=== PATIENT | female | born 1965 | race American Indian/Alaskan Native ===

== ENCOUNTER 2018-11-25 14:24 | Inpatient (IN) | payer MEDICAID ==
[2018-11-25] MEDS ORDERED: VANCOMYCIN PHARMACY TO DOSE IV SCH (15:00)
[2018-11-25 15:37] LABS: Hemoglobin 11.5 gm/dl (10.1-14.3); Mean Corpuscular HGB Conc 31 % (30-34); Mean Corpuscular Volume 74 fl (79-97); Platelet Count 505 K/mm3 (140-440); Red Blood Count 5.03 M/mm3 (3.65-5.03); Red Cell Distribution Width 14.4 % (13.2-15.2)
[2018-11-25 15:54] LABS: Alanine Aminotransferase 27 units/L (7-56); Albumin 3.2 g/dL (3.9-5); BUN/Creatinine Ratio 18; Blood Urea Nitrogen 7 mg/dL (7-17); Calcium 9.6 mg/dL (8.4-10.2); Hemolysis Index 1
[2018-11-25] MEDS ORDERED: VANCOMYCIN 2,000 MG in NACL 0.9% 500 ML 500 ML IV ONE (16:00)
--- NOTE | 2018-11-25 16:18 | XRay Report ---
CHEST 1 VIEW INDICATION: abscess. Fever COMPARISON: FINDINGS: Support devices: None. Heart: Mild cardiomegaly. Lungs/Pleura: Pulmonary venous congestion and trace left pleural effusion. No obvious pneumonia. Additional findings: None. IMPRESSION: Mild volume overload. Signer Name: Ifeanyi Galvan Jr, MD Signed: 11/25/2018 4:13 PM Workstation Name: [id number]
[2018-11-25 16:21] LABS: Hypochromasia 1+; Total Cells Counted 100
--- NOTE | 2018-11-25 16:47 | Emergency Department Report ---
- General Chief Complaint: Skin/Abscess/Foreign Body Stated Complaint: RUPTURED ABSCESS Time Seen by Provider: 11/25/18 14:38 Source: EMS Mode of arrival: Stretcher Limitations: No Limitations - History of Present Illness Initial Comments: Mrs. Márquez is a 53 year old female who presents with abscess. Mrs. Márquez has a history of several medical conditions including meningioma hypertension, diabetes mellitus, seizures, respiratory failure, sarcoidosis, type hypothyroidism, severe obesity, dyslipidemia, sleep apnea, duodenal ulcer, GI bleed, fibromyalgia. She is bedbound. She resides at [facility], which is a retirement facility. She stated that the abscess in her left upper quadrant has been present for a week and a half. The abscess began draining today. She also has surrounding redness. She denies fever. She has mild discomfort. -: Gradual, week(s) (1.5) Location: abdomen 1 - Redness extending from large abscess Place: home Associated Symptoms: none - Related Data Allergies Allergy/AdvReac Type Severity Reaction Status Date / Time No Known Allergies Allergy Unverified 11/25/18 15:07 ED Review of Systems ROS: Stated complaint: RUPTURED ABSCESS Other details as noted in HPI Comment: All other systems reviewed and negative Constitutional: denies: fever, malaise Cardiovascular: denies: chest pain Gastrointestinal: denies: abdominal pain, nausea, vomiting Skin: lesions ED Past Medical Hx - Past Medical History Previous Medical History?: Yes Hx Diabetes: Yes Additional medical history: respiratory failure,hypothyroidism,sleep apnea,encaphalopath,sarcoidosis,fibromyalgia,anemia - Surgical History Past Surgical History?: Yes Additional Surgical History: Daughter states patient did have a feeding tube previously - Social History Smoking Status: Never Smoker ED Physical Exam - General Limitations: No Limitations General appearance: alert, in no apparent distress, other (alert and able to provide history no acute distress appears chronically ill, mostly immobile) - Head Head exam: Present: atraumatic, normocephalic - Eye Eye exam: Present: normal appearance - ENT ENT exam: Present: mucous membranes moist - Neck Neck exam: Present: normal inspection - Respiratory Respiratory exam: Present: normal lung sounds bilaterally. Absent: respiratory distress, wheezes, rales, rhonchi - Cardiovascular Cardiovascular Exam: Present: regular rate, normal rhythm, normal heart sounds. Absent: systolic murmur, diastolic murmur, rubs, gallop - GI/Abdominal GI/Abdominal exam: Present: soft, other (large abscess LUQ 1 cm ulcer/openin ounces of pus expressed with active drainage, extensive erythema/cellulitis involving the abdomen). Absent: guarding, rebound, rigid - Extremities Exam Extremities exam: Present: normal inspection - Back Exam Back exam: Present: normal inspection - Neurological Exam Neurological exam: Present: alert, oriented X3 - Psychiatric Psychiatric exam: Present: normal affect, normal mood - Skin Skin exam: Absent: rash ED Course Vital Signs 11/25/18 11/25/18 11/25/18 14:38 16:00 16:30 Temperature 99 F Pulse Rate 99 H 100 H Respiratory 18 18 35 H Rate Blood Pressure 113/56 102/48 Blood Pressure [Left] O2 Sat by Pulse 100 100 94 Oximetry 11/25/18 11/25/18 11/25/18 17:17 18:03 18:57 Temperature Pulse Rate 78 110 H 108 H Respiratory 18 32 H 25 H Rate Blood Pressure Blood Pressure 97/47 115/37 95/48 [Left] O2 Sat by Pulse 100 99 100 Oximetry 11/25/18 19:22 Temperature Pulse Rate 108 H Respiratory 18 Rate Blood Pressure Blood Pressure 117/51 [Left] O2 Sat by Pulse 100 Oximetry ED Medical Decision Making - Lab Data Result diagrams: 11/25/18 15:22 11/25/18 15:22 Laboratory Results - last 24 hr 11/25/18 11/25/18 11/25/18 15:22 15:22 15:22 WBC 15.1 H RBC 5.03 Hgb 11.5 Hct 37.0 MCV 74 L MCH 23 L MCHC 31 RDW 14.4 Plt Count 505 H Add Manual Diff Complete Total Counted 100 Seg Neuts % (Manual) 73.0 H Band Neutrophils % 0 Lymphocytes % (Manual) 13.0 L Reactive Lymphs % (Man) 0 Monocytes % (Manual) 12.0 H Eosinophils % (Manual) 1.0 Basophils % (Manual) 1.0 Metamyelocytes % 0 Myelocytes % 0 Promyelocytes % 0 Blast Cells % 0 Nucleated RBC % Not Reportable Seg Neutrophils # Man 11.0 H Band Neutrophils # 0.0 Lymphocytes # (Manual) 2.0 Abs React Lymphs (Man) 0.0 Monocytes # (Manual) 1.8 H Eosinophils # (Manual) 0.2 Basophils # (Manual) 0.2 H Metamyelocytes # 0.0 Myelocytes # 0.0 Promyelocytes # 0.0 Blast Cells # 0.0 WBC Morphology Not Reportable Hypersegmented Neuts Not Reportable Hyposegmented Neuts Not Reportable Hypogranular Neuts Not Reportable Smudge Cells Not Reportable Toxic Granulation Not Reportable Toxic Vacuolation Not Reportable Dohle Bodies Not Reportable Pelger-Huet Anomaly Not Reportable Marcel Rods Not Reportable Platelet Estimate Not Reportable Clumped Platelets Not Reportable Plt Clumps, EDTA Not Reportable Large Platelets Not Reportable Giant Platelets Not Reportable Platelet Satelliting Not Reportable Plt Morphology Comment Not Reportable RBC Morphology Not Reportable Dimorphic RBCs Not Reportable Polychromasia Not Reportable Hypochromasia 1+ Poikilocytosis Not Reportable Anisocytosis Not Reportable Microcytosis Not Reportable Macrocytosis Not Reportable Spherocytes Not Reportable Pappenheimer Bodies Not Reportable Sickle Cells Not Reportable Target Cells Not Reportable Tear Drop Cells Not Reportable Ovalocytes Not Reportable Helmet Cells Not Reportable Moran-Cantril Bodies Not Reportable [place] Rings Not Reportable Humble Cells Not Reportable Bite Cells Not Reportable Crenated Cell Not Reportable Elliptocytes Not Reportable Acanthocytes (Spur) Not Reportable Rouleaux Not Reportable Hemoglobin C Crystals Not Reportable Schistocytes Not Reportable Malaria parasites Not Reportable Levi Bodies Not Reportable Hem Pathologist Commnt No Sodium 133 L Potassium 3.7 Chloride 96.6 L Carbon Dioxide 22 Anion Gap 18 BUN 7 Creatinine 0.4 L Estimated GFR > 60 BUN/Creatinine Ratio 18 Glucose 400 H Lactic Acid 2.50 H* Calcium 9.6 Total Bilirubin 0.50 AST 28 ALT 27 Alkaline Phosphatase 236 H Total Protein 7.5 Albumin 3.2 L Albumin/Globulin Ratio 0.7 11/25/18 16:05 WBC RBC Hgb Hct MCV MCH MCHC RDW Plt Count Add Manual Diff Total Counted Seg Neuts % (Manual) Band Neutrophils % Lymphocytes % (Manual) Reactive Lymphs % (Man) Monocytes % (Manual) Eosinophils % (Manual) Basophils % (Manual) Metamyelocytes % Myelocytes % Promyelocytes % Blast Cells % Nucleated RBC % Seg Neutrophils # Man Band Neutrophils # Lymphocytes # (Manual) Abs React Lymphs (Man) Monocytes # (Manual) Eosinophils # (Manual) Basophils # (Manual) Metamyelocytes # Myelocytes # Promyelocytes # Blast Cells # WBC Morphology Hypersegmented Neuts Hyposegmented Neuts Hypogranular Neuts Smudge Cells Toxic Granulation Toxic Vacuolation Dohle Bodies Pelger-Huet Anomaly Marcel Rods Platelet Estimate Clumped Platelets Plt Clumps, EDTA Large Platelets Giant Platelets Platelet Satelliting Plt Morphology Comment RBC Morphology Dimorphic RBCs Polychromasia Hypochromasia Poikilocytosis Anisocytosis Microcytosis Macrocytosis Spherocytes Pappenheimer Bodies Sickle Cells Target Cells Tear Drop Cells Ovalocytes Helmet Cells Moran-Cantril Bodies [place] Rings Humble Cells Bite Cells Crenated Cell Elliptocytes Acanthocytes (Spur) Rouleaux Hemoglobin C Crystals Schistocytes Malaria parasites Levi Bodies Hem Pathologist Commnt Sodium Potassium Chloride Carbon Dioxide Anion Gap BUN Creatinine Estimated GFR BUN/Creatinine Ratio Glucose Lactic Acid 2.40 H* Calcium Total Bilirubin AST ALT Alkaline Phosphatase Total Protein Albumin Albumin/Globulin Ratio - Radiology Data Radiology results: report reviewed CT abdomen and pelvis, area of induration with limitation ill-defined fluid and gas but was an anterior abdominal wall of the left upper quadrant possibly related to previous gastrostomy tube - Medical Decision Making Large abdominal wall abscess, with cellulitis. I consulted general surgeon Dr. West, she agreed to follow patient. Hospitalist service will admit. Broad spectrum Antibiotics initiated in the emergency department. Labs notable for leukocytosis 15,000, lactic acid 2.4. Critical care attestation.: If time is entered above; I have spent that time in minutes in the direct care of this critically ill patient, excluding procedure time. ED Disposition Clinical Impression: Abdominal wall cellulitis, Abdominal wall abscess Disposition: OP ADMIT IP TO THIS HOSP Is pt being admited?: Yes Does the pt Need Aspirin: No Condition: Stable
[2018-11-25] MEDS ORDERED: NACL 0.9% 1000 ML 1,000 ML IV ONE (16:48)
--- NOTE | 2018-11-25 18:32 | Cat Scan Report ---
CT ABDOMEN AND PELVIS WITH CONTRAST INDICATION / CLINICAL INFORMATION: abdominal wall abscess left side abscess for two weeks and it burst today. TECHNIQUE: Axial CT images were obtained through the abdomen and pelvis after IV contrast. All CT scans at this location are performed using CT dose reduction for ALARA by means of automated exposure control. COMPARISON: None available. FINDINGS: LOWER CHEST: Mild bibasilar atelectasis. LIVER: No significant abnormality. GALLBLADDER: Not visualized. Surgically absent versus extremely contracted. BILE DUCTS: No significant abnormality. PANCREAS: No significant abnormality. SPLEEN: No significant abnormality. ADRENALS: No significant abnormality. RIGHT KIDNEY and URETER: No significant abnormality. LEFT KIDNEY and URETER: No significant abnormality. STOMACH and SMALL BOWEL: Metallic density along the anterior wall of the stomach just beneath the abd ominal wall likely related to previous surgery, possibly gastrostomy tube. No significantly dilated l oops of small bowel. COLON: The cecum is hypermobile and located in the anterior abdomen within a lax lower anterior abdom inal wall. APPENDIX: Not definitely visualized. PERITONEUM: No free fluid. No free air. No fluid collection. LYMPH NODES: No significant adenopathy. AORTA and ARTERIES: No significant abnormality. IVC and VEINS: No significant abnormality. URINARY BLADDER: No significant abnormality. REPRODUCTIVE ORGANS: No significant abnormality. ADDITIONAL FINDINGS: In addition to the metallic density along the anterior wall the stomach, there i s a curvilinear metallic density in the adjacent anterior abdominal wall likely related to previous s urgery, again possibly previous gastrostomy tube. There is moderate surrounding induration in the ant erior abdominal wall with inflammation extending into the right upper quadrant with ill-defined fluid and several gas bubbles. No discrete, drainable collection is present at this time. Inflammatory pro cess extends to the skin in the left upper abdomen as seen on axial series 7 image 48. SKELETAL SYSTEM: No significant abnormality. IMPRESSION: 1. Area of induration with inflammation and ill-defined fluid and gas bubbles in the anterior abdomin al wall with the epicenter in the left upper quadrant possibly related to previous gastrostomy tube. No discrete drainable fluid collection at this time. Signer Name: Otoniel Simmons MD Signed: 11/25/2018 6:27 PM Workstation Name: [id number]
--- NOTE | 2018-11-25 22:01 | History and Physical Report ---
History of Present Illness Date of examination: 11/25/18 History of present illness: 53-year-old male with multiple medical problems including hypertension, diabetes, seizures, meningioma, sarcoidosis, hypothyroidism, hyperlipidemia, sleep apnea, duodenal ulcer, morbid obesity presented emergency room for evaluation of purulent drainage from the previous PEG tube site. complain of pain, unable to give details. Review of system difficult to obtain PAST MEDICAL HISTORY:hypertension, diabetes, seizures, meningioma, sarcoidosis, hypothyroidism, hyperlipidemia, sleep apnea, duodenal ulcer, morbid obesity PAST SURGICAL HISTORY:PEG tube FAMILY HISTORY:hypertension, diabetes SOCIAL HISTORY: Denies tobacco, drugs, alcohol Medications and Allergies Allergies Allergy/AdvReac Type Severity Reaction Status Date / Time No Known Allergies Allergy Unverified 11/25/18 15:07 Home Medications Medication Instructions Recorded Confirmed Last Taken Type Atorvastatin Calcium 40 mg PO BID 11/26/18 11/26/18 11/25/18 08:00 History Cholecalciferol Vit D3 [Vitamin D3 1,000 1000units PO QDAY 11/26/18 11/26/18 11/25/18 08:00 History 1,000 UNIT TAB] Eliquis 5 mg PO QDAY 11/26/18 11/26/18 Unknown History HYDROcodone/APAP 5-325 [[place] 1 each PO Q4HR PRN 11/26/18 11/26/18 Unknown History 5/325] Hydrocortisone [Cortef TAB] 10 mg PO BID 11/26/18 11/26/18 Unknown History Insulin Lispro Prot/Lispro 45 SUB-Q BID 11/26/18 Unknown History [HumaLOG Mix 75/25 Vial] Lasix TAB 20 mg PO BID 11/26/18 11/26/18 Unknown History Levothyroxine [Synthroid] 50 mcg PO QAM 11/26/18 11/26/18 11/24/18 08:00 History Lispro Insulin [HumaLOG] See Protocol SUB-Q 11/26/18 11/25/18 History Metoprolol [Lopressor TAB] 50 mg PO BID 11/26/18 11/26/18 Unknown History Mometasone 0.1% (Nf) BID 11/26/18 Unknown History Pantoprazole [Protonix] 40 mg PO BID 11/26/18 11/26/18 Unknown History Pregabalin [Lyrica] 150 mg PO BID 11/26/18 11/26/18 11/25/18 08:00 History Active Meds: Active Medications Enoxaparin Sodium (Lovenox) 30 mg SUB-Q QDAY VIOLETA Vancomycin HCl 1,500 mg/ (Sodium Chloride) 530 mls @ 333.333 mls/hr IV Q12H [facility] Exam - Physical Exam Narrative exam: General Apperance: The patient sitting in bed no acute distress HEENT: Normocephalic, atraumatic. Pupils equally round and reactive to light, extraocular movement intact, and no sclericterus or JVD or thyromegaly or nodule. Neck supple, no carotid bruit, mucous membranes moist, no exudate or erythema Heart: S1-S2, regular is rhythm Lungs: Clear to auscultation bilaterally, breathing comfortable Abdomen: Positive bowel sounds, soft, tender in LUQ, + erythema, foul smelling discharge leaking from the PEG tube site, nondistended, no organomegaly Extremities: trace edema, no cyanosis clubbing Skin: no rash, nodule, warm and dry Neuro:CN 2 -12 intact,speech is fluent - Constitutional Vitals: Temp Pulse Resp BP Pulse Ox 99 F 114 H 35 H 120/46 95 11/25/18 14:38 11/25/18 21:00 11/25/18 21:00 11/25/18 21:00 11/25/18 21:00 Results - Labs CBC & Chem 7: 11/26/18 04:15 11/26/18 04:15 Labs: Abnormal lab results 11/25/18 11/25/18 11/25/18 Range/Units 15:22 15:22 15:22 WBC 15.1 H (4.5-11.0) K/mm3 MCV 74 L (79-97) fl MCH 23 L (28-32) pg Plt Count 505 H (140-440) K/mm3 Seg Neuts % (Manual) 73.0 H (40.0-70.0) % Lymphocytes % (Manual) 13.0 L (13.4-35.0) % Monocytes % (Manual) 12.0 H (0.0-7.3) % Seg Neutrophils # Man 11.0 H (1.8-7.7) K/mm3 Monocytes # (Manual) 1.8 H (0.0-0.8) K/mm3 Basophils # (Manual) 0.2 H (0.0-0.1) K/mm3 Sodium 133 L (137-145) mmol/L Chloride 96.6 L (98-107) mmol/L Creatinine 0.4 L (0.7-1.2) mg/dL Glucose 400 H (65-100) mg/dL Lactic Acid 2.50 H* (0.7-2.0) mmol/L Alkaline Phosphatase 236 H (35-129) units/L Albumin 3.2 L (3.9-5) g/dL 11/25/ Range/Units 16:05 WBC (4.5-11.0) K/mm3 MCV (79-97) fl MCH (28-32) pg Plt Count (140-440) K/mm3 Seg Neuts % (Manual) (40.0-70.0) % Lymphocytes % (Manual) (13.4-35.0) % Monocytes % (Manual) (0.0-7.3) % Seg Neutrophils # Man (1.8-7.7) K/mm3 Monocytes # (Manual) (0.0-0.8) K/mm3 Basophils # (Manual) (0.0-0.1) K/mm3 Sodium (137-145) mmol/L Chloride (98-107) mmol/L Creatinine (0.7-1.2) mg/dL Glucose (65-100) mg/dL Lactic Acid 2.40 H* (0.7-2.0) mmol/L Alkaline Phosphatase (35-129) units/L Albumin (3.9-5) g/dL - Imaging and Cardiology Chest x-ray: report reviewed CT scan - abdomen: report reviewed CT scan - pelvis: report reviewed Assessment and Plan Assessment Abdominal abscess hypertension diabetes seizures meningioma sarcoidosis hypothyroidism hyperlipidemia sleep apnea duodenal ulcer morbid obesity Plan Admit to medicine Start IV fluid, IV Zosyn, vancomycin Obtain wound culture, follow blood culture Surgery was consulted to see the patient Checks fingersticks, start sliding scale Continue appropriate outpatient medications DVT prophylaxis
[2018-11-25] MEDS ORDERED: ZOSYN/NS 4.5GM/100ML 4.5 GM/100 ML VIAL IV ONE (22:52)
[2018-11-25] MEDS: ZOSYN/NS 4.5GM/100ML 4.5 GM/100 ML VIAL IV SCH (23:26)
[2018-11-25] MEDS ORDERED: HumuLIN R ONE (23:50)
[2018-11-26] MEDS ORDERED: SODIUM CHLORIDE FLUSH SYRINGE 10 ML IV PRN (00:14)
[2018-11-26] MEDS ORDERED: ZOFRAN IV PRN ×2 (00:14→11:17)
[2018-11-26] MEDS ORDERED: MORPHINE IV PRN ×2 (00:14→15:00)
[2018-11-26] MEDS ORDERED: D50W (25GM) Syringe IV PRN ×2 (00:15→17:17)
[2018-11-26 04:56] LABS: BUN/Creatinine Ratio 15; Blood Urea Nitrogen 6 mg/dL (7-17); Calcium 9.1 mg/dL (8.4-10.2); Hemolysis Index 0
[2018-11-26 05:09] LABS: Hematocrit 35.2 % (30.3-42.9); Hemoglobin 11.1 gm/dl (10.1-14.3); Mean Corpuscular HGB Conc 32 % (30-34); Mean Corpuscular Volume 72 fl (79-97); Platelet Count 507 K/mm3 (140-440); Red Blood Count 4.86 M/mm3 (3.65-5.03); Red Cell Distribution Width 14.4 % (13.2-15.2)
[2018-11-26] MEDS: NACL 0.9% 1000 ML 1,000 ML IV SCH ×2 (05:38→11:35)
[2018-11-26] MEDS: VANCOMYCIN 1,500 MG in NACL 0.9% 500 ML 500 ML IV SCH ×2 (06:10→18:13)
[2018-11-26] MEDS: ZOSYN/NS 4.5GM/100ML 4.5 GM/100 ML VIAL IV SCH ×3 (06:10→21:20)
[2018-11-26 07:13] LABS: Basophils % (Manual) 0 % (0.0-1.8); Eosinophils % (Manual) 0 % (0.0-4.3); Total Cells Counted 100
[2018-11-26 07:14] LABS: Anisocytosis 1+; Hypochromasia 1+; Platelet Estimate Consistent w Auto; Poikilocytosis Rare
[2018-11-26] MEDS ORDERED: LOVENOX SUB-Q SCH (10:00)
--- NOTE | 2018-11-26 10:38 | Consultation ---
History of Present Illness Consult date: 11/26/18 Chief complaint: abdominal drainage - History of present illness History of present illness: 53 yo F with Hx of HTN, DM, bedbound status presents for evaluation of abdominal pain and drainage. Patient states pain is located in the left upper abdomen. This started several days ago. It is moderate and there are no exacerbating or alleviating factors. Pain does not radiate. There is drainage is the location of the pain. The drainage is brown and foul smelling. She had a PEG last year which has since been removed. +f/c. She has had abscess in the past which required surgical drainage and debridement. Past History Past Medical History: diabetes, hypertension, hyperlipidemia, other (obesity, bedbound, brain tumor, thigh abscess) Past Surgical History: (x3), Other (brain surgery, incision and drainage of thigh abscess) Social history: other (lives in [place]). denies: smoking, alcohol abuse, prescription drug abuse Family history: no significant family history Medications and Allergies Allergies Allergy/AdvReac Type Severity Reaction Status Date / Time erythromycin base Allergy Itching Verified 11/26/18 06:03 [From Erythrocin] Penicillins Allergy Rash Verified 11/26/18 06:02 Home Medications Medication Instructions Recorded Confirmed Last Taken Type Atorvastatin Calcium 40 mg PO BID 11/26/18 11/26/18 11/25/18 08:00 History Cholecalciferol Vit D3 [Vitamin D3 1,000 1000units PO QDAY 11/26/18 11/26/18 11/25/18 08:00 History 1,000 UNIT TAB] Eliquis 5 mg PO QDAY 11/26/18 11/26/18 Unknown History HYDROcodone/APAP 5-325 [[place] 1 each PO Q4HR PRN 11/26/18 11/26/18 Unknown History 5/325] Hydrocortisone [Cortef TAB] 10 mg PO BID 11/26/18 11/26/18 Unknown History Insulin Glargine,Hum.rec.anlog 11/26/18 Unknown History [Lantus Solostar] Insulin Glargine,Hum.rec.anlog 60 unit SQ QHS 11/26/18 11/26/18 Unknown History [Lantus Solostar] Insulin Lispro Prot/Lispro 45 SUB-Q BID 11/26/18 Unknown History [HumaLOG Mix 75/25 Vial] Lasix TAB 20 mg PO BID 11/26/18 11/26/18 Unknown History Levothyroxine [Synthroid] 50 mcg PO QAM 11/26/18 11/26/18 11/24/18 08:00 History Lispro Insulin [HumaLOG] See Protocol SUB-Q 11/26/18 11/25/18 History Metoprolol [Lopressor TAB] 50 mg PO BID 11/26/18 11/26/18 Unknown History Mometasone 0.1% (Nf) 0.1 TP BID 11/26/18 Unknown History Pantoprazole [Protonix] 40 mg PO BID 11/26/18 11/26/18 Unknown History Petrolatum,White [Vaseline White 5 gm TP BID 11/26/18 11/26/18 Unknown History Petroleum] Pregabalin [Lyrica] 150 mg PO BID 11/26/18 11/26/18 11/25/18 08:00 History lamoTRIgine [LaMICtal] 25 mg PO BID 11/26/18 11/26/18 Unknown History Active Meds: Active Medications Acetaminophen (Tylenol) 650 mg PO Q4H PRN PRN Reason: Pain MILD(1-3)/Fever >100.5/TANG Dextrose (D50w (25gm) Syringe) 50 ml IV PRN PRN PRN Reason: Hypoglycemia Enoxaparin Sodium (Lovenox) 40 mg SUB-Q QDAY@1000 VIOLETA Vancomycin HCl 1,500 mg/ (Sodium Chloride) 530 mls @ 333.333 mls/hr IV Q12H VIOLETA Last Admin: 11/26/18 06:10 Dose: 333.333 mls/hr Documented by: Sodium Chloride (Nacl 0.9% 1000 Ml) 1,000 mls @ 100 mls/hr IV DIRECT VIOLETA Last Admin: 11/26/18 05:38 Dose: 100 mls/hr Documented by: Piperacillin Sod/Tazobactam Sod (Zosyn/Ns 4.5gm/100ml) 4.5 gm in 100 mls @ 200 mls/hr IV Q8HR [facility]; Protocol Last Admin: 11/26/18 06:10 Dose: Not Given Documented by: Morphine Sulfate (Morphine) 1 mg IV Q4H PRN PRN Reason: Pain, Moderate (4-6) Ondansetron HCl (Zofran) 4 mg IV Q4H PRN PRN Reason: Nausea And Vomiting Sodium Chloride (Sodium Chloride Flush Syringe 10 Ml) 10 ml IV BID VIOLETA Sodium Chloride (Sodium Chloride Flush Syringe 10 Ml) 10 ml IV PRN PRN PRN Reason: LINE FLUSH Review of Systems All systems: negative (10 pt ROS performed and negative except for that listed in HPI) Exam Vital Signs Temp Pulse Resp BP Pulse Ox 99 F 99 H 18 113/56 100 11/25/18 14:38 11/25/18 14:38 11/25/18 14:38 11/25/18 14:38 11/25/18 14:38 Narrative exam: Gen: AAOx3. NAD ENT: no scleral icterus or conjunctival pallor CV: s1, S2+ Resp: even and unlabored Abd: soft, ND, obese. Copious purulent drainage from skin opening in left upper abdomen with minimal surrounding TTP. Dressing applied. Ext: no c/c/e Results - Labs 11/26/18 04:15 11/26/18 04:15 Abnormal lab results 11/25/18 11/25/18 11/25/18 Range/Units 15:22 15:22 15:22 WBC 15.1 H (4.5-11.0) K/mm3 MCV 74 L (79-97) fl MCH 23 L (28-32) pg Plt Count 505 H (140-440) K/mm3 Seg Neuts % (Manual) 73.0 H (40.0-70.0) % Lymphocytes % (Manual) 13.0 L (13.4-35.0) % Monocytes % (Manual) 12.0 H (0.0-7.3) % Seg Neutrophils # Man 11.0 H (1.8-7.7) K/mm3 Monocytes # (Manual) 1.8 H (0.0-0.8) K/mm3 Basophils # (Manual) 0.2 H (0.0-0.1) K/mm3 Sodium 133 L (137-145) mmol/L Chloride 96.6 L (98-107) mmol/L BUN (7-17) mg/dL Creatinine 0.4 L (0.7-1.2) mg/dL Glucose 400 H (65-100) mg/dL Lactic Acid 2.50 H* (0.7-2.0) mmol/L Alkaline Phosphatase 236 H (35-129) units/L Albumin 3.2 L (3.9-5) g/dL 11/25/18 11/26/18 11/26/18 Range/Units 16:05 04:15 04:15 WBC 14.8 H (4.5-11.0) K/mm3 MCV 72 L (79-97) fl MCH 23 L (28-32) pg Plt Count 507 H (140-440) K/mm3 Seg Neuts % (Manual) 73.0 H (40.0-70.0) % Lymphocytes % (Manual) (13.4-35.0) % Monocytes % (Manual) 8.0 H (0.0-7.3) % Seg Neutrophils # Man 10.8 H (1.8-7.7) K/mm3 Monocytes # (Manual) 1.2 H (0.0-0.8) K/mm3 Basophils # (Manual) (0.0-0.1) K/mm3 Sodium (137-145) mmol/L Chloride (98-107) mmol/L BUN 6 L (7-17) mg/dL Creatinine 0.4 L (0.7-1.2) mg/dL Glucose 340 H (65-100) mg/dL Lactic Acid 2.40 H* (0.7-2.0) mmol/L Alkaline Phosphatase (35-129) units/L Albumin (3.9-5) g/dL Diabetes panel 11/25/18 11/26/18 Range/Units 15:22 04:15 Sodium 133 L 137 (137-145) mmol/L Potassium 3.7 4.1 (3.6-5.0) mmol/L Chloride 96.6 L 99.6 (98-107) mmol/L Carbon Dioxide 22 23 (22-30) mmol/L BUN 7 6 L (7-17) mg/dL Creatinine 0.4 L 0.4 L (0.7-1.2) mg/dL Glucose 400 H 340 H (65-100) mg/dL Calcium 9.6 9.1 (8.4-10.2) mg/dL AST 28 (5-40) units/L ALT 27 (7-56) units/L Alkaline Phosphatase 236 H (35-129) units/L Total Protein 7.5 (6.3-8.2) g/dL Albumin 3.2 L (3.9-5) g/dL Calcium panel 11/25/18 11/26/18 Range/Units 15:22 04:15 Calcium 9.6 9.1 (8.4-10.2) mg/dL Albumin 3.2 L (3.9-5) g/dL Pituitary panel 11/25/18 11/26/18 Range/Units 15:22 04:15 Sodium 133 L 137 (137-145) mmol/L Potassium 3.7 4.1 (3.6-5.0) mmol/L Chloride 96.6 L 99.6 (98-107) mmol/L Carbon Dioxide 22 23 (22-30) mmol/L BUN 7 6 L (7-17) mg/dL Creatinine 0.4 L 0.4 L (0.7-1.2) mg/dL Glucose 400 H 340 H (65-100) mg/dL Calcium 9.6 9.1 (8.4-10.2) mg/dL Adrenal panel 11/25/18 11/26/18 Range/Units 15:22 04:15 Sodium 133 L 137 (137-145) mmol/L Potassium 3.7 4.1 (3.6-5.0) mmol/L Chloride 96.6 L 99.6 (98-107) mmol/L Carbon Dioxide 22 23 (22-30) mmol/L BUN 7 6 L (7-17) mg/dL Creatinine 0.4 L 0.4 L (0.7-1.2) mg/dL Glucose 400 H 340 H (65-100) mg/dL Calcium 9.6 9.1 (8.4-10.2) mg/dL Total Bilirubin 0.50 (0.1-1.2) mg/dL AST 28 (5-40) units/L ALT 27 (7-56) units/L Alkaline Phosphatase 236 H (35-129) units/L Total Protein 7.5 (6.3-8.2) g/dL Albumin 3.2 L (3.9-5) g/dL - Imaging CT scan - abdomen: report reviewed, image reviewed CT scan - pelvis: report reviewed, image reviewed Assessment and Plan 53 yo F with abdominal wall abscess Plan: 1. NPO 2. IVF 3. IV abx - on vanco/zosyn - received zosyn yesterday without allergic reaction 4. will obtain cultures 5. prn pain control 6. Will need drainage of abscess and debridement of wound in [place]. Consent obtained. 7. wound care consult for possible vac placement Spoke with patient's daughter over the telephone at patient's request and explained the plan. D/W Dr. Mg. Thank you, please call with questions.
[2018-11-26] MEDS: LOVENOX SUB-Q SCH (10:45)
[2018-11-26] MEDS: SODIUM CHLORIDE FLUSH SYRINGE 10 ML IV SCH ×2 (10:53→21:24)
[2018-11-26] MEDS ORDERED: SUBLIMAZE IV PRN (11:17)
--- NOTE | 2018-11-26 11:19 | Anesthesia Day of Surgery ---
Anesthesia Day of Surgery - Day of Surgery Patient Examined: Yes Patient H&P Reviewed: Yes Patient is NPO: Yes
--- NOTE | 2018-11-26 11:27 | Anesthesia Consultation ---
Anesthesia Consult and Med Hx Date of service: 11/26/18 - Airway Anesthetic Teeth Evaluation: Good ROM Head & Neck: Adequate Mental/Hyoid Distance: Adequate Mallampati Class: Class III Intubation Access Assessment: Probably Good - Pre-Operative Health Status ASA Pre-Surgery Classification: ASA3, Emergency Proposed Anesthetic Plan: General - Pulmonary Hx Smoking: Yes (past smoker stopped 30yrs ago) Hx Asthma: No COPD: No Hx Pneumonia: No Hx Sleep Apnea: Yes - Cardiovascular System Hx Hypertension: Yes Hx Coronary Artery Disease: No (ETT last year negative per pt) Hx Heart Attack/AMI: No Hx Angina: No Hx Percutaneous Transluminal Coronary Angioplasty (PTCA): No Hx Internal Defibrillator: No Hx Peripheral Vascular Disease: No - Central Nervous System Hx Seizures: Yes (Hx meningioma) CVA: No Hx Psychiatric Problems: No - Gastrointestinal Hx Ulcer: Yes (Hx PEG Tube) - Endocrine Hx Renal Disease: No Hx End Stage Renal Disease: No Hx Cirrhosis: No Hx Liver Disease: No Hx Insulin Dependent Diabetes: Yes Hx Thyroid Disease: Yes Hx Hypothyroidism: Yes Hx Hyperthyroidism: No - Hematic Hx Anemia: Yes - Other Systems Hx Alcohol Use: Yes (past in parties) Hx Substance Use: No Hx Cancer: No Hx Obesity: Yes
[2018-11-26] MEDS ORDERED: VERSED IV NR (12:00)
[2018-11-26] MEDS ORDERED: HumuLIN R IV SCH ×2 (12:00→13:42)
--- NOTE | 2018-11-26 12:47 | Consultation ---
History of Present Illness - Reason for Consult Consult date: 11/26/18 - History of Present Illness Ms. Estrada is a 53-year-old female with a past medical history of hypertension, diabetes, history of being bedbound who initially presented with abdominal pain and drainage. She notes this began several days prior to admission and has been progressive since then. The pain is mostly in the left upper quadrant, does not radiate. She complains of drainage at the site of the pain which is brown and foul smelling and began 4 days prior to admission, though the bubble was present for longer. She notes having similar issues in the past with an associated abscess which was surgically debrided and drained. She complains of associated fevers and chills. I saw her in PACU after her surgery. Febrile during admission to 100.9 with a leukocytosis of 15. Blood cultures from 11/25 are currently pending. She is currently receiving vancomycin and pip- tazo. Chest x-ray with mild fluid overload. Abdominal CT with fluids/gas bubble in the abdominal wall. She has been evaluated by general surgery and was taken for drainage in the OR. Copious pus noted with tunnelling abscess. Past History Past Medical History: diabetes, hypertension, hyperlipidemia, other (obesity, bedbound, brain tumor, thigh abscess) Past Surgical History: (x3), Other (brain surgery, incision and drainage of thigh abscess) Social history: other (lives in [place]). denies: smoking, alcohol abuse, prescription drug abuse Family history: diabetes, hypertension Medications and Allergies Allergies Allergy/AdvReac Type Severity Reaction Status Date / Time erythromycin base Allergy Itching Verified 11/26/18 06:03 [From Erythrocin] Penicillins Allergy Rash Verified 11/26/18 06:02 Home Medications Medication Instructions Recorded Confirmed Last Taken Type Atorvastatin Calcium 40 mg PO BID 11/26/18 11/26/18 11/25/18 08:00 History Cholecalciferol Vit D3 [Vitamin D3 1,000 1000units PO QDAY 11/26/18 11/26/18 11/25/18 08:00 History 1,000 UNIT TAB] Eliquis 5 mg PO QDAY 11/26/18 11/26/18 Unknown History HYDROcodone/APAP 5-325 [[place]it[place] 1 each PO Q4HR PRN 11/26/18 11/26/18 Unknown History 5/325] Hydrocortisone [Cortef TAB] 10 mg PO BID 11/26/18 11/26/18 Unknown History Insulin Glargine,Hum.rec.anlog 11/26/18 Unknown History [Lantus Solostar] Insulin Glargine,Hum.rec.anlog 60 unit SQ QHS 11/26/18 11/26/18 Unknown History [Lantus Solostar] Insulin Lispro Prot/Lispro 45 SUB-Q BID 11/26/18 Unknown History [HumaLOG Mix 75/25 Vial] Lasix TAB 20 mg PO BID 11/26/18 11/26/18 Unknown History Levothyroxine [Synthroid] 50 mcg PO QAM 11/26/18 11/26/18 11/24/18 08:00 History Lispro Insulin [HumaLOG] See Protocol SUB-Q 11/26/18 11/25/18 History Metoprolol [Lopressor TAB] 50 mg PO BID 11/26/18 11/26/18 Unknown History Mometasone 0.1% (Nf) 0.1 TP BID 11/26/18 Unknown History Pantoprazole [Protonix] 40 mg PO BID 11/26/18 11/26/18 Unknown History Petrolatum,White [Vaseline White 5 gm TP BID 11/26/18 11/26/18 Unknown History Petroleum] Pregabalin [Lyrica] 150 mg PO BID 11/26/18 11/26/18 11/25/18 08:00 History lamoTRIgine [LaMICtal] 25 mg PO BID 11/26/18 11/26/18 Unknown History Active Meds: Active Medications Acetaminophen (Tylenol) 650 mg PO Q4H PRN PRN Reason: Pain MILD(1-3)/Fever >100.5/TANG Dextrose (D50w (25gm) Syringe) 50 ml IV PRN PRN PRN Reason: Hypoglycemia Enoxaparin Sodium (Lovenox) 40 mg SUB-Q QDAY@1000 VIOLETA Last Admin: 11/26/18 10:45 Dose: 40 mg Documented by: Fentanyl (Sublimaze) 50 mcg IV Q5MIN PRN PRN Reason: Pain , Severe (7-10) Stop: 11/26/18 23:00 Hydromorphone HCl (Dilaudid) 0.5 mg IV Q10MIN PRN PRN Reason: Pain , Severe (7-10) Stop: 11/26/18 23:00 Vancomycin HCl 1,500 mg/ (Sodium Chloride) 530 mls @ 333.333 mls/hr IV Q12H [facility] Last Admin: 11/26/18 06:10 Dose: 333.333 mls/hr Documented by: Sodium Chloride (Nacl 0.9% 1000 Ml) 1,000 mls @ 100 mls/hr IV DIRECT [facility] Last Admin: 11/26/18 11:35 Dose: 100 mls/hr Documented by: Piperacillin Sod/Tazobactam Sod (Zosyn/Ns 4.5gm/100ml) 4.5 gm in 100 mls @ 200 mls/hr IV Q8HR [facility]; Protocol Last Admin: 11/26/18 06:10 Dose: Not Given Documented by: Midazolam HCl (Versed) 2 mg IV PREOP NR Stop: 11/26/18 23:59 Morphine Sulfate (Morphine) 1 mg IV Q4H PRN PRN Reason: Pain, Moderate (4-6) Ondansetron HCl (Zofran) 4 mg IV Q4H PRN PRN Reason: Nausea And Vomiting Ondansetron HCl (Zofran) 4 mg IV ONCE PRN PRN Reason: Nausea And Vomiting Sodium Chloride (Sodium Chloride Flush Syringe 10 Ml) 10 ml IV BID [facility] Last Admin: 11/26/18 10:53 Dose: 10 ml Documented by: Sodium Chloride (Sodium Chloride Flush Syringe 10 Ml) 10 ml IV PRN PRN PRN Reason: LINE FLUSH Review of Systems Constitutional: fever, chills, no sweats, no fatigue Ears, nose, mouth and throat: no nasal discharge, no sinus pain, no sore throat Cardiovascular: no chest pain, no orthopnea, no palpitations, no edema Respiratory: no cough, no hemoptysis, no shortness of breath, no dyspnea on exertion Gastrointestinal: abdominal pain, no nausea, no vomiting, no diarrhea Genitourinary Female: no dysuria, no urinary frequency, no urgency Musculoskeletal: no neck pain, no low back pain, no leg numbness/tingling Integumentary: sores, no rash, no pruritis, no redness Neurological: no numbness, no tingling, no seizures, no syncope Endocrine: no cold intolerance, no heat intolerance, no polyuria Hematologic/Lymphatic: no easy bruising, no easy bleeding, no lymphadenopathy Physical Examination - Physical Exam Narrative exam: Constitutional: awake, no distress, following commands Head, Ears, Nose: Normocephalic, atraumatic. External ears, nose normal Eyes: Conjunctivae/corneas clear. No icterus. No ptosis. Neck: Supple, no meningeal signs Oral: fair dentition, moist mucous membranes Cardiovascular: S1, S2 normal. Normal rhythm Respiratory: Good air entry, clear to auscultation bilaterally GI: tender due to surgery. Not undressed in PACU. Musculoskeletal: No pedal edema, Skin: No rash or abscess Hem/Lymphatic: No palpable cervical or supraclavicular nodes. No lymphangitis Psych: no agitation Neurological: Moves all extremities, no focal defects - Constitutional Vitals: Vital Signs Temp Pulse Resp BP Pulse Ox 99 F 119 H 22 144/63 98 11/26/18 10:55 11/26/18 10:55 11/26/18 10:55 11/26/18 10:55 11/26/18 10:55 Temperature -Last 24 Hours Temperature 99 F Temperature 100.9 F Temperature 100.9 F Temperature 99.4 F Temperature 100.4 F Temperature 100.4 F Temperature 99 F Results - Labs CBC & Chem 7: 11/26/18 04:15 11/26/18 04:15 Labs: Abnormal lab results 11/25/18 11/25/18 11/25/18 Range/Units 15:22 15:22 15:22 WBC 15.1 H (4.5-11.0) K/mm3 MCV 74 L (79-97) fl MCH 23 L (28-32) pg Plt Count 505 H (140-440) K/mm3 Seg Neuts % (Manual) 73.0 H (40.0-70.0) % Lymphocytes % (Manual) 13.0 L (13.4-35.0) % Monocytes % (Manual) 12.0 H (0.0-7.3) % Seg Neutrophils # Man 11.0 H (1.8-7.7) K/mm3 Monocytes # (Manual) 1.8 H (0.0-0.8) K/mm3 Basophils # (Manual) 0.2 H (0.0-0.1) K/mm3 Sodium 133 L (137-145) mmol/L Chloride 96.6 L (98-107) mmol/L BUN (7-17) mg/dL Creatinine 0.4 L (0.7-1.2) mg/dL Glucose 400 H (65-100) mg/dL POC Glucose (70-105) Lactic Acid 2.50 H* (0.7-2.0) mmol/L Alkaline Phosphatase 236 H (35-129) units/L Albumin 3.2 L (3.9-5) g/dL 11/25/18 11/26/18 11/26/18 Range/Units 16:05 04:15 04:15 WBC 14.8 H (4.5-11.0) K/mm3 MCV 72 L (79-97) fl MCH 23 L (28-32) pg Plt Count 507 H (140-440) K/mm3 Seg Neuts % (Manual) 73.0 H (40.0-70.0) % Lymphocytes % (Manual) (13.4-35.0) % Monocytes % (Manual) 8.0 H (0.0-7.3) % Seg Neutrophils # Man 10.8 H (1.8-7.7) K/mm3 Monocytes # (Manual) 1.2 H (0.0-0.8) K/mm3 Basophils # (Manual) (0.0-0.1) K/mm3 Sodium (137-145) mmol/L Chloride (98-107) mmol/L BUN 6 L (7-17) mg/dL Creatinine 0.4 L (0.7-1.2) mg/dL Glucose 340 H (65-100) mg/dL POC Glucose (70-105) Lactic Acid 2.40 H* (0.7-2.0) mmol/L Alkaline Phosphatase (35-129) units/L Albumin (3.9-5) g/dL 11/26/18 11/26/18 Range/Units 11:16 12:41 WBC (4.5-11.0) K/mm3 MCV (79-97) fl MCH (28-32) pg Plt Count (140-440) K/mm3 Seg Neuts % (Manual) (40.0-70.0) % Lymphocytes % (Manual) (13.4-35.0) % Monocytes % (Manual) (0.0-7.3) % Seg Neutrophils # Man (1.8-7.7) K/mm3 Monocytes # (Manual) (0.0-0.8) K/mm3 Basophils # (Manual) (0.0-0.1) K/mm3 Sodium (137-145) mmol/L Chloride (98-107) mmol/L BUN (7-17) mg/dL Creatinine (0.7-1.2) mg/dL Glucose (65-100) mg/dL POC Glucose 348 H 325 H (70-105) Lactic Acid (0.7-2.0) mmol/L Alkaline Phosphatase (35-129) units/L Albumin (3.9-5) g/dL - Imaging and Cardiology Chest x-ray: image reviewed (mild fluid overload) CT scan - abdomen: image reviewed (fluid/gas bubble in abdominal wall) Assessment and Plan Cultures: 11/25/18 BCx - NGTD A/P: Ms. Estrada is a 53-year-old female with a past medical history of hypertension, diabetes, history of being bedbound presents with sepsis secondary to abdominal wall abscess 1. Sepsis secondary to abdominal wall abscess - now s/p debridement with si gnificant abscess formation seen and tunneling deep. 2 foreign metallic objects found. Cultures taken per surgery and are pending. Appreciate their help in this case. Will continue vanc and pip-tazo for now pending culture results and hopefully we can de-escalate. Will likely need a couple weeks of IV antibiotics, but will depend on ongoing drainage of abscess. 2. HTN 3. DM2 Recs: Continue pip-tazo 4.5g q8h continue vancomycin vanc trough after 4th dose. f/u blood and abscess cultures D/W Dr. West Thank you for the consult. We will continue to follow along with you. Diamond Pathak MD [facility] ([facility] C: [phone] O: [phone] F: [phone]
[2018-11-26] MEDS ORDERED: DIPRIVAN 10 MG/ML IV ONE ×4 (13:37)
[2018-11-26] MEDS ORDERED: MARCAINE 0.25% INFILTRATI ONE ×2 (13:38→14:07)
[2018-11-26] MEDS ORDERED: NACL 0.9% IR ONE ×2 (13:38)
[2018-11-26] MEDS ORDERED: XYLOCAINE 1% 20 mL INFILTRATI ONE (13:38)
[2018-11-26] MEDS ORDERED: SUBLIMAZE ONE (13:43)
[2018-11-26] MEDS ORDERED: VERSED ONE (13:43)
[2018-11-26] MEDS ORDERED: XYLOCAINE MPF 2% ONE (14:00)
[2018-11-26] MEDS ORDERED: XYLOCAINE 1% 20 mL ONE (14:07)
--- NOTE | 2018-11-26 14:43 | Post Operative Note ---
Date of procedure: 11/26/18 Pre-op diagnosis: abdominal wall abscess Post-op diagnosis: same Findings: Large abdominal wall abscess with cavity tunnelling towards the right lower abdomen for about 12 inches. Large amount of purulent fluid. Abscess cavity extends to fascia. Two small metallic foreign objects found in abscess cavity likely related to old PEG tube Procedure: incision and drainage of abdominal wall abscess and debridement of wound Anesthesia: MAC, local Surgeon: NICA CHEEMA Estimated blood loss: minimal Pathology: list (wound cultures) Specimen disposition: to lab Condition: stable Disposition: PACU
[2018-11-26] MEDS: DILAUDID IV PRN ×2 (15:02→15:13)
--- NOTE | 2018-11-26 15:42 | Operative Report ---
PREOPERATIVE DIAGNOSIS: Abdominal wall abscess. POSTOPERATIVE DIAGNOSIS: Abdominal wall abscess. FINDINGS: 1. Large abdominal wall abscess with cavity tunneling towards the right lower abdomen for about 12 inches. Large amount of purulent fluid. Abscess cavity extends to the fascia. 2. Two small metallic foreign objects found an abscess cavity, likely related to old PEG tube. PROCEDURE: Incision and drainage of abdominal wall abscess and debridement of wound. ANESTHESIA: MAC local. SURGEON: Nery West DO ESTIMATED BLOOD LOSS: Minimal. PATHOLOGY: 1. Wound cultures. 2. Foreign objects for identification. SPECIMEN DISPOSITION: To lab. CONDITION DISPOSITION: The patient is stable to PACU. HISTORY OF PRESENT ILLNESS AND INDICATION: The patient is a 53-year-old female who has a history of a PEG tube and who is bedbound, presented to the Emergency Room with complaints of abdominal pain and drainage. On examination of the patient, it was found that her PEG tube had been removed about a year ago and her abdominal wall did have an area with a copious amount of purulent drainage as well as surrounding erythema and tenderness. This was her old PEG site. It was recommended that she undergo further incision and drainage as well as debridement of the abscess cavity in the OR. All risks, benefits and alternatives to surgery were discussed with the patient. Consent obtained. PROCEDURE IN DETAIL: The patient was identified in the preoperative area and taken back to the operating room and placed on the operating table in supine position. After anesthesia was induced, the abdomen was prepped and draped in the usual sterile fashion. Timeout performed. Local anesthetic was infiltrated into the skin and subcutaneous tissue at the intended incision site. The wound was probed and abscess cultures obtained. A tunneler was found going from the wound to the patient's right lower abdomen. This was probed with Yankauer suction until all loculations were broken up and purulent material was expressed. The wound was opened in order to unroof part of this tunnel using a 15 blade. Dissection was carried through skin and subcutaneous tissue using electrocautery. Abscess cavity was deep and extended all the way down to the patient's fascia. Surrounding subcutaneous tissue and fascia were intact and healthy. The wound was then irrigated with pulse lavage. Hemostasis achieved using combination of electrocautery as well as Surgicel packing. Pressure was held at the sites of bleeding for 10 minutes until hemostasis was ensured. Once this was done, the wound was packed with 1 piece of saline moistened Kerlix covered with 4 x 4 fluff gauze, ABD pads and Medipore tape. At the end of the case, all sponge, instrument, sharp counts were correct x 2. The patient tolerated the procedure well and was transferred to the stretcher and taken to PACU in stable condition. JOB# [id number] NK/NTS
[2018-11-26] MEDS ORDERED: HumuLIN R IV ONE (16:00)
--- NOTE | 2018-11-26 17:18 | Progress Note ---
Assessment and Plan Assessment and plan: Patient is a 53-year-old female with a past medical history of hypertension, diabetes, seizures, meningioma, sarcoidosis, hypothyroidism, hyperlipidemia, sleep apnea, duodenal ulcer, morbid obesity, history of being bedbound who initially presented with abdominal pain and drainage and was noted ot have area of indurating with inflammation and ill-defined fluid and gas bubbles. On Evaluation of PEG tube site it was noted to have induration Febrile during admission to 100.9 with a leukocytosis of 15. Blood cultures from 11/25 are currently pending. She is currently receiving vancomycin and pip- tazo. Chest x-ray with mild fluid overload. Abdominal CT with fluids/gas bubble in the abdominal wall. She has been evaluated by general surgery and was taken for drainage in the OR. Copious pus noted with tunnelling abscess. CT A/P IMPRESSION: 1. Area of induration with inflammation and ill-defined fluid and gas bubbles in the anterior abdominal wall with the epicenter in the left upper quadrant possibly related to previous gastrostomy tube. No discrete drainable fluid collection at this time Sepsis secondary to Abdominal abscess hypertension Diabetes Mellitus Seizures meningioma Sarcoidosis hypothyroidism hyperlipidemia Sleep apnea Duodenal ulcer morbid obesity Acute Encephalopathy- worsening per daughter. Plan Supportive care ID consult Continue IV fluid, IV Zosyn, vancomycin CT head per daughters request due to changing mental status, Daughter understan ds that we do not have Neurosurgery. Insulin FOR BETTER CONTROL OF BG. Also revisit med rec in am following OR Obtain wound culture, follow blood culture Surgery was consulted to see the patient Checks fingersticks, start sliding scale Continue appropriate outpatient medications DVT prophylaxis History Interval history: Patient is seen and examined today, no new complaints. Patient going for surgery today for abscess drainage. Spoke to daughter who states patients mental status has been declined. Hospitalist Physical - Physical exam Narrative exam: General Apperance: The patient sitting in bed no acute distress HEENT: Normocephalic, atraumatic. Pupils equally round and reactive to light, extraocular movement intact, and no sclericterus or JVD or thyromegaly or nodule. Neck supple, no carotid bruit, mucous membranes moist, no exudate or erythema Heart: S1-S2, regular is rhythm Lungs: Clear to auscultation bilaterally, breathing comfortable Abdomen: Positive bowel sounds, soft, tender in LUQ, + erythema, foul smelling discharge leaking from the PEG tube site, nondistended, no organomegaly Extremities: trace edema, no cyanosis clubbing Skin: no rash, nodule, warm and dry Neuro:CN 2 -12 intact,speech is fluent - Constitutional Vitals: Temp Pulse Resp BP Pulse Ox 98.1 F 114 H 24 129/62 96 11/26/18 15:15 11/26/18 15:30 11/26/18 15:30 11/26/18 15:30 11/26/18 15:30 Results - Labs CBC & Chem 7: 11/26/18 04:15 11/26/18 04:15 Labs: Laboratory Last Values WBC 14.8 K/mm3 (4.5-11.0) H 11/26/18 04:15 RBC 4.86 M/mm3 (3.65-5.03) 11/26/18 04:15 Hgb 11.1 gm/dl (10.1-14.3) 11/26/18 04:15 Hct 35.2 % (30.3-42.9) 11/26/18 04:15 MCV 72 fl (79-97) L 11/26/18 04:15 MCH 23 pg (28-32) L 11/26/18 04:15 MCHC 32 % (30-34) 11/26/18 04:15 RDW 14.4 % (13.2-15.2) 11/26/18 04:15 Plt Count 507 K/mm3 (140-440) H 11/26/18 04:15 Lymph % (Auto) [employer] 11/26/18 04:15 Harper % (Auto) [employer] 11/26/18 04:15 Eos % (Auto) [employer] 11/26/18 04:15 Baso % (Auto) [employer] 11/26/18 04:15 Lymph # [employer] 11/26/18 04:15 Harper # [employer] 11/26/18 04:15 Eos # [employer] 11/26/18 04:15 Baso # [employer] 11/26/18 04:15 Add Manual Diff Complete 11/26/18 04:15 Total Counted 100 11/26/18 04:15 Seg Neutrophils % [employer] 11/26/18 04:15 Seg Neuts % (Manual) 73.0 % (40.0-70.0) H 11/26/18 04:15 0 % 11/26/18 04:15 19.0 % (13.4-35.0) 11/26/18 04:15 Reactive Lymphs % (Man) 0 % 11/26/18 04:15 8.0 % (0.0-7.3) H 11/26/18 04:15 0 % (0.0-4.3) 11/26/18 04:15 0 % (0.0-1.8) 11/26/18 04:15 0 % 11/26/18 04:15 0 % 11/26/18 04:15 0 % 11/26/18 04:15 0 % 11/26/18 04:15 Nucleated RBC % Not Reportable 11/26/18 04:15 Seg Neutrophils # [employer] 11/26/18 04:15 Seg Neutrophils # Man 10.8 K/mm3 (1.8-7.7) H 11/26/18 04:15 Band Neutrophils # 0.0 K/mm3 11/26/18 04:15 2.8 K/mm3 (1.2-5.4) 11/26/18 04:15 Abs React Lymphs (Man) 0.0 K/mm3 11/26/18 04:15 1.2 K/mm3 (0.0-0.8) H 11/26/18 04:15 0.0 K/mm3 (0.0-0.4) 11/26/18 04:15 0.0 K/mm3 (0.0-0.1) 11/26/18 04:15 0.0 K/mm3 11/26/18 04:15 0.0 K/mm3 11/26/18 04:15 0.0 K/mm3 11/26/18 04:15 Blast Cells # 0.0 K/mm3 11/26/18 04:15 WBC Morphology Not Reportable 11/26/18 04:15 Hypersegmented Neuts Not Reportable 11/26/18 04:15 Hyposegmented Neuts Not Reportable 11/26/18 04:15 Hypogranular Neuts Not Reportable 11/26/18 04:15 Not Reportable 11/26/18 04:15 Not Reportable 11/26/18 04:15 Not Reportable 11/26/18 04:15 Not Reportable 11/26/18 04:15 Not Reportable 11/26/18 04:15 Not Reportable 11/26/18 04:15 Consistent w auto 11/26/18 04:15 Not Reportable 11/26/18 04:15 Plt Clumps, EDTA Not Reportable 11/26/18 04:15 Not Reportable 11/26/18 04:15 Not Reportable 11/26/18 04:15 Not Reportable 11/26/18 04:15 Plt Morphology Comment Not Reportable 11/26/18 04:15 RBC Morphology Not Reportable 11/26/18 04:15 Dimorphic RBCs Not Reportable 11/26/18 04:15 Not Reportable 11/26/18 04:15 1+ 11/26/18 04:15 Rare 11/26/18 04:15 1+ 11/26/18 04:15 Not Reportable 11/26/18 04:15 Not Reportable 11/26/18 04:15 Not Reportable 11/26/18 04:15 Not Reportable 11/26/18 04:15 Not Reportable 11/26/18 04:15 Not Reportable 11/26/18 04:15 Not Reportable 11/26/18 04:15 Not Reportable 11/26/18 04:15 Not Reportable 11/26/18 04:15 Not Reportable 11/26/18 04:15 Not Reportable 11/26/18 04:15 Not Reportable 11/26/18 04:15 Not Reportable 11/26/18 04:15 Not Reportable 11/26/18 04:15 Not Reportable 11/26/18 04:15 Acanthocytes (Spur) Not Reportable 11/26/18 04:15 Rouleaux Not Reportable 11/26/18 04:15 Not Reportable 11/26/18 04:15 Not Reportable 11/26/18 04:15 Not Reportable 11/26/18 04:15 Not Reportable 11/26/18 04:15 Hem Pathologist Commnt No 11/26/18 04:15 Sodium 137 mmol/L (137-145) 11/26/18 04:15 Potassium 4.1 mmol/L (3.6-5.0) 11/26/18 04:15 Chloride 99.6 mmol/L (98-107) 11/26/18 04:15 Carbon Dioxide 23 mmol/L (22-30) 11/26/18 04:15 19 mmol/L 11/26/18 04:15 BUN 6 mg/dL (7-17) L 11/26/18 04:15 0.4 mg/dL (0.7-1.2) L 11/26/18 04:15 Estimated GFR > 60 ml/min 11/26/18 04:15 15 % 11/26/18 04:15 Glucose 340 mg/dL (65-100) H 11/26/18 04:15 POC Glucose 299 (70-105) H 11/26/18 16:28 Lactic Acid 2.40 mmol/L (0.7-2.0) H* 11/25/18 16:05 Calcium 9.1 mg/dL (8.4-10.2) 11/26/18 04:15 0.50 mg/dL (0.1-1.2) 11/25/18 15:22 AST 28 units/L (5-40) 11/25/18 15:22 ALT 27 units/L (7-56) 11/25/18 15:22 236 units/L (35-129) H 11/25/18 15:22 7.5 g/dL (6.3-8.2) 11/25/18 15:22 3.2 g/dL (3.9-5) L 11/25/18 15:22 0.7 % 11/25/18 15:22 Active Medications - Current Medications Current Medications: Generic Name Dose Route Start Last Admin Trade Name Freq PRN Reason Stop Dose Admin Acetaminophen 650 mg 11/26/18 00:14 Tylenol PO Q4H PRN Pain MILD(1-3)/Fever >100.5/TANG Acetaminophen/Hydrocodone Bitart 1 each 11/26/18 15:00 Irving 5/325 PO Q4H PRN Pain, Moderate (4-6) Cholecalciferol 1,000,000 unit 11/27/18 10:00 Vitamin D3 PO QDAY [facility]IOLETA Dextrose 50 ml 11/26/18 00:15 D50w (25gm) Syringe IV PRN PRN Hypoglycemia Dextrose 50 ml 11/26/18 17:17 D50w (25gm) Syringe IV PRN PRN Hypoglycemia Enoxaparin Sodium 40 mg 11/26/18 10:00 11/26/18 10:45 Lovenox SUB-Q 40 mg QDAY@1000 VIOLETA Administration Fentanyl 50 mcg 11/26/18 11:17 Sublimaze IV 11/26/18 23:00 Q5MIN PRN Pain , Severe (7-10) Hydrocortisone Acetate 10 mg 11/26/18 22:00 Cortef PO BID VIOLETA Hydromorphone HCl 0.5 mg 11/26/18 11:17 11/26/18 15:13 Dilaudid IV 11/26/18 23:00 0.5 mg Q10MIN PRN Administration Pain , Severe (7-10) Vancomycin HCl 1,500 mg/ 530 mls @ 333.333 mls/hr 11/26/18 06:00 11/26/18 06:10 Sodium Chloride IV 333.333 mls/hr Q12H [facility]IOLETA Administration Sodium Chloride 1,000 mls @ 100 mls/hr 11/25/18 22:00 11/26/18 11:35 Nacl 0.9% 1000 Ml IV 100 mls/hr DIRECT VIOLETA Administration Piperacillin Sod/Tazobactam Sod 4.5 gm in 100 mls @ 200 mls/hr 11/25/18 22:00 11/26/18 15:40 Zosyn/Ns 4.5gm/100ml IV Not Given Q8HR [facility] Protocol Insulin Human Lispro 0 unit 11/26/18 18:00 Humalog SUB-Q Q6HR [facility] Protocol Lamotrigine 25 mg 11/26/18 22:00 Lamictal PO BID [facility] Levothyroxine Sodium 50 mcg 11/27/18 10:00 Synthroid PO QAM [facility] Metoprolol Tartrate 50 mg 11/26/18 22:00 Lopressor PO BID [facility] Midazolam HCl 2 mg 11/26/18 12:00 Versed IV 11/26/18 23:59 PREOP NR Miscellaneous Medication 60 unit 11/26/18 22:00 Insulin Glargine,Hum.Rec.Anlog [Lantus Solostar] SQ QHS [facility] Miscellaneous Medication 20 mg 11/26/18 22:00 Lasix Tab PO BID [facility] Miscellaneous Medication 0.1 inch 11/26/18 22:00 Mometasone 0.1% (Nf) TP BID [facility] Miscellaneous Medication 150 mg 11/26/18 22:00 Pregabalin [Lyrica] PO BID [facility] Morphine Sulfate 2 mg 11/26/18 15:00 Morphine IV Q4H PRN Pain , Severe (7-10) Ondansetron HCl 4 mg 11/26/18 00:14 Zofran IV Q4H PRN Nausea And Vomiting Ondansetron HCl 4 mg 11/26/18 11:17 Zofran IV ONCE PRN Nausea And Vomiting Sodium Chloride 10 ml 11/26/18 10:00 11/26/18 10:53 Sodium Chloride Flush Syringe 10 Ml IV 10 ml BID [facility] Administration Sodium Chloride 10 ml 11/26/18 00:14 Sodium Chloride Flush Syringe 10 Ml IV PRN PRN LINE FLUSH
[2018-11-26] MEDS: HumaLOG SUB-Q SCH (18:38)
[2018-11-26] MEDS: LASIX PO SCH (18:39)
[2018-11-26] MEDS: LYRICA PO SCH (21:22)
[2018-11-26] MEDS: LaMICtal PO SCH (21:22)
[2018-11-26] MEDS: LOPRESSOR PO SCH (21:22)
[2018-11-26] MEDS: CORTEF PO SCH (21:22)
[2018-11-26] MEDS: TYLENOL PO PRN (21:59)
[2018-11-26] MEDS ORDERED: MOMETASONE 0.1% TP SCH (22:00)
[2018-11-26] MEDS ORDERED: LANTUS SUB-Q SCH (22:00)
[2018-11-26] MEDS ORDERED: INSULIN GLARGINE HUM REC ANLOG 60 UNIT SQ SCH (22:00)
[2018-11-26] MEDS ORDERED: NON-FORMULARY (Lasix Tab 20 MG) PO SCH (22:00)
[2018-11-26] MEDS ORDERED: NON-FORMULARY (Pregabalin [Lyrica] 150 MG) PO SCH (22:00)
[2018-11-27] MEDS: HumaLOG SUB-Q SCH ×5 (00:41→22:37)
[2018-11-27] MEDS: LASIX PO SCH ×2 (05:16→18:56)
[2018-11-27] MEDS: ZOSYN/NS 4.5GM/100ML 4.5 GM/100 ML VIAL IV SCH ×3 (05:16→22:27)
[2018-11-27] MEDS: VANCOMYCIN 1,500 MG in NACL 0.9% 500 ML 500 ML IV SCH ×2 (05:16→18:56)
--- NOTE | 2018-11-27 08:44 | Cat Scan Report ---
CT HEAD WITHOUT CONTRAST INDICATION : Altered mental status. TECHNIQUE: Axial imaging performed from the skull apex through the skull base without the use of con trast. Sagittal and coronal reformatted images. All CT scans at this location are performed using C T dose reduction for ALARA by means of automated exposure control. COMPARISON: None FINDINGS: Parenchyma: There is moderate bifrontal encephalomalacia, left greater than right. This appears to b e secondary to postsurgical changes. There is suggestion of a slightly hyperdense left parafalcine ma ss measuring 4.8 x 1.1 x 3.0 cm. This may represent residual meningioma. Please correlate with the pa tahira's history. A chronic focal infarct in the medial right occipital lobe measures 3.6 x 1.7 cm in axial plane. The remaining brain parenchyma is within normal limits. No evidence for acute hemorrhage or large acute infarct. Ventricles: There is mild compensatory enlargement of the frontal horns. Normal ventricular size ove rall. Bones: Bilateral frontal craniotomy changes. Sinuses: Sinuses and mastoid air cells are clear. Soft tissues: Soft tissues including the orbits appear normal. IMPRESSION: No acute intracranial process is identified. Moderate bifrontal encephalomalacia is ident ified which is probably secondary to surgery. There is also suggestion of a left parafalcine extra-ax ial mass which probably represents a meningioma. 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 Signer Name: Ifeanyi Galvan Jr, MD Signed: 11/27/2018 8:39 AM Workstation Name: [id number]
[2018-11-27] MEDS: LOPRESSOR PO SCH ×2 (10:47→22:50)
[2018-11-27] MEDS: CORTEF PO SCH ×2 (10:47→22:29)
[2018-11-27] MEDS: SYNTHROID PO SCH (10:48)
[2018-11-27] MEDS: LOVENOX SUB-Q SCH (10:49)
[2018-11-27] MEDS: LaMICtal PO SCH ×2 (10:49→22:29)
[2018-11-27] MEDS: VITAMIN D3 PO SCH (10:49)
[2018-11-27] MEDS: LYRICA PO SCH ×2 (10:50→22:29)
[2018-11-27] MEDS: SODIUM CHLORIDE FLUSH SYRINGE 10 ML IV SCH ×2 (10:51→22:28)
[2018-11-27] MEDS: NORCO 5/325 PO PRN (11:43)
--- NOTE | 2018-11-27 11:46 | Progress Note ---
Assessment and Plan Cultures: 11/25/18 BCx - NGTD 11/25/18 Wound CX: light growth of skin otoniel A/P: Ms. Estrada is a 53-year-old female with a past medical history of hypertension, diabetes, history of being bedbound presents with sepsis secondary to abdominal wall abscess 1. Sepsis secondary to abdominal wall abscess - Improved. no fevers. now s/p debridement with significant abscess formation seen and tunneling deep. 2 foreign metallic objects found. Cultures taken per surgery and are pending. Appreciate their help in this case. Will continue vanc and pip-tazo for now pending culture results and hopefully we can de-escalate. Dressing change at bedside tomorrow with possible placement of wound vac. Dr. West following. 2. HTN 3. DM2 Recs: Continue pip-tazo 4.5g q8h continue vancomycin vanc trough after 4th dose. [facility] M: [phone] O:[phone] Subjective Date of service: 11/27/18 Interval history: Patient sen and examined. Laying in bed, reports no acute distress or abdominal pain. +mild tenderness on exam. low grade fever. Objective - Exam Narrative Exam: Constitutional: awake, no distress, following commands Head, Ears, Nose: Normocephalic, atraumatic. External ears, nose normal Eyes: Conjunctivae/corneas clear. No icterus. No ptosis. Neck: Supple, no meningeal signs Oral: fair dentition, moist mucous membranes Cardiovascular: S1, S2 normal. Normal rhythm Respiratory: Good air entry, clear to auscultation bilaterally GI: tender due to surgery. minimal serosanguinous drainage on dressing. No drains. Musculoskeletal: No pedal edema, Skin: No rash or abscess Hem/Lymphatic: No palpable cervical or supraclavicular nodes. No lymphangitis Psych: no agitation Neurological: Moves all extremities, no focal defects - Constitutional Vitals: Vital Signs Temp Pulse Resp BP Pulse Ox 98.0 F 98 H 18 104/54 98 11/27/18 07:42 11/27/18 07:43 11/27/18 07:42 11/27/18 07:42 11/27/18 09:29 Temperature -Last 24 Hours Temperature 98.0 F Temperature 98.0 F Temperature 100.6 F Temperature 100.4 F Temperature 98.6 F Temperature 98.1 F Temperature 97.7 F - Labs CBC & Chem 7: 11/26/18 04:15 11/26/18 04:15 Labs: Abnormal lab results 11/26/18 11/26/18 11/26/18 Range/Units 12:41 13:29 14:57 POC Glucose 325 H 301 H 313 H (70-105) 11/26/18 11/26/18 11/27/18 Range/Units 15:38 16:28 00:11 POC Glucose 291 H 299 H 347 H (70-105)
--- NOTE | 2018-11-27 12:38 | Progress Note ---
Assessment and Plan 53 yo F s/p incision and drainage of abdominal wall abscess and debridement of wound, POD 1 Plan: 1. continue current diet, NPO p MN for possible OR tomorrow for dressing change 2. IVF - maintenance when NPO 3. IV abx per ID 4. follow up wound cultures 5. prn pain control 6. Will attempt dressing change at bedside tomorrow with duct layer supervisor and assess for placement of wound vac. If patient does not tolerate bedside dressing change, she will be added on to OR schedule for dressing change and possible wound vac placement Plan discussed with patient and patient's daughter at the bedside Thank you, please call with questions. Subjective Date of service: 11/27/18 Narrative: Pt seen and examined. c/o pain at surgical site. Tm 100.6. Objective Vital Signs - 12hr 11/27/18 11/27/18 11/27/18 04:17 07:42 07:43 Temperature 98.0 F 98.0 F Pulse Rate 91 H 98 H 98 H Respiratory 24 18 Rate Blood Pressure 116/64 104/54 O2 Sat by Pulse 96 99 98 Oximetry 11/27/18 09:29 Temperature Pulse Rate Respiratory Rate Blood Pressure O2 Sat by Pulse 98 Oximetry - General physical appearance Narrative Exam: Gen: AAOx3. NAD CV: s1, S2+ resp; even and unlabored Abd: soft, mild TTP over surgical site. Dressing c/d/i Ext: no c/c/e - Labs 11/26/18 04:15 11/26/18 04:15
[2018-11-27] MEDS: NACL 0.45% 1000 ML 1,000 ML IV SCH (15:55)
--- NOTE | 2018-11-27 16:26 | Progress Note ---
Assessment and Plan Assessment and plan: Patient is a 53-year-old female with a past medical history of hypertension, diabetes, seizures, meningioma, sarcoidosis, hypothyroidism, hyperlipidemia, sleep apnea, duodenal ulcer, morbid obesity, history of being bedbound who initially presented with abdominal pain and drainage and was noted ot have area of indurating with inflammation and ill-defined fluid and gas bubbles. On Evaluation of PEG tube site it was noted to have induration Febrile during admission to 100.9 with a leukocytosis of 15. Blood cultures from 11/25 are currently pending. She is currently receiving vancomycin and pip- tazo. Chest x-ray with mild fluid overload. Abdominal CT with fluids/gas bubble in the abdominal wall. She has been evaluated by general surgery and was taken for drainage in the OR. Copious pus noted with tunnelling abscess. s/p OR drainage 11/26/18 Large abdominal wall abscess with cavity tunnelling towards the right lower abdomen for about 12 inches. Large amount of purulent fluid. Abscess cavity extends to fascia. Two small metallic foreign objects found in abscess cavity likely related to old PEG tube CT A/P IMPRESSION: 1. Area of induration with inflammation and ill-defined fluid and gas bubbles in the anterior abdominal wall with the epicenter in the left upper quadrant possibly related to previous gastrostomy tube. No discrete drainable fluid collection at this time CT head: IMPRESSION: No acute intracranial process is identified. Moderate bifrontal encephalomalacia is identified which is probably secondary to surgery. There is also suggestion of a left parafalcine extra-axial mass which probably represents a meningioma. 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 Sepsis secondary to Abdominal abscess- POD 1 OR drainage hypertension Diabetes Mellitus With hyperglycmia Chronic Focal infarct in the right occipital lobe Seizures meningioma Sarcoidosis hypothyroidism hyperlipidemia Sleep apnea Duodenal ulcer morbid obesity Acute Encephalopathy- worsening per daughter. Plan Supportive care ID input noted Continue IV fluid, IV Zosyn, vancomycin Follow up wound cultures Adjust Insulin dose, patient also on Hydrocortizone making BG management difficult CT head per daughters request due to changing mental status, Daughter understands that we do not have Neurosurgery. Out Patient Neurosurgery follow up considering probably reoccurrance of mengioma in the setting of some mental status changes intermittently Insulin FOR BETTER CONTROL OF BG. Follow cultures Continue appropriate outpatient medications DVT prophylaxis History Interval history: Patient is seen and examined today, no new complaints. underwent drainage of abscess yesterday. Hospitalist Physical - Physical exam Narrative exam: General Apperance: The patient sitting in bed no acute distress HEENT: Normocephalic, atraumatic. Pupils equally round and reactive to light, extraocular movement intact, and no sclericterus or JVD or thyromegaly or nodule. Neck supple, no carotid bruit, mucous membranes moist, no exudate or erythema Heart: S1-S2, regular is rhythm Lungs: Clear to auscultation bilaterally, breathing comfortable Abdomen: Positive bowel sounds, soft, tender in LUQ, + erythema, dressing in place PEG tube site, non distended, no organomegaly Extremities: trace edema, no cyanosis clubbing Skin: no rash, nodule, warm and dry Neuro:CN 2 -12 intact,speech is fluent - Constitutional Vitals: Temp Pulse Resp BP Pulse Ox 98.0 F 98 H 18 104/54 98 11/27/18 07:42 11/27/18 07:43 11/27/18 07:42 11/27/18 07:42 11/27/18 09:29 Results - Labs CBC & Chem 7: 11/26/18 04:15 11/26/18 04:15 Labs: Laboratory Last Values WBC 14.8 K/mm3 (4.5-11.0) H 11/26/18 04:15 RBC 4.86 M/mm3 (3.65-5.03) 11/26/18 04:15 Hgb 11.1 gm/dl (10.1-14.3) 11/26/18 04:15 Hct 35.2 % (30.3-42.9) 11/26/18 04:15 MCV 72 fl (79-97) L 11/26/18 04:15 MCH 23 pg (28-32) L 11/26/18 04:15 MCHC 32 % (30-34) 11/26/18 04:15 RDW 14.4 % (13.2-15.2) 11/26/18 04:15 Plt Count 507 K/mm3 (140-440) H 11/26/18 04:15 Lymph % (Auto) Can Tester 11/26/18 04:15 Marshall % (Auto) Can Tester 11/26/18 04:15 Eos % (Auto) Can Tester 11/26/18 04:15 Baso % (Auto) Can Tester 11/26/18 04:15 Lymph # Can Tester 11/26/18 04:15 Marshall # Can Tester 11/26/18 04:15 Eos # Can Tester 11/26/18 04:15 Baso # Can Tester 11/26/18 04:15 Add Manual Diff Complete 11/26/18 04:15 Total Counted 100 11/26/18 04:15 Seg Neutrophils % Can Tester 11/26/18 04:15 Seg Neuts % (Manual) 73.0 % (40.0-70.0) H 11/26/18 04:15 0 % 11/26/18 04:15 19.0 % (13.4-35.0) 11/26/18 04:15 Reactive Lymphs % (Man) 0 % 11/26/18 04:15 8.0 % (0.0-7.3) H 11/26/18 04:15 0 % (0.0-4.3) 11/26/18 04:15 0 % (0.0-1.8) 11/26/18 04:15 0 % 11/26/18 04:15 0 % 11/26/18 04:15 0 % 11/26/18 04:15 0 % 11/26/18 04:15 Nucleated RBC % Not Reportable 11/26/18 04:15 Seg Neutrophils # Can Tester 11/26/18 04:15 Seg Neutrophils # Man 10.8 K/mm3 (1.8-7.7) H 11/26/18 04:15 Band Neutrophils # 0.0 K/mm3 11/26/18 04:15 2.8 K/mm3 (1.2-5.4) 11/26/18 04:15 Abs React Lymphs (Man) 0.0 K/mm3 11/26/18 04:15 1.2 K/mm3 (0.0-0.8) H 11/26/18 04:15 0.0 K/mm3 (0.0-0.4) 11/26/18 04:15 0.0 K/mm3 (0.0-0.1) 11/26/18 04:15 0.0 K/mm3 11/26/18 04:15 0.0 K/mm3 11/26/18 04:15 0.0 K/mm3 11/26/18 04:15 Blast Cells # 0.0 K/mm3 11/26/18 04:15 WBC Morphology Not Reportable 11/26/18 04:15 Hypersegmented Neuts Not Reportable 11/26/18 04:15 Hyposegmented Neuts Not Reportable 11/26/18 04:15 Hypogranular Neuts Not Reportable 11/26/18 04:15 Not Reportable 11/26/18 04:15 Not Reportable 11/26/18 04:15 Not Reportable 11/26/18 04:15 Not Reportable 11/26/18 04:15 Not Reportable 11/26/18 04:15 Not Reportable 11/26/18 04:15 Consistent w auto 11/26/18 04:15 Not Reportable 11/26/18 04:15 Plt Clumps, EDTA Not Reportable 11/26/18 04:15 Not Reportable 11/26/18 04:15 Not Reportable 11/26/18 04:15 Not Reportable 11/26/18 04:15 Plt Morphology Comment Not Reportable 11/26/18 04:15 RBC Morphology Not Reportable 11/26/18 04:15 Dimorphic RBCs Not Reportable 11/26/18 04:15 Not Reportable 11/26/18 04:15 1+ 11/26/18 04:15 Rare 11/26/18 04:15 1+ 11/26/18 04:15 Not Reportable 11/26/18 04:15 Not Reportable 11/26/18 04:15 Not Reportable 11/26/18 04:15 Not Reportable 11/26/18 04:15 Not Reportable 11/26/18 04:15 Not Reportable 11/26/18 04:15 Not Reportable 11/26/18 04:15 Not Reportable 11/26/18 04:15 Not Reportable 11/26/18 04:15 Not Reportable 11/26/18 04:15 Not Reportable 11/26/18 04:15 Not Reportable 11/26/18 04:15 Not Reportable 11/26/18 04:15 Not Reportable 11/26/18 04:15 Not Reportable 11/26/18 04:15 Acanthocytes (Spur) Not Reportable 11/26/18 04:15 Rouleaux Not Reportable 11/26/18 04:15 Not Reportable 11/26/18 04:15 Not Reportable 11/26/18 04:15 Not Reportable 11/26/18 04:15 Not Reportable 11/26/18 04:15 Hem Pathologist Commnt No 11/26/18 04:15 Sodium 137 mmol/L (137-145) 11/26/18 04:15 Potassium 4.1 mmol/L (3.6-5.0) 11/26/18 04:15 Chloride 99.6 mmol/L (98-107) 11/26/18 04:15 Carbon Dioxide 23 mmol/L (22-30) 11/26/18 04:15 19 mmol/L 11/26/18 04:15 BUN 6 mg/dL (7-17) L 11/26/18 04:15 0.4 mg/dL (0.7-1.2) L 11/26/18 04:15 Estimated GFR > 60 ml/min 11/26/18 04:15 15 % 11/26/18 04:15 Glucose 340 mg/dL (65-100) H 11/26/18 04:15 POC Glucose 304 (70-105) H 11/27/18 12:54 Lactic Acid 2.40 mmol/L (0.7-2.0) H* 11/25/18 16:05 Calcium 9.1 mg/dL (8.4-10.2) 11/26/18 04:15 0.50 mg/dL (0.1-1.2) 11/25/18 15:22 AST 28 units/L (5-40) 11/25/18 15:22 ALT 27 units/L (7-56) 11/25/18 15:22 236 units/L (35-129) H 11/25/18 15:22 7.5 g/dL (6.3-8.2) 11/25/18 15:22 3.2 g/dL (3.9-5) L 11/25/18 15:22 0.7 % 11/25/18 15:22 Active Medications - Current Medications Current Medications: Generic Name Dose Route Start Last Admin Trade Name Freq PRN Reason Stop Dose Admin Acetaminophen 650 mg 11/26/18 00:14 11/26/18 21:59 Tylenol PO 650 mg Q4H PRN Administration Pain MILD(1-3)/Fever >100.5/TANG Acetaminophen/Hydrocodone Bitart 1 each 11/26/18 15:00 11/27/18 11:43 [place] 5/325 PO 1 each Q4H PRN Administration Pain, Moderate (4-6) Cholecalciferol 1,000 unit 11/27/18 10:00 11/27/18 10:49 Vitamin D3 PO 1,000 unit QDAY VIOLETA Administration Dextrose 50 ml 11/26/18 17:17 D50w (25gm) Syringe IV PRN PRN Hypoglycemia Enoxaparin Sodium 40 mg 11/26/18 10:00 11/27/18 10:49 Lovenox SUB-Q 40 mg QDAY@1000 VIOLETA Administration Furosemide 20 mg 11/26/18 18:00 11/27/18 05:16 Lasix PO 20 mg 0600,1800 VIOLETA Administration Hydrocortisone Acetate 10 mg 11/26/18 22:00 11/27/18 10:47 Cortef PO 10 mg BID VIOLETA Administration Vancomycin HCl 1,500 mg/ 530 mls @ 333.333 mls/hr 11/26/18 06:00 11/27/18 05:16 Sodium Chloride IV 333.333 mls/hr Q12H VIOLETA Administration Piperacillin Sod/Tazobactam Sod 4.5 gm in 100 mls @ 200 mls/hr 11/25/18 22:00 11/27/18 12:59 Zosyn/Ns 4.5gm/100ml IV 200 mls/hr Q8HR VIOLETA Administration Protocol Sodium Chloride 1,000 mls @ 75 mls/hr 11/27/18 13:00 11/27/18 15:55 Nacl 0.45% 1000 Ml IV 75 mls/hr DIRECT VIOLETA Administration Insulin Human Lispro 0 unit 11/26/18 18:00 11/27/18 12:59 Humalog SUB-Q 6 unit Q6HR VIOLETA Administration Protocol Lamotrigine 25 mg 11/26/18 22:00 11/27/18 10:49 Lamictal PO 25 mg BID VIOLETA Administration Levothyroxine Sodium 50 mcg 11/27/18 10:00 11/27/18 10:48 Synthroid PO 50 mcg QAM VIOLETA Administration Metoprolol Tartrate 50 mg 11/26/18 22:00 11/27/18 10:47 Lopressor PO 50 mg BID VIOLETA Administration Miscellaneous Medication 0.1 inch 11/26/18 22:00 Mometasone 0.1% (Nf) TP BID VIOLETA Morphine Sulfate 2 mg 11/26/18 15:00 Morphine IV Q4H PRN Pain , Severe (7-10) Ondansetron HCl 4 mg 11/26/18 00:14 Zofran IV Q4H PRN Nausea And Vomiting Pregabalin 150 mg 11/26/18 22:00 11/27/18 10:50 Lyrica PO 150 mg BID VIOLETA Administration Sodium Chloride 10 ml 11/26/18 10:00 11/27/18 10:51 Sodium Chloride Flush Syringe 10 Ml IV 10 ml BID VIOLETA Administration Sodium Chloride 10 ml 11/26/18 00:14 Sodium Chloride Flush Syringe 10 Ml IV PRN PRN LINE FLUSH
[2018-11-27] MEDS: LANTUS SUB-Q SCH (22:30)
[2018-11-28] MEDS: HumaLOG SUB-Q SCH ×4 (00:06→17:43)
[2018-11-28] MEDS: TYLENOL PO PRN (00:08)
[2018-11-28 02:18] LABS: Hematocrit 31.3 % (30.3-42.9); Hemoglobin 9.7 gm/dl (10.1-14.3); Mean Corpuscular HGB Conc 31 % (30-34); Mean Corpuscular Volume 74 fl (79-97); Platelet Count 634 K/mm3 (140-440); Red Blood Count 4.23 M/mm3 (3.65-5.03); Red Cell Distribution Width 14.9 % (13.2-15.2)
[2018-11-28 03:58] LABS: Basophils % (Manual) 0 % (0.0-1.8); Myelocytes # (Manual) 0.3 K/mm3; Total Cells Counted 100
[2018-11-28 03:59] LABS: Anisocytosis 1+; Hypochromasia 1+; Large Platelets 1+; Platelet Estimate Appears Increased
[2018-11-28 05:20] LABS: Calcium 8.8 mg/dL (8.4-10.2)
[2018-11-28] MEDS: VANCOMYCIN 1,500 MG in NACL 0.9% 500 ML 500 ML IV SCH (05:23)
[2018-11-28] MEDS: LASIX PO SCH ×2 (05:25→18:08)
[2018-11-28] MEDS: ZOSYN/NS 4.5GM/100ML 4.5 GM/100 ML VIAL IV SCH ×2 (07:00→18:50)
--- NOTE | 2018-11-28 09:46 | Event Note ---
Date: 11/28/18 Pt chart reviewed and Tm 102.4. Likely related to abdominal wall wound. Will take patient to OR to better evaluate wound, washout wound, and possibly place wound vac. Pt NPO on IVF. On IV abx.
--- NOTE | 2018-11-28 10:09 | Progress Note ---
Assessment and Plan Cultures: 11/25/18 BCx - NGTD 11/25/18 Wound CX: light growth of skin otoniel 11/26/18 Surgical CX: light growth of skin otoniel A/P: Ms. Estrada is a 53-year-old female with a past medical history of hypertension, diabetes, history of being bedbound presents with sepsis secondary to abdominal wall abscess 1. Sepsis secondary to abdominal wall abscess - Improved. no fevers. now s/p debridement with significant abscess formation seen and tunneling deep. 2 foreign metallic objects found. Cultures taken per surgery and are pending. Appreciate their help in this case. Will continue vanc and pip-tazo for now pending culture results and hopefully we can de-escalate. Incision and drainage, washout abdominal wall abscess with wound vac placement today in the OR - Dr. West following. 2. HTN 3. DM2 4. New Fever- fever spike noted 102.4. likely reactive from wound. Going for washout and wound Vac. Jenna Stone following 5.JOEL- antibiotics renally adjusted. Discontinued vancomycin. Start daptomycin. Recs: Continue pip-tazo 4.5g q8h Discontinue Vancomycin Start Daptomycin 6mg/kg every 24 hours [facility] M: [phone] O:[phone] Subjective Date of service: 11/28/18 Objective - Constitutional Vitals: Vital Signs Temp Pulse Resp BP Pulse Ox 98 F 97 H 16 139/68 99 11/28/18 07:00 11/28/18 07:57 11/28/18 07:00 11/28/18 07:00 11/28/18 07:57 Temperature -Last 24 Hours Temperature 98 F Temperature 99.0 F Temperature 102.4 F Temperature 98.3 F - Labs CBC & Chem 7: 11/28/18 01:40 11/28/18 04:53 Labs: Abnormal lab results 11/27/18 11/27/18 11/27/18 Range/Units 12:54 17:12 21:31 WBC (4.5-11.0) K/mm3 Hgb (10.1-14.3) gm/dl MCV (79-97) fl MCH (28-32) pg Plt Count (140-440) K/mm3 Seg Neuts % (Manual) (40.0-70.0) % Lymphocytes % (Manual) (13.4-35.0) % Seg Neutrophils # Man (1.8-7.7) K/mm3 Lymphocytes # (Manual) (1.2-5.4) K/mm3 Carbon Dioxide (22-30) mmol/L Creatinine (0.7-1.2) mg/dL Glucose (65-100) mg/dL POC Glucose 304 H 319 H 323 H (70-105) Vancomycin Trough (5.0-20.0) ug/mL 11/28/18 11/28/18 11/28/18 Range/Units 01:40 04:53 04:53 WBC 11.5 H (4.5-11.0) K/mm3 Hgb 9.7 L (10.1-14.3) gm/dl MCV 74 L (79-97) fl MCH 23 L (28-32) pg Plt Count 634 H (140-440) K/mm3 Seg Neuts % (Manual) 85.0 H (40.0-70.0) % Lymphocytes % (Manual) 1.0 L (13.4-35.0) % Seg Neutrophils # Man 9.8 H (1.8-7.7) K/mm3 Lymphocytes # (Manual) 0.1 L (1.2-5.4) K/mm3 Carbon Dioxide 20 L (22-30) mmol/L Creatinine 1.6 H D (0.7-1.2) mg/dL Glucose 249 H (65-100) mg/dL POC Glucose (70-105) Vancomycin Trough 25.2 H (5.0-20.0) ug/mL 11/28/18 Range/Units 06:19 WBC (4.5-11.0) K/mm3 Hgb (10.1-14.3) gm/dl MCV (79-97) fl MCH (28-32) pg Plt Count (140-440) K/mm3 Seg Neuts % (Manual) (40.0-70.0) % Lymphocytes % (Manual) (13.4-35.0) % Seg Neutrophils # Man (1.8-7.7) K/mm3 Lymphocytes # (Manual) (1.2-5.4) K/mm3 Carbon Dioxide (22-30) mmol/L Creatinine (0.7-1.2) mg/dL Glucose (65-100) mg/dL POC Glucose 236 H (70-105) Vancomycin Trough (5.0-20.0) ug/mL
[2018-11-28] MEDS: LOPRESSOR PO SCH (10:47)
[2018-11-28] MEDS: LOVENOX SUB-Q SCH (10:47)
[2018-11-28] MEDS: LaMICtal PO SCH ×2 (10:47→22:57)
[2018-11-28] MEDS: CORTEF PO SCH ×2 (10:47→22:57)
[2018-11-28] MEDS: SYNTHROID PO SCH (10:48)
[2018-11-28] MEDS: LYRICA PO SCH ×2 (10:48→22:57)
[2018-11-28] MEDS: SODIUM CHLORIDE FLUSH SYRINGE 10 ML IV SCH ×2 (10:48→23:05)
[2018-11-28] MEDS: VITAMIN D3 PO SCH (10:48)
[2018-11-28] MEDS: NACL 0.45% 1000 ML 1,000 ML IV SCH ×2 (11:15→23:06)
[2018-11-28] MEDS ORDERED: NACL 0.9% 1000 ML 1,000 ML IV ONE (11:54)
[2018-11-28] MEDS ORDERED: NACL 0.9% IV SCH (12:00)
[2018-11-28] MEDS ORDERED: DAPTOMYCIN IV SCH (12:00)
--- NOTE | 2018-11-28 12:10 | Anesthesia Consultation ---
Anesthesia Consult and Med Hx Date of service: 11/28/18 - Airway Anesthetic Teeth Evaluation: Poor ROM Head & Neck: Adequate Mental/Hyoid Distance: Adequate Mallampati Class: Class III Intubation Access Assessment: Probably Good - Pulmonary Exam CTA: Yes - Cardiac Exam Cardiac Exam: RRR - Pre-Operative Health Status ASA Pre-Surgery Classification: ASA4 Proposed Anesthetic Plan: MAC (Patient has fever of 103 , needs urgent I & D ) - Pulmonary Hx Smoking: Yes (past smoker stopped 30yrs ago) Hx Asthma: No COPD: No Hx Pneumonia: No Hx Sleep Apnea: Yes - Cardiovascular System Hx Hypertension: Yes Hx Coronary Artery Disease: No (ETT last year negative per pt) Hx Heart Attack/AMI: No Hx Angina: No Hx Percutaneous Transluminal Coronary Angioplasty (PTCA): No Hx Internal Defibrillator: No Hx Peripheral Vascular Disease: No - Central Nervous System Hx Seizures: Yes (Hx meningioma) CVA: No Hx Psychiatric Problems: No - Gastrointestinal Hx Ulcer: Yes (Hx PEG Tube) - Endocrine Hx Renal Disease: No Hx End Stage Renal Disease: No Hx Cirrhosis: No Hx Liver Disease: No Hx Insulin Dependent Diabetes: Yes Hx Thyroid Disease: Yes Hx Hypothyroidism: Yes Hx Hyperthyroidism: No - Hematic Hx Anemia: Yes - Other Systems Hx Alcohol Use: Yes (past in parties) Hx Substance Use: No Hx Cancer: No Hx Obesity: Yes
[2018-11-28] MEDS ORDERED: DILAUDID IV PRN (12:11)
[2018-11-28] MEDS ORDERED: ZOFRAN IV PRN (12:11)
--- NOTE | 2018-11-28 12:11 | Anesthesia Day of Surgery ---
Anesthesia Day of Surgery - Day of Surgery Patient Examined: Yes Patient H&P Reviewed: Yes Patient is NPO: Yes
[2018-11-28] MEDS ORDERED: VERSED ONE (14:29)
[2018-11-28] MEDS ORDERED: SUBLIMAZE ONE (14:29)
[2018-11-28] MEDS ORDERED: HYDROGEN PEROXIDE ONE (14:37)
[2018-11-28] MEDS ORDERED: XYLOCAINE 1% 20 mL ONE (15:06)
[2018-11-28] MEDS ORDERED: NACL 0.9% IR ONE ×2 (15:16→15:17)
[2018-11-28] MEDS ORDERED: XYLOCAINE 1% 20 mL INFILTRATI ONE (15:17)
--- NOTE | 2018-11-28 15:33 | Post Operative Note ---
Date of procedure: 11/28/18 Pre-op diagnosis: large abdominal wall abscess Post-op diagnosis: same Findings: Large amount of purulent drainage within large abscess cavity. Fascia and subcutaneous tissue healthy. Procedure: incision and drainage, washout abdominal wall abscess with wound vac placement Anesthesia: MAC, local Surgeon: NICA CHEEMA Estimated blood loss: minimal Pathology: none Condition: stable Disposition: PACU
--- NOTE | 2018-11-28 15:47 | Post Anesthesia Evaluation ---
- Post Anesthesia Evaluation Patient Participated: Yes Airway Patent: Yes Stable Respiratory Function: Yes Nausea/Vomiting: No Temp > 96.8F: Yes Pain Manageable: Yes Adequeate Hydration: Yes Anesthesia Complications: No Block Receding Appropriately: Not Applicable Patient on Ventilator: No
--- NOTE | 2018-11-28 16:02 | Progress Note ---
Assessment and Plan Assessment and plan: Patient is a 53-year-old female with a past medical history of hypertension, diabetes, seizures, meningioma, sarcoidosis, hypothyroidism, hyperlipidemia, sleep apnea, duodenal ulcer, morbid obesity, history of being bedbound who initially presented with abdominal pain and drainage and was noted ot have area of indurating with inflammation and ill-defined fluid and gas bubbles. On Evaluation of PEG tube site it was noted to have induration Febrile during admission to 100.9 with a leukocytosis of 15. Blood cultures from 11/25 are currently pending. She is currently receiving vancomycin and pip- tazo. Chest x-ray with mild fluid overload. Abdominal CT with fluids/gas bubble in the abdominal wall. She has been evaluated by general surgery and was taken for drainage in the OR. Copious pus noted with tunnelling abscess. s/p OR drainage 11/26/18 Large abdominal wall abscess with cavity tunnelling towards the right lower abdomen for about 12 inches. Large amount of purulent fluid. Abscess cavity extends to fascia. Two small metallic foreign objects found in abscess cavity likely related to old PEG tube CT A/P IMPRESSION: 1. Area of induration with inflammation and ill-defined fluid and gas bubbles in the anterior abdominal wall with the epicenter in the left upper quadrant possibly related to previous gastrostomy tube. No discrete drainable fluid collection at this time CT head: IMPRESSION: No acute intracranial process is identified. Moderate bifrontal encephalomalacia is identified which is probably secondary to surgery. There is also suggestion of a left parafalcine extra-axial mass which probably represents a meningioma. 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 Sepsis secondary to Abdominal abscess- POD 2 OR drainage JOEL secondary to vasomotor nephropathy hypertension Diabetes Mellitus With hyperglycmia Chronic Focal infarct in the right occipital lobe Seizures meningioma Sarcoidosis hypothyroidism hyperlipidemia Sleep apnea Duodenal ulcer morbid obesity Acute Encephalopathy- worsening per daughter. Plan Supportive care Back to OR today Repeat renal function ID input noted Continue IV fluid, Abx per ID. VANCOMYCIN HELD Follow up wound cultures Adjust Insulin dose, patient also on Hydrocortizone making BG management difficult CT head per daughters request due to changing mental status, Daughter understands that we do not have Neurosurgery. Out Patient Neurosurgery follow up considering probably reoccurrance of mengioma in the setting of some mental status changes intermittently Insulin FOR BETTER CONTROL OF BG. Follow cultures Continue appropriate outpatient medications DVT prophylaxis History Interval history: Patient is seen and examined today, no new complaints but nursing staff reported fever overnight and this morning underwent drainage of abscess 11/26/18 going back to OR today. Hospitalist Physical - Physical exam Narrative exam: General Apperance: The patient sitting in bed no acute distress HEENT: Normocephalic, atraumatic. Pupils equally round and reactive to light, extraocular movement intact, and no sclericterus or JVD or thyromegaly or nodule. Neck supple, no carotid bruit, mucous membranes moist, no exudate or erythema Heart: S1-S2, regular is rhythm Lungs: Clear to auscultation bilaterally, breathing comfortable Abdomen: Positive bowel sounds, soft, tender in LUQ, + erythema, dressing in place PEG tube site, non distended, no organomegaly Extremities: trace edema, no cyanosis clubbing Skin: no rash, nodule, warm and dry Neuro:CN 2 -12 intact,speech is fluent - Constitutional Vitals: Temp Pulse Resp BP Pulse Ox 110 F H 109 H 22 122/59 99 11/28/18 15:30 11/28/18 15:45 11/28/18 15:45 11/28/18 15:45 11/28/18 15:45 Results - Labs CBC & Chem 7: 11/28/18 01:40 11/28/18 04:53 Labs: Laboratory Last Values WBC 11.5 K/mm3 (4.5-11.0) H 11/28/18 01:40 RBC 4.23 M/mm3 (3.65-5.03) 11/28/18 01:40 Hgb 9.7 gm/dl (10.1-14.3) L 11/28/18 01:40 Hct 31.3 % (30.3-42.9) 11/28/18 01:40 MCV 74 fl (79-97) L 11/28/18 01:40 MCH 23 pg (28-32) L 11/28/18 01:40 MCHC 31 % (30-34) 11/28/18 01:40 RDW 14.9 % (13.2-15.2) 11/28/18 01:40 Plt Count 634 K/mm3 (140-440) H 11/28/18 01:40 Lymph % (Auto) Loop Drier Operator 11/26/18 04:15 [place] % (Auto) Loop Drier Operator 11/26/18 04:15 Eos % (Auto) Loop Drier Operator 11/26/18 04:15 Baso % (Auto) Loop Drier Operator 11/26/18 04:15 Lymph # Loop Drier Operator 11/26/18 04:15 [place] # Loop Drier Operator 11/26/18 04:15 Eos # Loop Drier Operator 11/26/18 04:15 Baso # Loop Drier Operator 11/26/18 04:15 Add Manual Diff Complete 11/28/18 01:40 Total Counted 100 11/28/18 01:40 Seg Neutrophils % Loop Drier Operator 11/26/18 04:15 Seg Neuts % (Manual) 85.0 % (40.0-70.0) H 11/28/18 01:40 0 % 11/28/18 01:40 1.0 % (13.4-35.0) L 11/28/18 01:40 Reactive Lymphs % (Man) 0 % 11/28/18 01:40 7.0 % (0.0-7.3) 11/28/18 01:40 2.0 % (0.0-4.3) 11/28/18 01:40 0 % (0.0-1.8) 11/28/18 01:40 2.0 % 11/28/18 01:40 3.0 % 11/28/18 01:40 0 % 11/28/18 01:40 0 % 11/28/18 01:40 Nucleated RBC % Not Reportable 11/28/18 01:40 Seg Neutrophils # Loop Drier Operator 11/26/18 04:15 Seg Neutrophils # Man 9.8 K/mm3 (1.8-7.7) H 11/28/18 01:40 Band Neutrophils # 0.0 K/mm3 11/28/18 01:40 0.1 K/mm3 (1.2-5.4) L 11/28/18 01:40 Abs React Lymphs (Man) 0.0 K/mm3 11/28/18 01:40 0.8 K/mm3 (0.0-0.8) 11/28/18 01:40 0.2 K/mm3 (0.0-0.4) 11/28/18 01:40 0.0 K/mm3 (0.0-0.1) 11/28/18 01:40 0.2 K/mm3 11/28/18 01:40 0.3 K/mm3 11/28/18 01:40 0.0 K/mm3 11/28/18 01:40 Blast Cells # 0.0 K/mm3 11/28/18 01:40 WBC Morphology Not Reportable 11/28/18 01:40 Hypersegmented Neuts Not Reportable 11/28/18 01:40 Hyposegmented Neuts Not Reportable 11/28/18 01:40 Hypogranular Neuts Not Reportable 11/28/18 01:40 Not Reportable 11/28/18 01:40 Not Reportable 11/28/18 01:40 Not Reportable 11/28/18 01:40 Not Reportable 11/28/18 01:40 Not Reportable 11/28/18 01:40 Not Reportable 11/28/18 01:40 Appears increased 11/28/18 01:40 Not Reportable 11/28/18 01:40 Plt Clumps, EDTA Not Reportable 11/28/18 01:40 1+ 11/28/18 01:40 Not Reportable 11/28/18 01:40 Not Reportable 11/28/18 01:40 Plt Morphology Comment Not Reportable 11/28/18 01:40 RBC Morphology Not Reportable 11/28/18 01:40 Dimorphic RBCs Not Reportable 11/28/18 01:40 Not Reportable 11/28/18 01:40 1+ 11/28/18 01:40 Not Reportable 11/28/18 01:40 1+ 11/28/18 01:40 Not Reportable 11/28/18 01:40 Not Reportable 11/28/18 01:40 Not Reportable 11/28/18 01:40 Not Reportable 11/28/18 01:40 Not Reportable 11/28/18 01:40 Not Reportable 11/28/18 01:40 Not Reportable 11/28/18 01:40 Not Reportable 11/28/18 01:40 Not Reportable 11/28/18 01:40 Not Reportable 11/28/18 01:40 Not Reportable 11/28/18 01:40 Not Reportable 11/28/18 01:40 Not Reportable 11/28/18 01:40 Not Reportable 11/28/18 01:40 Not Reportable 11/28/18 01:40 Acanthocytes (Spur) Not Reportable 11/28/18 01:40 Rouleaux Not Reportable 11/28/18 01:40 Not Reportable 11/28/18 01:40 Not Reportable 11/28/18 01:40 Not Reportable 11/28/18 01:40 Not Reportable 11/28/18 01:40 Hem Pathologist Commnt No 11/28/18 01:40 Sodium 139 mmol/L (137-145) 11/28/18 04:53 Potassium 3.7 mmol/L (3.6-5.0) 11/28/18 04:53 Chloride 106.1 mmol/L (98-107) 11/28/18 04:53 Carbon Dioxide 20 mmol/L (22-30) L 11/28/18 04:53 17 mmol/L 11/28/18 04:53 BUN 10 mg/dL (7-17) 11/28/18 04:53 1.6 mg/dL (0.7-1.2) H D 11/28/18 04:53 Estimated GFR 41 ml/min 11/28/18 04:53 6 % 11/28/18 04:53 Glucose 249 mg/dL (65-100) H 11/28/18 04:53 POC Glucose 194 (70-105) H 11/28/18 11:19 Lactic Acid 2.40 mmol/L (0.7-2.0) H* 11/25/18 16:05 Calcium 8.8 mg/dL (8.4-10.2) 11/28/18 04:53 0.50 mg/dL (0.1-1.2) 11/25/18 15:22 AST 28 units/L (5-40) 11/25/18 15:22 ALT 27 units/L (7-56) 11/25/18 15:22 236 units/L (35-129) H 11/25/18 15:22 7.5 g/dL (6.3-8.2) 11/25/18 15:22 3.2 g/dL (3.9-5) L 11/25/18 15:22 0.7 % 11/25/18 15:22 Vancomycin Trough 25.2 ug/mL (5.0-20.0) H 11/28/18 04:53 Active Medications - Current Medications Current Medications: Generic Name Dose Route Start Last Admin Trade Name Freq PRN Reason Stop Dose Admin Acetaminophen 650 mg 11/26/18 00:14 11/28/18 00:08 Tylenol PO 650 mg Q4H PRN Administration Pain MILD(1-3)/Fever >100.5/TANG Acetaminophen/Hydrocodone Bitart 1 each 11/26/18 15:00 11/27/18 11:43 [place] 5/325 PO 1 each Q4H PRN Administration Pain, Moderate (4-6) Cholecalciferol 1,000 unit 11/27/18 10:00 11/28/18 10:48 Vitamin D3 PO Not Given QDAY [facility] Dextrose 50 ml 11/26/18 17:17 D50w (25gm) Syringe IV PRN PRN Hypoglycemia Enoxaparin Sodium 40 mg 11/26/18 10:00 11/28/18 10:47 Lovenox SUB-Q Not Given QDAY@1000 [facility] Furosemide 20 mg 11/26/18 18:00 11/28/18 05:25 Lasix PO 20 mg 0600,1800 [facility] Administration Hydrocortisone Acetate 10 mg 11/26/18 22:00 11/28/18 10:47 Cortef PO Not Given BID [facility] Hydromorphone HCl 0.5 mg 11/28/18 12:11 Dilaudid IV 11/28/18 23:59 Q10MIN PRN Pain , Severe (7-10) Piperacillin Sod/Tazobactam Sod 4.5 gm in 100 mls @ 200 mls/hr 11/25/18 22:00 11/28/18 07:00 Zosyn/Ns 4.5gm/100ml IV 200 mls/hr Q8HR [facility] Administration Protocol Sodium Chloride 1,000 mls @ 75 mls/hr 11/27/18 13:00 11/28/18 11:15 Nacl 0.45% 1000 Ml IV 75 mls/hr DIRECT [facility] Administration Daptomycin 700 mg/ Sodium 100 mls @ 200 mls/hr 11/28/18 12:00 11/28/18 13:20 Chloride IV 200 mls/hr Q24H [facility] Administration Protocol Insulin Glargine 70 units 11/27/18 16:25 11/27/18 22:30 Lantus SUB-Q 70 units QHS [facility] Administration Insulin Human Lispro 0 unit 11/26/18 18:00 11/28/18 11:13 Humalog SUB-Q Not Given Q6HR [facility] Protocol Lamotrigine 25 mg 11/26/18 22:00 11/28/18 10:47 Lamictal PO Not Given BID [facility] Levothyroxine Sodium 50 mcg 11/27/18 10:00 11/28/18 10:48 Synthroid PO Not Given QAM [facility] Metoprolol Tartrate 50 mg 11/26/18 22:00 11/28/18 10:47 Lopressor PO Not Given BID [facility] Miscellaneous Medication 0.1 inch 11/26/18 22:00 Mometasone 0.1% (Nf) TP BID [facility] Morphine Sulfate 2 mg 11/26/18 15:00 11/27/18 18:58 Morphine IV 2 mg Q4H PRN Administration Pain , Severe (7-10) Ondansetron HCl 4 mg 11/26/18 00:14 Zofran IV Q4H PRN Nausea And Vomiting Ondansetron HCl 4 mg 11/28/18 12:11 Zofran IV ONCE PRN Nausea And Vomiting Pregabalin 150 mg 11/26/18 22:00 11/28/18 10:48 Lyrica PO Not Given BID [facility] Sodium Chloride 10 ml 11/26/18 10:00 11/28/18 10:48 Sodium Chloride Flush Syringe 10 Ml IV Not Given BID [facility] Sodium Chloride 10 ml 11/26/18 00:14 Sodium Chloride Flush Syringe 10 Ml IV PRN PRN LINE FLUSH
--- NOTE | 2018-11-28 16:25 | Event Note ---
Date: 11/28/18 Patient in the OR today for incision and drainage, washout abdominal wall abscess and wound vac placement. Dr. West following. Will round on the patient tomorrow.
--- NOTE | 2018-11-28 20:37 | Operative Report ---
PREOPERATIVE DIAGNOSIS: Large abdominal wall abscess. POSTOPERATIVE DIAGNOSIS: Large abdominal wall abscess. FINDINGS: Large amount of purulent fluid with a large abscess cavity. Fascia and subcutaneous tissue, healthy. PROCEDURE: Incision and drainage, washout, abdominal wall abscess with wound VAC placement. ANESTHESIA: MAC local. SURGEON: Nery West DO. ESTIMATED BLOOD LOSS: Minimal. PATHOLOGY: None. CONDITION DISPOSITION: The patient is stable to PACU. HISTORY OF PRESENT ILLNESS AND INDICATION: The patient is a 53-year-old female who presented from a detention with complaints of abdominal pain and spontaneous drainage from an abdominal wall abscess. She was taken to the operating room on 11/26/2018 for debridement of the abscess and drainage. It was recommended the patient return to the operating room for the next dressing change to further evaluate the wound and washout. The patient continued to spike fevers. All risks, benefits and alternatives to surgery were discussed with the patient. Consent obtained. DESCRIPTION OF PROCEDURE IN DETAIL: The patient was identified in the preoperative area and taken back to the operating room. After anesthesia was induced, her abdomen was prepped and draped in the usual sterile fashion. A timeout was performed. Local anesthetic was infiltrated into the skin at the intended incision site and abdominal wall wound incision was extended towards the right lower abdomen by approximately 4 cm. The dissection was carried down through skin and subcutaneous tissue using Bovie electrocautery until the abscess cavity was encountered. All loculations were broken up using blunt dissection with a gloved finger. The abscess cavity tracked for approximately 12 inches towards the right lower quadrant. Once all the purulent material was expressed and suctioned out, the wound was copiously irrigated with pulse lavage. Hemostasis was carefully ensured. Adaptic was placed over the fascia. The wound was then packed with 1 piece of black sponge which was covered with a Tegaderm dressing. The wound VAC wafer was applied in the usual fashion and hooked up to -125 mmHg suction. There was no leak and there was a good seal. At the end of the case, all sponge, instrument, sharp counts were correct x 2. The patient was awoken from anesthesia and taken to PACU in stable condition. JOB# [id number] NK/NTS
[2018-11-29] MEDS: TYLENOL PO PRN (00:07)
[2018-11-29] MEDS: NORCO 5/325 PO PRN (00:07)
[2018-11-29] MEDS: LANTUS SUB-Q SCH ×2 (00:09→22:45)
[2018-11-29] MEDS: LOPRESSOR PO SCH ×3 (00:10→22:01)
[2018-11-29] MEDS: HumaLOG SUB-Q SCH ×4 (00:28→18:42)
[2018-11-29] MEDS: ZOSYN/NS 4.5GM/100ML 4.5 GM/100 ML VIAL IV SCH ×2 (00:29→06:05)
[2018-11-29] MEDS: LASIX PO SCH (06:48)
[2018-11-29] MEDS: LYRICA PO SCH ×3 (09:51→22:01)
[2018-11-29] MEDS: LOVENOX SUB-Q SCH (09:51)
[2018-11-29] MEDS: CORTEF PO SCH ×2 (09:53→22:00)
[2018-11-29 10:28] LABS: Calcium 8.9 mg/dL (8.4-10.2)
--- NOTE | 2018-11-29 11:06 | Progress Note ---
Assessment and Plan Cultures: 11/26/18 BCx - NGTD 11/26/18 Wound CX: light growth of skin otoniel A/P: Ms. Estrada is a 53-year-old female with a past medical history of hypertension, diabetes, history of being bedbound presents with sepsis secondary to abdominal wall abscess 1. Sepsis secondary to abdominal wall abscess: low grade fevers continuing. s/p incision and drainage, washout abdominal wall abscess with wound vac placement 11/29/18. Large amount of purulent drainage within large abscess cavity. Fascia and subcutaneous tissue healthy. Follow-up on surgical cultures. 2. HTN 3. DM2 4. JOEL: Antibiotics renally dosed. Continue to monitor serum creatinine. Discontinued vancomycin. Start Daptomycin. CK ordered. Recs: Continue Daptomycin every 48 hours, PK dosing. Monitor serum creatinine Continue pip-tazo 4.5g q8h CBC and CK ordered for tomorrow Dr. Pathak will round on Sunday. Dr. Warner is taking call this weekend , please call for questions. Pauline Novoa NP [facility] M: [phone] O:[phone] Subjective Date of service: 11/29/18 Interval history: Patient see and examined. Asleep, easy to arouse. Reports abdominal tenderness due to surgery. low grade fever. Objective - Exam Narrative Exam: Constitutional: Asleep. Easy to arouse. mild distress reported Head, Ears, Nose: Normocephalic, atraumatic. External ears, nose normal Eyes: Conjunctivae/corneas clear. No icterus. No ptosis. Neck: Supple, no meningeal signs Oral: fair dentition, moist mucous membranes Cardiovascular: S1, S2 normal. Normal rhythm Respiratory: Good air entry, clear to auscultation bilaterally GI: tender due to surgery. +wound Vac Musculoskeletal: No pedal edema, Skin: No rash or abscess Hem/Lymphatic: No palpable cervical or supraclavicular nodes. No lymphangitis Psych: no agitation Neurological: Moves all extremities, no focal defects - Constitutional Vitals: Vital Signs Temp Pulse Resp BP Pulse Ox 99.3 F 106 H 20 135/52 100 11/29/18 07:25 11/29/18 09:51 11/29/18 07:25 11/29/18 09:51 11/29/18 07:38 Temperature -Last 24 Hours Temperature 99.3 F Temperature 99.3 F Temperature 100.4 F Temperature 98.2 F Temperature 101.1 F Temperature 110 F Temperature 100.4 F Temperature 102 F Temperature 102 F Temperature 100.6 F - Labs CBC & Chem 7: 11/28/18 01:40 11/29/18 09:56 Labs: Abnormal lab results 11/28/18 11/28/18 11/28/18 Range/Units 11:19 16:14 19:35 Carbon Dioxide (22-30) mmol/L Creatinine 2.2 H (0.7-1.2) mg/dL Glucose (65-100) mg/dL POC Glucose 194 H 167 H (70-105) 11/29/18 11/29/18 11/29/18 Range/Units 00:15 06:27 09:56 Carbon Dioxide 16 L (22-30) mmol/L Creatinine 2.7 H (0.7-1.2) mg/dL Glucose 136 H (65-100) mg/dL POC Glucose 158 H 183 H (70-105)
[2018-11-29] MEDS: SYNTHROID PO SCH (11:10)
[2018-11-29] MEDS: VITAMIN D3 PO SCH (11:10)
[2018-11-29] MEDS: SODIUM CHLORIDE FLUSH SYRINGE 10 ML IV SCH ×2 (11:11→22:09)
[2018-11-29] MEDS: LaMICtal PO SCH ×2 (11:11→22:01)
--- NOTE | 2018-11-29 11:42 | Consultation ---
History of Present Illness - Reason for Consult Consult date: 11/29/18 acute renal failure - History of Present Illness The patient is a 53 YO female with history significant for Morbid Obesity, DM type 2, Hypertension, HLD, Seizures, Meningioma s/p rescetion, Sarcoidosis, Hypothyroidism, JANI, PUD and bed bound status who presented to [facility] ED for evaluation of purulent drainage from the previous PEG tube site. Patient is a poor historian. CT A/P showed anterior abd wall fluid and gas collection. General Surgery was consulted and she underwent I&D of abdominal wall abscess and debridement of wound. She was found to have large abdominal wall abscess with cavity tunnelling towards the right lower abdomen for about 12 inches. Two small metallic foreign objects found in abscess cavity likely related to old PEG tube. Creatinine level increased from 0.4 to 2.7 today. Nephrology was consulted for further evaluation. Past History Past Medical History: diabetes, hypertension, hyperlipidemia, other (obesity, bedbound, brain tumor, thigh abscess) Past Surgical History: (x3), Other (brain surgery, incision and drainage of thigh abscess) Social history: other (lives in [place]). denies: smoking, alcohol abuse, prescription drug abuse Family history: diabetes, hypertension Medications and Allergies Allergies Allergy/AdvReac Type Severity Reaction Status Date / Time erythromycin base Allergy Itching Verified 11/26/18 06:03 [From Erythrocin] Penicillins Allergy Rash Verified 11/26/18 06:02 Home Medications Medication Instructions Recorded Confirmed Last Taken Type Atorvastatin Calcium 40 mg PO BID 11/26/18 11/26/18 11/25/18 08:00 History Cholecalciferol Vit D3 [Vitamin D3 1,000 1000units PO QDAY 11/26/18 11/26/18 11/25/18 08:00 History 1,000 UNIT TAB] Eliquis 5 mg PO QDAY 11/26/18 11/26/18 Unknown History HYDROcodone/APAP 5-325 [[place] 1 each PO Q4HR PRN 11/26/18 11/26/18 Unknown History 5/325] Hydrocortisone [Cortef TAB] 10 mg PO BID 11/26/18 11/26/18 Unknown History Insulin Glargine,Hum.rec.anlog 60 unit SQ QHS 11/26/18 11/26/18 Unknown History [Lantus Solostar] Insulin Glargine,Hum.rec.anlog See Protocol SUB-Q QACHS 11/26/18 11/29/18 Unknown History [Lantus Solostar] Insulin Lispro Prot/Lispro 45 1000units SUB-Q BID 11/26/18 11/29/18 Unknown History [HumaLOG Mix 75/25 Vial] Lasix TAB 20 mg PO BID 11/26/18 11/26/18 Unknown History Levothyroxine [Synthroid] 50 mcg PO QAM 11/26/18 11/26/18 11/24/18 08:00 History Lispro Insulin [HumaLOG] See Protocol SUB-Q ACHS 11/26/18 11/29/18 11/25/18 History Metoprolol [Lopressor TAB] 50 mg PO BID 11/26/18 11/26/18 Unknown History Mometasone 0.1% (Nf) 0.1 units TP BID 11/26/18 11/29/18 Unknown History Pantoprazole [Protonix] 40 mg PO BID 11/26/18 11/26/18 Unknown History Petrolatum,White [Vaseline White 5 gm TP BID 11/26/18 11/26/18 Unknown History Petroleum] Pregabalin [Lyrica] 150 mg PO BID 11/26/18 11/26/18 11/25/18 08:00 History lamoTRIgine [LaMICtal] 25 mg PO BID 11/26/18 11/26/18 Unknown History Active Meds: Active Medications Acetaminophen (Tylenol) 650 mg PO Q4H PRN PRN Reason: Pain MILD(1-3)/Fever >100.5/TANG Last Admin: 11/29/18 00:07 Dose: 325 mg Documented by: Acetaminophen/Hydrocodone Bitart ([place] 5/325) 1 each PO Q4H PRN PRN Reason: Pain, Moderate (4-6) Last Admin: 11/29/18 00:07 Dose: 1 each Documented by: Cholecalciferol (Vitamin D3) 1,000 unit PO QDAY [facility] Last Admin: 11/29/18 11:10 Dose: 1,000 unit Documented by: Dextrose (D50w (25gm) Syringe) 50 ml IV PRN PRN PRN Reason: Hypoglycemia Enoxaparin Sodium (Lovenox) 30 mg SUB-Q QDAY [facility] Last Admin: 11/29/18 09:51 Dose: 30 mg Documented by: Furosemide (Lasix) 20 mg PO 0600,1800 [facility] Last Admin: 11/29/18 06:48 Dose: Not Given Documented by: Hydrocortisone Acetate (Cortef) 10 mg PO BID [facility] Last Admin: 11/29/18 09:53 Dose: 10 mg Documented by: Sodium Chloride (Nacl 0.45% 1000 Ml) 1,000 mls @ 75 mls/hr IV DIRECT [facility] Last Admin: 11/28/18 23:06 Dose: 75 mls/hr Documented by: Piperacillin Sod/Tazobactam Sod (Zosyn/Ns 2.25 Gm/50ml) 2.25 gm in 50 mls @ 100 mls/hr IV Q6HR [facility] Daptomycin 700 mg/ Sodium (Chloride) 100 mls @ 200 mls/hr IV Q48H [facility]; Protocol Insulin Glargine (Lantus) 70 units SUB-Q QHS [facility] Last Admin: 11/29/18 00:09 Dose: Not Given Documented by: Insulin Human Lispro (Humalog) 0 unit SUB-Q Q6HR [facility]; Protocol Last Admin: 11/29/18 06:25 Dose: 3 unit Documented by: Lamotrigine (Lamictal) 25 mg PO BID [facility] Last Admin: 11/29/18 11:11 Dose: 25 mg Documented by: Levothyroxine Sodium (Synthroid) 50 mcg PO QAM [facility] Last Admin: 11/29/18 11:10 Dose: 50 mcg Documented by: Metoprolol Tartrate (Lopressor) 50 mg PO BID [facility] Last Admin: 11/29/18 09:51 Dose: 50 mg Documented by: Miscellaneous Medication (Mometasone 0.1% (Nf)) 0.1 inch TP BID [facility] Morphine Sulfate (Morphine) 2 mg IV Q4H PRN PRN Reason: Pain , Severe (7-10) Last Admin: 11/27/18 18:58 Dose: 2 mg Documented by: Ondansetron HCl (Zofran) 4 mg IV Q4H PRN PRN Reason: Nausea And Vomiting Pregabalin (Lyrica) 150 mg PO BID [facility] Last Admin: 11/29/18 09:51 Dose: 150 mg Documented by: Sodium Chloride (Sodium Chloride Flush Syringe 10 Ml) 10 ml IV BID [facility] Last Admin: 11/29/18 11:11 Dose: 10 ml Documented by: Sodium Chloride (Sodium Chloride Flush Syringe 10 Ml) 10 ml IV PRN PRN PRN Reason: LINE FLUSH Review of Systems ROS unobtainable: due to mental status Exam - Vital Signs Vital signs: Vital Signs Temp Pulse Resp BP Pulse Ox 99 F 99 H 18 113/56 100 11/25/18 14:38 11/25/18 14:38 11/25/18 14:38 11/25/18 14:38 11/25/18 14:38 - General Appearance General appearance: well-developed, well-nourished, appears stated age, obese, other (no distress) EENT: ATNC, PERRL, hearing intact, vision intact Neck: Present: neck supple, trachea midline Respiratory: Clear to Ascultation Heart: regular, S1S2, no murmurs Gastrointestinal: Present: normoactive bowel sounds, obese, other (wound vac noted). Absent: tenderness Integumentary: no rash Neurologic: confused, disoriented, other (able to move extremities) Musculoskeletal: Present: other (no edema) Psychiatric: cooperative Results - Lab Results 11/28/18 01:40 11/29/18 09:56 Most recent lab results Calcium 8.9 mg/dL (8.4-10.2) 11/29/18 09:56 - Image Kidney/bladder ultrasound: report reviewed Assessment and Plan 1. Acute kidney injury: JOEL likley multifactorial in the setting of sepsis, hypotension and IV contrast. CT abdomen was negative for hydro. Renal function continue to decline. Continue IV fluids. Monitor renal function. Avoid nephrotoxic agents. Meds dosage based on GFR. 2. FEN: Metabolic acidosis, continue IV fluids. Monitor lytes. 3. Abdominal wall abscess: S/p I&D. 4. Sepsis: Followed by ID. 5. DM Type 2. 6. Seizures. 7. Meningioma. 8. Sleep apnea. 9. PUD.
--- NOTE | 2018-11-29 12:34 | Progress Note ---
Assessment and Plan 53 yo F s/p incision and drainage, washout abdominal wall abscess with wound vac placement, POD 1 and incision and drainage of abdominal wall abscess and debridement of wound, POD 11/26/18 Plan: 1. continue current diet 2. IVF - maintenance when NPO 3. IV abx per ID 4. follow up wound cultures 5. prn pain control 6. wound vac to -125mmhg continuous suction. solar field service technician on board. Will change vac dressing on Sunday Plan discussed with patient at bedside Thank you, please call with questions. Subjective Date of service: 11/29/18 Narrative: Pt seen and examined. No acute complaints. + Fever immediately after surgery however no fever this am. Mild pain at surgical site, controlled with pain medications. Objective Vital Signs - 12hr 11/29/18 11/29/18 11/29/18 01:07 03:04 05:11 Temperature 99.3 F Pulse Rate 49 L Respiratory 17 24 Rate Blood Pressure 94/58 O2 Sat by Pulse 98 81 L Oximetry 11/29/18 11/29/18 11/29/18 05:40 07:25 07:38 Temperature 99.3 F Pulse Rate 105 H 102 H Respiratory 17 20 Rate Blood Pressure 121/51 O2 Sat by Pulse 99 100 100 Oximetry 11/29/18 09:51 Temperature Pulse Rate 106 H Respiratory Rate Blood Pressure 135/52 O2 Sat by Pulse Oximetry - General physical appearance Narrative Exam: Gen: AAOx3. NAD. more awake and interactive today CV: s1, S2+ resp; even and unlabored Abd: soft, ND, mild TTP at surgical site. Wound vac in place with good seal, no leak. Serosang fluid in canister. Erythema surrounding wound mildly improved. - Labs 11/28/18 01:40 11/29/18 09:56 Diabetes panel 11/28/18 11/29/18 Range/Units 19:35 09:56 Sodium 138 (137-145) mmol/L Potassium 3.9 (3.6-5.0) mmol/L Chloride 105.5 (98-107) mmol/L Carbon Dioxide 16 L (22-30) mmol/L BUN 10 13 (7-17) mg/dL Creatinine 2.2 H 2.7 H (0.7-1.2) mg/dL Glucose 136 H (65-100) mg/dL Calcium 8.9 (8.4-10.2) mg/dL Calcium panel 11/29/18 Range/Units 09:56 Calcium 8.9 (8.4-10.2) mg/dL Pituitary panel 11/28/18 11/29/18 Range/Units 19:35 09:56 Sodium 138 (137-145) mmol/L Potassium 3.9 (3.6-5.0) mmol/L Chloride 105.5 (98-107) mmol/L Carbon Dioxide 16 L (22-30) mmol/L BUN 10 13 (7-17) mg/dL Creatinine 2.2 H 2.7 H (0.7-1.2) mg/dL Glucose 136 H (65-100) mg/dL Calcium 8.9 (8.4-10.2) mg/dL Adrenal panel 11/28/18 11/29/18 Range/Units 19:35 09:56 Sodium 138 (137-145) mmol/L Potassium 3.9 (3.6-5.0) mmol/L Chloride 105.5 (98-107) mmol/L Carbon Dioxide 16 L (22-30) mmol/L BUN 10 13 (7-17) mg/dL Creatinine 2.2 H 2.7 H (0.7-1.2) mg/dL Glucose 136 H (65-100) mg/dL Calcium 8.9 (8.4-10.2) mg/dL
[2018-11-29] MEDS: NACL 0.45% 1000 ML 1,000 ML IV SCH ×2 (12:51→12:52)
[2018-11-29] MEDS: ZOSYN/NS 2.25 GM/50ML 2.25 GM/50 ML BAG IV SCH ×3 (12:51→23:46)
[2018-11-29] MEDS: NACL 0.9% 1000 ML 1,000 ML IV SCH ×2 (12:53→23:46)
[2018-11-29] MEDS: PEPCID PO SCH ×2 (14:30→22:01)
--- NOTE | 2018-11-29 16:17 | Progress Note ---
Assessment and Plan Assessment and plan: Patient is a 53-year-old female with a past medical history of hypertension, diabetes, seizures, meningioma, sarcoidosis, hypothyroidism, hyperlipidemia, sleep apnea, duodenal ulcer, morbid obesity, history of being bedbound who initially presented with abdominal pain and drainage and was noted ot have area of indurating with inflammation and ill-defined fluid and gas bubbles. On Evaluation of PEG tube site it was noted to have induration Febrile during admission to 100.9 with a leukocytosis of 15. Blood cultures from 11/25 are currently pending. She is currently receiving vancomycin and pip- tazo. Chest x-ray with mild fluid overload. Abdominal CT with fluids/gas bubble in the abdominal wall. She has been evaluated by general surgery and was taken for drainage in the OR. Copious pus noted with tunnelling abscess. s/p OR drainage 11/26/18 Large abdominal wall abscess with cavity tunnelling towards the right lower abdomen for about 12 inches. Large amount of purulent fluid. Abscess cavity extends to fascia. Two small metallic foreign objects found in abscess cavity likely related to old PEG tube CT A/P IMPRESSION: 1. Area of induration with inflammation and ill-defined fluid and gas bubbles in the anterior abdominal wall with the epicenter in the left upper quadrant possibly related to previous gastrostomy tube. No discrete drainable fluid collection at this time CT head: IMPRESSION: No acute intracranial process is identified. Moderate bifrontal encephalomalacia is identified which is probably secondary to surgery. There is also suggestion of a left parafalcine extra-axial mass which probably represents a meningioma. 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 Sepsis secondary to Abdominal abscess- POD 2 OR drainage JOEL secondary to vasomotor nephropathy with unerlying contrast induced nephropathy hypertension Diabetes Mellitus With hyperglycmia Chronic Focal infarct in the right occipital lobe Seizures meningioma Sarcoidosis hypothyroidism hyperlipidemia Sleep apnea Duodenal ulcer morbid obesity Acute Encephalopathy- worsening per daughter. Plan Supportive care Discussed with Payroll And Benefits Coordinator avoid nephrtoxic meds ID input noted Continue IV fluid, Abx per ID. VANCOMYCIN HELD Follow up wound cultures Adjust Insulin dose, patient also on Hydrocortizone making BG management difficult CT head per daughters request due to changing mental status, Daughter understands that we do not have Neurosurgery. Out Patient Neurosurgery follow up considering probably reoccurrance of mengioma in the setting of some mental status changes intermittently Insulin FOR BETTER CONTROL OF BG. Follow cultures Continue appropriate outpatient medications DVT prophylaxis History Interval history: Patient is seen and examined today, no new complaints, wound vac in place Hospitalist Physical - Physical exam Narrative exam: General Apperance: The patient sitting in bed no acute distress HEENT: Normocephalic, atraumatic. Pupils equally round and reactive to light, extraocular movement intact, and no sclericterus or JVD or thyromegaly or nodule. Neck supple, no carotid bruit, mucous membranes moist, no exudate or erythema Heart: S1-S2, regular is rhythm Lungs: Clear to auscultation bilaterally, breathing comfortable Abdomen: Positive bowel sounds, soft, tender in LUQ, + erythema,wound vac noted in place PEG tube site, non distended, no organomegaly Extremities: trace edema, no cyanosis clubbing Skin: no rash, nodule, warm and dry Neuro:CN 2 -12 intact,speech is fluent - Constitutional Vitals: Temp Pulse Resp BP Pulse Ox 99.3 F 106 H 19 135/52 97 11/29/18 07:25 11/29/18 10:00 11/29/18 10:00 11/29/18 09:51 11/29/18 10:00 Results - Labs CBC & Chem 7: 11/30/18 07:15 11/30/18 07:15 Labs: Laboratory Last Values WBC 11.5 K/mm3 (4.5-11.0) H 11/28/18 01:40 RBC 4.23 M/mm3 (3.65-5.03) 11/28/18 01:40 Hgb 9.7 gm/dl (10.1-14.3) L 11/28/18 01:40 Hct 31.3 % (30.3-42.9) 11/28/18 01:40 MCV 74 fl (79-97) L 11/28/18 01:40 MCH 23 pg (28-32) L 11/28/18 01:40 MCHC 31 % (30-34) 11/28/18 01:40 RDW 14.9 % (13.2-15.2) 11/28/18 01:40 Plt Count 634 K/mm3 (140-440) H 11/28/18 01:40 Lymph % (Auto) Layout Man 11/26/18 04:15 Edmonson % (Auto) Layout Man 11/26/18 04:15 Eos % (Auto) Layout Man 11/26/18 04:15 Baso % (Auto) Layout Man 11/26/18 04:15 Lymph # Layout Man 11/26/18 04:15 Edmonson # Layout Man 11/26/18 04:15 Eos # Layout Man 11/26/18 04:15 Baso # Layout Man 11/26/18 04:15 Add Manual Diff Complete 11/28/18 01:40 Total Counted 100 11/28/18 01:40 Seg Neutrophils % Layout Man 11/26/18 04:15 Seg Neuts % (Manual) 85.0 % (40.0-70.0) H 11/28/18 01:40 0 % 11/28/18 01:40 1.0 % (13.4-35.0) L 11/28/18 01:40 Reactive Lymphs % (Man) 0 % 11/28/18 01:40 7.0 % (0.0-7.3) 11/28/18 01:40 2.0 % (0.0-4.3) 11/28/18 01:40 0 % (0.0-1.8) 11/28/18 01:40 2.0 % 11/28/18 01:40 3.0 % 11/28/18 01:40 0 % 11/28/18 01:40 0 % 11/28/18 01:40 Nucleated RBC % Not Reportable 11/28/18 01:40 Seg Neutrophils # Layout Man 11/26/18 04:15 Seg Neutrophils # Man 9.8 K/mm3 (1.8-7.7) H 11/28/18 01:40 Band Neutrophils # 0.0 K/mm3 11/28/18 01:40 0.1 K/mm3 (1.2-5.4) L 11/28/18 01:40 Abs React Lymphs (Man) 0.0 K/mm3 11/28/18 01:40 0.8 K/mm3 (0.0-0.8) 11/28/18 01:40 0.2 K/mm3 (0.0-0.4) 11/28/18 01:40 0.0 K/mm3 (0.0-0.1) 11/28/18 01:40 0.2 K/mm3 11/28/18 01:40 0.3 K/mm3 11/28/18 01:40 0.0 K/mm3 11/28/18 01:40 Blast Cells # 0.0 K/mm3 11/28/18 01:40 WBC Morphology Not Reportable 11/28/18 01:40 Hypersegmented Neuts Not Reportable 11/28/18 01:40 Hyposegmented Neuts Not Reportable 11/28/18 01:40 Hypogranular Neuts Not Reportable 11/28/18 01:40 Not Reportable 11/28/18 01:40 Not Reportable 11/28/18 01:40 Not Reportable 11/28/18 01:40 Not Reportable 11/28/18 01:40 Not Reportable 11/28/18 01:40 Not Reportable 11/28/18 01:40 Appears increased 11/28/18 01:40 Not Reportable 11/28/18 01:40 Plt Clumps, EDTA Not Reportable 11/28/18 01:40 1+ 11/28/18 01:40 Not Reportable 11/28/18 01:40 Not Reportable 11/28/18 01:40 Plt Morphology Comment Not Reportable 11/28/18 01:40 RBC Morphology Not Reportable 11/28/18 01:40 Dimorphic RBCs Not Reportable 11/28/18 01:40 Not Reportable 11/28/18 01:40 1+ 11/28/18 01:40 Not Reportable 11/28/18 01:40 1+ 11/28/18 01:40 Not Reportable 11/28/18 01:40 Not Reportable 11/28/18 01:40 Not Reportable 11/28/18 01:40 Not Reportable 11/28/18 01:40 Not Reportable 11/28/18 01:40 Not Reportable 11/28/18 01:40 Not Reportable 11/28/18 01:40 Not Reportable 11/28/18 01:40 Not Reportable 11/28/18 01:40 Not Reportable 11/28/18 01:40 Not Reportable 11/28/18 01:40 Not Reportable 11/28/18 01:40 Not Reportable 11/28/18 01:40 Not Reportable 11/28/18 01:40 Not Reportable 11/28/18 01:40 Acanthocytes (Spur) Not Reportable 11/28/18 01:40 Rouleaux Not Reportable 11/28/18 01:40 Not Reportable 11/28/18 01:40 Not Reportable 11/28/18 01:40 Not Reportable 11/28/18 01:40 Not Reportable 11/28/18 01:40 Hem Pathologist Commnt No 11/28/18 01:40 Sodium 138 mmol/L (137-145) 11/29/18 09:56 Potassium 3.9 mmol/L (3.6-5.0) 11/29/18 09:56 Chloride 105.5 mmol/L (98-107) 11/29/18 09:56 Carbon Dioxide 16 mmol/L (22-30) L 11/29/18 09:56 20 mmol/L 11/29/18 09:56 BUN 13 mg/dL (7-17) 11/29/18 09:56 2.7 mg/dL (0.7-1.2) H 11/29/18 09:56 Estimated GFR 22 ml/min 11/29/18 09:56 5 % 11/29/18 09:56 Glucose 136 mg/dL (65-100) H 11/29/18 09:56 POC Glucose 207 (70-105) H 11/29/18 12:25 Lactic Acid 2.40 mmol/L (0.7-2.0) H* 11/25/18 16:05 Calcium 8.9 mg/dL (8.4-10.2) 11/29/18 09:56 0.50 mg/dL (0.1-1.2) 11/25/18 15:22 AST 28 units/L (5-40) 11/25/18 15:22 ALT 27 units/L (7-56) 11/25/18 15:22 236 units/L (35-129) H 11/25/18 15:22 7.5 g/dL (6.3-8.2) 11/25/18 15:22 3.2 g/dL (3.9-5) L 11/25/18 15:22 0.7 % 11/25/18 15:22 Vancomycin Trough 25.2 ug/mL (5.0-20.0) H 11/28/18 04:53 Active Medications - Current Medications Current Medications: Generic Name Dose Route Start Last Admin Trade Name Freq PRN Reason Stop Dose Admin Acetaminophen 650 mg 08/06/19 00:14 11/29/18 00:07 Tylenol PO 325 mg Q4H PRN Administration Pain MILD(1-3)/Fever >100.5/TANG Acetaminophen/Hydrocodone Bitart 1 each 11/26/18 15:00 11/29/18 00:07 [place] 5/325 PO 1 each Q4H PRN Administration Pain, Moderate (4-6) Cholecalciferol 1,000 unit 11/27/18 10:00 11/29/18 11:10 Vitamin D3 PO 1,000 unit QDAY VIOLETA Administration Dextrose 50 ml 11/26/18 17:17 D50w (25gm) Syringe IV PRN PRN Hypoglycemia Enoxaparin Sodium 30 mg 11/29/18 10:00 11/29/18 09:51 Lovenox SUB-Q 30 mg QDAY VIOLETA Administration Famotidine 20 mg 11/29/18 14:00 Pepcid PO BID VIOLETA Hydrocortisone Acetate 10 mg 11/26/18 22:00 11/29/18 09:53 Cortef PO 10 mg BID VIOLETA Administration Piperacillin Sod/Tazobactam Sod 2.25 gm in 50 mls @ 100 mls/hr 11/29/18 12:00 11/29/18 12:51 Zosyn/Ns 2.25 Gm/50ml IV 100 mls/hr Q6HR VIOLETA Administration Daptomycin 700 mg/ Sodium 100 mls @ 200 mls/hr 11/30/18 10:00 Chloride IV Q48H [facility] Protocol Sodium Chloride 1,000 mls @ 150 mls/hr 11/29/18 12:00 11/29/18 12:53 Nacl 0.9% 1000 Ml IV 150 mls/hr DIRECT VIOLETA Administration Insulin Glargine 70 units 11/27/18 16:25 11/29/18 00:09 Lantus SUB-Q Not Given QHS VIOLETA Insulin Human Lispro 0 unit 11/26/18 18:00 11/29/18 12:58 Humalog SUB-Q 4 unit Q6HR VIOLETA Administration Protocol Lamotrigine 25 mg 11/26/18 22:00 11/29/18 11:11 Lamictal PO 25 mg BID VIOLETA Administration Levothyroxine Sodium 50 mcg 11/27/18 10:00 11/29/18 11:10 Synthroid PO 50 mcg QAM VIOLETA Administration Metoprolol Tartrate 50 mg 11/26/18 22:00 11/29/18 09:51 Lopressor PO 50 mg BID VIOLETA Administration Miscellaneous Medication 0.1 inch 11/26/18 22:00 Mometasone 0.1% (Nf) TP BID VIOLETA Morphine Sulfate 2 mg 11/26/18 15:00 11/27/18 18:58 Morphine IV 2 mg Q4H PRN Administration Pain , Severe (7-10) Ondansetron HCl 4 mg 11/26/18 00:14 Zofran IV Q4H PRN Nausea And Vomiting Pregabalin 75 mg 11/29/18 14:00 11/29/18 14:00 Lyrica PO 75 mg BID VIOLETA Administration Sodium Chloride 10 ml 11/26/18 10:00 11/29/18 11:11 Sodium Chloride Flush Syringe 10 Ml IV 10 ml BID VIOLETA Administration Sodium Chloride 10 ml 11/26/18 00:14 Sodium Chloride Flush Syringe 10 Ml IV PRN PRN LINE FLUSH
--- NOTE | 2018-11-29 18:06 | Ultrasound Report ---
ULTRASOUND RENAL INDICATION: Acute renal insufficiency. COMPARISON: CT abdomen 4 days prior.. FINDINGS: RIGHT KIDNEY: Size: 13.1 cm. Echogenicity: Normal. Cortical thickness: Normal. Stones: None. Hydronephrosis: None. Cyst or mass: None. LEFT KIDNEY: Size: 13.9 cm. Echogenicity: Normal. Cortical thickness: Normal. Stones: None. Hydronephrosis: None. Cyst or mass: None. Urinary Bladder: No significant abnormality. Free Fluid: None. Additional Findings: None. IMPRESSION 1. No acute sonographic abnormality of the kidneys. Signer Name: El Pathak MD Signed: 11/29/2018 6:01 PM Workstation Name: [id number]
[2018-11-29] MEDS ORDERED: PROVENTIL IH ONE (23:19)
[2018-11-29 23:30] LABS: Bacteria,Urine 2+ /HPF (Negative); Bilirubin,Urine NEG (Negative); Blood,Urine SM (Negative); Color,Urine Yellow (Yellow); Mucus,Urine FEW /HPF; Urobilinogen,Urine < 2.0 mg/dL (<2.0)
[2018-11-29 23:51] LABS: Creatinine,Urine 55.6 mg/dL (0.1-20.0)
[2018-11-30] MEDS ORDERED: PROVENTIL IH NR (00:41)
[2018-11-30] MEDS: ZOSYN/NS 2.25 GM/50ML 2.25 GM/50 ML BAG IV SCH ×3 (06:00→18:21)
[2018-11-30] MEDS: HumaLOG SUB-Q SCH ×4 (06:03→18:26)
[2018-11-30 07:51] LABS: Hematocrit 30.5 % (30.3-42.9); Hemoglobin 9.2 gm/dl (10.1-14.3); Mean Corpuscular HGB Conc 30 % (30-34); Mean Corpuscular Volume 75 fl (79-97); Platelet Count 617 K/mm3 (140-440); Red Blood Count 4.05 M/mm3 (3.65-5.03); Red Cell Distribution Width 15.3 % (13.2-15.2)
[2018-11-30 07:58] LABS: Calcium 8.6 mg/dL (8.4-10.2)
[2018-11-30 09:12] LABS: Anisocytosis 1+; Band Neutrophils # (Manual) 0.8 K/mm3; Basophils % (Manual) 0 % (0.0-1.8); Myelocytes # (Manual) 0.3 K/mm3; Promyelocytes # (Manual) 0.1 K/mm3; Total Cells Counted 100
[2018-11-30 09:13] LABS: Hypochromasia 1+; Platelet Estimate Consistent w Auto
[2018-11-30] MEDS: LOPRESSOR PO SCH (10:00)
[2018-11-30] MEDS: DAPTOMYCIN IV SCH (10:00)
[2018-11-30] MEDS: NACL 0.9% IV SCH (10:00)
--- NOTE | 2018-11-30 10:22 | Progress Note ---
Assessment and Plan Assessment and plan: Patient is a 53-year-old female with a past medical history of hypertension, diabetes, seizures, meningioma, sarcoidosis, hypothyroidism, hyperlipidemia, sleep apnea, duodenal ulcer, morbid obesity, history of being bedbound who initially presented with abdominal pain and drainage and was noted ot have area of indurating with inflammation and ill-defined fluid and gas bubbles. On Evaluation of PEG tube site it was noted to have induration Febrile during admission to 100.9 with a leukocytosis of 15. Blood cultures from 11/25 are currently pending. She is currently receiving vancomycin and pip- tazo. Chest x-ray with mild fluid overload. Abdominal CT with fluids/gas bubble in the abdominal wall. She has been evaluated by general surgery and was taken for drainage in the OR. Copious pus noted with tunnelling abscess. s/p OR drainage 11/26/18 Large abdominal wall abscess with cavity tunnelling towards the right lower abdomen for about 12 inches. Large amount of purulent fluid. Abscess cavity extends to fascia. Two small metallic foreign objects found in abscess cavity likely related to old PEG tube CT A/P IMPRESSION: 1. Area of induration with inflammation and ill-defined fluid and gas bubbles in the anterior abdominal wall with the epicenter in the left upper quadrant possibly related to previous gastrostomy tube. No discrete drainable fluid collection at this time CT head: IMPRESSION: No acute intracranial process is identified. Moderate bifrontal encephalomalacia is identified which is probably secondary to surgery. There is also suggestion of a left parafalcine extra-axial mass which probably represents a meningioma. 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 Sepsis secondary to Abdominal abscess- POD 2 OR drainage JOEL secondary to vasomotor nephropathy with unerlying contrast induced nephropathy hypertension Diabetes Mellitus With hyperglycmia Chronic Focal infarct in the right occipital lobe Seizures meningioma Sarcoidosis hypothyroidism hyperlipidemia Sleep apnea Duodenal ulcer morbid obesity Acute Encephalopathy- worsening per daughter. Plan Supportive care Discussed with Ammonium Nitrate Neutralizer avoid nephrtoxic meds ID input noted Continue IV fluid, Abx per ID. Vanc HELD Follow up wound cultures Adjust Insulin dose, patient also on Hydrocortizone making BG management difficult CT head per daughters request due to changing mental status, Daughter understands that we do not have Neurosurgery. Out Patient Neurosurgery follow up considering probably reoccurrance of mengioma in the setting of some mental status changes intermittently Insulin FOR BETTER CONTROL OF BG. Follow cultures Continue appropriate outpatient medications DVT prophylaxis History Interval history: Patient is seen and examined today, no new complaints, wound vac in place, rest ing comfortable Hospitalist Physical - Physical exam Narrative exam: General Apperance: The patient sitting in bed no acute distress HEENT: Normocephalic, atraumatic. Pupils equally round and reactive to light, extraocular movement intact, and no sclericterus or JVD or thyromegaly or nodule. Neck supple, no carotid bruit, mucous membranes moist, no exudate or erythema Heart: S1-S2, regular is rhythm Lungs: Clear to auscultation bilaterally, breathing comfortable Abdomen: Positive bowel sounds, soft, tender in LUQ, + erythema,wound vac noted in place PEG tube site, non distended, no organomegaly Extremities: trace edema, no cyanosis clubbing Skin: no rash, nodule, warm and dry Neuro:CN 2 -12 intact,speech is fluent - Constitutional Vitals: Temp Pulse Resp BP Pulse Ox 97.0 F L 100 H 16 130/63 96 11/30/18 07:19 11/30/18 07:19 11/30/18 07:19 11/30/18 07:19 11/30/18 09:28 Results - Labs CBC & Chem 7: 11/30/18 07:15 11/30/18 07:15 Labs: Laboratory Last Values WBC 13.0 K/mm3 (4.5-11.0) H 11/30/18 07:15 RBC 4.05 M/mm3 (3.65-5.03) 11/30/18 07:15 Hgb 9.2 gm/dl (10.1-14.3) L 11/30/18 07:15 Hct 30.5 % (30.3-42.9) 11/30/18 07:15 MCV 75 fl (79-97) L 11/30/18 07:15 MCH 23 pg (28-32) L 11/30/18 07:15 MCHC 30 % (30-34) 11/30/18 07:15 RDW 15.3 % (13.2-15.2) H 11/30/18 07:15 Plt Count 617 K/mm3 (140-440) H 11/30/18 07:15 Lymph % (Auto) Dialysis Equipment Technician 11/26/18 04:15 [place] % (Auto) Dialysis Equipment Technician 11/26/18 04:15 Eos % (Auto) Dialysis Equipment Technician 11/26/18 04:15 Baso % (Auto) Dialysis Equipment Technician 11/26/18 04:15 Lymph # Dialysis Equipment Technician 11/26/18 04:15 [place] # Dialysis Equipment Technician 11/26/18 04:15 Eos # Dialysis Equipment Technician 11/26/18 04:15 Baso # Dialysis Equipment Technician 11/26/18 04:15 Add Manual Diff Complete 11/30/18 07:15 Total Counted 100 11/30/18 07:15 Seg Neutrophils % Dialysis Equipment Technician 11/26/18 04:15 Seg Neuts % (Manual) 64.0 % (40.0-70.0) 11/30/18 07:15 6.0 % 11/30/18 07:15 15.0 % (13.4-35.0) 11/30/18 07:15 Reactive Lymphs % (Man) 0 % 11/30/18 07:15 7.0 % (0.0-7.3) 11/30/18 07:15 2.0 % (0.0-4.3) 11/30/18 07:15 0 % (0.0-1.8) 11/30/18 07:15 3.0 % 11/30/18 07:15 2.0 % 11/30/18 07:15 1.0 % 11/30/18 07:15 0 % 11/30/18 07:15 Nucleated RBC % Not Reportable 11/30/18 07:15 Seg Neutrophils # Dialysis Equipment Technician 11/26/18 04:15 Seg Neutrophils # Man 8.3 K/mm3 (1.8-7.7) H 11/30/18 07:15 Band Neutrophils # 0.8 K/mm3 11/30/18 07:15 2.0 K/mm3 (1.2-5.4) 11/30/18 07:15 Abs React Lymphs (Man) 0.0 K/mm3 11/30/18 07:15 0.9 K/mm3 (0.0-0.8) H 11/30/18 07:15 0.3 K/mm3 (0.0-0.4) 11/30/18 07:15 0.0 K/mm3 (0.0-0.1) 11/30/18 07:15 0.4 K/mm3 11/30/18 07:15 0.3 K/mm3 11/30/18 07:15 0.1 K/mm3 11/30/18 07:15 Blast Cells # 0.0 K/mm3 11/30/18 07:15 WBC Morphology Not Reportable 11/30/18 07:15 Hypersegmented Neuts Not Reportable 11/30/18 07:15 Hyposegmented Neuts Not Reportable 11/30/18 07:15 Hypogranular Neuts Not Reportable 11/30/18 07:15 Not Reportable 11/30/18 07:15 Not Reportable 11/30/18 07:15 Not Reportable 11/30/18 07:15 Not Reportable 11/30/18 07:15 Not Reportable 11/30/18 07:15 Not Reportable 11/30/18 07:15 Consistent w auto 11/30/18 07:15 Not Reportable 11/30/18 07:15 Plt Clumps, EDTA Not Reportable 11/30/18 07:15 Not Reportable 11/30/18 07:15 Not Reportable 11/30/18 07:15 Not Reportable 11/30/18 07:15 Plt Morphology Comment Not Reportable 11/30/18 07:15 RBC Morphology Not Reportable 11/30/18 07:15 Dimorphic RBCs Not Reportable 11/30/18 07:15 Not Reportable 11/30/18 07:15 1+ 11/30/18 07:15 Not Reportable 11/30/18 07:15 1+ 11/30/18 07:15 1+ 11/30/18 07:15 Not Reportable 11/30/18 07:15 Not Reportable 11/30/18 07:15 Not Reportable 11/30/18 07:15 Not Reportable 11/30/18 07:15 Not Reportable 11/30/18 07:15 Not Reportable 11/30/18 07:15 Not Reportable 11/30/18 07:15 Not Reportable 11/30/18 07:15 Not Reportable 11/30/18 07:15 Not Reportable 11/30/18 07:15 Not Reportable 11/30/18 07:15 Not Reportable 11/30/18 07:15 Not Reportable 11/30/18 07:15 Not Reportable 11/30/18 07:15 Acanthocytes (Spur) Not Reportable 11/30/18 07:15 Rouleaux Not Reportable 11/30/18 07:15 Not Reportable 11/30/18 07:15 Not Reportable 11/30/18 07:15 Not Reportable 11/30/18 07:15 Not Reportable 11/30/18 07:15 Hem Pathologist Commnt No 11/30/18 07:15 Sodium 137 mmol/L (137-145) 11/30/18 07:15 Potassium 4.1 mmol/L (3.6-5.0) 11/30/18 07:15 Chloride 105.1 mmol/L (98-107) 11/30/18 07:15 Carbon Dioxide 18 mmol/L (22-30) L 11/30/18 07:15 18 mmol/L 11/30/18 07:15 BUN 17 mg/dL (7-17) 11/30/18 07:15 3.1 mg/dL (0.7-1.2) H 11/30/18 07:15 Estimated GFR 19 ml/min 11/30/18 07:15 5 % 11/30/18 07:15 Glucose 215 mg/dL (65-100) H 11/30/18 07:15 POC Glucose 239 (70-105) H 11/30/18 05:38 Lactic Acid 2.40 mmol/L (0.7-2.0) H* 11/25/18 16:05 Calcium 8.6 mg/dL (8.4-10.2) 11/30/18 07:15 Phosphorus 4.20 mg/dL (2.5-4.5) 11/30/18 07:15 Magnesium 1.70 mg/dL (1.7-2.3) 11/30/18 07:15 0.50 mg/dL (0.1-1.2) 11/25/18 15:22 AST 28 units/L (5-40) 11/25/18 15:22 ALT 27 units/L (7-56) 11/25/18 15:22 236 units/L (35-129) H 11/25/18 15:22 622 units/L (30-135) H 11/30/18 07:15 7.5 g/dL (6.3-8.2) 11/25/18 15:22 3.2 g/dL (3.9-5) L 11/25/18 15:22 0.7 % 11/25/18 15:22 Yellow (Yellow) 11/29/18 22:55 Slightly-cloudy (Clear) 11/29/18 22:55 5.0 (5.0-7.0) 11/29/18 22:55 Ur Specific [place] 1.009 (1.003-1.030) 11/29/18 22:55 30 mg/dl mg/dL (Negative) 11/29/18 22:55 Neg mg/dL (Negative) 11/29/18 22:55 Neg mg/dL (Negative) 11/29/18 22:55 Sm (Negative) 11/29/18 22:55 Neg (Negative) 11/29/18 22:55 Neg (Negative) 11/29/18 22:55 < 2.0 mg/dL (<2.0) 11/29/18 22:55 Ur Leukocyte Esterase Sm (Negative) 11/29/18 22:55 1.0 /HPF (0.0-6.0) 11/29/18 22:55 4.0 /HPF (0.0-6.0) 11/29/18 22:55 U Epithel Cells (Auto) 2.0 /HPF (0-13.0) 11/29/18 22:55 2+ /HPF (Negative) 11/29/18 22:55 Few /HPF 11/29/18 22:55 2+ /HPF 11/29/18 22:55 55.6 mg/dL (0.1-20.0) H 11/29/18 22:55 35 mmol/L 11/29/18 22:55 Vancomycin Trough 25.2 ug/mL (5.0-20.0) H 11/28/18 04:53 Active Medications - Current Medications Current Medications: Generic Name Dose Route Start Last Admin Trade Name Freq PRN Reason Stop Dose Admin Acetaminophen 650 mg 11/26/18 00:14 11/29/18 00:07 Tylenol PO 325 mg Q4H PRN Administration Pain MILD(1-3)/Fever >100.5/TANG Acetaminophen/Hydrocodone Bitart 1 each 11/26/18 15:00 11/29/18 00:07 [place] 5/325 PO 1 each Q4H PRN Administration Pain, Moderate (4-6) Cholecalciferol 1,000 unit 11/27/18 10:00 11/29/18 11:10 Vitamin D3 PO 1,000 unit QDAY VIOLETA Administration Dextrose 50 ml 11/26/18 17:17 D50w (25gm) Syringe IV PRN PRN Hypoglycemia Enoxaparin Sodium 30 mg 11/29/18 10:00 11/29/18 09:51 Lovenox SUB-Q 30 mg QDAY VIOLETA Administration Famotidine 20 mg 11/29/18 14:00 11/29/18 22:01 Pepcid PO 20 mg BID VIOLETA Administration Hydrocortisone Acetate 10 mg 11/26/18 22:00 11/29/18 22:00 Cortef PO 10 mg BID VIOLETA Administration Piperacillin Sod/Tazobactam Sod 2.25 gm in 50 mls @ 100 mls/hr 11/29/18 12:00 11/30/18 06:00 Zosyn/Ns 2.25 Gm/50ml IV 100 mls/hr Q6HR VIOLETA Administration Daptomycin 700 mg/ Sodium 100 mls @ 200 mls/hr 11/30/18 10:00 Chloride IV Q48H VIOLETA Protocol Sodium Chloride 1,000 mls @ 150 mls/hr 11/29/18 12:00 11/29/18 23:46 Nacl 0.9% 1000 Ml IV 150 mls/hr DIRECT VIOLETA Administration Insulin Glargine 70 units 11/27/18 16:25 11/29/18 22:45 Lantus SUB-Q 70 units QHS VIOLETA Administration Insulin Human Lispro 0 unit 11/26/18 18:00 11/30/18 06:03 Humalog SUB-Q 4 unit Q6HR VIOLETA Administration Protocol Lamotrigine 25 mg 11/26/18 22:00 11/29/18 22:01 Lamictal PO 25 mg BID VIOLETA Administration Levothyroxine Sodium 50 mcg 11/27/18 10:00 11/29/18 11:10 Synthroid PO 50 mcg QAM VIOLETA Administration Metoprolol Tartrate 50 mg 11/26/18 22:00 11/29/18 22:01 Lopressor PO 50 mg BID VIOLETA Administration Miscellaneous Medication 0.1 inch 11/26/18 22:00 Mometasone 0.1% (Nf) TP BID VIOLETA Morphine Sulfate 2 mg 11/26/18 15:00 11/27/18 18:58 Morphine IV 2 mg Q4H PRN Administration Pain , Severe (7-10) Ondansetron HCl 4 mg 11/26/18 00:14 Zofran IV Q4H PRN Nausea And Vomiting Pregabalin 75 mg 11/29/18 14:00 11/29/18 22:01 Lyrica PO 75 mg BID VIOLETA Administration Sodium Chloride 10 ml 11/26/18 10:00 11/29/18 22:09 Sodium Chloride Flush Syringe 10 Ml IV Not Given BID VIOLETA Sodium Chloride 10 ml 11/26/18 00:14 Sodium Chloride Flush Syringe 10 Ml IV PRN PRN LINE FLUSH
[2018-11-30] MEDS: NACL 0.9% 1000 ML 1,000 ML IV SCH ×2 (10:53→10:58)
[2018-11-30] MEDS: LOVENOX SUB-Q SCH (10:55)
[2018-11-30] MEDS: VITAMIN D3 PO SCH (10:55)
[2018-11-30] MEDS: LYRICA PO SCH ×2 (10:56→22:28)
[2018-11-30] MEDS: PEPCID PO SCH ×2 (10:56→22:28)
[2018-11-30] MEDS: CORTEF PO SCH ×2 (10:56→22:28)
[2018-11-30] MEDS: LaMICtal PO SCH ×2 (10:57→22:28)
[2018-11-30] MEDS: SYNTHROID PO SCH (10:57)
[2018-11-30] MEDS: SODIUM CHLORIDE FLUSH SYRINGE 10 ML IV SCH (11:06)
--- NOTE | 2018-11-30 12:16 | Progress Note ---
Assessment and Plan 1. Acute kidney injury: JOEL likley multifactorial in the setting of sepsis, hypotension and IV contrast. CT abdomen was negative for hydro. Renal function continue to decline. Continue IV fluids. Monitor renal function. Avoid nephrotoxic agents. Meds dosage based on GFR. 2. FEN: Metabolic acidosis, continue IV fluids. Monitor lytes. 3. Abdominal wall abscess: S/p I&D. 4. Sepsis: Followed by ID. 5. DM Type 2. 6. Seizures. 7. Meningioma. 8. Sleep apnea. 9. PUD. Subjective Date of service: 11/30/18 Interval history: Patient was seen and examined at the bedside. Objective - Vital Signs Vital signs: Vital Signs - 12hr 11/30/18 11/30/18 11/30/18 04:25 07:19 09:28 Temperature 100.3 F H 97.0 F L Pulse Rate 97 H 100 H Respiratory 18 16 Rate Blood Pressure 130/63 Blood Pressure 152/77 [Left] O2 Sat by Pulse 100 98 96 Oximetry - General Appearance General appearance: well-developed, well-nourished, appears stated age, obese, other (no distress) EENT: ATNC, PERRL, hearing intact Neck: supple Respiratory: Present: Clear to Ascultation Cardiology: regular, S1S2, no murmurs Gastrointestinal: normoactive bowel sounds, no tenderness, obese Integumentary: no rash, warm and dry Neurologic: other (able to move all 4 extrmities) Musculoskeletal: other (no edema) - Lab 11/30/18 07:15 11/30/18 07:15 Most recent lab results Calcium 8.6 mg/dL (8.4-10.2) 11/30/18 07:15 Phosphorus 4.20 mg/dL (2.5-4.5) 11/30/18 07:15 Magnesium 1.70 mg/dL (1.7-2.3) 11/30/18 07:15 55.6 mg/dL (0.1-20.0) H 11/29/18 22:55 35 mmol/L 11/29/18 22:55 Medications & Allergies - Medications Allergies/Adverse Reactions: Allergies erythromycin base [From Erythrocin] Allergy (Verified 11/26/18 06:03) Itching Penicillins Allergy (Verified 11/26/18 06:02) Rash Home Medications: Home Medications Medication Instructions Recorded Confirmed Last Taken Type Atorvastatin Calcium 40 mg PO BID 11/26/18 11/26/18 11/25/18 08:00 History Cholecalciferol Vit D3 [Vitamin D3 1,000 1000units PO QDAY 11/26/18 11/26/18 11/25/18 08:00 History 1,000 UNIT TAB] Eliquis 5 mg PO QDAY 11/26/18 11/26/18 Unknown History HYDROcodone/APAP 5-325 [[place] 1 each PO Q4HR PRN 11/26/18 11/26/18 Unknown History 5/325] Hydrocortisone [Cortef TAB] 10 mg PO BID 11/26/18 11/26/18 Unknown History Insulin Glargine,Hum.rec.anlog 60 unit SQ QHS 11/26/18 11/26/18 Unknown History [Lantus Solostar] Insulin Glargine,Hum.rec.anlog See Protocol SUB-Q QACHS 11/26/18 11/29/18 Unknown History [Lantus Solostar] Insulin Lispro Prot/Lispro 45 1000units SUB-Q BID 11/26/18 11/29/18 Unknown History [HumaLOG Mix 75/25 Vial] Lasix TAB 20 mg PO BID 11/26/18 11/26/18 Unknown History Levothyroxine [Synthroid] 50 mcg PO QAM 11/26/18 11/26/18 11/24/18 08:00 History Lispro Insulin [HumaLOG] See Protocol SUB-Q ACHS 11/26/18 11/29/18 11/25/18 History Metoprolol [Lopressor TAB] 50 mg PO BID 11/26/18 11/26/18 Unknown History Mometasone 0.1% (Nf) 0.1 units TP BID 11/26/18 11/29/18 Unknown History Pantoprazole [Protonix] 40 mg PO BID 11/26/18 11/26/18 Unknown History Petrolatum,White [Vaseline White 5 gm TP BID 11/26/18 11/26/18 Unknown History Petroleum] Pregabalin [Lyrica] 150 mg PO BID 11/26/18 11/26/18 11/25/18 08:00 History lamoTRIgine [LaMICtal] 25 mg PO BID 11/26/18 11/26/18 Unknown History Active Medications: Generic Name Dose Route Start Last Admin Trade Name Freq PRN Reason Stop Dose Admin Acetaminophen 650 mg 11/26/18 00:14 11/29/18 00:07 Tylenol PO 325 mg Q4H PRN Administration Pain MILD(1-3)/Fever >100.5/TANG Acetaminophen/Hydrocodone Bitart 1 each 11/26/18 15:00 11/29/18 00:07 [place] 5/325 PO 1 each Q4H PRN Administration Pain, Moderate (4-6) Cholecalciferol 1,000 unit 11/27/18 10:00 11/30/18 10:55 Vitamin D3 PO 1,000 unit QDAY VIOLETA Administration Dextrose 50 ml 11/26/18 17:17 D50w (25gm) Syringe IV PRN PRN Hypoglycemia Enoxaparin Sodium 30 mg 11/29/18 10:00 11/30/18 10:55 Lovenox SUB-Q 30 mg QDAY VIOLETA Administration Famotidine 10 mg 11/30/18 22:00 Pepcid PO BID VIOLETA Hydrocortisone Acetate 10 mg 11/26/18 22:00 11/30/18 10:56 Cortef PO 10 mg BID VIOLETA Administration Piperacillin Sod/Tazobactam Sod 2.25 gm in 50 mls @ 100 mls/hr 11/29/18 12:00 11/30/18 06:00 Zosyn/Ns 2.25 Gm/50ml IV 100 mls/hr Q6HR VIOLETA Administration Daptomycin 700 mg/ Sodium 100 mls @ 200 mls/hr 11/30/18 10:00 Chloride IV Q48H VIOLETA Protocol Sodium Chloride 1,000 mls @ 150 mls/hr 11/29/18 12:00 11/30/18 10:58 Nacl 0.9% 1000 Ml IV 150 mls/hr DIRECT VIOLETA Administration Insulin Glargine 70 units 11/27/18 16:25 11/29/18 22:45 Lantus SUB-Q 70 units QHS VIOLETA Administration Insulin Human Lispro 0 unit 11/26/18 18:00 11/30/18 06:03 Humalog SUB-Q 4 unit Q6HR VIOLETA Administration Protocol Lamotrigine 25 mg 11/26/18 22:00 11/30/18 10:57 Lamictal PO 25 mg BID VIOLETA Administration Levothyroxine Sodium 50 mcg 11/27/18 10:00 11/30/18 10:57 Synthroid PO 50 mcg QAM VIOLETA Administration Metoprolol Tartrate 50 mg 11/26/18 22:00 11/29/18 22:01 Lopressor PO 50 mg BID VIOLETA Administration Miscellaneous Medication 0.1 inch 11/26/18 22:00 Mometasone 0.1% (Nf) TP BID VIOLETA Morphine Sulfate 2 mg 11/26/18 15:00 11/27/18 18:58 Morphine IV 2 mg Q4H PRN Administration Pain , Severe (7-10) Ondansetron HCl 4 mg 11/26/18 00:14 Zofran IV Q4H PRN Nausea And Vomiting Pregabalin 75 mg 11/29/18 14:00 11/30/18 10:56 Lyrica PO 75 mg BID VIOLETA Administration Sodium Chloride 10 ml 11/26/18 10:00 11/30/18 11:06 Sodium Chloride Flush Syringe 10 Ml IV 10 ml BID VIOLETA Administration Sodium Chloride 10 ml 11/26/18 00:14 Sodium Chloride Flush Syringe 10 Ml IV PRN PRN LINE FLUSH
[2018-11-30] MEDS: TYLENOL PO PRN (20:12)
[2018-12-01] MEDS: LANTUS SUB-Q SCH
[2018-12-01 05:52] LABS: Mean Corpuscular HGB Conc 30 % (30-34); Mean Corpuscular Volume 77 fl (79-97); Red Blood Count 3.88 M/mm3 (3.65-5.03)
[2018-12-01 05:54] LABS: Hematocrit 29.9 % (30.3-42.9); Hemoglobin 8.8 gm/dl (10.1-14.3)
[2018-12-01 05:55] LABS: Platelet Count 621 K/mm3 (140-440)
[2018-12-01 06:06] LABS: Calcium 8.9 mg/dL (8.4-10.2)
[2018-12-01] MEDS: ZOSYN/NS 2.25 GM/50ML 2.25 GM/50 ML BAG IV SCH ×3 (06:33→12:48)
[2018-12-01] MEDS: CORTEF PO SCH ×2 (09:49→22:09)
[2018-12-01] MEDS: LYRICA PO SCH (09:50)
[2018-12-01] MEDS: PEPCID PO SCH ×2 (09:50→22:09)
[2018-12-01] MEDS: VITAMIN D3 PO SCH (09:50)
[2018-12-01] MEDS: LaMICtal PO SCH ×2 (09:50→22:09)
[2018-12-01] MEDS: LOVENOX SUB-Q SCH (09:51)
[2018-12-01] MEDS: SYNTHROID PO SCH (09:51)
[2018-12-01] MEDS: LOPRESSOR PO SCH ×3 (09:54→22:10)
[2018-12-01] MEDS: SODIUM CHLORIDE FLUSH SYRINGE 10 ML IV SCH ×3 (09:56→22:12)
--- NOTE | 2018-12-01 10:30 | Progress Note ---
Assessment and Plan 1. Acute kidney injury: JOEL likley multifactorial in the setting of sepsis, hypotension and IV contrast. CT abdomen was negative for hydro. Creatinine leveled off. Continue IV fluids. Monitor renal function. Avoid nephrotoxic agents. Meds dosage based on GFR. 2. FEN: Metabolic acidosis, continue IV fluids. Monitor lytes. 3. Abdominal wall abscess: S/p I&D. 4. Sepsis: Followed by ID. 5. DM Type 2. 6. Seizures. 7. Meningioma. 8. Sleep apnea. 9. PUD. Subjective Date of service: 12/01/18 Interval history: Patient was seen and examined at the bedside. Objective - Vital Signs Vital signs: Vital Signs - 12hr 12/01/18 12/01/18 12/01/18 00:15 00:22 04:04 Temperature 98.7 F 99.3 F Pulse Rate 84 98 H Respiratory 20 20 Rate Blood Pressure 104/41 153/77 O2 Sat by Pulse 95 100 Oximetry 12/01/18 12/01/18 12/01/18 07:17 07:46 09:54 Temperature 98.8 F Pulse Rate 109 H 118 H Respiratory 28 H Rate Blood Pressure 174/85 150/87 O2 Sat by Pulse 99 97 Oximetry 12/01/18 10:10 Temperature Pulse Rate 118 H Respiratory Rate Blood Pressure 150/87 O2 Sat by Pulse Oximetry - General Appearance General appearance: well-developed, well-nourished, appears stated age, obese, other (no distress) EENT: ATNC Neck: supple Respiratory: Present: Clear to Ascultation Cardiology: regular, S1S2, no murmurs Gastrointestinal: normoactive bowel sounds, no tenderness, obese Integumentary: no rash Neurologic: other (able to move extremities, conversing) Musculoskeletal: other (trace LE edema) - Lab 12/01/18 05:24 12/01/18 05:24 Most recent lab results Calcium 8.9 mg/dL (8.4-10.2) 12/01/18 05:24 Phosphorus 4.20 mg/dL (2.5-4.5) 11/30/18 07:15 Magnesium 1.70 mg/dL (1.7-2.3) 11/30/18 07:15 55.6 mg/dL (0.1-20.0) H 11/29/18 22:55 35 mmol/L 11/29/18 22:55 Medications & Allergies - Medications Allergies/Adverse Reactions: Allergies erythromycin base [From Erythrocin] Allergy (Verified 11/26/18 06:03) Itching Penicillins Allergy (Verified 11/26/18 06:02) Rash Home Medications: Home Medications Medication Instructions Recorded Confirmed Last Taken Type Atorvastatin Calcium 40 mg PO BID 11/26/18 11/26/18 11/25/18 08:00 History Cholecalciferol Vit D3 [Vitamin D3 1,000 1000units PO QDAY 11/26/18 11/26/18 11/25/18 08:00 History 1,000 UNIT TAB] Eliquis 5 mg PO QDAY 11/26/18 11/26/18 Unknown History HYDROcodone/APAP 5-325 [[place] 1 each PO Q4HR PRN 11/26/18 11/26/18 Unknown History 5/325] Hydrocortisone [Cortef TAB] 10 mg PO BID 11/26/18 11/26/18 Unknown History Insulin Glargine,Hum.rec.anlog 60 unit SQ QHS 11/26/18 11/26/18 Unknown History [Lantus Solostar] Insulin Glargine,Hum.rec.anlog See Protocol SUB-Q QACHS 11/26/18 11/29/18 Unknown History [Lantus Solostar] Insulin Lispro Prot/Lispro 45 1000units SUB-Q BID 11/26/18 11/29/18 Unknown History [HumaLOG Mix 75/25 Vial] Lasix TAB 20 mg PO BID 11/26/18 11/26/18 Unknown History Levothyroxine [Synthroid] 50 mcg PO QAM 11/26/18 11/26/18 11/24/18 08:00 History Lispro Insulin [HumaLOG] See Protocol SUB-Q ACHS 11/26/18 11/29/18 11/25/18 History Metoprolol [Lopressor TAB] 50 mg PO BID 11/26/18 11/26/18 Unknown History Mometasone 0.1% (Nf) 0.1 units TP BID 11/26/18 11/29/18 Unknown History Pantoprazole [Protonix] 40 mg PO BID 11/26/18 11/26/18 Unknown History Petrolatum,White [Vaseline White 5 gm TP BID 11/26/18 11/26/18 Unknown History Petroleum] Pregabalin [Lyrica] 150 mg PO BID 11/26/18 11/26/18 11/25/18 08:00 History lamoTRIgine [LaMICtal] 25 mg PO BID 11/26/18 11/26/18 Unknown History Active Medications: Generic Name Dose Route Start Last Admin Trade Name Freq PRN Reason Stop Dose Admin Acetaminophen 650 mg 11/26/18 00:14 11/30/18 20:12 Tylenol PO 650 mg Q4H PRN Administration Pain MILD(1-3)/Fever >100.5/TANG Acetaminophen/Hydrocodone Bitart 1 each 11/26/18 15:00 11/29/18 00:07 [place] 5/325 PO 1 each Q4H PRN Administration Pain, Moderate (4-6) Cholecalciferol 1,000 unit 11/27/18 10:00 12/01/18 09:50 Vitamin D3 PO 1,000 unit QDAY VIOLETA Administration Dextrose 50 ml 11/26/18 17:17 D50w (25gm) Syringe IV PRN PRN Hypoglycemia Enoxaparin Sodium 30 mg 11/29/18 10:00 12/01/18 09:51 Lovenox SUB-Q 30 mg QDAY VIOLETA Administration Famotidine 10 mg 11/30/18 22:00 12/01/18 09:50 Pepcid PO 10 mg BID VIOLETA Administration Hydrocortisone Acetate 10 mg 11/26/18 22:00 12/01/18 09:49 Cortef PO 10 mg BID VIOLETA Administration Piperacillin Sod/Tazobactam Sod 2.25 gm in 50 mls @ 100 mls/hr 11/29/18 12:00 12/01/18 06:33 Zosyn/Ns 2.25 Gm/50ml IV 100 mls/hr Q6HR VIOLETA Administration Daptomycin 700 mg/ Sodium 100 mls @ 200 mls/hr 11/30/18 10:00 11/30/18 10:00 Chloride IV 200 mls/hr Q48H VIOLETA Administration Protocol Sodium Chloride 1,000 mls @ 150 mls/hr 11/29/18 12:00 11/30/18 10:58 Nacl 0.9% 1000 Ml IV 150 mls/hr DIRECT VIOLETA Administration Insulin Glargine 70 units 11/27/18 16:25 12/01/18 00:00 Lantus SUB-Q 70 units QHS VIOLETA Administration Insulin Human Lispro 0 unit 11/26/18 18:00 11/30/18 18:26 Humalog SUB-Q 3 unit Q6HR VIOLETA Administration Protocol Lamotrigine 25 mg 11/26/18 22:00 12/01/18 09:50 Lamictal PO 25 mg BID VIOLETA Administration Levothyroxine Sodium 50 mcg 11/27/18 10:00 12/01/18 09:51 Synthroid PO 50 mcg QAM VIOLETA Administration Metoprolol Tartrate 50 mg 11/26/18 22:00 12/01/18 10:10 Lopressor PO 50 mg BID VIOLETA Administration Miscellaneous Medication 0.1 inch 11/26/18 22:00 Mometasone 0.1% (Nf) TP BID [facility] Morphine Sulfate 2 mg 11/26/18 15:00 11/27/18 18:58 Morphine IV 2 mg Q4H PRN Administration Pain , Severe (7-10) Ondansetron HCl 4 mg 11/26/18 00:14 Zofran IV Q4H PRN Nausea And Vomiting Pregabalin 75 mg 11/29/18 14:00 12/01/18 09:50 Lyrica PO 75 mg BID VIOLETA Administration Sodium Chloride 10 ml 11/26/18 10:00 12/01/18 10:11 Sodium Chloride Flush Syringe 10 Ml IV 10 ml BID VIOLETA Administration Sodium Chloride 10 ml 11/26/18 00:14 Sodium Chloride Flush Syringe 10 Ml IV PRN PRN LINE FLUSH
[2018-12-01] MEDS: HumaLOG SUB-Q SCH ×4 (12:47→20:38)
--- NOTE | 2018-12-01 12:49 | XRay Report ---
CHEST 1 VIEW 12/01/2018 12:02 PM INDICATION / CLINICAL INFORMATION: dyspnea. COMPARISON: 11/25/18 FINDINGS: SUPPORT DEVICES: None. HEART / MEDIASTINUM: Mildly enlarged but stable. LUNGS / PLEURA: Bilateral pulmonary opacities and small effusions are unchanged. No pneumothorax. ADDITIONAL FINDINGS: No significant additional findings. IMPRESSION: 1. No significant change. Signer Name: Otoniel Simmons MD Signed: 12/01/2018 12:44 PM Workstation Name: [id number]
--- NOTE | 2018-12-01 13:00 | Progress Note ---
Assessment and Plan Cultures: 11/25/18 BCx - NGTD 11/25/18 Wound CX: light growth of skin otoniel 11/26/18 OR Wound CX: normal skin otoniel A/P: Ms. Estrada is a 53-year-old female with a past medical history of hypertension, diabetes, history of being bedbound presents with sepsis secondary to abdominal wall abscess 1. Sepsis: not better, still fever and increasing leukocytosis (on IV steroids); secondary to abdominal wall abscess. Persistent fever unclear possibly due to ? drug fever secondary to zosyn (h/o penicillin allergy). Other possibilities ?UTI, ?bilateral groin L>R candidal intertrigo with secondary bacterial infection. Repeat CXR negative. 2. Abdominal wall abscess in a patient with morbid obesity: S/p incision and drainage, washout abdominal wall abscess with wound vac placement 11/29/18. Large amount of purulent drainage within large abscess cavity. Fascia and subcutaneous tissue healthy. On daptomycin and pip-tazo. 3. DM2 4. JOEL: Antibiotics renally dosed. Continue to monitor serum creatinine. Discontinued vancomycin. Start Daptomycin. CK ordered. 5. Presumed bilateral groin L>R candidal intertrigo with secondary bacterial infection. 6. AMS ? pain meds Recs: Repeat blood cultures and UA/urine culture Continue Daptomycin every 48 hours Repeat CK as it was elevated at 622-->265 Stop pip-tazo ? drug fever Add fluconazole 200 mg q day due to presumed bilateral groin Candidal intertrigo. Add aztreonam (renally adjusted) and metronidazole for now to cover secondary bacterial infection. Monitor fever and leukocytosis If mentation is not better consider neuro consult Dr. Pathak is rounding on Sunday. Linda Warner MD [facility] ([facility]) Office [phone] Subjective Date of service: 12/01/18 Principal diagnosis: abdominal wall abscess Interval history: Patient remains somnolent, only opened eyes after tactile stimuli. No fever. Still fever 100.4. Objective - Exam Narrative Exam: Constitutional: Somnolent open eyes after tactile stimuli in NAD Head, Ears, Nose: Normocephalic, atraumatic. External ears, nose normal Eyes: Conjunctivae/corneas clear. No icterus. No ptosis. Neck: Supple, no meningeal signs Oral: fair dentition, moist mucous membranes Cardiovascular: S1, S2 normal. Normal rhythm Respiratory: Good air entry, clear to auscultation bilaterally GI: non tender large pannus left wound VAC no leak, left groin skin sloughing/edema Musculoskeletal: yanick pedal edema Skin: No rash or abscess Hem/Lymphatic: No palpable cervical or supraclavicular nodes. No lymphangitis Psych: no agitation Neurological: somnolent - Constitutional Vitals: Vital Signs Temp Pulse Resp BP Pulse Ox 98.8 F 118 H 28 H 150/87 97 12/01/18 07:17 12/01/18 10:10 12/01/18 07:17 12/01/18 10:10 12/01/18 07:46 Temperature -Last 24 Hours Temperature 98.8 F Temperature 99.3 F Temperature 98.7 F Temperature 100.4 F Temperature 97.7 F - Labs CBC & Chem 7: 12/01/18 05:24 12/01/18 05:24 Labs: Abnormal lab results 11/30/18 12/01/18 12/01/18 Range/Units 16:40 00:24 05:24 WBC 16.4 H (4.5-11.0) K/mm3 Hgb 8.8 L (10.1-14.3) gm/dl Hct 29.9 L (30.3-42.9) % MCV 77 L (79-97) fl MCH 23 L (28-32) pg RDW 16.0 H (13.2-15.2) % Plt Count 621 H (140-440) K/mm3 Chloride (98-107) mmol/L Carbon Dioxide (22-30) mmol/L BUN (7-17) mg/dL Creatinine (0.7-1.2) mg/dL Glucose (65-100) mg/dL POC Glucose 193 H 164 H (70-105) Total Creatine Kinase (30-135) units/L 12/01/18 12/01/18 12/01/18 Range/Units 05:24 06:35 07:20 WBC (4.5-11.0) K/mm3 Hgb (10.1-14.3) gm/dl Hct (30.3-42.9) % MCV (79-97) fl MCH (28-32) pg RDW (13.2-15.2) % Plt Count (140-440) K/mm3 Chloride 108.9 H (98-107) mmol/L Carbon Dioxide 18 L (22-30) mmol/L BUN 20 H (7-17) mg/dL Creatinine 3.2 H (0.7-1.2) mg/dL Glucose 152 H (65-100) mg/dL POC Glucose 162 H 159 H (70-105) Total Creatine Kinase 265 H (30-135) units/L 12/01/18 Range/Units 12:30 WBC (4.5-11.0) K/mm3 Hgb (10.1-14.3) gm/dl Hct (30.3-42.9) % MCV (79-97) fl MCH (28-32) pg RDW (13.2-15.2) % Plt Count (140-440) K/mm3 Chloride (98-107) mmol/L Carbon Dioxide (22-30) mmol/L BUN (7-17) mg/dL Creatinine (0.7-1.2) mg/dL Glucose (65-100) mg/dL POC Glucose 202 H (70-105) Total Creatine Kinase (30-135) units/L
--- NOTE | 2018-12-01 13:05 | Progress Note ---
Assessment and Plan Assessment and plan: Patient is a 53-year-old female with a past medical history of hypertension, diabetes, seizures, meningioma, sarcoidosis, hypothyroidism, hyperlipidemia, sleep apnea, duodenal ulcer, morbid obesity, history of being bedbound who initially presented with abdominal pain and drainage and was noted ot have area of indurating with inflammation and ill-defined fluid and gas bubbles. On Evaluation of PEG tube site it was noted to have induration Febrile during admission to 100.9 with a leukocytosis of 15. Blood cultures from 11/25 are currently pending. She is currently receiving vancomycin and pip- tazo. Chest x-ray with mild fluid overload. Abdominal CT with fluids/gas bubble in the abdominal wall. She has been evaluated by general surgery and was taken for drainage in the OR. Copious pus noted with tunnelling abscess. s/p OR drainage 11/26/18 Large abdominal wall abscess with cavity tunnelling towards the right lower abdomen for about 12 inches. Large amount of purulent fluid. Abscess cavity extends to fascia. Two small metallic foreign objects found in abscess cavity likely related to old PEG tube CT A/P IMPRESSION: 1. Area of induration with inflammation and ill-defined fluid and gas bubbles in the anterior abdominal wall with the epicenter in the left upper quadrant possibly related to previous gastrostomy tube. No discrete drainable fluid collection at this time CT head: IMPRESSION: No acute intracranial process is identified. Moderate bifrontal encephalomalacia is identified which is probably secondary to surgery. There is also suggestion of a left parafalcine extra-axial mass which probably represents a meningioma. 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 Sepsis secondary to Abdominal abscess- POD 2 OR drainage JOEL secondary to vasomotor nephropathy with unerlying contrast induced nephropathy hypertension Diabetes Mellitus With hyperglycmia Chronic Focal infarct in the right occipital lobe Seizures meningioma Sarcoidosis hypothyroidism hyperlipidemia Sleep apnea Duodenal ulcer morbid obesity Acute Encephalopathy- worsening per daughter. Plan Supportive care Stop IV fluids and obtain chest xray. Reviewed, bilateral lobar. Discussed with Last Chalker avoid nephrtoxic meds ID input noted Abx per ID. Vanc HELD Follow up wound cultures Adjust Insulin dose, patient also on Hydrocortizone making BG management difficult CT head per daughters request due to changing mental status, Daughter understands that we do not have Neurosurgery. Out Patient Neurosurgery follow up considering probably reoccurrance of mengioma in the setting of some mental status changes intermittently Insulin FOR BETTER CONTROL OF BG. Follow cultures Continue appropriate outpatient medications DVT prophylaxis Continue current care, Creatnine appears to be coming to a crest at the [place]. History Interval history: Patient is seen and examined today, no new complaints, wound vac in place, resting comfortable, per nursing staff, patient with increased RR temporary. Hospitalist Physical - Physical exam Narrative exam: General Apperance: The patient sitting in bed mild respiratory distress HEENT: Normocephalic, atraumatic. Pupils equally round and reactive to light, extraocular movement intact, and no sclericterus or JVD or thyromegaly or nodule. Neck supple, no carotid bruit, mucous membranes moist, no exudate or erythema Heart: S1-S2, regular is rhythm Lungs: crackles to auscultation bilaterally, Abdomen: Positive bowel sounds, soft, tender in LUQ, + erythema,wound vac noted in place PEG tube site, non distended, no organomegaly Extremities: trace edema, no cyanosis clubbing Skin: no rash, nodule, warm and dry Neuro:CN 2 -12 intact,speech is fluent - Constitutional Vitals: Temp Pulse Resp BP Pulse Ox 98.8 F 118 H 28 H 150/87 97 12/01/18 07:17 12/01/18 10:10 12/01/18 07:17 12/01/18 10:10 12/01/18 07:46 Results - Labs CBC & Chem 7: 12/01/18 05:24 12/01/18 05:24 Labs: Laboratory Last Values WBC 16.4 K/mm3 (4.5-11.0) H 12/01/18 05:24 RBC 3.88 M/mm3 (3.65-5.03) 12/01/18 05:24 Hgb 8.8 gm/dl (10.1-14.3) L 12/01/18 05:24 Hct 29.9 % (30.3-42.9) L 12/01/18 05:24 MCV 77 fl (79-97) L 12/01/18 05:24 MCH 23 pg (28-32) L 12/01/18 05:24 MCHC 30 % (30-34) 12/01/18 05:24 RDW 16.0 % (13.2-15.2) H 12/01/18 05:24 Plt Count 621 K/mm3 (140-440) H 12/01/18 05:24 Lymph % (Auto) Conduit Bender 11/26/18 04:15 [place] % (Auto) Conduit Bender 11/26/18 04:15 Eos % (Auto) Conduit Bender 11/26/18 04:15 Baso % (Auto) Conduit Bender 11/26/18 04:15 Lymph # Conduit Bender 11/26/18 04:15 [place] # Conduit Bender 11/26/18 04:15 Eos # Conduit Bender 11/26/18 04:15 Baso # Conduit Bender 11/26/18 04:15 Add Manual Diff Complete 11/30/18 07:15 Total Counted 100 11/30/18 07:15 Seg Neutrophils % Conduit Bender 11/26/18 04:15 Seg Neuts % (Manual) 64.0 % (40.0-70.0) 11/30/18 07:15 6.0 % 11/30/18 07:15 15.0 % (13.4-35.0) 11/30/18 07:15 Reactive Lymphs % (Man) 0 % 11/30/18 07:15 7.0 % (0.0-7.3) 11/30/18 07:15 2.0 % (0.0-4.3) 11/30/18 07:15 0 % (0.0-1.8) 11/30/18 07:15 3.0 % 11/30/18 07:15 2.0 % 11/30/18 07:15 1.0 % 11/30/18 07:15 0 % 11/30/18 07:15 Nucleated RBC % Not Reportable 11/30/18 07:15 Seg Neutrophils # Conduit Bender 11/26/18 04:15 Seg Neutrophils # Man 8.3 K/mm3 (1.8-7.7) H 11/30/18 07:15 Band Neutrophils # 0.8 K/mm3 11/30/18 07:15 2.0 K/mm3 (1.2-5.4) 11/30/18 07:15 Abs React Lymphs (Man) 0.0 K/mm3 11/30/18 07:15 0.9 K/mm3 (0.0-0.8) H 11/30/18 07:15 0.3 K/mm3 (0.0-0.4) 11/30/18 07:15 0.0 K/mm3 (0.0-0.1) 11/30/18 07:15 0.4 K/mm3 11/30/18 07:15 0.3 K/mm3 11/30/18 07:15 0.1 K/mm3 11/30/18 07:15 Blast Cells # 0.0 K/mm3 11/30/18 07:15 WBC Morphology Not Reportable 11/30/18 07:15 Hypersegmented Neuts Not Reportable 11/30/18 07:15 Hyposegmented Neuts Not Reportable 11/30/18 07:15 Hypogranular Neuts Not Reportable 11/30/18 07:15 Not Reportable 11/30/18 07:15 Not Reportable 11/30/18 07:15 Not Reportable 11/30/18 07:15 Not Reportable 11/30/18 07:15 Not Reportable 11/30/18 07:15 Not Reportable 11/30/18 07:15 Consistent w auto 11/30/18 07:15 Not Reportable 11/30/18 07:15 Plt Clumps, EDTA Not Reportable 11/30/18 07:15 Not Reportable 11/30/18 07:15 Not Reportable 11/30/18 07:15 Not Reportable 11/30/18 07:15 Plt Morphology Comment Not Reportable 11/30/18 07:15 RBC Morphology Not Reportable 11/30/18 07:15 Dimorphic RBCs Not Reportable 11/30/18 07:15 Not Reportable 11/30/18 07:15 1+ 11/30/18 07:15 Not Reportable 11/30/18 07:15 1+ 11/30/18 07:15 1+ 11/30/18 07:15 Not Reportable 11/30/18 07:15 Not Reportable 11/30/18 07:15 Not Reportable 11/30/18 07:15 Not Reportable 11/30/18 07:15 Not Reportable 11/30/18 07:15 Not Reportable 11/30/18 07:15 Not Reportable 11/30/18 07:15 Not Reportable 11/30/18 07:15 Not Reportable 11/30/18 07:15 Not Reportable 11/30/18 07:15 Not Reportable 11/30/18 07:15 Not Reportable 11/30/18 07:15 Not Reportable 11/30/18 07:15 Not Reportable 11/30/18 07:15 Acanthocytes (Spur) Not Reportable 11/30/18 07:15 Rouleaux Not Reportable 11/30/18 07:15 Not Reportable 11/30/18 07:15 Not Reportable 11/30/18 07:15 Not Reportable 11/30/18 07:15 Not Reportable 11/30/18 07:15 Hem Pathologist Commnt No 11/30/18 07:15 Sodium 139 mmol/L (137-145) 12/01/18 05:24 Potassium 4.6 mmol/L (3.6-5.0) 12/01/18 05:24 Chloride 108.9 mmol/L (98-107) H 12/01/18 05:24 Carbon Dioxide 18 mmol/L (22-30) L 12/01/18 05:24 17 mmol/L 12/01/18 05:24 BUN 20 mg/dL (7-17) H 12/01/18 05:24 3.2 mg/dL (0.7-1.2) H 12/01/18 05:24 Estimated GFR 18 ml/min 12/01/18 05:24 6 % 12/01/18 05:24 Glucose 152 mg/dL (65-100) H 12/01/18 05:24 POC Glucose 202 (70-105) H 12/01/18 12:30 Lactic Acid 2.40 mmol/L (0.7-2.0) H* 11/25/18 16:05 Calcium 8.9 mg/dL (8.4-10.2) 12/01/18 05:24 Phosphorus 4.20 mg/dL (2.5-4.5) 11/30/18 07:15 Magnesium 1.70 mg/dL (1.7-2.3) 11/30/18 07:15 0.50 mg/dL (0.1-1.2) 11/25/18 15:22 AST 28 units/L (5-40) 11/25/18 15:22 ALT 27 units/L (7-56) 11/25/18 15:22 236 units/L (35-129) H 11/25/18 15:22 265 units/L (30-135) H 12/01/18 05:24 7.5 g/dL (6.3-8.2) 11/25/18 15:22 3.2 g/dL (3.9-5) L 11/25/18 15:22 0.7 % 11/25/18 15:22 Yellow (Yellow) 11/29/18 22:55 Slightly-cloudy (Clear) 11/29/18 22:55 5.0 (5.0-7.0) 11/29/18 22:55 Ur Specific [place] 1.009 (1.003-1.030) 11/29/18 22:55 30 mg/dl mg/dL (Negative) 11/29/18 22:55 Neg mg/dL (Negative) 11/29/18 22:55 Neg mg/dL (Negative) 11/29/18 22:55 Sm (Negative) 11/29/18 22:55 Neg (Negative) 11/29/18 22:55 Neg (Negative) 11/29/18 22:55 < 2.0 mg/dL (<2.0) 11/29/18 22:55 Ur Leukocyte Esterase Sm (Negative) 11/29/18 22:55 1.0 /HPF (0.0-6.0) 11/29/18 22:55 4.0 /HPF (0.0-6.0) 11/29/18 22:55 U Epithel Cells (Auto) 2.0 /HPF (0-13.0) 11/29/18 22:55 2+ /HPF (Negative) 11/29/18 22:55 Few /HPF 11/29/18 22:55 2+ /HPF 11/29/18 22:55 55.6 mg/dL (0.1-20.0) H 11/29/18 22:55 35 mmol/L 11/29/18 22:55 Vancomycin Trough 25.2 ug/mL (5.0-20.0) H 11/28/18 04:53 Active Medications - Current Medications Current Medications: Generic Name Dose Route Start Last Admin Trade Name Freq PRN Reason Stop Dose Admin Acetaminophen 650 mg 11/26/18 00:14 11/30/18 20:12 Tylenol PO 650 mg Q4H PRN Administration Pain MILD(1-3)/Fever >100.5/TANG Acetaminophen/Hydrocodone Bitart 1 each 11/26/18 15:00 11/29/18 00:07 [place] 5/325 PO 1 each Q4H PRN Administration Pain, Moderate (4-6) Albuterol 2.5 mg 12/01/18 14:00 Proventil IH Q6HRT VIOLETA Cholecalciferol 1,000 unit 11/27/18 10:00 12/01/18 09:50 Vitamin D3 PO 1,000 unit QDAY VIOLETA Administration Dextrose 50 ml 11/26/18 17:17 D50w (25gm) Syringe IV PRN PRN Hypoglycemia Enoxaparin Sodium 30 mg 11/29/18 10:00 12/01/18 09:51 Lovenox SUB-Q 30 mg QDAY VIOLETA Administration Famotidine 10 mg 11/30/18 22:00 12/01/18 09:50 Pepcid PO 10 mg BID VIOLETA Administration Hydrocortisone Acetate 10 mg 11/26/18 22:00 12/01/18 09:49 Cortef PO 10 mg BID VIOLETA Administration Piperacillin Sod/Tazobactam Sod 2.25 gm in 50 mls @ 100 mls/hr 11/29/18 12:00 12/01/18 12:48 Zosyn/Ns 2.25 Gm/50ml IV 100 mls/hr Q6HR VIOLETA Administration Daptomycin 700 mg/ Sodium 100 mls @ 200 mls/hr 11/30/18 10:00 11/30/18 10:00 Chloride IV 200 mls/hr Q48H VIOLETA Administration Protocol Insulin Glargine 70 units 11/27/18 16:25 12/01/18 00:00 Lantus SUB-Q 70 units QHS VIOLETA Administration Insulin Human Lispro 0 unit 11/26/18 18:00 12/01/18 12:47 Humalog SUB-Q 4 unit Q6HR VIOLETA Administration Protocol Lamotrigine 25 mg 11/26/18 22:00 12/01/18 09:50 Lamictal PO 25 mg BID VIOLETA Administration Levothyroxine Sodium 50 mcg 11/27/18 10:00 12/01/18 09:51 Synthroid PO 50 mcg QAM VIOLETA Administration Metoprolol Tartrate 50 mg 11/26/18 22:00 12/01/18 10:10 Lopressor PO 50 mg BID VIOLETA Administration Miscellaneous Medication 0.1 inch 11/26/18 22:00 Mometasone 0.1% (Nf) TP BID VIOLETA Morphine Sulfate 2 mg 11/26/18 15:00 11/27/18 18:58 Morphine IV 2 mg Q4H PRN Administration Pain , Severe (7-10) Ondansetron HCl 4 mg 11/26/18 00:14 Zofran IV Q4H PRN Nausea And Vomiting Pregabalin 75 mg 11/29/18 14:00 12/01/18 09:50 Lyrica PO 75 mg BID VIOLETA Administration Sodium Chloride 10 ml 11/26/18 10:00 12/01/18 10:11 Sodium Chloride Flush Syringe 10 Ml IV 10 ml BID VIOLETA Administration Sodium Chloride 10 ml 11/26/18 00:14 Sodium Chloride Flush Syringe 10 Ml IV PRN PRN LINE FLUSH
[2018-12-01] MEDS: PROVENTIL IH SCH ×2 (13:18→20:19)
[2018-12-01] MEDS: FLAGYL 500 MG/100 ML 500 MG/100 ML BAG IV SCH ×2 (15:37→22:09)
[2018-12-01] MEDS: DIFLUCAN 200 MG/100 ML BAG IV SCH (16:23)
[2018-12-01] MEDS: AZACTAM/NS 1 GM/50 ML 1 GM/50 ML VIAL IV SCH ×2 (18:01→22:13)
[2018-12-01] MEDS: NORCO 5/325 PO PRN (22:19)
[2018-12-02] MEDS: HumaLOG SUB-Q SCH ×5 (00:14→23:22)
[2018-12-02] MEDS: LYRICA PO SCH ×3 (00:15→22:31)
[2018-12-02] MEDS: LANTUS SUB-Q SCH ×2 (00:16→23:39)
[2018-12-02] MEDS: PROVENTIL IH SCH ×4 (03:20→20:34)
[2018-12-02 05:21] LABS: Hematocrit 24.5 % (30.3-42.9); Hemoglobin 7.8 gm/dl (10.1-14.3); Mean Corpuscular HGB Conc 32 % (30-34); Mean Corpuscular Volume 75 fl (79-97); Platelet Count 564 K/mm3 (140-440); Red Blood Count 3.27 M/mm3 (3.65-5.03); Red Cell Distribution Width 15.9 % (13.2-15.2)
[2018-12-02] MEDS: AZACTAM/NS 1 GM/50 ML 1 GM/50 ML VIAL IV SCH ×3 (05:25→23:12)
[2018-12-02 05:35] LABS: Calcium 8.6 mg/dL (8.4-10.2)
[2018-12-02] MEDS: FLAGYL 500 MG/100 ML 500 MG/100 ML BAG IV SCH ×3 (06:22→22:26)
[2018-12-02 06:53] LABS: Bilirubin,Urine NEG (Negative); Blood,Urine SM (Negative); Color,Urine Yellow (Yellow); Protein,Urine <15 mg/dL mg/dL (Negative); Urobilinogen,Urine < 2.0 mg/dL (<2.0)
[2018-12-02] MEDS: PEPCID PO SCH ×2 (09:55→22:31)
[2018-12-02] MEDS: LOVENOX SUB-Q SCH (09:55)
[2018-12-02] MEDS: DIFLUCAN 200 MG/100 ML BAG IV SCH (09:55)
[2018-12-02] MEDS: SYNTHROID PO SCH (09:56)
[2018-12-02] MEDS: LaMICtal PO SCH ×2 (09:56→22:31)
[2018-12-02] MEDS: CORTEF PO SCH ×2 (09:56→22:31)
[2018-12-02] MEDS: VITAMIN D3 PO SCH (09:57)
[2018-12-02] MEDS: SODIUM CHLORIDE FLUSH SYRINGE 10 ML IV SCH ×2 (09:57→22:32)
[2018-12-02] MEDS ORDERED: KIONEX PO ONE (10:00)
[2018-12-02] MEDS: LOPRESSOR PO SCH ×3 (10:05→23:46)
--- NOTE | 2018-12-02 10:53 | Progress Note ---
Assessment and Plan Cultures: 11/25/18 BCx - NGTD 11/25/18 Wound CX: light growth of skin otoniel 11/26/18 OR Wound CX: normal skin otoniel A/P: Ms. Estrada is a 53-year-old female with a past medical history of hypertension, diabetes, history of being bedbound presents with sepsis secondary to abdominal wall abscess 1. Sepsis: not better, still fever and increasing leukocytosis (on IV steroids); secondary to abdominal wall abscess. Persistent fever unclear possibly due to ? drug fever secondary to zosyn (h/o penicillin allergy). Other possibilities ?UTI, ?bilateral groin L>R candidal intertrigo with secondary bacterial infection. Repeat CXR negative. 2. Abdominal wall abscess in a patient with morbid obesity: S/p incision and drainage, washout abdominal wall abscess with wound vac placement 11/29/18. Large amount of purulent drainage within large abscess cavity. Fascia and subcutaneous tissue healthy. On daptomycin and pip-tazo. 3. DM2 4. JOEL: Antibiotics renally dosed. Continue to monitor serum creatinine. D iscontinued vancomycin. Start Daptomycin. CK ordered. 5. Presumed bilateral groin L>R candidal intertrigo with secondary bacterial infection. 6. AMS ? pain meds, uremia Recs: Repeat blood cultures and UA/urine culture Continue Daptomycin every 48 hours Repeat CK as it was elevated at 622-->265 continue fluconazole 200 mg q day due to presumed bilateral groin Candidal i ntertrigo. continue aztreonam (renally adjusted) and metronidazole for now to cover secondary bacterial infection. Monitor fever and leukocytosis Pauline Novoa NP [facility] M: [phone] O:[phone] Subjective Date of service: 12/02/18 Principal diagnosis: abdominal wall abscess Interval history: Patient see and examined. Asleep, easy to arouse. Slow to respond to questions. Follows simple commands. Objective - Exam Narrative Exam: Constitutional: Asleep. Easy to arouse. Slow to respond to questions. Follows simple commands. Head, Ears, Nose: Normocephalic, atraumatic. External ears, nose normal Eyes: Conjunctivae/corneas clear. No icterus. No ptosis. Neck: Supple, no meningeal signs Oral: fair dentition, moist mucous membranes Cardiovascular: S1, S2 normal. Normal rhythm Respiratory: Good air entry, clear to auscultation bilaterally GI: tender due to surgery. +wound Vac Musculoskeletal: No pedal edema, Skin: No rash or abscess Hem/Lymphatic: No palpable cervical or supraclavicular nodes. No lymphangitis Psych: calm Neurological: Moves all extremities, no focal defects - Constitutional Vitals: Vital Signs Temp Pulse Resp BP Pulse Ox 98.6 F 99 H 44 H 116/62 97 12/02/18 10:10 12/02/18 10:10 12/02/18 10:10 12/02/18 10:10 12/02/18 10:10 Temperature -Last 24 Hours Temperature 98.6 F Temperature 99.2 F Temperature 100.0 F Temperature 99.7 F Temperature 98.3 F Temperature 98.1 F - Labs CBC & Chem 7: 12/02/18 04:05 12/02/18 04:05 Labs: Abnormal lab results 12/01/18 12/01/18 12/02/18 Range/Units 12:30 16:30 00:07 WBC (4.5-11.0) K/mm3 RBC (3.65-5.03) M/mm3 Hgb (10.1-14.3) gm/dl Hct (30.3-42.9) % MCV (79-97) fl MCH (28-32) pg RDW (13.2-15.2) % Plt Count (140-440) K/mm3 Sodium (137-145) mmol/L Potassium (3.6-5.0) mmol/L Chloride (98-107) mmol/L Carbon Dioxide (22-30) mmol/L BUN (7-17) mg/dL Creatinine (0.7-1.2) mg/dL Glucose (65-100) mg/dL POC Glucose 202 H 185 H 139 H (70-105) U Epithel Cells (Auto) (0-13.0) /HPF 12/02/18 12/02/18 12/02/18 Range/Units 04:05 04:05 06:05 WBC 11.6 H (4.5-11.0) K/mm3 RBC 3.27 L (3.65-5.03) M/mm3 Hgb 7.8 L (10.1-14.3) gm/dl Hct 24.5 L (30.3-42.9) % MCV 75 L (79-97) fl MCH 24 L (28-32) pg RDW 15.9 H (13.2-15.2) % Plt Count 564 H (140-440) K/mm3 Sodium 146 H D (137-145) mmol/L Potassium 5.1 H (3.6-5.0) mmol/L Chloride 114.0 H (98-107) mmol/L Carbon Dioxide 19 L (22-30) mmol/L BUN 24 H (7-17) mg/dL Creatinine 3.3 H (0.7-1.2) mg/dL Glucose 166 H (65-100) mg/dL POC Glucose 174 H (70-105) U Epithel Cells (Auto) (0-13.0) /HPF 12/02/18 Range/Units 06:31 WBC (4.5-11.0) K/mm3 RBC (3.65-5.03) M/mm3 Hgb (10.1-14.3) gm/dl Hct (30.3-42.9) % MCV (79-97) fl MCH (28-32) pg RDW (13.2-15.2) % Plt Count (140-440) K/mm3 Sodium (137-145) mmol/L Potassium (3.6-5.0) mmol/L Chloride (98-107) mmol/L Carbon Dioxide (22-30) mmol/L BUN (7-17) mg/dL Creatinine (0.7-1.2) mg/dL Glucose (65-100) mg/dL POC Glucose (70-105) U Epithel Cells (Auto) 14.0 H (0-13.0) /HPF
[2018-12-02] MEDS: NACL 0.9% IV SCH (11:18)
[2018-12-02] MEDS: DAPTOMYCIN IV SCH (11:18)
[2018-12-02] MEDS ORDERED: DILAUDID IV STA (11:34)
--- NOTE | 2018-12-02 13:12 | Progress Note ---
Assessment and Plan 1. Acute kidney injury: JOEL likley multifactorial in the setting of sepsis, hypotension and IV contrast. CT abdomen was negative for hydro. Creatinine level continue to increase. Restart gentle IV fluids. Monitor renal function. Avoid nephrotoxic agents. Meds dosage based on GFR. 2. FEN: Metabolic acidosis, continue IV fluids. Hyperkalemia, kayexalate. Monitor lytes. 3. Abdominal wall abscess: S/p I&D. 4. Sepsis: Followed by ID. 5. DM Type 2. 6. Seizures. 7. Meningioma. 8. Sleep apnea. 9. PUD. Subjective Date of service: 12/02/18 Principal diagnosis: abdominal wall abscess Interval history: Patient was seen and examined at the bedside. Objective - Vital Signs Vital signs: Vital Signs - 12hr 12/02/18 12/02/18 12/02/18 03:35 07:26 07:27 Temperature 99.2 F Pulse Rate 86 Pulse Rate [ 86 Anterior Bilateral] Respiratory 20 Rate Respiratory 18 Rate [Anterior Bilateral] Blood Pressure 101/38 Blood Pressure [Left] O2 Sat by Pulse 96 96 Oximetry 12/02/18 12/02/18 10:05 10:10 Temperature 98.6 F Pulse Rate 98 H 99 H Pulse Rate [ Anterior Bilateral] Respiratory 44 H Rate Respiratory Rate [Anterior Bilateral] Blood Pressure 138/61 Blood Pressure 116/62 [Left] O2 Sat by Pulse 97 Oximetry - General Appearance General appearance: well-developed, well-nourished, appears stated age, obese, other (no distress) EENT: ATNC, PERRL, hearing intact Neck: supple Respiratory: Present: Clear to Ascultation Cardiology: regular, S1S2, no murmurs Gastrointestinal: normoactive bowel sounds, no tenderness, obese Integumentary: no rash Neurologic: no asterixis, other (able to move extremities) Musculoskeletal: other (trace LE edema noted) - Lab 12/02/18 04:05 12/02/18 04:05 Most recent lab results Calcium 8.6 mg/dL (8.4-10.2) 12/02/18 04:05 Phosphorus 4.20 mg/dL (2.5-4.5) 11/30/18 07:15 Magnesium 1.70 mg/dL (1.7-2.3) 11/30/18 07:15 55.6 mg/dL (0.1-20.0) H 11/29/18 22:55 35 mmol/L 11/29/18 22:55 Medications & Allergies - Medications Allergies/Adverse Reactions: Allergies erythromycin base [From Erythrocin] Allergy (Verified 11/26/18 06:03) Itching Penicillins Allergy (Verified 11/26/18 06:02) Rash Home Medications: Home Medications Medication Instructions Recorded Confirmed Last Taken Type Atorvastatin Calcium 40 mg PO BID 11/26/18 11/26/18 11/25/18 08:00 History Cholecalciferol Vit D3 [Vitamin D3 1,000 1000units PO QDAY 11/26/18 11/26/18 11/25/18 08:00 History 1,000 UNIT TAB] Eliquis 5 mg PO QDAY 11/26/18 11/26/18 Unknown History HYDROcodone/APAP 5-325 [[place] 1 each PO Q4HR PRN 11/26/18 11/26/18 Unknown History 5/325] Hydrocortisone [Cortef TAB] 10 mg PO BID 11/26/18 11/26/18 Unknown History Insulin Glargine,Hum.rec.anlog 60 unit SQ QHS 11/26/18 11/26/18 Unknown History [Lantus Solostar] Insulin Glargine,Hum.rec.anlog See Protocol SUB-Q QACHS 11/26/18 11/29/18 Unknown History [Lantus Solostar] Insulin Lispro Prot/Lispro 45 1000units SUB-Q BID 11/26/18 11/29/18 Unknown History [HumaLOG Mix 75/25 Vial] Lasix TAB 20 mg PO BID 11/26/18 11/26/18 Unknown History Levothyroxine [Synthroid] 50 mcg PO QAM 11/26/18 11/26/18 11/24/18 08:00 History Lispro Insulin [HumaLOG] See Protocol SUB-Q ACHS 11/26/18 11/29/18 11/25/18 History Metoprolol [Lopressor TAB] 50 mg PO BID 11/26/18 11/26/18 Unknown History Mometasone 0.1% (Nf) 0.1 units TP BID 11/26/18 11/29/18 Unknown History Pantoprazole [Protonix] 40 mg PO BID 11/26/18 11/26/18 Unknown History Petrolatum,White [Vaseline White 5 gm TP BID 11/26/18 11/26/18 Unknown History Petroleum] Pregabalin [Lyrica] 150 mg PO BID 11/26/18 11/26/18 11/25/18 08:00 History lamoTRIgine [LaMICtal] 25 mg PO BID 11/26/18 11/26/18 Unknown History Active Medications: Generic Name Dose Route Start Last Admin Trade Name Freq PRN Reason Stop Dose Admin Acetaminophen 650 mg 11/26/18 00:14 11/30/18 20:12 Tylenol PO 650 mg Q4H PRN Administration Pain MILD(1-3)/Fever >100.5/TANG Acetaminophen/Hydrocodone Bitart 1 each 11/26/18 15:00 12/01/18 22:19 [place] 5/325 PO 1 each Q4H PRN Administration Pain, Moderate (4-6) Albuterol 2.5 mg 12/01/18 14:00 12/02/18 07:25 Proventil IH 2.5 mg Q6HRT VIOLETA Administration Cholecalciferol 1,000 unit 11/27/18 10:00 12/02/18 09:57 Vitamin D3 PO 1,000 unit QDAY VIOLETA Administration Dextrose 50 ml 11/26/18 17:17 D50w (25gm) Syringe IV PRN PRN Hypoglycemia Enoxaparin Sodium 30 mg 11/29/18 10:00 12/02/18 09:55 Lovenox SUB-Q 30 mg QDAY VIOLETA Administration Famotidine 10 mg 11/30/18 22:00 12/02/18 09:55 Pepcid PO 10 mg BID VIOLETA Administration Hydrocortisone Acetate 10 mg 11/26/18 22:00 12/02/18 09:56 Cortef PO 10 mg BID VIOLETA Administration Daptomycin 700 mg/ Sodium 100 mls @ 200 mls/hr 11/30/18 10:00 12/02/18 11:18 Chloride IV 200 mls/hr Q48H VIOLETA Administration Protocol Fluconazole 200 mg in 100 mls @ 100 mls/hr 12/01/18 15:00 12/02/18 09:55 Diflucan IV 100 mls/hr Q24HR VIOLETA Administration Protocol Metronidazole 500 mg in 100 mls @ 100 mls/hr 12/01/18 14:30 12/02/18 06:22 Flagyl 500 Mg/100 Ml IV 100 mls/hr Q8HR VIOLETA Administration Protocol Aztreonam 1 gm in 50 mls @ 50 mls/hr 12/01/18 15:00 12/02/18 05:25 Azactam/Ns 1 Gm/50 Ml IV 50 mls/hr Q8HR VIOLETA Administration Protocol Insulin Glargine 70 units 11/27/18 16:25 12/02/18 00:16 Lantus SUB-Q Not Given QHS [facility] Insulin Human Lispro 0 unit 11/26/18 18:00 12/02/18 06:22 Humalog SUB-Q 3 unit Q6HR [facility] Administration Protocol Lamotrigine 25 mg 11/26/18 22:00 12/02/18 09:56 Lamictal PO 25 mg BID VIOLETA Administration Levothyroxine Sodium 50 mcg 11/27/18 10:00 12/02/18 09:56 Synthroid PO 50 mcg QAM VIOLETA Administration Metoprolol Tartrate 50 mg 11/26/18 22:00 12/02/18 10:05 Lopressor PO 50 mg BID [facility] Administration Miscellaneous Medication 0.1 inch 11/26/18 22:00 Mometasone 0.1% (Nf) TP BID [facility] Morphine Sulfate 2 mg 11/26/18 15:00 11/27/18 18:58 Morphine IV 2 mg Q4H PRN Administration Pain , Severe (7-10) Ondansetron HCl 4 mg 11/26/18 00:14 Zofran IV Q4H PRN Nausea And Vomiting Pregabalin 75 mg 11/29/18 14:00 12/02/18 09:55 Lyrica PO 75 mg BID VIOLETA Administration Sodium Chloride 10 ml 11/26/18 10:00 12/02/18 09:57 Sodium Chloride Flush Syringe 10 Ml IV 10 ml BID VIOLETA Administration Sodium Chloride 10 ml 11/26/18 00:14 Sodium Chloride Flush Syringe 10 Ml IV PRN PRN LINE FLUSH
--- NOTE | 2018-12-02 13:51 | Progress Note ---
Assessment and Plan 53 yo F s/p incision and drainage, washout abdominal wall abscess with wound vac placement, POD 4 and incision and drainage of abdominal wall abscess and debridement of wound, POD 11/26/18 Plan: 1. continue current diet 2. abx per ID 3. prn pain control - would limit narcotics as patient has been lethargic 4. wound vac to -125mmhg continuous suction. dive superintendent on board. Will change vac dressing on Sunday Thank you, please call with questions. Subjective Date of service: 12/02/18 Narrative: Pt seen and examined. c/o pain near surgical site. Tm 100 overnight Objective Vital Signs - 12hr 12/02/18 12/02/18 12/02/18 03:35 07:26 07:27 Temperature 99.2 F Pulse Rate 86 Pulse Rate [ 86 Anterior Bilateral] Respiratory 20 Rate Respiratory 18 Rate [Anterior Bilateral] Blood Pressure 101/38 Blood Pressure [Left] O2 Sat by Pulse 96 96 Oximetry 12/02/18 12/02/18 12/02/18 10:05 10:10 13:29 Temperature 98.6 F 97.9 F Pulse Rate 98 H 99 H 80 Pulse Rate [ Anterior Bilateral] Respiratory 44 H 24 Rate Respiratory Rate [Anterior Bilateral] Blood Pressure 138/61 Blood Pressure 116/62 147/62 [Left] O2 Sat by Pulse 97 95 Oximetry - General physical appearance Narrative Exam: Gen: Awake and alert. Oriented. Lethargic CV; s1, S2+ Resp; even and unlabored Abd: soft, ND, obese, mild erythema around wound which is improved. Minimal TTP. Wound vac in place to suction, no leak, good seal. offal icer poultry photos and notes reviewed: Abdominal wound: Wound clean and dry, pink wound bed. Serosanguenous drainage in canister prior to wound vac change - Labs 12/02/18 04:05 12/02/18 04:05 Diabetes panel 12/02/18 Range/Units 04:05 Sodium 146 H D (137-145) mmol/L Potassium 5.1 H (3.6-5.0) mmol/L Chloride 114.0 H (98-107) mmol/L Carbon Dioxide 19 L (22-30) mmol/L BUN 24 H (7-17) mg/dL Creatinine 3.3 H (0.7-1.2) mg/dL Glucose 166 H (65-100) mg/dL Calcium 8.6 (8.4-10.2) mg/dL Calcium panel 12/02/18 Range/Units 04:05 Calcium 8.6 (8.4-10.2) mg/dL Pituitary panel 12/02/18 Range/Units 04:05 Sodium 146 H D (137-145) mmol/L Potassium 5.1 H (3.6-5.0) mmol/L Chloride 114.0 H (98-107) mmol/L Carbon Dioxide 19 L (22-30) mmol/L BUN 24 H (7-17) mg/dL Creatinine 3.3 H (0.7-1.2) mg/dL Glucose 166 H (65-100) mg/dL Calcium 8.6 (8.4-10.2) mg/dL Adrenal panel 12/02/18 Range/Units 04:05 Sodium 146 H D (137-145) mmol/L Potassium 5.1 H (3.6-5.0) mmol/L Chloride 114.0 H (98-107) mmol/L Carbon Dioxide 19 L (22-30) mmol/L BUN 24 H (7-17) mg/dL Creatinine 3.3 H (0.7-1.2) mg/dL Glucose 166 H (65-100) mg/dL Calcium 8.6 (8.4-10.2) mg/dL
--- NOTE | 2018-12-02 17:43 | Progress Note ---
Assessment and Plan Assessment and plan: Patient is a 53-year-old female with a past medical history of hypertension, diabetes, seizures, meningioma, sarcoidosis, hypothyroidism, hyperlipidemia, sleep apnea, duodenal ulcer, morbid obesity, history of being bedbound who initially presented with abdominal pain and drainage and was noted ot have area of indurating with inflammation and ill-defined fluid and gas bubbles. On Evaluation of PEG tube site it was noted to have induration Febrile during admission to 100.9 with a leukocytosis of 15. Blood cultures from 11/25 are currently pending. She is currently receiving vancomycin and pip- tazo. Chest x-ray with mild fluid overload. Abdominal CT with fluids/gas bubble in the abdominal wall. She has been evaluated by general surgery and was taken for drainage in the OR. Copious pus noted with tunnelling abscess. * Patient required 2 OR VISIT FOR drainage. Cultures still with no growth s/p OR drainage 11/26/18 Large abdominal wall abscess with cavity tunnelling towards the right lower a bdomen for about 12 inches. Large amount of purulent fluid. Abscess cavity extends to fascia. Two small metallic foreign objects found in abscess cavity likely related to old PEG tube CT A/P IMPRESSION: 1. Area of induration with inflammation and ill-defined fluid and gas bubbles in the anterior abdominal wall with the epicenter in the left upper quadrant possibly related to previous gastrostomy tube. No discrete drainable fluid collection at this time CT head: IMPRESSION: No acute intracranial process is identified. Moderate bifrontal encephalomalacia is identified which is probably secondary to surgery. There is also suggestion of a left parafalcine extra-axial mass which probably represents a meningioma. 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 CT head per daughters request due to changing mental status, Daughter understands that we do not have Neurosurgery. Out Patient Neurosurgery follow up considering probably reoccurrance of mengioma in the setting of some mental status changes intermittently * If patient is tolerating diet and clinically stable WITH IMPROVING RENAL FUNCTION in am WITH WOUND VAC arranged. The patient can safely be discharged back to snf. * She will need outpatient follow up with Neurosurgery outpatient. Sepsis secondary to Abdominal abscess- POD 4 OR drainage JOEL secondary to vasomotor nephropathy with underlying contrast induced nephropathy hypertension Diabetes Mellitus With hyperglycemia Chronic Focal infarct in the right occipital lobe Seizures meningioma Sarcoidosis hypothyroidism hyperlipidemia Sleep apnea Duodenal ulcer morbid obesity Acute Encephalopathy- worsening per daughter. Plan Supportive care Repeat chest xray improved Will need wound vac per wound team Discussed with [place] Lead Engineer Avoid nephrtoxic meds ID input noted, antibiotics per them Follow up wound cultures Adjust Insulin dose, patient also on Hydrocortizone making BG management difficult Insulin FOR BETTER CONTROL OF BG. Follow cultures Continue appropriate outpatient medications DVT prophylaxis Continue current care, Creatnine appears to be coming to a crest at the [place]. History Interval history: Patient is seen and examined today, no new complaints, wound vac in place, resting comfortable, per nursing staff. plan to restart diet. woundcare working on the patient at this time. Hospitalist Physical - Physical exam Narrative exam: General Apperance: The patient sitting in bed mild respiratory distress. morbidly obese HEENT: Normocephalic, atraumatic. Pupils equally round and reactive to light, extraocular movement intact, and no sclericterus or JVD or thyromegaly or nodu le. Neck supple, no carotid bruit, mucous membranes moist, no exudate or erythema Heart: S1-S2, regular is rhythm Lungs: crackles to auscultation bilaterally, Abdomen: large panus, Positive bowel sounds, soft, tender in LUQ, + erythema,wound vac noted in place of previous PEG tube site, non distended, no organomegaly Extremities: trace edema, no cyanosis clubbing Skin: no rash, nodule, warm and dry Neuro:CN 2 -12 intact,speech is fluent - Constitutional Vitals: Temp Pulse Resp BP Pulse Ox 99.0 F 93 H 24 121/42 98 12/02/18 16:57 12/02/18 16:57 12/02/18 16:57 12/02/18 16:57 12/02/18 16:57 Results - Labs CBC & Chem 7: 12/02/18 04:05 12/02/18 04:05 Labs: Laboratory Last Values WBC 11.6 K/mm3 (4.5-11.0) H 12/02/18 04:05 RBC 3.27 M/mm3 (3.65-5.03) L 12/02/18 04:05 Hgb 7.8 gm/dl (10.1-14.3) L 12/02/18 04:05 Hct 24.5 % (30.3-42.9) L 12/02/18 04:05 MCV 75 fl (79-97) L 12/02/18 04:05 MCH 24 pg (28-32) L 12/02/18 04:05 MCHC 32 % (30-34) 12/02/18 04:05 RDW 15.9 % (13.2-15.2) H 12/02/18 04:05 Plt Count 564 K/mm3 (140-440) H 12/02/18 04:05 Lymph % (Auto) Customer Management Specialist 11/26/18 04:15 [place] % (Auto) Customer Management Specialist 11/26/18 04:15 Eos % (Auto) Customer Management Specialist 11/26/18 04:15 Baso % (Auto) Customer Management Specialist 11/26/18 04:15 Lymph # Customer Management Specialist 11/26/18 04:15 [place] # Customer Management Specialist 11/26/18 04:15 Eos # Customer Management Specialist 11/26/18 04:15 Baso # Customer Management Specialist 11/26/18 04:15 Add Manual Diff Complete 11/30/18 07:15 Total Counted 100 11/30/18 07:15 Seg Neutrophils % Customer Management Specialist 11/26/18 04:15 Seg Neuts % (Manual) 64.0 % (40.0-70.0) 11/30/18 07:15 6.0 % 11/30/18 07:15 15.0 % (13.4-35.0) 11/30/18 07:15 Reactive Lymphs % (Man) 0 % 11/30/18 07:15 7.0 % (0.0-7.3) 11/30/18 07:15 2.0 % (0.0-4.3) 11/30/18 07:15 0 % (0.0-1.8) 11/30/18 07:15 3.0 % 11/30/18 07:15 2.0 % 11/30/18 07:15 1.0 % 11/30/18 07:15 0 % 11/30/18 07:15 Nucleated RBC % Not Reportable 11/30/18 07:15 Seg Neutrophils # Customer Management Specialist 11/26/18 04:15 Seg Neutrophils # Man 8.3 K/mm3 (1.8-7.7) H 11/30/18 07:15 Band Neutrophils # 0.8 K/mm3 11/30/18 07:15 2.0 K/mm3 (1.2-5.4) 11/30/18 07:15 Abs React Lymphs (Man) 0.0 K/mm3 11/30/18 07:15 0.9 K/mm3 (0.0-0.8) H 11/30/18 07:15 0.3 K/mm3 (0.0-0.4) 11/30/18 07:15 0.0 K/mm3 (0.0-0.1) 11/30/18 07:15 0.4 K/mm3 11/30/18 07:15 0.3 K/mm3 11/30/18 07:15 0.1 K/mm3 11/30/18 07:15 Blast Cells # 0.0 K/mm3 11/30/18 07:15 WBC Morphology Not Reportable 11/30/18 07:15 Hypersegmented Neuts Not Reportable 11/30/18 07:15 Hyposegmented Neuts Not Reportable 11/30/18 07:15 Hypogranular Neuts Not Reportable 11/30/18 07:15 Not Reportable 11/30/18 07:15 Not Reportable 11/30/18 07:15 Not Reportable 11/30/18 07:15 Not Reportable 11/30/18 07:15 Not Reportable 11/30/18 07:15 Not Reportable 11/30/18 07:15 Consistent w auto 11/30/18 07:15 Not Reportable 11/30/18 07:15 Plt Clumps, EDTA Not Reportable 11/30/18 07:15 Not Reportable 11/30/18 07:15 Not Reportable 11/30/18 07:15 Not Reportable 11/30/18 07:15 Plt Morphology Comment Not Reportable 11/30/18 07:15 RBC Morphology Not Reportable 11/30/18 07:15 Dimorphic RBCs Not Reportable 11/30/18 07:15 Not Reportable 11/30/18 07:15 1+ 11/30/18 07:15 Not Reportable 11/30/18 07:15 1+ 11/30/18 07:15 1+ 11/30/18 07:15 Not Reportable 11/30/18 07:15 Not Reportable 11/30/18 07:15 Not Reportable 11/30/18 07:15 Not Reportable 11/30/18 07:15 Not Reportable 11/30/18 07:15 Not Reportable 11/30/18 07:15 Not Reportable 11/30/18 07:15 Not Reportable 11/30/18 07:15 Not Reportable 11/30/18 07:15 Not Reportable 11/30/18 07:15 Not Reportable 11/30/18 07:15 Not Reportable 11/30/18 07:15 Not Reportable 11/30/18 07:15 Not Reportable 11/30/18 07:15 Acanthocytes (Spur) Not Reportable 11/30/18 07:15 Rouleaux Not Reportable 11/30/18 07:15 Not Reportable 11/30/18 07:15 Not Reportable 11/30/18 07:15 Not Reportable 11/30/18 07:15 Not Reportable 11/30/18 07:15 Hem Pathologist Commnt No 11/30/18 07:15 Sodium 146 mmol/L (137-145) H D 12/02/18 04:05 Potassium 5.1 mmol/L (3.6-5.0) H 12/02/18 04:05 Chloride 114.0 mmol/L (98-107) H 12/02/18 04:05 Carbon Dioxide 19 mmol/L (22-30) L 12/02/18 04:05 18 mmol/L 12/02/18 04:05 BUN 24 mg/dL (7-17) H 12/02/18 04:05 3.3 mg/dL (0.7-1.2) H 12/02/18 04:05 Estimated GFR 18 ml/min 12/02/18 04:05 7 % 12/02/18 04:05 Glucose 166 mg/dL (65-100) H 12/02/18 04:05 POC Glucose 255 (70-105) H 12/02/18 13:21 Lactic Acid 2.40 mmol/L (0.7-2.0) H* 11/25/18 16:05 Calcium 8.6 mg/dL (8.4-10.2) 12/02/18 04:05 Phosphorus 4.20 mg/dL (2.5-4.5) 11/30/18 07:15 Magnesium 1.70 mg/dL (1.7-2.3) 11/30/18 07:15 0.50 mg/dL (0.1-1.2) 11/25/18 15:22 AST 28 units/L (5-40) 11/25/18 15:22 ALT 27 units/L (7-56) 11/25/18 15:22 236 units/L (35-129) H 11/25/18 15:22 265 units/L (30-135) H 12/01/18 05:24 7.5 g/dL (6.3-8.2) 11/25/18 15:22 3.2 g/dL (3.9-5) L 11/25/18 15:22 0.7 % 11/25/18 15:22 Yellow (Yellow) 12/02/18 06:31 Slightly-cloudy (Clear) 12/02/18 06:31 5.0 (5.0-7.0) 12/02/18 06:31 Ur Specific [place] 1.011 (1.003-1.030) 12/02/18 06:31 <15 mg/dl mg/dL (Negative) 12/02/18 06:31 Neg mg/dL (Negative) 12/02/18 06:31 Neg mg/dL (Negative) 12/02/18 06:31 Sm (Negative) 12/02/18 06:31 Neg (Negative) 12/02/18 06:31 Neg (Negative) 12/02/18 06:31 < 2.0 mg/dL (<2.0) 12/02/18 06:31 Ur Leukocyte Esterase Lg (Negative) 12/02/18 06:31 5.0 /HPF (0.0-6.0) 12/02/18 06:31 8.0 /HPF (0.0-6.0) 12/02/18 06:31 U Epithel Cells (Auto) 14.0 /HPF (0-13.0) H 12/02/18 06:31 2+ /HPF (Negative) 11/29/18 22:55 Few /HPF 11/29/18 22:55 1+ /HPF 12/02/18 06:31 None seen (None Seen) 12/02/18 06:31 55.6 mg/dL (0.1-20.0) H 11/29/18 22:55 35 mmol/L 11/29/18 22:55 Vancomycin Trough 25.2 ug/mL (5.0-20.0) H 11/28/18 04:53 Active Medications - Current Medications Current Medications: Generic Name Dose Route Start Last Admin Trade Name Freq PRN Reason Stop Dose Admin Acetaminophen 650 mg 11/26/18 00:14 11/30/18 20:12 Tylenol PO 650 mg Q4H PRN Administration Pain MILD(1-3)/Fever >100.5/TANG Acetaminophen/Hydrocodone Bitart 1 each 11/26/18 15:00 12/01/18 22:19 [place] 5/325 PO 1 each Q4H PRN Administration Pain, Moderate (4-6) Albuterol 2.5 mg 12/01/18 14:00 12/02/18 14:26 Proventil IH Not Given Q6HRT VIOLETA Cholecalciferol 1,000 unit 11/27/18 10:00 12/02/18 09:57 Vitamin D3 PO 1,000 unit QDAY VIOLETA Administration Dextrose 50 ml 11/26/18 17:17 D50w (25gm) Syringe IV PRN PRN Hypoglycemia Enoxaparin Sodium 30 mg 11/29/18 10:00 12/02/18 09:55 Lovenox SUB-Q 30 mg QDAY VIOLETA Administration Famotidine 10 mg 11/30/18 22:00 12/02/18 09:55 Pepcid PO 10 mg BID VIOLETA Administration Hydrocortisone Acetate 10 mg 11/26/18 22:00 12/02/18 09:56 Cortef PO 10 mg BID VIOLETA Administration Daptomycin 700 mg/ Sodium 100 mls @ 200 mls/hr 11/30/18 10:00 12/02/18 11:18 Chloride IV 200 mls/hr Q48H VIOLETA Administration Protocol Fluconazole 200 mg in 100 mls @ 100 mls/hr 12/01/18 15:00 12/02/18 09:55 Diflucan IV 100 mls/hr Q24HR VIOLETA Administration Protocol Metronidazole 500 mg in 100 mls @ 100 mls/hr 12/01/18 14:30 12/02/18 14:54 Flagyl 500 Mg/100 Ml IV 100 mls/hr Q8HR VIOLETA Administration Protocol Aztreonam 1 gm in 50 mls @ 50 mls/hr 12/01/18 15:00 12/02/18 13:36 Azactam/Ns 1 Gm/50 Ml IV 50 mls/hr Q8HR VIOLETA Administration Protocol Insulin Glargine 70 units 11/27/18 16:25 12/02/18 00:16 Lantus SUB-Q Not Given QHS [facility] Insulin Human Lispro 0 unit 11/26/18 18:00 12/02/18 13:32 Humalog SUB-Q 6 unit Q6HR [facility] Administration Protocol Lamotrigine 25 mg 11/26/18 22:00 12/02/18 09:56 Lamictal PO 25 mg BID VIOLETA Administration Levothyroxine Sodium 50 mcg 11/27/18 10:00 12/02/18 09:56 Synthroid PO 50 mcg QAM VIOLETA Administration Metoprolol Tartrate 50 mg 11/26/18 22:00 12/02/18 10:05 Lopressor PO 50 mg BID [facility] Administration Miscellaneous Medication 0.1 inch 11/26/18 22:00 Mometasone 0.1% (Nf) TP BID [facility] Morphine Sulfate 2 mg 11/26/18 15:00 11/27/18 18:58 Morphine IV 2 mg Q4H PRN Administration Pain , Severe (7-10) Ondansetron HCl 4 mg 11/26/18 00:14 Zofran IV Q4H PRN Nausea And Vomiting Pregabalin 75 mg 11/29/18 14:00 12/02/18 09:55 Lyrica PO 75 mg BID VIOLETA Administration Sodium Chloride 10 ml 11/26/18 10:00 12/02/18 09:57 Sodium Chloride Flush Syringe 10 Ml IV 10 ml BID VIOLETA Administration Sodium Chloride 10 ml 11/26/18 00:14 Sodium Chloride Flush Syringe 10 Ml IV PRN PRN LINE FLUSH Nutrition/Malnutrition Assess - Dietary Evaluation Nutrition/Malnutrition Findings: Nutrition Notes Start: 12/02/18 15:52 Freq: Status: Active Protocol: Document 12/02/18 15:52 [place] (Rec: 12/02/18 16:09 OH [id number]) Nutrition Notes Need for Assessment generated from: LOS Initial or Follow up Assessment Current Diagnosis Acute Kidney Injury,Diabetes, Sepsis,Hypertension Other Pertinent Diagnosis abdominal abscess; recent surgery; wound vac Current Diet cardiac/consistent CHO Labs/Tests Cr 3.3 GLU 255 BUN 24 na 146 K+ 5.1 Pertinent Medications Humalog Lantus Synthroid VIT D 3 LOVENOX Height 5 ft 7 in Weight 151.8 kg [place] Body Weight (kg) 61.36 BMI 52.4 Weight Status Morbidly Obese Subjective/Other Information LOS: Pt. lying in bed asleep. Pt. noted to have tray with ~ 15% of meal consumed. No ONS ordered at this time. Wound vac in place. Percent of energy/protein needs met: <25/25% Burn Absent Trauma Absent Skin Integrity/Comment abdominal abscess; recent surgery; Current % PO Poor (25-49%) Protein-Calorie Malnutrition Severe #2 Nutrition Diagnosis Increased nutrient needs ( specify in comment below) Etiology abdominal abscess As Evidenced by Signs and Symptoms wound #1 Nutrition Diagnosis Inadequate oral intake Etiology lethargic/pain medication As Evidenced by Signs and Symptoms <50% PRO/KCAL needs met Is patient on ventilator? No Is Patient Ambulatory and/or Out of Bed No REE-([place]-confined to bed) 2590.020 Kcal/Kg value to use for calculation 16 Approximate Energy Requirements Using 2429 kcal/Kg Calculation Used for Recommendations Kcal/kg Additional Notes PROTEIN: 1.2-1.5 g/kg/IBW 73- 92 g/day FLUID: 1 mL/kcal Nutrition Intervention Change Diet Order: cont cardiac/consistent CHO Add Supplement/Snack (indicate name/kcal ensure clear BID /protein ) Provides kCal: 480 Provides Protein (gm) 16 Goal #1 po intake to exceed 75% of PRO /KCAL requirements Goal #2 Initiation ONS Follow-Up By: 12/04/18 Additional Comments Monitor po intake/ONS tolerance/ TF
[2018-12-02] MEDS: NACL 0.45% 1000 ML 1,000 ML IV SCH ×2 (22:27→22:30)
[2018-12-03] MEDS: PROVENTIL IH SCH ×4 (03:10→19:32)
[2018-12-03] MEDS: FLAGYL 500 MG/100 ML 500 MG/100 ML BAG IV SCH ×3 (05:24→21:47)
[2018-12-03 06:20] LABS: Hematocrit 25.8 % (30.3-42.9); Hemoglobin 7.7 gm/dl (10.1-14.3); Mean Corpuscular HGB Conc 30 % (30-34); Mean Corpuscular Volume 76 fl (79-97); Platelet Count 536 K/mm3 (140-440); Red Blood Count 3.38 M/mm3 (3.65-5.03); Red Cell Distribution Width 16.1 % (13.2-15.2)
[2018-12-03] MEDS: AZACTAM/NS 1 GM/50 ML 1 GM/50 ML VIAL IV SCH ×3 (06:32→21:46)
[2018-12-03] MEDS: HumaLOG SUB-Q SCH ×3 (06:33→17:23)
[2018-12-03 06:41] LABS: Calcium 8.8 mg/dL (8.4-10.2)
[2018-12-03] MEDS: LOVENOX SUB-Q SCH (10:19)
[2018-12-03] MEDS: VITAMIN D3 PO SCH (10:19)
[2018-12-03] MEDS: LYRICA PO SCH ×2 (10:19→21:49)
[2018-12-03] MEDS: CORTEF PO SCH ×2 (10:19→21:49)
[2018-12-03] MEDS: PEPCID PO SCH ×2 (10:20→21:49)
[2018-12-03] MEDS: LaMICtal PO SCH ×2 (10:20→21:49)
[2018-12-03] MEDS: DIFLUCAN 200 MG/100 ML BAG IV SCH (10:20)
[2018-12-03] MEDS: SYNTHROID PO SCH (10:20)
[2018-12-03] MEDS: LOPRESSOR PO SCH ×2 (10:21→21:49)
--- NOTE | 2018-12-03 10:27 | Progress Note ---
Assessment and Plan Cultures: 11/25/18 Blood: no growth 11/25/18 Wound CX: light growth of skin otoniel 11/26/18 OR Wound CX: normal skin otoniel 12/01/18 Blood: no growth to date A/P: Ms. Estrada is a 53-year-old female with a past medical history of hypertension, diabetes, history of being bedbound presents with sepsis secondary to abdominal wall abscess 1. Sepsis: Improved. No fever in > 24 hours, increasing leukocytosis (on IV steroids); secondary to abdominal wall abscess. Persistent fever unclear possibly due to ? drug fever secondary to zosyn (h/o penicillin allergy). Other possibilities ?UTI, ?bilateral groin L>R candidal intertrigo with secondary bacterial infection. Repeat CXR negative. 2. Abdominal wall abscess in a patient with morbid obesity: S/p incision and drainage, washout abdominal wall abscess with wound vac placement 11/29/18. Large amount of purulent drainage within large abscess cavity. Fascia and subcutaneous tissue healthy. On daptomycin and pip-tazo. 3. DM2 4. JOEL: Worsening. Antibiotics renally dosed. Continue to monitor serum creatinine. 5. Presumed bilateral groin L>R candidal intertrigo with secondary bacterial infection. 6. AMS : improved Recs: Continue Daptomycin every 48 hours, D4 continue fluconazole 200 mg q day due to presumed bilateral groin Candidal intertrigo, D4. continue aztreonam (renally adjusted), D3 continue metronidazole for now to cover secondary bacterial infection, D3. Monitor fever and leukocytosis Pauline Novoa NP [facility] M: [phone] O:[phone] Subjective Date of service: 12/03/18 Principal diagnosis: abdominal wall abscess Interval history: Patient see and examined. Awake. Alert. More alert. Following simple commands easily. Reports generalized weakness. + wound vac Objective - Exam Narrative Exam: Constitutional: Alert. awake. Follows command. No acute distress. Head, Ears, Nose: Normocephalic, atraumatic. External ears, nose normal Eyes: Conjunctivae/corneas clear. No icterus. No ptosis. Neck: Supple, no meningeal signs Oral: fair dentition, moist mucous membranes Cardiovascular: S1, S2 normal. Normal rhythm Respiratory: Good air entry, clear to auscultation bilaterally GI: tender due to surgery. +wound Vac Musculoskeletal: No pedal edema, Skin: No rash or abscess Hem/Lymphatic: No palpable cervical or supraclavicular nodes. No lymphangitis Psych: calm Neurological: Moves all extremities, no focal defects - Constitutional Vitals: Vital Signs Temp Pulse Resp BP Pulse Ox 98.8 F 80 24 104/48 97 12/03/18 08:00 12/03/18 08:00 12/03/18 08:00 12/03/18 08:00 12/03/18 08:00 Temperature -Last 24 Hours Temperature 98.8 F Temperature 97.4 F Temperature 98.8 F Temperature 99.6 F Temperature 99.0 F Temperature 97.9 F - Labs CBC & Chem 7: 12/03/18 05:35 12/03/18 05:35 Labs: Abnormal lab results 12/02/18 12/02/18 12/02/18 Range/Units 13:21 17:00 21:22 WBC (4.5-11.0) K/mm3 RBC (3.65-5.03) M/mm3 Hgb (10.1-14.3) gm/dl Hct (30.3-42.9) % MCV (79-97) fl MCH (28-32) pg RDW (13.2-15.2) % Plt Count (140-440) K/mm3 Chloride (98-107) mmol/L Carbon Dioxide (22-30) mmol/L BUN (7-17) mg/dL Creatinine (0.7-1.2) mg/dL Glucose (65-100) mg/dL POC Glucose 255 H 197 H 161 H (70-105) 12/02/18 12/03/18 12/03/18 Range/Units 23:22 05:35 05:35 WBC 12.7 H (4.5-11.0) K/mm3 RBC 3.38 L (3.65-5.03) M/mm3 Hgb 7.7 L (10.1-14.3) gm/dl Hct 25.8 L (30.3-42.9) % MCV 76 L (79-97) fl MCH 23 L (28-32) pg RDW 16.1 H (13.2-15.2) % Plt Count 536 H (140-440) K/mm3 Chloride 113.6 H (98-107) mmol/L Carbon Dioxide 19 L (22-30) mmol/L BUN 26 H (7-17) mg/dL Creatinine 3.1 H (0.7-1.2) mg/dL Glucose 193 H (65-100) mg/dL POC Glucose 156 H (70-105) 12/03/18 Range/Units 05:56 WBC (4.5-11.0) K/mm3 RBC (3.65-5.03) M/mm3 Hgb (10.1-14.3) gm/dl Hct (30.3-42.9) % MCV (79-97) fl MCH (28-32) pg RDW (13.2-15.2) % Plt Count (140-440) K/mm3 Chloride (98-107) mmol/L Carbon Dioxide (22-30) mmol/L BUN (7-17) mg/dL Creatinine (0.7-1.2) mg/dL Glucose (65-100) mg/dL POC Glucose 179 H (70-105)
[2018-12-03] MEDS: SODIUM CHLORIDE FLUSH SYRINGE 10 ML IV SCH (10:28)
--- NOTE | 2018-12-03 10:31 | Progress Note ---
Assessment and Plan 1. Acute kidney injury: JOEL likley multifactorial in the setting of sepsis, hypotension and IV contrast. CT abdomen was negative for hydro. Creatinine level is slightly better. Continue IV fluids. Monitor renal function. Avoid nephrotoxic agents. Meds dosage based on GFR. 2. FEN: Metabolic acidosis, continue IV fluids. Hyperkalemia, improved. Monitor lytes. 3. Abdominal wall abscess: S/p I&D. 4. Sepsis: Followed by ID. 5. DM Type 2. 6. Seizures. 7. Meningioma. 8. Sleep apnea. 9. PUD. Subjective Date of service: 12/03/18 Principal diagnosis: abdominal wall abscess Interval history: Patient was seen and examined at the bedside. Objective - Vital Signs Vital signs: Vital Signs - 12hr 12/03/18 12/03/18 12/03/18 00:49 02:00 04:16 Temperature 98.8 F 97.4 F L Pulse Rate 85 82 Pulse Rate [ 95 H Anterior Bilateral] Respiratory 20 22 Rate Respiratory 20 Rate [Anterior Bilateral] Blood Pressure Blood Pressure 101/51 116/56 [Left] O2 Sat by Pulse 96 98 Oximetry 12/03/18 12/03/18 12/03/18 07:27 08:00 10:21 Temperature 98.8 F Pulse Rate 80 80 Pulse Rate [ 85 Anterior Bilateral] Respiratory 24 Rate Respiratory 18 Rate [Anterior Bilateral] Blood Pressure 104/48 Blood Pressure 104/48 [Left] O2 Sat by Pulse 96 97 Oximetry - General Appearance General appearance: well-developed, well-nourished, appears stated age, obese, other (no distress) EENT: ATNC, PERRL Neck: supple Respiratory: Present: Clear to Ascultation Cardiology: regular, S1S2, no murmurs Gastrointestinal: normoactive bowel sounds, no tenderness, no distended, obese, other (wound vac noted) Neurologic: no asterixis, other (able to move extremities) Musculoskeletal: other (trace LE edema noted) - Lab 12/03/18 05:35 12/03/18 05:35 Most recent lab results Calcium 8.8 mg/dL (8.4-10.2) 12/03/18 05:35 Phosphorus 4.20 mg/dL (2.5-4.5) 11/30/18 07:15 Magnesium 1.70 mg/dL (1.7-2.3) 11/30/18 07:15 55.6 mg/dL (0.1-20.0) H 11/29/18 22:55 35 mmol/L 11/29/18 22:55 Medications & Allergies - Medications Allergies/Adverse Reactions: Allergies erythromycin base [From Erythrocin] Allergy (Verified 11/26/18 06:03) Itching Penicillins Allergy (Verified 11/26/18 06:02) Rash Home Medications: Home Medications Medication Instructions Recorded Confirmed Last Taken Type Atorvastatin Calcium 40 mg PO BID 11/26/18 11/26/18 11/25/18 08:00 History Cholecalciferol Vit D3 [Vitamin D3 1,000 1000units PO QDAY 11/26/18 11/26/18 11/25/18 08:00 History 1,000 UNIT TAB] Eliquis 5 mg PO QDAY 11/26/18 11/26/18 Unknown History HYDROcodone/APAP 5-325 [Wilcox 1 each PO Q4HR PRN 11/26/18 11/26/18 Unknown History 5/325] Hydrocortisone [Cortef TAB] 10 mg PO BID 11/26/18 11/26/18 Unknown History Insulin Glargine,Hum.rec.anlog 60 unit SQ QHS 11/26/18 11/26/18 Unknown History [Lantus Solostar] Insulin Glargine,Hum.rec.anlog See Protocol SUB-Q QACHS 11/26/18 11/29/18 Unknown History [Lantus Solostar] Insulin Lispro Prot/Lispro 45 1000units SUB-Q BID 11/26/18 11/29/18 Unknown History [HumaLOG Mix 75/25 Vial] Lasix TAB 20 mg PO BID 11/26/18 11/26/18 Unknown History Levothyroxine [Synthroid] 50 mcg PO QAM 11/26/18 11/26/18 11/24/18 08:00 History Lispro Insulin [HumaLOG] See Protocol SUB-Q ACHS 11/26/18 11/29/18 11/25/18 History Metoprolol [Lopressor TAB] 50 mg PO BID 11/26/18 11/26/18 Unknown History Mometasone 0.1% (Nf) 0.1 units TP BID 11/26/18 11/29/18 Unknown History Pantoprazole [Protonix] 40 mg PO BID 11/26/18 11/26/18 Unknown History Petrolatum,White [Vaseline White 5 gm TP BID 11/26/18 11/26/18 Unknown History Petroleum] Pregabalin [Lyrica] 150 mg PO BID 11/26/18 11/26/18 11/25/18 08:00 History lamoTRIgine [LaMICtal] 25 mg PO BID 11/26/18 11/26/18 Unknown History Active Medications: Generic Name Dose Route Start Last Admin Trade Name Freq PRN Reason Stop Dose Admin Acetaminophen 650 mg 11/26/18 00:14 11/30/18 20:12 Tylenol PO 650 mg Q4H PRN Administration Pain MILD(1-3)/Fever >100.5/TANG Acetaminophen/Hydrocodone Bitart 1 each 11/26/18 15:00 12/01/18 22:19 Wilcox 5/325 PO 1 each Q4H PRN Administration Pain, Moderate (4-6) Albuterol 2.5 mg 12/01/18 14:00 12/03/18 07:26 Proventil IH 2.5 mg Q6HRT VIOLETA Administration Cholecalciferol 1,000 unit 11/27/18 10:00 12/03/18 10:19 Vitamin D3 PO 1,000 unit QDAY VIOLETA Administration Dextrose 50 ml 11/26/18 17:17 D50w (25gm) Syringe IV PRN PRN Hypoglycemia Enoxaparin Sodium 30 mg 11/29/18 10:00 12/03/18 10:19 Lovenox SUB-Q 30 mg QDAY VIOLETA Administration Famotidine 10 mg 11/30/18 22:00 12/03/18 10:20 Pepcid PO 10 mg BID VIOLETA Administration Hydrocortisone Acetate 10 mg 11/26/18 22:00 12/03/18 10:19 Cortef PO 10 mg BID VIOLETA Administration Daptomycin 700 mg/ Sodium 100 mls @ 200 mls/hr 11/30/18 10:00 12/02/18 11:18 Chloride IV 200 mls/hr Q48H VIOLETA Administration Protocol Fluconazole 200 mg in 100 mls @ 100 mls/hr 12/01/18 15:00 12/03/18 10:20 Diflucan IV 100 mls/hr Q24HR VIOLETA Administration Protocol Metronidazole 500 mg in 100 mls @ 100 mls/hr 12/01/18 14:30 12/03/18 05:24 Flagyl 500 Mg/100 Ml IV 100 mls/hr Q8HR VIOLETA Administration Protocol Aztreonam 1 gm in 50 mls @ 50 mls/hr 12/01/18 15:00 12/03/18 06:32 Azactam/Ns 1 Gm/50 Ml IV 50 mls/hr Q8HR VIOLETA Administration Protocol Sodium Chloride 1,000 mls @ 75 mls/hr 12/02/18 22:00 12/02/18 22:30 Nacl 0.45% 1000 Ml IV 75 mls/hr DIRECT VIOLETA Administration Insulin Glargine 70 units 11/27/18 16:25 12/02/18 23:39 Lantus SUB-Q Not Given QHS [facility] Insulin Human Lispro 0 unit 11/26/18 18:00 12/03/18 06:33 Humalog SUB-Q 3 unit Q6HR VIOLETA Administration Protocol Lamotrigine 25 mg 11/26/18 22:00 12/03/18 10:20 Lamictal PO 25 mg BID VIOLETA Administration Levothyroxine Sodium 50 mcg 11/27/18 10:00 12/03/18 10:20 Synthroid PO 50 mcg QAM VIOLETA Administration Metoprolol Tartrate 50 mg 11/26/18 22:00 12/03/18 10:21 Lopressor PO Not Given BID [facility] Morphine Sulfate 2 mg 11/26/18 15:00 11/27/18 18:58 Morphine IV 2 mg Q4H PRN Administration Pain , Severe (7-10) Ondansetron HCl 4 mg 11/26/18 00:14 Zofran IV Q4H PRN Nausea And Vomiting Pregabalin 75 mg 11/29/18 14:00 12/03/18 10:19 Lyrica PO 75 mg BID VIOLETA Administration Sodium Chloride 10 ml 11/26/18 10:00 12/03/18 10:28 Sodium Chloride Flush Syringe 10 Ml IV 10 ml BID VIOLETA Administration Sodium Chloride 10 ml 11/26/18 00:14 Sodium Chloride Flush Syringe 10 Ml IV PRN PRN LINE FLUSH
--- NOTE | 2018-12-03 11:06 | Progress Note ---
Assessment and Plan 53 yo F s/p incision and drainage, washout abdominal wall abscess with wound vac placement, POD 5 and incision and drainage of abdominal wall abscess and debridement of wound, POD /10/09 Plan: 1. continue current diet 2. abx per ID 3. prn PO pain control - would limit narcotics as patient has been lethargic 4. wound vac to -125mmhg continuous suction. wildlife protector on board. Ok to dc from surgery standpoint. Patient will need wound vac at her facility. She may be set up for follow up in wound care center per her facility. Thank you, please call with questions. Subjective Date of service: 12/03/18 Narrative: Pt seen and examined. No acute complaints. Afebrile x 24 hours Objective Vital Signs - 12hr 12/03/18 12/03/18 12/03/18 00:49 02:00 04:16 Temperature 98.8 F 97.4 F L Pulse Rate 85 82 Pulse Rate [ 95 H Anterior Bilateral] Respiratory 20 22 Rate Respiratory 20 Rate [Anterior Bilateral] Blood Pressure Blood Pressure 101/51 116/56 [Left] O2 Sat by Pulse 96 98 Oximetry 12/03/18 12/03/18 12/03/18 07:27 08:00 10:21 Temperature 98.8 F Pulse Rate 80 80 Pulse Rate [ 85 Anterior Bilateral] Respiratory 24 Rate Respiratory 18 Rate [Anterior Bilateral] Blood Pressure 104/48 Blood Pressure 104/48 [Left] O2 Sat by Pulse 96 97 Oximetry - General physical appearance Narrative Exam: Gen: Awake and alert. NAD CV: S1, S2+ resp: even and unlabored Abd: soft, ND. wound vac in place with serosang drainage in canister. Good seal, no leak Ext: no c/c/e - Labs 12/03/18 05:35 12/03/18 05:35 Diabetes panel 12/03/18 Range/Units 05:35 Sodium 145 (137-145) mmol/L Potassium 4.3 (3.6-5.0) mmol/L Chloride 113.6 H (98-107) mmol/L Carbon Dioxide 19 L (22-30) mmol/L BUN 26 H (7-17) mg/dL Creatinine 3.1 H (0.7-1.2) mg/dL Glucose 193 H (65-100) mg/dL Calcium 8.8 (8.4-10.2) mg/dL Calcium panel 12/03/18 Range/Units 05:35 Calcium 8.8 (8.4-10.2) mg/dL Pituitary panel 12/03/18 Range/Units 05:35 Sodium 145 (137-145) mmol/L Potassium 4.3 (3.6-5.0) mmol/L Chloride 113.6 H (98-107) mmol/L Carbon Dioxide 19 L (22-30) mmol/L BUN 26 H (7-17) mg/dL Creatinine 3.1 H (0.7-1.2) mg/dL Glucose 193 H (65-100) mg/dL Calcium 8.8 (8.4-10.2) mg/dL Adrenal panel 12/03/18 Range/Units 05:35 Sodium 145 (137-145) mmol/L Potassium 4.3 (3.6-5.0) mmol/L Chloride 113.6 H (98-107) mmol/L Carbon Dioxide 19 L (22-30) mmol/L BUN 26 H (7-17) mg/dL Creatinine 3.1 H (0.7-1.2) mg/dL Glucose 193 H (65-100) mg/dL Calcium 8.8 (8.4-10.2) mg/dL
--- NOTE | 2018-12-03 15:31 | Progress Note ---
Assessment and Plan Assessment and plan: Patient is a 53-year-old female with a past medical history of hypertension, diabetes, seizures, meningioma, sarcoidosis, hypothyroidism, hyperlipidemia, sleep apnea, duodenal ulcer, morbid obesity, history of being bedbound who initially presented with abdominal pain and drainage and was noted ot have area of indurating with inflammation and ill-defined fluid and gas bubbles. On Evaluation of PEG tube site it was noted to have induration Febrile during admission to 100.9 with a leukocytosis of 15. Blood cultures from 11/25 are currently pending. She is currently receiving vancomycin and pip-tazo. Chest x-ray with mild fluid overload. Abdominal CT with fluids/gas bubble in the abdominal wall. She has been evaluated by general surgery and was taken for drainage in the OR. Copious pus noted with tunnelling abscess. Patient required 2 OR VISIT FOR drainage. Cultures still with no growth s/p OR drainage 11/26/18 Large abdominal wall abscess with cavity tunnelling towards the right lower abdomen for about 12 inches. Large amount of purulent fluid. Abscess cavity extends to fascia. Two small metallic foreign objects found in abscess cavity likely related to old PEG tube CT A/P IMPRESSION: 1. Area of induration with inflammation and ill-defined fluid and gas bubbles in the anterior abdominal wall with the epicenter in the left upper quadrant possibly related to previous gastrostomy tube. No discrete drainable fluid collection at this time CT head: IMPRESSION: No acute intracranial process is identified. Moderate bifrontal encephalomalacia is identified which is probably secondary to surgery. There is also suggestion of a left parafalcine extra-axial mass which probably represents a meningioma. 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 CT head per daughters request due to changing mental status, Daughter understands that we do not have Neurosurgery. Out Patient Neurosurgery follow up considering probably reoccurrance of mengioma in the setting of some mental status changes intermittently If patient is tolerating diet and clinically stable WITH IMPROVING RENAL FUNCTION in am WITH WOUND VAC arranged. The patient can safely be discharged back to snf. She will need outpatient follow up with Neurosurgery outpatient. Sepsis secondary to Abdominal abscess- POD 4 OR drainage JOEL secondary to vasomotor nephropathy with underlying contrast induced nephrop athy hypertension Diabetes Mellitus With hyperglycemia Chronic Focal infarct in the right occipital lobe Seizures meningioma Sarcoidosis hypothyroidism hyperlipidemia Sleep apnea Duodenal ulcer morbid obesity Acute Encephalopathy- worsening per daughter. Plan Supportive care Repeat chest xray improved Will need wound vac per wound team Discussed with Underground Electrician Avoid nephrtoxic meds ID input noted, antibiotics per them Follow up wound cultures Adjust Insulin dose, patient also on Hydrocortizone making BG management difficult Insulin FOR BETTER CONTROL OF BG. Follow cultures Continue appropriate outpatient medications DVT prophylaxis Nephrology recommend to monitor the cr level for 1 more day. History Interval history: patient was seen and evaluated this morning, patient didn't have any complaints. Hospitalist Physical - Physical exam Narrative exam: Not in cardiopulmonary distress. The patient appeared well nourished and normally developed. Vital signs as documented. Head exam is unremarkable. No scleral icterus . Neck is without jugular venous distension, thyromegaly, or carotid bruits. Lungs are clear to auscultation. Cardiac exam reveals regular rate and Rhythm. Abdominal exam reveals wound vac in place. Extremities are nonedematous and both femoral and pedal pulses are normal. MOLDED PARTS INSPECTOR: Alert and oriented 3. No focal weakness. - Constitutional Vitals: Temp Pulse Resp BP Pulse Ox 98.8 F 86 26 H 114/62 96 12/03/18 11:00 12/03/18 11:00 12/03/18 11:00 12/03/18 11:00 12/03/18 11:00 Results - Labs CBC & Chem 7: 12/03/18 05:35 12/03/18 05:35 Labs: Laboratory Last Values WBC 12.7 K/mm3 (4.5-11.0) H 12/03/18 05:35 RBC 3.38 M/mm3 (3.65-5.03) L 12/03/18 05:35 Hgb 7.7 gm/dl (10.1-14.3) L 12/03/18 05:35 Hct 25.8 % (30.3-42.9) L 12/03/18 05:35 MCV 76 fl (79-97) L 12/03/18 05:35 MCH 23 pg (28-32) L 12/03/18 05:35 MCHC 30 % (30-34) 12/03/18 05:35 RDW 16.1 % (13.2-15.2) H 12/03/18 05:35 Plt Count 536 K/mm3 (140-440) H 12/03/18 05:35 Lymph % (Auto) Certified Ophthalmic Surgical Assistant 11/26/18 04:15 [place] % (Auto) Certified Ophthalmic Surgical Assistant 11/26/18 04:15 Eos % (Auto) Certified Ophthalmic Surgical Assistant 11/26/18 04:15 Baso % (Auto) Certified Ophthalmic Surgical Assistant 11/26/18 04:15 Lymph # Certified Ophthalmic Surgical Assistant 11/26/18 04:15 [place] # Certified Ophthalmic Surgical Assistant 11/26/18 04:15 Eos # Certified Ophthalmic Surgical Assistant 11/26/18 04:15 Baso # Certified Ophthalmic Surgical Assistant 11/26/18 04:15 Add Manual Diff Complete 11/30/18 07:15 Total Counted 100 11/30/18 07:15 Seg Neutrophils % Certified Ophthalmic Surgical Assistant 11/26/18 04:15 Seg Neuts % (Manual) 64.0 % (40.0-70.0) 11/30/18 07:15 6.0 % 11/30/18 07:15 15.0 % (13.4-35.0) 11/30/18 07:15 Reactive Lymphs % (Man) 0 % 11/30/18 07:15 7.0 % (0.0-7.3) 11/30/18 07:15 2.0 % (0.0-4.3) 11/30/18 07:15 0 % (0.0-1.8) 11/30/18 07:15 3.0 % 11/30/18 07:15 2.0 % 11/30/18 07:15 1.0 % 11/30/18 07:15 0 % 11/30/18 07:15 Nucleated RBC % Not Reportable 11/30/18 07:15 Seg Neutrophils # Certified Ophthalmic Surgical Assistant 11/26/18 04:15 Seg Neutrophils # Man 8.3 K/mm3 (1.8-7.7) H 11/30/18 07:15 Band Neutrophils # 0.8 K/mm3 11/30/18 07:15 2.0 K/mm3 (1.2-5.4) 11/30/18 07:15 Abs React Lymphs (Man) 0.0 K/mm3 11/30/18 07:15 0.9 K/mm3 (0.0-0.8) H 11/30/18 07:15 0.3 K/mm3 (0.0-0.4) 11/30/18 07:15 0.0 K/mm3 (0.0-0.1) 11/30/18 07:15 0.4 K/mm3 11/30/18 07:15 0.3 K/mm3 11/30/18 07:15 0.1 K/mm3 11/30/18 07:15 Blast Cells # 0.0 K/mm3 11/30/18 07:15 WBC Morphology Not Reportable 11/30/18 07:15 Hypersegmented Neuts Not Reportable 11/30/18 07:15 Hyposegmented Neuts Not Reportable 11/30/18 07:15 Hypogranular Neuts Not Reportable 11/30/18 07:15 Not Reportable 11/30/18 07:15 Not Reportable 11/30/18 07:15 Not Reportable 11/30/18 07:15 Not Reportable 11/30/18 07:15 Not Reportable 11/30/18 07:15 Not Reportable 11/30/18 07:15 Consistent w auto 11/30/18 07:15 Not Reportable 11/30/18 07:15 Plt Clumps, EDTA Not Reportable 11/30/18 07:15 Not Reportable 11/30/18 07:15 Not Reportable 11/30/18 07:15 Not Reportable 11/30/18 07:15 Plt Morphology Comment Not Reportable 11/30/18 07:15 RBC Morphology Not Reportable 11/30/18 07:15 Dimorphic RBCs Not Reportable 11/30/18 07:15 Not Reportable 11/30/18 07:15 1+ 11/30/18 07:15 Not Reportable 11/30/18 07:15 1+ 11/30/18 07:15 1+ 11/30/18 07:15 Not Reportable 11/30/18 07:15 Not Reportable 11/30/18 07:15 Not Reportable 11/30/18 07:15 Not Reportable 11/30/18 07:15 Not Reportable 11/30/18 07:15 Not Reportable 11/30/18 07:15 Not Reportable 11/30/18 07:15 Not Reportable 11/30/18 07:15 Not Reportable 11/30/18 07:15 Not Reportable 11/30/18 07:15 Not Reportable 11/30/18 07:15 Not Reportable 11/30/18 07:15 Not Reportable 11/30/18 07:15 Not Reportable 11/30/18 07:15 Acanthocytes (Spur) Not Reportable 11/30/18 07:15 Rouleaux Not Reportable 11/30/18 07:15 Not Reportable 11/30/18 07:15 Not Reportable 11/30/18 07:15 Not Reportable 11/30/18 07:15 Not Reportable 11/30/18 07:15 Hem Pathologist Commnt No 11/30/18 07:15 Sodium 145 mmol/L (137-145) 12/03/18 05:35 Potassium 4.3 mmol/L (3.6-5.0) 12/03/18 05:35 Chloride 113.6 mmol/L (98-107) H 12/03/18 05:35 Carbon Dioxide 19 mmol/L (22-30) L 12/03/18 05:35 17 mmol/L 12/03/18 05:35 BUN 26 mg/dL (7-17) H 12/03/18 05:35 3.1 mg/dL (0.7-1.2) H 12/03/18 05:35 Estimated GFR 19 ml/min 12/03/18 05:35 8 % 12/03/18 05:35 Glucose 193 mg/dL (65-100) H 12/03/18 05:35 POC Glucose 241 (70-105) H 12/03/18 11:44 Lactic Acid 2.40 mmol/L (0.7-2.0) H* 11/25/18 16:05 Calcium 8.8 mg/dL (8.4-10.2) 12/03/18 05:35 Phosphorus 4.20 mg/dL (2.5-4.5) 11/30/18 07:15 Magnesium 1.70 mg/dL (1.7-2.3) 11/30/18 07:15 0.50 mg/dL (0.1-1.2) 11/25/18 15:22 AST 28 units/L (5-40) 11/25/18 15:22 ALT 27 units/L (7-56) 11/25/18 15:22 236 units/L (35-129) H 11/25/18 15:22 265 units/L (30-135) H 12/01/18 05:24 7.5 g/dL (6.3-8.2) 11/25/18 15:22 3.2 g/dL (3.9-5) L 11/25/18 15:22 0.7 % 11/25/18 15:22 Yellow (Yellow) 12/02/18 06:31 Slightly-cloudy (Clear) 12/02/18 06:31 5.0 (5.0-7.0) 12/02/18 06:31 Ur Specific Joanna 1.011 (1.003-1.030) 12/02/18 06:31 <15 mg/dl mg/dL (Negative) 12/02/18 06:31 Neg mg/dL (Negative) 12/02/18 06:31 Neg mg/dL (Negative) 12/02/18 06:31 Sm (Negative) 12/02/18 06:31 Neg (Negative) 12/02/18 06:31 Neg (Negative) 12/02/18 06:31 < 2.0 mg/dL (<2.0) 12/02/18 06:31 Ur Leukocyte Esterase Lg (Negative) 12/02/18 06:31 5.0 /HPF (0.0-6.0) 12/02/18 06:31 8.0 /HPF (0.0-6.0) 12/02/18 06:31 U Epithel Cells (Auto) 14.0 /HPF (0-13.0) H 12/02/18 06:31 2+ /HPF (Negative) 11/29/18 22:55 Few /HPF 11/29/18 22:55 1+ /HPF 12/02/18 06:31 None seen (None Seen) 12/02/18 06:31 55.6 mg/dL (0.1-20.0) H 11/29/18 22:55 35 mmol/L 11/29/18 22:55 Vancomycin Trough 25.2 ug/mL (5.0-20.0) H 11/28/18 04:53 Active Medications - Current Medications Current Medications: Generic Name Dose Route Start Last Admin Trade Name Freq PRN Reason Stop Dose Admin Acetaminophen 650 mg 11/26/18 00:14 11/30/18 20:12 Tylenol PO 650 mg Q4H PRN Administration Pain MILD(1-3)/Fever >100.5/TANG Acetaminophen/Hydrocodone Bitart 1 each 11/26/18 15:00 12/01/18 22:19 [place] 5/325 PO 1 each Q4H PRN Administration Pain, Moderate (4-6) Albuterol 2.5 mg 12/01/18 14:00 12/03/18 13:06 Proventil IH Not Given Q6HRT VIOLETA Cholecalciferol 1,000 unit 11/27/18 10:00 12/03/18 10:19 Vitamin D3 PO 1,000 unit QDAY VIOLETA Administration Dextrose 50 ml 11/26/18 17:17 D50w (25gm) Syringe IV PRN PRN Hypoglycemia Enoxaparin Sodium 30 mg 11/29/18 10:00 12/03/18 10:19 Lovenox SUB-Q 30 mg QDAY VIOLETA Administration Famotidine 10 mg 11/30/18 22:00 12/03/18 10:20 Pepcid PO 10 mg BID VIOLETA Administration Hydrocortisone Acetate 10 mg 11/26/18 22:00 12/03/18 10:19 Cortef PO 10 mg BID VIOLETA Administration Daptomycin 700 mg/ Sodium 100 mls @ 200 mls/hr 11/30/18 10:00 12/02/18 11:18 Chloride IV 200 mls/hr Q48H VIOLETA Administration Protocol Fluconazole 200 mg in 100 mls @ 100 mls/hr 12/01/18 15:00 12/03/18 10:20 Diflucan IV 100 mls/hr Q24HR VIOLETA Administration Protocol Metronidazole 500 mg in 100 mls @ 100 mls/hr 12/01/18 14:30 12/03/18 13:19 Flagyl 500 Mg/100 Ml IV 100 mls/hr Q8HR VIOLETA Administration Protocol Aztreonam 1 gm in 50 mls @ 50 mls/hr 12/01/18 15:00 12/03/18 13:19 Azactam/Ns 1 Gm/50 Ml IV 50 mls/hr Q8HR VIOLETA Administration Protocol Sodium Chloride 1,000 mls @ 75 mls/hr 12/02/18 22:00 12/02/18 22:30 Nacl 0.45% 1000 Ml IV 75 mls/hr DIRECT VIOLETA Administration Insulin Glargine 70 units 11/27/18 16:25 12/02/18 23:39 Lantus SUB-Q Not Given QHS [facility] Insulin Human Lispro 0 unit 11/26/18 18:00 12/03/18 13:08 Humalog SUB-Q 4 unit Q6HR VIOLETA Administration Protocol Lamotrigine 25 mg 11/26/18 22:00 12/03/18 10:20 Lamictal PO 25 mg BID VIOLETA Administration Levothyroxine Sodium 50 mcg 11/27/18 10:00 12/03/18 10:20 Synthroid PO 50 mcg QAM VIOLETA Administration Metoprolol Tartrate 50 mg 11/26/18 22:00 12/03/18 10:21 Lopressor PO Not Given BID VIOLETA Morphine Sulfate 2 mg 11/26/18 15:00 11/27/18 18:58 Morphine IV 2 mg Q4H PRN Administration Pain , Severe (7-10) Ondansetron HCl 4 mg 11/26/18 00:14 Zofran IV Q4H PRN Nausea And Vomiting Pregabalin 75 mg 11/29/18 14:00 12/03/18 10:19 Lyrica PO 75 mg BID VIOLETA Administration Sodium Chloride 10 ml 11/26/18 10:00 12/03/18 10:28 Sodium Chloride Flush Syringe 10 Ml IV 10 ml BID VIOLETA Administration Sodium Chloride 10 ml 11/26/18 00:14 Sodium Chloride Flush Syringe 10 Ml IV PRN PRN LINE FLUSH Nutrition/Malnutrition Assess - Dietary Evaluation Nutrition/Malnutrition Findings: Nutrition Notes Start: 12/02/18 15:52 Freq: Status: Active Protocol: Document 12/02/18 15:52 OH (Rec: 12/02/18 16:09 OH [id number]) Nutrition Notes Need for Assessment generated from: LOS Initial or Follow up Assessment Current Diagnosis Acute Kidney Injury,Diabetes, Sepsis,Hypertension Other Pertinent Diagnosis abdominal abscess; recent surgery; wound vac Current Diet cardiac/consistent CHO Labs/Tests Cr 3.3 GLU 255 BUN 24 na 146 K+ 5.1 Pertinent Medications Humalog Lantus Synthroid VIT D 3 LOVENOX Height 5 ft 7 in Weight 151.8 kg [place] Body Weight (kg) 61.36 BMI 52.4 Weight Status Morbidly Obese Subjective/Other Information LOS: Pt. lying in bed asleep. Pt. noted to have tray with ~ 15% of meal consumed. No ONS ordered at this time. Wound vac in place. Percent of energy/protein needs met: <25/25% Burn Absent Trauma Absent Skin Integrity/Comment abdominal abscess; recent surgery; Current % PO Poor (25-49%) Protein-Calorie Malnutrition Severe #2 Nutrition Diagnosis Increased nutrient needs ( specify in comment below) Etiology abdominal abscess As Evidenced by Signs and Symptoms wound #1 Nutrition Diagnosis Inadequate oral intake Etiology lethargic/pain medication As Evidenced by Signs and Symptoms <50% PRO/KCAL needs met Is patient on ventilator? No Is Patient Ambulatory and/or Out of Bed No REE-([facility]-confined to bed) 2590.020 Kcal/Kg value to use for calculation 16 Approximate Energy Requirements Using 2429 kcal/Kg Calculation Used for Recommendations Kcal/kg Additional Notes PROTEIN: 1.2-1.5 g/kg/IBW 73- 92 g/day FLUID: 1 mL/kcal Nutrition Intervention Change Diet Order: cont cardiac/consistent CHO Add Supplement/Snack (indicate name/kcal ensure clear BID /protein ) Provides kCal: 480 Provides Protein (gm) 16 Goal #1 po intake to exceed 75% of PRO /KCAL requirements Goal #2 Initiation ONS Follow-Up By: 12/04/18 Additional Comments Monitor po intake/ONS tolerance/ TF
[2018-12-03] MEDS: NACL 0.45% 1000 ML 1,000 ML IV SCH (20:43)
[2018-12-03] MEDS: LANTUS SUB-Q SCH (21:48)
[2018-12-04] MEDS: PROVENTIL IH SCH ×3 (01:30→13:38)
[2018-12-04] MEDS: HumaLOG SUB-Q SCH ×3 (01:51→12:19)
[2018-12-04] MEDS: SODIUM CHLORIDE FLUSH SYRINGE 10 ML IV SCH ×2 (01:52→09:28)
[2018-12-04] MEDS: FLAGYL 500 MG/100 ML 500 MG/100 ML BAG IV SCH (05:50)
[2018-12-04] MEDS: AZACTAM/NS 1 GM/50 ML 1 GM/50 ML VIAL IV SCH (05:53)
[2018-12-04 06:11] LABS: Calcium 8.6 mg/dL (8.4-10.2)
[2018-12-04 06:28] LABS: Hematocrit 25.5 % (30.3-42.9); Hemoglobin 7.7 gm/dl (10.1-14.3); Mean Corpuscular HGB Conc 30 % (30-34); Mean Corpuscular Volume 76 fl (79-97); Platelet Count 526 K/mm3 (140-440); Red Blood Count 3.38 M/mm3 (3.65-5.03); Red Cell Distribution Width 16.6 % (13.2-15.2)
[2018-12-04 08:41] VITALS: BP 94/54
[2018-12-04 08:56] LABS: Band Neutrophils # (Manual) 0.1 K/mm3; Basophils % (Manual) 0 % (0.0-1.8); Total Cells Counted 100
[2018-12-04 08:57] LABS: Anisocytosis Few; Hypochromasia Few; Large Platelets Rare; Platelet Estimate Consistent w Auto; Poikilocytosis Few
[2018-12-04] MEDS: VITAMIN D3 PO SCH (09:25)
[2018-12-04] MEDS: LYRICA PO SCH (09:26)
[2018-12-04] MEDS: PEPCID PO SCH (09:26)
[2018-12-04] MEDS: LOPRESSOR PO SCH (09:26)
[2018-12-04] MEDS: CORTEF PO SCH (09:26)
[2018-12-04] MEDS: LaMICtal PO SCH (09:26)
[2018-12-04] MEDS: LOVENOX SUB-Q SCH (09:27)
[2018-12-04] MEDS: SYNTHROID PO SCH (09:29)
[2018-12-04] MEDS: DAPTOMYCIN IV SCH (09:30)
[2018-12-04] MEDS: NACL 0.9% IV SCH (09:30)
[2018-12-04] MEDS: DIFLUCAN 200 MG/100 ML BAG IV SCH (09:30)
--- NOTE | 2018-12-04 10:34 | Progress Note ---
Assessment and Plan Cultures: 11/25/18 Blood: no growth 11/25/18 Wound CX: light growth of skin otoniel 11/26/18 OR Wound CX: normal skin otoniel 12/01/18 Blood: no growth to date 12/01/18 Urine: in progress A/P: Ms. Estrada is a 53-year-old female with a past medical history of hypertension, diabetes, history of being bedbound presents with sepsis secondary to abdominal wall abscess 1. Sepsis: . Resolved. Increasing leukocytosis (on IV steroids); secondary to abdominal wall abscess. Persistent fever unclear possibly due to ? drug fever secondary to zosyn (h/o penicillin allergy). Other possibilities ?UTI, ?bilateral groin L>R candidal intertrigo with secondary bacterial infection. Repeat CXR negative. 2. Abdominal wall abscess in a patient with morbid obesity: S/p incision and drainage, washout abdominal wall abscess with wound vac placement 11/29/18. Large amount of purulent drainage within large abscess cavity. Fascia and subcutaneous tissue healthy. On daptomycin and pip-tazo. 3. DM2 4. JOEL: Worsening. Antibiotics renally dosed. Continue to monitor serum creatinine. 5. Presumed bilateral groin L>R candidal intertrigo with secondary bacterial infection. 6. AMS : improved Recs: discontinued Flagyl and Aztreonam Continue IV Daptomycin 750 mg every 48 hours, D5 of 10 via midline Continue PO fluconazole 200 mg for 7 days Started IV Ceftriaxone 2 gm every 24 hours, end date for all abx: 12/09/2018 Orders placed with case management Follow-up ID clinic in 2 weeks ( sent to olericulturist) [facility] M: [phone] O:[phone] Subjective Date of service: 12/04/18 Principal diagnosis: abdominal wall abscess Interval history: Patient see and examined. Awake. Alert. More alert. Following simple commands easily. Reports generalized weakness. + wound vac Objective - Exam Narrative Exam: Constitutional: Alert. awake. Follows command. No acute distress. Head, Ears, Nose: Normocephalic, atraumatic. External ears, nose normal Eyes: Conjunctivae/corneas clear. No icterus. No ptosis. Neck: Supple, no meningeal signs Oral: fair dentition, moist mucous membranes Cardiovascular: S1, S2 normal. Normal rhythm Respiratory: Good air entry, clear to auscultation bilaterally GI: tender due to surgery. +wound Vac Musculoskeletal: No pedal edema, Skin: No rash or abscess Hem/Lymphatic: No palpable cervical or supraclavicular nodes. No lymphangitis Psych: calm Neurological: Moves all extremities, no focal defects - Constitutional Vitals: Vital Signs Temp Pulse Resp BP Pulse Ox 97.8 F 77 18 94/54 99 12/04/18 08:40 12/04/18 08:40 12/04/18 08:40 12/04/18 08:40 12/04/18 08:40 Temperature -Last 24 Hours Temperature 97.8 F Temperature 98.2 F Temperature 98.9 F Temperature 98.3 F Temperature 98 F Temperature 98.8 F Temperature 98.8 F - Labs CBC & Chem 7: 12/04/18 05:38 12/04/18 05:38 Labs: Abnormal lab results 12/03/18 12/03/18 12/04/18 Range/Units 11:44 16:04 00:23 WBC (4.5-11.0) K/mm3 RBC (3.65-5.03) M/mm3 Hgb (10.1-14.3) gm/dl Hct (30.3-42.9) % MCV (79-97) fl MCH (28-32) pg RDW (13.2-15.2) % Plt Count (140-440) K/mm3 Seg Neuts % (Manual) (40.0-70.0) % Nucleated RBC % (0.0-0.9) % Seg Neutrophils # Man (1.8-7.7) K/mm3 Chloride (98-107) mmol/L Carbon Dioxide (22-30) mmol/L BUN (7-17) mg/dL Creatinine (0.7-1.2) mg/dL Glucose (65-100) mg/dL POC Glucose 241 H 234 H 194 H (70-105) 12/04/18 12/04/18 12/04/18 Range/Units 05:38 05:38 06:04 WBC 13.8 H (4.5-11.0) K/mm3 RBC 3.38 L (3.65-5.03) M/mm3 Hgb 7.7 L (10.1-14.3) gm/dl Hct 25.5 L (30.3-42.9) % MCV 76 L (79-97) fl MCH 23 L (28-32) pg RDW 16.6 H (13.2-15.2) % Plt Count 526 H (140-440) K/mm3 Seg Neuts % (Manual) 73.0 H (40.0-70.0) % Nucleated RBC % 1.0 H (0.0-0.9) % Seg Neutrophils # Man 10.1 H (1.8-7.7) K/mm3 Chloride 112.5 H (98-107) mmol/L Carbon Dioxide 18 L (22-30) mmol/L BUN 27 H (7-17) mg/dL Creatinine 2.9 H (0.7-1.2) mg/dL Glucose 167 H (65-100) mg/dL POC Glucose 172 H (70-105)
--- NOTE | 2018-12-04 10:58 | Progress Note ---
Assessment and Plan 1. Acute kidney injury: JOEL likley multifactorial in the setting of sepsis, hypotension and IV contrast. CT abdomen was negative for hydro. Renal function is improving. Monitor renal function. Avoid nephrotoxic agents. Meds dosage based on GFR. 2. FEN: Metabolic acidosis, stable. Hyperkalemia, improved. Monitor lytes. 3. Abdominal wall abscess: S/p I&D. 4. Sepsis: Followed by ID. 5. DM Type 2. 6. Seizures. 7. Meningioma. 8. Sleep apnea. 9. PUD. F/u in 1-2 weeks. Subjective Date of service: 12/04/18 Principal diagnosis: abdominal wall abscess Interval history: Patient was seen and examined at the bedside. Objective - Vital Signs Vital signs: Vital Signs - 12hr 12/04/18 12/04/18 12/04/18 00:14 01:30 03:49 Temperature 98.9 F 98.2 F Pulse Rate 81 80 Pulse Rate [ 89 Anterior Bilateral] Respiratory 19 19 Rate Respiratory 19 Rate [Anterior Bilateral] Blood Pressure 121/67 107/53 Blood Pressure [Left] O2 Sat by Pulse 98 97 Oximetry 12/04/18 08:40 Temperature 97.8 F Pulse Rate 77 Pulse Rate [ Anterior Bilateral] Respiratory 18 Rate Respiratory Rate [Anterior Bilateral] Blood Pressure Blood Pressure 94/54 [Left] O2 Sat by Pulse 99 Oximetry - General Appearance General appearance: well-developed, well-nourished, appears stated age, obese, other (no distress) EENT: ATNC, PERRL, hearing intact Neck: supple Respiratory: Present: Clear to Ascultation Cardiology: regular, S1S2, no murmurs Gastrointestinal: normoactive bowel sounds, no tenderness, other (wound vac noted) Integumentary: no rash Neurologic: other (able to move extremities) Musculoskeletal: other (1+ edema of both LEs noted) - Lab 12/04/18 05:38 12/04/18 05:38 Most recent lab results Calcium 8.6 mg/dL (8.4-10.2) 12/04/18 05:38 Phosphorus 4.20 mg/dL (2.5-4.5) 11/30/18 07:15 Magnesium 1.70 mg/dL (1.7-2.3) 11/30/18 07:15 55.6 mg/dL (0.1-20.0) H 11/29/18 22:55 35 mmol/L 11/29/18 22:55 Medications & Allergies - Medications Allergies/Adverse Reactions: Allergies erythromycin base [From Erythrocin] Allergy (Verified 11/26/18 06:03) Itching Penicillins Allergy (Verified 11/26/18 06:02) Rash Home Medications: Home Medications Medication Instructions Recorded Confirmed Last Taken Type Atorvastatin Calcium 40 mg PO BID 11/26/18 11/26/18 11/25/18 08:00 History Cholecalciferol Vit D3 [Vitamin D3 1,000 1000units PO QDAY 11/26/18 11/26/18 11/25/18 08:00 History 1,000 UNIT TAB] Eliquis 5 mg PO QDAY 11/26/18 11/26/18 Unknown History HYDROcodone/APAP 5-325 [[place] 1 each PO Q4HR PRN 11/26/18 11/26/18 Unknown History 5/325] Hydrocortisone [Cortef TAB] 10 mg PO BID 11/26/18 11/26/18 Unknown History Insulin Glargine,Hum.rec.anlog 60 unit SQ QHS 11/26/18 11/26/18 Unknown History [Lantus Solostar] Insulin Glargine,Hum.rec.anlog See Protocol SUB-Q QACHS 11/26/18 11/29/18 Unknown History [Lantus Solostar] Insulin Lispro Prot/Lispro 45 1000units SUB-Q BID 11/26/18 11/29/18 Unknown History [HumaLOG Mix 75/25 Vial] Lasix TAB 20 mg PO BID 11/26/18 11/26/18 Unknown History Levothyroxine [Synthroid] 50 mcg PO QAM 11/26/18 11/26/18 11/24/18 08:00 History Lispro Insulin [HumaLOG] See Protocol SUB-Q ACHS 11/26/18 11/29/18 11/25/18 History Metoprolol [Lopressor TAB] 50 mg PO BID 11/26/18 11/26/18 Unknown History Mometasone 0.1% (Nf) 0.1 units TP BID 11/26/18 11/29/18 Unknown History Pantoprazole [Protonix] 40 mg PO BID 11/26/18 11/26/18 Unknown History Petrolatum,White [Vaseline White 5 gm TP BID 11/26/18 11/26/18 Unknown History Petroleum] Pregabalin [Lyrica] 150 mg PO BID 11/26/18 11/26/18 11/25/18 08:00 History lamoTRIgine [LaMICtal] 25 mg PO BID 11/26/18 11/26/18 Unknown History Active Medications: Generic Name Dose Route Start Last Admin Trade Name Freq PRN Reason Stop Dose Admin Acetaminophen 650 mg 11/26/18 00:14 11/30/18 20:12 Tylenol PO 650 mg Q4H PRN Administration Pain MILD(1-3)/Fever >100.5/TANG Acetaminophen/Hydrocodone Bitart 1 each 11/26/18 15:00 12/01/18 22:19 [place] 5/325 PO 1 each Q4H PRN Administration Pain, Moderate (4-6) Albuterol 2.5 mg 12/01/18 14:00 12/04/18 07:47 Proventil IH 2.5 mg Q6HRT VIOLETA Administration Cholecalciferol 1,000 unit 11/27/18 10:00 12/04/18 09:25 Vitamin D3 PO 1,000 unit QDAY VIOLETA Administration Dextrose 50 ml 11/26/18 17:17 D50w (25gm) Syringe IV PRN PRN Hypoglycemia Enoxaparin Sodium 30 mg 11/29/18 10:00 12/04/18 09:27 Lovenox SUB-Q 30 mg QDAY VIOLETA Administration Famotidine 10 mg 11/30/18 22:00 12/04/18 09:26 Pepcid PO 10 mg BID VIOLETA Administration Hydrocortisone Acetate 10 mg 11/26/18 22:00 12/04/18 09:26 Cortef PO 10 mg BID VIOLETA Administration Daptomycin 700 mg/ Sodium 100 mls @ 200 mls/hr 11/30/18 10:00 12/04/18 09:30 Chloride IV 200 mls/hr Q48H VIOLETA Administration Protocol Fluconazole 200 mg in 100 mls @ 100 mls/hr 12/01/18 15:00 12/04/18 09:30 Diflucan IV 100 mls/hr Q24HR VIOLETA Administration Protocol Metronidazole 500 mg in 100 mls @ 100 mls/hr 12/01/18 14:30 12/04/18 07:38 Flagyl 500 Mg/100 Ml IV Infused Q8HR VIOLETA Infusion Protocol Aztreonam 1 gm in 50 mls @ 50 mls/hr 12/01/18 15:00 12/04/18 07:39 Azactam/Ns 1 Gm/50 Ml IV Infused Q8HR VIOLETA Infusion Protocol Sodium Chloride 1,000 mls @ 75 mls/hr 12/02/18 22:00 12/03/18 20:43 Nacl 0.45% 1000 Ml IV 75 mls/hr DIRECT VIOLETA Administration Insulin Glargine 70 units 11/27/18 16:25 12/03/18 21:48 Lantus SUB-Q 70 units QHS VIOLETA Administration Insulin Human Lispro 0 unit 11/26/18 18:00 12/04/18 06:20 Humalog SUB-Q 3 unit Q6HR VIOLETA Administration Protocol Lamotrigine 25 mg 11/26/18 22:00 12/04/18 09:26 Lamictal PO 25 mg BID VIOLETA Administration Levothyroxine Sodium 50 mcg 11/27/18 10:00 12/04/18 09:29 Synthroid PO 50 mcg QAM VIOLETA Administration Metoprolol Tartrate 50 mg 11/26/18 22:00 12/04/18 09:26 Lopressor PO 50 mg BID VIOLETA Administration Morphine Sulfate 2 mg 11/26/18 15:00 11/27/18 18:58 Morphine IV 2 mg Q4H PRN Administration Pain , Severe (7-10) Ondansetron HCl 4 mg 11/26/18 00:14 Zofran IV Q4H PRN Nausea And Vomiting Pregabalin 75 mg 11/29/18 14:00 12/04/18 09:26 Lyrica PO 75 mg BID VIOLETA Administration Sodium Chloride 10 ml 11/26/18 10:00 12/04/18 09:28 Sodium Chloride Flush Syringe 10 Ml IV 10 ml BID VIOLETA Administration Sodium Chloride 10 ml 11/26/18 00:14 Sodium Chloride Flush Syringe 10 Ml IV PRN PRN LINE FLUSH
--- NOTE | 2018-12-04 12:12 | Discharge Summary ---
Providers - Providers Date of Admission: 11/25/18 21:58 Date of discharge: 12/04/18 Attending physician: YESI PARNELL MD 11/25/18 16:35 Consult to Physician [CONS] Stat Comment: Consulting Provider: NICA CHEEMA Physician Instructions: Reason For Exam: abdominal wall abscess 11/26/18 09:10 Consult to Physician [CONS] Routine Comment: CONSULT COMPLETED - PRIYA Consulting Provider: DEANNA SALAZAR Physician Instructions: Reason For Exam: SEPSIS 11/26/18 11:04 Consult to Wound/ET Nurse [CONS] Routine Reason For Exam: wound eval 11/29/18 11:10 Consult to Physician [CONS] Routine Comment: Consulting Provider: LIBERTAD HERNANDEZ Physician Instructions: Reason For Exam: JOEL 12/01/18 10:14 Midline [Consult to PICC Line RN] [CONS] Stat Reason For Exam: poor venous access Type Line:: Midline [facility] Reason for admission: abdominal abscess, cellulitis Condition: Stable Hospital course: Patient is a 53-year-old female with a past medical history of hypertension, diabetes, seizures, meningioma, sarcoidosis, hypothyroidism, hyperlipidemia, sleep apnea, duodenal ulcer, morbid obesity, history of being bedbound who initially presented with abdominal pain and drainage and was noted ot have area of indurating with inflammation and ill-defined fluid and gas bubbles. On Evaluation of PEG tube site it was noted to have induration Febrile during admission to 100.9 with a leukocytosis of 15. Blood cultures from 11/25 are negative. She was treated with vancomycin and pip-tazo. Chest x- ray with mild fluid overload. Abdominal CT with fluids/gas bubble in the abdominal wall. She has been evaluated by general surgery and was taken for drainage in the OR. Copious pus noted with tunnelling abscess. Patient required 2 OR VISIT FOR drainage. Cultures still with no growth s/p OR drainage 11/26/18; Large abdominal wall abscess with cavity tunnelling towards the right lower abdomen for about 12 inches. Large amount of purulent fluid. Abscess cavity extends to fascia. Two small metallic foreign objects found in abscess cavity likely related to old PEG tube CT A/P IMPRESSION: Area of induration with inflammation and ill-defined fluid and gas bubbles in the anterior abdominal wall with the epicenter in the left upper quadrant possibly related to previous gastrostomy tube. No discrete drainable fluid collection at this time CT head: IMPRESSION: No acute intracranial process is identified. Moderate bifrontal encephalomalacia is identified which is probably secondary to surgery. There is also suggestion of a left parafalcine extra-axial mass which probably represents a meningioma. 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 CT head per daughters request due to changing mental status, Daughter understands that we do not have Neurosurgery. Out Patient Neurosurgery follow up considering probably reoccurrance of mengioma in the setting of some mental status changes intermittently. She will need outpatient follow up with Neurosurgery outpatient. Patient was discharged with IV daptomycin and ceftriaxone to be finished on 12/09/18 and fluconazole for 2 weeks. ID arrange the antibiotics and discharged to SNF with wound vac. Disposition: DC/TX-03 SNF W [facility] Time spent for discharge: 32 minutes - Discharge Diagnoses (1) Abdominal wall abscess Status: Acute (2) Abdominal wall cellulitis Status: Acute Core Measure Documentation - Palliative Care Palliative Care/ Comfort Measures: Not Applicable - Core Measures Any of the following diagnoses?: none Exam - Physical Exam Narrative exam: Not in cardiopulmonary distress. The patient appeared well nourished and normally developed. Vital signs as documented. Head exam is unremarkable. No scleral icterus . Neck is without jugular venous distension, thyromegaly, or carotid bruits. Lungs are clear to auscultation. Cardiac exam reveals regular rate and Rhythm. Abdominal exam reveals wound vac in place. Extremities are nonedematous and both femoral and pedal pulses are normal. RIPSAW GRADER: Alert and oriented 3. No focal weakness. - Constitutional Vitals: Temp Pulse Resp BP Pulse Ox 97.8 F 77 18 94/54 99 12/04/18 08:40 12/04/18 08:40 12/04/18 08:40 12/04/18 08:40 12/04/18 08:40 Plan Activity: no restrictions Weight Bearing Status: Full Weight Bearing Diet: regular Follow up with: KEE ZIEGLER MD [Primary Care Provider] - 3-5 Days LIBERTAD HERNANDEZ MD [Staff Physician] - 14 Days
[2018-12-04] MEDS ORDERED: ROCEPHIN/NS 2 GM/100 ML 2 GM/100 ML BAG IV SCH (15:00)
== END 2018-12-04 13:50 | DRG 856 ==
LOC: ED 14:24 → 3B-SURG 21:58
PROVIDERS: ADMIT Internal Medicine; ATTEND Internal Medicine
PROC: 0J980ZZ Drainage of Abdomen Subcutaneous Tissue and Fascia, Open Approach (ICD-10-PCS; principal; 2018-11-26)
PROC: 0JB80ZZ Excision of Abdomen Subcutaneous Tissue and Fascia, Open Approach (ICD-10-PCS; 2018-11-26)
PROC: 0JC80ZZ Extirpation of Matter from Abdomen Subcutaneous Tissue and Fascia, Open Approach (ICD-10-PCS; 2018-11-26)
PROC: 0J9800Z Drainage of Abdomen Subcutaneous Tissue and Fascia with Drainage Device, Open Approach (ICD-10-PCS; 2018-11-28)
PROC: 05HY33Z Insertion of Infusion Device into Upper Vein, Percutaneous Approach (ICD-10-PCS; 2018-12-01)
DX: T81.41XA Infection following a procedure, superficial incisional surgical site, initial encounter (principal); A41.9 Sepsis, unspecified organism; N17.0 Acute kidney failure with tubular necrosis; G93.40 Encephalopathy, unspecified; L02.211 Cutaneous abscess of abdominal wall; I10 Essential (primary) hypertension; R56.9 Unspecified convulsions; D86.9 Sarcoidosis, unspecified; E03.9 Hypothyroidism, unspecified; Z68.43 Body mass index [BMI] 50.0-59.9, adult; E78.5 Hyperlipidemia, unspecified; E66.01 Morbid (severe) obesity due to excess calories; D32.9 Benign neoplasm of meninges, unspecified; K26.9 Duodenal ulcer, unspecified as acute or chronic, without hemorrhage or perforation; L03.311 Cellulitis of abdominal wall; L98.499 Non-pressure chronic ulcer of skin of other sites with unspecified severity; E11.65 Type 2 diabetes mellitus with hyperglycemia; K27.9 Peptic ulcer, site unspecified, unspecified as acute or chronic, without hemorrhage or perforation; G47.30 Sleep apnea, unspecified; Y83.8 Other surgical procedures as the cause of abnormal reaction of the patient, or of later complication, without mention of misadventure at the time of the procedure; N14.1 Nephropathy induced by other drugs, medicaments and biological substances; T50.8X5A Adverse effect of diagnostic agents, initial encounter; Y92.89 Other specified places as the place of occurrence of the external cause; L30.4 Erythema intertrigo; Z74.01 Bed confinement status; Z79.4 Long term (current) use of insulin
CPT/HCPCS: 36415; 70450; 71045; 74177; 76770; 80048; 80053; 80202; 81001; 82140; 82550; 82565; 82570; 82962; 83735; 84100; 84300; 84520; 85007; 85025; 85027; 87040; 87075; 87086; 87116; 88300; 88302; 89050; 93005; 93010; 94640; 94760; 96361; 96365; 96366; G0378; A4217; J0878; J1170; J1450; J1650; J1815; J2250; J2270; J2543; J2704; J3010; J3370; J7030; J7040; Q9967

== ENCOUNTER 2019-05-16 11:59 | Inpatient (IN) | payer MEDICAID ==
[2019-05-16] MEDS ORDERED: SODIUM CHLORIDE 0.9% 500 ML 500 ML IV ONE (12:57)
[2019-05-16] MEDS ORDERED: SODIUM CHLORIDE 0.9% 1000 ML 1,000 ML ONE (13:00)
--- NOTE | 2019-05-16 13:45 | XRay Report ---
CHEST 1 VIEW INDICATION: possible Sepsis. COMPARISON: 12/01/2018. FINDINGS: Support devices: None. Heart: Stable cardiomegaly. Lungs/Pleura: Mild edema and small left effusion/volume loss are present. Negative for localized infi ltrate. Additional findings: None. IMPRESSION: Mild congestive failure. Signer Name: Juaquin Lopez MD Signed: 05/16/2019 1:41 PM Workstation Name: [id number]
[2019-05-16 13:51] LABS: Basophils # (Auto) 0.1 K/mm3 (0.0-0.1); Basophils % (Auto) 0.5 % (0.0-1.8); Lymphocytes # (Auto) 2.5 K/mm3 (1.2-5.4); Lymphocytes % (Auto) 13.2 % (13.4-35.0); Mean Corpuscular HGB Conc 31 % (30-34); Mean Corpuscular Volume 75 fl (79-97); Monocytes # (Auto) 1.4 K/mm3 (0.0-0.8); Monocytes % (Auto) 7.4 % (0.0-7.3); Platelet Count 325 K/mm3 (140-440); Red Blood Count 5.35 M/mm3 (3.65-5.03); Red Cell Distribution Width 15.8 % (13.2-15.2)
[2019-05-16 13:53] LABS: Hemoglobin 12.3 gm/dl (10.1-14.3)
[2019-05-16 14:07] LABS: INR 1.68 (0.87-1.13)
[2019-05-16 14:16] LABS: Alanine Aminotransferase 64 units/L (7-56); Albumin 3.7 g/dL (3.9-5); BUN/Creatinine Ratio 16; Blood Urea Nitrogen 14 mg/dL (7-17); Calcium 9.7 mg/dL (8.4-10.2); Hemolysis Index 1
[2019-05-16] MEDS ORDERED: VANCOMYCIN/NS 1 GM/250 ML 1 GM/250 ML BAG IV ONE (15:13)
[2019-05-16] MEDS ORDERED: SODIUM CHLORIDE 0.9% IV ONE (15:14)
[2019-05-16] MEDS ORDERED: ONDANSETRON 4 MG/2 ML INJ IV ONE (15:18)
[2019-05-16] MEDS ORDERED: MORPHINE 4 MG/1 ML INJ IV ONE (15:18)
--- NOTE | 2019-05-16 15:20 | Emergency Department Report ---
ED General Adult HPI - General Chief complaint: Altered Mental Status Stated complaint: FEVER Time Seen by Provider: 05/16/19 14:29 Source: patient, EMS Mode of arrival: Stretcher Limitations: Physical Limitation - History of Present Illness Initial comments: The patient presents to the emergency department with a chief complaint of not feeling well for the last 4-5 days. Patient states she's had nausea and abdominal pain that has become increasingly worse. Patient states she does not have chest pain or shortness of breath. -: Sudden Location: abdomen Severity scale (0 -10): 7 Quality: aching Consistency: constant Improves with: none Worsens with: none Associated Symptoms: denies other symptoms Treatments Prior to Arrival: none - Related Data Home Medications Medication Instructions Recorded Confirmed Last Taken Atorvastatin Calcium 40 mg PO BID 11/26/18 11/26/18 11/25/18 08:00 Cholecalciferol Vit D3 [Vitamin D3 1,000 1000units PO QDAY 11/26/18 11/26/18 11/25/18 08:00 1,000 UNIT TAB] Eliquis 5 mg PO QDAY 11/26/18 11/26/18 Unknown HYDROcodone/APAP 5-325 [[place] 1 each PO Q4HR PRN 11/26/18 11/26/18 Unknown 5/325] Hydrocortisone [Cortef TAB] 10 mg PO BID 11/26/18 11/26/18 Unknown Insulin Glargine,Hum.rec.anlog 60 unit SQ QHS 11/26/18 11/26/18 Unknown [Lantus Solostar] Insulin Glargine,Hum.rec.anlog See Protocol SUB-Q QACHS 11/26/18 11/29/18 Unkno wn [Lantus Solostar] Insulin Lispro Prot/Lispro 45 1000units SUB-Q BID 11/26/18 11/29/18 Unknown [HumaLOG Mix 75/25 Vial] Lasix TAB 20 mg PO BID 11/26/18 11/26/18 Unknown Levothyroxine [Synthroid] 50 mcg PO QAM 11/26/18 11/26/18 11/24/18 08:00 Lispro Insulin [HumaLOG] See Protocol SUB-Q ACHS 11/26/18 11/29/18 11/25/18 Metoprolol [Lopressor TAB] 50 mg PO BID 11/26/18 11/26/18 Unknown Mometasone 0.1% (Nf) 0.1 units TP BID 11/26/18 11/29/18 Unknown Pantoprazole [Protonix] 40 mg PO BID 11/26/18 11/26/18 Unknown Petrolatum,White [Vaseline White 5 gm TP BID 11/26/18 11/26/18 Unknown Petroleum] Pregabalin [Lyrica] 150 mg PO BID 11/26/18 11/26/18 11/25/18 08:00 lamoTRIgine [LaMICtal] 25 mg PO BID 11/26/18 11/26/18 Unknown Allergies Allergy/AdvReac Type Severity Reaction Status Date / Time erythromycin base Allergy Itching Verified 11/26/18 06:03 [From Erythrocin] Penicillins Allergy Rash Verified 11/26/18 06:02 ED Review of Systems ROS: Stated complaint: FEVER Other details as noted in HPI Constitutional: denies: chills, fever Eyes: denies: eye pain, eye discharge, vision change ENT: denies: ear pain, throat pain Respiratory: denies: cough, shortness of breath, wheezing Cardiovascular: denies: chest pain, palpitations Endocrine: no symptoms reported Gastrointestinal: abdominal pain, nausea, vomiting. denies: diarrhea Genitourinary: denies: urgency, dysuria, discharge Musculoskeletal: denies: back pain, joint swelling, arthralgia Skin: denies: rash, lesions Neurological: denies: headache, weakness, paresthesias Psychiatric: denies: anxiety, depression Hematological/Lymphatic: denies: easy bleeding, easy bruising ED Past Medical Hx - Past Medical History Hx Hypertension: Yes Hx Heart Attack/AMI: No Hx Congestive Heart Failure: No Hx Diabetes: Yes Hx Deep Vein Thrombosis: No Hx Pulmonary Embolism: No Hx Liver Disease: No Hx Renal Disease: No Hx Arthritis: No Hx Seizures: Yes (Hx meningioma) Hx Kidney Stones: No Hx Asthma: No Hx COPD: No Hx Tuberculosis: No Hx Dementia: No Hx HIV: No Additional medical history: respiratory failure,hypothyroidism,sleep apnea,enca phalopath,sarcoidosis,fibromyalgia,anemia - Surgical History Hx Coronary Stent: No Hx Pacemaker: No Hx Internal Defibrillator: No Hx Cholecystectomy: No Hx Appendectomy: No Hx Breast Surgery: No Additional Surgical History: Daughter states patient did have a feeding tube previously - Social History Smoking Status: Never Smoker - Medications Home Medications: Home Medications Medication Instructions Recorded Confirmed Last Taken Type Atorvastatin Calcium 40 mg PO BID 11/26/18 11/26/18 11/25/18 08:00 History Cholecalciferol Vit D3 [Vitamin D3 1,000 1000units PO QDAY 11/26/18 11/26/18 11/25/18 08:00 History 1,000 UNIT TAB] Eliquis 5 mg PO QDAY 11/26/18 11/26/18 Unknown History HYDROcodone/APAP 5-325 [[place] 1 each PO Q4HR PRN 11/26/18 11/26/18 Unknown History 5/325] Hydrocortisone [Cortef TAB] 10 mg PO BID 11/26/18 11/26/18 Unknown History Insulin Glargine,Hum.rec.anlog 60 unit SQ QHS 11/26/18 11/26/18 Unknown History [Lantus Solostar] Insulin Glargine,Hum.rec.anlog See Protocol SUB-Q QACHS 11/26/18 11/29/18 Unknown History [Lantus Solostar] Insulin Lispro Prot/Lispro 45 1000units SUB-Q BID 11/26/18 11/29/18 Unknown History [HumaLOG Mix 75/25 Vial] Lasix TAB 20 mg PO BID 11/26/18 11/26/18 Unknown History Levothyroxine [Synthroid] 50 mcg PO QAM 11/26/18 11/26/18 11/24/18 08:00 History Lispro Insulin [HumaLOG] See Protocol SUB-Q ACHS 11/26/18 11/29/18 11/25/18 History Metoprolol [Lopressor TAB] 50 mg PO BID 11/26/18 11/26/18 Unknown History Mometasone 0.1% (Nf) 0.1 units TP BID 11/26/18 11/29/18 Unknown History Pantoprazole [Protonix] 40 mg PO BID 11/26/18 11/26/18 Unknown History Petrolatum,White [Vaseline White 5 gm TP BID 11/26/18 11/26/18 Unknown History Petroleum] Pregabalin [Lyrica] 150 mg PO BID 11/26/18 11/26/18 11/25/18 08:00 History lamoTRIgine [LaMICtal] 25 mg PO BID 11/26/18 11/26/18 Unknown History ED Physical Exam - General Limitations: Physical Limitation General appearance: alert, in no apparent distress - Head Head exam: Present: atraumatic, normocephalic - Eye Eye exam: Present: normal appearance, PERRL, EOMI - ENT ENT exam: Present: mucous membranes dry - Neck Neck exam: Present: normal inspection - Respiratory Respiratory exam: Present: normal lung sounds bilaterally. Absent: respiratory distress - Cardiovascular Cardiovascular Exam: Present: normal rhythm, tachycardia. Absent: systolic murmur, diastolic murmur, rubs, gallop - GI/Abdominal GI/Abdominal exam: Present: soft, tenderness (diffusely tender throughout all 4 quadrants), normal bowel sounds. Absent: distended - Extremities Exam Extremities exam: Present: normal inspection - Back Exam Back exam: Present: normal inspection - Neurological Exam Neurological exam: Present: alert, oriented X3, CN II-XII intact. Absent: motor sensory deficit - Psychiatric Psychiatric exam: Present: normal affect, normal mood - Skin Skin exam: Present: warm, dry, intact, normal color. Absent: rash ED Course Vital Signs 05/16/19 05/16/19 12:18 17:24 Temperature 99.3 F Pulse Rate 139 H 148 H Respiratory 26 H 16 Rate Blood Pressure 154/77 Blood Pressure 130/57 [Left] O2 Sat by Pulse 91 100 Oximetry ED Medical Decision Making - Lab Data Result diagrams: 05/16/19 13:33 05/16/19 13:33 Lab Results 05/16/19 05/16/19 05/16/19 Range/Units 12:40 13:33 13:33 WBC 18.7 H (4.5-11.0) K/mm3 RBC 5.35 H (3.65-5.03) M/mm3 Hgb 12.3 (10.1-14.3) gm/dl Hct 40.0 (30.3-42.9) % MCV 75 L (79-97) fl MCH 23 L (28-32) pg MCHC 31 (30-34) % RDW 15.8 H (13.2-15.2) % Plt Count 325 (140-440) K/mm3 Lymph % (Auto) 13.2 L (13.4-35.0) % Sunflower % (Auto) 7.4 H (0.0-7.3) % Eos % (Auto) 0.0 (0.0-4.3) % Baso % (Auto) 0.5 (0.0-1.8) % Lymph # 2.5 (1.2-5.4) K/mm3 Sunflower # 1.4 H (0.0-0.8) K/mm3 Eos # 0.0 (0.0-0.4) K/mm3 Baso # 0.1 (0.0-0.1) K/mm3 Seg Neutrophils % 78.9 H (40.0-70.0) % Seg Neutrophils # 14.8 H (1.8-7.7) K/mm3 PT 20.1 H (12.2-14.9) Sec. INR 1.68 H (0.87-1.13) VBG pH (7.320-7.420) Sodium (137-145) mmol/L Potassium (3.6-5.0) mmol/L Chloride (98-107) mmol/L Carbon Dioxide (22-30) mmol/L Anion Gap mmol/L BUN (7-17) mg/dL Creatinine (0.7-1.2) mg/dL Estimated GFR ml/min BUN/Creatinine Ratio % Glucose (65-100) mg/dL POC Glucose 294 H (70-105) Lactic Acid (0.7-2.0) mmol/L Calcium (8.4-10.2) mg/dL Total Bilirubin (0.1-1.2) mg/dL AST (5-40) units/L ALT (7-56) units/L Alkaline Phosphatase (35-129) units/L Total Protein (6.3-8.2) g/dL Albumin (3.9-5) g/dL Albumin/Globulin Ratio % 05/16/19 05/16/19 05/16/19 Range/Units 13:33 13:33 13:33 WBC (4.5-11.0) K/mm3 RBC (3.65-5.03) M/mm3 Hgb (10.1-14.3) gm/dl Hct (30.3-42.9) % MCV (79-97) fl MCH (28-32) pg MCHC (30-34) % RDW (13.2-15.2) % Plt Count (140-440) K/mm3 Lymph % (Auto) (13.4-35.0) % Sunflower % (Auto) (0.0-7.3) % Eos % (Auto) (0.0-4.3) % Baso % (Auto) (0.0-1.8) % Lymph # (1.2-5.4) K/mm3 Sunflower # (0.0-0.8) K/mm3 Eos # (0.0-0.4) K/mm3 Baso # (0.0-0.1) K/mm3 Seg Neutrophils % (40.0-70.0) % Seg Neutrophils # (1.8-7.7) K/mm3 PT (12.2-14.9) Sec. INR (0.87-1.13) VBG pH 7.368 (7.320-7.420) Sodium 139 (137-145) mmol/L Potassium 4.3 (3.6-5.0) mmol/L Chloride 101.2 (98-107) mmol/L Carbon Dioxide 18 L (22-30) mmol/L Anion Gap 24 mmol/L BUN 14 (7-17) mg/dL Creatinine 0.9 (0.7-1.2) mg/dL Estimated GFR > 60 ml/min BUN/Creatinine Ratio 16 % Glucose 339 H (65-100) mg/dL POC Glucose (70-105) Lactic Acid 2.60 H* (0.7-2.0) mmol/L Calcium 9.7 (8.4-10.2) mg/dL Total Bilirubin 1.30 H (0.1-1.2) mg/dL AST 73 H (5-40) units/L ALT 64 H (7-56) units/L Alkaline Phosphatase 221 H (35-129) units/L Total Protein 7.9 (6.3-8.2) g/dL Albumin 3.7 L (3.9-5) g/dL Albumin/Globulin Ratio 0.9 % 05/16/19 Range/Units 16:10 WBC (4.5-11.0) K/mm3 RBC (3.65-5.03) M/mm3 Hgb (10.1-14.3) gm/dl Hct (30.3-42.9) % MCV (79-97) fl MCH (28-32) pg MCHC (30-34) % RDW (13.2-15.2) % Plt Count (140-440) K/mm3 Lymph % (Auto) (13.4-35.0) % Sunflower % (Auto) (0.0-7.3) % Eos % (Auto) (0.0-4.3) % Baso % (Auto) (0.0-1.8) % Lymph # (1.2-5.4) K/mm3 Sunflower # (0.0-0.8) K/mm3 Eos # (0.0-0.4) K/mm3 Baso # (0.0-0.1) K/mm3 Seg Neutrophils % (40.0-70.0) % Seg Neutrophils # (1.8-7.7) K/mm3 PT (12.2-14.9) Sec. INR (0.87-1.13) VBG pH (7.320-7.420) Sodium (137-145) mmol/L Potassium (3.6-5.0) mmol/L Chloride (98-107) mmol/L Carbon Dioxide (22-30) mmol/L Anion Gap mmol/L BUN (7-17) mg/dL Creatinine (0.7-1.2) mg/dL Estimated GFR ml/min BUN/Creatinine Ratio % Glucose (65-100) mg/dL POC Glucose (70-105) Lactic Acid 2.20 H* (0.7-2.0) mmol/L Calcium (8.4-10.2) mg/dL Total Bilirubin (0.1-1.2) mg/dL AST (5-40) units/L ALT (7-56) units/L Alkaline Phosphatase (35-129) units/L Total Protein (6.3-8.2) g/dL Albumin (3.9-5) g/dL Albumin/Globulin Ratio % - Radiology Data Radiology results: report reviewed - Medical Decision Making IV fluids and antibiotics initiated Results discussed with patient Critical Care Time: Yes Critical care time in (mins) excluding proc time.: 35 Critical care attestation.: If time is entered above; I have spent that time in minutes in the direct care of this critically ill patient, excluding procedure time. ED Disposition Clinical Impression: Sepsis Disposition: DC-09 OP ADMIT IP TO THIS HOSP Is pt being admited?: Yes Does the pt Need Aspirin: No Condition: Fair
[2019-05-16] MEDS ORDERED: VANCOMYCIN 2,000 MG in SODIUM CHLORIDE 0.9% 500 ML 500 ML IV ONE (15:30)
[2019-05-16] MEDS ORDERED: AZTREONAM/NS 1 GM/50 ML 1 GM/50 ML VIAL IV ONE (16:14)
--- NOTE | 2019-05-16 16:31 | Cat Scan Report ---
CT abdomen pelvis w con INDICATION: abdominal pain. TECHNIQUE: All CT scans at this location are performed using the following dose modulation technique: Automated exposure control. CONTRAST: Omnipaque 300, 100 cc IV injection. COMPARISON: CT abdomen and pelvis 11/25/2018. CT ABDOMEN: Evaluation of the parenchymal organs demonstrates a large fatty liver. The remaining pare nchymal organs are unremarkable. Negative for abdominal mass, fluid or inflammation. The bowel is not dilated or thickened. Status pos t previous cholecystectomy. Negative for biliary dilatation. Evaluation of the lung bases demonstrates mild dependent atelectasis. CT PELVIS: Negative for mass, fluid or inflammation. IMPRESSION: 1. Large fatty liver. 2. Negative for obstruction or localized inflammation. Signer Name: Juaquin Lopez MD Signed: 05/16/2019 4:26 PM Workstation Name: [id number]
[2019-05-16] MEDS ORDERED: ACETAMINOPHEN 325 MG TAB PO PRN (17:29)
[2019-05-16] MEDS ORDERED: ONDANSETRON 4 MG/2 ML INJ IV PRN (17:29)
[2019-05-16] MEDS ORDERED: ALBUTEROL 2.5 MG/3 ML NEBU IH PRN (17:29)
[2019-05-16] MEDS ORDERED: SODIUM CHLORIDE 0.9% 1000 ML IV SOLN IV ONE (17:29)
[2019-05-16] MEDS ORDERED: SODIUM CHLORIDE 0.9% 1000 ML 1,000 ML IV SCH (17:30)
[2019-05-16] MEDS ORDERED: ACETAMINOPHEN 650 MG RECT SUPP PR ONE (20:30)
[2019-05-16 20:38] LABS: Bilirubin,Urine NEG (Negative); Blood,Urine SM (Negative); Color,Urine Yellow (Yellow); Mucus,Urine FEW /HPF; Protein,Urine <15 mg/dL mg/dL (Negative)
--- NOTE | 2019-05-16 20:41 | History and Physical Report ---
History of Present Illness Date of admission: 05/16/19 17:29 Chief complaint: Have been feeling sick. History of present illness: 53-year-old female longterm facility resident at [facility] with HTN, DM, seizure disorder, meningioma, sarcoidosis, hypothyroidism, HLD, JANI, obesity hypoventilation syndrome, peptic ulcer disease, MO presents to ED for evaluation. Patient is lethargic at the time of my exam and is unable to provide detailed history. Patient history taken from ED staff as well as EMS and [facility] staff. As per [facility] staff, the patient was found to have mental status changes today. EMS was notified and upon arrival the patient was found to be in distress and subsequently transported to [facility] for further care and evaluation. Patient seen and evaluated in the emergency department. Lab and imaging studies reviewed. Patient found to have sepsis, metabolic acidosis, and encephalopathy. Patient admitted to [facility] for medical stabilization due to high risk for cardiopulmonary decompensation. Patient initiated on sepsis protocol and treated with IV fluid as well as IV antibiotic therapy. No further history obtainable. Prior admission on 11/25/2018 reviewed. All medication listed at time of admission have been reconciled. Past History Past Medical History: diabetes, hypertension, seizures, other (See HPI) Past Surgical History: Other (PEG tube placement) Social history: single, lives with family. denies: smoking, alcohol abuse, prescription drug abuse Family history: diabetes, hypertension Medications and Allergies Allergies Allergy/AdvReac Type Severity Reaction Status Date / Time erythromycin base Allergy Itching Verified 11/26/18 06:03 [From Erythrocin] Penicillins Allergy Rash Verified 11/26/18 06:02 Home Medications Medication Instructions Recorded Confirmed Last Taken Type Atorvastatin Calcium 40 mg PO BID 11/26/18 11/26/18 11/25/18 08:00 History Cholecalciferol Vit D3 [Vitamin D3 1,000 1000units PO QDAY 11/26/18 11/26/18 11/25/18 08:00 History 1,000 UNIT TAB] Eliquis 5 mg PO QDAY 11/26/18 11/26/18 Unknown History HYDROcodone/APAP 5-325 [May 1 each PO Q4HR PRN 11/26/18 11/26/18 Unknown History 5/325] Hydrocortisone [Cortef TAB] 10 mg PO BID 11/26/18 11/26/18 Unknown History Insulin Glargine,Hum.rec.anlog 60 unit SQ QHS 11/26/18 11/26/18 Unknown History [Lantus Solostar] Insulin Glargine,Hum.rec.anlog See Protocol SUB-Q QACHS 11/26/18 11/29/18 Unknown History [Lantus Solostar] Insulin Lispro Prot/Lispro 45 1000units SUB-Q BID 11/26/18 11/29/18 Unknown Hi story [HumaLOG Mix 75/25 Vial] Lasix TAB 20 mg PO BID 11/26/18 11/26/18 Unknown History Levothyroxine [Synthroid] 50 mcg PO QAM 11/26/18 11/26/18 11/24/18 08:00 History Lispro Insulin [HumaLOG] See Protocol SUB-Q ACHS 11/26/18 11/29/18 11/25/18 History Metoprolol [Lopressor TAB] 50 mg PO BID 11/26/18 11/26/18 Unknown History Mometasone 0.1% (Nf) 0.1 units TP BID 11/26/18 11/29/18 Unknown History Pantoprazole [Protonix] 40 mg PO BID 11/26/18 11/26/18 Unknown History Petrolatum,White [Vaseline White 5 gm TP BID 11/26/18 11/26/18 Unknown History Petroleum] Pregabalin [Lyrica] 150 mg PO BID 11/26/18 11/26/18 11/25/18 08:00 History lamoTRIgine [LaMICtal] 25 mg PO BID 11/26/18 11/26/18 Unknown History Active Meds: Active Medications Acetaminophen (Tylenol) 650 mg PO Q4H PRN PRN Reason: Pain MILD(1-3)/Fever >100.5/TANG Acetaminophen/Hydrocodone Bitart (May 5/325) 1 each PO Q4HR PRN PRN Reason: PAIN Albuterol (Proventil) 2.5 mg IH Q4HRT PRN PRN Reason: Shortness Of Breath Apixaban (Eliquis) 5 mg PO QDAY [facility] Atorvastatin Calcium (Lipitor) 40 mg PO BID [facility] Furosemide (Lasix) 20 mg PO BID [facility] Hydrocortisone Acetate (Cortef) 10 mg PO BID [facility] Hydrophilic Ointment (Vaseline) 0 applic TP BID [facility] Levofloxacin/Dextrose (Levaquin 750mg/150ml) 750 mg in 150 mls @ 100 mls/hr IV Q24H [facility]; Protocol Last Admin: 05/16/19 18:11 Dose: 100 mls/hr Documented by: Sodium Chloride (Nacl 0.9% 1000 Ml) 1,000 mls @ 100 mls/hr IV DIRECT [facility]IO[facility] Vancomycin HCl 1,500 mg/ (Sodium Chloride) 530 mls @ 265 mls/hr IV Q12H [facility] Lamotrigine (Lamictal) 25 mg PO BID [facility] Levothyroxine Sodium (Synthroid) 50 mcg PO 0600 [facility] Metoprolol Tartrate (Metoprolol) 50 mg PO BID [facility] Miscellaneous Medication (Mometasone 0.1% (Nf)) 0.1 units TP BID [facility] Ondansetron HCl (Zofran) 4 mg IV Q8H PRN PRN Reason: Nausea And Vomiting Pantoprazole Sodium (Protonix) 40 mg PO BID [facility] Pregabalin (Pregabalin) 50 mg PO BID [facility] Sodium Chloride (Sodium Chloride Flush Syringe 10 Ml) 10 ml IV BID [facility] Sodium Chloride (Sodium Chloride Flush Syringe 10 Ml) 10 ml IV PRN PRN PRN Reason: LINE FLUSH Review of Systems ROS unobtainable: due to mental status Exam - Constitutional Vitals: Temp Pulse Resp BP Pulse Ox 105.7 F H 145 H 37 H 112/42 97 05/16/19 20:00 05/16/19 20:25 05/16/19 20:25 05/16/19 20:25 05/16/19 20:25 General appearance: Present: mild distress, obese - EENT Eyes: Present: miosis ENT: hearing decreased - Neck Neck: Present: supple - Respiratory Respiratory effort: labored Respiratory: bilateral: diminished - Cardiovascular Rhythm: other (Tachycardia) Heart Sounds: Present: S1 & S2. Absent: rub, click - Extremities Extremity abnormal: edema Peripheral Pulses: abnormal (Capillary refill greater than 3.5 seconds) - Abdominal General gastrointestinal: Present: soft, non-tender, non-distended, normal bowel sounds Female genitourinary: Present: normal - Integumentary Integumentary: Present: clear, dry, clammy, pale, decreased turgor - Musculoskeletal Musculoskeletal: generalized weakness - Psychiatric Psychiatric: no appropriate mood/affect, no intact judgment & insight, no memory intact - Neurologic Neurologic: CNII-XII intact, no focal deficits, moves all extremities, no gait normal Results - Labs CBC & Chem 7: 05/16/19 13:33 05/16/19 13:33 Labs: Abnormal lab results 05/16/19 05/16/19 05/16/19 Range/Units 12:40 13:33 13:33 WBC 18.7 H (4.5-11.0) K/mm3 RBC 5.35 H (3.65-5.03) M/mm3 MCV 75 L (79-97) fl MCH 23 L (28-32) pg RDW 15.8 H (13.2-15.2) % Lymph % (Auto) 13.2 L (13.4-35.0) % [place] % (Auto) 7.4 H (0.0-7.3) % Carver # 1.4 H (0.0-0.8) K/mm3 Seg Neutrophils % 78.9 H (40.0-70.0) % Seg Neutrophils # 14.8 H (1.8-7.7) K/mm3 PT 20.1 H (12.2-14.9) Sec. INR 1.68 H (0.87-1.13) Carbon Dioxide (22-30) mmol/L Glucose (65-100) mg/dL POC Glucose 294 H (70-105) Lactic Acid (0.7-2.0) mmol/L Total Bilirubin (0.1-1.2) mg/dL AST (5-40) units/L ALT (7-56) units/L Alkaline Phosphatase (35-129) units/L Albumin (3.9-5) g/dL 05/16/19 05/16/19 05/16/19 Range/Units 13:33 13:33 16:10 WBC (4.5-11.0) K/mm3 RBC (3.65-5.03) M/mm3 MCV (79-97) fl MCH (28-32) pg RDW (13.2-15.2) % Lymph % (Auto) (13.4-35.0) % Carver % (Auto) (0.0-7.3) % Carver # (0.0-0.8) K/mm3 Seg Neutrophils % (40.0-70.0) % Seg Neutrophils # (1.8-7.7) K/mm3 PT (12.2-14.9) Sec. INR (0.87-1.13) Carbon Dioxide 18 L (22-30) mmol/L Glucose 339 H (65-100) mg/dL POC Glucose (70-105) Lactic Acid 2.60 H* 2.20 H* (0.7-2.0) mmol/L Total Bilirubin 1.30 H (0.1-1.2) mg/dL AST 73 H (5-40) units/L ALT 64 H (7-56) units/L Alkaline Phosphatase 221 H (35-129) units/L Albumin 3.7 L (3.9-5) g/dL 05/16/19 Range/Units 17:16 WBC (4.5-11.0) K/mm3 RBC (3.65-5.03) M/mm3 MCV (79-97) fl MCH (28-32) pg RDW (13.2-15.2) % Lymph % (Auto) (13.4-35.0) % Carver % (Auto) (0.0-7.3) % Carver # (0.0-0.8) K/mm3 Seg Neutrophils % (40.0-70.0) % Seg Neutrophils # (1.8-7.7) K/mm3 PT (12.2-14.9) Sec. INR (0.87-1.13) Carbon Dioxide (22-30) mmol/L Glucose (65-100) mg/dL POC Glucose (70-105) Lactic Acid 2.40 H* (0.7-2.0) mmol/L Total Bilirubin (0.1-1.2) mg/dL AST (5-40) units/L ALT (7-56) units/L Alkaline Phosphatase (35-129) units/L Albumin (3.9-5) g/dL Assessment and Plan - Patient Problems (1) Sepsis Current Visit: Yes Status: Acute Plan to address problem: Sepsis protocol: IV antibiotic therapy, CBC, CMP, urinalysis, chest x-ray, serial lactic acid level, monitor urine output every shift, strict I's/O, maintain mean arterial pressure above 65 and systolic blood pressure above 90, IV fluid resuscitation therapy, (2) Obesity hypoventilation syndrome Current Visit: Yes Status: Acute Plan to address problem: Supplemental oxygen, nebulizer therapy, pulse oximetry, noninvasive positive pressure ventilation as clinically indicated, chest x-ray. (3) Acidosis Current Visit: Yes Status: Acute Plan to address problem: IV fluids resuscitation therapy, serial lactic acid level, repeat BMP in a.m. (4) Diabetes Current Visit: Yes Status: Acute (5) Hypothyroid Current Visit: Yes Status: Acute (6) Hyperlipidemia Current Visit: Yes Status: Acute Qualifiers: Hyperlipidemia type: mixed hyperlipidemia Qualified Code(s): E78.2 - Mixed hyperlipidemia Plan to address problem: Risk factor reduction therapy, lipid panel, statin therapy as clinically indicated (7) DVT prophylaxis Current Visit: Yes Status: Acute Plan to address problem: SCD to bilateral lower extremities while in bed, prophylactic heparin.
[2019-05-16] MEDS ORDERED: APIXABAN 5 MG TAB PO SCH (21:07)
[2019-05-16] MEDS ORDERED: lamoTRIgine 25 MG TAB ONE (21:46)
[2019-05-16] MEDS ORDERED: FUROSEMIDE 20 MG TAB ONE (21:46)
[2019-05-16] MEDS ORDERED: PANTOPRAZOLE 40 MG TAB PO ONE (21:46)
[2019-05-16] MEDS ORDERED: METOPROLOL TARTRATE 50 MG TAB ONE (21:47)
[2019-05-16] MEDS ORDERED: MOMETASONE TP SCH (22:00)
[2019-05-16] MEDS ORDERED: PREGABALIN 75 MG CAP PO SCH (22:00)
[2019-05-16] MEDS ORDERED: NON-FORMULARY EACH (Lasix Tab 20 MG) PO SCH (22:00)
[2019-05-16] MEDS ORDERED: ATORVASTATIN CALCIUM 40 MG PO SCH (22:00)
[2019-05-16] MEDS ORDERED: NON-FORMULARY EACH (Pregabalin [Lyrica] 150 MG) PO SCH (22:00)
[2019-05-16] MEDS ORDERED: HEPARIN 5,000 UNIT/1 ML VIAL SUB-Q SCH (22:00)
[2019-05-16] MEDS ORDERED: PETROLATUM,WHITE 30 GM OINT TP SCH (22:00)
[2019-05-17] MEDS: lamoTRIgine 25 MG TAB PO SCH ×2 (00:35→10:41)
[2019-05-17] MEDS: HYDROCORTISONE 10 MG TAB PO SCH ×2 (00:35→10:41)
[2019-05-17] MEDS: PANTOPRAZOLE 40 MG TAB PO SCH ×2 (00:35→10:42)
[2019-05-17] MEDS: PETROLATUM,WHITE 30 GM OINT TP SCH ×2 (00:35→10:26)
[2019-05-17] MEDS: FUROSEMIDE 20 MG TAB PO SCH ×2 (00:35→10:41)
[2019-05-17] MEDS: METOPROLOL TARTRATE 50 MG TAB PO SCH ×2 (01:16→10:42)
[2019-05-17] MEDS ORDERED: HYDROcodone/ACETAMINOPHEN 5-325 MG TAB ONE ×2 (02:11→18:37)
[2019-05-17] MEDS: HYDROcodone/ACETAMINOPHEN 5-325 MG TAB PO PRN ×2 (02:30→18:43)
[2019-05-17] MEDS: VANCOMYCIN 1,500 MG in SODIUM CHLORIDE 0.9% 500 ML 500 ML IV SCH ×2 (04:34→17:25)
[2019-05-17 05:35] LABS: Hematocrit 35.8 % (30.3-42.9); Mean Corpuscular HGB Conc 31 % (30-34); Mean Corpuscular Volume 75 fl (79-97); Platelet Count 251 K/mm3 (140-440); Red Blood Count 4.78 M/mm3 (3.65-5.03); Red Cell Distribution Width 15.7 % (13.2-15.2)
[2019-05-17 05:47] LABS: Alanine Aminotransferase 53 units/L (7-56); Albumin 3.5 g/dL (3.9-5); BUN/Creatinine Ratio 18; Blood Urea Nitrogen 11 mg/dL (7-17); Calcium 8.8 mg/dL (8.4-10.2); Hemolysis Index 0
[2019-05-17] MEDS ORDERED: LEVOTHYROXINE 50 MCG TAB PO SCH (06:00)
[2019-05-17 08:22] LABS: Anisocytosis 1+; Band Neutrophils # (Manual) 0.6 K/mm3; Basophils % (Manual) 0 % (0.0-1.8); Eosinophils % (Manual) 0 % (0.0-4.3); Hypochromasia 1+; Total Cells Counted 100
[2019-05-17 08:23] LABS: Large Platelets Few; Ovalocytes Few
[2019-05-17] MEDS ORDERED: INSULIN LISPRO PROT SUB-Q SCH (10:00)
[2019-05-17] MEDS ORDERED: CHOLECALCIFEROL (VIT D3) 1000 UNIT TAB PO SCH (10:00)
[2019-05-17] MEDS ORDERED: NON-FORMULARY EACH (Eliquis 5 MG) PO SCH (10:00)
[2019-05-17] MEDS ORDERED: LISPRO SUB-Q SCH (10:00)
[2019-05-17] MEDS ORDERED: APIXABAN 5 MG TAB PO SCH (10:00)
[2019-05-17] MEDS: PREGABALIN 25 MG CAP PO SCH ×2 (10:30→13:00)
[2019-05-17] MEDS ORDERED: PANTOPRAZOLE 40 MG TAB PO ONE (10:33)
[2019-05-17] MEDS ORDERED: METOPROLOL TARTRATE 50 MG TAB ONE (10:33)
[2019-05-17] MEDS ORDERED: lamoTRIgine 25 MG TAB ONE (10:34)
[2019-05-17] MEDS ORDERED: APIXABAN 5 MG TAB ONE (10:35)
[2019-05-17] MEDS ORDERED: FUROSEMIDE 20 MG TAB ONE (10:35)
[2019-05-17] MEDS: APIXABAN 5 MG TAB PO SCH (10:41)
--- NOTE | 2019-05-17 14:11 | Progress Note ---
Assessment and Plan /Sepsis, suspected cont Sepsis protocol: IV antibiotic therapy, serial lactic acid level, monitor urine output every shift, strict I's/O, maintain mean arterial pressure above 65 and systolic blood pressure above 90, IV fluid resuscitation therapy,follow cx /Obesity hypoventilation syndrome Supplemental oxygen, nebulizer therapy, pulse oximetry, noninvasive positive pressure ventilation as clinically indicated, chest x-ray. /Acidosis, likely metabolic IV fluids resuscitation therapy, serial lactic acid level, repeat BMP in a.m. /Hyperlipidemia Risk factor reduction therapy, lipid panel, statin therapy as clinically indicated /Encephalopathy: much alert and oriented today likely metabolic, cont supportive care /Hypothyroidism: Synthroid therapy, continue medical management /Diabetes mellitus: Sliding scale insulin therapy, consistent carbohydrate diet, Accu-Chek, hypoglycemia protocol. /DVT prophylaxis SCD to bilateral lower extremities while in bed, prophylactic heparin. Subjective Date of service: 05/17/19 Interval history: Patient seen and examined BP at high 90s, patient appears alert family at bedside, updated Objective - Constitutional Vitals: Vital Signs - 12hr 05/17/19 05/17/19 05/17/19 02:30 03:00 03:30 Pulse Rate 103 H 104 H 106 H Respiratory 29 H 25 H 30 H Rate Blood Pressure 100/39 115/29 103/40 Blood Pressure [Left] O2 Sat by Pulse 92 92 94 Oximetry 05/17/19 05/17/19 05/17/19 04:00 04:30 05:30 Pulse Rate 109 H 110 H 109 H Respiratory 29 H 31 H 32 H Rate Blood Pressure 100/35 100/35 90/34 Blood Pressure [Left] O2 Sat by Pulse 96 95 93 Oximetry 05/17/19 05/17/19 05/17/19 06:30 07:00 07:23 Pulse Rate 108 H 108 H 108 H Respiratory 28 H 27 H 27 H Rate Blood Pressure 82/41 98/35 Blood Pressure 98/35 [Left] O2 Sat by Pulse 93 94 94 Oximetry 05/17/19 05/17/19 05/17/19 07:30 08:00 09:00 Pulse Rate 107 H 110 H 114 H Respiratory 25 H 29 H 28 H Rate Blood Pressure 98/35 90/46 97/40 Blood Pressure [Left] O2 Sat by Pulse 94 94 93 Oximetry 05/17/19 10:00 Pulse Rate 115 H Respiratory 27 H Rate Blood Pressure 105/42 Blood Pressure [Left] O2 Sat by Pulse 93 Oximetry General appearance: Present: no acute distress, obese - EENT Eyes: PERRL, EOM intact ENT: hearing intact, clear oral mucosa Ears: bilateral: normal - Neck Neck: supple, normal ROM - Respiratory Respiratory effort: normal Respiratory: bilateral: rales - Cardiovascular Rhythm: regular Heart Sounds: Present: S1 & S2. Absent: gallop, rub Extremities: pulses intact, No edema, normal color, Full ROM - Gastrointestinal General gastrointestinal: Present: soft, non-tender, non-distended, normal bowel sounds - Integumentary Integumentary: clear, warm, dry - Musculoskeletal Musculoskeletal: generalized weakness - Neurologic Neurologic: moves all extremities - Psychiatric Psychiatric: memory intact, appropriate mood/affect, intact judgment & insight - Labs CBC & Chem 7: 05/19/19 07:22 05/19/19 07:22 Labs: Abnormal lab results 05/16/19 05/16/19 05/16/19 Range/Units 12:40 13:33 13:33 WBC (4.5-11.0) K/mm3 MCV (79-97) fl MCH (28-32) pg RDW (13.2-15.2) % Seg Neuts % (Manual) (40.0-70.0) % Lymphocytes % (Manual) (13.4-35.0) % Seg Neutrophils # Man (1.8-7.7) K/mm3 Carbon Dioxide 18 L (22-30) mmol/L Creatinine (0.7-1.2) mg/dL Glucose 339 H (65-100) mg/dL POC Glucose 294 H (70-105) Lactic Acid 2.60 H* (0.7-2.0) mmol/L Total Bilirubin 1.30 H (0.1-1.2) mg/dL AST 73 H (5-40) units/L ALT 64 H (7-56) units/L Alkaline Phosphatase 221 H (35-129) units/L Albumin 3.7 L (3.9-5) g/dL Ur Specific [place] (1.003-1.030) 05/16/19 05/16/19 05/16/19 Range/Units 16:10 17:16 20:31 WBC (4.5-11.0) K/mm3 MCV (79-97) fl MCH (28-32) pg RDW (13.2-15.2) % Seg Neuts % (Manual) (40.0-70.0) % Lymphocytes % (Manual) (13.4-35.0) % Seg Neutrophils # Man (1.8-7.7) K/mm3 Carbon Dioxide (22-30) mmol/L Creatinine (0.7-1.2) mg/dL Glucose (65-100) mg/dL POC Glucose (70-105) Lactic Acid 2.20 H* 2.40 H* (0.7-2.0) mmol/L Total Bilirubin (0.1-1.2) mg/dL AST (5-40) units/L ALT (7-56) units/L Alkaline Phosphatase (35-129) units/L Albumin (3.9-5) g/dL Ur Specific [place] 1.035 H (1.003-1.030) 05/16/19 05/17/19 05/17/19 Range/Units 20:37 05:01 05:01 WBC 15.5 H (4.5-11.0) K/mm3 MCV 75 L (79-97) fl MCH 23 L (28-32) pg RDW 15.7 H (13.2-15.2) % Seg Neuts % (Manual) 81.0 H (40.0-70.0) % Lymphocytes % (Manual) 9.0 L (13.4-35.0) % Seg Neutrophils # Man 12.6 H (1.8-7.7) K/mm3 Carbon Dioxide 18 L (22-30) mmol/L Creatinine 0.6 L (0.7-1.2) mg/dL Glucose 426 H (65-100) mg/dL POC Glucose (70-105) Lactic Acid 2.80 H* (0.7-2.0) mmol/L Total Bilirubin (0.1-1.2) mg/dL AST 52 H (5-40) units/L ALT (7-56) units/L Alkaline Phosphatase 184 H (35-129) units/L Albumin 3.5 L (3.9-5) g/dL Ur Specific [place] (1.003-1.030)
[2019-05-17] MEDS ORDERED: PREGABALIN 25 MG CAP ONE (15:28)
[2019-05-17] MEDS: INSULIN REGULAR, HUMAN 100 UNITS/1 ML SUB-Q SCH ×2 (15:36→17:31)
[2019-05-17] MEDS ORDERED: INSULIN REGULAR, HUMAN 100 UNITS/1 ML ONE (17:29)
[2019-05-17] MEDS: INSULIN NPH/REGULAR 70/30 INJ SUB-Q SCH (18:43)
[2019-05-18] MEDS: PANTOPRAZOLE 40 MG TAB PO SCH ×3 (01:00→22:34)
[2019-05-18] MEDS: PETROLATUM,WHITE 30 GM OINT TP SCH ×3 (01:00→22:36)
[2019-05-18] MEDS: FUROSEMIDE 20 MG TAB PO SCH ×3 (01:00→22:40)
[2019-05-18] MEDS: HYDROCORTISONE 10 MG TAB PO SCH ×3 (01:00→22:35)
[2019-05-18] MEDS: lamoTRIgine 25 MG TAB PO SCH ×3 (01:00→22:35)
[2019-05-18] MEDS: PREGABALIN 25 MG CAP PO SCH ×3 (01:00→22:34)
[2019-05-18] MEDS: APIXABAN 5 MG TAB PO SCH ×3 (01:00→22:34)
[2019-05-18] MEDS ORDERED: PANTOPRAZOLE 40 MG TAB PO ONE ×2 (01:46→10:17)
[2019-05-18] MEDS ORDERED: APIXABAN 5 MG TAB ONE ×2 (01:46→10:16)
[2019-05-18] MEDS ORDERED: FUROSEMIDE 20 MG TAB ONE ×2 (01:46→10:16)
[2019-05-18] MEDS ORDERED: PREGABALIN 25 MG CAP ONE ×2 (01:47→11:33)
[2019-05-18] MEDS: INSULIN REGULAR, HUMAN 100 UNITS/1 ML SUB-Q SCH ×5 (04:29→22:37)
[2019-05-18] MEDS: METOPROLOL TARTRATE 50 MG TAB PO SCH ×3 (04:32→22:35)
[2019-05-18] MEDS: VANCOMYCIN 1,500 MG in SODIUM CHLORIDE 0.9% 500 ML 500 ML IV SCH (04:34)
[2019-05-18] MEDS ORDERED: HYDROcodone/ACETAMINOPHEN 5-325 MG TAB ONE (05:03)
[2019-05-18] MEDS: HYDROcodone/ACETAMINOPHEN 5-325 MG TAB PO PRN (05:10)
[2019-05-18] MEDS ORDERED: INSULIN REGULAR, HUMAN 100 UNITS/1 ML ONE ×3 (08:53→17:26)
[2019-05-18] MEDS: INSULIN NPH/REGULAR 70/30 INJ SUB-Q SCH (09:31)
[2019-05-18] MEDS ORDERED: METOPROLOL TARTRATE 50 MG TAB ONE (10:18)
--- NOTE | 2019-05-18 17:14 | Progress Note ---
Assessment and Plan /Sepsis, suspected cont Sepsis protocol: IV antibiotic therapy, serial lactic acid level, monitor urine output every shift, strict I's/O, maintain mean arterial pressure above 65 and systolic blood pressure above 90, IV fluid resuscitation therapy,follow pending cx /Obesity hypoventilation syndrome Supplemental oxygen, nebulizer therapy, pulse oximetry, noninvasive positive pressure ventilation as clinically indicated, chest x-ray. /Acidosis, likely metabolic IV fluids resuscitation therapy, serial lactic acid level, repeat BMP in a.m. /Hyperlipidemia Risk factor reduction therapy, lipid panel, statin therapy as clinically i ndicated /Encephalopathy: much alert and oriented today likely metabolic, cont supportive care /Hypothyroidism: Synthroid therapy, continue medical management /Diabetes mellitus: Sliding scale insulin therapy, consistent carbohydrate diet, Accu-Chek, hypoglycemia protocol. /DVT prophylaxis SCD to bilateral lower extremities while in bed, prophylactic heparin. Subjective Date of service: 05/18/19 Interval history: Patient seen and examined BP much, patient appears alert and oriented family at bedside, updated Objective - Constitutional Vitals: Vital Signs - 12hr 05/18/19 05/18/19 05/18/19 06:00 07:00 08:00 Temperature Pulse Rate 115 H 116 H 112 H Pulse Rate [ From Monitor] Respiratory 18 27 H Rate Blood Pressure 114/44 105/55 114/44 Blood Pressure [Right] O2 Sat by Pulse 94 65 L 92 Oximetry 05/18/19 05/18/19 05/18/19 09:18 09:40 09:53 Temperature 98.6 F Pulse Rate 114 H Pulse Rate [ 114 H From Monitor] Respiratory 24 24 Rate Blood Pressure 114/44 Blood Pressure 124/73 [Right] O2 Sat by Pulse 93 96 96 Oximetry 05/18/19 05/18/19 05/18/19 10:00 10:22 11:00 Temperature Pulse Rate 114 H 114 H 109 H Pulse Rate [ From Monitor] Respiratory 29 H 23 Rate Blood Pressure 109/47 124/73 112/46 Blood Pressure [Right] O2 Sat by Pulse 94 97 Oximetry 05/18/19 05/18/19 05/18/19 12:00 13:00 13:37 Temperature 98.4 F Pulse Rate 97 H Pulse Rate [ From Monitor] Respiratory 30 H Rate Blood Pressure 105/31 99/35 Blood Pressure [Right] O2 Sat by Pulse 94 96 Oximetry 05/18/19 05/18/1920 14:00 14:02 15:00 Temperature Pulse Rate 99 H 100 H Pulse Rate [ 101 H From Monitor] Respiratory 27 H 20 30 H Rate Blood Pressure 105/31 104/53 Blood Pressure [Right] O2 Sat by Pulse 95 96 96 Oximetry 05/18/19 16:00 Temperature Pulse Rate 102 H Pulse Rate [ From Monitor] Respiratory 20 Rate Blood Pressure 100/49 Blood Pressure [Right] O2 Sat by Pulse 95 Oximetry General appearance: Present: no acute distress, obese - EENT Eyes: PERRL, EOM intact ENT: hearing intact, clear oral mucosa Ears: bilateral: normal - Neck Neck: supple, normal ROM - Respiratory Respiratory effort: normal Respiratory: bilateral: rhonchi - Cardiovascular Rhythm: regular Heart Sounds: Present: S1 & S2. Absent: gallop, rub Extremities: pulses intact, No edema, normal color, Full ROM - Gastrointestinal General gastrointestinal: Present: soft, non-tender, non-distended, normal bowel sounds - Integumentary Integumentary: clear, warm, dry - Musculoskeletal Musculoskeletal: 1, strength equal bilaterally - Neurologic Neurologic: moves all extremities - Psychiatric Psychiatric: memory intact, appropriate mood/affect, intact judgment & insight - Labs CBC & Chem 7: 05/19/19 07:22 05/19/19 07:22 Labs: Abnormal lab results 05/18/19 05/18/19 05/18/19 Range/Units 01:39 08:59 12:29 POC Glucose 199 H 199 H 162 H (70-105) 05/18/19 Range/Units 17:14 POC Glucose 253 H (70-105)
[2019-05-19 08:12] LABS: Mean Corpuscular HGB Conc 30 % (30-34); Mean Corpuscular Volume 74 fl (79-97); Platelet Count 280 K/mm3 (140-440); Red Blood Count 4.59 M/mm3 (3.65-5.03); Red Cell Distribution Width 15.6 % (13.2-15.2)
[2019-05-19 08:13] LABS: Hemoglobin 10.2 gm/dl (10.1-14.3)
[2019-05-19 08:30] LABS: BUN/Creatinine Ratio 16; Blood Urea Nitrogen 8 mg/dL (7-17); Calcium 9.1 mg/dL (8.4-10.2); Hemolysis Index 31
[2019-05-19 08:56] LABS: Basophils % (Manual) 0 % (0.0-1.8); Eosinophils % (Manual) 0 % (0.0-4.3); Total Cells Counted 100
[2019-05-19 08:57] LABS: Anisocytosis Few; Hypochromasia Few; Large Platelets Few; Platelet Estimate Consistent w Auto
[2019-05-19] MEDS: INSULIN NPH/REGULAR 70/30 INJ SUB-Q SCH ×3 (09:40→17:04)
[2019-05-19] MEDS: METOPROLOL TARTRATE 50 MG TAB PO SCH ×2 (10:10→22:00)
[2019-05-19] MEDS: lamoTRIgine 25 MG TAB PO SCH ×2 (10:10→22:21)
[2019-05-19] MEDS: PREGABALIN 25 MG CAP PO SCH ×2 (10:10→22:21)
[2019-05-19] MEDS: PANTOPRAZOLE 40 MG TAB PO SCH ×2 (10:10→22:21)
[2019-05-19] MEDS: HYDROCORTISONE 10 MG TAB PO SCH ×2 (10:10→22:21)
[2019-05-19] MEDS: APIXABAN 5 MG TAB PO SCH ×2 (10:10→22:21)
[2019-05-19] MEDS: INSULIN REGULAR, HUMAN 100 UNITS/1 ML SUB-Q SCH ×4 (10:11→22:00)
[2019-05-19] MEDS: FUROSEMIDE 20 MG TAB PO SCH ×2 (10:11→22:22)
--- NOTE | 2019-05-19 15:55 | Progress Note ---
Assessment and Plan /Sepsis, suspected cont IV antibiotic therapy, blood cx showing Gm +ve cocci - will follow final result /Obesity hypoventilation syndrome cont Supplemental oxygen, nebulizer therapy, noninvasive positive pressure ventilation if needed /Acidosis, likely metabolic IV fluids resuscitation therapy, serial lactic acid level, repeat BMP in a.m. /Hyperlipidemia Risk factor reduction therapy, statin therapy /Encephalopathy: much alert and oriented today likely metabolic, cont supportive care /Hypothyroidism: Synthroid therapy, /Diabetes mellitus: Sliding scale insulin therapy, consistent carbohydrate diet, Accu-Chek, hypoglycemia protocol. /DVT prophylaxis SCD to bilateral lower extremities while in bed, prophylactic heparin. Disposition: wait for final blood cx, possible d/c to SNF Subjective Date of service: 05/19/19 Interval history: Patient seen and examined BP much, patient appears alert and oriented family at bedside, updated Objective - Exam Narrative Exam: General appearance: Present: no acute distress, obese - EENT Eyes: PERRL, EOM intact ENT: hearing intact, clear oral mucosa Ears: bilateral: normal - Neck Neck: supple, normal ROM - Respiratory Respiratory effort: normal Respiratory: bilateral: rhonchi - Cardiovascular Rhythm: regular Heart Sounds: Present: S1 & S2. Absent: gallop, rub Extremities: pulses intact, No edema, normal color, Full ROM - Gastrointestinal General gastrointestinal: Present: soft, non-tender, non-distended, normal bowel sounds - Integumentary Integumentary: clear, warm, dry - Musculoskeletal Musculoskeletal: 1, strength equal bilaterally, right LE weakness - POA, appears chronic - Neurologic Neurologic: moves all extremities - Psychiatric Psychiatric: memory intact, appropriate mood/affect, intact judgment & insight - Constitutional Vitals: Vital Signs - 12hr 05/19/19 05/19/19 05/19/19 04:23 07:37 09:36 Temperature 99.2 F 98.0 F Pulse Rate 96 H 95 H 88 Respiratory 19 18 Rate Blood Pressure 107/47 128/77 O2 Sat by Pulse 91 97 Oximetry - Labs CBC & Chem 7: 05/19/19 07:22 05/19/19 07:22 Labs: Abnormal lab results 05/18/19 05/18/19 05/19/19 Range/Units 17:14 21:05 07:22 WBC (4.5-11.0) K/mm3 MCV (79-97) fl MCH (28-32) pg RDW (13.2-15.2) % Seg Neuts % (Manual) (40.0-70.0) % Lymphocytes % (Manual) (13.4-35.0) % Seg Neutrophils # Man (1.8-7.7) K/mm3 Monocytes # (Manual) (0.0-0.8) K/mm3 Carbon Dioxide 18 L (22-30) mmol/L Creatinine 0.5 L (0.7-1.2) mg/dL Glucose 203 H (65-100) mg/dL POC Glucose 253 H 180 H (70-105) 05/19/19 05/19/19 05/19/19 Range/Units 07:22 07:50 12:12 WBC 19.5 H (4.5-11.0) K/mm3 MCV 74 L (79-97) fl MCH 22 L (28-32) pg RDW 15.6 H (13.2-15.2) % Seg Neuts % (Manual) 83.0 H (40.0-70.0) % Lymphocytes % (Manual) 11.0 L (13.4-35.0) % Seg Neutrophils # Man 16.2 H (1.8-7.7) K/mm3 Monocytes # (Manual) 1.0 H (0.0-0.8) K/mm3 Carbon Dioxide (22-30) mmol/L Creatinine (0.7-1.2) mg/dL Glucose (65-100) mg/dL POC Glucose 168 H 196 H (70-105)
[2019-05-19] MEDS: HYDROcodone/ACETAMINOPHEN 5-325 MG TAB PO PRN (16:56)
[2019-05-20] MEDS: INSULIN NPH/REGULAR 70/30 INJ SUB-Q SCH ×2 (09:06→18:13)
[2019-05-20] MEDS: INSULIN REGULAR, HUMAN 100 UNITS/1 ML SUB-Q SCH ×3 (09:06→18:12)
[2019-05-20] MEDS: lamoTRIgine 25 MG TAB PO SCH (09:12)
[2019-05-20] MEDS: PANTOPRAZOLE 40 MG TAB PO SCH (09:13)
[2019-05-20] MEDS: PREGABALIN 25 MG CAP PO SCH (09:13)
[2019-05-20] MEDS: HYDROCORTISONE 10 MG TAB PO SCH (09:13)
[2019-05-20] MEDS: APIXABAN 5 MG TAB PO SCH (09:13)
[2019-05-20] MEDS: FUROSEMIDE 20 MG TAB PO SCH (09:14)
[2019-05-20] MEDS: METOPROLOL TARTRATE 50 MG TAB PO SCH (09:14)
[2019-05-20] MEDS: HYDROcodone/ACETAMINOPHEN 5-325 MG TAB PO PRN (12:59)
[2019-05-20] MEDS: PETROLATUM,WHITE 30 GM OINT TP SCH (15:00)
[2019-05-20 16:11] VITALS: BP 117/53
--- NOTE | 2019-05-20 16:16 | Discharge Summary ---
Providers - Providers Date of Admission: 05/16/19 17:29 Date of discharge: 05/20/19 Attending physician: TEODORA SANABRIA 05/19/19 16:30 Physical Therapy Evaluation and Treat [CONS] Routine Comment: Reason For Exam: placement Primary care physician: MAILROOM CLERK Hospitalization Condition: Fair Hospital course: Discharge diagnosis and Mx: /Sepsis with bacteremia, suspected on admission plcaed on cont IV antibiotic therapy, blood cx showed contamination with staph coag stooped abx on discharge /Obesity hypoventilation syndrome cont Supplemental oxygen, nebulizer therapy, noninvasive positive pressure ventilation if needed /Acidosis, likely metabolic IV fluids resuscitation therapy, serial lactic acid level, repeat BMP in a.m. /Hyperlipidemia Risk factor reduction therapy, statin therapy /Encephalopathy: much alert and oriented today likely metabolic, cont supportive care /Hypothyroidism: Synthroid therapy, /Diabetes mellitus: Sliding scale insulin therapy, consistent carbohydrate diet, Accu-Chek, hypoglycemia protocol. /DVT prophylaxis SCD to bilateral lower extremities while in bed, prophylactic heparin. Disposition: d/c to SNF Disposition: DC/[place]-03 SNF W [facility] Time spent for discharge: 34 minutes Core Measure Documentation - Palliative Care Palliative Care/ Comfort Measures: Not Applicable - Core Measures Any of the following diagnoses?: history only Exam - Physical Exam Narrative exam: General appearance: Present: no acute distress, obese - EENT Eyes: PERRL, EOM intact ENT: hearing intact, clear oral mucosa Ears: bilateral: normal - Neck Neck: supple, normal ROM - Respiratory Respiratory effort: normal Respiratory: bilateral: rhonchi - Cardiovascular Rhythm: regular Heart Sounds: Present: S1 & S2. Absent: gallop, rub Extremities: pulses intact, No edema, normal color, Full ROM - Gastrointestinal General gastrointestinal: Present: soft, non-tender, non-distended, normal bowel sounds - Integumentary Integumentary: clear, warm, dry - Musculoskeletal Musculoskeletal: 1, strength equal bilaterally, right LE weakness - POA, appears chronic - Neurologic Neurologic: moves all extremities - Psychiatric Psychiatric: memory intact, appropriate mood/affect, intact judgment & insight - Constitutional Vitals: Temp Pulse Resp BP Pulse Ox 98.5 F 100 H 20 132/58 98 05/20/19 07:42 05/20/19 09:14 05/20/19 07:42 05/20/19 09:14 05/20/19 10:00 Plan Activity: up only with assistance, fall precautions Weight Bearing Status: Weight Bear as Tolerated Diet: low fat, diabetic Follow up with: PRIMARY CARE,MD [Primary Care Provider] - 3-5 Days
== END 2019-05-20 18:00 | DRG 871 ==
LOC: ED 11:59 → IMCU 17:29 → 4A 05-18 17:41
PROVIDERS: ADMIT Internal Medicine; ATTEND Internal Medicine
DX: A41.9 Sepsis, unspecified organism (principal); G93.41 Metabolic encephalopathy; E66.2 Morbid (severe) obesity with alveolar hypoventilation; E87.2 Acidosis; E03.9 Hypothyroidism, unspecified; E11.9 Type 2 diabetes mellitus without complications; I10 Essential (primary) hypertension; G40.909 Epilepsy, unspecified, not intractable, without status epilepticus; E78.2 Mixed hyperlipidemia; Z68.44 Body mass index [BMI] 60.0-69.9, adult; Z79.4 Long term (current) use of insulin; Z88.1 Allergy status to other antibiotic agents; Z83.3 Family history of diabetes mellitus; Z82.49 Family history of ischemic heart disease and other diseases of the circulatory system; Z87.11 Personal history of peptic ulcer disease; Z86.011 Personal history of benign neoplasm of the brain
CPT/HCPCS: 36415; 71045; 74177; 80048; 80053; 81001; 82140; 82805; 82962; 85007; 85025; 85610; 87040; 87076; 87086; 87116; 87186; 93005; 93010; G0378; A6250; A9270-GY; J1815; J1956; J2270; J2405; J3370; J7030; J7040; Q9967

== ENCOUNTER 2020-04-16 19:01 | Inpatient (IN) | payer MEDICAID ==
--- NOTE | 2020-04-16 19:32 | Consultation ---
History of Present Illness - Reason for Consult Consult date: 04/16/20 - History of Present Illness [facility] Tele[facility] Consult Services Date of Service: 04/16/2020 19:04:36 Impression: G93.49 - Encephalopathy Multifactorial Comments/Sign-Out: Acute onset syncope with generalized confusion and weakness now in the setting of STEMI AVF. Moderate BL frontal encephalomalacia suggestive of chronic ischemic damage from ?Trauam Metrics: Last Known Well: 04/16/2020 18:00:00 [facility] Notification Time: 04/16/2020 19:04:00 Stamp Time: 04/16/2020 19:04:36 Time First Login Attempt: 04/16/2020 19:07:52 Symptoms: ams NIHSS Start Assessment Time: 04/16/2020 19:19:56 Patient is not a candidate for Alteplase/Activase. Patient was not deemed candidate for Alteplase/Activase thrombolytics because of Not clearly stroke. CT head was reviewed and results were: Bifrontal chronic changes. Clinical Presentation is not Suggestive of Large Vessel Occlusive Disease ED Physician notified of diagnostic impression and management plan on 04/16/2020 19:28:18 Our recommendations are outlined below. Recommendations: Neuro Checks Bedside Swallow Eval DVT Prophylaxis IV Fluids, Normal Saline Head of Bed 30 Degrees Euglycemia and Avoid Hyperthermia (PRN Acetaminophen) EEG MRI brain Cardiology consult Start keppra 1gm bid Routine Consultation with Inhouse Neurology for Follow up Care Sign Out: Discussed with Emergency Department Provider History of Present Illness: Patient is a 54 year old Female. Patient was brought by EMS for symptoms of ams History of sarcoid, Diabetes Coming form SNF. Was found unresponsive, hypotension 90/60 and diaphoretic and low O2 sat, tachypneic. [address] elevation EMS: 333 BGL Last BP: 102/70 No known anticoagulation No illicit drug use/etoh abuse noted Examination: BP(110/85), Pulse(78), Blood Glucose(333) 1A: Level of Consciousness - Arouses to minor stimulation + 1 1B: Ask Month and Age - Both Questions Right + 0 1C: Blink Eyes & Squeeze Hands - Performs Both Tasks + 0 2: Test Horizontal Extraocular Movements - Normal + 0 3: Test Visual Payne - No Visual Loss + 0 4: Test Facial Palsy (Use Grimace if Obtunded) - Normal symmetry + 0 5A: Test Left Arm Motor Drift - No Drift for 10 Seconds + 0 5B: Test Right Arm Motor Drift - No Drift for 10 Seconds + 0 6A: Test Left Leg Motor Drift - Some Effort Against [place] + 2 6B: Test Right Leg Motor Drift - Some Effort Against [place] + 2 7: Test Limb Ataxia (FNF/Heel-Mosley) - No Ataxia + 0 8: Test Sensation - Normal; No sensory loss + 0 9: Test Language/Aphasia - Normal; No aphasia + 0 10: Test Dysarthria - Normal + 0 11: Test Extinction/Inattention - No abnormality + 0 NIHSS Score: 5 Patient/Family was informed the Neurology Consult would happen via TeleHealth consult by way of interactive audio and video telecommunications and consented to receiving care in this manner. Due to the immediate potential for life-threatening deterioration due to underlying acute neurologic illness, I spent 25 minutes providing critical care. This time includes time for face to face visit via telemedicine, review of medical records, imaging studies and discussion of findings with providers, the patient and/or family. Dr Guilherme Ruiz [facility] Case [id number] Medications and Allergies Allergies Allergy/AdvReac Type Severity Reaction Status Date / Time erythromycin base Allergy Itching Verified 11/26/18 06:03 [From Erythrocin] Penicillins Allergy Rash Verified 11/26/18 06:02 Home Medications Medication Instructions Recorded Confirmed Last Taken Type Atorvastatin Calcium 40 mg PO BID 11/26/18 05/17/19 11/25/18 08:00 History Cholecalciferol Vit D3 [Vitamin D3 1,000 1000units PO QDAY 11/26/18 05/17/19 11/25/18 08:00 History 1,000 UNIT TAB] HYDROcodone/APAP 5-325 [[place] 1 each PO Q4HR PRN 11/26/18 05/17/19 Unknown History 5-325 mg TAB] Hydrocortisone [Cortef TAB] 10 mg PO BID 11/26/18 05/17/19 Unknown History Insulin Glargine,Hum.rec.anlog 60 unit SQ QHS 11/26/18 05/17/19 Unknown History [Lantus Solostar] Insulin Glargine,Hum.rec.anlog See Protocol SUB-Q QACHS 11/26/18 05/17/19 Unknown History [Lantus Solostar] Lasix TAB 20 mg PO BID 11/26/18 05/17/19 Unknown History Levothyroxine [Synthroid] 50 mcg PO QAM 11/26/18 05/17/19 11/24/18 08:00 History Lispro Insulin [HumaLOG] See Protocol SUB-Q ACHS 11/26/18 05/17/19 11/25/18 History Metoprolol [Lopressor TAB] 50 mg PO BID 11/26/18 05/17/19 Unknown History Mometasone 0.1% (Nf) 0.1 units TP BID 11/26/18 05/17/19 Unknown History Pantoprazole [Protonix TAB] 40 mg PO BID 11/26/18 05/17/19 Unknown History Petrolatum,White [Vaseline White 5 gm TP BID 11/26/18 05/17/19 Unknown History Petroleum] Pregabalin [Lyrica] 150 mg PO BID 11/26/18 05/17/19 11/25/18 08:00 History lamoTRIgine [LaMICtal] 25 mg PO BID 11/26/18 05/17/19 Unknown History ALBUTEROL NEB's [Proventil 0.083% 2.5 mg IH Q4HRT PRN nebu 05/20/19 Unknown Rx NEBS] Apixaban [Eliquis] 5 mg PO BID tablet 05/20/19 Unknown Rx AtorvaSTATin [Lipitor] 40 mg PO QDAY tablet 05/20/19 Unknown Rx
--- NOTE | 2020-04-16 19:37 | Cat Scan Report ---
CT head/brain wo con INDICATION / CLINICAL INFORMATION: 54 years Female; neuro deficits <6hrs or sx present upon awakening. TECHNIQUE: Routine CT head without contrast. All CT scans at this location are performed using CT dos e reduction for ALARA by means of automated exposure control. COMPARISON: The study is compared to the previous CT of 11/27/2018. FINDINGS: BRAIN / INTRACRANIAL CONTENTS: The patient remains status post post bifrontal craniotomy with encepha lomalacia involving underlying frontal lobes, greater on the left. The extra-axial dilatation the fro ntal horns is also more prominent on the left. There is a residual mass extending along the left para falcine region which most likely reflects residual meningioma given the constellation of findings at. Overall, the findings correlate with the previous CT at. There is residual mass effect on the left w ith effacement of the left sylvian fissure which is also unchanged. 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 There is no clear CT evidence of acute intracranial hemorrhage. ORBITS: There has been interval development of opacification along the posterior right SINUSES / MASTOIDS: Sphenoid sinus. CRANIOCERVICAL JUNCTION: No significant abnormality. ADDITIONAL FINDINGS: None. IMPRESSION: 1. There are stable postoperative changes involving frontal lobes with encephalomalacia and residual left parafalcine lesion as detailed above. Overall, this been no significant interval change from 11/27. Signer Name: Rashawn Grimaldo MD Signed: 04/16/2020 7:32 PM Workstation Name: [id number]
--- NOTE | 2020-04-16 19:41 | Emergency Department Report ---
HPI - General Chief Complaint: Altered Mental Status Time Seen by Provider: 04/16/20 19:31 - HPI HPI: Room 4 The patient is a 54-year-old female present with a chief complaint of altered mental status. The patient was found unresponsive and diaphoretic at home. In the ED the patient states she feels groggy. Patient admits to shortness of breath and cough. When asked if she remembers how she ended up in the emergency department the patient states she does not know. ED Past Medical Hx - Past Medical History Hx Hypertension: Yes Hx Diabetes: Yes Hx Seizures: Yes (Hx meningioma) Additional medical history: respiratory failure,hypothyroidism,sleep apnea,encaphalopath,sarcoidosis,fibromyalgia,anemia - Surgical History Additional Surgical History: Daughter states patient did have a feeding tube previously - Family History Family history: no significant - Social History Smoking Status: Unknown if ever smoked Substance Use Type: None - Medications Home Medications: Home Medications Medication Instructions Recorded Confirmed Last Taken Type Atorvastatin Calcium 40 mg PO BID 11/26/18 05/17/19 11/25/18 08:00 History Cholecalciferol Vit D3 [Vitamin D3 1,000 1000units PO QDAY 11/26/18 05/17/19 11/25/18 08:00 History 1,000 UNIT TAB] HYDROcodone/APAP 5-325 [[place] 1 each PO Q4HR PRN 11/26/18 05/17/19 Unknown History 5-325 mg TAB] Hydrocortisone [Cortef TAB] 10 mg PO BID 11/26/18 05/17/19 Unknown History Insulin Glargine,Hum.rec.anlog 60 unit SQ QHS 11/26/18 05/17/19 Unknown History [Lantus Solostar] Insulin Glargine,Hum.rec.anlog See Protocol SUB-Q QACHS 11/26/18 05/17/19 Unkn own History [Lantus Solostar] Lasix TAB 20 mg PO BID 11/26/18 05/17/19 Unknown History Levothyroxine [Synthroid] 50 mcg PO QAM 11/26/18 05/17/19 11/24/18 08:00 History Lispro Insulin [HumaLOG] See Protocol SUB-Q ACHS 11/26/18 05/17/19 11/25/18 History Metoprolol [Lopressor TAB] 50 mg PO BID 11/26/18 05/17/19 Unknown History Mometasone 0.1% (Nf) 0.1 units TP BID 11/26/18 05/17/19 Unknown History Pantoprazole [Protonix TAB] 40 mg PO BID 11/26/18 05/17/19 Unknown History Petrolatum,White [Vaseline White 5 gm TP BID 11/26/18 05/17/19 Unknown History Petroleum] Pregabalin [Lyrica] 150 mg PO BID 11/26/18 05/17/19 11/25/18 08:00 History lamoTRIgine [LaMICtal] 25 mg PO BID 11/26/18 05/17/19 Unknown History ALBUTEROL NEB's [Proventil 0.083% 2.5 mg IH Q4HRT PRN nebu 05/20/19 Unknown Rx NEBS] Apixaban [Eliquis] 5 mg PO BID tablet 05/20/19 Unknown Rx AtorvaSTATin [Lipitor] 40 mg PO QDAY tablet 05/20/19 Unknown Rx ED Review of Systems ROS: Stated complaint: CODE STEMI Other details as noted in HPI Comment: Unobtainable due to pts medical conditions Physical Exam - Physical Exam Vital Signs: Vital Signs 04/16/20 19:34 Temperature 100.1 F H Pulse Rate 103 H Blood Pressure 98/54 O2 Sat by Pulse 92 Oximetry Physical Exam: GENERAL: The patient is well-developed well-nourished female lying on stretcher appearing diaphoretic. [] HEENT: Normocephalic. Atraumatic. Extraocular motions are intact. Patient has moist mucous membranes. NECK: Supple. Trachea midline CHEST/LUNGS: Clear to auscultation. There is no respiratory distress noted. HEART/CARDIOVASCULAR: Regular. There is no tachycardia. There is no gallop rub or murmur. ABDOMEN: Abdomen is soft, nontender. Patient has normal bowel sounds. There is no abdominal distention. SKIN: There is no rash. There is no diaphoresis. NEURO: The patient is awake, alert, and oriented. The patient is cooperative. The patient has normal speech MUSCULOSKELETAL:There is no evidence of acute injury. ED Course Vital Signs 04/16/20 19:34 Temperature 100.1 F H Pulse Rate 103 H Blood Pressure 98/54 O2 Sat by Pulse 92 Oximetry ED Medical Decision Making - Lab Data Result diagrams: 04/16/20 20:37 04/16/20 19:29 Laboratory Tests 04/16/20 04/16/20 04/16/20 19:29 19:29 19:31 WBC RBC Hgb Hct MCV MCH MCHC RDW Plt Count Lymph % (Auto) [place] % (Auto) Eos % (Auto) Baso % (Auto) Lymph # (Auto) [place] # (Auto) Eos # (Auto) Baso # (Auto) Seg Neutrophils % Seg Neutrophils # PT 19.5 H INR 1.64 H APTT 43.3 H Sodium 137 Potassium 5.3 H Chloride 102.5 Carbon Dioxide 20 L Anion Gap 20 BUN 49 H Creatinine 1.7 H Estimated GFR 38 BUN/Creatinine Ratio 29 Glucose 295 H POC Glucose 243 H Calcium 10.1 Magnesium Ammonia Total Creatine Kinase CK-MB (CK-2) CK-MB (CK-2) Rel Index Troponin T 0.067 H Triglycerides 171 H Cholesterol 212 H LDL Cholesterol Direct 147 H HDL Cholesterol 35 L Cholesterol/HDL Ratio 6.05 TSH Free T4 Plasma/Serum Alcohol 04/16/20 04/16/20 04/16/20 19:45 19:45 19:45 WBC RBC Hgb Hct MCV MCH MCHC RDW Plt Count Lymph % (Auto) [place] % (Auto) Eos % (Auto) Baso % (Auto) Lymph # (Auto) [place] # (Auto) Eos # (Auto) Baso # (Auto) Seg Neutrophils % Seg Neutrophils # PT INR APTT Sodium Potassium Chloride Carbon Dioxide Anion Gap BUN Creatinine Estimated GFR BUN/Creatinine Ratio Glucose POC Glucose Calcium Magnesium 2.70 H Ammonia Total Creatine Kinase 303 H CK-MB (CK-2) < 1.0 CK-MB (CK-2) Rel Index 0.3 Troponin T Triglycerides Cholesterol LDL Cholesterol Direct HDL Cholesterol Cholesterol/HDL Ratio TSH 0.679 Free T4 0.94 Plasma/Serum Alcohol < 0.01 04/16/20 04/16/20 19:57 20:37 WBC 20.6 H RBC 4.86 Hgb 11.4 Hct 36.3 MCV 75 L MCH 24 L MCHC 32 RDW 15.6 H Plt Count 470 H Lymph % (Auto) [employer] Atlantic % (Auto) [employer] Eos % (Auto) [employer] Baso % (Auto) [employer] Lymph # (Auto) [employer] [place] # (Auto) [employer] Eos # (Auto) [employer] Baso # (Auto) [employer] Seg Neutrophils % [employer] Seg Neutrophils # [employer] PT INR APTT Sodium Potassium Chloride Carbon Dioxide Anion Gap BUN Creatinine Estimated GFR BUN/Creatinine Ratio Glucose POC Glucose Calcium Magnesium Ammonia 50.0 Total Creatine Kinase CK-MB (CK-2) CK-MB (CK-2) Rel Index Troponin T Triglycerides Cholesterol LDL Cholesterol Direct HDL Cholesterol Cholesterol/HDL Ratio TSH Free T4 Plasma/Serum Alcohol - EKG Data -: EKG Interpreted by Me EKG shows normal: sinus rhythm Rate: tachycardia (104 bpm) - EKG Data When compared to previous EKG there are: previous EKG unavailable Interpretation: nonspecific ST-T wave cliff - Radiology Data Radiology results: report reviewed (CT head, chest x-ray), image reviewed (CT head, chest x-ray) interpreted by me: Chest [id number], no definite focal infiltrates. No pneumothorax Findings [facility] [address] [place] [address] Cat Scan Report Signed Patient: TANYA QUINTERO MR#: [id number] : 1965 ct:[id number] Age/Sex: 54 / F ADM Date: 04/16/20 Loc: ED Attending Dr: Ordering Physician: JOSE M VARGAS MD Date of Service: 04/16/20 Procedure(s): CT head/brain wo con Accession Number(s): [id number] cc: JOSE M VARGAS MD CT head/brain wo con INDICATION / CLINICAL INFORMATION: 54 years Female; neuro deficits <6hrs or sx present upon awakening. TECHNIQUE: Routine CT head without contrast. All CT scans at this location are performed using CT dose reduction for ALARA by means of automated exposure control. COMPARISON: The study is compared to the previous CT of 11/27/2018. FINDINGS: BRAIN / INTRACRANIAL CONTENTS: The patient remains status post post bifrontal craniotomy with encephalomalacia involving underlying frontal lobes, greater on the left. The extra-axial dilatation the frontal horns is also more prominent on the left. There is a residual mass extending along the left parafalcine region which most likely reflects residual meningioma given the constellation of findings at. Overall, the findings correlate with the previous CT at. There is residual mass effect on the left with effacement of the left sylvian fissure which is also unchanged. 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 There is no clear CT evidence of acute intracranial hemorrhage. ORBITS: There has been interval development of opacification along the posterior right SINUSES / MASTOIDS: Sphenoid sinus. CRANIOCERVICAL JUNCTION: No significant abnormality. ADDITIONAL FINDINGS: None. IMPRESSION: 1. There are stable postoperative changes involving frontal lobes with encephalomalacia and residual left parafalcine lesion as detailed above. Overall, this been no significant interval change from 11/27/2018. Signer Name: Rashawn Grimaldo MD Signed: 04/16/2020 7:32 PM Workstation Name: [id number] Transcribed By: MR Dictated By: Rashawn Grimaldo MD Electronically Authenticated By: Rashawn Grimaldo MD Signed Date/Time: 04/16/201931 DD/ 23 TD/TT: Findings [facility] [address] [place] [address] XRay Report Signed Patient: TANYA QUINTERO MR#: [id number] : 1965 Acct:[id number] Age/Sex: 54 / F ADM Date: 04/16/20 Loc: ED Attending Dr: Ordering Physician: JOSE M VARGAS MD Date of Service: 04/16/20 Procedure(s): XR chest 1V ap Accession Number(s): [id number] cc: JOSE M VARGAS MD Fluoro Time In Minutes: CHEST 1 VIEW INDICATION: Low-grade temperature, altered mental state COMPARISON: 05/16/2019 FINDINGS: SUPPORT DEVICES: None. HEART / MEDIASTINUM: Persisting cardiac enlargement. Tortuosity thoracic aorta is present LUNGS / PLEURA: No significant pulmonary or pleural abnormality. No pneumothorax. ADDITIONAL FINDINGS: IMPRESSION: 1. No acute cardiopulmonary disease 2. Cardiac enlargement Signer Name: Mamadou Dorantes MD Signed: 04/16/2020 8:42 PM Workstation Name: [id number] Transcribed By: WG Dictated By: Mamadou conway MD Electronically Authenticated By: Mamadou Dorantes MD Signed Date/Time: 04/16/202041 DD/ 41 TD/TT: - Differential Diagnosis Altered mental status, UTI, sepsis, pneumonia, bronchitis Critical care attestation.: If time is entered above; I have spent that time in minutes in the direct care of this critically ill patient, excluding procedure time. ED Disposition Clinical Impression: Altered mental status, Leukocytosis Disposition: DC09 OP ADMIT IP TO THIS HOSP Is pt being admited?: Yes Does the pt Need Aspirin: Yes Condition: Fair Time of Disposition: 22:29 (Hospitalist notified (Kermit))
[2020-04-16] MEDS ORDERED: SODIUM CHLORIDE 0.9% 1000 ML 1,000 ML IV ONE ×2 (19:44)
[2020-04-16 19:50] LABS: INR 1.64 (0.87-1.13)
[2020-04-16 19:51] LABS: Partial Thromboplastin Time 43.3 Sec. (24.2-36.6)
[2020-04-16 19:59] LABS: Calcium 10.1 mg/dL (8.4-10.2)
[2020-04-16 20:24] LABS: Chol/HDL Ratio 6.05 %
[2020-04-16 20:29] LABS: Creatine Kinase MB < 1.0 ng/mL (0.0-4.0)
[2020-04-16 20:33] LABS: Free T4 (Free Thyroxine) 0.94 ng/dL (0.76-1.46)
--- NOTE | 2020-04-16 20:46 | XRay Report ---
CHEST 1 VIEW INDICATION: Low-grade temperature, altered mental state COMPARISON: 05/16/2019 FINDINGS: SUPPORT DEVICES: None. HEART / MEDIASTINUM: Persisting cardiac enlargement. Tortuosity thoracic aorta is present LUNGS / PLEURA: No significant pulmonary or pleural abnormality. No pneumothorax. ADDITIONAL FINDINGS: IMPRESSION: 1. No acute cardiopulmonary disease 2. Cardiac enlargement Signer Name: Mamadou Dorantes MD Signed: 04/16/2020 8:42 PM Workstation Name: [id number]
[2020-04-16 21:09] LABS: Hematocrit 36.3 % (30.3-42.9); Hemoglobin 11.4 gm/dl (10.1-14.3); Mean Corpuscular HGB Conc 32 % (30-34); Mean Corpuscular Volume 75 fl (79-97); Red Blood Count 4.86 M/mm3 (3.65-5.03); Red Cell Distribution Width 15.6 % (13.2-15.2)
[2020-04-16 21:13] LABS: Platelet Count 470 K/mm3 (140-440)
[2020-04-16] MEDS ORDERED: levETIRAcetam 1000 MG/NS 0.75% 1,000 MG/100 ML BAG IV ONE (21:54)
--- NOTE | 2020-04-16 22:32 | History and Physical Report ---
History of Present Illness History of present illness: Comments/Sign-Out: Acute onset syncope with generalized confusion and weakness now in the setting of STEMI AVF. Moderate BL frontal encephalomalacia suggestive of chronic ischemic damage from ?Trauam Metrics: Last Known Well: 04/16/2020 18:00:00 [employer] Notification Time: 04/16/2020 19:04:00 Stamp Time: 04/16/2020 19:04:36 Time First Login Attempt: 04/16/2020 19:07:52 Symptoms: ams NIHSS Start Assessment Time: 04/16/2020 19:19:56 Patient is not a candidate for Alteplase/Activase. Patient was not deemed candidate for Alteplase/Activase thrombolytics because of Not clearly stroke. CT head was reviewed and results were: Bifrontal chronic changes. Clinical Presentation is not Suggestive of Large Vessel Occlusive Disease ED Physician notified of diagnostic impression and management plan on 04/16/2020 19:28:18 Our recommendations are outlined below. Recommendations: Neuro Checks Bedside Swallow Eval DVT Prophylaxis IV Fluids, Normal Saline Head of Bed 30 Degrees Euglycemia and Avoid Hyperthermia (PRN Acetaminophen) EEG MRI brain Cardiology consult Start keppra 1gm bid Medications and Allergies Allergies Allergy/AdvReac Type Severity Reaction Status Date / Time erythromycin base Allergy Itching Verified 11/26/18 06:03 [From Erythrocin] Penicillins Allergy Rash Verified 11/26/18 06:02 Home Medications Medication Instructions Recorded Confirmed Last Taken Type Atorvastatin Calcium 40 mg PO BID 11/26/18 05/17/19 11/25/18 08:00 History Cholecalciferol Vit D3 [Vitamin D3 1,000 1000units PO QDAY 11/26/18 05/17/19 11/25/18 08:00 History 1,000 UNIT TAB] HYDROcodone/APAP 5-325 [[place] 1 each PO Q4HR PRN 11/26/18 05/17/19 Unknown History 5-325 mg TAB] Hydrocortisone [Cortef TAB] 10 mg PO BID 11/26/18 05/17/19 Unknown History Insulin Glargine,Hum.rec.anlog 60 unit SQ QHS 11/26/18 05/17/19 Unknown History [Lantus Solostar] Insulin Glargine,Hum.rec.anlog See Protocol SUB-Q QACHS 11/26/18 05/17/19 Unknown History [Lantus Solostar] Lasix TAB 20 mg PO BID 11/26/18 05/17/19 Unknown History Levothyroxine [Synthroid] 50 mcg PO QAM 11/26/18 05/17/19 11/24/18 08:00 History Lispro Insulin [HumaLOG] See Protocol SUB-Q ACHS 11/26/18 05/17/19 11/25/18 History Metoprolol [Lopressor TAB] 50 mg PO BID 11/26/18 05/17/19 Unknown History Mometasone 0.1% (Nf) 0.1 units TP BID 11/26/18 05/17/19 Unknown History Pantoprazole [Protonix TAB] 40 mg PO BID 11/26/18 05/17/19 Unknown History Petrolatum,White [Vaseline White 5 gm TP BID 11/26/18 05/17/19 Unknown History Petroleum] Pregabalin [Lyrica] 150 mg PO BID 11/26/18 05/17/19 11/25/18 08:00 History lamoTRIgine [LaMICtal] 25 mg PO BID 11/26/18 05/17/19 Unknown History ALBUTEROL NEB's [Proventil 0.083% 2.5 mg IH Q4HRT PRN nebu 05/20/19 Unknown Rx NEBS] Apixaban [Eliquis] 5 mg PO BID tablet 05/20/19 Unknown Rx AtorvaSTATin [Lipitor] 40 mg PO QDAY tablet 05/20/19 Unknown Rx Active Meds: Active Medications Levofloxacin/Dextrose (Levaquin 500mg/100ml) 500 mg in 100 mls @ 100 mls/hr IV ONCE ONE; Protocol Stop: 04/16/20 22:52 Exam - Constitutional Vitals: Temp Pulse Resp BP Pulse Ox 100.1 F H 103 H 98/54 92 04/16/20 19:34 04/16/20 19:34 04/16/20 19:34 04/16/20 19:34 HEART Score - HEART Score Troponin: Troponin T 0.067 ng/mL (0.00-0.029) H 04/16/20 19:29 Results - Labs CBC & Chem 7: 04/16/20 20:37 04/16/20 19:29 Labs: Abnormal lab results 04/16/20 04/16/20 04/16/20 Range/Units 19:29 19:29 19:31 WBC (4.5-11.0) K/mm3 MCV (79-97) fl MCH (28-32) pg RDW (13.2-15.2) % Plt Count (140-440) K/mm3 PT 19.5 H (12.2-14.9) Sec. INR 1.64 H (0.87-1.13) APTT 43.3 H (24.2-36.6) Sec. Potassium 5.3 H (3.6-5.0) mmol/L Carbon Dioxide 20 L (22-30) mmol/L BUN 49 H (7-17) mg/dL Creatinine 1.7 H (0.6-1.2) mg/dL Glucose 295 H (65-100) mg/dL POC Glucose 243 H (70-105) mg/dL Magnesium (1.7-2.3) mg/dL Total Creatine Kinase (30-135) units/L Troponin T 0.067 H (0.00-0.029) ng/mL Triglycerides 171 H (2-149) mg/dL Cholesterol 212 H (50-199) mg/dL LDL Cholesterol Direct 147 H (50-130) mg/dL HDL Cholesterol 35 L (40-59) mg/dL 04/16/20 04/16/20 Range/Units 19:45 20:37 WBC 20.6 H (4.5-11.0) K/mm3 MCV 75 L (79-97) fl MCH 24 L (28-32) pg RDW 15.6 H (13.2-15.2) % Plt Count 470 H (140-440) K/mm3 PT (12.2-14.9) Sec. INR (0.87-1.13) APTT (24.2-36.6) Sec. Potassium (3.6-5.0) mmol/L Carbon Dioxide (22-30) mmol/L BUN (7-17) mg/dL Creatinine (0.6-1.2) mg/dL Glucose (65-100) mg/dL POC Glucose (70-105) mg/dL Magnesium 2.70 H (1.7-2.3) mg/dL Total Creatine Kinase 303 H (30-135) units/L Troponin T (0.00-0.029) ng/mL Triglycerides (2-149) mg/dL Cholesterol (50-199) mg/dL LDL Cholesterol Direct (50-130) mg/dL HDL Cholesterol (40-59) mg/dL
[2020-04-16] MEDS ORDERED: SODIUM CHLORIDE 0.9% 1000 ML 1,000 ML ONE (22:44)
[2020-04-17 01:54] LABS: Anisocytosis 1+; Band Neutrophils # (Manual) 0.4 K/mm3; Platelet Estimate Consistent w Auto; Total Cells Counted 100
--- NOTE | 2020-04-17 07:35 | History and Physical Report ---
History of Present Illness Date of examination: 04/16/20 Date of admission: 04/16/20 22:25 Chief complaint: Altered sensorium since a.m. History of present illness: 54-year-old female with multiple medical problems including insulin-dependent diabetes, hypertension, and GERD, peripheral neuropathy and hyperlipidemia was found unresponsive and diaphoretic at home. In the ED the patient was feeling groggy and admits to shortness of breath and cough. Very when asked if she remembers how she ended up in the emergency room patient could not answer the question. Very poor historian. No fever or chills. Not known whether exposed to coronavirus. - Past Medical History --Hypertension: Yes --Diabetes: Yes --Seizures: Yes (Hx meningioma) --Additional medical history: respiratory failure,hypothyroidism,sleep apnea,encaphalopath,sarcoidosis,fibromyalgia,anemia - Surgical History Additional Surgical History: Daughter states patient did have a feeding tube previously - Family History Family history: no significant - Social History Smoking Status: Unknown if ever smoked Substance Use Type: None - Medications Home Medications: Home Medications Medication Instructions Recorded Confirmed Last Taken Type Atorvastatin Calcium 40 mg PO BID 11/26/18 05/17/19 11/25/18 08:00 History Cholecalciferol Vit D3 [Vitamin D3 1,000 1000units PO QDAY 11/26/18 05/17/19 11/25/18 08:00 History 1,000 UNIT TAB] HYDROcodone/APAP 5-325 [[place] 1 each PO Q4HR PRN 11/26/18 05/17/19 Unknown History 5-325 mg TAB] Hydrocortisone [Cortef TAB] 10 mg PO BID 11/26/18 05/17/19 Unknown History Insulin Glargine,Hum.rec.anlog 60 unit SQ QHS 11/26/18 05/17/19 Unknown History [Lantus Solostar] Insulin Glargine,Hum.rec.anlog See Protocol SUB-Q QACHS 11/26/18 05/17/19 Unknown History [Lantus Solostar] Lasix TAB 20 mg PO BID 11/26/18 05/17/19 Unknown History Levothyroxine [Synthroid] 50 mcg PO QAM 11/26/18 05/17/19 11/24/18 08:00 History Lispro Insulin [HumaLOG] See Protocol SUB-Q ACHS 11/26/18 05/17/19 11/25/18 History Metoprolol [Lopressor TAB] 50 mg PO BID 11/26/18 05/17/19 Unknown History Mometasone 0.1% (Nf) 0.1 units TP BID 11/26/18 05/17/19 Unknown History Pantoprazole [Protonix TAB] 40 mg PO BID 11/26/18 05/17/19 Unknown History Petrolatum,White [Vaseline White 5 gm TP BID 11/26/18 05/17/19 Unknown History Petroleum] Pregabalin [Lyrica] 150 mg PO BID 11/26/18 05/17/19 11/25/18 08:00 History lamoTRIgine [LaMICtal] 25 mg PO BID 11/26/18 05/17/19 Unknown History ALBUTEROL NEB's [Proventil 0.083% 2.5 mg IH Q4HRT PRN nebu 05/20/19 Unknown Rx NEBS] Apixaban [Eliquis] 5 mg PO BID tablet 05/20/19 Unknown Rx AtorvaSTATin [Lipitor] 40 mg PO QDAY tablet 05/20/19 Unknown Rx Review of Systems ROS: Stated complaint: CODE STEMI Other details as noted in HPI Comment: Unobtainable due to pts medical conditions Medications and Allergies Allergies Allergy/AdvReac Type Severity Reaction Status Date / Time erythromycin base Allergy Itching Verified 11/26/18 06:03 [From Erythrocin] Penicillins Allergy Rash Verified 11/26/18 06:02 Home Medications Medication Instructions Recorded Confirmed Last Taken Type Atorvastatin Calcium 40 mg PO BID 11/26/18 05/17/19 11/25/18 08:00 History Cholecalciferol Vit D3 [Vitamin D3 1,000 1000units PO QDAY 11/26/18 05/17/19 11/25/18 08:00 History 1,000 UNIT TAB] HYDROcodone/APAP 5-325 [[place] 1 each PO Q4HR PRN 11/26/18 05/17/19 Unknown History 5-325 mg TAB] Hydrocortisone [Cortef TAB] 10 mg PO BID 11/26/18 05/17/19 Unknown History Insulin Glargine,Hum.rec.anlog 60 unit SQ QHS 11/26/18 05/17/19 Unknown History [Lantus Solostar] Insulin Glargine,Hum.rec.anlog See Protocol SUB-Q QACHS 11/26/18 05/17/19 Unknown History [Lantus Solostar] Lasix TAB 20 mg PO BID 11/26/18 05/17/19 Unknown History Levothyroxine [Synthroid] 50 mcg PO QAM 11/26/18 05/17/19 11/24/18 08:00 History Lispro Insulin [HumaLOG] See Protocol SUB-Q ACHS 11/26/18 05/17/19 11/25/18 History Metoprolol [Lopressor TAB] 50 mg PO BID 11/26/18 05/17/19 Unknown History Mometasone 0.1% (Nf) 0.1 units TP BID 11/26/18 05/17/19 Unknown History Pantoprazole [Protonix TAB] 40 mg PO BID 11/26/18 05/17/19 Unknown History Petrolatum,White [Vaseline White 5 gm TP BID 11/26/18 05/17/19 Unknown History Petroleum] Pregabalin [Lyrica] 150 mg PO BID 11/26/18 05/17/19 11/25/18 08:00 History lamoTRIgine [LaMICtal] 25 mg PO BID 11/26/18 05/17/19 Unknown History ALBUTEROL NEB's [Proventil 0.083% 2.5 mg IH Q4HRT PRN nebu 05/20/19 Unknown Rx NEBS] Apixaban [Eliquis] 5 mg PO BID tablet 05/20/19 Unknown Rx AtorvaSTATin [Lipitor] 40 mg PO QDAY tablet 05/20/19 Unknown Rx Exam - Constitutional Vitals: Temp Pulse Resp BP Pulse Ox 100.6 F H 121 H 25 H 98/54 95 04/17/20 05:10 04/17/20 05:10 04/17/20 01:00 04/17/20 05:10 04/17/20 01:00 General appearance: Present: no acute distress, well-nourished - EENT Eyes: Present: PERRL ENT: hearing intact, clear oral mucosa - Neck Neck: Present: supple, normal ROM - Respiratory Respiratory effort: normal Respiratory: bilateral: CTA - Cardiovascular Rhythm: regular Heart Sounds: Present: S1 & S2. Absent: rub, click - Extremities Extremities: no ischemia (78), pulses intact, pulses symmetrical, No edema Peripheral Pulses: within normal limits - Abdominal General gastrointestinal: Present: soft, non-tender, non-distended, normal bowel sounds Female genitourinary: Present: normal - Rectal Rectal Exam: deferred - Integumentary Integumentary: Present: clear, warm, dry - Musculoskeletal Musculoskeletal: generalized weakness - Psychiatric Psychiatric: other (Lethargic and altered sensorium) - Neurologic Neurologic: moves all extremities - Allied Health Allied health notes reviewed: nursing, case management HEART Score - HEART Score History: Highly suspicious Age: 45-65 Risk factors: > 3 risk factors or hx of atherosclerotic disease Troponin: Troponin T 0.067 ng/mL (0.00-0.029) H 04/16/20 19:29 Troponin: 1-3x normal limit - Critical Actions Critical Actions: 4-6 pts:12-16.6% risk of adverse cardiac event. Should be admitted Results - Labs CBC & Chem 7: 04/16/20 20:37 04/16/20 19:29 Labs: Laboratory Last Values WBC 20.6 K/mm3 (4.5-11.0) H 04/16/20 20:37 RBC 4.86 M/mm3 (3.65-5.03) 04/16/20 20:37 Hgb 11.4 gm/dl (10.1-14.3) 04/16/20 20:37 Hct 36.3 % (30.3-42.9) 04/16/20 20:37 MCV 75 fl (79-97) L 04/16/20 20:37 MCH 24 pg (28-32) L 04/16/20 20:37 MCHC 32 % (30-34) 04/16/20 20:37 RDW 15.6 % (13.2-15.2) H 04/16/20 20:37 Plt Count 470 K/mm3 (140-440) H 04/16/20 20:37 Lymph % (Auto) Contour Path T[employer] Operator 04/16/20 20:37 [place] % (Auto) Contour Path T[employer] Operator 04/16/20 20:37 Eos % (Auto) Contour Path T[employer] Operator 04/16/20 20:37 Baso % (Auto) Contour Path T[employer] Operator 04/16/20 20:37 Lymph # (Auto) Contour Path T[employer] Operator 04/16/20 20:37 [place] # (Auto) Contour Path T[employer] Operator 04/16/20 20:37 Eos # (Auto) Contour Path T[employer] Operator 04/16/20 20:37 Baso # (Auto) Contour Path T[employer] Operator 04/16/20 20:37 Add Manual Diff Complete 04/16/20 20:37 Total Counted 100 04/16/20 20:37 Seg Neutrophils % Contour Path [employer] Operator 04/16/20 20:37 Seg Neuts % (Manual) 71.0 % (40.0-70.0) H 04/16/20 20:37 Band Neutrophils % 2.0 % 04/16/20 20:37 Lymphocytes % (Manual) 17.0 % (13.4-35.0) 04/16/20 20:37 Monocytes % (Manual) 10.0 % (0.0-7.3) H 04/16/20 20:37 Nucleated RBC % Not Reportable 04/16/20 20:37 Seg Neutrophils # Contour Path T[employer] Operator 04/16/20 20:37 Seg Neutrophils # Man 14.6 K/mm3 (1.8-7.7) H 04/16/20 20:37 Band Neutrophils # 0.4 K/mm3 04/16/20 20:37 Lymphocytes # (Manual) 3.5 K/mm3 (1.2-5.4) 04/16/20 20:37 Abs React Lymphs (Man) 0.0 K/mm3 04/16/20 20:37 Monocytes # (Manual) 2.1 K/mm3 (0.0-0.8) H 04/16/20 20:37 Eosinophils # (Manual) 0.0 K/mm3 (0.0-0.4) 04/16/20 20:37 Basophils # (Manual) 0.0 K/mm3 (0.0-0.1) 04/16/20 20:37 Metamyelocytes # 0.0 K/mm3 04/16/20 20:37 Myelocytes # 0.0 K/mm3 04/16/20 20:37 Promyelocytes # 0.0 K/mm3 04/16/20 20:37 Blast Cells # 0.0 K/mm3 04/16/20 20:37 WBC Morphology Not Reportable 04/16/20 20:37 Hypersegmented Neuts Not Reportable 04/16/20 20:37 Hyposegmented Neuts Not Reportable 04/16/20 20:37 Hypogranular Neuts Not Reportable 04/16/20 20:37 Smudge Cells Not Reportable 04/16/20 20:37 Toxic Granulation Not Reportable 04/16/20 20:37 Toxic Vacuolation Not Reportable 04/16/20 20:37 Dohle Bodies Not Reportable 04/16/20 20:37 Pelger-Huet Anomaly Not Reportable 04/16/20 20:37 Marcel Rods Not Reportable 04/16/20 20:37 Platelet Estimate Consistent w auto 04/16/20 20:37 Clumped Platelets Not Reportable 04/16/20 20:37 Plt Clumps, EDTA Not Reportable 04/16/20 20:37 Large Platelets Not Reportable 04/16/20 20:37 Giant Platelets Not Reportable 04/16/20 20:37 Platelet Satelliting Not Reportable 04/16/20 20:37 Plt Morphology Comment Not Reportable 04/16/20 20:37 RBC Morphology Not Reportable 04/16/20 20:37 Dimorphic RBCs Not Reportable 04/16/20 20:37 Polychromasia Not Reportable 04/16/20 20:37 Hypochromasia Not Reportable 04/16/20 20:37 Poikilocytosis Not Reportable 04/16/20 20:37 Anisocytosis 1+ 04/16/20 20:37 Microcytosis Not Reportable 04/16/20 20:37 Macrocytosis Not Reportable 04/16/20 20:37 Spherocytes Not Reportable 04/16/20 20:37 Pappenheimer Bodies Not Reportable 04/16/20 20:37 Sickle Cells Not Reportable 04/16/20 20:37 Target Cells Not Reportable 04/16/20 20:37 Tear Drop Cells Not Reportable 04/16/20 20:37 Ovalocytes Not Reportable 04/16/20 20:37 Helmet Cells Not Reportable 04/16/20 20:37 [place] Bodies Not Reportable 04/16/20 20:37 [place] Rings Not Reportable 04/16/20 20:37 [place] Cells Not Reportable 04/16/20 20:37 Bite Cells Not Reportable 04/16/20 20:37 Crenated Cell Not Reportable 04/16/20 20:37 Elliptocytes Not Reportable 04/16/20 20:37 Acanthocytes (Spur) Not Reportable 04/16/20 20:37 Rouleaux Not Reportable 04/16/20 20:37 Hemoglobin C Crystals Not Reportable 04/16/20 20:37 Schistocytes Not Reportable 04/16/20 20:37 Malaria parasites Not Reportable 04/16/20 20:37 Levi Bodies Not Reportable 04/16/20 20:37 Hem Pathologist Commnt No 04/16/20 20:37 PT 19.5 Sec. (12.2-14.9) H 04/16/20 19:29 INR 1.64 (0.87-1.13) H 04/16/20 19:29 APTT 43.3 Sec. (24.2-36.6) H 04/16/20 19:29 Sodium 137 mmol/L (137-145) 04/16/20 19:29 Potassium 5.3 mmol/L (3.6-5.0) H 04/16/20 19:29 Chloride 102.5 mmol/L (98-107) 04/16/20 19:29 Carbon Dioxide 20 mmol/L (22-30) L 04/16/20 19:29 Anion Gap 20 mmol/L 04/16/20 19:29 BUN 49 mg/dL (7-17) H 04/16/20 19:29 Creatinine 1.7 mg/dL (0.6-1.2) H 04/16/20 19:29 Estimated GFR 38 ml/min 04/16/20 19:29 BUN/Creatinine Ratio 29 % 04/16/20 19:29 Glucose 295 mg/dL (65-100) H 04/16/20 19:29 POC Glucose 243 mg/dL (70-105) H 04/16/20 19:31 Lactic Acid 1.10 mmol/L (0.7-2.0) 04/16/20 23:50 Calcium 10.1 mg/dL (8.4-10.2) 04/16/20 19:29 Magnesium 2.70 mg/dL (1.7-2.3) H 04/16/20 19:45 Ammonia 50.0 umol/L (25-60) 04/16/20 19:57 Total Creatine Kinase 303 units/L (30-135) H 04/16/20 19:45 CK-MB (CK-2) < 1.0 ng/mL (0.0-4.0) 04/16/20 19:45 CK-MB (CK-2) Rel Index 0.3 (0-4) 04/16/20 19:45 Troponin T 0.067 ng/mL (0.00-0.029) H 04/16/20 19: Triglycerides 171 mg/dL (2-149) H 04/16/20 19: Cholesterol 212 mg/dL (50-199) H 04/16/20 19: LDL Cholesterol Direct 147 mg/dL (50-130) H 04/16/20 19: HDL Cholesterol 35 mg/dL (40-59) L 04/16/20: Cholesterol/HDL Ratio 6.05 % 04/16/20: TSH 0.679 mlU/mL (0.270-4.200) 04/16/20: Free T4 0.94 ng/dL (0.76-1.46) 04/16/20: Plasma/Serum Alcohol < 0.01 % (0-0.07) 04/16/20:45 - Imaging and Cardiology EKG: report reviewed CT Scan - head: report reviewed (No acute findings) Imaging and Cardiology: - EKG Data -: EKG Interpreted by Ri EKG shows normal: sinus rhythm Rate: tachycardia (104 bpm) - EKG Data When compared to previous EKG there are: previous EKG unavailable Interpretation: nonspecific ST-T wave cliff - Radiology Data Radiology results: report reviewed (CT head, chest x-ray), image reviewed (CT head, chest x-ray) Chest [id number], no definite focal infiltrates. No pneumothorax IMPRESSION: 1. No acute cardiopulmonary disease 2. Cardiac enlargement Perez/IV: Voiding Method External Female Catheter IV Catheter Type [Left Peripheral IV Antecubital] Assessment and Plan Advance Directives: Yes (Full code) VTE prophylaxis?: Chemical Plan of care discussed with patient/family: Yes - Patient Problems (1) Acute encephalopathy Current Visit: Yes Status: Acute Plan to address problem: Sepsis is a high possibility Patient started on cefepime and vancomycin (2) Sepsis Current Visit: Yes Status: Acute Qualifiers: Severe sepsis shock status: without septic shock Plan to address problem: No source of infection identified. White count is high and patient has altered sensorium. IV cefepime and vancomycin started empirically. ID consult to be requested. (3) Elevated troponin Current Visit: Yes Status: Acute Plan to address problem: We will get the second and third troponins. Cardiology consult. Heparin was not started. (4) JOEL (acute kidney injury) Current Visit: Yes Status: Acute Plan to address problem: IV fluids for now We will get echocardiogram for ejection fraction (5) Hyperkalemia Current Visit: Yes Status: Acute Plan to address problem: Mild Treated (6) IDDM (insulin dependent diabetes mellitus) Current Visit: Yes Status: Chronic Plan to address problem: Continue Lantus and coverage Check hemoglobin A1c (7) Hyperlipidemia Current Visit: No Status: Chronic Qualifiers: Hyperlipidemia type: mixed hyperlipidemia Qualified Code(s): E78.2 - Mixed hyperlipidemia Plan to address problem: Continue statins (8) Hypertension Current Visit: Yes Status: Chronic Qualifiers: Hypertension type: essential hypertension Qualified Code(s): I10 - Essential (primary) hypertension Plan to address problem: Continue antihypertensives and adjust medications as necessary (9) GERD (gastroesophageal reflux disease) Current Visit: Yes Status: Chronic Qualifiers: Esophagitis presence: without esophagitis Qualified Code(s): K21.9 - Gastro-esophageal reflux disease without esophagitis Plan to address problem: Continue Protonix (10) Peripheral neuropathy Current Visit: Yes Status: Chronic Qualifiers: Peripheral neuropathy type: polyneuropathy, unspecified Qualified Code(s): G62.9 - Polyneuropathy, unspecified Plan to address problem: Continue Lyrica (11) Seizure disorder Current Visit: Yes Status: Chronic Plan to address problem: Continue Lamictal (12) DVT prophylaxis Current Visit: No Status: Acute
[2020-04-17] MEDS ORDERED: SODIUM CHLORIDE 0.9% 1000 ML 1,000 ML IV SCH (08:00)
[2020-04-17] MEDS ORDERED: ALBUTEROL 2.5 MG/3 ML NEBU IH PRN (08:00)
[2020-04-17] MEDS ORDERED: VANCOMYCIN PHARMACY TO DOSE IV SCH (08:00)
--- NOTE | 2020-04-17 08:08 | Progress Note ---
Assessment and Plan Assessment and plan: 54-year-old female with multiple medical problems including Peptic ulcer disease, Hypothyroidism, JANI, HLD, insulin-dependent diabetes, hypertension, and GERD, peripheral neuropathy and hyperlipidemia was found unresponsive and diaphoretic at home. In the ED the patient was feeling groggy and admits to shortness of breath and cough. Very when asked if she remembers how she ended up in the emergency room patient could not answer the question. Very poor historian. No fever or chills. Not known whether exposed to coronavirus. Early this year was treated for sepsis and encephalopathy. CXR: Unremarkable CT Head: IMPRESSION: There are stable postoperative changes involving frontal lobes with encephalomalacia and residual left parafalcine lesion as detailed above. Overall, this been no significant interval change from 11/27/2018. 04/17: Awaiting todays labs to evaluate renal function and obtain Pipe Stress Engineer. Cardiology consulted for Type 2 WI, wound care also consulted due to 5th right toe wound, will adjust Insulin for Blood sugar. (1) Acute encephalopathy Current Visit: Yes Status: Acute Plan to address problem: Sepsis is a high possibility Patient started on cefepime and vancomycin (2) Sepsis Current Visit: Yes Status: Acute Qualifiers: Severe sepsis shock status: without septic shock Plan to address problem: No source of infection identified. White count is high and patient has altered sensorium. IV cefepime and vancomycin started empirically. ID consult to be requested. (3) Elevated troponin- ?Type 2 Current Visit: Yes Status: Acute Plan to address problem: We will get the second and third troponins. Cardiology consult. Heparin was not started. (4) JOEL (acute kidney injury) Current Visit: Yes Status: Acute Plan to address problem: IV fluids for now We will get echocardiogram for ejection fraction (5) Hyperkalemia Current Visit: Yes Status: Acute Plan to address problem: Mild Treated (6) IDDM (insulin dependent diabetes mellitus) Current Visit: Yes Status: Chronic Plan to address problem: Continue Lantus and coverage Check hemoglobin A1c (7) Hyperlipidemia Current Visit: No Status: Chronic Qualifiers: Hyperlipidemia type: mixed hyperlipidemia Qualified Code(s): E78.2 - Mixed hyperlipidemia Plan to address problem: Continue statins (8) Hypertension Current Visit: Yes Status: Chronic Qualifiers: Hypertension type: essential hypertension Qualified Code(s): I10 - Essential (primary) hypertension Plan to address problem: Continue antihypertensives and adjust medications as necessary (9) GERD (gastroesophageal reflux disease) Current Visit: Yes Status: Chronic Qualifiers: Esophagitis presence: without esophagitis Qualified Code(s): K21.9 - Gastro-esophageal reflux disease without esophagitis Plan to address problem: Continue Protonix (10) Peripheral neuropathy Current Visit: Yes Status: Chronic Qualifiers: Peripheral neuropathy type: polyneuropathy, unspecified Qualified Code(s): G62.9 - Polyneuropathy, unspecified Plan to address problem: Continue Lyrica (11) Seizure disorder Current Visit: Yes Status: Chronic Plan to address problem: Continue Lamictal (12) DVT prophylaxis Current Visit: No Status: Acute History Interval history: Patient seen and examined, awake, answering questions with no acute distress. Hospitalist Physical - Physical exam Narrative exam: General appearance: Present: no acute distress, well-nourished - EENT Eyes: Present: PERRL ENT: hearing intact, clear oral mucosa - Neck Neck: Present: supple, normal ROM - Respiratory Respiratory effort: normal Respiratory: bilateral: CTA - Cardiovascular Rhythm: regular Heart Sounds: Present: S1 & S2. Absent: rub, click - Extremities Extremities: no ischemia (78), pulses intact, pulses symmetrical, No edema Peripheral Pulses: within normal limits - Abdominal General gastrointestinal: Present: soft, non-tender, non-distended, normal bowel sounds Female genitourinary: Present: normal - Rectal Rectal Exam: deferred - Integumentary Integumentary: Present: clear, warm, dry - Musculoskeletal Musculoskeletal: generalized weakness - Psychiatric Psychiatric: other (Lethargic) - Neurologic Neurologic: moves all extremities - Allied Health Allied health notes reviewed: nursing, case management - Constitutional Vitals: Temp Pulse Resp BP Pulse Ox 100.6 F H 121 H 25 H 98/54 95 04/17/20 05:10 04/17/20 05:10 04/17/20 01:00 04/17/20 05:10 04/17/20 01:00 General appearance: Present: no acute distress, well-nourished HEART Score - HEART Score Age: 45-65 Risk factors: > 3 risk factors or hx of atherosclerotic disease Troponin: Troponin T 0.067 ng/mL (0.00-0.029) H 04/16/20 19:29 Troponin: 1-3x normal limit - Critical Actions Critical Actions: 4-6 pts:12-16.6% risk of adverse cardiac event. Should be admitted Results - Labs CBC & Chem 7: 04/16/20 20:37 04/16/20 19:29 Labs: Laboratory Last Values WBC 20.6 K/mm3 (4.5-11.0) H 04/16/20 20:37 RBC 4.86 M/mm3 (3.65-5.03) 04/16/20 20:37 Hgb 11.4 gm/dl (10.1-14.3) 04/16/20 20:37 Hct 36.3 % (30.3-42.9) 04/16/20 20:37 MCV 75 fl (79-97) L 04/16/20 20:37 MCH 24 pg (28-32) L 04/16/20 20:37 MCHC 32 % (30-34) 04/16/20 20:37 RDW 15.6 % (13.2-15.2) H 04/16/20 20:37 Plt Count 470 K/mm3 (140-440) H 04/16/20 20:37 Lymph % (Auto) Die Maintenance 04/16/20 20:37 Major % (Auto) Die Maintenance 04/16/20 20:37 Eos % (Auto) Die Maintenance 04/16/20 20:37 Baso % (Auto) Die Maintenance 04/16/20 20:37 Lymph # (Auto) Die Maintenance 04/16/20 20:37 Major # (Auto) Die Maintenance 04/16/20 20:37 Eos # (Auto) Die Maintenance 04/16/20 20:37 Baso # (Auto) Die Maintenance 04/16/20 20:37 Add Manual Diff Complete 04/16/20 20:37 Total Counted 100 04/16/20 20:37 Seg Neutrophils % Die Maintenance 04/16/20 20:37 Seg Neuts % (Manual) 71.0 % (40.0-70.0) H 04/16/20 20:37 Band Neutrophils % 2.0 % 04/16/20 20:37 Lymphocytes % (Manual) 17.0 % (13.4-35.0) 04/16/20 20:37 Monocytes % (Manual) 10.0 % (0.0-7.3) H 04/16/20 20:37 Nucleated RBC % Not Reportable 04/16/20 20:37 Seg Neutrophils # Die Maintenance 04/16/20 20:37 Seg Neutrophils # Man 14.6 K/mm3 (1.8-7.7) H 04/16/20 20:37 Band Neutrophils # 0.4 K/mm3 04/16/20 20:37 Lymphocytes # (Manual) 3.5 K/mm3 (1.2-5.4) 04/16/20 20:37 Abs React Lymphs (Man) 0.0 K/mm3 04/16/20 20:37 Monocytes # (Manual) 2.1 K/mm3 (0.0-0.8) H 04/16/20 20:37 Eosinophils # (Manual) 0.0 K/mm3 (0.0-0.4) 04/16/20 20:37 Basophils # (Manual) 0.0 K/mm3 (0.0-0.1) 04/16/20 20:37 Metamyelocytes # 0.0 K/mm3 04/16/20 20:37 Myelocytes # 0.0 K/mm3 04/16/20 20:37 Promyelocytes # 0.0 K/mm3 04/16/20 20:37 Blast Cells # 0.0 K/mm3 04/16/20 20:37 WBC Morphology Not Reportable 04/16/20 20:37 Hypersegmented Neuts Not Reportable 04/16/20 20:37 Hyposegmented Neuts Not Reportable 04/16/20 20:37 Hypogranular Neuts Not Reportable 04/16/20 20:37 Smudge Cells Not Reportable 04/16/20 20:37 Toxic Granulation Not Reportable 04/16/20 20:37 Toxic Vacuolation Not Reportable 04/16/20 20:37 Dohle Bodies Not Reportable 04/16/20 20:37 Pelger-Huet Anomaly Not Reportable 04/16/20 20:37 Marcel Rods Not Reportable 04/16/20 20:37 Platelet Estimate Consistent w auto 04/16/20 20:37 Clumped Platelets Not Reportable 04/16/20 20:37 Plt Clumps, EDTA Not Reportable 04/16/20 20:37 Large Platelets Not Reportable 04/16/20 20:37 Giant Platelets Not Reportable 04/16/20 20:37 Platelet Satelliting Not Reportable 04/16/20 20:37 Plt Morphology Comment Not Reportable 04/16/20 20:37 RBC Morphology Not Reportable 04/16/20 20:37 Dimorphic RBCs Not Reportable 04/16/20 20:37 Polychromasia Not Reportable 04/16/20 20:37 Hypochromasia Not Reportable 04/16/20 20:37 Poikilocytosis Not Reportable 04/16/20 20:37 Anisocytosis 1+ 04/16/20 20:37 Microcytosis Not Reportable 04/16/20 20:37 Macrocytosis Not Reportable 04/16/20 20:37 Spherocytes Not Reportable 04/16/20 20:37 Pappenheimer Bodies Not Reportable 04/16/20 20:37 Sickle Cells Not Reportable 04/16/20 20:37 Target Cells Not Reportable 04/16/20 20:37 Tear Drop Cells Not Reportable 04/16/20 20:37 Ovalocytes Not Reportable 04/16/20 20:37 Helmet Cells Not Reportable 04/16/20 20:37 [place] Bodies Not Reportable 04/16/20 20:37 [place] Rings Not Reportable 04/16/20 20:37 [place] Cells Not Reportable 04/16/20 20:37 Bite Cells Not Reportable 04/16/20 20:37 Crenated Cell Not Reportable 04/16/20 20:37 Elliptocytes Not Reportable 04/16/20 20:37 Acanthocytes (Spur) Not Reportable 04/16/20 20:37 Rouleaux Not Reportable 04/16/20 20:37 Hemoglobin C Crystals Not Reportable 04/16/20 20:37 Schistocytes Not Reportable 04/16/20 20:37 Malaria parasites Not Reportable 04/16/20 20:37 Levi Bodies Not Reportable 04/16/20 20:37 Hem Pathologist Commnt No 04/16/20 20:37 PT 19.5 Sec. (12.2-14.9) H 04/16/20 19:29 INR 1.64 (0.87-1.13) H 04/16/20 19:29 APTT 43.3 Sec. (24.2-36.6) H 04/16/20 19:29 Sodium 137 mmol/L (137-145) 04/16/20 19:29 Potassium 5.3 mmol/L (3.6-5.0) H 04/16/20 19:29 Chloride 102.5 mmol/L (98-107) 04/16/20 19:29 Carbon Dioxide 20 mmol/L (22-30) L 04/16/20 19: Anion Gap 20 mmol/L 04/16/20 19:29 BUN 49 mg/dL (7-17) H 04/16/20 19:29 Creatinine 1.7 mg/dL (0.6-1.2) H 04/16/20 19:29 Estimated GFR 38 ml/min 04/16/20 19: BUN/Creatinine Ratio 29 % 04/16/20 19: Glucose 295 mg/dL (65-100) H 04/16/20 19: POC Glucose 243 mg/dL (70-105) H 04/16/20 19: Lactic Acid 1.10 mmol/L (0.7-2.0) 04/16/20 23:50 Calcium 10.1 mg/dL (8.4-10.2) 04/16/20 19:29 Magnesium 2.70 mg/dL (1.7-2.3) H 04/16/20 19:45 Ammonia 50.0 umol/L (25-60) 04/16/20 19:57 Total Creatine Kinase 303 units/L (30-135) H 04/16/20 19:45 CK-MB (CK-2) < 1.0 ng/mL (0.0-4.0) 04/16/20 19:45 CK-MB (CK-2) Rel Index 0.3 (0-4) 04/16/20 19:45 Troponin T 0.067 ng/mL (0.00-0.029) H 04/16/20 19:29 Triglycerides 171 mg/dL (2-149) H 04/16/20 19:29 Cholesterol 212 mg/dL (50-199) H 04/16/20 19:29 LDL Cholesterol Direct 147 mg/dL (50-130) H 04/16/20 19:29 HDL Cholesterol 35 mg/dL (40-59) L 04/16/20 19:29 Cholesterol/HDL Ratio 6.05 % 04/16/20 19:29 TSH 0.679 mlU/mL (0.270-4.200) 04/16/20 19:45 Free T4 0.94 ng/dL (0.76-1.46) 04/16/20 19:45 Plasma/Serum Alcohol < 0.01 % (0-0.07) 04/16/20 19:45 Perez/IV: Voiding Method External Female Catheter IV Catheter Type [Left Peripheral IV Antecubital] Active Medications - Current Medications Current Medications: Generic Name Dose Route Start Last Admin Trade Name Freq PRN Reason Stop Dose Admin Hydrocodone Bitart/Acetaminophen 1 each 04/17/20 07:33 Hydrocodone/Acetaminophen 5-325 Mg Tab PO Q4HR PRN PAIN Albuterol 2.5 mg 04/17/20 08:00 Albuterol 2.5 Mg/3 Ml Nebu IH Q4HRT PRN Shortness Of Breath Apixaban 5 mg 04/17/20 10:00 Apixaban 5 Mg Tab PO BID [facility] Protocol Atorvastatin Calcium 40 mg 04/17/20 10:00 Atorvastatin 40 Mg Tab PO QDAY [facility] Cholecalciferol 1,000,000 unit 04/17/20 10:00 Cholecalciferol (Vit D3) 1000 Unit (25 Mcg) Tab PO QDAY [facility] Heparin Sodium (Porcine) 5,000 unit 04/17/20 10:00 Heparin 5,000 Unit/1 Ml Vial SUB-Q Q12HR [facility] Hydrocortisone Acetate 10 mg 04/17/20 10:00 Hydrocortisone 10 Mg Tab PO BID [facility] Cefepime HCl 2 gm in 100 mls @ 200 mls/hr 04/17/20 08:00 Cefepime/Ns 2 Gm/100 Ml IV Q8H [facility] Protocol Calcium Gluconate 2,000 mg/ 120 mls @ 660 mls/hr 04/17/20 08:30 Sodium Chloride IV 04/17/20 08:40 ONCE ONE Sodium Chloride 1,000 mls @ 75 mls/hr 04/17/20 08:00 Nacl 0.9% 1000 Ml IV DIRECT [facility] Insulin Human Lispro 0 unit 04/17/20 11:30 Insulin Lispro 100 Unit/Ml Vial 3 Ml SUB-Q ACHS [facility] Protocol Lamotrigine 25 mg 04/17/20 10:00 Lamotrigine 25 Mg Tab PO BID [facility] Levothyroxine Sodium 50 mcg 04/17/20 10:00 Levothyroxine 50 Mcg Tab PO QAM [facility] Metoprolol Tartrate 50 mg 04/17/20 10:00 Metoprolol Tartrate 50 Mg Tab PO BID [facility] Miscellaneous Medication 40 mg 04/17/20 10:00 Atorvastatin Calcium PO QDAY [facility] Miscellaneous Medication 20 mg 04/17/20 10:00 Lasix Tab PO BID [facility] Miscellaneous Medication 150 mg 04/17/20 10:00 Pregabalin [Lyrica] PO BID [facility] Pantoprazole Sodium 40 mg 04/17/20 10:00 Pantoprazole 40 Mg Tab PO BID [facility]
[2020-04-17] MEDS ORDERED: CALCIUM GLUCONATE 2,000 MG in SODIUM CHLORIDE 0.9% 100 ML IV ONE (08:30)
[2020-04-17] MEDS ORDERED: VANCOMYCIN 2,000 MG in SODIUM CHLORIDE 0.9% 500 ML 500 ML IV ONE (09:00)
--- NOTE | 2020-04-17 09:07 | Consultation ---
History of Present Illness Consult date: 04/17/20 Consult reason: abnormal cardiac enzymes History of present illness: Patient is a 54-year-old admitted with change in mental status. Unfortunately patient unable to give any history. She is somnolent but arousable but again unable to provide any meaningful history. History documented from the chart. Patient apparently found by the family members were shortness of breath unresponsive and groggy. She was brought into the emergency room, fortunately vital signs were stable. But patient does not remember how she came into the hospital. From report there is no history of chest pain or shortness of breath. Currently being treated for sepsis noted to have elevated cardiac enzymes hence cardiology is being consulted. Review of her prior visits did not reveal any recent cardiac work-up. Past History Past Medical History: diabetes, hypertension, hyperlipidemia Social history: no significant social history Family history: no significant family history Medications and Allergies Allergies Allergy/AdvReac Type Severity Reaction Status Date / Time erythromycin base Allergy Itching Verified 11/26/18 06:03 [From Erythrocin] Penicillins Allergy Rash Verified 11/26/18 06:02 Home Medications Medication Instructions Recorded Confirmed Last Taken Type Atorvastatin Calcium 40 mg PO BID 11/26/18 05/17/19 11/25/18 08:00 History Cholecalciferol Vit D3 [Vitamin D3 1,000 1000units PO QDAY 11/26/18 05/17/19 11/25/18 08:00 History 1,000 UNIT TAB] HYDROcodone/APAP 5-325 [[place] 1 each PO Q4HR PRN 11/26/18 05/17/19 Unknown History 5-325 mg TAB] Hydrocortisone [Cortef TAB] 10 mg PO BID 11/26/18 05/17/19 Unknown History Insulin Glargine,Hum.rec.anlog 60 unit SQ QHS 11/26/18 05/17/19 Unknown History [Lantus Solostar] Insulin Glargine,Hum.rec.anlog See Protocol SUB-Q QACHS 11/26/18 05/17/19 Unknown History [Lantus Solostar] Lasix TAB 20 mg PO BID 11/26/18 05/17/19 Unknown History Levothyroxine [Synthroid] 50 mcg PO QAM 11/26/18 05/17/19 11/24/18 08:00 History Lispro Insulin [HumaLOG] See Protocol SUB-Q ACHS 11/26/18 05/17/19 11/25/18 History Metoprolol [Lopressor TAB] 50 mg PO BID 11/26/18 05/17/19 Unknown History Mometasone 0.1% (Nf) 0.1 units TP BID 11/26/18 05/17/19 Unknown History Pantoprazole [Protonix TAB] 40 mg PO BID 11/26/18 05/17/19 Unknown History Petrolatum,White [Vaseline White 5 gm TP BID 11/26/18 05/17/19 Unknown History Petroleum] Pregabalin [Lyrica] 150 mg PO BID 11/26/18 05/17/19 11/25/18 08:00 History lamoTRIgine [LaMICtal] 25 mg PO BID 11/26/18 05/17/19 Unknown History ALBUTEROL NEB's [Proventil 0.083% 2.5 mg IH Q4HRT PRN nebu 05/20/19 Unknown Rx NEBS] Apixaban [Eliquis] 5 mg PO BID tablet 05/20/19 Unknown Rx AtorvaSTATin [Lipitor] 40 mg PO QDAY tablet 05/20/19 Unknown Rx Active Meds: Active Medications Hydrocodone Bitart/Acetaminophen (Hydrocodone/Acetaminophen 5-325 Mg Tab) 1 each PO Q4HR PRN PRN Reason: PAIN Albuterol (Albuterol 2.5 Mg/3 Ml Nebu) 2.5 mg IH Q4HRT PRN PRN Reason: Shortness Of Breath Apixaban (Apixaban 5 Mg Tab) 5 mg PO BID [facility]; Protocol Atorvastatin Calcium (Atorvastatin 40 Mg Tab) 40 mg PO QDAY [facility] Cholecalciferol (Cholecalciferol (Vit D3) 1000 Unit (25 Mcg) Tab) 1,000,000 unit PO QDAY [facility] Heparin Sodium (Porcine) (Heparin 5,000 Unit/1 Ml Vial) 5,000 unit SUB-Q Q12HR [facility] Hydrocortisone Acetate (Hydrocortisone 10 Mg Tab) 10 mg PO BID [facility] Cefepime HCl (Cefepime/Ns 2 Gm/100 Ml) 2 gm in 100 mls @ 200 mls/hr IV Q8H [facility]; Protocol Sodium Chloride (Nacl 0.9% 1000 Ml) 1,000 mls @ 75 mls/hr IV DIRECT [facility] Vancomycin HCl 2,000 mg/ (Sodium Chloride) 540 mls @ 250 mls/hr IV ONCE ONE Stop: 04/17/20 11:09 Insulin Glargine (Insulin Glargine 100 Units/Ml) 20 units SUB-Q QHS [facility] Insulin Human Lispro (Insulin Lispro 100 Unit/Ml Vial 3 Ml) 0 unit SUB-Q ACHS [facility]; Protocol Lamotrigine (Lamotrigine 25 Mg Tab) 25 mg PO BID [facility] Levothyroxine Sodium (Levothyroxine 50 Mcg Tab) 50 mcg PO DAILY@0600 [facility] Metoprolol Tartrate (Metoprolol Tartrate 50 Mg Tab) 50 mg PO BID [facility] Miscellaneous Medication (Atorvastatin Calcium) 40 mg PO QDAY [facility] Miscellaneous Medication (Lasix Tab) 20 mg PO BID [facility] Miscellaneous Medication (Pregabalin [Lyrica]) 150 mg PO BID [facility] Pantoprazole Sodium (Pantoprazole 40 Mg Tab) 40 mg PO BID [facility] Review of Systems ROS unobtainable: due to mental status Physical Examination Vital Signs Temp Pulse BP Pulse Ox 100.1 F H 103 H 98/54 92 04/16/20 19:34 04/16/20 19:34 04/16/20 19:34 04/16/20 19:34 General appearance: obese HEENT: Positive: Normocephaly Cardiac: Positive: Reg Rate and Rhythm Lungs: Positive: clear to auscultation Neuro: Positive: Other (Patient somnolent unable to evaluate. However moves all 4 extremities) Abdomen: Positive: Unremarkable Female genitourinary: deferred Extremities: Present: normal Results 04/16/20 20:37 04/16/20 19:29 Cardiac Enzymes 04/16/20 Range/Units 19:45 CK-MB (CK-2) < 1.0 (0.0-4.0) ng/mL Coagulation 04/16/20 Range/Units 19:29 PT 19.5 H (12.2-14.9) Sec. INR 1.64 H (0.87-1.13) APTT 43.3 H (24.2-36.6) Sec. Lipids 04/16/20 Range/Units 19:29 Triglycerides 171 H (2-149) mg/dL Cholesterol 212 H (50-199) mg/dL HDL Cholesterol 35 L (40-59) mg/dL Cholesterol/HDL Ratio 6.05 % CBC 04/16/20 Range/Units 20:37 WBC 20.6 H (4.5-11.0) K/mm3 RBC 4.86 (3.65-5.03) M/mm3 Hgb 11.4 (10.1-14.3) gm/dl Hct 36.3 (30.3-42.9) % Plt Count 470 H (140-440) K/mm3 Lymph # (Auto) Facsimile Machine Operator [place] # (Auto) Facsimile Machine Operator Eos # (Auto) Facsimile Machine Operator Baso # (Auto) Facsimile Machine Operator Comprehensive Metabolic Panel 04/16/20 Range/Units 19:29 Sodium 137 (137-145) mmol/L Potassium 5.3 H (3.6-5.0) mmol/L Chloride 102.5 (98-107) mmol/L Carbon Dioxide 20 L (22-30) mmol/L BUN 49 H (7-17) mg/dL Creatinine 1.7 H (0.6-1.2) mg/dL Glucose 295 H (65-100) mg/dL Calcium 10.1 (8.4-10.2) mg/dL EKG interpretations - Telemetry EKG Rhythm: Sinus Rhythm (No acute ST-T wave changes noted) Assessment and Plan Impression 1. Borderline elevated troponin in the setting of sepsis and elevated renal function likely represents non-HI troponin. However cannot rule out type II HI 2. SA jackie block on telemetry 3. Leukocytosis 4. Acute renal failure 5. Change in mental status is encephalopathy secondary to sepsis. 6. Diabetes mellitus 7. Obesity Plan 1. Continue aspirin and beta-blockers for now, no need for heparin 2. If patient has significant sinus pauses/SA jackie block will decrease the dose of beta-blockers 3. 2D echo to evaluate LVEF and wall motion abnormality 4. Patient is on Eliquis will reevaluate the need for continuing Eliquis 5. Rest per primary team
[2020-04-17] MEDS: CEFEPIME/NS 2 GM/100 ML 2 GM/100 ML BAG IV SCH ×2 (09:38→17:15)
[2020-04-17] MEDS: lamoTRIgine 25 MG TAB PO SCH (09:41)
[2020-04-17] MEDS: METOPROLOL TARTRATE 50 MG TAB PO SCH (09:41)
[2020-04-17] MEDS: HYDROCORTISONE 10 MG TAB PO SCH (09:41)
[2020-04-17] MEDS: LEVOTHYROXINE 50 MCG TAB PO SCH (09:42)
[2020-04-17] MEDS: PREGABALIN 75 MG CAP PO SCH (09:42)
[2020-04-17] MEDS: PANTOPRAZOLE 40 MG TAB PO SCH (09:42)
[2020-04-17] MEDS ORDERED: NON-FORMULARY EACH (Pregabalin [Lyrica] 150 MG Capsule) PO SCH (10:00)
[2020-04-17] MEDS ORDERED: NON-FORMULARY EACH (Lasix Tab 20 MG) PO SCH (10:00)
[2020-04-17] MEDS ORDERED: HEPARIN 5,000 UNIT/1 ML VIAL SUB-Q SCH (10:00)
[2020-04-17] MEDS ORDERED: CHOLECALCIFEROL (VIT D3) 1000 UNIT (25 mcg) TAB PO SCH (10:00)
[2020-04-17] MEDS ORDERED: ATORVASTATIN CALCIUM PO SCH (10:00)
[2020-04-17] MEDS ORDERED: FUROSEMIDE 20 MG TAB PO SCH (10:00)
[2020-04-17] MEDS ORDERED: HYDROcodone/ACETAMINOPHEN 5-325 MG TAB PO PRN (10:00)
[2020-04-17 11:09] LABS: Hemoglobin 10.8 gm/dl (10.1-14.3); Mean Corpuscular HGB Conc 30 % (30-34); Mean Corpuscular Volume 75 fl (79-97); Platelet Count 437 K/mm3 (140-440); Red Blood Count 4.82 M/mm3 (3.65-5.03); Red Cell Distribution Width 15.9 % (13.2-15.2)
[2020-04-17 11:22] LABS: BUN/Creatinine Ratio 44; Blood Urea Nitrogen 44 mg/dL (7-17); Calcium 10.3 mg/dL (8.4-10.2); Hemolysis Index 0
[2020-04-17 11:32] LABS: C-Reactive Protein 13.9 mg/dL (0.00-1.30)
[2020-04-17 11:53] LABS: Band Neutrophils # (Manual) 0.2 K/mm3; Total Cells Counted 100
[2020-04-17 11:54] LABS: Anisocytosis 1+; Large Platelets 1+; Platelet Estimate Consistent w Auto
[2020-04-17] MEDS: INSULIN LISPRO 100 UNIT/ML VIAL 3 mL SUB-Q SCH ×3 (13:14→22:08)
--- NOTE | 2020-04-17 15:22 | Consultation ---
History of Present Illness - Reason for Consult Consult date: 04/17/20 acute renal failure, hyperkalemia - History of Present Illness The patient is a 54 YO female with history significant for Morbid Obesity, DM type 2, Hypertension, HLD, Seizures, Meningioma s/p resection, Sarcoidosis, Hypothyroidism, JANI, PUD and bed bound status who presented to [facility] ED 04/16 for evaluation of AMS. Patient was not able to provide any history and there was no family member at the bedside. She was found unresponsive and diaphoretic at home. In the ED the patient was feeling groggy and admitted to shortness of breath and cough. No fever or chills. Not known whether exposed to coronavirus. Labs significant for Creatinine level 1.7, K 5.3 and Troponin 0.025. Nephrology was consulted for further evaluation. Past History Past Medical History: diabetes, hypertension, hyperlipidemia Social history: no significant social history Family history: no significant family history Medications and Allergies Allergies Allergy/AdvReac Type Severity Reaction Status Date / Time erythromycin base Allergy Itching Verified 11/26/18 06:03 [From Erythrocin] Penicillins Allergy Rash Verified 11/26/18 06:02 Home Medications Medication Instructions Recorded Confirmed Last Taken Type Atorvastatin Calcium 40 mg PO BID 11/26/18 05/17/19 11/25/18 08:00 History Cholecalciferol Vit D3 [Vitamin D3 1,000 1000units PO QDAY 11/26/18 05/17/19 11/25/18 08:00 History 1,000 UNIT TAB] HYDROcodone/APAP 5-325 [[place] 1 each PO Q4HR PRN 11/26/18 05/17/19 Unknown History 5-325 mg TAB] Hydrocortisone [Cortef TAB] 10 mg PO BID 11/26/18 05/17/19 Unknown History Insulin Glargine,Hum.rec.anlog 60 unit SQ QHS 11/26/18 05/17/19 Unknown History [Lantus Solostar] Insulin Glargine,Hum.rec.anlog See Protocol SUB-Q QACHS 11/26/18 05/17/19 Unknown History [Lantus Solostar] Lasix TAB 20 mg PO BID 11/26/18 05/17/19 Unknown History Levothyroxine [Synthroid] 50 mcg PO QAM 11/26/18 05/17/19 11/24/18 08:00 History Lispro Insulin [HumaLOG] See Protocol SUB-Q ACHS 11/26/18 05/17/19 11/25/18 History Metoprolol [Lopressor TAB] 50 mg PO BID 11/26/18 05/17/19 Unknown History Mometasone 0.1% (Nf) 0.1 units TP BID 11/26/18 05/17/19 Unknown History Pantoprazole [Protonix TAB] 40 mg PO BID 11/26/18 05/17/19 Unknown History Petrolatum,White [Vaseline White 5 gm TP BID 11/26/18 05/17/19 Unknown History Petroleum] Pregabalin [Lyrica] 150 mg PO BID 11/26/18 05/17/19 11/25/18 08:00 History lamoTRIgine [LaMICtal] 25 mg PO BID 11/26/18 05/17/19 Unknown History ALBUTEROL NEB's [Proventil 0.083% 2.5 mg IH Q4HRT PRN nebu 05/20/19 Unknown Rx NEBS] Apixaban [Eliquis] 5 mg PO BID tablet 05/20/19 Unknown Rx AtorvaSTATin [Lipitor] 40 mg PO QDAY tablet 05/20/19 Unknown Rx Active Meds: Active Medications Hydrocodone Bitart/Acetaminophen (Hydrocodone/Acetaminophen 5-325 Mg Tab) 1 each PO Q4HR PRN PRN Reason: PAIN Albuterol (Albuterol 2.5 Mg/3 Ml Nebu) 2.5 mg IH Q4HRT PRN PRN Reason: Shortness Of Breath Apixaban (Apixaban 5 Mg Tab) 5 mg PO BID [facility]; Protocol Atorvastatin Calcium (Atorvastatin 40 Mg Tab) 40 mg PO QDAY [facility] Last Admin: 04/17/20 09:41 Dose: Not Given Documented by: Atorvastatin Calcium (Atorvastatin 40 Mg Tab) 40 mg PO QHS [facility] Cholecalciferol (Cholecalciferol (Vit D3) 1000 Unit (25 Mcg) Tab) 1,000 unit PO DAILY [facility] Furosemide (Furosemide 20 Mg Tab) 20 mg PO 0600,1800 [facility] Last Admin: 04/17/20 09:41 Dose: Not Given Documented by: Hydrocortisone Acetate (Hydrocortisone 10 Mg Tab) 10 mg PO BID [facility] Last Admin: 04/17/20 09:41 Dose: Not Given Documented by: Cefepime HCl (Cefepime/Ns 2 Gm/100 Ml) 2 gm in 100 mls @ 200 mls/hr IV Q8H [facility]; Protocol Last Admin: 04/17/20 09:38 Dose: 200 mls/hr Documented by: Sodium Chloride (Nacl 0.9% 1000 Ml) 1,000 mls @ 75 mls/hr IV DIRECT [facility] Last Admin: 04/17/20 09:38 Dose: 75 mls/hr Documented by: Vancomycin HCl 1,750 mg/ (Sodium Chloride) 535 mls @ 333.333 mls/hr IV Q12H [facility] Insulin Glargine (Insulin Glargine 100 Units/Ml) 20 units SUB-Q QHS [facility] Insulin Human Lispro (Insulin Lispro 100 Unit/Ml Vial 3 Ml) 0 unit SUB-Q ACHS [facility]; Protocol Last Admin: 04/17/20 13:14 Dose: Not Given Documented by: Lamotrigine (Lamotrigine 25 Mg Tab) 25 mg PO BID [facility] Last Admin: 04/17/20 09:41 Dose: Not Given Documented by: Levothyroxine Sodium (Levothyroxine 50 Mcg Tab) 50 mcg PO DAILY@0600 [facility] Last Admin: 04/17/20 09:42 Dose: Not Given Documented by: Metoprolol Tartrate (Metoprolol Tartrate 50 Mg Tab) 50 mg PO BID [facility] Last Admin: 04/17/20 09:41 Dose: Not Given Documented by: Pantoprazole Sodium (Pantoprazole 40 Mg Tab) 40 mg PO BID [facility] Last Admin: 04/17/20 09:42 Dose: Not Given Documented by: Pregabalin (Pregabalin 75 Mg Cap) 150 mg PO BID [facility] Last Admin: 04/17/20 09:42 Dose: Not Given Documented by: Review of Systems ROS unobtainable: due to mental status Exam - Vital Signs Vital signs: Vital Signs Temp Pulse BP Pulse Ox 100.1 F H 103 H 98/54 92 04/16/20 19:34 04/16/20 19:34 04/16/20 19:34 04/16/20 19:34 Results - Lab Results 04/17/20 10:38 04/17/20 10:38 Most recent lab results Calcium 10.3 mg/dL (8.4-10.2) H 04/17/20 10:38 Magnesium 2.70 mg/dL (1.7-2.3) H 04/16/20 19:45 Assessment and Plan 1. Acute kidney injury: Vasomotor JOEL in the setting of hypotension. Urine studies ordered. Continue IV fluids. Monitor renal function. Creatinine level is improving. Avoid nephrotoxic agents. Meds dosage based on GFR. 2. FEN: Metabolic acidosis, continue IV fluids. Hyperkalemia, Kayexalate ordered. Monitor lytes. 3. Acute metabolic encephalopathy, POA: 4. Sepsis: No source of infection identified. On IV Cefepime and Vancomycin. ID consulted. 5. Elevated troponin: Seen by Cardiology. 6. DM Type 2. 7. H/o Seizures. 8. H/o Meningioma resection. 9. Sleep apnea. Subjective: Patient was seen and examined at the bedside. Examination: General appearance: well-developed, well-nourished, appears stated age, obese, no distress HEENT: ATNC, KOURTNEY, scalp surgical scar Neck: Trachea midline Respiratory: Clear to Ascultation Cardiology: regular, S1S2, no murmur Abdomen: soft, normoactive bowel sounds, not tender Integumentary: no obvious, rash Neurologic: only opens eyes, non-verbal Ext: trace edema of both LEs noted
[2020-04-17] MEDS ORDERED: SODIUM POLYSTYRENE 15 GM/60 ML ORAL LIQD PR ONE (16:23)
[2020-04-17] MEDS: APIXABAN 5 MG TAB PO SCH (17:14)
[2020-04-17] MEDS: CHOLECALCIFEROL (VIT D3) 1000 UNIT (25 mcg) TAB PO SCH (17:14)
[2020-04-17] MEDS ORDERED: NON-FORMULARY EACH (Insulin Glargine,Hum.Rec.Anlog [Lantus Solostar] 100 UNIT/ML Insuln.Pe SQ SCH (22:00)
[2020-04-17] MEDS: VANCOMYCIN 1,750 MG in SODIUM CHLORIDE 0.9% 500 ML 500 ML IV SCH (23:30)
[2020-04-17] MEDS ORDERED: ACETAMINOPHEN 650 MG RECT SUPP PR PRN (23:57)
[2020-04-18] MEDS: APIXABAN 5 MG TAB PO SCH ×3 (00:46→23:54)
[2020-04-18] MEDS: HYDROCORTISONE 10 MG TAB PO SCH ×3 (00:46→23:55)
[2020-04-18] MEDS: METOPROLOL TARTRATE 50 MG TAB PO SCH ×3 (00:47→23:56)
[2020-04-18] MEDS: INSULIN GLARGINE 100 UNITS/ML SUB-Q SCH ×2 (00:47→23:57)
[2020-04-18] MEDS: lamoTRIgine 25 MG TAB PO SCH ×3 (00:47→23:55)
[2020-04-18] MEDS: PANTOPRAZOLE 40 MG TAB PO SCH ×3 (00:48→23:55)
[2020-04-18] MEDS: PREGABALIN 75 MG CAP PO SCH ×3 (00:48→23:55)
[2020-04-18] MEDS: CEFEPIME/NS 2 GM/100 ML 2 GM/100 ML BAG IV SCH ×2 (01:05→18:01)
[2020-04-18] MEDS: LEVOTHYROXINE 50 MCG TAB PO SCH (05:25)
[2020-04-18 06:10] LABS: Hematocrit 33.3 % (30.3-42.9); Hemoglobin 10.3 gm/dl (10.1-14.3); Mean Corpuscular HGB Conc 31 % (30-34); Mean Corpuscular Volume 76 fl (79-97); Platelet Count 396 K/mm3 (140-440); Red Cell Distribution Width 15.9 % (13.2-15.2)
[2020-04-18 06:12] LABS: Basophils % (Auto) 0.6 % (0.0-1.8); Lymphocytes % (Auto) 9.8 % (13.4-35.0); Monocytes % (Auto) 12.9 % (0.0-7.3)
[2020-04-18 06:13] LABS: Basophils # (Auto) 0.1 K/mm3 (0.0-0.1); Eosinophils # (Auto) 0.2 K/mm3 (0.0-0.4); Lymphocytes # (Auto) 1.6 K/mm3 (1.2-5.4); Monocytes # (Auto) 2.1 K/mm3 (0.0-0.8)
[2020-04-18 06:20] LABS: Blood Urea Nitrogen 31 mg/dL (7-17); Calcium 9.9 mg/dL (8.4-10.2); Hemolysis Index 0
[2020-04-18 06:41] LABS: BUN/Creatinine Ratio 52
--- NOTE | 2020-04-18 08:29 | Progress Note ---
Assessment and Plan Impression 1. Borderline elevated troponin in the setting of sepsis and elevated renal function likely represents non-IA troponin. 2. SA jackie block on telemetry on admission. No further recurrence of bradycardia arrhythmia or SA jackie block 3. Leukocytosis improving. 4. Acute renal failure improving 5. Change in mental status is encephalopathy secondary to sepsis. Significantly improved since ablation 6. Diabetes mellitus 7. Hyperkalemia etiology unclear. Patient is not on any JOSSELIN inhibitor or ARB. Currently being treated with Kayexalate 8. Obesity Plan 1. Continue aspirin, statin and beta-blockers 2. If patient has significant sinus pauses/SA jackie block will decrease the dose of beta-blockers 3. 2D echo to evaluate LVEF and wall motion abnormality 4. Patient is on Eliquis will reevaluate the need for continuing Eliquis 5. Rest per primary team 6. Consider ischemia evaluation prior to discharge due to multiple risk factors Subjective Date of service: 04/18/20 Principal diagnosis: Elevated cardiac enzymes Interval history: Patient much more alert today. No specific symptoms. Objective Vital Signs Temp Pulse Pulse Pulse Pulse Resp BP 04/18/20 04:15 98.0 F 117 H 18 104/55 04/18/20 02:00 117 H 04/18/20 00:47 123 H 115/59 04/17/20 23:02 100.3 F H 124 H 36 H 117/55 04/17/20 22:00 124 H 124 H 124 H 24 04/17/20 19:58 100.3 F H 123 H 24 115/59 04/17/20 18:00 122 H 04/17/20 16:59 99.0 F 121 H 20 98/52 04/17/20 12:16 99.2 F 121 H 20 103/49 04/17/20 10:00 124 H 112 H 112 H 112 H 24 Pulse Ox 04/18/20 04:15 87 04/18/20 02:00 04/18/20 00:47 04/17/20 23:02 99 04/17/20 22:00 04/17/20 19:58 96 04/17/20 18:00 04/17/20 16:59 96 04/17/20 12:16 98 04/17/20 10:00 - Physical Examination General: Other (Moderately obese) HEENT: Positive: Normocephaly Neck: Positive: Other (No significant abnormality noted) Cardiac: Positive: Reg Rate and Rhythm Lungs: Positive: clear to auscultation Neuro: Positive: Grossly Intact, Other (Patient somnolent unable to evaluate. However moves all 4 extremities) Abdomen: Positive: Unremarkable Extremities: Present: normal - Labs and Meds Cardiac Enzymes 04/17/20 Range/Units 10:38 Lactate Dehydrogenase 246 H (91-180) units/L CBC 04/17/20 04/18/20 Range/Units 10:38 05:23 WBC 18.0 H 16.6 H (4.5-11.0) K/mm3 RBC 4.82 4.40 (3.65-5.03) M/mm3 Hgb 10.8 10.3 (10.1-14.3) gm/dl Hct 36.0 33.3 (30.3-42.9) % Plt Count 437 396 (140-440) K/mm3 Lymph # (Auto) 1.6 (1.2-5.4) K/mm3 [place] # (Auto) 2.1 H (0.0-0.8) K/mm3 Eos # (Auto) 0.2 (0.0-0.4) K/mm3 Baso # (Auto) 0.1 (0.0-0.1) K/mm3 Comprehensive Metabolic Panel 04/17/20 04/17/20 04/18/20 Range/Units 10:38 10:38 05:23 Sodium 141 148 H (137-145) mmol/L Potassium 5.2 H 5.5 H (3.6-5.0) mmol/L Chloride 107.3 H 114.3 H (98-107) mmol/L Carbon Dioxide 21 L 19 L (22-30) mmol/L BUN 44 H 31 H (7-17) mg/dL Creatinine 1.0 0.6 (0.6-1.2) mg/dL Glucose 172 H 167 H 201 H (65-100) mg/dL Calcium 10.3 H 9.9 (8.4-10.2) mg/dL - Imaging and Cardiology EKG: report reviewed
[2020-04-18] MEDS ORDERED: VANCOMYCIN 2,000 MG in SODIUM CHLORIDE 0.9% 500 ML 500 ML IV SCH (10:00)
[2020-04-18] MEDS: SODIUM POLYSTYRENE 15 GM/60 ML ORAL LIQD PO SCH (11:25)
[2020-04-18] MEDS: INSULIN LISPRO 100 UNIT/ML VIAL 3 mL SUB-Q SCH ×4 (11:25→23:57)
[2020-04-18] MEDS: CHOLECALCIFEROL (VIT D3) 1000 UNIT (25 mcg) TAB PO SCH (11:26)
[2020-04-18] MEDS: dilTIAZem/D5W 100 MG/100 ML BAG IV SCH (11:35)
--- NOTE | 2020-04-18 13:11 | Progress Note ---
Assessment and Plan 1. Acute kidney injury: Vasomotor JOEL in the setting of hypotension. Urine studies ordered. Monitor renal function. Creatinine level is better. Avoid nephrotoxic agents. Meds dosage based on GFR. 2. FEN: Metabolic acidosis, monitor. Hyperkalemia, s/p kayexalate, monitor. Hypernatremia, encourage PO fluids, monitor. Monitor lytes. 3. Acute metabolic encephalopathy, POA: 4. Sepsis: On IV Cefepime and Vancomycin. ID consulted. 5. Elevated troponin: Seen by Cardiology. 6. DM Type 2. 7. H/o Seizures. 8. H/o Meningioma resection. 9. Sleep apnea. Subjective: Patient was seen and examined at the bedside. Examination: General appearance: well-developed, well-nourished, appears stated age, obese, no distress HEENT: ATNC, KOURTNEY, scalp surgical scar Neck: Trachea midline Respiratory: Clear to Auscultation Cardiology: regular, S1S2, no murmur Abdomen: soft, normoactive bowel sounds, not tender Integumentary: no obvious, rash Neurologic: alert, minimal extremity movements, able to tell her name Ext: trace edema of both LEs noted Subjective Date of service: 04/18/20 Principal diagnosis: Elevated cardiac enzymes Objective - Vital Signs Vital signs: Vital Signs - 12hr 04/18/20 04/18/20 04/18/20 02:00 04:15 07:36 Temperature 98.0 F 99.2 F Pulse Rate 117 H 117 H 111 H Respiratory 18 18 Rate Blood Pressure 104/55 111/60 O2 Sat by Pulse 87 92 Oximetry 04/18/20 04/18/20 09:30 11:40 Temperature 98.9 F Pulse Rate 114 H Respiratory 18 Rate Blood Pressure 118/45 O2 Sat by Pulse 94 96 Oximetry - Lab 04/18/20 05:23 04/18/20 05:23 Most recent lab results Calcium 9.9 mg/dL (8.4-10.2) 04/18/20 05:23 Magnesium 2.70 mg/dL (1.7-2.3) H 04/16/20 19:45 Medications & Allergies - Medications Allergies/Adverse Reactions: Allergies erythromycin base [From Erythrocin] Allergy (Verified 11/26/18 06:03) Itching Penicillins Allergy (Verified 11/26/18 06:02) Rash Home Medications: Home Medications Medication Instructions Recorded Confirmed Last Taken Type Atorvastatin Calcium 40 mg PO BID 11/26/18 04/17/20 11/25/18 08:00 History Cholecalciferol Vit D3 [Vitamin D3 1,000 1000units PO QDAY 11/26/18 04/17/20 11/25/18 08:00 History 1,000 UNIT TAB] HYDROcodone/APAP 5-325 [[place] 1 each PO Q4HR PRN 11/26/18 04/17/20 Unknown History 5-325 mg TAB] Hydrocortisone [Cortef TAB] 10 mg PO BID 11/26/18 04/17/20 Unknown History Insulin Glargine,Hum.rec.anlog 60 unit SQ QHS 11/26/18 04/17/20 Unknown History [Lantus Solostar] Insulin Glargine,Hum.rec.anlog See Protocol SUB-Q QACHS 11/26/18 04/17/20 Unknown History [Lantus Solostar] Lasix TAB 20 mg PO BID 11/26/18 04/17/20 Unknown History Levothyroxine [Synthroid] 50 mcg PO QAM 11/26/18 04/17/20 11/24/18 08:00 History Lispro Insulin [HumaLOG] See Protocol SUB-Q ACHS 11/26/18 04/17/20 11/25/18 History Metoprolol [Lopressor TAB] 50 mg PO BID 11/26/18 04/17/20 Unknown History Mometasone 0.1% (Nf) 0.1 units TP BID 11/26/18 04/17/20 Unknown History Pantoprazole [Protonix TAB] 40 mg PO BID 11/26/18 04/17/20 Unknown History Petrolatum,White [Vaseline White 5 gm TP BID 11/26/18 04/17/20 Unknown History Petroleum] Pregabalin [Lyrica] 150 mg PO BID 11/26/18 04/17/20 11/25/18 08:00 History lamoTRIgine [LaMICtal] 25 mg PO BID 11/26/18 04/17/20 Unknown History ALBUTEROL NEB's [Proventil 0.083% 2.5 mg IH Q4HRT PRN nebu 05/20/19 04/17/20 Unknown Rx NEBS] Apixaban [Eliquis] 5 mg PO BID tablet 05/20/19 04/17/20 Unknown Rx AtorvaSTATin [Lipitor] 40 mg PO QDAY tablet 05/20/19 04/17/20 Unknown Rx Active Medications: Generic Name Dose Route Start Last Admin Trade Name Freq PRN Reason Stop Dose Admin Acetaminophen 650 mg 04/17/20 23:57 04/18/20 01:04 Acetaminophen 650 Mg Rect Supp SD 650 mg Q6H PRN Administration Pain, Mild (1-3) Hydrocodone Bitart/Acetaminophen 1 each 04/17/20 10:00 Hydrocodone/Acetaminophen 5-325 Mg Tab PO Q4HR PRN PAIN Albuterol 2.5 mg 04/17/20 08:00 Albuterol 2.5 Mg/3 Ml Nebu IH Q4HRT PRN Shortness Of Breath Apixaban 5 mg 04/17/20 12:30 04/18/20 11:26 Apixaban 5 Mg Tab PO 5 mg BID [facility] Administration Protocol Atorvastatin Calcium 40 mg 04/17/20 22:00 04/18/20 00:47 Atorvastatin 40 Mg Tab PO Not Given QHS [facility] Cholecalciferol 1,000 unit 04/17/20 14:00 04/18/20 11:26 Cholecalciferol (Vit D3) 1000 Unit (25 Mcg) Tab PO 1,000 unit DAILY [facility] Administration Hydrocortisone Acetate 10 mg 04/17/20 10:00 04/18/20 11:26 Hydrocortisone 10 Mg Tab PO 10 mg BID [facility] Administration Cefepime HCl 2 gm in 100 mls @ 200 mls/hr 04/17/20 10:00 04/18/20 01:05 Cefepime/Ns 2 Gm/100 Ml IV 200 mls/hr Q8H [facility] Administration Protocol Sodium Chloride 1,000 mls @ 75 mls/hr 04/17/20 08:00 04/17/20 09:38 Nacl 0.9% 1000 Ml IV 75 mls/hr DIRECT [facility] Administration Vancomycin HCl 1,750 mg/ 535 mls @ 333.333 mls/hr 04/17/20 22:00 04/17/20 23:30 Sodium Chloride IV 333.333 mls/hr Q12H [facility] Administration Diltiazem HCl 100 mg in 100 mls @ 5 mls/hr 04/18/20 12:00 04/18/20 11:35 Cardizem/D5w 100mg/100ml IV 5 mg/hr TITR [facility] 5 mls/hr Administration Protocol 5 MG/HR Insulin Glargine 20 units 04/17/20 22:00 04/18/20 00:47 Insulin Glargine 100 Units/Ml SUB-Q Not Given QHS [facility] Insulin Human Lispro 0 unit 04/17/20 11:30 04/18/20 11:25 Insulin Lispro 100 Unit/Ml Vial 3 Ml SUB-Q Not Given ACHS [facility] Protocol Lamotrigine 25 mg 04/17/20 10:00 04/18/20 11:35 Lamotrigine 25 Mg Tab PO 25 mg BID [facility] Administration Levothyroxine Sodium 50 mcg 04/17/20 10:00 04/18/20 05:25 Levothyroxine 50 Mcg Tab PO Not Given DAILY@0600 [facility] Metoprolol Tartrate 50 mg 04/17/20 10:00 04/18/20 11:26 Metoprolol Tartrate 50 Mg Tab PO 50 mg BID [facility] Administration Pantoprazole Sodium 40 mg 04/17/20 10:00 04/18/20 11:26 Pantoprazole 40 Mg Tab PO 40 mg BID [facility] Administration Pregabalin 150 mg 04/17/20 10:00 04/18/20 11:26 Pregabalin 75 Mg Cap PO 150 mg BID [facility] Administration Sodium Polystyrene Sulfonate 60 gm 04/18/20 10:00 04/18/20 11:25 Sodium Polystyrene 15 Gm/60 Ml Oral Liqd PO 04/18/20 22:01 60 gm BID [facility] Administration
--- NOTE | 2020-04-18 14:10 | Progress Note ---
Assessment and Plan Assessment and plan: 54-year-old female with multiple medical problems including Peptic ulcer disease, Hypothyroidism, JANI, HLD, insulin-dependent diabetes, hypertension, and GERD, peripheral neuropathy and hyperlipidemia was found unresponsive and diaphoretic at home. In the ED the patient was feeling groggy and admits to shortness of breath and cough. Very when asked if she remembers how she ended up in the emergency room patient could not answer the question. Very poor historian. No fever or chills. Not known whether exposed to coronavirus. Early this year was treated for sepsis and encephalopathy. CXR: Unremarkable CT Head: IMPRESSION: There are stable postoperative changes involving frontal lobes with encephalomalacia and residual left parafalcine lesion as detailed above. Overall, this been no significant interval change from 11/27/2018. 04/17: Awaiting todays labs to evaluate renal function and obtain Sterile Proc Tech. Cardiology consulted for Type 2 OR, wound care also consulted due to 5th right toe wound, will adjust Insulin for Blood sugar. 04/18. Labs reviewed. Cardiology recommends ischemic work up prior to DC. Monitor blood gas Plan (1) Acute encephalopathy Current Visit: Yes Status: Acute Plan to address problem: Still persists. Baseline not known Continue cefepime and vancomycin (2) Sepsis Current Visit: Yes Status: Acute Qualifiers: Severe sepsis shock status: without septic shock Plan to address problem: No source of infection identified. White count is high and patient has altered sensorium. IV cefepime and vancomycin started empirically. ID consult to be requested. (3) Elevated troponin- ?Type 2 Current Visit: Yes Status: Acute Plan to address problem: Cardiology following. (4) JOEL (acute kidney injury) Current Visit: Yes Status: Acute Plan to address problem: IV fluids for now We will get echocardiogram for ejection fraction (5) Hyperkalemia Current Visit: Yes Status: Acute Plan to address problem: Mild Treated (6) IDDM (insulin dependent diabetes mellitus) Current Visit: Yes Status: Chronic Plan to address problem: Continue Lantus and coverage Check hemoglobin A1c (7) Hyperlipidemia Current Visit: No Status: Chronic Qualifiers: Hyperlipidemia type: mixed hyperlipidemia Qualified Code(s): E78.2 - Mixed hyperlipidemia Plan to address problem: Continue statins (8) Hypertension Current Visit: Yes Status: Chronic Qualifiers: Hypertension type: essential hypertension Qualified Code(s): I10 - Essential (primary) hypertension Plan to address problem: Continue antihypertensives and adjust medications as necessary (9) GERD (gastroesophageal reflux disease) Current Visit: Yes Status: Chronic Qualifiers: Esophagitis presence: without esophagitis Qualified Code(s): K21.9 - Gastro-esophageal reflux disease without esophagitis Plan to address problem: Continue Protonix (10) Peripheral neuropathy Current Visit: Yes Status: Chronic Qualifiers: Peripheral neuropathy type: polyneuropathy, unspecified Qualified Code(s): G62.9 - Polyneuropathy, unspecified Plan to address problem: Continue Lyrica (11) Seizure disorder Current Visit: Yes Status: Chronic Plan to address problem: Continue Lamictal (12) DVT prophylaxis Current Visit: No Status: Acute History Interval history: No complaints Hospitalist Physical - Physical exam Narrative exam: VITAL SIGNS: Reviewed. GENERAL: Awake HEAD: No signs of head trauma. EYES: Pupils are equal. Extraocular motions intact. MOUTH: Oropharynx is normal. NECK: No adenopathy, no JVD. CHEST: Chest with diminished breath sounds bilaterally. No wheezes, rales, or rhonchi. CARDIAC: normal S1 and S2, without murmurs, gallops, or rubs. ABDOMEN: Soft, non tender and non distended. No rebound or guarding, and no masses palpated. Bowel Sounds normal. MUSCULOSKELETAL: Edema NEUROLOGIC EXAM: Alert and oriented x3. No focal neurologic deficits SKIN: No obvious lesions - Constitutional Vitals: Temp Pulse Resp BP Pulse Ox 98.9 F 114 H 18 118/45 96 04/18/20 11:40 04/18/20 11:40 04/18/20 11:40 04/18/20 11:40 04/18/20 11:40 HEART Score - HEART Score Age: 45-65 Risk factors: > 3 risk factors or hx of atherosclerotic disease Troponin: Troponin T < 0.010 ng/mL (0.00-0.029) 04/17/20 18:37 Troponin: 1-3x normal limit - Critical Actions Critical Actions: 4-6 pts:12-16.6% risk of adverse cardiac event. Should be ad mitted Results - Labs CBC & Chem 7: 04/18/20 05:23 04/18/20 05:23 Labs: Laboratory Last Values WBC 16.6 K/mm3 (4.5-11.0) H 04/18/20 05:23 RBC 4.40 M/mm3 (3.65-5.03) 04/18/20 05:23 Hgb 10.3 gm/dl (10.1-14.3) 04/18/20 05:23 Hct 33.3 % (30.3-42.9) 04/18/20 05:23 MCV 76 fl (79-97) L 04/18/20 05:23 MCH 24 pg (28-32) L 04/18/20 05:23 MCHC 31 % (30-34) 04/18/20 05:23 RDW 15.9 % (13.2-15.2) H 04/18/20 05:23 Plt Count 396 K/mm3 (140-440) 04/18/20 05:23 Lymph % (Auto) 9.8 % (13.4-35.0) L 04/18/20 05:23 [place] % (Auto) 12.9 % (0.0-7.3) H 04/18/20 05:23 Eos % (Auto) 1.0 % (0.0-4.3) 04/18/20 05:23 Baso % (Auto) 0.6 % (0.0-1.8) 04/18/20 05:23 Lymph # (Auto) 1.6 K/mm3 (1.2-5.4) 04/18/20 05:23 [place] # (Auto) 2.1 K/mm3 (0.0-0.8) H 04/18/20 05:23 Eos # (Auto) 0.2 K/mm3 (0.0-0.4) 04/18/20 05:23 Baso # (Auto) 0.1 K/mm3 (0.0-0.1) 04/18/20 05:23 Add Manual Diff Complete 04/17/20 10:38 Total Counted 100 04/17/20 10:38 Seg Neutrophils % 75.7 % (40.0-70.0) H 04/18/20 05:23 Seg Neuts % (Manual) 83.0 % (40.0-70.0) H 04/17/20 10:38 Band Neutrophils % 1.0 % 04/17/20 10:38 Lymphocytes % (Manual) 11.0 % (13.4-35.0) L 04/17/20 10:38 Monocytes % (Manual) 5.0 % (0.0-7.3) 04/17/20 10:38 Nucleated RBC % 1.0 % (0.0-0.9) H 04/17/20 10:38 Seg Neutrophils # 12.6 K/mm3 (1.8-7.7) H 04/18/20 05:23 Seg Neutrophils # Man 14.9 K/mm3 (1.8-7.7) H 04/17/20 10:38 Band Neutrophils # 0.2 K/mm3 04/17/20 10:38 Lymphocytes # (Manual) 2.0 K/mm3 (1.2-5.4) 04/17/20 10:38 Abs React Lymphs (Man) 0.0 K/mm3 04/17/20 10:38 Monocytes # (Manual) 0.9 K/mm3 (0.0-0.8) H 04/17/20 10:38 Eosinophils # (Manual) 0.0 K/mm3 (0.0-0.4) 04/17/20 10:38 Basophils # (Manual) 0.0 K/mm3 (0.0-0.1) 04/17/20 10:38 Metamyelocytes # 0.0 K/mm3 04/17/20 10:38 Myelocytes # 0.0 K/mm3 04/17/20 10:38 Promyelocytes # 0.0 K/mm3 04/17/20 10:38 Blast Cells # 0.0 K/mm3 04/17/20 10:38 WBC Morphology Not Reportable 04/17/20 10:38 Hypersegmented Neuts Not Reportable 04/17/20 10:38 Hyposegmented Neuts Not Reportable 04/17/20 10:38 Hypogranular Neuts Not Reportable 04/17/20 10:38 Smudge Cells Not Reportable 04/17/20 10:38 Toxic Granulation Not Reportable 04/17/20 10:38 Toxic Vacuolation Not Reportable 04/17/20 10:38 Dohle Bodies Not Reportable 04/17/20 10:38 Pelger-Huet Anomaly Not Reportable 04/17/20 10:38 Marcel Rods Not Reportable 04/17/20 10:38 Platelet Estimate Consistent w auto 04/17/20 10:38 Clumped Platelets Not Reportable 04/17/20 10:38 Plt Clumps, EDTA Not Reportable 04/17/20 10:38 Large Platelets 1+ 04/17/20 10:38 Giant Platelets Not Reportable 04/17/20 10:38 Platelet Satelliting Not Reportable 04/17/20 10:38 Plt Morphology Comment Not Reportable 04/17/20 10:38 RBC Morphology Not Reportable 04/17/20 10:38 Dimorphic RBCs Not Reportable 04/17/20 10:38 Polychromasia Few 04/17/20 10:38 Hypochromasia Not Reportable 04/17/20 10:38 Poikilocytosis Not Reportable 04/17/20 10:38 Anisocytosis 1+ 04/17/20 10:38 Microcytosis Not Reportable 04/17/20 10:38 Macrocytosis Not Reportable 04/17/20 10:38 Spherocytes Not Reportable 04/17/20 10:38 Pappenheimer Bodies Not Reportable 04/17/20 10:38 Sickle Cells Not Reportable 04/17/20 10:38 Target Cells Not Reportable 04/17/20 10:38 Tear Drop Cells Not Reportable 04/17/20 10:38 Ovalocytes Not Reportable 04/17/20 10:38 Helmet Cells Not Reportable 04/17/20 10:38 [place] Bodies Not Reportable 04/17/20 10:38 [place] Rings Not Reportable 04/17/20 10:38 [place] Cells Not Reportable 04/17/20 10:38 Bite Cells Not Reportable 04/17/20 10:38 Crenated Cell Not Reportable 04/17/20 10:38 Elliptocytes Not Reportable 04/17/20 10:38 Acanthocytes (Spur) Not Reportable 04/17/20 10:38 Rouleaux Not Reportable 04/17/20 10:38 Hemoglobin C Crystals Not Reportable 04/17/20 10:38 Schistocytes Not Reportable 04/17/20 10:38 Malaria parasites Not Reportable 04/17/20 10:38 Levi Bodies Not Reportable 04/17/20 10:38 Hem Pathologist Commnt No 04/17/20 10:38 PT 19.5 Sec. (12.2-14.9) H 04/16/20 19:29 INR 1.64 (0.87-1.13) H 04/16/20 19:29 APTT 43.3 Sec. (24.2-36.6) H 04/16/20 19:29 D-Dimer 1201.23 ng/mlDDU (0-234) H 04/17/20 10:38 Sodium 148 mmol/L (137-145) H 04/18/20 05:23 Potassium 5.5 mmol/L (3.6-5.0) H 04/18/20 05:23 Chloride 114.3 mmol/L (98-107) H 04/18/20 05:23 Carbon Dioxide 19 mmol/L (22-30) L 04/18/20 05:23 Anion Gap 20 mmol/L 04/18/20 05:23 BUN 31 mg/dL (7-17) H 04/18/20 05:23 Creatinine 0.6 mg/dL (0.6-1.2) 04/18/20 05:23 Estimated GFR > 60 ml/min 04/18/20 05:23 BUN/Creatinine Ratio 52 % 04/18/20 05:23 Glucose 201 mg/dL (65-100) H 04/18/20 05:23 POC Glucose 187 mg/dL (70-105) H 04/18/20 11:38 Hemoglobin A1c 7.6 % (4-6) H 04/18/20 05:23 Lactic Acid 1.10 mmol/L (0.7-2.0) 04/16/20 23:50 Calcium 9.9 mg/dL (8.4-10.2) 04/18/20 05:23 Magnesium 2.70 mg/dL (1.7-2.3) H 04/16/20 19:45 Ferritin 41164.0 ng/mL (10.0-200.0) H 04/17/20 10:38 Ammonia 50.0 umol/L (25-60) 04/16/20 19:57 Lactate Dehydrogenase 246 units/L (91-180) H 04/17/20 10:38 Total Creatine Kinase 303 units/L (30-135) H 04/16/20 19:45 CK-MB (CK-2) < 1.0 ng/mL (0.0-4.0) 04/16/20 19:45 CK-MB (CK-2) Rel Index 0.3 (0-4) 04/16/20 19:45 Troponin T < 0.010 ng/mL (0.00-0.029) 04/17/20 18:37 C-Reactive Protein 13.90 mg/dL (0.00-1.30) H 04/17/20 10:38 Triglycerides 171 mg/dL (2-149) H 04/16/20 19:29 Cholesterol 212 mg/dL (50-199) H 04/16/20 19:29 LDL Cholesterol Direct 147 mg/dL (50-130) H 04/16/20 19:29 HDL Cholesterol 35 mg/dL (40-59) L 04/16/20 19:29 Cholesterol/HDL Ratio 6.05 % 04/16/20 19:29 Procalcitonin 1.39 ng/mL (<0.15) 04/17/20 10:38 TSH 0.679 mlU/mL (0.270-4.200) 04/16/20 19:45 Free T4 0.94 ng/dL (0.76-1.46) 04/16/20 19:45 Plasma/Serum Alcohol < 0.01 % (0-0.07) 04/16/20 19:45 Coronavirus (PCR) Negative (Negative) 04/18/20 10:20 Microbiology: Microbiology 04/16/20 23:50 Peripheral/Venous Blood Culture - Preliminary NO GROWTH AFTER 24 HOURS 04/16/20 23:42 Peripheral/Venous Blood Culture - Preliminary NO GROWTH AFTER 24 HOURS Perez/IV: Voiding Method External Female Catheter IV Catheter Type [Left Peripheral IV Antecubital] Active Medications - Current Medications Current Medications: Generic Name Dose Route Start Last Admin Trade Name Freq PRN Reason Stop Dose Admin Acetaminophen 650 mg 04/17/20 23:57 04/18/20 01:04 Acetaminophen 650 Mg Rect Supp SD 650 mg Q6H PRN Administration Pain, Mild (1-3) Hydrocodone Bitart/Acetaminophen 1 each 04/17/20 10:00 Hydrocodone/Acetaminophen 5-325 Mg Tab PO Q4HR PRN PAIN Albuterol 2.5 mg 04/17/20 08:00 Albuterol 2.5 Mg/3 Ml Nebu IH Q4HRT PRN Shortness Of Breath Apixaban 5 mg 04/17/20 12:30 04/18/20 11:26 Apixaban 5 Mg Tab PO 5 mg BID VIOLETA Administration Protocol Atorvastatin Calcium 40 mg 04/17/20 22:00 04/18/20 00:47 Atorvastatin 40 Mg Tab PO Not Given QHS [facility] Cholecalciferol 1,000 unit 04/17/20 14:00 04/18/20 11:26 Cholecalciferol (Vit D3) 1000 Unit (25 Mcg) Tab PO 1,000 unit DAILY VIOLETA Administration Hydrocortisone Acetate 10 mg 04/17/20 10:00 04/18/20 11:26 Hydrocortisone 10 Mg Tab PO 10 mg BID VIOLETA Administration Cefepime HCl 2 gm in 100 mls @ 200 mls/hr 04/17/20 10:00 04/18/20 01:05 Cefepime/Ns 2 Gm/100 Ml IV 200 mls/hr Q8H [facility] Administration Protocol Sodium Chloride 1,000 mls @ 75 mls/hr 04/17/20 08:00 04/17/20 09:38 Nacl 0.9% 1000 Ml IV 75 mls/hr DIRECT VIOLETA Administration Vancomycin HCl 1,750 mg/ 535 mls @ 333.333 mls/hr 04/17/20 22:00 04/17/20 23:30 Sodium Chloride IV 333.333 mls/hr Q12H VIOLETA Administration Diltiazem HCl 100 mg in 100 mls @ 5 mls/hr 04/18/20 12:00 04/18/20 11:35 Cardizem/D5w 100mg/100ml IV 5 mg/hr TITR VIOLETA 5 mls/hr Administration Protocol 5 MG/HR Insulin Glargine 20 units 04/17/20 22:00 04/18/20 00:47 Insulin Glargine 100 Units/Ml SUB-Q Not Given QHS [facility] Insulin Human Lispro 0 unit 04/17/20 11:30 04/18/20 11:25 Insulin Lispro 100 Unit/Ml Vial 3 Ml SUB-Q Not Given ACHS [facility] Protocol Lamotrigine 25 mg 04/17/20 10:00 04/18/20 11:35 Lamotrigine 25 Mg Tab PO 25 mg BID VIOLETA Administration Levothyroxine Sodium 50 mcg 04/17/20 10:00 04/18/20 05:25 Levothyroxine 50 Mcg Tab PO Not Given DAILY@0600 [facility] Metoprolol Tartrate 50 mg 04/17/20 10:00 04/18/20 11:26 Metoprolol Tartrate 50 Mg Tab PO 50 mg BID VIOLETA Administration Pantoprazole Sodium 40 mg 04/17/20 10:00 04/18/20 11:26 Pantoprazole 40 Mg Tab PO 40 mg BID VIOLETA Administration Pregabalin 150 mg 04/17/20 10:00 04/18/20 11:26 Pregabalin 75 Mg Cap PO 150 mg BID VIOLETA Administration Sodium Polystyrene Sulfonate 60 gm 04/18/20 10:00 04/18/20 11:25 Sodium Polystyrene 15 Gm/60 Ml Oral Liqd PO 04/18/20 22:01 60 gm BID VIOLETA Administration
[2020-04-18] MEDS: VANCOMYCIN 1,750 MG in SODIUM CHLORIDE 0.9% 500 ML 500 ML IV SCH ×2 (15:15→23:48)
--- NOTE | 2020-04-18 16:50 | Consultation ---
History of Present Illness - Reason for Consult Consult date: 04/18/20 Sepsis unclear source Requesting physician: WILDA SCHAFFER - History of Present Illness 54 years old female with morbid obesity, JANI, PUD, hyperlipidemia, diabetes mellitus, hypertension, GERD, peripheral neuropathy, ? Meningioma status post craniotomy, previous coagulase-negative staph bacteremia and abdominal wall abscess, admitted on 04/16/2020 after being found unresponsive and diaphoretic at home. It is unclear for how long she was unresponsive. Patient is not the best historian unable to provide history due to altered mental status. On arrival, temperature 100.1, HR 103, RR 27, O2 sat 92%, BP 98/54. Initial WBC 20.6. D-dimer 12 4 1. Creatinine 1.7. Glucose 243. A1c 7.6. Procalcitonin 1.39. SARS-CoV-2 PCR negative. Blood culture 04/16/[address] of the head shows postoperative changes involving encephalomalacia and residual left parafalcine region mass ? Meningioma. Chest x-ray unremarkable. Review of Systems: Unable to obtain patient is confused Past History Past Medical History: diabetes, hypertension, hyperlipidemia Social history: no significant social history Family history: no significant family history Medications and Allergies Allergies Allergy/AdvReac Type Severity Reaction Status Date / Time erythromycin base Allergy Itching Verified 11/26/18 06:03 [From Erythrocin] Penicillins Allergy Rash Verified 11/26/18 06:02 Home Medications Medication Instructions Recorded Confirmed Last Taken Type Atorvastatin Calcium 40 mg PO BID 11/26/18 04/17/20 11/25/18 08:00 History Cholecalciferol Vit D3 [Vitamin D3 1,000 1000units PO QDAY 11/26/18 04/17/20 11/25/18 08:00 History 1,000 UNIT TAB] HYDROcodone/APAP 5-325 [[place] 1 each PO Q4HR PRN 11/26/18 04/17/20 Unknown History 5-325 mg TAB] Hydrocortisone [Cortef TAB] 10 mg PO BID 11/26/18 04/17/20 Unknown History Insulin Glargine,Hum.rec.anlog 60 unit SQ QHS 11/26/18 04/17/20 Unknown History [Lantus Solostar] Insulin Glargine,Hum.rec.anlog See Protocol SUB-Q QACHS 11/26/18 04/17/20 Unknown History [Lantus Solostar] Lasix TAB 20 mg PO BID 11/26/18 04/17/20 Unknown History Levothyroxine [Synthroid] 50 mcg PO QAM 11/26/18 04/17/20 11/24/18 08:00 History Lispro Insulin [HumaLOG] See Protocol SUB-Q ACHS 11/26/18 04/17/20 11/25/18 History Metoprolol [Lopressor TAB] 50 mg PO BID 11/26/18 04/17/20 Unknown History Mometasone 0.1% (Nf) 0.1 units TP BID 11/26/18 04/17/20 Unknown History Pantoprazole [Protonix TAB] 40 mg PO BID 11/26/18 04/17/20 Unknown History Petrolatum,White [Vaseline White 5 gm TP BID 11/26/18 04/17/20 Unknown History Petroleum] Pregabalin [Lyrica] 150 mg PO BID 11/26/18 04/17/20 11/25/18 08:00 History lamoTRIgine [LaMICtal] 25 mg PO BID 11/26/18 04/17/20 Unknown History ALBUTEROL NEB's [Proventil 0.083% 2.5 mg IH Q4HRT PRN nebu 05/20/19 04/17/20 Unknown Rx NEBS] Apixaban [Eliquis] 5 mg PO BID tablet 05/20/19 04/17/20 Unknown Rx AtorvaSTATin [Lipitor] 40 mg PO QDAY tablet 05/20/19 04/17/20 Unknown Rx Active Meds: Active Medications Acetaminophen (Acetaminophen 650 Mg Rect Supp) 650 mg NM Q6H PRN PRN Reason: Pain, Mild (1-3) Last Admin: 04/18/20 01:04 Dose: 650 mg Documented by: Hydrocodone Bitart/Acetaminophen (Hydrocodone/Acetaminophen 5-325 Mg Tab) 1 each PO Q4HR PRN PRN Reason: PAIN Albuterol (Albuterol 2.5 Mg/3 Ml Nebu) 2.5 mg IH Q4HRT PRN PRN Reason: Shortness Of Breath Apixaban (Apixaban 5 Mg Tab) 5 mg PO BID VIOLETA; Protocol Last Admin: 12/27/20 11:26 Dose: 5 mg Documented by: Atorvastatin Calcium (Atorvastatin 40 Mg Tab) 40 mg PO QHS [facility] Last Admin: 04/18/20 00:47 Dose: Not Given Documented by: Cholecalciferol (Cholecalciferol (Vit D3) 1000 Unit (25 Mcg) Tab) 1,000 unit PO DAILY [facility] Last Admin: 04/18/20 11:26 Dose: 1,000 unit Documented by: Hydrocortisone Acetate (Hydrocortisone 10 Mg Tab) 10 mg PO BID [facility] Last Admin: 04/18/20 11:26 Dose: 10 mg Documented by: Cefepime HCl (Cefepime/Ns 2 Gm/100 Ml) 2 gm in 100 mls @ 200 mls/hr IV Q8H [facility]; Protocol Last Admin: 04/18/20 01:05 Dose: 200 mls/hr Documented by: Vancomycin HCl 1,750 mg/ (Sodium Chloride) 535 mls @ 333.333 mls/hr IV Q12H [facility] Last Admin: 04/17/20 23:30 Dose: 333.333 mls/hr Documented by: Diltiazem HCl (Cardizem/D5w 100mg/100ml) 100 mg in 100 mls @ 5 mls/hr IV TITR [facility]; Protocol Last Admin: 04/18/20 11:35 Dose: 5 mg/hr, 5 mls/hr Documented by: Insulin Glargine (Insulin Glargine 100 Units/Ml) 20 units SUB-Q QHS [facility] Last Admin: 04/18/20 00:47 Dose: Not Given Documented by: Insulin Human Lispro (Insulin Lispro 100 Unit/Ml Vial 3 Ml) 0 unit SUB-Q ACHS [facility]; Protocol Last Admin: 04/18/20 11:25 Dose: Not Given Documented by: Lamotrigine (Lamotrigine 25 Mg Tab) 25 mg PO BID [facility] Last Admin: 04/18/20 11:35 Dose: 25 mg Documented by: Levothyroxine Sodium (Levothyroxine 50 Mcg Tab) 50 mcg PO DAILY@0600 [facility] Last Admin: 04/18/20 05:25 Dose: Not Given Documented by: Metoprolol Tartrate (Metoprolol Tartrate 50 Mg Tab) 50 mg PO BID [facility] Last Admin: 04/18/20 11:26 Dose: 50 mg Documented by: Pantoprazole Sodium (Pantoprazole 40 Mg Tab) 40 mg PO BID [facility] Last Admin: 12/27/20 11:26 Dose: 40 mg Documented by: Pregabalin (Pregabalin 75 Mg Cap) 150 mg PO BID [facility] Last Admin: 04/18/20 11:26 Dose: 150 mg Documented by: Sodium Polystyrene Sulfonate (Sodium Polystyrene 15 Gm/60 Ml Oral Liqd) 60 gm PO BID [facility] Stop: 04/18/20 22:01 Last Admin: 04/18/20 11:25 Dose: 60 gm Documented by: Physical Examination - Physical Exam Narrative exam: General appearance: Somnolent, no acute distress Eyes: anicteric sclerae, moist conjunctivae; no lid-lag; PERRLA HENT: Normocephalic, old craniotomy wound; normal external ears, nares open, oropharynx limited Neck: supple, tracheal midline, no JVD Lungs: Diminished breath sound bilaterally s CV: RRR no murmur Abdomen: Soft, obese, large pannus, bilateral groin maceration Extremities: Bilateral lower extremity edema 5th right toe wound, Skin: Bilateral groin deep abdominal folds maceration Psych: no agitated Neuro: Somnolent, nonverbal - Constitutional Vitals: Vital Signs Temp Pulse Resp BP Pulse Ox 98.9 F 114 H 18 118/45 96 04/18/20 11:40 04/18/20 11:40 04/18/20 11:40 04/18/20 11:40 04/18/20 11:40 Temperature -Last 24 Hours Temperature 98.9 F Temperature 99.2 F Temperature 98.0 F Temperature 100.3 F Temperature 100.3 F Temperature 99.0 F Results - Labs CBC & Chem 7: 04/18/20 05:23 04/18/20 05:23 Labs: Abnormal lab results 04/17/20 04/17/20 04/18/20 Range/Units 17:10 20:41 05:23 WBC (4.5-11.0) K/mm3 MCV (79-97) fl MCH (28-32) pg RDW (13.2-15.2) % Lymph % (Auto) (13.4-35.0) % [place] % (Auto) (0.0-7.3) % [place] # (Auto) (0.0-0.8) K/mm3 Seg Neutrophils % (40.0-70.0) % Seg Neutrophils # (1.8-7.7) K/mm3 Sodium (137-145) mmol/L Potassium (3.6-5.0) mmol/L Chloride (98-107) mmol/L Carbon Dioxide (22-30) mmol/L BUN (7-17) mg/dL Glucose (65-100) mg/dL POC Glucose 165 H 212 H (70-105) mg/dL Hemoglobin A1c 7.6 H (4-6) % 04/18/20 04/18/20 04/18/20 Range/Units 05:23 05:23 07:33 WBC 16.6 H (4.5-11.0) K/mm3 MCV 76 L (79-97) fl MCH 24 L (28-32) pg RDW 15.9 H (13.2-15.2) % Lymph % (Auto) 9.8 L (13.4-35.0) % [place] % (Auto) 12.9 H (0.0-7.3) % [place] # (Auto) 2.1 H (0.0-0.8) K/mm3 Seg Neutrophils % 75.7 H (40.0-70.0) % Seg Neutrophils # 12.6 H (1.8-7.7) K/mm3 Sodium 148 H (137-145) mmol/L Potassium 5.5 H (3.6-5.0) mmol/L Chloride 114.3 H (98-107) mmol/L Carbon Dioxide 19 L (22-30) mmol/L BUN 31 H (7-17) mg/dL Glucose 201 H (65-100) mg/dL POC Glucose 178 H (70-105) mg/dL Hemoglobin A1c (4-6) % 04/18/20 04/18/20 Range/Units 11:38 16:07 WBC (4.5-11.0) K/mm3 MCV (79-97) fl MCH (28-32) pg RDW (13.2-15.2) % Lymph % (Auto) (13.4-35.0) % [place] % (Auto) (0.0-7.3) % [place] # (Auto) (0.0-0.8) K/mm3 Seg Neutrophils % (40.0-70.0) % Seg Neutrophils # (1.8-7.7) K/mm3 Sodium (137-145) mmol/L Potassium (3.6-5.0) mmol/L Chloride (98-107) mmol/L Carbon Dioxide (22-30) mmol/L BUN (7-17) mg/dL Glucose (65-100) mg/dL POC Glucose 187 H 248 H (70-105) mg/dL Hemoglobin A1c (4-6) % Assessment and Plan Cultures: Blood culture 04/16/2020 no growth today. SARS-CoV-2 PCR negative. Assessment: 54 years old female with morbid obesity, JANI, PUD, hyperlipidemia, diabetes mellitus, hypertension, GERD, peripheral neuropathy, ? Meningioma status post craniotomy, previous coagulase-negative staph bacteremia and abdominal wall abscess, admitted on 04/16/2020 after being found unresponsive and diaphoretic at home: #SIRS rule out sepsis: present on admission with fever, leukocytosis, tachycardia, hypotension; unclear source. ? Abdominal wall cellulitis. Chest x-ray unremarkable. Urinalysis negative. Elevated procalcitonin in the setting of JOEL. SARS-CoV-2 PCR negative. #Abdominal wall cellulitis?/deep abdominal folds with maceration: Patient his tory of abdominal wall abscess #Right fifth toe wound: Noninfected? #JOEL: Improving #Diabetes mellitus uncontrolled #Encephalopathy: Patient found unresponsive. At baseline she is bedbound. Recommendations: Wound care consult Follow-up blood cultures Continue cefepime and vancomycin for now If no obvious source, consider lumbar puncture to rule out meningitis, patient with history of craniotomy Will follow. Linda May MD Infectious Diseases [facility] [facility] ([facility] M [phone] O [phone]
[2020-04-19] MEDS: SODIUM POLYSTYRENE 15 GM/60 ML ORAL LIQD PO SCH
[2020-04-19] MEDS: CEFEPIME/NS 2 GM/100 ML 2 GM/100 ML BAG IV SCH ×3 (02:53→13:10)
[2020-04-19 06:01] LABS: Blood Urea Nitrogen 27 mg/dL (7-17); Calcium 9.6 mg/dL (8.4-10.2); Hemolysis Index 5
[2020-04-19 06:04] LABS: BUN/Creatinine Ratio 45
[2020-04-19] MEDS: LEVOTHYROXINE 50 MCG TAB PO SCH (06:04)
[2020-04-19] MEDS: INSULIN LISPRO 100 UNIT/ML VIAL 3 mL SUB-Q SCH ×4 (08:30→23:21)
--- NOTE | 2020-04-19 10:37 | Progress Note ---
Assessment and Plan Atrial fibrillation, transient pt has reverted to sinus rhythm on IV diltiazem and oral metoprolol Abnormal ECG Borderline elevated troponin in the setting of sepsis and elevated renal function normal LVEF 55-60% Sepsis negative COVID 19 test Acute kidney injury Altered mental status Subjective Date of service: 04/19/20 Principal diagnosis: Elevated cardiac enzymes Interval history: Yesterday, patient was started on intravenous Diltiazem for the development of rapid atrial fibrillation. Currently, telemetry shows she has reverted to a sinus rhythm. Objective Vital Signs Temp Pulse Resp BP Pulse Ox 04/19/20 08:00 101 H 04/19/20 07:43 98.3 F 99 H 18 99/54 100 04/19/20 04:33 100 H 20 92/57 92 04/18/20 23:27 99.2 F 73 24 109/55 96 04/18/20 20:25 73 04/18/20 19:40 99.4 F 113 H 28 H 126/65 93 04/18/20 18:00 114 H 04/18/20 16:35 98.9 F 102 H 28 H 108/55 94 04/18/20 11:40 98.9 F 114 H 18 118/45 96 - Physical Examination General: No Apparent Distress, Other (Patient is somnolent) Cardiac: Positive: Tachycardia Lungs: Positive: Decreased Breath Sounds - Labs and Meds Comprehensive Metabolic Panel 04/19/20 Range/Units 04:55 Sodium 152 H (137-145) mmol/L Potassium 4.0 D (3.6-5.0) mmol/L Chloride 117.2 H (98-107) mmol/L Carbon Dioxide 24 (22-30) mmol/L BUN 27 H (7-17) mg/dL Creatinine 0.6 (0.6-1.2) mg/dL Glucose 325 H (65-100) mg/dL Calcium 9.6 (8.4-10.2) mg/dL - Imaging and Cardiology EKG: report reviewed
[2020-04-19] MEDS: VANCOMYCIN 1,750 MG in SODIUM CHLORIDE 0.9% 500 ML 500 ML IV SCH (10:54)
[2020-04-19] MEDS: PANTOPRAZOLE 40 MG TAB PO SCH ×2 (10:55→23:25)
[2020-04-19] MEDS: CHOLECALCIFEROL (VIT D3) 1000 UNIT (25 mcg) TAB PO SCH (10:55)
[2020-04-19] MEDS: HYDROCORTISONE 10 MG TAB PO SCH ×2 (10:55→23:23)
[2020-04-19] MEDS: PREGABALIN 75 MG CAP PO SCH ×2 (10:55→23:25)
[2020-04-19] MEDS: lamoTRIgine 25 MG TAB PO SCH ×2 (10:55→23:22)
[2020-04-19] MEDS: METOPROLOL TARTRATE 50 MG TAB PO SCH ×3 (10:55→20:44)
[2020-04-19] MEDS: dilTIAZem/D5W 100 MG/100 ML BAG IV SCH (10:55)
--- NOTE | 2020-04-19 12:33 | Progress Note ---
Assessment and Plan Assessment and plan: 54-year-old female with multiple medical problems including Peptic ulcer disease, Hypothyroidism, JANI, HLD, insulin-dependent diabetes, hypertension, and GERD, peripheral neuropathy and hyperlipidemia was found unresponsive and diaphoretic at home. In the ED the patient was feeling groggy and admits to shortness of breath and cough. Very when asked if she remembers how she ended up in the emergency room patient could not answer the question. Very poor historian. No fever or chills. Not known whether exposed to coronavirus. Early this year was treated for sepsis and encephalopathy. CXR: Unremarkable CT Head: IMPRESSION: There are stable postoperative changes involving frontal lobes with encephalomalacia and residual left parafalcine lesion as detailed above. Overall, this been no significant interval change from 11/27/2018. 04/17: Awaiting todays labs to evaluate renal function and obtain Tutoring Manager. Cardiology consulted for Type 2 NV, wound care also consulted due to 5th right toe wound, will adjust Insulin for Blood sugar. 04/18. Labs reviewed. Cardiology recommends ischemic work up prior to DC. Monitor blood gas 04/19. Discussed with patient's daughter who mentions that patient is usually able to have a normal conversation. Patient is also able to use her phone and post pictures on Facebook. Daughter's last conversation with patient was 4 days ago. In light of these changes, will order an LP to rule out encephalitis. MRI brain and EEG also ordered as per neurology evaluation earlier. Labs have been reviewed-started on hypotonic solution for hyponatremia Plan (1) Acute encephalopathy Current Visit: Yes Status: Acute Plan to address problem: Still persists. At baseline - she has a normal conversation with family as per daughter. Continue cefepime and vancomycin Plan for LP tomorrow. Will send CSF studies. She received AC yesterday, so LP should be done tomorrow. Check MRI brain and EEG (2) Sepsis Current Visit: Yes Status: Acute Qualifiers: Severe sepsis shock status: without septic shock Plan to address problem: No source of infection identified. White count is high and patient has altered sensorium. IV cefepime and vancomycin started empirically. ID recs appreciated (3) Elevated troponin- ?Type 2 Current Visit: Yes Status: Acute Plan to address problem: Cardiology following. (4) JOEL (acute kidney injury) Current Visit: Yes Status: Acute Plan to address problem: IV fluids for now Echocardiogram (5) Hypernatremia Current Visit: Yes Status: Acute Plan to address problem: Poor intake Start on hypotonic solution (6) IDDM (insulin dependent diabetes mellitus) Current Visit: Yes Status: Chronic Plan to address problem: Continue Lantus and SSI (7) Hyperlipidemia Current Visit: No Status: Chronic Qualifiers: Hyperlipidemia type: mixed hyperlipidemia Qualified Code(s): E78.2 - Mixed hyperlipidemia Plan to address problem: Continue statins (8) Hypertension Current Visit: Yes Status: Chronic Qualifiers: Hypertension type: essential hypertension Qualified Code(s): I10 - Essential (primary) hypertension Plan to address problem: Continue antihypertensives and adjust medications as necessary (9) GERD (gastroesophageal reflux disease) Current Visit: Yes Status: Chronic Qualifiers: Esophagitis presence: without esophagitis Qualified Code(s): K21.9 - Gastro-esophageal reflux disease without esophagitis Plan to address problem: Continue Protonix (10) Peripheral neuropathy Current Visit: Yes Status: Chronic Qualifiers: Peripheral neuropathy type: polyneuropathy, unspecified Qualified Code(s): G62.9 - Polyneuropathy, unspecified Plan to address problem: Continue Lyrica (11) Seizure disorder Current Visit: Yes Status: Chronic Plan to address problem: Continue Lamictal No seizures noted this time. Awaiting neurology eval. EEG pending (12) DVT prophylaxis Current Visit: No Status: Acute History Interval history: She is still confused. Discussed with patients daughter Jared - who states mother is usually able to have a normal conversation with her. Only difficulty she has is with ambulation and taking care of self. As patient is still confused, will get a neurology evaluation. Ordered MRI and EEG as advised by teleneurology. Hospitalist Physical - Physical exam Narrative exam: VITAL SIGNS: Reviewed. GENERAL: Awake HEAD: No signs of head trauma. EYES: Pupils are equal. Extraocular motions intact. MOUTH: Oropharynx is normal. NECK: No adenopathy, no JVD. CHEST: Chest with diminished breath sounds bilaterally. No wheezes, rales, or rhonchi. CARDIAC: normal S1 and S2, without murmurs, gallops, or rubs. ABDOMEN: Soft, non tender and non distended. No rebound or guarding, and no masses palpated. Bowel Sounds normal. MUSCULOSKELETAL: Edema NEUROLOGIC EXAM: Awake but confused. SKIN: No obvious lesions - Constitutional Vitals: Temp Pulse Resp BP Pulse Ox 98.3 F 101 H 18 99/54 100 04/19/20 07:43 04/19/20 08:00 04/19/20 07:43 04/19/20 07:43 04/19/20 07:43 HEART Score - HEART Score Age: 45-65 Risk factors: > 3 risk factors or hx of atherosclerotic disease Troponin: Troponin T < 0.010 ng/mL (0.00-0.029) 04/17/20 18:37 Troponin: 1-3x normal limit - Critical Actions Critical Actions: 4-6 pts:12-16.6% risk of adverse cardiac event. Should be admitted Results - Labs CBC & Chem 7: 04/18/20 05:23 04/19/20 04:55 Labs: Laboratory Last Values WBC 16.6 K/mm3 (4.5-11.0) H 04/18/20 05:23 RBC 4.40 M/mm3 (3.65-5.03) 04/18/20 05:23 Hgb 10.3 gm/dl (10.1-14.3) 04/18/20 05:23 Hct 33.3 % (30.3-42.9) 04/18/20 05:23 MCV 76 fl (79-97) L 04/18/20 05:23 MCH 24 pg (28-32) L 04/18/20 05:23 MCHC 31 % (30-34) 04/18/20 05:23 RDW 15.9 % (13.2-15.2) H 04/18/20 05:23 Plt Count 396 K/mm3 (140-440) 04/18/20 05:23 Lymph % (Auto) 9.8 % (13.4-35.0) L 04/18/20 05:23 [place] % (Auto) 12.9 % (0.0-7.3) H 04/18/20 05:23 Eos % (Auto) 1.0 % (0.0-4.3) 04/18/20 05:23 Baso % (Auto) 0.6 % (0.0-1.8) 04/18/20 05:23 Lymph # (Auto) 1.6 K/mm3 (1.2-5.4) 04/18/20 05:23 [place] # (Auto) 2.1 K/mm3 (0.0-0.8) H 04/18/20 05:23 Eos # (Auto) 0.2 K/mm3 (0.0-0.4) 04/18/20 05:23 Baso # (Auto) 0.1 K/mm3 (0.0-0.1) 04/18/20 05:23 Add Manual Diff Complete 04/17/20 10:38 Total Counted 100 04/17/20 10:38 Seg Neutrophils % 75.7 % (40.0-70.0) H 04/18/20 05:23 Seg Neuts % (Manual) 83.0 % (40.0-70.0) H 04/17/20 10:38 Band Neutrophils % 1.0 % 04/17/20 10:38 Lymphocytes % (Manual) 11.0 % (13.4-35.0) L 04/17/20 10:38 Monocytes % (Manual) 5.0 % (0.0-7.3) 04/17/20 10:38 Nucleated RBC % 1.0 % (0.0-0.9) H 04/17/20 10:38 Seg Neutrophils # 12.6 K/mm3 (1.8-7.7) H 04/18/20 05:23 Seg Neutrophils # Man 14.9 K/mm3 (1.8-7.7) H 04/17/20 10:38 Band Neutrophils # 0.2 K/mm3 04/17/20 10:38 Lymphocytes # (Manual) 2.0 K/mm3 (1.2-5.4) 04/17/20 10:38 Abs React Lymphs (Man) 0.0 K/mm3 04/17/20 10:38 Monocytes # (Manual) 0.9 K/mm3 (0.0-0.8) H 04/17/20 10:38 Eosinophils # (Manual) 0.0 K/mm3 (0.0-0.4) 04/17/20 10:38 Basophils # (Manual) 0.0 K/mm3 (0.0-0.1) 04/17/20 10:38 Metamyelocytes # 0.0 K/mm3 04/17/20 10:38 Myelocytes # 0.0 K/mm3 04/17/20 10:38 Promyelocytes # 0.0 K/mm3 04/17/20 10:38 Blast Cells # 0.0 K/mm3 04/17/20 10:38 WBC Morphology Not Reportable 04/17/20 10:38 Hypersegmented Neuts Not Reportable 04/17/20 10:38 Hyposegmented Neuts Not Reportable 04/17/20 10:38 Hypogranular Neuts Not Reportable 04/17/20 10:38 Smudge Cells Not Reportable 04/17/20 10:38 Toxic Granulation Not Reportable 04/17/20 10:38 Toxic Vacuolation Not Reportable 04/17/20 10:38 Dohle Bodies Not Reportable 04/17/20 10:38 Pelger-Huet Anomaly Not Reportable 04/17/20 10:38 Marcel Rods Not Reportable 04/17/20 10:38 Platelet Estimate Consistent w auto 04/17/20 10:38 Clumped Platelets Not Reportable 04/17/20 10:38 Plt Clumps, EDTA Not Reportable 04/17/20 10:38 Large Platelets 1+ 04/17/20 10:38 Giant Platelets Not Reportable 04/17/20 10:38 Platelet Satelliting Not Reportable 04/17/20 10:38 Plt Morphology Comment Not Reportable 04/17/20 10:38 RBC Morphology Not Reportable 04/17/20 10:38 Dimorphic RBCs Not Reportable 04/17/20 10:38 Polychromasia Few 04/17/20 10:38 Hypochromasia Not Reportable 04/17/20 10:38 Poikilocytosis Not Reportable 04/17/20 10:38 Anisocytosis 1+ 04/17/20 10:38 Microcytosis Not Reportable 04/17/20 10:38 Macrocytosis Not Reportable 04/17/20 10:38 Spherocytes Not Reportable 04/17/20 10:38 Pappenheimer Bodies Not Reportable 04/17/20 10:38 Sickle Cells Not Reportable 04/17/20 10:38 Target Cells Not Reportable 04/17/20 10:38 Tear Drop Cells Not Reportable 04/17/20 10:38 Ovalocytes Not Reportable 04/17/20 10:38 Helmet Cells Not Reportable 04/17/20 10:38 Moran-[place] Bodies Not Reportable 04/17/20 10:38 [place] Rings Not Reportable 04/17/20 10:38 Humble Cells Not Reportable 04/17/20 10:38 Bite Cells Not Reportable 04/17/20 10:38 Crenated Cell Not Reportable 04/17/20 10:38 Elliptocytes Not Reportable 04/17/20 10:38 Acanthocytes (Spur) Not Reportable 04/17/20 10:38 Rouleaux Not Reportable 04/17/20 10:38 Hemoglobin C Crystals Not Reportable 04/17/20 10:38 Schistocytes Not Reportable 04/17/20 10:38 Malaria parasites Not Reportable 04/17/20 10:38 Levi Bodies Not Reportable 04/17/20 10:38 Hem Pathologist Commnt No 04/17/20 10:38 PT 19.5 Sec. (12.2-14.9) H 04/16/20 19:29 INR 1.64 (0.87-1.13) H 04/16/20 19:29 APTT 43.3 Sec. (24.2-36.6) H 04/16/20 19:29 D-Dimer 1201.23 ng/mlDDU (0-234) H 04/17/20 10:38 Sodium 152 mmol/L (137-145) H 04/19/20 04:55 Potassium 4.0 mmol/L (3.6-5.0) D 04/19/20 04:55 Chloride 117.2 mmol/L (98-107) H 04/19/20 04:55 Carbon Dioxide 24 mmol/L (22-30) 04/19/20 04:55 Anion Gap 15 mmol/L 04/19/20 04:55 BUN 27 mg/dL (7-17) H 04/19/20 04:55 Creatinine 0.6 mg/dL (0.6-1.2) 04/19/20 04:55 Estimated GFR > 60 ml/min 04/19/20 04:55 BUN/Creatinine Ratio 45 % 04/19/20 04:55 Glucose 325 mg/dL (65-100) H 04/19/20 04:55 POC Glucose 251 mg/dL (70-105) H 04/19/20 12:01 Hemoglobin A1c 7.6 % (4-6) H 04/18/20 05:23 Lactic Acid 1.10 mmol/L (0.7-2.0) 04/16/20 23:50 Calcium 9.6 mg/dL (8.4-10.2) 04/19/20 04:55 Magnesium 2.70 mg/dL (1.7-2.3) H 04/16/20 19:45 Ferritin 92355.0 ng/mL (10.0-200.0) H 04/17/20 10:38 Ammonia 50.0 umol/L (25-60) 04/16/20 19:57 Lactate Dehydrogenase 246 units/L (91-180) H 04/17/20 10:38 Total Creatine Kinase 303 units/L (30-135) H 04/16/20 19:45 CK-MB (CK-2) < 1.0 ng/mL (0.0-4.0) 04/16/20 19:45 CK-MB (CK-2) Rel Index 0.3 (0-4) 04/16/20 19:45 Troponin T < 0.010 ng/mL (0.00-0.029) 04/17/20 18:37 C-Reactive Protein 13.90 mg/dL (0.00-1.30) H 04/17/20 10:38 Triglycerides 171 mg/dL (2-149) H 04/16/20 19:29 Cholesterol 212 mg/dL (50-199) H 04/16/20 19:29 LDL Cholesterol Direct 147 mg/dL (50-130) H 04/16/20 19:29 HDL Cholesterol 35 mg/dL (40-59) L 04/16/20 19: Cholesterol/HDL Ratio 6.05 % 04/16/20 19:29 Procalcitonin 1.39 ng/mL (<0.15) 04/17/20 10:38 TSH 0.679 mlU/mL (0.270-4.200) 04/16/20 19:45 Free T4 0.94 ng/dL (0.76-1.46) 04/16/20 19:45 Plasma/Serum Alcohol < 0.01 % (0-0.07) 04/16/20 19:45 Coronavirus (PCR) Negative (Negative) 04/18/20 10:20 Microbiology: Microbiology 04/16/20 23:50 Peripheral/Venous Blood Culture - Preliminary NO GROWTH AFTER 48 HOURS 04/16/20 23:42 Peripheral/Venous Blood Culture - Preliminary NO GROWTH AFTER 48 HOURS - Diagnostic Impressions Diagnostic Impressions: Echocardiogram 04/17/20 07:54 Transthoracic Echocardiogram Indication: SOB BP: 92/57 HR: 161 Conclusions *The study quality is technically difficult. *Global left ventricular systolic function is normal. *The estimated ejection fraction is 55-60%. *Mild concentric left ventricular hypertrophy is observed. *There is no significant mitral regurgitation. *There is at least mild to moderate tricuspid regurgitation. *There is at least mild pulmonary hypertension. *The right ventricular systolic pressure is calculated at 40 mmHg. Findings Procedure Info: The study quality is technically difficult. The study is technically limited due to poor acoustic windows. The study is technically limited due to patient body habitus. Left Ventricle: The left ventricular chamber size is normal. Mild concentric left ventricular hypertrophy is observed. Global left ventricular systolic function is normal. The estimated ejection fraction is 55-60%. Left Atrium: The left atrial chamber size is normal. Right Ventricle: The right ventricle is slightly dilated. The right ventricular global systolic function is normal. Right Atrium: The right atrial cavity size is normal. Aortic Valve: The aortic valve leaflets are mildly thickened. There is no evidence of aortic regurgitation. There is no evidence of aortic stenosis. Mitral Valve: The mitral valve leaflets are mildly thickened. There is no evidence of mitral regurgitation. There is no evidence of mitral stenosis. Tricuspid Valve: There is mild to moderate tricuspid regurgitation. The right ventricular systolic pressure is calculated at 40 mmHg. There is evidence of mild pulmonary hypertension. Pulmonic Valve: There is trace pulmonic regurgitation. Pericardium: There is no pericardial effusion. Aorta: There is no dilatation of the ascending aorta. There is no dilatation of the aortic root. Venous: The inferior vena cava appears normal in size. Measurements Chambers 2D Name Value Normal Range IVSd (2D) 1.25 cm (0.6 - 1.1) LVPWd (2D) 1.22 cm (0.6 - 1.1) LVIDd (2D) 3.38 cm (3.7 - 5.6) LVIDs (2D) 2.49 cm (2 - 3.8) LV FS (2D) 26.32 % - EF Teichholz (2D) 52.72 % - Ao root diameter (2D) 2.59 cm (2 - 3.7) Volumes/Mass Name Value Normal Range LA ESV SP 4CH (A/L) 35.95 ml - LA ESV SP 2CH (A/L) 35.35 ml - LA ESV BP (A/L) 36.93 ml - LA ESV BP (A/L) index 15.92 ml/m2 - LA ESV SP 4CH (MOD) 28.81 ml - LA ESV SP 2CH (MOD) 34.25 ml - LA ESV BP (MOD) 32.42 ml - LA ESV BP (MOD) index 13.97 ml/m2 - Diastolic/Systolic Function Name Value Normal Range MV E-wave Vmax 1.17 m/sec - MV deceleration time 107.18 msec - MV A-wave Vmax 0.67 m/sec - MV E:A ratio 1.75 ratio - Aortic Valve Name Value Normal Range AV Vmax 1.35 m/sec - AV VTI 18.24 cm - AV peak gradient 7.34 mmHg - AV mean gradient 3.81 mmHg - LVOT diameter 1.86 cm - LVOT Vmax 1.03 m/sec - LVOT VTI 14.97 cm - LVOT peak gradient 4.24 mmHg - LVOT mean gradient 1.98 mmHg - SV LVOT 40.48 ml - DRE (continuity Vmax) 2.05 cm2 - DRE (continuity VTI) 2.22 cm2 - Ascending Ao 2.6 cm - Tricuspid Valve Name Value Normal Range TR Vmax 3.05 m/sec - TR peak gradient 37 mmHg - RAP 3 mmHg - RVSP 40 mmHg - IVC diameter 1.34 cm (1.2 - 2.3) Pulmonic Valve/Qp:Qs Name Value Normal Range PV Vmax 1.14 m/sec - PV peak gradient 5.23 mmHg - AL end-diastolic Vmax 1.86 m/sec - PV acceleration time 72.31 msec - Perez/IV: Voiding Method External Female Catheter IV Catheter Type [Left Wrist] Peripheral IV IV Catheter Type [Left Peripheral IV Antecubital] Active Medications - Current Medications Current Medications: Generic Name Dose Route Start Last Admin Trade Name Freq PRN Reason Stop Dose Admin Acetaminophen 650 mg 04/17/20 23:57 04/18/20 01:04 Acetaminophen 650 Mg Rect Supp AL 650 mg Q6H PRN Administration Pain, Mild (1-3) Hydrocodone Bitart/Acetaminophen 1 each 04/17/20 10:00 Hydrocodone/Acetaminophen 5-325 Mg Tab PO Q4HR PRN PAIN Albuterol 2.5 mg 04/17/20 08:00 Albuterol 2.5 Mg/3 Ml Nebu IH Q4HRT PRN Shortness Of Breath Amiodarone HCl 200 mg 04/19/20 13:00 Amiodarone 200 Mg Tab PO BID [facility] Aspirin 81 mg 04/19/20 13:00 Aspirin 81 Mg Tab Chew PO QDAY [facility] Atorvastatin Calcium 40 mg 04/17/20 22:00 04/18/20 23:55 Atorvastatin 40 Mg Tab PO 40 mg QHS [facility] Administration Cholecalciferol 1,000 unit 04/17/20 14:00 04/19/20 10:55 Cholecalciferol (Vit D3) 1000 Unit (25 Mcg) Tab PO 1,000 unit DAILY VIOLETA Administration Clopidogrel Bisulfate 300 mg 04/19/20 13:00 Clopidogrel 300 Mg Tab PO 04/19/20 13:01 ONCE ONE Clopidogrel Bisulfate 75 mg 04/20/20 10:00 Clopidogrel 75 Mg Tab PO QDAY [facility] Hydrocortisone Acetate 10 mg 04/17/20 10:00 04/19/20 10:55 Hydrocortisone 10 Mg Tab PO 10 mg BID VIOLETA Administration Cefepime HCl 2 gm in 100 mls @ 200 mls/hr 04/17/20 10:00 04/19/20 03:10 Cefepime/Ns 2 Gm/100 Ml IV 200 mls/hr Q8H VIOLETA Administration Protocol Vancomycin HCl 1,750 mg/ 535 mls @ 333.333 mls/hr 04/17/20 22:00 04/19/20 10:54 Sodium Chloride IV 333.333 mls/hr Q12H VIOLETA Administration Insulin Glargine 20 units 04/17/20 22:00 04/18/20 23:57 Insulin Glargine 100 Units/Ml SUB-Q 20 units QHS VIOLETA Administration Insulin Human Lispro 0 unit 04/17/20 11:30 04/19/20 08:30 Insulin Lispro 100 Unit/Ml Vial 3 Ml SUB-Q 6 unit ACHS [facility] Administration Protocol Lamotrigine 25 mg 04/17/20 10:00 04/19/20 10:55 Lamotrigine 25 Mg Tab PO 25 mg BID VIOLETA Administration Levothyroxine Sodium 50 mcg 04/17/20 10:00 04/19/20 06:04 Levothyroxine 50 Mcg Tab PO 50 mcg DAILY@0600 VIOLETA Administration Metoprolol Tartrate 50 mg 04/19/20 14:00 Metoprolol Tartrate 50 Mg Tab PO TID VIOLETA Nitroglycerin 0.2 mg 04/19/20 13:00 Nitroglycerin 0.2 Mg Patch 24hr TD 04/19/20 13:01 ONCE ONE Pantoprazole Sodium 40 mg 04/17/20 10:00 04/19/20 10:55 Pantoprazole 40 Mg Tab PO 40 mg BID VIOLETA Administration Pregabalin 150 mg 04/17/20 10:00 04/19/20 10:55 Pregabalin 75 Mg Cap PO 150 mg BID VIOLETA Administration
[2020-04-19] MEDS ORDERED: CLOPIDOGREL 300 MG TAB PO ONE (13:00)
[2020-04-19] MEDS ORDERED: DEXTROSE 5% IN WATER 1,000 ML IV SCH (13:00)
[2020-04-19] MEDS ORDERED: NITROGLYCERIN 0.2 MG PATCH 24HR TD ONE (13:00)
[2020-04-19] MEDS: ASPIRIN 81 MG TAB CHEW PO SCH (13:07)
[2020-04-19] MEDS: HEPARIN 5,000 UNIT/1 ML VIAL SUB-Q SCH ×2 (13:07→23:24)
[2020-04-19] MEDS: AMIODARONE 200 MG TAB PO SCH ×2 (13:12→23:25)
--- NOTE | 2020-04-19 14:43 | Progress Note ---
Assessment and Plan 1. Acute kidney injury: Vasomotor JOEL in the setting of hypotension. Urine studies ordered. Monitor renal function. Creatinine level is better. Avoid nephrotoxic agents. Meds dosage based on GFR. 2. FEN: Metabolic acidosis, improving, monitor. Hyperkalemia, improved, monitor. Hypernatremia, on IV D5W, encourage PO fluids, monitor. Monitor lytes. 3. Acute metabolic encephalopathy, POA: 4. Sepsis: On IV Cefepime and Vancomycin. ID consulted. 5. Elevated troponin: Seen by Cardiology. 6. DM Type 2. 7. H/o Seizures. 8. H/o Meningioma resection. 9. Sleep apnea. Subjective: Patient was seen and examined at the bedside. Examination: General appearance: well-developed, well-nourished, appears stated age, obese, no distress HEENT: ATNC, KOURTNEY, scalp surgical scar Neck: Trachea midline Respiratory: Clear to Auscultation Cardiology: regular, S1S2, no murmur Abdomen: soft, normoactive bowel sounds, not tender Integumentary: no obvious, rash Neurologic: sleeping, arousable Ext: trace edema of both LEs noted Subjective Date of service: 04/19/20 Principal diagnosis: Elevated cardiac enzymes Objective - Vital Signs Vital signs: Vital Signs - 12hr 04/19/20 04/19/20 04/19/20 04:33 07:43 08:00 Temperature 98.3 F Pulse Rate 100 H 99 H 101 H Respiratory 20 18 Rate Blood Pressure 92/57 99/54 O2 Sat by Pulse 92 100 Oximetry 04/19/20 12:02 Temperature 98.3 F Pulse Rate 96 H Respiratory 18 Rate Blood Pressure 110/70 O2 Sat by Pulse 97 Oximetry - Lab 04/18/20 05:23 04/19/20 04:55 Most recent lab results Calcium 9.6 mg/dL (8.4-10.2) 04/19/20 04:55 Magnesium 2.70 mg/dL (1.7-2.3) H 04/16/20 19:45 Medications & Allergies - Medications Allergies/Adverse Reactions: Allergies erythromycin base [From Erythrocin] Allergy (Verified 11/26/18 06:03) Itching Penicillins Allergy (Verified 11/26/18 06:02) Rash Home Medications: Home Medications Medication Instructions Recorded Confirmed Last Taken Type Atorvastatin Calcium 40 mg PO BID 11/26/18 04/17/20 11/25/18 08:00 History Cholecalciferol Vit D3 [Vitamin D3 1,000 1000units PO QDAY 11/26/18 04/17/20 11/25/18 08:00 History 1,000 UNIT TAB] HYDROcodone/APAP 5-325 [[place] 1 each PO Q4HR PRN 11/26/18 04/17/20 Unknown History 5-325 mg TAB] Hydrocortisone [Cortef TAB] 10 mg PO BID 11/26/18 04/17/20 Unknown History Insulin Glargine,Hum.rec.anlog 60 unit SQ QHS 11/26/18 04/17/20 Unknown History [Lantus Solostar] Insulin Glargine,Hum.rec.anlog See Protocol SUB-Q QACHS 11/26/18 04/17/20 Unknown History [Lantus Solostar] Lasix TAB 20 mg PO BID 11/26/18 04/17/20 Unknown History Levothyroxine [Synthroid] 50 mcg PO QAM 11/26/18 04/17/20 11/24/18 08:00 History Lispro Insulin [HumaLOG] See Protocol SUB-Q ACHS 11/26/18 04/17/20 11/25/18 History Metoprolol [Lopressor TAB] 50 mg PO BID 11/26/18 04/17/20 Unknown History Mometasone 0.1% (Nf) 0.1 units TP BID 11/26/18 04/17/20 Unknown History Pantoprazole [Protonix TAB] 40 mg PO BID 11/26/18 04/17/20 Unknown History Petrolatum,White [Vaseline White 5 gm TP BID 11/26/18 04/17/20 Unknown History Petroleum] Pregabalin [Lyrica] 150 mg PO BID 11/26/18 04/17/20 11/25/18 08:00 History lamoTRIgine [LaMICtal] 25 mg PO BID 11/26/18 04/17/20 Unknown History ALBUTEROL NEB's [Proventil 0.083% 2.5 mg IH Q4HRT PRN nebu 05/20/19 04/17/20 Unknown Rx NEBS] Apixaban [Eliquis] 5 mg PO BID tablet 05/20/19 04/17/20 Unknown Rx AtorvaSTATin [Lipitor] 40 mg PO QDAY tablet 05/20/19 04/17/20 Unknown Rx Active Medications: Generic Name Dose Route Start Last Admin Trade Name Freq PRN Reason Stop Dose Admin Acetaminophen 650 mg 04/17/20 23:57 04/18/20 01:04 Acetaminophen 650 Mg Rect Supp ID 650 mg Q6H PRN Administration Pain, Mild (1-3) Hydrocodone Bitart/Acetaminophen 1 each 04/17/20 10:00 Hydrocodone/Acetaminophen 5-325 Mg Tab PO Q4HR PRN PAIN Albuterol 2.5 mg 04/17/20 08:00 Albuterol 2.5 Mg/3 Ml Nebu IH Q4HRT PRN Shortness Of Breath Amiodarone HCl 200 mg 04/19/20 13:00 04/19/20 13:12 Amiodarone 200 Mg Tab PO 200 mg BID VIOLETA Administration Aspirin 81 mg 04/19/20 13:00 04/19/20 13:07 Aspirin 81 Mg Tab Chew PO 81 mg QDAY VIOLETA Administration Atorvastatin Calcium 40 mg 04/17/20 22:00 04/18/20 23:55 Atorvastatin 40 Mg Tab PO 40 mg QHS VIOLETA Administration Cholecalciferol 1,000 unit 04/17/20 14:00 04/19/20 10:55 Cholecalciferol (Vit D3) 1000 Unit (25 Mcg) Tab PO 1,000 unit DAILY VIOLETA Administration Clopidogrel Bisulfate 75 mg 04/20/20 10:00 Clopidogrel 75 Mg Tab PO QDAY VIOLETA Heparin Sodium (Porcine) 5,000 unit 04/19/20 13:00 04/19/20 13:07 Heparin 5,000 Unit/1 Ml Vial SUB-Q 5,000 unit Q12HR VIOLETA Administration Hydrocortisone Acetate 10 mg 04/17/20 10:00 04/19/20 10:55 Hydrocortisone 10 Mg Tab PO 10 mg BID VIOLETA Administration Cefepime HCl 2 gm in 100 mls @ 200 mls/hr 04/17/20 10:00 04/19/20 13:10 Cefepime/Ns 2 Gm/100 Ml IV Not Given Q8H [facility] Protocol Vancomycin HCl 1,750 mg/ 535 mls @ 333.333 mls/hr 04/17/20 22:00 04/19/20 10:54 Sodium Chloride IV 333.333 mls/hr Q12H VIOLETA Administration Dextrose 1,000 mls @ 100 mls/hr 04/19/20 13:00 04/19/20 13:09 D5w IV 04/20/20 20:00 100 mls/hr DIRECT VIOLETA Administration Insulin Glargine 26 units 04/19/20 22:00 Insulin Glargine 100 Units/Ml SUB-Q QHS VIOLETA Insulin Human Lispro 0 unit 04/17/20 11:30 04/19/20 13:09 Insulin Lispro 100 Unit/Ml Vial 3 Ml SUB-Q 6 unit ACHS VIOLETA Administration Protocol Lamotrigine 25 mg 04/17/20 10:00 04/19/20 10:55 Lamotrigine 25 Mg Tab PO 25 mg BID VIOLETA Administration Levothyroxine Sodium 50 mcg 04/17/20 10:00 04/19/20 06:04 Levothyroxine 50 Mcg Tab PO 50 mcg DAILY@0600 VIOLETA Administration Metoprolol Tartrate 50 mg 04/19/20 14:00 04/19/20 13:07 Metoprolol Tartrate 50 Mg Tab PO 50 mg TID VIOLETA Administration Pantoprazole Sodium 40 mg 04/17/20 10:00 04/19/20 10:55 Pantoprazole 40 Mg Tab PO 40 mg BID VIOLETA Administration Pregabalin 150 mg 04/17/20 10:00 04/19/20 10:55 Pregabalin 75 Mg Cap PO 150 mg BID VIOLETA Administration
--- NOTE | 2020-04-19 16:53 | Progress Note ---
Assessment and Plan Cultures: Blood culture 04/16/2020 no growth today. SARS-CoV-2 PCR negative. Assessment: 54 years old female with morbid obesity, JANI, PUD, hyperlipidemia, diabetes mellitus, hypertension, GERD, peripheral neuropathy, ? Meningioma status post craniotomy, previous coagulase-negative staph bacteremia and abdominal wall abscess, admitted on 04/16/2020 after being found unresponsive and diaphoretic at home: #SIRS rule out sepsis: present on admission with fever, leukocytosis, tachycardia, hypotension; unclear source. ? Abdominal wall cellulitis. Chest x-ray unremarkable. Urinalysis negative. Elevated procalcitonin in the setting of JOEL. SARS-CoV-2 PCR negative. #Abdominal wall cellulitis?/deep abdominal folds with maceration: Patient history of abdominal wall abscess #Right fifth toe wound: Noninfected? #JOEL: Improved #Diabetes mellitus uncontrolled #Encephalopathy: Patient found unresponsive. At baseline she is bedbound. Recommendations: -Continue cefepime and vancomycin for now -Follow-up lumbar puncture and CSF analysis to rule out meningitis/encephalitis, patient with history of craniotomy -Monitor WBC Dejuan Mejia MD, FACP [facility] O: [phone] F: [phone] Subjective Date of service: 04/19/20 Principal diagnosis: Elevated cardiac enzymes Interval history: No fever. Remains encephalopathic. WBC improving. Labs with hypernatremia. Objective - Exam Narrative Exam: Physical Exam: Constitutional: Somnolent, does not follow commands Head, Ears, Nose: Normocephalic, atraumatic. External ears, nose normal Eyes: Conjunctivae/corneas clear. No icterus. No ptosis. Neck: Supple, no meningeal signs Oral: Unable to examine Cardiovascular: S1, S2 normal. Respiratory: Good air entry, clear to auscultation bilaterally GI: Soft, obese, large pannus, non-tender; bowel sounds + Musculoskeletal: Pedal edema Skin: No rash or abscess Hem/Lymphatic: No palpable cervical or supraclavicular nodes. No lymphangitis Psych: No agitation Neurological: encephalopathic, non verbal - Constitutional Vitals: Vital Signs Temp Pulse Resp BP Pulse Ox 98.3 F 96 H 18 110/70 97 04/19/20 12:02 04/19/20 12:02 04/19/20 12:02 04/19/20 12:02 04/19/20 12:02 Temperature -Last 24 Hours Temperature 98.3 F Temperature 98.3 F Temperature 99.2 F Temperature 99.4 F - Labs CBC & Chem 7: 04/18/20 05:23 04/19/20 04:55 Labs: Abnormal lab results 04/18/20 04/19/20 04/19/20 Range/Units 20:44 04:55 07:40 Sodium 152 H (137-145) mmol/L Chloride 117.2 H (98-107) mmol/L BUN 27 H (7-17) mg/dL Glucose 325 H (65-100) mg/dL POC Glucose 243 H 258 H (70-105) mg/dL 04/19/20 04/19/20 Range/Units 12:01 16:19 Sodium (137-145) mmol/L Chloride (98-107) mmol/L BUN (7-17) mg/dL Glucose (65-100) mg/dL POC Glucose 251 H 263 H (70-105) mg/dL
[2020-04-19] MEDS: INSULIN GLARGINE 100 UNITS/ML SUB-Q SCH (23:23)
[2020-04-20] MEDS: VANCOMYCIN 1,750 MG in SODIUM CHLORIDE 0.9% 500 ML 500 ML IV SCH ×3 (01:04→22:55)
[2020-04-20] MEDS: CEFEPIME/NS 2 GM/100 ML 2 GM/100 ML BAG IV SCH ×2 (02:53→10:58)
[2020-04-20 06:15] LABS: Mean Corpuscular HGB Conc 30 % (30-34); Mean Corpuscular Volume 77 fl (79-97); Platelet Count 423 K/mm3 (140-440); Red Blood Count 4.45 M/mm3 (3.65-5.03); Red Cell Distribution Width 16.5 % (13.2-15.2)
[2020-04-20 06:17] LABS: Basophils # (Auto) 0.2 K/mm3 (0.0-0.1); Basophils % (Auto) 0.6 % (0.0-1.8); Eosinophils # (Auto) 0.2 K/mm3 (0.0-0.4); Eosinophils % (Auto) 1.1 % (0.0-4.3); Hematocrit 34.3 % (30.3-42.9); Hemoglobin 10.2 gm/dl (10.1-14.3); Lymphocytes # (Auto) 2.3 K/mm3 (1.2-5.4); Lymphocytes % (Auto) 15.7 % (13.4-35.0); Monocytes % (Auto) 13.6 % (0.0-7.3)
[2020-04-20 06:23] LABS: Alanine Aminotransferase 58 units/L (7-56); Albumin 3.3 g/dL (3.9-5); BUN/Creatinine Ratio 30; Blood Urea Nitrogen 24 mg/dL (7-17); Calcium 9.3 mg/dL (8.4-10.2); Hemolysis Index 4
[2020-04-20] MEDS: LEVOTHYROXINE 50 MCG TAB PO SCH (06:45)
[2020-04-20] MEDS: METOPROLOL TARTRATE 50 MG TAB PO SCH ×3 (08:00→20:39)
[2020-04-20] MEDS: AMIODARONE 200 MG TAB PO SCH ×2 (09:25→21:59)
[2020-04-20] MEDS: HYDROCORTISONE 10 MG TAB PO SCH ×2 (09:25→21:59)
[2020-04-20] MEDS: lamoTRIgine 25 MG TAB PO SCH ×2 (09:25→21:59)
[2020-04-20] MEDS: CLOPIDOGREL 75 MG TAB PO SCH (09:26)
[2020-04-20] MEDS: CHOLECALCIFEROL (VIT D3) 1000 UNIT (25 mcg) TAB PO SCH (09:26)
[2020-04-20] MEDS: PREGABALIN 75 MG CAP PO SCH ×2 (09:26→21:59)
[2020-04-20] MEDS: PANTOPRAZOLE 40 MG TAB PO SCH (09:26)
[2020-04-20] MEDS: HEPARIN 5,000 UNIT/1 ML VIAL SUB-Q SCH ×2 (09:26→22:55)
[2020-04-20] MEDS: INSULIN LISPRO 100 UNIT/ML VIAL 3 mL SUB-Q SCH ×3 (09:27→21:58)
[2020-04-20] MEDS: ASPIRIN 81 MG TAB CHEW PO SCH (09:27)
--- NOTE | 2020-04-20 10:58 | Progress Note ---
Assessment and Plan Atrial fibrillation, transient pt has reverted to sinus rhythm on amiodarone and metoprolol for suppression Abnormal ECG -interval ECG demonstrating a transient inferior injury pattern, now resolved. Borderline elevated troponin in the setting of sepsis and elevated renal function normal LVEF 55-60% Sepsis negative COVID 19 test Acute kidney injury -resolved Altered mental status Recommendations: Continue medical management for paroxysmal atrial fibrillation and possible underlying coronary disease. Continue Heparin subcutaneous until predischarge Eliquis for long-term anticoagulation for paroxysmal atrial fibrillation. The patient is otherwise, not a candidate for aggressive cardiac invasive therapies. Subjective Date of service: 04/20/20 Principal diagnosis: Elevated cardiac enzymes Interval history: Patient is resting in bed with eyes closed. No distress noted. Telemetry currently shows a stable sinus rhythm. Objective Vital Signs Temp Pulse Resp BP BP Pulse Ox 04/20/20 08:19 98.0 F 92 H 18 110/64 98 04/20/20 08:12 95 04/20/20 04:41 99.0 F 88 18 106/54 96 04/19/20 23:58 98.0 F 159 H 18 96/59 94 04/19/20 21:15 112/58 04/19/20 20:44 162 H 04/19/20 20:24 98 F 68 121/68 04/19/20 16:20 99.8 F H 92 H 19 115/66 96 04/19/20 12:02 98.3 F 96 H 18 110/70 97 - Physical Examination General: No Apparent Distress, Other (Patient is somnolent) Cardiac: Positive: Reg Rate and Rhythm - Labs and Meds Cardiac Enzymes 04/20/20 Range/Units 05:19 AST 28 (5-40) units/L CBC 04/20/20 Range/Units 05:19 WBC 14.8 H (4.5-11.0) K/mm3 RBC 4.45 (3.65-5.03) M/mm3 Hgb 10.2 (10.1-14.3) gm/dl Hct 34.3 (30.3-42.9) % Plt Count 423 (140-440) K/mm3 Lymph # (Auto) 2.3 (1.2-5.4) K/mm3 [place] # (Auto) 2.0 H (0.0-0.8) K/mm3 Eos # (Auto) 0.2 (0.0-0.4) K/mm3 Baso # (Auto) 0.2 H (0.0-0.1) K/mm3 Comprehensive Metabolic Panel 04/20/20 Range/Units 05:19 Sodium 154 H (137-145) mmol/L Potassium 3.7 (3.6-5.0) mmol/L Chloride 119.6 H (98-107) mmol/L Carbon Dioxide 29 (22-30) mmol/L BUN 24 H (7-17) mg/dL Creatinine 0.8 (0.6-1.2) mg/dL Glucose 298 H (65-100) mg/dL Calcium 9.3 (8.4-10.2) mg/dL AST 28 (5-40) units/L ALT 58 H (7-56) units/L Alkaline Phosphatase 150 H (35-129) units/L Total Protein 7.6 (6.3-8.2) g/dL Albumin 3.3 L (3.9-5) g/dL
--- NOTE | 2020-04-20 14:07 | Progress Note ---
Assessment and Plan Assessment and plan: 54-year-old female with multiple medical problems including Peptic ulcer disease, Hypothyroidism, JANI, HLD, insulin-dependent diabetes, hypertension, and GERD, peripheral neuropathy and hyperlipidemia was found unresponsive and diaphoretic at home. In the ED the patient was feeling groggy and admits to shortness of breath and cough. Very when asked if she remembers how she ended up in the emergency room patient could not answer the question. Very poor historian. No fever or chills. Not known whether exposed to coronavirus. Early this year was treated for sepsis and encephalopathy. CXR: Unremarkable CT Head: IMPRESSION: There are stable postoperative changes involving frontal lobes with encephalomalacia and residual left parafalcine lesion as detailed above. Overall, this been no significant interval change from 11/27/2018. 04/17: Awaiting todays labs to evaluate renal function and obtain C Programmer. Cardiology consulted for Type 2 HI, wound care also consulted due to 5th right toe wound, will adjust Insulin for Blood sugar. 04/18. Labs reviewed. Cardiology recommends ischemic work up prior to DC. Monitor blood gas 04/19. Discussed with patient's daughter who mentions that patient is usually able to have a normal conversation. Patient is also able to use her phone and post pictures on Facebook. Daughter's last conversation with patient was 4 days ago. In light of these changes, will order an LP to rule out encephalitis. MRI brain and EEG also ordered as per neurology evaluation earlier. Labs have been reviewed-started on hypotonic solution for hypernatremia. 04/20. Plan for MRI brain and EEG today. LP still pending. Neurology evaluation. Labs reviewed-sodium 154. Continue hypotonic solution Plan (1) Acute encephalopathy Current Visit: Yes Status: Acute Plan to address problem: Still persists. At baseline - she has a normal conversation with family as per daughter. Continue cefepime and vancomycin Plan for LP tomorrow. Will send CSF studies.. Check MRI brain and EEG (2) Sepsis Current Visit: Yes Status: Acute Qualifiers: Severe sepsis shock status: without septic shock Plan to address problem: No source of infection identified. White count is high and patient has altered sensorium. IV cefepime and vancomycin started empirically. ID recs appreciated (3) Elevated troponin- ?Type 2 Current Visit: Yes Status: Acute Plan to address problem: Cardiology following. (4) JOEL (acute kidney injury) Current Visit: Yes Status: Acute Plan to address problem: IV fluids for now (5) Hypernatremia Current Visit: Yes Status: Acute Plan to address problem: Poor intake Continue hypotonic solution-D5W (6) IDDM (insulin dependent diabetes mellitus) Current Visit: Yes Status: Chronic Plan to address problem: Continue Lantus and SSI (7) Hyperlipidemia Current Visit: No Status: Chronic Qualifiers: Hyperlipidemia type: mixed hyperlipidemia Qualified Code(s): E78.2 - Mixed hyperlipidemia Plan to address problem: Continue statins (8) Hypertension Current Visit: Yes Status: Chronic Qualifiers: Hypertension type: essential hypertension Qualified Code(s): I10 - Essential (primary) hypertension Plan to address problem: Continue antihypertensives and adjust medications as necessary (9) GERD (gastroesophageal reflux disease) Current Visit: Yes Status: Chronic Qualifiers: Esophagitis presence: without esophagitis Qualified Code(s): K21.9 - Gastro-esophageal reflux disease without esophagitis Plan to address problem: Continue Protonix (10) Peripheral neuropathy Current Visit: Yes Status: Chronic Qualifiers: Peripheral neuropathy type: polyneuropathy, unspecified Qualified Code(s): G62.9 - Polyneuropathy, unspecified Plan to address problem: Continue Lyrica (11) Seizure disorder Current Visit: Yes Status: Chronic Plan to address problem: Continue Lamictal No seizures noted this time. Awaiting neurology eval. EEG pending (12) DVT prophylaxis Current Visit: No Status: Acute History Interval history: Patient seen and examined at bedside this morning Patient is lethargic Labs have been reviewed Plan for MRI brain, EEG and LP. Hospitalist Physical - Physical exam Narrative exam: VITAL SIGNS: Reviewed. GENERAL: Sleepy HEAD: No signs of head trauma. EYES: Pupils are equal. Extraocular motions intact. MOUTH: Oropharynx is normal. NECK: No adenopathy, no JVD. CHEST: Chest with diminished breath sounds bilaterally. No wheezes, rales, or rhonchi. CARDIAC: normal S1 and S2, without murmurs, gallops, or rubs. ABDOMEN: Soft, non tender and non distended. No rebound or guarding, and no masses palpated. Bowel Sounds normal. MUSCULOSKELETAL: Edema NEUROLOGIC EXAM: Sleepy SKIN: No obvious lesions - Constitutional Vitals: Temp Pulse Resp BP Pulse Ox 98.0 F 86 18 110/64 98 04/20/20 08:19 04/20/20 10:00 04/20/20 08:19 04/20/20 08:19 04/20/20 10:00 HEART Score - HEART Score Age: 45-65 Risk factors: > 3 risk factors or hx of atherosclerotic disease Troponin: Troponin T < 0.010 ng/mL (0.00-0.029) 04/17/20 18:37 Troponin: 1-3x normal limit - Critical Actions Critical Actions: 4-6 pts:12-16.6% risk of adverse cardiac event. Should be admitted Results - Labs CBC & Chem 7: 04/20/20 05:19 04/20/20 05:19 Labs: Laboratory Last Values WBC 14.8 K/mm3 (4.5-11.0) H 04/20/20 05:19 RBC 4.45 M/mm3 (3.65-5.03) 04/20/20 05:19 Hgb 10.2 gm/dl (10.1-14.3) 04/20/20 05:19 Hct 34.3 % (30.3-42.9) 04/20/20 05:19 MCV 77 fl (79-97) L 04/20/20 05:19 MCH 23 pg (28-32) L 04/20/20 05:19 MCHC 30 % (30-34) 04/20/20 05:19 RDW 16.5 % (13.2-15.2) H 04/20/20 05:19 Plt Count 423 K/mm3 (140-440) 04/20/20 05:19 Lymph % (Auto) 15.7 % (13.4-35.0) 04/20/20 05:19 Forrest % (Auto) 13.6 % (0.0-7.3) H 04/20/20 05:19 Eos % (Auto) 1.1 % (0.0-4.3) 04/20/20 05:19 Baso % (Auto) 0.6 % (0.0-1.8) 04/20/20 05:19 Lymph # (Auto) 2.3 K/mm3 (1.2-5.4) 04/20/20 05:19 Forrest # (Auto) 2.0 K/mm3 (0.0-0.8) H 04/20/20 05:19 Eos # (Auto) 0.2 K/mm3 (0.0-0.4) 04/20/20 05:19 Baso # (Auto) 0.2 K/mm3 (0.0-0.1) H 04/20/20 05:19 Add Manual Diff Complete 04/17/20 10:38 Total Counted 100 04/17/20 10:38 Seg Neutrophils % 69.0 % (40.0-70.0) 04/20/20 05:19 Seg Neuts % (Manual) 83.0 % (40.0-70.0) H 04/17/20 10:38 Band Neutrophils % 1.0 % 04/17/20 10:38 Lymphocytes % (Manual) 11.0 % (13.4-35.0) L 04/17/20 10:38 Monocytes % (Manual) 5.0 % (0.0-7.3) 04/17/20 10:38 Nucleated RBC % 1.0 % (0.0-0.9) H 04/17/20 10:38 Seg Neutrophils # 10.2 K/mm3 (1.8-7.7) H 04/20/20 05:19 Seg Neutrophils # Man 14.9 K/mm3 (1.8-7.7) H 04/17/20 10:38 Band Neutrophils # 0.2 K/mm3 04/17/20 10:38 Lymphocytes # (Manual) 2.0 K/mm3 (1.2-5.4) 04/17/20 10:38 Abs React Lymphs (Man) 0.0 K/mm3 04/17/20 10:38 Monocytes # (Manual) 0.9 K/mm3 (0.0-0.8) H 04/17/20 10:38 Eosinophils # (Manual) 0.0 K/mm3 (0.0-0.4) 04/17/20 10:38 Basophils # (Manual) 0.0 K/mm3 (0.0-0.1) 04/17/20 10:38 Metamyelocytes # 0.0 K/mm3 04/17/20 10:38 Myelocytes # 0.0 K/mm3 04/17/20 10:38 Promyelocytes # 0.0 K/mm3 04/17/20 10:38 Blast Cells # 0.0 K/mm3 04/17/20 10:38 WBC Morphology Not Reportable 04/17/20 10:38 Hypersegmented Neuts Not Reportable 04/17/20 10:38 Hyposegmented Neuts Not Reportable 04/17/20 10:38 Hypogranular Neuts Not Reportable 04/17/20 10:38 Smudge Cells Not Reportable 04/17/20 10:38 Toxic Granulation Not Reportable 04/17/20 10:38 Toxic Vacuolation Not Reportable 04/17/20 10:38 Dohle Bodies Not Reportable 04/17/20 10:38 Pelger-Huet Anomaly Not Reportable 04/17/20 10:38 Marcel Rods Not Reportable 04/17/20 10:38 Platelet Estimate Consistent w auto 04/17/20 10:38 Clumped Platelets Not Reportable 04/17/20 10:38 Plt Clumps, EDTA Not Reportable 04/17/20 10:38 Large Platelets 1+ 04/17/20 10:38 Giant Platelets Not Reportable 04/17/20 10:38 Platelet Satelliting Not Reportable 04/17/20 10:38 Plt Morphology Comment Not Reportable 04/17/20 10:38 RBC Morphology Not Reportable 04/17/20 10:38 Dimorphic RBCs Not Reportable 04/17/20 10:38 Polychromasia Few 04/17/20 10:38 Hypochromasia Not Reportable 04/17/20 10:38 Poikilocytosis Not Reportable 04/17/20 10:38 Anisocytosis 1+ 04/17/20 10:38 Microcytosis Not Reportable 04/17/20 10:38 Macrocytosis Not Reportable 04/17/20 10:38 Spherocytes Not Reportable 04/17/20 10:38 Pappenheimer Bodies Not Reportable 04/17/20 10:38 Sickle Cells Not Reportable 04/17/20 10:38 Target Cells Not Reportable 04/17/20 10:38 Tear Drop Cells Not Reportable 04/17/20 10:38 Ovalocytes Not Reportable 04/17/20 10:38 Helmet Cells Not Reportable 04/17/20 10:38 [place] Bodies Not Reportable 04/17/20 10:38 Brothers Rings Not Reportable 04/17/20 10:38 [place] Cells Not Reportable 04/17/20 10:38 Bite Cells Not Reportable 04/17/20 10:38 Crenated Cell Not Reportable 04/17/20 10:38 Elliptocytes Not Reportable 04/17/20 10:38 Acanthocytes (Spur) Not Reportable 04/17/20 10:38 Rouleaux Not Reportable 04/17/20 10:38 Hemoglobin C Crystals Not Reportable 04/17/20 10:38 Schistocytes Not Reportable 04/17/20 10:38 Malaria parasites Not Reportable 04/17/20 10:38 Levi Bodies Not Reportable 04/17/20 10:38 Hem Pathologist Commnt No 04/17/20 10:38 PT 19.5 Sec. (12.2-14.9) H 04/16/20 19:29 INR 1.64 (0.87-1.13) H 04/16/20 19:29 APTT 43.3 Sec. (24.2-36.6) H 04/16/20 19:29 D-Dimer 1201.23 ng/mlDDU (0-234) H 04/17/20 10:38 Sodium 154 mmol/L (137-145) H 04/20/20 05:19 Potassium 3.7 mmol/L (3.6-5.0) 04/20/20 05:19 Chloride 119.6 mmol/L (98-107) H 04/20/20 05:19 Carbon Dioxide 29 mmol/L (22-30) 04/20/20 05:19 Anion Gap 9 mmol/L 04/20/20 05:19 BUN 24 mg/dL (7-17) H 04/20/20 05:19 Creatinine 0.8 mg/dL (0.6-1.2) 04/20/20 05:19 Estimated GFR > 60 ml/min 04/20/20 05:19 BUN/Creatinine Ratio 30 % 04/20/20 05:19 Glucose 298 mg/dL (65-100) H 04/20/20 05:19 POC Glucose 222 mg/dL (70-105) H 04/20/20 10:57 Hemoglobin A1c 7.6 % (4-6) H 04/18/20 05:23 Lactic Acid 1.10 mmol/L (0.7-2.0) 04/16/20 23:50 Calcium 9.3 mg/dL (8.4-10.2) 04/20/20 05:19 Phosphorus 3.30 mg/dL (2.5-4.5) 04/20/20 05:19 Magnesium 2.70 mg/dL (1.7-2.3) H 04/16/20 19:45 Ferritin 00282.0 ng/mL (10.0-200.0) H 04/17/20 10:38 Total Bilirubin 0.30 mg/dL (0.1-1.2) 04/20/20 05:19 AST 28 units/L (5-40) 04/20/20 05:19 ALT 58 units/L (7-56) H 04/20/20 05:19 Alkaline Phosphatase 150 units/L (35-129) H 04/20/20 05:19 Ammonia 50.0 umol/L (25-60) 04/16/20 19:57 Lactate Dehydrogenase 246 units/L (91-180) H 04/17/20 10:38 Total Creatine Kinase 303 units/L (30-135) H 04/16/20 19:45 CK-MB (CK-2) < 1.0 ng/mL (0.0-4.0) 04/16/20 19:45 CK-MB (CK-2) Rel Index 0.3 (0-4) 04/16/20 19:45 Troponin T < 0.010 ng/mL (0.00-0.029) 04/17/20 18:37 C-Reactive Protein 13.90 mg/dL (0.00-1.30) H 04/17/20 10:38 Total Protein 7.6 g/dL (6.3-8.2) 04/20/20 05:19 Albumin 3.3 g/dL (3.9-5) L 04/20/20 05:19 Albumin/Globulin Ratio 0.8 % 04/20/20 05:19 Triglycerides 171 mg/dL (2-149) H 04/16/20 19:29 Cholesterol 212 mg/dL (50-199) H 04/16/20 19:29 LDL Cholesterol Direct 147 mg/dL (50-130) H 04/16/20 19:29 HDL Cholesterol 35 mg/dL (40-59) L 04/16/20 19:29 Cholesterol/HDL Ratio 6.05 % 04/16/20 19:29 Procalcitonin 1.39 ng/mL (<0.15) 04/17/20 10:38 TSH 0.679 mlU/mL (0.270-4.200) 04/16/20 19:45 Free T4 0.94 ng/dL (0.76-1.46) 04/16/20 19:45 Vancomycin Trough 56.2 ug/mL (5.0-20.0) H 04/20/20 10:17 Plasma/Serum Alcohol < 0.01 % (0-0.07) 04/16/20 19:45 Coronavirus (PCR) Negative (Negative) 04/18/20 10:20 Microbiology: Microbiology 04/16/20 23:50 Peripheral/Venous Blood Culture - Preliminary NO GROWTH AFTER 72 HOURS 04/16/20 23:42 Peripheral/Venous Blood Culture - Preliminary NO GROWTH AFTER 72 HOURS - Diagnostic Impressions Diagnostic Impressions: Echocardiogram 04/17/20 07:54 Transthoracic Echocardiogram Indication: SOB BP: 92/57 HR: 161 Conclusions *The study quality is technically difficult. *Global left ventricular systolic function is normal. *The estimated ejection fraction is 55-60%. *Mild concentric left ventricular hypertrophy is observed. *There is no significant mitral regurgitation. *There is at least mild to moderate tricuspid regurgitation. *There is at least mild pulmonary hypertension. *The right ventricular systolic pressure is calculated at 40 mmHg. Findings Procedure Info: The study quality is technically difficult. The study is technically limited due to poor acoustic windows. The study is technically limited due to patient body habitus. Left Ventricle: The left ventricular chamber size is normal. Mild concentric left ventricular hypertrophy is observed. Global left ventricular systolic function is normal. The estimated ejection fraction is 55-60%. Left Atrium: The left atrial chamber size is normal. Right Ventricle: The right ventricle is slightly dilated. The right ventricular global systolic function is normal. Right Atrium: The right atrial cavity size is normal. Aortic Valve: The aortic valve leaflets are mildly thickened. There is no evidence of aortic regurgitation. There is no evidence of aortic stenosis. Mitral Valve: The mitral valve leaflets are mildly thickened. There is no evidence of mitral regurgitation. There is no evidence of mitral stenosis. Tricuspid Valve: There is mild to moderate tricuspid regurgitation. The right ventricular systolic pressure is calculated at 40 mmHg. There is evidence of mild pulmonary hypertension. Pulmonic Valve: There is trace pulmonic regurgitation. Pericardium: There is no pericardial effusion. Aorta: There is no dilatation of the ascending aorta. There is no dilatation of the aortic root. Venous: The inferior vena cava appears normal in size. Measurements Chambers 2D Name Value Normal Range IVSd (2D) 1.25 cm (0.6 - 1.1) LVPWd (2D) 1.22 cm (0.6 - 1.1) LVIDd (2D) 3.38 cm (3.7 - 5.6) LVIDs (2D) 2.49 cm (2 - 3.8) LV FS (2D) 26.32 % - EF Teichholz (2D) 52.72 % - Ao root diameter (2D) 2.59 cm (2 - 3.7) Volumes/Mass Name Value Normal Range LA ESV SP 4CH (A/L) 35.95 ml - LA ESV SP 2CH (A/L) 35.35 ml - LA ESV BP (A/L) 36.93 ml - LA ESV BP (A/L) index 15.92 ml/m2 - LA ESV SP 4CH (MOD) 28.81 ml - LA ESV SP 2CH (MOD) 34.25 ml - LA ESV BP (MOD) 32.42 ml - LA ESV BP (MOD) index 13.97 ml/m2 - Diastolic/Systolic Function Name Value Normal Range MV E-wave Vmax 1.17 m/sec - MV deceleration time 107.18 msec - MV A-wave Vmax 0.67 m/sec - MV E:A ratio 1.75 ratio - Aortic Valve Name Value Normal Range AV Vmax 1.35 m/sec - AV VTI 18.24 cm - AV peak gradient 7.34 mmHg - AV mean gradient 3.81 mmHg - LVOT diameter 1.86 cm - LVOT Vmax 1.03 m/sec - LVOT VTI 14.97 cm - LVOT peak gradient 4.24 mmHg - LVOT mean gradient 1.98 mmHg - SV LVOT 40.48 ml - DRE (continuity Vmax) 2.05 cm2 - DRE (continuity VTI) 2.22 cm2 - Ascending Ao 2.6 cm - Tricuspid Valve Name Value Normal Range TR Vmax 3.05 m/sec - TR peak gradient 37 mmHg - RAP 3 mmHg - RVSP 40 mmHg - IVC diameter 1.34 cm (1.2 - 2.3) Pulmonic Valve/Qp:Qs Name Value Normal Range PV Vmax 1.14 m/sec - PV peak gradient 5.23 mmHg - RI end-diastolic Vmax 1.86 m/sec - PV acceleration time 72.31 msec - Perez/IV: Voiding Method External Female Catheter IV Catheter Type [Left Forearm INT / Saline Lock ] IV Catheter Type [Left Wrist] Peripheral IV IV Catheter Type [Left INT / Saline Lock Antecubital] Active Medications - Current Medications Current Medications: Generic Name Dose Route Start Last Admin Trade Name Freq PRN Reason Stop Dose Admin Acetaminophen 650 mg 04/17/20 23:57 04/18/20 01:04 Acetaminophen 650 Mg Rect Supp RI 650 mg Q6H PRN Administration Pain, Mild (1-3) Hydrocodone Bitart/Acetaminophen 1 each 04/17/20 10:00 Hydrocodone/Acetaminophen 5-325 Mg Tab PO Q4HR PRN PAIN Albuterol 2.5 mg 04/17/20 08:00 Albuterol 2.5 Mg/3 Ml Nebu IH Q4HRT PRN Shortness Of Breath Amiodarone HCl 200 mg 04/19/20 13:00 04/20/20 09:25 Amiodarone 200 Mg Tab PO 200 mg BID VIOLETA Administration Aspirin 81 mg 04/19/20 13:00 04/20/20 09:27 Aspirin 81 Mg Tab Chew PO 81 mg QDAY VIOLETA Administration Atorvastatin Calcium 40 mg 04/17/20 22:00 04/19/20 23:24 Atorvastatin 40 Mg Tab PO 40 mg QHS VIOLETA Administration Cholecalciferol 1,000 unit 04/17/20 14:00 04/20/20 09:26 Cholecalciferol (Vit D3) 1000 Unit (25 Mcg) Tab PO 1,000 unit DAILY VIOLETA Administration Clopidogrel Bisulfate 75 mg 04/20/20 10:00 04/20/20 09:26 Clopidogrel 75 Mg Tab PO 75 mg QDAY VIOLETA Administration Heparin Sodium (Porcine) 5,000 unit 04/19/20 13:00 04/20/20 09:26 Heparin 5,000 Unit/1 Ml Vial SUB-Q 5,000 unit Q12HR VIOLETA Administration Hydrocortisone Acetate 10 mg 04/17/20 10:00 04/20/20 09:25 Hydrocortisone 10 Mg Tab PO 10 mg BID VIOLETA Administration Cefepime HCl 2 gm in 100 mls @ 200 mls/hr 04/17/20 10:00 04/20/20 10:58 Cefepime/Ns 2 Gm/100 Ml IV 200 mls/hr Q8H VIOLETA Administration Protocol Vancomycin HCl 1,750 mg/ 535 mls @ 333.333 mls/hr 04/17/20 22:00 04/20/20 09:27 Sodium Chloride IV 333.333 mls/hr Q12H VIOLETA Administration Dextrose 1,000 mls @ 100 mls/hr 04/19/20 13:00 04/19/20 13:09 D5w IV 04/20/20 20:00 100 mls/hr DIRECT VIOLETA Administration Insulin Glargine 26 units 04/19/20 22:00 04/19/20 23:23 Insulin Glargine 100 Units/Ml SUB-Q 26 units QHS VIOLETA Administration Insulin Human Lispro 0 unit 04/17/20 11:30 04/20/20 12:42 Insulin Lispro 100 Unit/Ml Vial 3 Ml SUB-Q 4 unit ACHS VIOLETA Administration Protocol Lamotrigine 25 mg 04/17/20 10:00 04/20/20 09:25 Lamotrigine 25 Mg Tab PO 25 mg BID VIOLETA Administration Levothyroxine Sodium 50 mcg 04/17/20 10:00 04/20/20 06:45 Levothyroxine 50 Mcg Tab PO 50 mcg DAILY@0600 VIOLETA Administration Metoprolol Tartrate 50 mg 04/19/20 14:00 04/20/20 08:00 Metoprolol Tartrate 50 Mg Tab PO 50 mg TID VIOLETA Administration Nitroglycerin 0.2 mg 04/21/20 06:00 Nitroglycerin 0.2 Mg Patch 24hr TD QDAY@0600 VIOLETA Pantoprazole Sodium 40 mg 04/20/20 16:30 Pantoprazole 40 Mg Tab PO BIDAC [facility] Pregabalin 150 mg 04/17/20 10:00 04/20/20 09:26 Pregabalin 75 Mg Cap PO 150 mg BID VIOLETA Administration
--- NOTE | 2020-04-20 14:17 | Progress Note ---
Assessment and Plan 1. Acute kidney injury: Vasomotor JOEL in the setting of hypotension. Urine studies ordered. Monitor renal function. Creatinine level is better. Avoid nephrotoxic agents. Meds dosage based on GFR. 2. FEN: Metabolic acidosis, improved, monitor. Hyperkalemia, improved, monitor. Hypernatremia, continue IV D5W, monitor. Unlikely DI, Ur Osm ordered. Asked the RN to send Urine sample. Monitor lytes. 3. Acute metabolic encephalopathy, POA. 4. Sepsis: On IV Cefepime and Vancomycin. Followed by ID. 5. Elevated troponin: Seen by Cardiology. 6. DM Type 2. 7. H/o Seizures. 8. H/o Meningioma resection. 9. Sleep apnea. Subjective: Patient was seen and examined at the bedside. Examination: General appearance: well-developed, well-nourished, appears stated age, obese, no distress HEENT: ATNC, KOURTNEY, scalp surgical scar Neck: Trachea midline Respiratory: Clear to Auscultation Cardiology: regular, S1S2, no murmur Abdomen: soft, normoactive bowel sounds, not tender Integumentary: no obvious, rash Neurologic: not responding Ext: trace edema of both LEs noted Subjective Date of service: 04/20/20 Principal diagnosis: Elevated cardiac enzymes Objective - Vital Signs Vital signs: Vital Signs - 12hr 04/20/20 04/20/20 04/20/20 04:41 08:12 08:19 Temperature 99.0 F 98.0 F Pulse Rate 88 92 H Pulse Rate [ Dorsalis Pedis] Pulse Rate [ Posterior Tibial] Respiratory 18 18 Rate Blood Pressure 106/54 110/64 O2 Sat by Pulse 96 95 98 Oximetry 04/20/20 10:00 Temperature Pulse Rate 86 Pulse Rate [ 86 Dorsalis Pedis] Pulse Rate [ 86 Posterior Tibial] Respiratory Rate Blood Pressure O2 Sat by Pulse 98 Oximetry - Lab 04/20/20 05:19 04/20/20 16:05 Most recent lab results Calcium 9.3 mg/dL (8.4-10.2) 04/20/20 05:19 Phosphorus 3.30 mg/dL (2.5-4.5) 04/20/20 05:19 Magnesium 2.70 mg/dL (1.7-2.3) H 04/16/20 19:45 Medications & Allergies - Medications Allergies/Adverse Reactions: Allergies erythromycin base [From Erythrocin] Allergy (Verified 11/26/18 06:03) Itching Penicillins Allergy (Verified 11/26/18 06:02) Rash Home Medications: Home Medications Medication Instructions Recorded Confirmed Last Taken Type Atorvastatin Calcium 40 mg PO BID 11/26/18 04/17/20 11/25/18 08:00 History Cholecalciferol Vit D3 [Vitamin D3 1,000 1000units PO QDAY 11/26/18 04/17/20 11/25/18 08:00 History 1,000 UNIT TAB] HYDROcodone/APAP 5-325 [[place] 1 each PO Q4HR PRN 11/26/18 04/17/20 Unknown History 5-325 mg TAB] Hydrocortisone [Cortef TAB] 10 mg PO BID 11/26/18 04/17/20 Unknown History Insulin Glargine,Hum.rec.anlog 60 unit SQ QHS 11/26/18 04/17/20 Unknown History [Lantus Solostar] Insulin Glargine,Hum.rec.anlog See Protocol SUB-Q QACHS 11/26/18 04/17/20 Unknown History [Lantus Solostar] Lasix TAB 20 mg PO BID 11/26/18 04/17/20 Unknown History Levothyroxine [Synthroid] 50 mcg PO QAM 11/26/18 04/17/20 11/24/18 08:00 History Lispro Insulin [HumaLOG] See Protocol SUB-Q ACHS 11/26/18 04/17/20 11/25/18 History Metoprolol [Lopressor TAB] 50 mg PO BID 11/26/18 04/17/20 Unknown History Mometasone 0.1% (Nf) 0.1 units TP BID 11/26/18 04/17/20 Unknown History Pantoprazole [Protonix TAB] 40 mg PO BID 11/26/18 04/17/20 Unknown History Petrolatum,White [Vaseline White 5 gm TP BID 11/26/18 04/17/20 Unknown History Petroleum] Pregabalin [Lyrica] 150 mg PO BID 11/26/18 04/17/20 11/25/18 08:00 History lamoTRIgine [LaMICtal] 25 mg PO BID 11/26/18 04/17/20 Unknown History ALBUTEROL NEB's [Proventil 0.083% 2.5 mg IH Q4HRT PRN nebu 05/20/19 04/17/20 Unknown Rx NEBS] Apixaban [Eliquis] 5 mg PO BID tablet 05/20/19 04/17/20 Unknown Rx AtorvaSTATin [Lipitor] 40 mg PO QDAY tablet 05/20/19 04/17/20 Unknown Rx Active Medications: Generic Name Dose Route Start Last Admin Trade Name Freq PRN Reason Stop Dose Admin Acetaminophen 650 mg 04/17/20 23:57 04/18/20 01:04 Acetaminophen 650 Mg Rect Supp [place] 650 mg Q6H PRN Administration Pain, Mild (1-3) Hydrocodone Bitart/Acetaminophen 1 each 04/17/20 10:00 Hydrocodone/Acetaminophen 5-325 Mg Tab PO Q4HR PRN PAIN Albuterol 2.5 mg 04/17/20 08:00 Albuterol 2.5 Mg/3 Ml Nebu IH Q4HRT PRN Shortness Of Breath Amiodarone HCl 200 mg 04/19/20 13:00 04/20/20 09:25 Amiodarone 200 Mg Tab PO 200 mg BID VIOLETA Administration Aspirin 81 mg 04/19/20 13:00 04/20/20 09:27 Aspirin 81 Mg Tab Chew PO 81 mg QDAY VIOLETA Administration Atorvastatin Calcium 40 mg 04/17/20 22:00 04/19/20 23:24 Atorvastatin 40 Mg Tab PO 40 mg QHS VIOLETA Administration Cholecalciferol 1,000 unit 04/17/20 14:00 04/20/20 09:26 Cholecalciferol (Vit D3) 1000 Unit (25 Mcg) Tab PO 1,000 unit DAILY VIOLETA Administration Clopidogrel Bisulfate 75 mg 04/20/20 10:00 04/20/20 09:26 Clopidogrel 75 Mg Tab PO 75 mg QDAY VIOLETA Administration Heparin Sodium (Porcine) 5,000 unit 04/19/20 13:00 04/20/20 09:26 Heparin 5,000 Unit/1 Ml Vial SUB-Q 5,000 unit Q12HR VIOLETA Administration Hydrocortisone Acetate 10 mg 04/17/20 10:00 04/20/20 09:25 Hydrocortisone 10 Mg Tab PO 10 mg BID VIOLETA Administration Cefepime HCl 2 gm in 100 mls @ 200 mls/hr 04/17/20 10:00 04/20/20 10:58 Cefepime/Ns 2 Gm/100 Ml IV 200 mls/hr Q8H VIOLETA Administration Protocol Vancomycin HCl 1,750 mg/ 535 mls @ 333.333 mls/hr 04/17/20 22:00 04/20/20 09:27 Sodium Chloride IV 333.333 mls/hr Q12H VIOLETA Administration Dextrose 1,000 mls @ 100 mls/hr 04/19/20 13:00 04/19/20 13:09 D5w IV 04/21/20 20:00 100 mls/hr DIRECT VIOLETA Administration Insulin Glargine 26 units 04/19/20 22:00 04/19/20 23:23 Insulin Glargine 100 Units/Ml SUB-Q 26 units QHS VIOLETA Administration Insulin Human Lispro 0 unit 04/17/20 11:30 04/20/20 12:42 Insulin Lispro 100 Unit/Ml Vial 3 Ml SUB-Q 4 unit ACHS VIOLETA Administration Protocol Lamotrigine 25 mg 04/17/20 10:00 04/20/20 09:25 Lamotrigine 25 Mg Tab PO 25 mg BID VIOLETA Administration Levothyroxine Sodium 50 mcg 04/17/20 10:00 04/20/20 06:45 Levothyroxine 50 Mcg Tab PO 50 mcg DAILY@0600 VIOLETA Administration Metoprolol Tartrate 50 mg 04/19/20 14:00 04/20/20 08:00 Metoprolol Tartrate 50 Mg Tab PO 50 mg TID VIOLETA Administration Nitroglycerin 0.2 mg 04/21/20 06:00 Nitroglycerin 0.2 Mg Patch 24hr TD QDAY@0600 [facility] Pantoprazole Sodium 40 mg 04/20/20 16:30 Pantoprazole 40 Mg Tab PO BIDAC [facility] Pregabalin 150 mg 04/17/20 10:00 04/20/20 09:26 Pregabalin 75 Mg Cap PO 150 mg BID VIOLETA Administration
--- NOTE | 2020-04-20 14:21 | Consultation ---
History of Present Illness Consult date: 04/20/20 Reason for Consult: AMS Chief complaint: AMS History of present illness: 54 yo female with sarcoidosis, hypothyroidism, htn, dm, edmond, gerd, who presented initially with noted encephalopathy and shortness of breath with a cough. During the hospital course, nchct noted with bilateral frontal encephalomalacia, treatment for sepsis, COVID-19 test negative, paroxysmal afib, and continued encephalopathy. Past History Past Medical History: diabetes, hypertension, hyperlipidemia Social history: no significant social history Family history: no significant family history Medications and Allergies Allergies Allergy/AdvReac Type Severity Reaction Status Date / Time erythromycin base Allergy Itching Verified 11/26/18 06:03 [From Erythrocin] Penicillins Allergy Rash Verified 11/26/18 06:02 Home Medications Medication Instructions Recorded Confirmed Last Taken Type Atorvastatin Calcium 40 mg PO BID 11/26/18 04/17/20 11/25/18 08:00 History Cholecalciferol Vit D3 [Vitamin D3 1,000 1000units PO QDAY 11/26/18 04/17/20 11/25/18 08:00 History 1,000 UNIT TAB] HYDROcodone/APAP 5-325 [[place] 1 each PO Q4HR PRN 11/26/18 04/17/20 Unknown History 5-325 mg TAB] Hydrocortisone [Cortef TAB] 10 mg PO BID 11/26/18 04/17/20 Unknown History Insulin Glargine,Hum.rec.anlog 60 unit SQ QHS 11/26/18 04/17/20 Unknown History [Lantus Solostar] Insulin Glargine,Hum.rec.anlog See Protocol SUB-Q QACHS 11/26/18 04/17/20 Unknow n History [Lantus Solostar] Lasix TAB 20 mg PO BID 11/26/18 04/17/20 Unknown History Levothyroxine [Synthroid] 50 mcg PO QAM 11/26/18 04/17/20 11/24/18 08:00 History Lispro Insulin [HumaLOG] See Protocol SUB-Q ACHS 11/26/18 04/17/20 11/25/18 History Metoprolol [Lopressor TAB] 50 mg PO BID 11/26/18 04/17/20 Unknown History Mometasone 0.1% (Nf) 0.1 units TP BID 11/26/18 04/17/20 Unknown History Pantoprazole [Protonix TAB] 40 mg PO BID 11/26/18 04/17/20 Unknown History Petrolatum,White [Vaseline White 5 gm TP BID 11/26/18 04/17/20 Unknown History Petroleum] Pregabalin [Lyrica] 150 mg PO BID 11/26/18 04/17/20 11/25/18 08:00 History lamoTRIgine [LaMICtal] 25 mg PO BID 11/26/18 04/17/20 Unknown History ALBUTEROL NEB's [Proventil 0.083% 2.5 mg IH Q4HRT PRN nebu 05/20/19 04/17/20 Unknown Rx NEBS] Apixaban [Eliquis] 5 mg PO BID tablet 05/20/19 04/17/20 Unknown Rx AtorvaSTATin [Lipitor] 40 mg PO QDAY tablet 05/20/19 04/17/20 Unknown Rx Active Meds: Active Medications Acetaminophen (Acetaminophen 650 Mg Rect Supp) 650 mg MD Q6H PRN PRN Reason: Pain, Mild (1-3) Last Admin: 04/18/20 01:04 Dose: 650 mg Documented by: Hydrocodone Bitart/Acetaminophen (Hydrocodone/Acetaminophen 5-325 Mg Tab) 1 each PO Q4HR PRN PRN Reason: PAIN Albuterol (Albuterol 2.5 Mg/3 Ml Nebu) 2.5 mg IH Q4HRT PRN PRN Reason: Shortness Of Breath Amiodarone HCl (Amiodarone 200 Mg Tab) 200 mg PO BID [facility] Last Admin: 04/20/20 09:25 Dose: 200 mg Documented by: Aspirin (Aspirin 81 Mg Tab Chew) 81 mg PO QDAY [facility] Last Admin: 04/20/20 09:27 Dose: 81 mg Documented by: Atorvastatin Calcium (Atorvastatin 40 Mg Tab) 40 mg PO QHS [facility] Last Admin: 04/19/20 23:24 Dose: 40 mg Documented by: Cholecalciferol (Cholecalciferol (Vit D3) 1000 Unit (25 Mcg) Tab) 1,000 unit PO DAILY [facility] Last Admin: 04/20/20 09:26 Dose: 1,000 unit Documented by: Clopidogrel Bisulfate (Clopidogrel 75 Mg Tab) 75 mg PO QDAY [facility] Last Admin: 12/29/20 09:26 Dose: 75 mg Documented by: Heparin Sodium (Porcine) (Heparin 5,000 Unit/1 Ml Vial) 5,000 unit SUB-Q Q12HR [facility] Last Admin: 04/20/20 09:26 Dose: 5,000 unit Documented by: Hydrocortisone Acetate (Hydrocortisone 10 Mg Tab) 10 mg PO BID [facility] Last Admin: 04/20/20 09:25 Dose: 10 mg Documented by: Cefepime HCl (Cefepime/Ns 2 Gm/100 Ml) 2 gm in 100 mls @ 200 mls/hr IV Q8H [facility]; Protocol Last Admin: 04/20/20 10:58 Dose: 200 mls/hr Documented by: Vancomycin HCl 1,750 mg/ (Sodium Chloride) 535 mls @ 333.333 mls/hr IV Q12H [facility] Last Admin: 04/20/20 09:27 Dose: 333.333 mls/hr Documented by: Dextrose (D5w) 1,000 mls @ 100 mls/hr IV DIRECT VIOLETA Stop: 04/21/20 20:00 Last Admin: 04/19/20 13:09 Dose: 100 mls/hr Documented by: Insulin Glargine (Insulin Glargine 100 Units/Ml) 26 units SUB-Q QHS [facility] Last Admin: 04/19/20 23:23 Dose: 26 units Documented by: Insulin Human Lispro (Insulin Lispro 100 Unit/Ml Vial 3 Ml) 0 unit SUB-Q ACHS [facility]; Protocol Last Admin: 04/20/20 12:42 Dose: 4 unit Documented by: Lamotrigine (Lamotrigine 25 Mg Tab) 25 mg PO BID [facility] Last Admin: 04/20/20 09:25 Dose: 25 mg Documented by: Levothyroxine Sodium (Levothyroxine 50 Mcg Tab) 50 mcg PO DAILY@0600 [facility] Last Admin: 04/20/20 06:45 Dose: 50 mcg Documented by: Metoprolol Tartrate (Metoprolol Tartrate 50 Mg Tab) 50 mg PO TID [facility] Last Admin: 04/20/20 08:00 Dose: 50 mg Documented by: Nitroglycerin (Nitroglycerin 0.2 Mg Patch 24hr) 0.2 mg TD QDAY@0600 [facility]oprazole [facility] (P[facility] 40 Mg Tab) [facility] Pregabalin (Pregabalin 75 Mg Cap) 150 mg PO BID [facility] Last Admin: 04/20/20 09:26 Dose: 150 mg Documented by: Review of Systems ROS unobtainable: due to mental status Physical Examination - Vital Signs Vital Signs: Vital Signs Temp Pulse BP Pulse Ox 100.1 F H 103 H 98/54 92 04/16/20 19:34 04/16/20 19:34 04/16/20 19:34 04/16/20 19:34 - Physical Exam Narrative exam: Gen: nad, well-nourished; Head: normocephalic; Eyes: no gaze deviation; no ptosis; ENT: normal vocalization; Neck: +stiffness CVS: warm and well-perfused; Pulm: no respiratory distress; GI: non-distended, protuberant; Ext: no cyanosis at distal extremities; Skin: no acute rash at distal extremities; Neuro: obtunded, mute, aphasic, CN 2 - sluggishly reactive, visual mclaughlin intact, CN 3, 4, 6 - EOMI, CN 5 - opens eyes slightly to vocal stimuli; touch, CN 7 - symmetric at rest, CN 8 - hearing cannot be assessed, CN 9, 10 - no spontaneous swallow noted, CN 11/12 - pt cannot cooperate; Motor/Sensory - 0/5 to tactile stimuli; Cerebellar/Gait - pt cannot cooperate; (1a.) Level of Consciousness:2 (1b.) LOC Questions:2 (1c.) LOC Commands:2 (2.) Best Gaze:0 (3.) Visual:2 (4.) Facial Palsy:0 (5a.) Motor Arm, Left:4 (5b.) Motor Arm, Right:4 (6a.) Motor Leg, Left:4 (6b.) Motor Leg, Right:4 (7.) Limb Ataxia:0 (8.) Sensory:2 (9.) Best Language:3 (10.) Dysarthria:2 (11.) Extinction and Inattention:2 NIHSS Total Score: 33 GCS<8 Results - Laboratory Findings CBC and BMP: 04/20/20 05:19 04/20/20 05:19 Abnormal Lab Findings: Abnormal Labs 04/16/20 04/16/20 04/16/20 19:29 19:29 19:31 WBC MCV MCH RDW Plt Count Lymph % (Auto) [place] % (Auto) [place] # (Auto) Baso # (Auto) Seg Neutrophils % Seg Neuts % (Manual) Lymphocytes % (Manual) Monocytes % (Manual) Nucleated RBC % Seg Neutrophils # Seg Neutrophils # Man Monocytes # (Manual) PT 19.5 H INR 1.64 H APTT 43.3 H D-Dimer Sodium Potassium 5.3 H Chloride Carbon Dioxide 20 L BUN 49 H Creatinine 1.7 H Glucose 295 H POC Glucose 243 H Hemoglobin A1c Calcium Magnesium Ferritin ALT Alkaline Phosphatase Lactate Dehydrogenase Total Creatine Kinase Troponin T 0.067 H C-Reactive Protein Albumin Triglycerides 171 H Cholesterol 212 H LDL Cholesterol Direct 147 H HDL Cholesterol 35 L Vancomycin Trough 04/16/20 04/16/20 04/17/20 19:45 20:37 08:43 WBC 20.6 H MCV 75 L MCH 24 L RDW 15.6 H Plt Count 470 H Lymph % (Auto) [place] % (Auto) [place] # (Auto) Baso # (Auto) Seg Neutrophils % Seg Neuts % (Manual) 71.0 H Lymphocytes % (Manual) Monocytes % (Manual) 10.0 H Nucleated RBC % Seg Neutrophils # Seg Neutrophils # Man 14.6 H Monocytes # (Manual) 2.1 H PT INR APTT D-Dimer Sodium Potassium Chloride Carbon Dioxide BUN Creatinine Glucose POC Glucose 147 H Hemoglobin A1c Calcium Magnesium 2.70 H Ferritin ALT Alkaline Phosphatase Lactate Dehydrogenase Total Creatine Kinase 303 H Troponin T C-Reactive Protein Albumin Triglycerides Cholesterol LDL Cholesterol Direct HDL Cholesterol Vancomycin Trough 04/17/20 04/17/20 04/17/20 10:38 10:38 10:38 WBC MCV MCH RDW Plt Count Lymph % (Auto) [place] % (Auto) [place] # (Auto) Baso # (Auto) Seg Neutrophils % Seg Neuts % (Manual) Lymphocytes % (Manual) Monocytes % (Manual) Nucleated RBC % Seg Neutrophils # Seg Neutrophils # Man Monocytes # (Manual) PT INR APTT D-Dimer 1201.23 H Sodium Potassium Chloride Carbon Dioxide BUN Creatinine Glucose 172 H POC Glucose Hemoglobin A1c Calcium Magnesium Ferritin 99624.0 H ALT Alkaline Phosphatase Lactate Dehydrogenase 246 H Total Creatine Kinase Troponin T C-Reactive Protein 13.90 H Albumin Triglycerides Cholesterol LDL Cholesterol Direct HDL Cholesterol Vancomycin Trough 04/17/20 04/17/20 04/17/20 10:38 10:38 11:50 WBC 18.0 H MCV 75 L MCH 23 L RDW 15.9 H Plt Count Lymph % (Auto) [place] % (Auto) [place] # (Auto) Baso # (Auto) Seg Neutrophils % Seg Neuts % (Manual) 83.0 H Lymphocytes % (Manual) 11.0 L Monocytes % (Manual) Nucleated RBC % 1.0 H Seg Neutrophils # Seg Neutrophils # Man 14.9 H Monocytes # (Manual) 0.9 H PT INR APTT D-Dimer Sodium Potassium 5.2 H Chloride 107.3 H Carbon Dioxide 21 L BUN 44 H Creatinine Glucose 167 H POC Glucose 146 H Hemoglobin A1c Calcium 10.3 H Magnesium Ferritin ALT Alkaline Phosphatase Lactate Dehydrogenase Total Creatine Kinase Troponin T C-Reactive Protein Albumin Triglycerides Cholesterol LDL Cholesterol Direct HDL Cholesterol Vancomycin Trough 04/17/20 04/17/20 04/18/20 17:10 20:41 05:23 WBC MCV MCH RDW Plt Count Lymph % (Auto) [place] % (Auto) [place] # (Auto) Baso # (Auto) Seg Neutrophils % Seg Neuts % (Manual) Lymphocytes % (Manual) Monocytes % (Manual) Nucleated RBC % Seg Neutrophils # Seg Neutrophils # Man Monocytes # (Manual) PT INR APTT D-Dimer Sodium Potassium Chloride Carbon Dioxide BUN Creatinine Glucose POC Glucose 165 H 212 H Hemoglobin A1c 7.6 H Calcium Magnesium Ferritin ALT Alkaline Phosphatase Lactate Dehydrogenase Total Creatine Kinase Troponin T C-Reactive Protein Albumin Triglycerides Cholesterol LDL Cholesterol Direct HDL Cholesterol Vancomycin Trough 04/18/20 04/18/20 04/18/20 05:23 05:23 07:33 WBC 16.6 H MCV 76 L MCH 24 L RDW 15.9 H Plt Count Lymph % (Auto) 9.8 L [place] % (Auto) 12.9 H [place] # (Auto) 2.1 H Baso # (Auto) Seg Neutrophils % 75.7 H Seg Neuts % (Manual) Lymphocytes % (Manual) Monocytes % (Manual) Nucleated RBC % Seg Neutrophils # 12.6 H Seg Neutrophils # Man Monocytes # (Manual) PT INR APTT D-Dimer Sodium 148 H Potassium 5.5 H Chloride 114.3 H Carbon Dioxide 19 L BUN 31 H Creatinine Glucose 201 H POC Glucose 178 H Hemoglobin A1c Calcium Magnesium Ferritin ALT Alkaline Phosphatase Lactate Dehydrogenase Total Creatine Kinase Troponin T C-Reactive Protein Albumin Triglycerides Cholesterol LDL Cholesterol Direct HDL Cholesterol Vancomycin Trough 04/18/20 04/18/20 04/18/20 11:38 16:07 20:44 WBC MCV MCH RDW Plt Count Lymph % (Auto) [place] % (Auto) [place] # (Auto) Baso # (Auto) Seg Neutrophils % Seg Neuts % (Manual) Lymphocytes % (Manual) Monocytes % (Manual) Nucleated RBC % Seg Neutrophils # Seg Neutrophils # Man Monocytes # (Manual) PT INR APTT D-Dimer Sodium Potassium Chloride Carbon Dioxide BUN Creatinine Glucose POC Glucose 187 H 248 H 243 H Hemoglobin A1c Calcium Magnesium Ferritin ALT Alkaline Phosphatase Lactate Dehydrogenase Total Creatine Kinase Troponin T C-Reactive Protein Albumin Triglycerides Cholesterol LDL Cholesterol Direct HDL Cholesterol Vancomycin Trough 04/19/20 04/19/20 04/19/20 04:55 07:40 12:01 WBC MCV MCH RDW Plt Count Lymph % (Auto) [place] % (Auto) [place] # (Auto) Baso # (Auto) Seg Neutrophils % Seg Neuts % (Manual) Lymphocytes % (Manual) Monocytes % (Manual) Nucleated RBC % Seg Neutrophils # Seg Neutrophils # Man Monocytes # (Manual) PT INR APTT D-Dimer Sodium 152 H Potassium Chloride 117.2 H Carbon Dioxide BUN 27 H Creatinine Glucose 325 H POC Glucose 258 H 251 H Hemoglobin A1c Calcium Magnesium Ferritin ALT Alkaline Phosphatase Lactate Dehydrogenase Total Creatine Kinase Troponin T C-Reactive Protein Albumin Triglycerides Cholesterol LDL Cholesterol Direct HDL Cholesterol Vancomycin Trough 04/19/20 04/19/20 04/20/20 16:19 21:41 05:19 WBC 14.8 H MCV 77 L MCH 23 L RDW 16.5 H Plt Count Lymph % (Auto) [place] % (Auto) 13.6 H [place] # (Auto) 2.0 H Baso # (Auto) 0.2 H Seg Neutrophils % Seg Neuts % (Manual) Lymphocytes % (Manual) Monocytes % (Manual) Nucleated RBC % Seg Neutrophils # 10.2 H Seg Neutrophils # Man Monocytes # (Manual) PT INR APTT D-Dimer Sodium Potassium Chloride Carbon Dioxide BUN Creatinine Glucose POC Glucose 263 H 276 H Hemoglobin A1c Calcium Magnesium Ferritin ALT Alkaline Phosphatase Lactate Dehydrogenase Total Creatine Kinase Troponin T C-Reactive Protein Albumin Triglycerides Cholesterol LDL Cholesterol Direct HDL Cholesterol Vancomycin Trough 04/20/20 04/20/20 04/20/20 05:19 07:22 10:17 WBC MCV MCH RDW Plt Count Lymph % (Auto) [place] % (Auto) [place] # (Auto) Baso # (Auto) Seg Neutrophils % Seg Neuts % (Manual) Lymphocytes % (Manual) Monocytes % (Manual) Nucleated RBC % Seg Neutrophils # Seg Neutrophils # Man Monocytes # (Manual) PT INR APTT D-Dimer Sodium 154 H Potassium Chloride 119.6 H Carbon Dioxide BUN 24 H Creatinine Glucose 298 H POC Glucose 227 H Hemoglobin A1c Calcium Magnesium Ferritin ALT 58 H Alkaline Phosphatase 150 H Lactate Dehydrogenase Total Creatine Kinase Troponin T C-Reactive Protein Albumin 3.3 L Triglycerides Cholesterol LDL Cholesterol Direct HDL Cholesterol Vancomycin Trough 56.2 H 04/20/20 10:57 WBC MCV MCH RDW Plt Count Lymph % (Auto) [place] % (Auto) [place] # (Auto) Baso # (Auto) Seg Neutrophils % Seg Neuts % (Manual) Lymphocytes % (Manual) Monocytes % (Manual) Nucleated RBC % Seg Neutrophils # Seg Neutrophils # Man Monocytes # (Manual) PT INR APTT D-Dimer Sodium Potassium Chloride Carbon Dioxide BUN Creatinine Glucose POC Glucose 222 H Hemoglobin A1c Calcium Magnesium Ferritin ALT Alkaline Phosphatase Lactate Dehydrogenase Total Creatine Kinase Troponin T C-Reactive Protein Albumin Triglycerides Cholesterol LDL Cholesterol Direct HDL Cholesterol Vancomycin Trough Assessment and Plan 54 yo female with sarcoidosis, hypothyroidism, htn, dm, edmond, gerd, who presents with dyspnea, cough, noted bilateral frontal encephalomalacia on NCHCT, sepsis w/ resolving kidney failure, COVID-19 test negative, paroxysmal afib, and continued encephalopathy. 1. Acute Ischemic Stroke - ASA 325 mg PO qday, MRI Brain w/ wo contrast, MRA Head w/o contrast and MRA Neck w/ & w/o contrast, confirm LDL/HgbA1C/TSH, telemetry, SBP goal 160-200 mmHg and DBP 80-100 mmHg for now. Statin therapy for a goal LDL of 70, when patient passes swallow evaluation. PT/OT/ST/Swallow evaluation. Long-term risk-factor modification, including a strict diet/exercise regimen for secondary stroke prophylaxis. Long-term anticoagulation for stroke prophylaxis, in the setting of paroxysmal afib if no contraindications. 2. Seizure - confirm with EEG. 3. Metabolic Encephalopathy - agree with CSF evaluation including opening pressure and CSF-JOSSELIN level; appreciate ID input. 4. Neursarcoidosis - confirm w/ MRI Brain, C-spine, T-spine w/ wo contrast and CSF studies. 5. GCS<8 - concern for airway protection is raised and RN at bedside is notified. Warren Martinez MD Neurology
--- NOTE | 2020-04-20 14:56 | Progress Note ---
Assessment and Plan Cultures: Blood culture 04/16/2020 no growth today. SARS-CoV-2 PCR negative. Assessment: 54 years old female with morbid obesity, JANI, PUD, hyperlipidemia, diabetes mellitus, hypertension, GERD, peripheral neuropathy, ? Meningioma status post craniotomy, previous coagulase-negative staph bacteremia and abdominal wall abscess, admitted on 04/16/2020 after being found unresponsive and diaphoretic at home: #SIRS rule out sepsis: present on admission with fever, leukocytosis, tachycardia, hypotension; unclear source. ? Abdominal wall cellulitis. Chest x-ray unremarkable. Urinalysis negative. Elevated procalcitonin in the setting of JOEL. SARS-CoV-2 PCR negative. #Abdominal wall cellulitis?/deep abdominal folds with maceration: Patient history of abdominal wall abscess #Right fifth toe wound: Noninfected? #JOEL: Improved #Diabetes mellitus uncontrolled #Encephalopathy: Patient found unresponsive. At baseline she is bedbound. Neurology also on board. #Supratherapeutic vancomycin level: Drawn incorrectly. Creatinine normal Recommendations: -Continue cefepime and vancomycin for now -Follow-up lumbar puncture and CSF analysis to rule out meningitis/encephalitis, patient with history of craniotomy -Monitor WBC Dejuan Mejia MD, FACP [facility] O: [phone] F: [phone] Subjective Date of service: 04/20/20 Principal diagnosis: Elevated cardiac enzymes Interval history: No fever. Remains encephalopathic, nonverbal. Objective - Exam Narrative Exam: Physical Exam: Constitutional: Encephalopathic, non verbal, does not follow commands Head, Ears, Nose: Normocephalic, atraumatic. External ears, nose normal Eyes: Conjunctivae/corneas clear. No icterus. No ptosis. Neck: Supple, no meningeal signs Oral: Unable to examine Cardiovascular: S1, S2 normal. Respiratory: Good air entry, clear to auscultation bilaterally GI: Soft, obese, large pannus, non-tender; bowel sounds + Musculoskeletal: trace pedal edema Skin: No rash or abscess Hem/Lymphatic: No palpable cervical or supraclavicular nodes. No lymphangitis Psych: No agitation Neurological: encephalopathic, non verbal - Constitutional Vitals: Vital Signs Temp Pulse Resp BP Pulse Ox 98.0 F 86 18 110/64 98 04/20/20 08:19 04/20/20 10:00 04/20/20 08:19 04/20/20 08:19 04/20/20 10:00 Temperature -Last 24 Hours Temperature 98.0 F Temperature 99.0 F Temperature 98.0 F Temperature 98 F Temperature 99.8 F - Labs CBC & Chem 7: 04/20/20 05:19 04/20/20 05:19 Labs: Abnormal lab results 04/19/20 04/19/20 04/20/20 Range/Units 16:19 21:41 05:19 WBC 14.8 H (4.5-11.0) K/mm3 MCV 77 L (79-97) fl MCH 23 L (28-32) pg RDW 16.5 H (13.2-15.2) % [place] % (Auto) 13.6 H (0.0-7.3) % [place] # (Auto) 2.0 H (0.0-0.8) K/mm3 Baso # (Auto) 0.2 H (0.0-0.1) K/mm3 Seg Neutrophils # 10.2 H (1.8-7.7) K/mm3 Sodium (137-145) mmol/L Chloride (98-107) mmol/L BUN (7-17) mg/dL Glucose (65-100) mg/dL POC Glucose 263 H 276 H (70-105) mg/dL ALT (7-56) units/L Alkaline Phosphatase (35-129) units/L Albumin (3.9-5) g/dL Vancomycin Trough (5.0-20.0) ug/mL 04/20/20 04/20/20 04/20/20 Range/Units 05:19 07:22 10:17 WBC (4.5-11.0) K/mm3 MCV (79-97) fl MCH (28-32) pg RDW (13.2-15.2) % [place] % (Auto) (0.0-7.3) % [place] # (Auto) (0.0-0.8) K/mm3 Baso # (Auto) (0.0-0.1) K/mm3 Seg Neutrophils # (1.8-7.7) K/mm3 Sodium 154 H (137-145) mmol/L Chloride 119.6 H (98-107) mmol/L BUN 24 H (7-17) mg/dL Glucose 298 H (65-100) mg/dL POC Glucose 227 H (70-105) mg/dL ALT 58 H (7-56) units/L Alkaline Phosphatase 150 H (35-129) units/L Albumin 3.3 L (3.9-5) g/dL Vancomycin Trough 56.2 H (5.0-20.0) ug/mL // Range/Units 10:57 WBC (4.5-11.0) K/mm3 MCV (79-97) fl MCH (28-32) pg RDW (13.2-15.2) % [place] % (Auto) (0.0-7.3) % [place] # (Auto) (0.0-0.8) K/mm3 Baso # (Auto) (0.0-0.1) K/mm3 Seg Neutrophils # (1.8-7.7) K/mm3 Sodium (137-145) mmol/L Chloride (98-107) mmol/L BUN (7-17) mg/dL Glucose (65-100) mg/dL POC Glucose 222 H (70-105) mg/dL ALT (7-56) units/L Alkaline Phosphatase (35-129) units/L Albumin (3.9-5) g/dL Vancomycin Trough (5.0-20.0) ug/mL
[2020-04-20] MEDS ORDERED: fentaNYL 100 MCG/2 ML INJ IV PRN (16:32)
[2020-04-20] MEDS ORDERED: LIP THERAPY VASELINE TP PRN (16:32)
[2020-04-20] MEDS ORDERED: MINERAL OIL/PETROLATUM, WHITE OPHTH OINT 3.5 GM OU PRN (16:32)
[2020-04-20] MEDS ORDERED: fentaNYL DRIP Premix 2,000 MCG/100 ML BAG IV SCH (17:00)
[2020-04-20] MEDS ORDERED: SODIUM CHLORIDE 0.9% 1000 ML 1,000 ML ONE (17:07)
[2020-04-20] MEDS ORDERED: NORepinephrine/NS 4 MG-250 ML 4 MG/250 ML BAG IV ONE (17:29)
[2020-04-20] MEDS: NORepinephrine/NS 4 MG-250 ML 4 MG/250 ML BAG IV SCH (17:30)
--- NOTE | 2020-04-20 17:52 | Event Note ---
Date: 04/20/20 Called by hospitalist, Dr Zaman, requesting central line placement for hypotension. Right femoral triple-lumen placed. Area prepped with chlo rhexidine scrub. Ultrasound not used for placement. Triple-lumen central line was placed. Only able to aspirate and flush the port with the brown cap. No other complications present. Nurse at bedside and she was notified of this. Line sutured in place with nylon. Sterile dressing applied
[2020-04-20] MEDS ORDERED: SODIUM CHLORIDE 0.9% 1000 ML 500 ML IV ONE (18:09)
--- NOTE | 2020-04-20 19:13 | XRay Report ---
ABDOMEN 1 VIEW 04/20/2020 6:33 PM INDICATION / CLINICAL INFORMATION: NGT PLACEMENT. COMPARISON: None available. FINDINGS: TUBES / LINES: Esophagogastric tube present in the proximal stomach. BOWEL GAS PATTERN: Nonobstructed colon within a left abdominal wall hernia. FREE AIR / EXTRALUMINAL GAS: None. ADDITIONAL FINDINGS: No significant additional findings. IMPRESSION: 1. Esophagogastric tube in expected position. Signer Name: Otoniel Simmons MD Signed: 04/20/2020 7:08 PM Workstation Name: [id number]
--- NOTE | 2020-04-20 19:14 | XRay Report ---
CHEST 1 VIEW 04/20/2020 6:36 PM INDICATION / CLINICAL INFORMATION: ETT placement. COMPARISON: 04/16/2020 and 05/16/2019 FINDINGS: SUPPORT DEVICES: Endotracheal and esophagogastric tubes in expected position. HEART / MEDIASTINUM: Heart is normal size and stable. LUNGS / PLEURA: Chronic streaky bibasilar densities are unchanged. No pneumothorax. ADDITIONAL FINDINGS: No significant additional findings. IMPRESSION: 1. Endotracheal tube in expected position. Signer Name: Otoniel Simmons MD Signed: 04/20/2020 7:09 PM Workstation Name: [id number]
[2020-04-20] MEDS: INSULIN GLARGINE 100 UNITS/ML SUB-Q SCH (21:59)
[2020-04-21] MEDS: NORepinephrine/NS 4 MG-250 ML 4 MG/250 ML BAG IV SCH (01:24)
[2020-04-21] MEDS: CEFEPIME/NS 2 GM/100 ML 2 GM/100 ML BAG IV SCH ×4 (02:34→17:45)
[2020-04-21] MEDS: PANTOPRAZOLE 40 MG TAB PO SCH ×2 (03:02→06:33)
[2020-04-21] MEDS: INSULIN LISPRO 100 UNIT/ML VIAL 3 mL SUB-Q SCH ×4 (03:02→18:54)
[2020-04-21] MEDS: NITROGLYCERIN 0.2 MG PATCH 24HR TD SCH (05:28)
[2020-04-21] MEDS: LEVOTHYROXINE 50 MCG TAB PO SCH (05:28)
[2020-04-21 05:45] LABS: Mean Corpuscular HGB Conc 29 % (30-34); Mean Corpuscular Volume 76 fl (79-97); Platelet Count 462 K/mm3 (140-440); Red Blood Count 4.37 M/mm3 (3.65-5.03); Red Cell Distribution Width 16.6 % (13.2-15.2)
[2020-04-21 05:50] LABS: Hematocrit 33.3 % (30.3-42.9); Hemoglobin 9.7 gm/dl (10.1-14.3)
[2020-04-21 06:05] LABS: Albumin 3.2 g/dL (3.9-5); Calcium 9.3 mg/dL (8.4-10.2)
[2020-04-21 06:44] LABS: Anisocytosis Few; Hypochromasia 1+; Schistocytes Few; Total Cells Counted 100
[2020-04-21 06:45] LABS: Platelet Estimate Consistent w Auto
[2020-04-21] MEDS ORDERED: POTASSIUM CHLORIDE 20 MEQ 20 MEQ/100 ML BAG IV ONE (08:00)
--- NOTE | 2020-04-21 08:30 | Progress Note ---
Assessment and Plan 1. Acute kidney injury: Vasomotor JOEL in the setting of hypotension. Urine studies ordered. Spoke to multiple nurse to send sample. Monitor renal function. Increase in BUN and Creatinine level noted. Avoid nephrotoxic agents. Meds dosage based on GFR. 2. FEN: Metabolic acidosis, improved, monitor. Hypokalemia, replete K, monitor. Hypernatremia, continue IV D5W, monitor. Unlikely DI, Ur Osm ordered. Asked the RN again to send Urine sample. Monitor lytes. 3. Acute metabolic encephalopathy: MRI pending. 4. Acute hypoxic resp failure: Currently intubated, on vent. Monitor. 5. Sepsis: On IV Cefepime and Vancomycin. Followed by ID. 6. Elevated troponin: Seen by Cardiology. 7. DM Type 2. 8. H/o Seizures. 9. H/o Meningioma resection. 10. Sleep apnea. Subjective: Patient was seen and examined at the bedside. Patient moved to ICU with hypotension. Examination: General appearance: well-developed, well-nourished, appears stated age, obese, intubated on vent HEENT: ATNC, KOURTNEY, scalp surgical scar Neck: Trachea midline Respiratory: Clear to Auscultation Cardiology: regular, S1S2, no murmur Abdomen: soft, normoactive bowel sounds, not tender Integumentary: no obvious, rash Neurologic: not responding Ext: trace edema of both LEs noted : kent catheter Subjective Date of service: 04/21/20 Principal diagnosis: Elevated cardiac enzymes Objective - Vital Signs Vital signs: Vital Signs - 12hr 04/20/20 04/20/20 04/20/20 20:30 20:45 21:00 Temperature Pulse Rate 71 71 72 Respiratory 18 18 18 Rate Blood Pressure 109/59 111/62 112/64 O2 Sat by Pulse 100 100 100 Oximetry 04/20/20 04/20/20 04/20/20 21:15 21:30 21:45 Temperature Pulse Rate 71 71 70 Respiratory 19 18 15 Rate Blood Pressure 120/67 114/66 117/66 O2 Sat by Pulse 96 98 100 Oximetry 04/20/20 04/20/20 04/20/20 22:00 22:15 22:20 Temperature Pulse Rate 72 71 72 Respiratory 18 14 18 Rate Blood Pressure 120/70 125/66 125/66 O2 Sat by Pulse 98 98 93 Oximetry 12/04/20/20 04/20/20 22:30 22:31 22:45 Temperature Pulse Rate 72 71 72 Respiratory 18 18 18 Rate Blood Pressure 124/65 124/65 120/63 O2 Sat by Pulse 100 100 99 Oximetry 04/20/20 04/20/20 04/20/20 22:52 23:00 23:15 Temperature Pulse Rate 73 74 72 Respiratory 13 17 18 Rate Blood Pressure 120/63 108/60 111/59 O2 Sat by Pulse 100 100 100 Oximetry 04/20/20 04/20/20 04/21/20 23:30 23:45 00:00 Temperature 99.4 F Pulse Rate 71 70 72 Respiratory 18 18 16 Rate Blood Pressure 112/63 111/60 112/60 O2 Sat by Pulse 100 100 98 Oximetry 04/21/20 04/21/20 04/21/20 00:15 00:30 00:37 Temperature Pulse Rate 71 71 70 Respiratory 12 15 Rate Blood Pressure 114/65 120/66 120/66 O2 Sat by Pulse 100 100 99 Oximetry 04/21/20 04/21/20 04/21/20 00:45 01:00 01:15 Temperature Pulse Rate 71 73 70 Respiratory 18 17 18 Rate Blood Pressure 119/66 104/57 108/54 O2 Sat by Pulse 100 100 100 Oximetry 04/21/20 04/21/20 04/21/20 01:30 01:45 02:00 Temperature Pulse Rate 70 76 75 Respiratory 18 18 18 Rate Blood Pressure 101/56 106/53 93/52 O2 Sat by Pulse 100 100 100 Oximetry 04/21/20 04/21/20 04/21/20 02:16 02:30 02:46 Temperature Pulse Rate 80 71 71 Respiratory 18 17 18 Rate Blood Pressure 84/47 105/62 126/65 O2 Sat by Pulse 100 100 100 Oximetry 04/21/20 04/21/20 04/21/20 03:00 03:15 03:30 Temperature Pulse Rate 70 70 72 Respiratory 18 18 18 Rate Blood Pressure 116/62 97/52 108/60 O2 Sat by Pulse 100 100 100 Oximetry 04/21/20 04/21/20 04/21/20 03:45 04:00 04:02 Temperature 99.1 F Pulse Rate 73 73 72 Respiratory 18 18 Rate Blood Pressure 109/58 116/58 116/58 O2 Sat by Pulse 100 100 100 Oximetry 1204/21/20 04/21/20 04:15 04:30 04:45 Temperature Pulse Rate 71 69 68 Respiratory 18 18 13 Rate Blood Pressure 114/56 115/61 116/62 O2 Sat by Pulse 100 100 100 Oximetry 04/21/20 04/21/20 04/21/20 05:00 05:15 05:30 Temperature Pulse Rate 69 67 84 Respiratory 18 18 21 Rate Blood Pressure 111/61 115/63 117/68 O2 Sat by Pulse 100 100 100 Oximetry 04/21/20 04/21/20 04/21/20 05:45 06:00 06:15 Temperature Pulse Rate 81 79 77 Respiratory 22 22 21 Rate Blood Pressure 114/63 123/60 124/61 O2 Sat by Pulse 95 100 100 Oximetry - Lab 04/21/20 05:24 04/21/20 05:24 Most recent lab results ABG pH 7.344 (7.320-7.450) 04/21/20 03:45 Calcium 9.3 mg/dL (8.4-10.2) 04/21/20 05:24 Phosphorus 3.30 mg/dL (2.5-4.5) 04/20/20 05:19 Magnesium 2.70 mg/dL (1.7-2.3) H 04/16/20 19:45 Medications & Allergies - Medications Allergies/Adverse Reactions: Allergies erythromycin base [From Erythrocin] Allergy (Verified 11/26/18 06:03) Itching Penicillins Allergy (Verified 11/26/18 06:02) Rash Home Medications: Home Medications Medication Instructions Recorded Confirmed Last Taken Type Atorvastatin Calcium 40 mg PO BID 11/26/18 04/17/20 11/25/18 08:00 History Cholecalciferol Vit D3 [Vitamin D3 1,000 1000units PO QDAY 11/26/18 04/17/20 11/25/18 08:00 History 1,000 UNIT TAB] HYDROcodone/APAP 5-325 [[place] 1 each PO Q4HR PRN 11/26/18 04/17/20 Unknown History 5-325 mg TAB] Hydrocortisone [Cortef TAB] 10 mg PO BID 11/26/18 04/17/20 Unknown History Insulin Glargine,Hum.rec.anlog 60 unit SQ QHS 11/26/18 04/17/20 Unknown History [Lantus Solostar] Insulin Glargine,Hum.rec.anlog See Protocol SUB-Q QACHS 11/26/18 04/17/20 Unknown History [Lantus Solostar] Lasix TAB 20 mg PO BID 11/26/18 04/17/20 Unknown History Levothyroxine [Synthroid] 50 mcg PO QAM 11/26/18 04/17/20 11/24/18 08:00 History Lispro Insulin [HumaLOG] See Protocol SUB-Q ACHS 11/26/18 04/17/20 11/25/18 History Metoprolol [Lopressor TAB] 50 mg PO BID 11/26/18 04/17/20 Unknown History Mometasone 0.1% (Nf) 0.1 units TP BID 11/26/18 04/17/20 Unknown History Pantoprazole [Protonix TAB] 40 mg PO BID 11/26/18 04/17/20 Unknown History Petrolatum,White [Vaseline White 5 gm TP BID 11/26/18 04/17/20 Unknown History Petroleum] Pregabalin [Lyrica] 150 mg PO BID 11/26/18 04/17/20 11/25/18 08:00 History lamoTRIgine [LaMICtal] 25 mg PO BID 11/26/18 04/17/20 Unknown History ALBUTEROL NEB's [Proventil 0.083% 2.5 mg IH Q4HRT PRN nebu 05/20/19 04/17/20 Unknown Rx NEBS] Apixaban [Eliquis] 5 mg PO BID tablet 05/20/19 04/17/20 Unknown Rx AtorvaSTATin [Lipitor] 40 mg PO QDAY tablet 05/20/19 04/17/20 Unknown Rx Active Medications: Generic Name Dose Route Start Last Admin Trade Name Freq PRN Reason Stop Dose Admin Acetaminophen 650 mg 04/17/20 23:57 04/18/20 01:04 Acetaminophen 650 Mg Rect Supp [place] 650 mg Q6H PRN Administration Pain, Mild (1-3) Hydrocodone Bitart/Acetaminophen 1 each 04/17/20 10:00 Hydrocodone/Acetaminophen 5-325 Mg Tab PO Q4HR PRN PAIN Albuterol 2.5 mg 04/17/20 08:00 Albuterol 2.5 Mg/3 Ml Nebu IH Q4HRT PRN Shortness Of Breath Amiodarone HCl 200 mg 04/19/20 13:00 04/20/20 21:59 Amiodarone 200 Mg Tab PO Not Given BID VIOLETA Aspirin 81 mg 04/19/20 13:00 04/20/20 09:27 Aspirin 81 Mg Tab Chew PO 81 mg QDAY VIOLETA Administration Atorvastatin Calcium 40 mg 04/17/20 22:00 04/20/20 21:59 Atorvastatin 40 Mg Tab PO Not Given QHS VIOLETA Cholecalciferol 1,000 unit 04/17/20 14:00 04/20/20 09:26 Cholecalciferol (Vit D3) 1000 Unit (25 Mcg) Tab PO 1,000 unit DAILY VIOLETA Administration Clopidogrel Bisulfate 75 mg 04/20/20 10:00 04/20/20 09:26 Clopidogrel 75 Mg Tab PO 75 mg QDAY VIOLETA Administration Heparin Sodium (Porcine) 5,000 unit 04/19/20 13:00 04/20/20 22:55 Heparin 5,000 Unit/1 Ml Vial SUB-Q 5,000 unit Q12HR VIOLETA Administration Hydrocortisone Acetate 10 mg 04/17/20 10:00 04/20/20 21:59 Hydrocortisone 10 Mg Tab PO Not Given BID VIOLETA Hydrophilic Ointment 1 applic 04/20/20 16:32 Lip Therapy Vaseline TP Q2HR PRN Dry Lips Dextrose 1,000 mls @ 100 mls/hr 04/19/20 13:00 04/19/20 13:09 D5w IV 04/21/20 20:00 100 mls/hr DIRECT VIOLETA Administration Norepinephrine 4 mg in 250 mls @ 7.5 mls/hr 04/20/20 19:00 04/21/20 01:24 Levophed Drip 4 Mg/Ns 250 Ml IV 4 mcg/min TITR VIOLETA 15 mls/hr Administration Protocol 2 MCG/MIN Cefepime HCl 2 gm in 100 mls @ 200 mls/hr 04/21/20 10:00 Cefepime/Ns 2 Gm/100 Ml IV Q8H VIOLETA Potassium Chloride 20 meq in 100 mls @ 100 mls/hr 04/21/20 08:00 Kcl 20meq/100ml IV 04/21/20 08:59 ONCE ONE Insulin Glargine 26 units 04/19/20 22:00 04/20/20 21:59 Insulin Glargine 100 Units/Ml SUB-Q Not Given QHS [facility] Insulin Human Lispro 0 unit 04/17/20 11:30 04/21/20 06:32 Insulin Lispro 100 Unit/Ml Vial 3 Ml SUB-Q Not Given ACHS [facility] Protocol Lamotrigine 25 mg 04/17/20 10:00 04/20/20 21:59 Lamotrigine 25 Mg Tab PO Not Given BID [facility] Levothyroxine Sodium 50 mcg 04/17/20 10:00 04/21/20 05:28 Levothyroxine 50 Mcg Tab PO Not Given DAILY@0600 [facility] Metoprolol Tartrate 50 mg 04/19/20 14:00 04/20/20 20:39 Metoprolol Tartrate 50 Mg Tab PO Not Given TID [facility] Multi-Ingred Cream/Lotion/Oil/Oint 1 applic 04/20/20 16:32 Mineral Oil/Petrolatum, White Ophth Oint 3.5 Gm OU Q4HR PRN Dry Eye(s) Nitroglycerin 0.2 mg 04/21/20 06:00 04/21/20 05:28 Nitroglycerin 0.2 Mg Patch 24hr TD Not Given QDAY@0600 [facility] Pantoprazole Sodium 40 mg 04/21/20 10:00 Pantoprazole 40 Mg Inj IV BID [facility] Pregabalin 150 mg 04/17/20 10:00 04/20/20 21:59 Pregabalin 75 Mg Cap PO Not Given BID [facility]
--- NOTE | 2020-04-21 09:05 | XRay Report ---
CHEST 1 VIEW 04/21/2020 7:50 AM INDICATION / CLINICAL INFORMATION: follow up respiratory failure. COMPARISON: 04/20/2020 FINDINGS: SUPPORT DEVICES: Support lines and tubes again project in expected position HEART / MEDIASTINUM: Cardiac silhouette remains enlarged. There is fullness of the superior mediastin um suggestive for possible adenopathy. LUNGS / PLEURA: Streaky airspace disease both lower lung mclaughlin again noted. No pneumothorax. ADDITIONAL FINDINGS: No significant additional findings. IMPRESSION: 1. Stable chest. 2. Fullness of superior mediastinum may be secondary to AP technique, however, follow-up PA and later al x-ray or CT chest is recommended when patient's clinical and condition improves in order to exclud e underlying adenopathy Signer Name: Doyle Phillips MD Signed: 04/21/2020 9:00 AM Workstation Name: [id number]
[2020-04-21] MEDS: METOPROLOL TARTRATE 50 MG TAB PO SCH ×3 (09:21→20:11)
[2020-04-21] MEDS: AMIODARONE 200 MG TAB PO SCH ×2 (09:22→23:48)
[2020-04-21] MEDS: ASPIRIN 81 MG TAB CHEW PO SCH (09:25)
[2020-04-21] MEDS: PREGABALIN 75 MG CAP PO SCH ×2 (09:26→23:46)
[2020-04-21] MEDS: CHOLECALCIFEROL (VIT D3) 1000 UNIT (25 mcg) TAB PO SCH (09:26)
[2020-04-21] MEDS: CLOPIDOGREL 75 MG TAB PO SCH (09:26)
[2020-04-21] MEDS: PANTOPRAZOLE 40 MG INJ IV SCH ×2 (09:27→23:46)
[2020-04-21 09:30] LABS: INR 1.12 (0.87-1.13)
--- NOTE | 2020-04-21 12:10 | Progress Note ---
Assessment and Plan Cultures: Blood culture 04/16/2020 no growth today. SARS-CoV-2 PCR negative. Assessment: 54 years old female with morbid obesity, JANI, PUD, hyperlipidemia, diabetes mellitus, hypertension, GERD, peripheral neuropathy, ? Meningioma status post craniotomy, previous coagulase-negative staph bacteremia and abdominal wall abscess, admitted on 04/16/2020 after being found unresponsive and diaphoretic at home: #Severe sepsis: present on admission with fever, leukocytosis, tachycardia, hypotension; unclear source. ? Abdominal wall cellulitis. Chest x-ray unremarkable. Urinalysis negative. Elevated procalcitonin in the setting of JOEL. SARS-CoV-2 PCR negative. #Abdominal wall cellulitis?/deep abdominal folds with maceration: Patient history of abdominal wall abscess. #Right fifth toe wound: Noninfected? #JOEL: Improved #Diabetes mellitus uncontrolled #Encephalopathy: Patient found unresponsive. At baseline she is bedbound. Neurology also on board. Recommendations: -Continue IV Cefepime and Vancomycin -Consider CT abdomen and pelvis with contrast to look for source of infection -Follow-up lumbar puncture and CSF analysis to rule out meningitis/encephalitis, patient with history of craniotomy Dejuan Mejia MD, FACP [facility] O: [phone] F: [phone] Subjective Date of service: 04/21/20 Principal diagnosis: Elevated cardiac enzymes Interval history: Patient had code MET yesterday, was intubated, transferred to ICU. She was also noted to be hypotensive, has femoral central line placed and initiated on pressors. She otherwise has been afebrile. She is currently awake, in termittently following commands. Objective - Exam Narrative Exam: Physical Exam: Constitutional: Awake, occasionally following commands, intubated, on the vent Head, Ears, Nose: Normocephalic, atraumatic. External ears, nose normal Eyes: Conjunctivae/corneas clear. No icterus. No ptosis. Neck: intubated Oral: intubated Cardiovascular: S1, S2 + Respiratory: AE fair bilaterally and equal GI: Soft, obese, large pannus, non-tender; bowel sounds + Musculoskeletal: trace pedal edema. Skin: No rash or abscess Hem/Lymphatic: No palpable cervical or supraclavicular nodes. No lymphangitis Psych: no agitation Neurological: Awake, occasionally following commands, intubated, on the vent, exam limited - Constitutional Vitals: Vital Signs Temp Pulse Resp BP Pulse Ox 98.7 F 84 27 H 109/55 100 04/21/20 08:00 04/21/20 11:49 04/21/20 11:49 04/21/20 11:30 04/21/20 11:49 Temperature -Last 24 Hours Temperature 98.7 F Temperature 99.1 F Temperature 99.4 F Temperature 98.0 F - Labs CBC & Chem 7: 04/21/20 05:24 04/21/20 05:24 Labs: Abnormal lab results 04/20/20 04/20/20 04/20/20 Range/Units 16:05 16:15 18:17 WBC (4.5-11.0) K/mm3 Hgb (10.1-14.3) gm/dl MCV (79-97) fl MCH (28-32) pg MCHC (30-34) % RDW (13.2-15.2) % Plt Count (140-440) K/mm3 Seg Neuts % (Manual) (40.0-70.0) % Monocytes % (Manual) (0.0-7.3) % Seg Neutrophils # Man (1.8-7.7) K/mm3 Monocytes # (Manual) (0.0-0.8) K/mm3 ABG pH 7.286 L (7.320-7.450) POC ABG pO2 137.2 H (83-108) mmHg ABG Hemoglobin 11.1 L (12.0-17.5) ABG Sodium 153.2 H (136.0-145.0) mmol/L ABG Potassium (3.40-4.50) mmol/L ABG Chloride 121.0 H (98-107) mmol/L ABG Glucose 256 H (65-95) mg/dL Sodium 156 H (137-145) mmol/L Potassium (3.6-5.0) mmol/L Chloride 122.0 H (98-107) mmol/L Carbon Dioxide (22-30) mmol/L BUN 26 H (7-17) mg/dL Creatinine 1.4 H D (0.6-1.2) mg/dL Glucose 226 H (65-100) mg/dL POC Glucose 183 H (70-105) mg/dL Alkaline Phosphatase (35-129) units/L Albumin (3.9-5) g/dL Arterial Blood Glucose 256 H (65-95) mg/dL Random Vancomycin (0-40.0) ug/mL 04/21/20 04/21/20 04/21/20 Range/Units 03:45 05:24 05:24 WBC 14.9 H (4.5-11.0) K/mm3 Hgb 9.7 L (10.1-14.3) gm/dl MCV 76 L (79-97) fl MCH 22 L (28-32) pg MCHC 29 L (30-34) % RDW 16.6 H (13.2-15.2) % Plt Count 462 H (140-440) K/mm3 Seg Neuts % (Manual) 71.0 H (40.0-70.0) % Monocytes % (Manual) 12.0 H (0.0-7.3) % Seg Neutrophils # Man 10.6 H (1.8-7.7) K/mm3 Monocytes # (Manual) 1.8 H (0.0-0.8) K/mm3 ABG pH (7.320-7.450) POC ABG pO2 145.5 H (83-108) mmHg ABG Hemoglobin 10.6 L (12.0-17.5) ABG Sodium 153.1 H (136.0-145.0) mmol/L ABG Potassium 3.2 L (3.40-4.50) mmol/L ABG Chloride 120.0 H (98-107) mmol/L ABG Glucose 223 H (65-95) mg/dL Sodium 154 H (137-145) mmol/L Potassium 3.4 L (3.6-5.0) mmol/L Chloride 121.3 H (98-107) mmol/L Carbon Dioxide 19 L D (22-30) mmol/L BUN 28 H (7-17) mg/dL Creatinine 1.3 H (0.6-1.2) mg/dL Glucose 230 H (65-100) mg/dL POC Glucose (70-105) mg/dL Alkaline Phosphatase 136 H (35-129) units/L Albumin 3.2 L (3.9-5) g/dL Arterial Blood Glucose 223 H (65-95) mg/dL Random Vancomycin (0-40.0) ug/mL 04/21/20 Range/Units 09:00 WBC (4.5-11.0) K/mm3 Hgb (10.1-14.3) gm/dl MCV (79-97) fl MCH (28-32) pg MCHC (30-34) % RDW (13.2-15.2) % Plt Count (140-440) K/mm3 Seg Neuts % (Manual) (40.0-70.0) % Monocytes % (Manual) (0.0-7.3) % Seg Neutrophils # Man (1.8-7.7) K/mm3 Monocytes # (Manual) (0.0-0.8) K/mm3 ABG pH (7.320-7.450) POC ABG pO2 (83-108) mmHg ABG Hemoglobin (12.0-17.5) ABG Sodium (136.0-145.0) mmol/L ABG Potassium (3.40-4.50) mmol/L ABG Chloride (98-107) mmol/L ABG Glucose (65-95) mg/dL Sodium (137-145) mmol/L Potassium (3.6-5.0) mmol/L Chloride (98-107) mmol/L Carbon Dioxide (22-30) mmol/L BUN (7-17) mg/dL Creatinine (0.6-1.2) mg/dL Glucose (65-100) mg/dL POC Glucose (70-105) mg/dL Alkaline Phosphatase (35-129) units/L Albumin (3.9-5) g/dL Arterial Blood Glucose (65-95) mg/dL Random Vancomycin 41.4 H (0-40.0) ug/mL - Imaging and cardiology Chest x-ray: report reviewed, image reviewed (ET tube +, no pneumonia seen)
[2020-04-21] MEDS: HEPARIN 5,000 UNIT/1 ML VIAL SUB-Q SCH ×2 (12:35→23:47)
[2020-04-21] MEDS: lamoTRIgine 25 MG TAB PO SCH ×2 (14:00→23:47)
[2020-04-21] MEDS: HYDROCORTISONE 10 MG TAB PO SCH ×2 (14:00→23:46)
--- NOTE | 2020-04-21 14:09 | Progress Note ---
Assessment and Plan Patient admitted with altered mental status, infected diabetic ulcer, possible abdominal cellulitis, sepsis, morbid obesity and respiratory failure. Cardiac status was notable for transient inferior injury pattern, resolved on subsequent ECGs. Due to multiple severe comorbidities, patient is not a candidate for aggressive invasive cardiac therapies, underlying coronary artery disease recommended for medical management. Prognosis is poor in the setting of multiple severe acute comorbidities. Subjective Date of service: 04/21/20 Principal diagnosis: Elevated cardiac enzymes Interval history: Patient developed sepsis, respiratory failure and hypotension requiring intubation, currently in the ICU stepdown unit on the vent mercury cell cleaner shows a normal sinus rhythm at 80. Objective Vital Signs Temp Pulse Resp BP Pulse Ox 04/21/20 12:00 20 100 04/21/20 11:49 84 27 H 100 04/21/20 11:30 75 21 109/55 100 04/21/20 11:15 75 21 104/54 100 04/21/20 11:00 81 26 H 107/58 100 04/21/20 10:45 83 22 107/54 100 04/21/20 10:30 77 25 H 116/57 100 04/21/20 10:15 76 25 H 108/61 100 04/21/20 10:00 84 24 108/62 100 04/21/20 09:46 82 18 110/57 100 04/21/20 09:30 78 26 H 146/75 100 04/21/20 09:24 78 26 H 146/75 100 04/21/20 09:21 75 146/75 04/21/20 09:16 62 16 146/75 100 04/21/20 09:00 82 24 108/54 100 04/21/20 08:45 82 17 119/63 100 04/21/20 08:32 78 112/60 100 04/21/20 08:30 82 25 H 112/60 100 04/21/20 08:15 87 14 115/62 100 04/21/20 08:00 98.7 F 84 20 114/60 100 04/21/20 07:45 74 19 117/60 100 04/21/20 07:30 75 22 113/61 100 04/21/20 07:15 79 21 118/65 100 04/21/20 07:00 71 20 131/67 100 04/21/20 06:45 74 20 130/72 100 04/21/20 06:30 70 15 126/67 100 04/21/20 06:15 77 21 124/61 100 04/21/20 06:00 79 22 123/60 100 04/21/20 05:45 81 22 114/63 95 04/21/20 05:30 84 21 117/68 100 04/21/20 05:15 67 18 115/63 100 04/21/20 05:00 69 18 111/61 100 04/21/20 04:45 68 13 116/62 100 04/21/20 04:30 69 18 115/61 100 04/21/20 04:15 71 18 114/56 100 04/21/20 04:02 72 116/58 100 04/21/20 04:00 99.1 F 73 18 116/58 100 04/21/20 03:45 73 18 109/58 100 04/21/20 03:30 72 18 108/60 100 04/21/20 03:15 70 18 97/52 100 04/21/20 03:00 70 18 116/62 100 04/21/20 02:46 71 18 126/65 100 04/21/20 02:30 71 17 105/62 100 04/21/20 02:16 80 18 84/47 100 04/21/20 02:00 75 18 93/52 100 04/21/20 01:45 76 18 106/53 100 04/21/20 01:30 70 18 101/56 100 04/21/20 01:15 70 18 108/54 100 04/21/20 01:00 73 17 104/57 100 04/21/20 00:45 71 18 119/66 100 04/21/20 00:37 70 120/66 99 04/21/20 00:30 71 15 120/66 100 04/21/20 00:15 71 12 114/65 100 04/21/20 00:00 99.4 F 72 16 112/60 98 04/20/20 23:45 70 18 111/60 100 04/20/20 23:30 71 18 112/63 100 04/20/20 23:15 72 18 111/59 100 04/20/20 23:00 74 17 108/60 100 04/20/20 22:52 73 13 120/63 100 04/20/20 22:45 72 18 120/63 99 04/20/20 22:31 71 18 124/65 100 04/20/20 22:30 72 18 124/65 100 04/20/20 22:20 72 18 125/66 93 04/20/20 22:15 71 14 125/66 98 04/20/20 22:00 72 18 120/70 98 04/20/20 21:45 70 15 117/66 100 04/20/20 21:30 71 18 114/66 98 04/20/20 21:15 71 19 120/67 96 04/20/20 21:00 72 18 112/64 100 04/20/20 20:45 71 18 111/62 100 04/20/20 20:30 71 18 109/59 100 04/20/20 20:15 74 18 105/59 100 04/20/20 20:06 73 18 04/20/20 20:00 98.0 F 04/20/20 19:45 75 18 100/55 100 04/20/20 19:32 73 109/59 100 04/20/20 19:30 77 18 101/56 100 04/20/20 19:15 75 15 104/54 82 L 04/20/20 19:00 74 18 108/49 04/20/20 18:51 77 12 87/48 100 04/20/20 18:41 73 18 104/59 61 L 04/20/20 18:30 74 18 117/46 04/20/20 18:21 72 17 104/59 85 04/20/20 18:11 74 19 100/59 100 04/20/20 18:01 72 10 L 100/59 04/20/20 17:51 70 14 76/37 04/20/20 17:41 61 18 48/24 100 04/20/20 17:31 60 18 48/24 100 04/20/20 17:21 82 14 48/25 100 04/20/20 17:11 63 18 48/25 04/20/20 17:01 69 18 63/29 04/20/20 16:51 80 13 04/20/20 16:44 79 11 L 04/20/20 16:32 68 61/34 100 - Physical Examination General: No Apparent Distress, Other (Patient is somnolent) HEENT: Positive: Normocephaly Neck: Positive: neck supple, Other (No significant abnormality noted) Cardiac: Positive: Reg Rate and Rhythm Lungs: Positive: Decreased Breath Sounds Neuro: Positive: Grossly Intact, Other (Patient somnolent unable to evaluate. However moves all 4 extremities) Abdomen: Positive: Unremarkable Skin: Positive: Clear Extremities: Absent: edema - Labs and Meds Cardiac Enzymes 04/21/20 Range/Units 05:24 AST 23 (5-40) units/L Coagulation 04/21/20 Range/Units 09:00 PT 14.3 (12.2-14.9) Sec. INR 1.12 (0.87-1.13) CBC 04/21/20 Range/Units 05:24 WBC 14.9 H (4.5-11.0) K/mm3 RBC 4.37 (3.65-5.03) M/mm3 Hgb 9.7 L (10.1-14.3) gm/dl Hct 33.3 (30.3-42.9) % Plt Count 462 H (140-440) K/mm3 Comprehensive Metabolic Panel 04/20/20 04/21/20 Range/Units 16:05 05:24 Sodium 156 H 154 H (137-145) mmol/L Potassium 3.8 3.4 L (3.6-5.0) mmol/L Chloride 122.0 H 121.3 H (98-107) mmol/L Carbon Dioxide 27 19 L D (22-30) mmol/L BUN 26 H 28 H (7-17) mg/dL Creatinine 1.4 H D 1.3 H (0.6-1.2) mg/dL Glucose 226 H 230 H (65-100) mg/dL Calcium 9.0 9.3 (8.4-10.2) mg/dL AST 23 (5-40) units/L ALT 42 (7-56) units/L Alkaline Phosphatase 136 H (35-129) units/L Total Protein 7.1 (6.3-8.2) g/dL Albumin 3.2 L (3.9-5) g/dL - Imaging and Cardiology EKG: report reviewed
--- NOTE | 2020-04-21 14:10 | Progress Note ---
Assessment and Plan Assessment and plan: 54-year-old female with multiple medical problems including Peptic ulcer disease, Hypothyroidism, JANI, HLD, insulin-dependent diabetes, hypertension, and GERD, peripheral neuropathy and hyperlipidemia was found unresponsive and diaphoretic at home. In the ED the patient was feeling groggy and admits to shortness of breath and cough. Very when asked if she remembers how she ended up in the emergency room patient could not answer the question. Very poor historian. No fever or chills. Not known whether exposed to coronavirus. Early this year was treated for sepsis and encephalopathy. CXR: Unremarkable CT Head: IMPRESSION: There are stable postoperative changes involving frontal lobes with encephalomalacia and residual left parafalcine lesion as detailed above. Overall, this been no significant interval change from 11/27/2018. 04/17: Awaiting todays labs to evaluate renal function and obtain [employer] [place] Desk. Cardiology consulted for Type 2 IA, wound care also consulted due to 5th right toe wound, will adjust Insulin for Blood sugar. 04/18. Labs reviewed. Cardiology recommends ischemic work up prior to DC. Monitor blood gas 04/19. Discussed with patient's daughter who mentions that patient is usually able to have a normal conversation. Patient is also able to use her phone and post pictures on Facebook. Daughter's last conversation with patient was 4 days ago. In light of these changes, will order an LP to rule out encephalitis. MRI brain and EEG also ordered as per neurology evaluation earlier. Labs have been reviewed-started on hypotonic solution for hypernatremia. 04/20. Plan for MRI brain and EEG today. LP still pending. Neurology evaluation. Labs reviewed-sodium 154. Continue hypotonic solution/ 04/20PM. Patient was intubated for airway protection and transferred to the critical care unit. 04/21. She is slightly awake this morning. Not clearly following commands during my encounter. She was afebrile overnight. Her labs shows leukocytosis. LP still pending. She will need MRI brain as well to rule out CVA. EEG ordered. CT abdomen and pelvis will be ordered to determine any source of infection. Awaiting neurology reevaluation. Plan (1) Acute encephalopathy Current Visit: Yes Status: Acute Plan to address problem: Still persists. At baseline - she has a normal conversation with family as per daughter. Continue cefepime and vancomycin Needs LP. Will send CSF studies Check MRI brain and EEG Rule out other sources of possible infection - ID recs appreciated. Will get abdominal imaging (2) Sepsis Current Visit: Yes Status: Acute Qualifiers: Severe sepsis shock status: without septic shock Plan to address problem: No source of infection identified. IV cefepime and vancomycin started empirically. ID recs appreciated Awaiting LP. CT abdomen and pelvis pending. (3) Elevated troponin- ?Type 2 Current Visit: Yes Status: Acute Plan to address problem: Cardiology following. (4) JOEL (acute kidney injury) Current Visit: Yes Status: Acute Plan to address problem: Secondary to vasomotor nephropathy IV fluids (5) Hypernatremia Current Visit: Yes Status: Acute Plan to address problem: Poor intake Continue hypotonic solution-D5W Repeat BMP today. Will place NG tube for feeds (6) IDDM (insulin dependent diabetes mellitus) Current Visit: Yes Status: Chronic Plan to address problem: Continue Lantus and SSI (7) Hyperlipidemia Current Visit: No Status: Chronic Qualifiers: Hyperlipidemia type: mixed hyperlipidemia Qualified Code(s): E78.2 - Mixed hyperlipidemia Plan to address problem: Continue statins (8) Hypertension Current Visit: Yes Status: Chronic Qualifiers: Hypertension type: essential hypertension Qualified Code(s): I10 - Essential (primary) hypertension Plan to address problem: Continue antihypertensives and adjust medications as necessary (9) GERD (gastroesophageal reflux disease) Current Visit: Yes Status: Chronic Qualifiers: Esophagitis presence: without esophagitis Qualified Code(s): K21.9 - Gastro-esophageal reflux disease without esophagitis Plan to address problem: Continue Protonix (10) Peripheral neuropathy Current Visit: Yes Status: Chronic Qualifiers: Peripheral neuropathy type: polyneuropathy, unspecified Qualified Code(s): G62.9 - Polyneuropathy, unspecified Plan to address problem: Continue Lyrica (11) Seizure disorder Current Visit: Yes Status: Chronic Plan to address problem: Continue Lamictal No seizures noted this time. Neurology recs appreciated. EEG pending (12) DVT prophylaxis Current Visit: No Status: Acute History Interval history: Patient was intubated for airway protection yesterday Saw and examined her at bedside. She is intubated. Not following commands. Neurology reevaluation still pending. Labs reviewed. Hospitalist Physical - Physical exam Narrative exam: VITAL SIGNS: Reviewed. GENERAL: Intubated. HEAD: No signs of head trauma. EYES: Pupils are equal. Extraocular motions intact. MOUTH: Oropharynx is normal. NECK: No adenopathy, no JVD. CHEST: Chest with diminished breath sounds bilaterally. No wheezes, rales, or rhonchi. CARDIAC: normal S1 and S2, without murmurs, gallops, or rubs. ABDOMEN: Soft, non tender and non distended. No rebound or guarding, and no masses palpated. Bowel Sounds normal. MUSCULOSKELETAL: Edema NEUROLOGIC EXAM: Intubated. SKIN: No obvious lesions - Constitutional Vitals: Temp Pulse Resp BP Pulse Ox 98.7 F 84 20 109/55 100 04/21/20 08:00 04/21/20 11:49 04/21/20 12:00 04/21/20 11:30 04/21/20 12:00 HEART Score - HEART Score Age: 45-65 Risk factors: > 3 risk factors or hx of atherosclerotic disease Troponin: Troponin T < 0.010 ng/mL (0.00-0.029) 04/17/20 18:37 Troponin: 1-3x normal limit - Critical Actions Critical Actions: 4-6 pts:12-16.6% risk of adverse cardiac event. Should be admitted Results - Labs CBC & Chem 7: 04/22/20 04:54 04/22/20 04:54 Labs: Laboratory Last Values WBC 14.9 K/mm3 (4.5-11.0) H 04/21/20 05:24 RBC 4.37 M/mm3 (3.65-5.03) 04/21/20 05:24 Hgb 9.7 gm/dl (10.1-14.3) L 04/21/20 05:24 Hct 33.3 % (30.3-42.9) 04/21/20 05:24 MCV 76 fl (79-97) L 04/21/20 05:24 MCH 22 pg (28-32) L 04/21/20 05:24 MCHC 29 % (30-34) L 04/21/20 05:24 RDW 16.6 % (13.2-15.2) H 04/21/20 05:24 Plt Count 462 K/mm3 (140-440) H 04/21/20 05:24 Lymph % (Auto) 15.7 % (13.4-35.0) 04/20/20 05:19 [place] % (Auto) 13.6 % (0.0-7.3) H 04/20/20 05:19 Eos % (Auto) 1.1 % (0.0-4.3) 04/20/20 05:19 Baso % (Auto) 0.6 % (0.0-1.8) 04/20/20 05:19 Lymph # (Auto) 2.3 K/mm3 (1.2-5.4) 04/20/20 05:19 [place] # (Auto) 2.0 K/mm3 (0.0-0.8) H 04/20/20 05:19 Eos # (Auto) 0.2 K/mm3 (0.0-0.4) 04/20/20 05:19 Baso # (Auto) 0.2 K/mm3 (0.0-0.1) H 04/20/20 05:19 Add Manual Diff Complete 04/21/20 05:24 Total Counted 100 04/21/20 05:24 Seg Neutrophils % 69.0 % (40.0-70.0) 04/20/20 05:19 Seg Neuts % (Manual) 71.0 % (40.0-70.0) H 04/21/20 05:24 Band Neutrophils % 1.0 % 04/17/20 10:38 Lymphocytes % (Manual) 15.0 % (13.4-35.0) 04/21/20 05:24 Monocytes % (Manual) 12.0 % (0.0-7.3) H 04/21/20 05:24 Eosinophils % (Manual) 1.0 % (0.0-4.3) 04/21/20 05:24 Metamyelocytes % 1.0 % 04/21/20 05:24 Nucleated RBC % Not Reportable 04/21/20 05:24 Seg Neutrophils # 10.2 K/mm3 (1.8-7.7) H 04/20/20 05:19 Seg Neutrophils # Man 10.6 K/mm3 (1.8-7.7) H 04/21/20 05:24 Band Neutrophils # 0.0 K/mm3 04/21/20 05:24 Lymphocytes # (Manual) 2.2 K/mm3 (1.2-5.4) 04/21/20 05:24 Abs React Lymphs (Man) 0.0 K/mm3 04/21/20 05:24 Monocytes # (Manual) 1.8 K/mm3 (0.0-0.8) H 04/21/20 05:24 Eosinophils # (Manual) 0.1 K/mm3 (0.0-0.4) 04/21/20 05:24 Basophils # (Manual) 0.0 K/mm3 (0.0-0.1) 04/21/20 05:24 Metamyelocytes # 0.1 K/mm3 04/21/20 05:24 Myelocytes # 0.0 K/mm3 04/21/20 05:24 Promyelocytes # 0.0 K/mm3 04/21/20 05:24 Blast Cells # 0.0 K/mm3 04/21/20 05:24 WBC Morphology Not Reportable 04/21/20 05:24 Hypersegmented Neuts Not Reportable 04/21/20 05:24 Hyposegmented Neuts Not Reportable 04/21/20 05:24 Hypogranular Neuts Not Reportable 04/21/20 05:24 Smudge Cells Not Reportable 04/21/20 05:24 Toxic Granulation Not Reportable 04/21/20 05:24 Toxic Vacuolation Not Reportable 04/21/20 05:24 Dohle Bodies Not Reportable 04/21/20 05:24 Pelger-Huet Anomaly Not Reportable 04/21/20 05:24 Marcel Rods Not Reportable 04/21/20 05:24 Platelet Estimate Consistent w auto 04/21/20 05:24 Clumped Platelets Not Reportable 04/21/20 05:24 Plt Clumps, EDTA Not Reportable 04/21/20 05:24 Large Platelets Not Reportable 04/21/20 05:24 Giant Platelets Not Reportable 04/21/20 05:24 Platelet Satelliting Not Reportable 04/21/20 05:24 Plt Morphology Comment Not Reportable 04/21/20 05:24 RBC Morphology Not Reportable 04/21/20 05:24 Dimorphic RBCs Not Reportable 04/21/20 05:24 Polychromasia Not Reportable 04/21/20 05:24 Hypochromasia 1+ 04/21/20 05:24 Poikilocytosis Not Reportable 04/21/20 05:24 Anisocytosis Few 04/21/20 05:24 Microcytosis Not Reportable 04/21/20 05:24 Macrocytosis Not Reportable 04/21/20 05:24 Spherocytes Not Reportable 04/21/20 05:24 Pappenheimer Bodies Not Reportable 04/21/20 05:24 Sickle Cells Not Reportable 04/21/20 05:24 Target Cells Not Reportable 04/21/20 05:24 Tear Drop Cells Not Reportable 04/21/20 05:24 Ovalocytes Not Reportable 04/21/20 05:24 Helmet Cells Not Reportable 04/21/20 05:24 [place] Bodies Not Reportable 04/21/20 05:24 [place] Rings Not Reportable 04/21/20 05:24 [place]ble Cells Not Reportable 04/21/20 05:24 Bite Cells Not Reportable 04/21/20 05:24 Crenated Cell Not Reportable 04/21/20 05:24 Elliptocytes Not Reportable 04/21/20 05:24 Acanthocytes (Spur) Not Reportable 04/21/20 05:24 Rouleaux Not Reportable 04/21/20 05:24 Hemoglobin C Crystals Not Reportable 04/21/20 05:24 Schistocytes Few 04/21/20 05:24 Malaria parasites Not Reportable 04/21/20 05:24 Levi Bodies Not Reportable 04/21/20 05:24 Hem Pathologist Commnt No 04/21/20 05:24 PT 14.3 Sec. (12.2-14.9) 04/21/20 09:00 INR 1.12 (0.87-1.13) 04/21/20 09:00 APTT 43.3 Sec. (24.2-36.6) H 04/16/20 19:29 D-Dimer 1201.23 ng/mlDDU (0-234) H 04/17/20 10:38 ABG pH 7.344 (7.320-7.450) 04/21/20 03:45 POC ABG pCO2 37.8 mmHg (32.0-48.0) 04/21/20 03:45 POC ABG pO2 145.5 mmHg (83-108) H 04/21/20 03:45 POC ABG HCO3 20.1 04/21/20 03:45 POC ABG Base Excess -5.1 04/21/20 03:45 ABG Hemoglobin 10.6 (12.0-17.5) L 04/21/20 03:45 ABG Oxyhemoglobin 97.8 (94-98) 04/20/20 18:17 ABG Methemoglobin 0.3 (0.0-1.5) 04/20/20 18:17 ABG Sodium 153.1 mmol/L (136.0-145.0) H 04/21/20 03:45 ABG Potassium 3.2 mmol/L (3.40-4.50) L 04/21/20 03:45 ABG Chloride 120.0 mmol/L (98-107) H 04/21/20 03:45 ABG Glucose 223 mg/dL (65-95) H 04/21/20 03:45 Carboxyhemoglobin 0.8 (0.5-1.5) 04/20/20 18:17 FiO2 50 04/21/20 03:45 Sodium 154 mmol/L (137-145) H 04/21/20 05:24 Potassium 3.4 mmol/L (3.6-5.0) L 04/21/20 05:24 Chloride 121.3 mmol/L (98-107) H 04/21/20 05:24 Carbon Dioxide 19 mmol/L (22-30) L D 04/21/20 05:24 Anion Gap 17 mmol/L 04/21/20 05:24 BUN 28 mg/dL (7-17) H 04/21/20 05:24 Creatinine 1.3 mg/dL (0.6-1.2) H 04/21/20 05:24 Estimated GFR 52 ml/min 04/21/20 05:24 BUN/Creatinine Ratio 22 % 04/21/20 05:24 Glucose 230 mg/dL (65-100) H 04/21/20 05:24 POC Glucose 197 mg/dL (70-105) H 04/21/20 12:14 Hemoglobin A1c 7.6 % (4-6) H 04/18/20 05:23 Lactic Acid 1.10 mmol/L (0.7-2.0) 04/16/20 23:50 Calcium 9.3 mg/dL (8.4-10.2) 04/21/20 05:24 Phosphorus 3.30 mg/dL (2.5-4.5) 04/20/20 05:19 Magnesium 2.70 mg/dL (1.7-2.3) H 04/16/20 19:45 Ferritin 87529.0 ng/mL (10.0-200.0) H 04/17/20 10:38 Total Bilirubin 0.30 mg/dL (0.1-1.2) 04/21/20 05:24 AST 23 units/L (5-40) 04/21/20 05:24 ALT 42 units/L (7-56) 04/21/20 05:24 Alkaline Phosphatase 136 units/L (35-129) H 04/21/20 05:24 Ammonia 50.0 umol/L (25-60) 04/16/20 19:57 Lactate Dehydrogenase 246 units/L (91-180) H 04/17/20 10:38 Total Creatine Kinase 303 units/L (30-135) H 04/16/20 19:45 CK-MB (CK-2) < 1.0 ng/mL (0.0-4.0) 04/16/20 19:45 CK-MB (CK-2) Rel Index 0.3 (0-4) 04/16/20 19:45 Troponin T < 0.010 ng/mL (0.00-0.029) 04/17/20 18:37 C-Reactive Protein 13.90 mg/dL (0.00-1.30) H 04/17/20 10:38 Total Protein 7.1 g/dL (6.3-8.2) 04/21/20 05:24 Albumin 3.2 g/dL (3.9-5) L 04/21/20 05:24 Albumin/Globulin Ratio 0.8 % 04/21/20 05:24 Triglycerides 171 mg/dL (2-149) H 04/16/20 19:29 Cholesterol 212 mg/dL (50-199) H 04/16/20 19:29 LDL Cholesterol Direct 147 mg/dL (50-130) H 04/16/20 19:29 HDL Cholesterol 35 mg/dL (40-59) L 04/16/20 19:29 Cholesterol/HDL Ratio 6.05 % 04/16/20 19:29 Procalcitonin 1.39 ng/mL (<0.15) 04/17/20 10:38 TSH 0.679 mlU/mL (0.270-4.200) 04/16/20 19:45 Free T4 0.94 ng/dL (0.76-1.46) 04/16/20 19:45 Arterial Blood Glucose 223 mg/dL (65-95) H 04/21/20 03:45 Arterial Blood Ionized Calcium 5.1 mg/dL (4.6-5.3) 04/21/20 03:45 Vancomycin Trough 56.2 ug/mL (5.0-20.0) H 04/20/20 10:17 Random Vancomycin 41.4 ug/mL (0-40.0) H 04/21/20 09:00 Plasma/Serum Alcohol < 0.01 % (0-0.07) 04/16/20 19:45 Coronavirus (PCR) Negative (Negative) 04/18/20 10:20 Microbiology: Microbiology 04/16/20 23:50 Peripheral/Venous Blood Culture - Preliminary NO GROWTH AFTER 4 DAYS 04/16/20 23:42 Peripheral/Venous Blood Culture - Preliminary NO GROWTH AFTER 4 DAYS - Diagnostic Impressions Diagnostic Impressions: Echocardiogram 04/17/20 07:54 Transthoracic Echocardiogram Indication: SOB BP: 92/57 HR: 161 Conclusions *The study quality is technically difficult. *Global left ventricular systolic function is normal. *The estimated ejection fraction is 55-60%. *Mild concentric left ventricular hypertrophy is observed. *There is no significant mitral regurgitation. *There is at least mild to moderate tricuspid regurgitation. *There is at least mild pulmonary hypertension. *The right ventricular systolic pressure is calculated at 40 mmHg. Findings Procedure Info: The study quality is technically difficult. The study is technically limited due to poor acoustic windows. The study is technically limited due to patient body habitus. Left Ventricle: The left ventricular chamber size is normal. Mild concentric left ventricular hypertrophy is observed. Global left ventricular systolic function is normal. The estimated ejection fraction is 55-60%. Left Atrium: The left atrial chamber size is normal. Right Ventricle: The right ventricle is slightly dilated. The right ventricular global systolic function is normal. Right Atrium: The right atrial cavity size is normal. Aortic Valve: The aortic valve leaflets are mildly thickened. There is no evidence of aortic regurgitation. There is no evidence of aortic stenosis. Mitral Valve: The mitral valve leaflets are mildly thickened. There is no evidence of mitral regurgitation. There is no evidence of mitral stenosis. Tricuspid Valve: There is mild to moderate tricuspid regurgitation. The right ventricular systolic pressure is calculated at 40 mmHg. There is evidence of mild pulmonary hypertension. Pulmonic Valve: There is trace pulmonic regurgitation. Pericardium: There is no pericardial effusion. Aorta: There is no dilatation of the ascending aorta. There is no dilatation of the aortic root. Venous: The inferior vena cava appears normal in size. Measurements Chambers 2D Name Value Normal Range IVSd (2D) 1.25 cm (0.6 - 1.1) LVPWd (2D) 1.22 cm (0.6 - 1.1) LVIDd (2D) 3.38 cm (3.7 - 5.6) LVIDs (2D) 2.49 cm (2 - 3.8) LV FS (2D) 26.32 % - EF Teichholz (2D) 52.72 % - Ao root diameter (2D) 2.59 cm (2 - 3.7) Volumes/Mass Name Value Normal Range LA ESV SP 4CH (A/L) 35.95 ml - LA ESV SP 2CH (A/L) 35.35 ml - LA ESV BP (A/L) 36.93 ml - LA ESV BP (A/L) index 15.92 ml/m2 - LA ESV SP 4CH (MOD) 28.81 ml - LA ESV SP 2CH (MOD) 34.25 ml - LA ESV BP (MOD) 32.42 ml - LA ESV BP (MOD) index 13.97 ml/m2 - Diastolic/Systolic Function Name Value Normal Range MV E-wave Vmax 1.17 m/sec - MV deceleration time 107.18 msec - MV A-wave Vmax 0.67 m/sec - MV E:A ratio 1.75 ratio - Aortic Valve Name Value Normal Range AV Vmax 1.35 m/sec - AV VTI 18.24 cm - AV peak gradient 7.34 mmHg - AV mean gradient 3.81 mmHg - LVOT diameter 1.86 cm - LVOT Vmax 1.03 m/sec - LVOT VTI 14.97 cm - LVOT peak gradient 4.24 mmHg - LVOT mean gradient 1.98 mmHg - SV LVOT 40.48 ml - DRE (continuity Vmax) 2.05 cm2 - DRE (continuity VTI) 2.22 cm2 - Ascending Ao 2.6 cm - Tricuspid Valve Name Value Normal Range TR Vmax 3.05 m/sec - TR peak gradient 37 mmHg - RAP 3 mmHg - RVSP 40 mmHg - IVC diameter 1.34 cm (1.2 - 2.3) Pulmonic Valve/Qp:Qs Name Value Normal Range PV Vmax 1.14 m/sec - PV peak gradient 5.23 mmHg - OH end-diastolic Vmax 1.86 m/sec - PV acceleration time 72.31 msec - Perez/IV: Voiding Method Indwelling Catheter IV Catheter Type [Right Triple Lumen Cath Femoral] IV Catheter Type [Left Forearm INT / Saline Lock ] IV Catheter Type [Left Wrist] Peripheral IV IV Catheter Type [Left INT / Saline Lock Antecubital] Active Medications - Current Medications Current Medications: Generic Name Dose Route Start Last Admin Trade Name Freq PRN Reason Stop Dose Admin Acetaminophen 650 mg 04/17/20 23:57 04/18/20 01:04 Acetaminophen 650 Mg Rect Supp OH 650 mg Q6H PRN Administration Pain, Mild (1-3) Hydrocodone Bitart/Acetaminophen 1 each 04/17/20 10:00 Hydrocodone/Acetaminophen 5-325 Mg Tab PO Q4HR PRN PAIN Albuterol 2.5 mg 04/17/20 08:00 Albuterol 2.5 Mg/3 Ml Nebu IH Q4HRT PRN Shortness Of Breath Amiodarone HCl 200 mg 04/19/20 13:00 04/21/20 09:22 Amiodarone 200 Mg Tab PO 200 mg BID VIOLETA Administration Aspirin 81 mg 04/19/20 13:00 04/21/20 09:25 Aspirin 81 Mg Tab Chew PO 81 mg QDAY VIOLETA Administration Atorvastatin Calcium 40 mg 04/17/20 22:00 04/20/20 21:59 Atorvastatin 40 Mg Tab PO Not Given QHS VIOLETA Cholecalciferol 1,000 unit 04/17/20 14:00 04/21/20 09:26 Cholecalciferol (Vit D3) 1000 Unit (25 Mcg) Tab PO 1,000 unit DAILY VIOLETA Administration Clopidogrel Bisulfate 75 mg 04/20/20 10:00 04/21/20 09:26 Clopidogrel 75 Mg Tab PO 75 mg QDAY VIOLETA Administration Heparin Sodium (Porcine) 5,000 unit 04/19/20 13:00 04/21/20 12:35 Heparin 5,000 Unit/1 Ml Vial SUB-Q 5,000 unit Q12HR VIOLETA Administration Hydrocortisone Acetate 10 mg 04/17/20 10:00 04/20/20 21:59 Hydrocortisone 10 Mg Tab PO Not Given BID VIOLETA Hydrophilic Ointment 1 applic 04/20/20 16:32 Lip Therapy Vaseline TP Q2HR PRN Dry Lips Dextrose 1,000 mls @ 100 mls/hr 04/19/20 13:00 04/19/20 13:09 D5w IV 04/21/20 20:00 100 mls/hr DIRECT VIOLETA Administration Norepinephrine 4 mg in 250 mls @ 7.5 mls/hr 04/20/20 19:00 04/21/20 08:45 Levophed Drip 4 Mg/Ns 250 Ml IV 0 mcg/min TITR VIOLETA 0 mls/hr Titration Protocol 2 MCG/MIN Cefepime HCl 2 gm in 100 mls @ 200 mls/hr 04/21/20 10:00 04/21/20 09:20 Cefepime/Ns 2 Gm/100 Ml IV 200 mls/hr Q8H REPLACED BY [facility] Administration Insulin Glargine 26 units 04/19/20 22:00 04/20/20 21:59 Insulin Glargine 100 Units/Ml SUB-Q Not Given QHS REPLACED BY [facility] Insulin Human Lispro 0 unit 04/17/20 11:30 04/21/20 12:35 Insulin Lispro 100 Unit/Ml Vial 3 Ml SUB-Q Not Given ACHS REPLACED BY [facility] Protocol Lamotrigine 25 mg 04/17/20 10:00 04/20/20 21:59 Lamotrigine 25 Mg Tab PO Not Given BID REPLACED BY [facility] Levothyroxine Sodium 50 mcg 04/17/20 10:00 04/21/20 05:28 Levothyroxine 50 Mcg Tab PO Not Given DAILY@0600 REPLACED BY [facility] Metoprolol Tartrate 50 mg 04/19/20 14:00 04/21/20 09:21 Metoprolol Tartrate 50 Mg Tab PO 50 mg TID VIOLETA Administration Multi-Ingred Cream/Lotion/Oil/Oint 1 applic 04/20/20 16:32 Mineral Oil/Petrolatum, White Ophth Oint 3.5 Gm OU Q4HR PRN Dry Eye(s) Nitroglycerin 0.2 mg 04/21/20 06:00 04/21/20 05:28 Nitroglycerin 0.2 Mg Patch 24hr TD Not Given QDAY@0600 REPLACED BY [facility] Pantoprazole Sodium 40 mg 04/21/20 10:00 04/21/20 09:27 Pantoprazole 40 Mg Inj IV 40 mg BID VIOLETA Administration Pregabalin 150 mg 04/17/20 10:00 04/21/20 09:26 Pregabalin 75 Mg Cap PO 150 mg BID VIOLETA Administration Nutrition/Malnutrition Assess - Dietary Evaluation Nutrition/Malnutrition Findings: Nutrition Notes Start: 04/21/20 09:56 Freq: Status: Active Protocol: Document 04/21/20 09:56 (Rec: 04/21/20 10:39 [email or web address]) Nutrition Notes Need for Assessment generated from: MD Order Initial or Follow up Assessment Current Diagnosis Acute Kidney Injury,Diabetes, Sepsis,Hypertension, Hyperlipidemia Other Pertinent Diagnosis H/o seizures Current Diet Mechanical soft Labs/Tests Na 154 K 3.4 BUN 28 Cr 1.3 BG 230 Pertinent Medications Reviewed Height 5 ft 8 in Weight 122.47 kg [place] Body Weight (kg) 63.63 BMI 41.0 Weight Status Morbidly Obese Subjective/Other Information conult to evaluate intakes. Pt was intubated 04/20. Burn Absent Trauma Absent Current % PO Negligible Minimum of two criteria No physical signs of malnutrition #1 Nutrition Diagnosis Inadequate oral intake Etiology mechanical vent As Evidenced by Signs and Symptoms unable to comsume PO Is patient on ventilator? Yes Is Patient Ambulatory and/or Out of Bed No REE-([facility]-confined to bed) 2251.560 Kcal/Kg value to use for calculation 14 Approximate Energy Requirements Using 1715 kcal/Kg Calculation Used for Recommendations Kcal/kg Additional Notes Pro: >127g (>2g/kg IBW) Fluid: 1 ml/kcal or per MD Nutrition Intervention Change Diet Order: Extubate or TF when medically able Nutrition Support: Glucerna 1.2 at 65ml/hr Flush 200 ml q4h for hypernatermia Once resolved, flush 100 ml q4h Kcal 1,872 Protein (gm) 94 Fluid (mL) 1,256 Goal #1 TF start or extubation Anticipated Discharge Needs: Unable to determine at this time Follow-Up By: 04/27/20 Additional Comments FU for TF start or extubation
--- NOTE | 2020-04-21 14:53 | Consultation ---
History of Present Illness Consult date: 04/21/20 Requesting physician: ARVIND ROJAS Reason for consult: other (Altered Mental Status) History of present illness: 54 y/o morbidly obese female black female with prior history of sarcoid and poor functional state admitted with altered mental status. Patient has had what appears to be waxing and waning of mental status since admission. On yesterday, during neurology evaluation, suggested that patient be intubated secondary to low GCS. Patient was intubated and transitioned the unit. This am, on my exam, patient was awake and alert. Followed commands on the left. Scheduled for head CT today that has been done but not read yet. Remainder is negative. Past History Past Medical History: diabetes, hypertension, hyperlipidemia Social history: no significant social history Family history: no significant family history Medications and Allergies Allergies Allergy/AdvReac Type Severity Reaction Status Date / Time erythromycin base Allergy Itching Verified 11/26/18 06:03 [From Erythrocin] Penicillins Allergy Rash Verified 11/26/18 06:02 Home Medications Medication Instructions Recorded Confirmed Last Taken Type Atorvastatin Calcium 40 mg PO BID 11/26/18 04/17/20 11/25/18 08:00 History Cholecalciferol Vit D3 [Vitamin D3 1,000 1000units PO QDAY 11/26/18 04/17/20 11/25/18 08:00 History 1,000 UNIT TAB] HYDROcodone/APAP 5-325 [[place] 1 each PO Q4HR PRN 11/26/18 04/17/20 Unknown History 5-325 mg TAB] Hydrocortisone [Cortef TAB] 10 mg PO BID 11/26/18 04/17/20 Unknown History Insulin Glargine,Hum.rec.anlog 60 unit SQ QHS 11/26/18 04/17/20 Unknown History [Lantus Solostar] Insulin Glargine,Hum.rec.anlog See Protocol SUB-Q QACHS 11/26/18 04/17/20 Unknown History [Lantus Solostar] Lasix TAB 20 mg PO BID 11/26/18 04/17/20 Unknown History Levothyroxine [Synthroid] 50 mcg PO QAM 11/26/18 04/17/20 11/24/18 08:00 History Lispro Insulin [HumaLOG] See Protocol SUB-Q ACHS 11/26/18 04/17/20 11/25/18 History Metoprolol [Lopressor TAB] 50 mg PO BID 11/26/18 04/17/20 Unknown History Mometasone 0.1% (Nf) 0.1 units TP BID 11/26/18 04/17/20 Unknown History Pantoprazole [Protonix TAB] 40 mg PO BID 11/26/18 04/17/20 Unknown History Petrolatum,White [Vaseline White 5 gm TP BID 11/26/18 04/17/20 Unknown History Petroleum] Pregabalin [Lyrica] 150 mg PO BID 11/26/18 04/17/20 11/25/18 08:00 History lamoTRIgine [LaMICtal] 25 mg PO BID 11/26/18 04/17/20 Unknown History ALBUTEROL NEB's [Proventil 0.083% 2.5 mg IH Q4HRT PRN nebu 05/20/19 04/17/20 Unknown Rx NEBS] Apixaban [Eliquis] 5 mg PO BID tablet 05/20/19 04/17/20 Unknown Rx AtorvaSTATin [Lipitor] 40 mg PO QDAY tablet 05/20/19 04/17/20 Unknown Rx Active Meds: Active Medications Acetaminophen (Acetaminophen 650 Mg Rect Supp) 650 mg RI Q6H PRN PRN Reason: Pain, Mild (1-3) Last Admin: 04/18/20 01:04 Dose: 650 mg Documented by: Hydrocodone Bitart/Acetaminophen (Hydrocodone/Acetaminophen 5-325 Mg Tab) 1 each PO Q4HR PRN PRN Reason: PAIN Albuterol (Albuterol 2.5 Mg/3 Ml Nebu) 2.5 mg IH Q4HRT PRN PRN Reason: Shortness Of Breath Amiodarone HCl (Amiodarone 200 Mg Tab) 200 mg PO BID [facility] Last Admin: 04/21/20 09:22 Dose: 200 mg Documented by: Aspirin (Aspirin 81 Mg Tab Chew) 81 mg PO QDAY [facility] Last Admin: 04/21/20 09:25 Dose: 81 mg Documented by: Atorvastatin Calcium (Atorvastatin 40 Mg Tab) 40 mg PO QHS [facility] Last Admin: 04/20/20 21:59 Dose: Not Given Documented by: Cholecalciferol (Cholecalciferol (Vit D3) 1000 Unit (25 Mcg) Tab) 1,000 unit PO DAILY [facility] Last Admin: 04/21/20 09:26 Dose: 1,000 unit Documented by: Clopidogrel Bisulfate (Clopidogrel 75 Mg Tab) 75 mg PO QDAY [facility] Last Admin: 04/21/20 09:26 Dose: 75 mg Documented by: Heparin Sodium (Porcine) (Heparin 5,000 Unit/1 Ml Vial) 5,000 unit SUB-Q Q12HR [facility] Last Admin: 04/21/20 12:35 Dose: 5,000 unit Documented by: Hydrocortisone Acetate (Hydrocortisone 10 Mg Tab) 10 mg PO BID [facility] Last Admin: 04/20/20 21:59 Dose: Not Given Documented by: Hydrophilic Ointment (Lip Therapy Vaseline) 1 applic TP Q2HR PRN PRN Reason: Dry Lips Dextrose (D5w) 1,000 mls @ 100 mls/hr IV DIRECT [facility] Stop: 04/21/20 20:00 Last Admin: 04/19/20 13:09 Dose: 100 mls/hr Documented by: Norepinephrine (Levophed Drip 4 Mg/Ns 250 Ml) 4 mg in 250 mls @ 7.5 mls/hr IV TITR [facility]; Protocol Last Titration: 04/21/20 08:45 Dose: 0 mcg/min, 0 mls/hr Documented by: Cefepime HCl (Cefepime/Ns 2 Gm/100 Ml) 2 gm in 100 mls @ 200 mls/hr IV Q8H [facility] Last Admin: 04/21/20 09:20 Dose: 200 mls/hr Documented by: Insulin Glargine (Insulin Glargine 100 Units/Ml) 26 units SUB-Q QHS [facility] Last Admin: 04/20/20 21:59 Dose: Not Given Documented by: Insulin Human Lispro (Insulin Lispro 100 Unit/Ml Vial 3 Ml) 0 unit SUB-Q ACHS [facility]; Protocol Last Admin: 04/21/20 12:35 Dose: Not Given Documented by: Lamotrigine (Lamotrigine 25 Mg Tab) 25 mg PO BID [facility] Last Admin: 04/20/20 21:59 Dose: Not Given Documented by: Levothyroxine Sodium (Levothyroxine 50 Mcg Tab) 50 mcg PO DAILY@0600 [facility] Last Admin: 04/21/20 05:28 Dose: Not Given Documented by: Metoprolol Tartrate (Metoprolol Tartrate 50 Mg Tab) 50 mg PO TID [facility] Last Admin: 04/21/20 09:21 Dose: 50 mg Documented by: Multi-Ingred Cream/Lotion/Oil/Oint (Mineral Oil/Petrolatum, White Ophth Oint 3.5 Gm) 1 applic OU Q4HR PRN PRN Reason: Dry Eye(s) Nitroglycerin (Nitroglycerin 0.2 Mg Patch 24hr) 0.2 mg TD QDAY@0600 [facility] Last Admin: 04/21/20 05:28 Dose: Not Given Documented by: Pantoprazole Sodium (Pantoprazole 40 Mg Inj) 40 mg IV BID [facility] Last Admin: 04/21/20 09:27 Dose: 40 mg Documented by: Pregabalin (Pregabalin 75 Mg Cap) 150 mg PO BID [facility] Last Admin: 04/21/20 09:26 Dose: 150 mg Documented by: Review of Systems ROS unobtainable: due to endotracheal tube Physical Examination Vital signs: Vital Signs Temp Pulse BP Pulse Ox 100.1 F H 103 H 98/54 92 04/16/20 19:34 04/16/20 19:34 04/16/20 19:34 04/16/20 19:34 General appearance: no acute distress, alert, other (morbidly obese) Eyes: non-icteric ENT: other (orally intubated, not on sedation.) Neck: supple, other (large in circumference) Effort: normal Ascultation: Bilateral: clear Percussion: Bilateral: not dull Cardiovascular: regular rate and rhythm Gastrointestinal: normoactive bowel sounds, soft, other (obese) Extremities: other (right foot rapped, poor skin integrity on left) Results - Laboratory Findings CBC and BMP: 04/21/20 05:24 04/21/20 05:24 ABG ABG pH 7.344 (7.320-7.450) 04/21/20 03:45 POC ABG pCO2 37.8 mmHg (32.0-48.0) 04/21/20 03:45 POC ABG pO2 145.5 mmHg (83-108) H 04/21/20 03:45 POC ABG HCO3 20.1 04/21/20 03:45 PT/INR, D-dimer PT 14.3 Sec. (12.2-14.9) 04/21/20 09:00 INR 1.12 (0.87-1.13) 04/21/20 09:00 D-Dimer 1201.23 ng/mlDDU (0-234) H 04/17/20 10:38 Abnormal lab findings: Abnormal Labs 04/16/20 04/16/20 04/16/20 19:29 19:29 19:31 WBC Hgb MCV MCH MCHC RDW Plt Count Lymph % (Auto) [place] % (Auto) [place] # (Auto) Baso # (Auto) Seg Neutrophils % Seg Neuts % (Manual) Lymphocytes % (Manual) Monocytes % (Manual) Nucleated RBC % Seg Neutrophils # Seg Neutrophils # Man Monocytes # (Manual) PT 19.5 H INR 1.64 H APTT 43.3 H D-Dimer ABG pH POC ABG pO2 ABG Hemoglobin ABG Sodium ABG Potassium ABG Chloride ABG Glucose Sodium Potassium 5.3 H Chloride Carbon Dioxide 20 L BUN 49 H Creatinine 1.7 H Glucose 295 H POC Glucose 243 H Hemoglobin A1c Calcium Magnesium Ferritin ALT Alkaline Phosphatase Lactate Dehydrogenase Total Creatine Kinase Troponin T 0.067 H C-Reactive Protein Albumin Triglycerides 171 H Cholesterol 212 H LDL Cholesterol Direct 147 H HDL Cholesterol 35 L Arterial Blood Glucose Vancomycin Trough Random Vancomycin 04/16/20 04/16/20 04/17/20 19:45 20:37 08:43 WBC 20.6 H Hgb MCV 75 L MCH 24 L MCHC RDW 15.6 H Plt Count 470 H Lymph % (Auto) [place] % (Auto) [place] # (Auto) Baso # (Auto) Seg Neutrophils % Seg Neuts % (Manual) 71.0 H Lymphocytes % (Manual) Monocytes % (Manual) 10.0 H Nucleated RBC % Seg Neutrophils # Seg Neutrophils # Man 14.6 H Monocytes # (Manual) 2.1 H PT INR APTT D-Dimer ABG pH POC ABG pO2 ABG Hemoglobin ABG Sodium ABG Potassium ABG Chloride ABG Glucose Sodium Potassium Chloride Carbon Dioxide BUN Creatinine Glucose POC Glucose 147 H Hemoglobin A1c Calcium Magnesium 2.70 H Ferritin ALT Alkaline Phosphatase Lactate Dehydrogenase Total Creatine Kinase 303 H Troponin T C-Reactive Protein Albumin Triglycerides Cholesterol LDL Cholesterol Direct HDL Cholesterol Arterial Blood Glucose Vancomycin Trough Random Vancomycin 04/17/20 04/17/20 04/17/20 10:38 10:38 10:38 WBC Hgb MCV MCH MCHC RDW Plt Count Lymph % (Auto) [place] % (Auto) [place] # (Auto) Baso # (Auto) Seg Neutrophils % Seg Neuts % (Manual) Lymphocytes % (Manual) Monocytes % (Manual) Nucleated RBC % Seg Neutrophils # Seg Neutrophils # Man Monocytes # (Manual) PT INR APTT D-Dimer 1201.23 H ABG pH POC ABG pO2 ABG Hemoglobin ABG Sodium ABG Potassium ABG Chloride ABG Glucose Sodium Potassium Chloride Carbon Dioxide BUN Creatinine Glucose 172 H POC Glucose Hemoglobin A1c Calcium Magnesium Ferritin 23858.0 H ALT Alkaline Phosphatase Lactate Dehydrogenase 246 H Total Creatine Kinase Troponin T C-Reactive Protein 13.90 H Albumin Triglycerides Cholesterol LDL Cholesterol Direct HDL Cholesterol Arterial Blood Glucose Vancomycin Trough Random Vancomycin 04/17/20 04/17/20 04/17/20 10:38 10:38 11:50 WBC 18.0 H Hgb MCV 75 L MCH 23 L MCHC RDW 15.9 H Plt Count Lymph % (Auto) [place] % (Auto) [place] # (Auto) Baso # (Auto) Seg Neutrophils % Seg Neuts % (Manual) 83.0 H Lymphocytes % (Manual) 11.0 L Monocytes % (Manual) Nucleated RBC % 1.0 H Seg Neutrophils # Seg Neutrophils # Man 14.9 H Monocytes # (Manual) 0.9 H PT INR APTT D-Dimer ABG pH POC ABG pO2 ABG Hemoglobin ABG Sodium ABG Potassium ABG Chloride ABG Glucose Sodium Potassium 5.2 H Chloride 107.3 H Carbon Dioxide 21 L BUN 44 H Creatinine Glucose 167 H POC Glucose 146 H Hemoglobin A1c Calcium 10.3 H Magnesium Ferritin ALT Alkaline Phosphatase Lactate Dehydrogenase Total Creatine Kinase Troponin T C-Reactive Protein Albumin Triglycerides Cholesterol LDL Cholesterol Direct HDL Cholesterol Arterial Blood Glucose Vancomycin Trough Random Vancomycin 04/17/20 04/17/20 04/18/20 17:10 20:41 05:23 WBC Hgb MCV MCH MCHC RDW Plt Count Lymph % (Auto) [place] % (Auto) [place] # (Auto) Baso # (Auto) Seg Neutrophils % Seg Neuts % (Manual) Lymphocytes % (Manual) Monocytes % (Manual) Nucleated RBC % Seg Neutrophils # Seg Neutrophils # Man Monocytes # (Manual) PT INR APTT D-Dimer ABG pH POC ABG pO2 ABG Hemoglobin ABG Sodium ABG Potassium ABG Chloride ABG Glucose Sodium Potassium Chloride Carbon Dioxide BUN Creatinine Glucose POC Glucose 165 H 212 H Hemoglobin A1c 7.6 H Calcium Magnesium Ferritin ALT Alkaline Phosphatase Lactate Dehydrogenase Total Creatine Kinase Troponin T C-Reactive Protein Albumin Triglycerides Cholesterol LDL Cholesterol Direct HDL Cholesterol Arterial Blood Glucose Vancomycin Trough Random Vancomycin 04/18/20 04/18/20 04/18/20 05:23 05:23 07:33 WBC 16.6 H Hgb MCV 76 L MCH 24 L MCHC RDW 15.9 H Plt Count Lymph % (Auto) 9.8 L [place] % (Auto) 12.9 H [place] # (Auto) 2.1 H Baso # (Auto) Seg Neutrophils % 75.7 H Seg Neuts % (Manual) Lymphocytes % (Manual) Monocytes % (Manual) Nucleated RBC % Seg Neutrophils # 12.6 H Seg Neutrophils # Man Monocytes # (Manual) PT INR APTT D-Dimer ABG pH POC ABG pO2 ABG Hemoglobin ABG Sodium ABG Potassium ABG Chloride ABG Glucose Sodium 148 H Potassium 5.5 H Chloride 114.3 H Carbon Dioxide 19 L BUN 31 H Creatinine Glucose 201 H POC Glucose 178 H Hemoglobin A1c Calcium Magnesium Ferritin ALT Alkaline Phosphatase Lactate Dehydrogenase Total Creatine Kinase Troponin T C-Reactive Protein Albumin Triglycerides Cholesterol LDL Cholesterol Direct HDL Cholesterol Arterial Blood Glucose Vancomycin Trough Random Vancomycin 04/18/20 04/18/20 04/18/20 11:38 16:07 20:44 WBC Hgb MCV MCH MCHC RDW Plt Count Lymph % (Auto) [place] % (Auto) [place] # (Auto) Baso # (Auto) Seg Neutrophils % Seg Neuts % (Manual) Lymphocytes % (Manual) Monocytes % (Manual) Nucleated RBC % Seg Neutrophils # Seg Neutrophils # Man Monocytes # (Manual) PT INR APTT D-Dimer ABG pH POC ABG pO2 ABG Hemoglobin ABG Sodium ABG Potassium ABG Chloride ABG Glucose Sodium Potassium Chloride Carbon Dioxide BUN Creatinine Glucose POC Glucose 187 H 248 H 243 H Hemoglobin A1c Calcium Magnesium Ferritin ALT Alkaline Phosphatase Lactate Dehydrogenase Total Creatine Kinase Troponin T C-Reactive Protein Albumin Triglycerides Cholesterol LDL Cholesterol Direct HDL Cholesterol Arterial Blood Glucose Vancomycin Trough Random Vancomycin 04/19/20 04/19/20 04/19/20 04:55 07:40 12:01 WBC Hgb MCV MCH MCHC RDW Plt Count Lymph % (Auto) [place] % (Auto) [place] # (Auto) Baso # (Auto) Seg Neutrophils % Seg Neuts % (Manual) Lymphocytes % (Manual) Monocytes % (Manual) Nucleated RBC % Seg Neutrophils # Seg Neutrophils # Man Monocytes # (Manual) PT INR APTT D-Dimer ABG pH POC ABG pO2 ABG Hemoglobin ABG Sodium ABG Potassium ABG Chloride ABG Glucose Sodium 152 H Potassium Chloride 117.2 H Carbon Dioxide BUN 27 H Creatinine Glucose 325 H POC Glucose 258 H 251 H Hemoglobin A1c Calcium Magnesium Ferritin ALT Alkaline Phosphatase Lactate Dehydrogenase Total Creatine Kinase Troponin T C-Reactive Protein Albumin Triglycerides Cholesterol LDL Cholesterol Direct HDL Cholesterol Arterial Blood Glucose Vancomycin Trough Random Vancomycin 04/19/20 04/19/20 04/20/20 16:19 21:41 05:19 WBC 14.8 H Hgb MCV 77 L MCH 23 L MCHC RDW 16.5 H Plt Count Lymph % (Auto) [place] % (Auto) 13.6 H [place] # (Auto) 2.0 H Baso # (Auto) 0.2 H Seg Neutrophils % Seg Neuts % (Manual) Lymphocytes % (Manual) Monocytes % (Manual) Nucleated RBC % Seg Neutrophils # 10.2 H Seg Neutrophils # Man Monocytes # (Manual) PT INR APTT D-Dimer ABG pH POC ABG pO2 ABG Hemoglobin ABG Sodium ABG Potassium ABG Chloride ABG Glucose Sodium Potassium Chloride Carbon Dioxide BUN Creatinine Glucose POC Glucose 263 H 276 H Hemoglobin A1c Calcium Magnesium Ferritin ALT Alkaline Phosphatase Lactate Dehydrogenase Total Creatine Kinase Troponin T C-Reactive Protein Albumin Triglycerides Cholesterol LDL Cholesterol Direct HDL Cholesterol Arterial Blood Glucose Vancomycin Trough Random Vancomycin 04/20/20 04/20/20 04/20/20 05:19 07:22 10:17 WBC Hgb MCV MCH MCHC RDW Plt Count Lymph % (Auto) [place] % (Auto) [place] # (Auto) Baso # (Auto) Seg Neutrophils % Seg Neuts % (Manual) Lymphocytes % (Manual) Monocytes % (Manual) Nucleated RBC % Seg Neutrophils # Seg Neutrophils # Man Monocytes # (Manual) PT INR APTT D-Dimer ABG pH POC ABG pO2 ABG Hemoglobin ABG Sodium ABG Potassium ABG Chloride ABG Glucose Sodium 154 H Potassium Chloride 119.6 H Carbon Dioxide BUN 24 H Creatinine Glucose 298 H POC Glucose 227 H Hemoglobin A1c Calcium Magnesium Ferritin ALT 58 H Alkaline Phosphatase 150 H Lactate Dehydrogenase Total Creatine Kinase Troponin T C-Reactive Protein Albumin 3.3 L Triglycerides Cholesterol LDL Cholesterol Direct HDL Cholesterol Arterial Blood Glucose Vancomycin Trough 56.2 H Random Vancomycin 04/20/20 04/20/20 04/20/20 10:57 16:05 16:15 WBC Hgb MCV MCH MCHC RDW Plt Count Lymph % (Auto) [place] % (Auto) [place] # (Auto) Baso # (Auto) Seg Neutrophils % Seg Neuts % (Manual) Lymphocytes % (Manual) Monocytes % (Manual) Nucleated RBC % Seg Neutrophils # Seg Neutrophils # Man Monocytes # (Manual) PT INR APTT D-Dimer ABG pH POC ABG pO2 ABG Hemoglobin ABG Sodium ABG Potassium ABG Chloride ABG Glucose Sodium 156 H Potassium Chloride 122.0 H Carbon Dioxide BUN 26 H Creatinine 1.4 H D Glucose 226 H POC Glucose 222 H 183 H Hemoglobin A1c Calcium Magnesium Ferritin ALT Alkaline Phosphatase Lactate Dehydrogenase Total Creatine Kinase Troponin T C-Reactive Protein Albumin Triglycerides Cholesterol LDL Cholesterol Direct HDL Cholesterol Arterial Blood Glucose Vancomycin Trough Random Vancomycin 04/20/20 04/21/20 04/21/20 18:17 03:45 05:24 WBC 14.9 H Hgb 9.7 L MCV 76 L MCH 22 L MCHC 29 L RDW 16.6 H Plt Count 462 H Lymph % (Auto) [place] % (Auto) [place] # (Auto) Baso # (Auto) Seg Neutrophils % Seg Neuts % (Manual) 71.0 H Lymphocytes % (Manual) Monocytes % (Manual) 12.0 H Nucleated RBC % Seg Neutrophils # Seg Neutrophils # Man 10.6 H Monocytes # (Manual) 1.8 H PT INR APTT D-Dimer ABG pH 7.286 L POC ABG pO2 137.2 H 145.5 H ABG Hemoglobin 11.1 L 10.6 L ABG Sodium 153.2 H 153.1 H ABG Potassium 3.2 L ABG Chloride 121.0 H 120.0 H ABG Glucose 256 H 223 H Sodium Potassium Chloride Carbon Dioxide BUN Creatinine Glucose POC Glucose Hemoglobin A1c Calcium Magnesium Ferritin ALT Alkaline Phosphatase Lactate Dehydrogenase Total Creatine Kinase Troponin T C-Reactive Protein Albumin Triglycerides Cholesterol LDL Cholesterol Direct HDL Cholesterol Arterial Blood Glucose 256 H 223 H Vancomycin Trough Random Vancomycin 04/21/20 04/21/20 04/21/20 05:24 09:00 12:14 WBC Hgb MCV MCH MCHC RDW Plt Count Lymph % (Auto) [place] % (Auto) [place] # (Auto) Baso # (Auto) Seg Neutrophils % Seg Neuts % (Manual) Lymphocytes % (Manual) Monocytes % (Manual) Nucleated RBC % Seg Neutrophils # Seg Neutrophils # Man Monocytes # (Manual) PT INR APTT D-Dimer ABG pH POC ABG pO2 ABG Hemoglobin ABG Sodium ABG Potassium ABG Chloride ABG Glucose Sodium 154 H Potassium 3.4 L Chloride 121.3 H Carbon Dioxide 19 L D BUN 28 H Creatinine 1.3 H Glucose 230 H POC Glucose 197 H Hemoglobin A1c Calcium Magnesium Ferritin ALT Alkaline Phosphatase 136 H Lactate Dehydrogenase Total Creatine Kinase Troponin T C-Reactive Protein Albumin 3.2 L Triglycerides Cholesterol LDL Cholesterol Direct HDL Cholesterol Arterial Blood Glucose Vancomycin Trough Random Vancomycin 41.4 H - Diagnostic Findings Chest x-ray: image reviewed (Hilum does appear full but lung parenchyma is clear) Assessment and Plan 54 y/o female obese with prior history of sarcoid now with altered mental state and intubated at recommendation of neurology secondary to GCS 1. Pulm-Respiratory beebe, minimal vent settings. Breathing over vent. Extubatable by most standards. Holding on this today based on IMS note and history from daughter. Will continue to hold all sedatives. Await read on CT of head. 2. Neuro-Neurology concerned for acute stroke vs neuro sarcoid. Follow up Head CT. Also requesting MRI/MRA of head and neck. Also needs EEG and LP. ID following as well. 3. ID- Follow up ID recs for today, reviewed note 4. Guarded prognosis. CCT 31 minutes.
[2020-04-21] MEDS ORDERED: DEXTROSE 5% IN WATER 1,000 ML IV SCH (18:00)
[2020-04-21 18:54] LABS: Calcium 9.1 mg/dL (8.4-10.2)
[2020-04-21 19:05] LABS: Creatinine,Urine 190.1 mg/dL (0.1-20.0)
[2020-04-21 19:12] LABS: Amorphous Crystals,Urine Few; Bacteria,Urine 3+ /HPF (Negative); Bilirubin,Urine NEG (Negative); Blood,Urine SM (Negative); Color,Urine Amber (Yellow); Granular Casts,Urine 6 /LPF; Hyaline Casts,Urine 3 /LPF; Mucus,Urine FEW /HPF; Urobilinogen,Urine < 2.0 mg/dL (<2.0)
[2020-04-21] MEDS: INSULIN GLARGINE 100 UNITS/ML SUB-Q SCH (23:47)
[2020-04-22] MEDS: CEFEPIME/NS 2 GM/100 ML 2 GM/100 ML BAG IV SCH ×4 (01:56→09:25)
[2020-04-22] MEDS: INSULIN LISPRO 100 UNIT/ML VIAL 3 mL SUB-Q SCH ×5 (01:56→17:52)
[2020-04-22 05:07] LABS: ABG HCO3 19.2 mmol/L (20.0-26.0); ABG Methemoglobin 0.5 % (0.0-1.5); ABG Oxygen Saturation 96.9 % (95.0-99.0); ABG PCO2 32.4 mm Hg; ABG PH 7.39 pH Units (7.350-7.450); ABG PO2 85.3 mm Hg (80.0-90.0)
[2020-04-22 05:21] LABS: Basophils # (Auto) 0.1 K/mm3 (0.0-0.1); Basophils % (Auto) 0.7 % (0.0-1.8); Eosinophils # (Auto) 0.2 K/mm3 (0.0-0.4); Eosinophils % (Auto) 1.7 % (0.0-4.3); Hematocrit 29.9 % (30.3-42.9); Hemoglobin 9.1 gm/dl (10.1-14.3); Lymphocytes # (Auto) 1.6 K/mm3 (1.2-5.4); Lymphocytes % (Auto) 12.6 % (13.4-35.0); Mean Corpuscular HGB Conc 31 % (30-34); Mean Corpuscular Volume 75 fl (79-97); Monocytes # (Auto) 1.2 K/mm3 (0.0-0.8); Platelet Count 382 K/mm3 (140-440); Red Blood Count 4.01 M/mm3 (3.65-5.03); Red Cell Distribution Width 16.1 % (13.2-15.2)
--- NOTE | 2020-04-22 05:35 | XRay Report ---
CHEST 1 VIEW [id number] INDICATION / CLINICAL INFORMATION: follow up respiratory failure COMPARISON: 04/21/2020 FINDINGS: SUPPORT DEVICES: Stable HEART / MEDIASTINUM: Stable LUNGS / PLEURA: Right basilar atelectasis has nearly cleared. Mild left basilar atelectasis is seen. No pneumothorax. ADDITIONAL FINDINGS: No significant additional findings. Signer Name: Favian Watson MD Signed: 04/22/2020 5:31 AM Workstation Name: [id number]
[2020-04-22 05:41] LABS: Albumin 3.2 g/dL (3.9-5)
[2020-04-22] MEDS: NITROGLYCERIN 0.2 MG PATCH 24HR TD SCH (06:41)
[2020-04-22] MEDS: LEVOTHYROXINE 50 MCG TAB PO SCH (06:41)
[2020-04-22] MEDS: METOPROLOL TARTRATE 50 MG TAB PO SCH ×3 (09:01→21:47)
[2020-04-22] MEDS: HYDROCORTISONE 10 MG TAB PO SCH ×2 (09:01→21:57)
[2020-04-22] MEDS: lamoTRIgine 25 MG TAB PO SCH ×2 (09:01→21:57)
[2020-04-22] MEDS: POTASSIUM CHLORIDE 20 MEQ 20 MEQ/100 ML BAG IV SCH ×3 (09:01→11:07)
[2020-04-22] MEDS: ASPIRIN 81 MG TAB CHEW PO SCH (09:01)
[2020-04-22] MEDS: AMIODARONE 200 MG TAB PO SCH ×2 (09:02→21:47)
[2020-04-22] MEDS: CHOLECALCIFEROL (VIT D3) 1000 UNIT (25 mcg) TAB PO SCH (09:02)
[2020-04-22] MEDS: CLOPIDOGREL 75 MG TAB PO SCH (09:02)
[2020-04-22] MEDS: POTASSIUM CHLORIDE 40 MEQ in DEXTROSE 5% IN WATER 1,000 ML IV SCH ×2 (09:02→21:56)
[2020-04-22] MEDS: HEPARIN 5,000 UNIT/1 ML VIAL SUB-Q SCH ×2 (09:02→21:48)
[2020-04-22] MEDS: PANTOPRAZOLE 40 MG INJ IV SCH ×2 (09:02→21:57)
[2020-04-22] MEDS: PREGABALIN 75 MG CAP PO SCH ×2 (09:25→21:58)
--- NOTE | 2020-04-22 09:54 | Progress Note ---
Assessment and Plan Cultures: Blood culture 04/16/2020 no growth today. SARS-CoV-2 PCR negative. Assessment: 54 years old female with morbid obesity, JANI, PUD, hyperlipidemia, diabetes mellitus, hypertension, GERD, peripheral neuropathy, ? Meningioma status post craniotomy, previous coagulase-negative staph bacteremia and abdominal wall abscess, admitted on 04/16/2020 after being found unresponsive and diaphoretic at home: #Severe sepsis: present on admission with fever, leukocytosis, tachycardia, hypotension; unclear source. ?Abdominal wall cellulitis. Chest x-ray unremarkable. Urinalysis negative. Elevated procalcitonin, though in the setting of JOEL. SARS-CoV-2 PCR negative. #Abdominal wall cellulitis?/deep abdominal folds with maceration: Patient history of abdominal wall abscess. #Right fifth toe wound: Noninfected? #JOEL: Improved #Diabetes mellitus uncontrolled #Encephalopathy: Patient found unresponsive. At baseline she is bedbound. Neurology also on board. Recommendations: -Cefepime de-escalated to Ceftriaxone -Continue IV Ceftriaxone and Vancomycin for now -f/u CT abdomen and pelvis with contrast to look for source of infection -Follow-up lumbar puncture and CSF analysis to rule out meningitis/encephalitis, patient with history of craniotomy -if CT abdomen and LP do not show infection, would stop antibiotics Dejuan Mejia MD, FACP [facility] ([facility] O: [phone] F: [phone] Subjective Date of service: 04/22/20 Principal diagnosis: Elevated cardiac enzymes Interval history: No fever. Remains awake on the vent. Able to follow basic commands. Pressors were weaned off. Objective - Exam Narrative Exam: Physical Exam: Constitutional: Awake, following commands, intubated, on the vent Head, Ears, Nose: Normocephalic, atraumatic. External ears, nose normal Eyes: Conjunctivae/corneas clear. No icterus. No ptosis. Neck: intubated Oral: intubated Cardiovascular: S1, S2 + Respiratory: AE fair bilaterally and equal GI: Soft, obese, large pannus, non-tender; bowel sounds + Musculoskeletal: trace pedal edema. Skin: No rash or abscess Hem/Lymphatic: No palpable cervical or supraclavicular nodes. No lymphangitis Psych: no agitation Neurological: Awake, following commands, intubated, on the vent, exam limited - Constitutional Vitals: Vital Signs Temp Pulse Resp BP Pulse Ox 98.9 F 87 32 H 130/70 100 04/22/20 04:00 04/22/20 09:01 04/22/20 08:40 04/22/20 09:01 04/22/20 08:40 Temperature -Last 24 Hours Temperature 98.9 F Temperature 99.0 F Temperature 98.8 F Temperature 98.3 F - Labs CBC & Chem 7: 04/22/20 04:54 04/22/20 04:54 Labs: Abnormal lab results 04/21/20 04/21/20 04/21/20 Range/Units 12:14 16:54 18:12 WBC (4.5-11.0) K/mm3 Hgb (10.1-14.3) gm/dl Hct (30.3-42.9) % MCV (79-97) fl MCH (28-32) pg RDW (13.2-15.2) % Lymph % (Auto) (13.4-35.0) % [place] % (Auto) (0.0-7.3) % [place] # (Auto) (0.0-0.8) K/mm3 Seg Neutrophils % (40.0-70.0) % Seg Neutrophils # (1.8-7.7) K/mm3 ABG HCO3 (20.0-26.0) mmol/L ABG Base Excess (-2.0-3.0) mmol/L ABG Hemoglobin (12.0-16.0) gm/dl Oxyhemoglobin (95.0-99.0) % Sodium 151 H (137-145) mmol/L Potassium 3.1 L (3.6-5.0) mmol/L Chloride 118.7 H (98-107) mmol/L Carbon Dioxide 20 L (22-30) mmol/L BUN 30 H (7-17) mg/dL Creatinine 1.3 H (0.6-1.2) mg/dL Glucose 243 H (65-100) mg/dL POC Glucose 197 H 195 H (70-105) mg/dL Albumin (3.9-5) g/dL Urine WBC (Auto) (0.0-6.0) /HPF Urine Creatinine (0.1-20.0) mg/dL 04/21/20 04/21/20 04/21/20 Range/Units 23:09 Unknown Unknown WBC (4.5-11.0) K/mm3 Hgb (10.1-14.3) gm/dl Hct (30.3-42.9) % MCV (79-97) fl MCH (28-32) pg RDW (13.2-15.2) % Lymph % (Auto) (13.4-35.0) % [place] % (Auto) (0.0-7.3) % [place] # (Auto) (0.0-0.8) K/mm3 Seg Neutrophils % (40.0-70.0) % Seg Neutrophils # (1.8-7.7) K/mm3 ABG HCO3 (20.0-26.0) mmol/L ABG Base Excess (-2.0-3.0) mmol/L ABG Hemoglobin (12.0-16.0) gm/dl Oxyhemoglobin (95.0-99.0) % Sodium (137-145) mmol/L Potassium (3.6-5.0) mmol/L Chloride (98-107) mmol/L Carbon Dioxide (22-30) mmol/L BUN (7-17) mg/dL Creatinine (0.6-1.2) mg/dL Glucose (65-100) mg/dL POC Glucose 179 H (70-105) mg/dL Albumin (3.9-5) g/dL Urine WBC (Auto) 21.0 H (0.0-6.0) /HPF Urine Creatinine 190.1 H (0.1-20.0) mg/dL 04/22/20 04/22/20 04/22/20 Range/Units 04:40 04:54 04:54 WBC 13.0 H (4.5-11.0) K/mm3 Hgb 9.1 L (10.1-14.3) gm/dl Hct 29.9 L (30.3-42.9) % MCV 75 L (79-97) fl MCH 23 L (28-32) pg RDW 16.1 H (13.2-15.2) % Lymph % (Auto) 12.6 L (13.4-35.0) % [place] % (Auto) 9.0 H (0.0-7.3) % [place] # (Auto) 1.2 H (0.0-0.8) K/mm3 Seg Neutrophils % 76.0 H (40.0-70.0) % Seg Neutrophils # 9.9 H (1.8-7.7) K/mm3 ABG HCO3 19.2 L (20.0-26.0) mmol/L ABG Base Excess -5.0 L (-2.0-3.0) mmol/L ABG Hemoglobin 10.0 L (12.0-16.0) gm/dl Oxyhemoglobin 94.8 L (95.0-99.0) % Sodium 151 H (137-145) mmol/L Potassium 2.8 L* (3.6-5.0) mmol/L Chloride 118.7 H (98-107) mmol/L Carbon Dioxide 21 L (22-30) mmol/L BUN 28 H (7-17) mg/dL Creatinine 1.3 H (0.6-1.2) mg/dL Glucose 227 H (65-100) mg/dL POC Glucose (70-105) mg/dL Albumin 3.2 L (3.9-5) g/dL Urine WBC (Auto) (0.0-6.0) /HPF Urine Creatinine (0.1-20.0) mg/dL 04/22/20 Range/Units 05:30 WBC (4.5-11.0) K/mm3 Hgb (10.1-14.3) gm/dl Hct (30.3-42.9) % MCV (79-97) fl MCH (28-32) pg RDW (13.2-15.2) % Lymph % (Auto) (13.4-35.0) % [place] % (Auto) (0.0-7.3) % [place] # (Auto) (0.0-0.8) K/mm3 Seg Neutrophils % (40.0-70.0) % Seg Neutrophils # (1.8-7.7) K/mm3 ABG HCO3 (20.0-26.0) mmol/L ABG Base Excess (-2.0-3.0) mmol/L ABG Hemoglobin (12.0-16.0) gm/dl Oxyhemoglobin (95.0-99.0) % Sodium (137-145) mmol/L Potassium (3.6-5.0) mmol/L Chloride (98-107) mmol/L Carbon Dioxide (22-30) mmol/L BUN (7-17) mg/dL Creatinine (0.6-1.2) mg/dL Glucose (65-100) mg/dL POC Glucose 182 H (70-105) mg/dL Albumin (3.9-5) g/dL Urine WBC (Auto) (0.0-6.0) /HPF Urine Creatinine (0.1-20.0) mg/dL
--- NOTE | 2020-04-22 11:30 | Progress Note ---
Assessment and Plan 54 y/o female obese with prior history of sarcoid now with altered mental state and intubated at recommendation of neurology secondary to GCS 1. Pulm-Extubate today. Bipap QHS and PRN 2. Neuro-Follow up neuro 3. ID- Follow up ID recs for today, reviewed note from yesterday 4. Guarded prognosis. Will transfer out of unit post extubation. CCT 31 minutes. Subjective Date of service: 04/22/20 Principal diagnosis: Elevated cardiac enzymes Interval history: No acute events. Awake and alert. Wants tube out. States that she has JANI but does not wear her machine every night. No new recs from neuro on yesterday. Unable to fit in scanner for CT and MRI. Objective Vital Signs - 12hr 04/21/20 04/21/20 04/22/20 23:30 23:59 00:00 Temperature 99.0 F Pulse Rate 83 82 Respiratory 25 H 24 Rate Blood Pressure 120/55 O2 Sat by Pulse 100 100 Oximetry 04/22/20 04/22/20 04/22/20 00:01 00:30 00:42 Temperature Pulse Rate 80 74 73 Respiratory 25 H 21 Rate Blood Pressure 120/53 127/67 127/67 O2 Sat by Pulse 100 100 100 Oximetry 04/22/20 04/22/20 04/22/20 01:00 01:30 02:00 Temperature Pulse Rate 75 76 78 Respiratory 22 22 21 Rate Blood Pressure 124/64 109/63 119/61 O2 Sat by Pulse 100 100 100 Oximetry 04/22/20 04/22/20 04/22/20 02:30 03:00 03:30 Temperature Pulse Rate 83 86 82 Respiratory 26 H 24 28 H Rate Blood Pressure 113/54 112/55 113/48 O2 Sat by Pulse 100 100 100 Oximetry 04/22/20 04/22/20 04/22/20 04:00 04:30 04:59 Temperature 98.9 F Pulse Rate 85 75 76 Respiratory 25 H 22 Rate Blood Pressure 119/59 131/54 121/58 O2 Sat by Pulse 100 100 100 Oximetry 04/22/20 04/22/20 04/22/20 05:01 05:30 06:00 Temperature Pulse Rate 79 87 88 Respiratory 24 24 22 Rate Blood Pressure 121/58 130/59 131/58 O2 Sat by Pulse 100 100 100 Oximetry 04/22/20 04/22/2020 06:30 06:41 07:01 Temperature Pulse Rate 88 86 83 Respiratory 28 H 26 H Rate Blood Pressure 134/67 134/67 132/58 O2 Sat by Pulse 100 100 Oximetry 04/22/20 04/22/20 04/22/20 07:31 08:00 08:01 Temperature Pulse Rate 84 86 83 Respiratory 21 26 H 25 H Rate Blood Pressure 130/68 123/60 O2 Sat by Pulse 100 100 100 Oximetry 04/22/20 04/22/20 04/22/20 08:31 08:40 09:00 Temperature Pulse Rate 82 85 85 Respiratory 27 H 32 H 17 Rate Blood Pressure 129/50 135/63 130/70 O2 Sat by Pulse 100 100 100 Oximetry 04/22/20 04/22/20 09:01 09:30 Temperature Pulse Rate 87 89 Respiratory 30 H Rate Blood Pressure 130/70 135/63 O2 Sat by Pulse 100 Oximetry Constitutional: no acute distress, alert, other (morbidly obese) Eyes: non-icteric ENT: other (orally intubated, not on sedation.) Neck: supple, other (large in circumference) Effort: normal Ascultation: Bilateral: clear Percussion: Bilateral: not dull Cardiovascular: regular rate and rhythm Gastrointestinal: normoactive bowel sounds, soft, other (obese) Extremities: other (right foot rapped, poor skin integrity on left) CBC and BMP: 04/22/20 04:54 04/22/20 04:54 ABG, PT/INR, D-dimer: ABG ABG pH 7.390 pH Units (7.350-7.450) 04/22/20 04:40 POC ABG pCO2 37.8 mmHg (32.0-48.0) 04/21/20 03:45 ABG pCO2 32.4 mm Hg 04/22/20 04:40 POC ABG pO2 145.5 mmHg (83-108) H 04/21/20 03:45 ABG pO2 85.3 mm Hg (80.0-90.0) 04/22/20 04:40 POC ABG HCO3 20.1 04/21/20 03:45 ABG O2 Saturation 96.9 % (95.0-99.0) 04/22/20 04:40 PT/INR, D-dimer PT 14.3 Sec. (12.2-14.9) 04/21/20 09:00 INR 1.12 (0.87-1.13) 04/21/20 09:00 D-Dimer 1201.23 ng/mlDDU (0-234) H 04/17/20 10:38 Abnormal lab findings: Abnormal Labs 04/16/20 04/16/20 04/16/20 19:29 19:29 19:31 WBC Hgb Hct MCV MCH MCHC RDW Plt Count Lymph % (Auto) [place] % (Auto) [place] # (Auto) Baso # (Auto) Seg Neutrophils % Seg Neuts % (Manual) Lymphocytes % (Manual) Monocytes % (Manual) Nucleated RBC % Seg Neutrophils # Seg Neutrophils # Man Monocytes # (Manual) PT 19.5 H INR 1.64 H APTT 43.3 H D-Dimer ABG pH POC ABG pO2 ABG HCO3 ABG Base Excess ABG Hemoglobin ABG Sodium ABG Potassium ABG Chloride ABG Glucose Oxyhemoglobin Sodium Potassium 5.3 H Chloride Carbon Dioxide 20 L BUN 49 H Creatinine 1.7 H Glucose 295 H POC Glucose 243 H Hemoglobin A1c Calcium Magnesium Ferritin ALT Alkaline Phosphatase Lactate Dehydrogenase Total Creatine Kinase Troponin T 0.067 H C-Reactive Protein Albumin Triglycerides 171 H Cholesterol 212 H LDL Cholesterol Direct 147 H HDL Cholesterol 35 L Arterial Blood Glucose Urine WBC (Auto) Urine Creatinine Vancomycin Trough Random Vancomycin 04/16/20 04/16/20 04/17/20 19:45 20:37 08:43 WBC 20.6 H Hgb Hct MCV 75 L MCH 24 L MCHC RDW 15.6 H Plt Count 470 H Lymph % (Auto) [place] % (Auto) [place] # (Auto) Baso # (Auto) Seg Neutrophils % Seg Neuts % (Manual) 71.0 H Lymphocytes % (Manual) Monocytes % (Manual) 10.0 H Nucleated RBC % Seg Neutrophils # Seg Neutrophils # Man 14.6 H Monocytes # (Manual) 2.1 H PT INR APTT D-Dimer ABG pH POC ABG pO2 ABG HCO3 ABG Base Excess ABG Hemoglobin ABG Sodium ABG Potassium ABG Chloride ABG Glucose Oxyhemoglobin Sodium Potassium Chloride Carbon Dioxide BUN Creatinine Glucose POC Glucose 147 H Hemoglobin A1c Calcium Magnesium 2.70 H Ferritin ALT Alkaline Phosphatase Lactate Dehydrogenase Total Creatine Kinase 303 H Troponin T C-Reactive Protein Albumin Triglycerides Cholesterol LDL Cholesterol Direct HDL Cholesterol Arterial Blood Glucose Urine WBC (Auto) Urine Creatinine Vancomycin Trough Random Vancomycin 04/17/20 04/17/20 04/17/20 10:38 10:38 10:38 WBC Hgb Hct MCV MCH MCHC RDW Plt Count Lymph % (Auto) [place] % (Auto) [place] # (Auto) Baso # (Auto) Seg Neutrophils % Seg Neuts % (Manual) Lymphocytes % (Manual) Monocytes % (Manual) Nucleated RBC % Seg Neutrophils # Seg Neutrophils # Man Monocytes # (Manual) PT INR APTT D-Dimer 1201.23 H ABG pH POC ABG pO2 ABG HCO3 ABG Base Excess ABG Hemoglobin ABG Sodium ABG Potassium ABG Chloride ABG Glucose Oxyhemoglobin Sodium Potassium Chloride Carbon Dioxide BUN Creatinine Glucose 172 H POC Glucose Hemoglobin A1c Calcium Magnesium Ferritin 39707.0 H ALT Alkaline Phosphatase Lactate Dehydrogenase 246 H Total Creatine Kinase Troponin T C-Reactive Protein 13.90 H Albumin Triglycerides Cholesterol LDL Cholesterol Direct HDL Cholesterol Arterial Blood Glucose Urine WBC (Auto) Urine Creatinine Vancomycin Trough Random Vancomycin 04/17/20 04/17/20 04/17/20 10:38 10:38 11:50 WBC 18.0 H Hgb Hct MCV 75 L MCH 23 L MCHC RDW 15.9 H Plt Count Lymph % (Auto) [place] % (Auto) [place] # (Auto) Baso # (Auto) Seg Neutrophils % Seg Neuts % (Manual) 83.0 H Lymphocytes % (Manual) 11.0 L Monocytes % (Manual) Nucleated RBC % 1.0 H Seg Neutrophils # Seg Neutrophils # Man 14.9 H Monocytes # (Manual) 0.9 H PT INR APTT D-Dimer ABG pH POC ABG pO2 ABG HCO3 ABG Base Excess ABG Hemoglobin ABG Sodium ABG Potassium ABG Chloride ABG Glucose Oxyhemoglobin Sodium Potassium 5.2 H Chloride 107.3 H Carbon Dioxide 21 L BUN 44 H Creatinine Glucose 167 H POC Glucose 146 H Hemoglobin A1c Calcium 10.3 H Magnesium Ferritin ALT Alkaline Phosphatase Lactate Dehydrogenase Total Creatine Kinase Troponin T C-Reactive Protein Albumin Triglycerides Cholesterol LDL Cholesterol Direct HDL Cholesterol Arterial Blood Glucose Urine WBC (Auto) Urine Creatinine Vancomycin Trough Random Vancomycin 04/17/20 04/17/20 04/18/20 17:10 20:41 05:23 WBC Hgb Hct MCV MCH MCHC RDW Plt Count Lymph % (Auto) [place] % (Auto) [place] # (Auto) Baso # (Auto) Seg Neutrophils % Seg Neuts % (Manual) Lymphocytes % (Manual) Monocytes % (Manual) Nucleated RBC % Seg Neutrophils # Seg Neutrophils # Man Monocytes # (Manual) PT INR APTT D-Dimer ABG pH POC ABG pO2 ABG HCO3 ABG Base Excess ABG Hemoglobin ABG Sodium ABG Potassium ABG Chloride ABG Glucose Oxyhemoglobin Sodium Potassium Chloride Carbon Dioxide BUN Creatinine Glucose POC Glucose 165 H 212 H Hemoglobin A1c 7.6 H Calcium Magnesium Ferritin ALT Alkaline Phosphatase Lactate Dehydrogenase Total Creatine Kinase Troponin T C-Reactive Protein Albumin Triglycerides Cholesterol LDL Cholesterol Direct HDL Cholesterol Arterial Blood Glucose Urine WBC (Auto) Urine Creatinine Vancomycin Trough Random Vancomycin 04/18/20 04/18/20 04/18/20 05:23 05:23 07:33 WBC 16.6 H Hgb Hct MCV 76 L MCH 24 L MCHC RDW 15.9 H Plt Count Lymph % (Auto) 9.8 L [place] % (Auto) 12.9 H [place] # (Auto) 2.1 H Baso # (Auto) Seg Neutrophils % 75.7 H Seg Neuts % (Manual) Lymphocytes % (Manual) Monocytes % (Manual) Nucleated RBC % Seg Neutrophils # 12.6 H Seg Neutrophils # Man Monocytes # (Manual) PT INR APTT D-Dimer ABG pH POC ABG pO2 ABG HCO3 ABG Base Excess ABG Hemoglobin ABG Sodium ABG Potassium ABG Chloride ABG Glucose Oxyhemoglobin Sodium 148 H Potassium 5.5 H Chloride 114.3 H Carbon Dioxide 19 L BUN 31 H Creatinine Glucose 201 H POC Glucose 178 H Hemoglobin A1c Calcium Magnesium Ferritin ALT Alkaline Phosphatase Lactate Dehydrogenase Total Creatine Kinase Troponin T C-Reactive Protein Albumin Triglycerides Cholesterol LDL Cholesterol Direct HDL Cholesterol Arterial Blood Glucose Urine WBC (Auto) Urine Creatinine Vancomycin Trough Random Vancomycin 04/18/20 04/18/20 04/18/20 11:38 16:07 20:44 WBC Hgb Hct MCV MCH MCHC RDW Plt Count Lymph % (Auto) [place] % (Auto) [place] # (Auto) Baso # (Auto) Seg Neutrophils % Seg Neuts % (Manual) Lymphocytes % (Manual) Monocytes % (Manual) Nucleated RBC % Seg Neutrophils # Seg Neutrophils # Man Monocytes # (Manual) PT INR APTT D-Dimer ABG pH POC ABG pO2 ABG HCO3 ABG Base Excess ABG Hemoglobin ABG Sodium ABG Potassium ABG Chloride ABG Glucose Oxyhemoglobin Sodium Potassium Chloride Carbon Dioxide BUN Creatinine Glucose POC Glucose 187 H 248 H 243 H Hemoglobin A1c Calcium Magnesium Ferritin ALT Alkaline Phosphatase Lactate Dehydrogenase Total Creatine Kinase Troponin T C-Reactive Protein Albumin Triglycerides Cholesterol LDL Cholesterol Direct HDL Cholesterol Arterial Blood Glucose Urine WBC (Auto) Urine Creatinine Vancomycin Trough Random Vancomycin 04/19/20 04/19/20 04/19/20 04:55 07:40 12:01 WBC Hgb Hct MCV MCH MCHC RDW Plt Count Lymph % (Auto) [place] % (Auto) [place] # (Auto) Baso # (Auto) Seg Neutrophils % Seg Neuts % (Manual) Lymphocytes % (Manual) Monocytes % (Manual) Nucleated RBC % Seg Neutrophils # Seg Neutrophils # Man Monocytes # (Manual) PT INR APTT D-Dimer ABG pH POC ABG pO2 ABG HCO3 ABG Base Excess ABG Hemoglobin ABG Sodium ABG Potassium ABG Chloride ABG Glucose Oxyhemoglobin Sodium 152 H Potassium Chloride 117.2 H Carbon Dioxide BUN 27 H Creatinine Glucose 325 H POC Glucose 258 H 251 H Hemoglobin A1c Calcium Magnesium Ferritin ALT Alkaline Phosphatase Lactate Dehydrogenase Total Creatine Kinase Troponin T C-Reactive Protein Albumin Triglycerides Cholesterol LDL Cholesterol Direct HDL Cholesterol Arterial Blood Glucose Urine WBC (Auto) Urine Creatinine Vancomycin Trough Random Vancomycin 04/19/20 04/19/20 04/20/20 16:19 21:41 05:19 WBC 14.8 H Hgb Hct MCV 77 L MCH 23 L MCHC RDW 16.5 H Plt Count Lymph % (Auto) [place] % (Auto) 13.6 H [place] # (Auto) 2.0 H Baso # (Auto) 0.2 H Seg Neutrophils % Seg Neuts % (Manual) Lymphocytes % (Manual) Monocytes % (Manual) Nucleated RBC % Seg Neutrophils # 10.2 H Seg Neutrophils # Man Monocytes # (Manual) PT INR APTT D-Dimer ABG pH POC ABG pO2 ABG HCO3 ABG Base Excess ABG Hemoglobin ABG Sodium ABG Potassium ABG Chloride ABG Glucose Oxyhemoglobin Sodium Potassium Chloride Carbon Dioxide BUN Creatinine Glucose POC Glucose 263 H 276 H Hemoglobin A1c Calcium Magnesium Ferritin ALT Alkaline Phosphatase Lactate Dehydrogenase Total Creatine Kinase Troponin T C-Reactive Protein Albumin Triglycerides Cholesterol LDL Cholesterol Direct HDL Cholesterol Arterial Blood Glucose Urine WBC (Auto) Urine Creatinine Vancomycin Trough Random Vancomycin 04/20/20 04/20/20 04/20/20 05:19 07:22 10:17 WBC Hgb Hct MCV MCH MCHC RDW Plt Count Lymph % (Auto) [place] % (Auto) [place] # (Auto) Baso # (Auto) Seg Neutrophils % Seg Neuts % (Manual) Lymphocytes % (Manual) Monocytes % (Manual) Nucleated RBC % Seg Neutrophils # Seg Neutrophils # Man Monocytes # (Manual) PT INR APTT D-Dimer ABG pH POC ABG pO2 ABG HCO3 ABG Base Excess ABG Hemoglobin ABG Sodium ABG Potassium ABG Chloride ABG Glucose Oxyhemoglobin Sodium 154 H Potassium Chloride 119.6 H Carbon Dioxide BUN 24 H Creatinine Glucose 298 H POC Glucose 227 H Hemoglobin A1c Calcium Magnesium Ferritin ALT 58 H Alkaline Phosphatase 150 H Lactate Dehydrogenase Total Creatine Kinase Troponin T C-Reactive Protein Albumin 3.3 L Triglycerides Cholesterol LDL Cholesterol Direct HDL Cholesterol Arterial Blood Glucose Urine WBC (Auto) Urine Creatinine Vancomycin Trough 56.2 H Random Vancomycin 04/20/20 04/20/20 04/20/20 10:57 16:05 16:15 WBC Hgb Hct MCV MCH MCHC RDW Plt Count Lymph % (Auto) [place] % (Auto) [place] # (Auto) Baso # (Auto) Seg Neutrophils % Seg Neuts % (Manual) Lymphocytes % (Manual) Monocytes % (Manual) Nucleated RBC % Seg Neutrophils # Seg Neutrophils # Man Monocytes # (Manual) PT INR APTT D-Dimer ABG pH POC ABG pO2 ABG HCO3 ABG Base Excess ABG Hemoglobin ABG Sodium ABG Potassium ABG Chloride ABG Glucose Oxyhemoglobin Sodium 156 H Potassium Chloride 122.0 H Carbon Dioxide BUN 26 H Creatinine 1.4 H D Glucose 226 H POC Glucose 222 H 183 H Hemoglobin A1c Calcium Magnesium Ferritin ALT Alkaline Phosphatase Lactate Dehydrogenase Total Creatine Kinase Troponin T C-Reactive Protein Albumin Triglycerides Cholesterol LDL Cholesterol Direct HDL Cholesterol Arterial Blood Glucose Urine WBC (Auto) Urine Creatinine Vancomycin Trough Random Vancomycin 04/20/20 04/21/20 04/21/20 18:17 03:45 05:24 WBC 14.9 H Hgb 9.7 L Hct MCV 76 L MCH 22 L MCHC 29 L RDW 16.6 H Plt Count 462 H Lymph % (Auto) [place] % (Auto) [place] # (Auto) Baso # (Auto) Seg Neutrophils % Seg Neuts % (Manual) 71.0 H Lymphocytes % (Manual) Monocytes % (Manual) 12.0 H Nucleated RBC % Seg Neutrophils # Seg Neutrophils # Man 10.6 H Monocytes # (Manual) 1.8 H PT INR APTT D-Dimer ABG pH 7.286 L POC ABG pO2 137.2 H 145.5 H ABG HCO3 ABG Base Excess ABG Hemoglobin 11.1 L 10.6 L ABG Sodium 153.2 H 153.1 H ABG Potassium 3.2 L ABG Chloride 121.0 H 120.0 H ABG Glucose 256 H 223 H Oxyhemoglobin Sodium Potassium Chloride Carbon Dioxide BUN Creatinine Glucose POC Glucose Hemoglobin A1c Calcium Magnesium Ferritin ALT Alkaline Phosphatase Lactate Dehydrogenase Total Creatine Kinase Troponin T C-Reactive Protein Albumin Triglycerides Cholesterol LDL Cholesterol Direct HDL Cholesterol Arterial Blood Glucose 256 H 223 H Urine WBC (Auto) Urine Creatinine Vancomycin Trough Random Vancomycin 04/21/20 04/21/20 04/21/20 05:24 09:00 12:14 WBC Hgb Hct MCV MCH MCHC RDW Plt Count Lymph % (Auto) [place] % (Auto) [place] # (Auto) Baso # (Auto) Seg Neutrophils % Seg Neuts % (Manual) Lymphocytes % (Manual) Monocytes % (Manual) Nucleated RBC % Seg Neutrophils # Seg Neutrophils # Man Monocytes # (Manual) PT INR APTT D-Dimer ABG pH POC ABG pO2 ABG HCO3 ABG Base Excess ABG Hemoglobin ABG Sodium ABG Potassium ABG Chloride ABG Glucose Oxyhemoglobin Sodium 154 H Potassium 3.4 L Chloride 121.3 H Carbon Dioxide 19 L D BUN 28 H Creatinine 1.3 H Glucose 230 H POC Glucose 197 H Hemoglobin A1c Calcium Magnesium Ferritin ALT Alkaline Phosphatase 136 H Lactate Dehydrogenase Total Creatine Kinase Troponin T C-Reactive Protein Albumin 3.2 L Triglycerides Cholesterol LDL Cholesterol Direct HDL Cholesterol Arterial Blood Glucose Urine WBC (Auto) Urine Creatinine Vancomycin Trough Random Vancomycin 41.4 H 04/21/20 04/21/20 04/21/20 16:54 18:12 23:09 WBC Hgb Hct MCV MCH MCHC RDW Plt Count Lymph % (Auto) [place] % (Auto) [place] # (Auto) Baso # (Auto) Seg Neutrophils % Seg Neuts % (Manual) Lymphocytes % (Manual) Monocytes % (Manual) Nucleated RBC % Seg Neutrophils # Seg Neutrophils # Man Monocytes # (Manual) PT INR APTT D-Dimer ABG pH POC ABG pO2 ABG HCO3 ABG Base Excess ABG Hemoglobin ABG Sodium ABG Potassium ABG Chloride ABG Glucose Oxyhemoglobin Sodium 151 H Potassium 3.1 L Chloride 118.7 H Carbon Dioxide 20 L BUN 30 H Creatinine 1.3 H Glucose 243 H POC Glucose 195 H 179 H Hemoglobin A1c Calcium Magnesium Ferritin ALT Alkaline Phosphatase Lactate Dehydrogenase Total Creatine Kinase Troponin T C-Reactive Protein Albumin Triglycerides Cholesterol LDL Cholesterol Direct HDL Cholesterol Arterial Blood Glucose Urine WBC (Auto) Urine Creatinine Vancomycin Trough Random Vancomycin 04/21/20 04/21/20 04/22/20 Unknown Unknown 04:40 WBC Hgb Hct MCV MCH MCHC RDW Plt Count Lymph % (Auto) [place] % (Auto) [place] # (Auto) Baso # (Auto) Seg Neutrophils % Seg Neuts % (Manual) Lymphocytes % (Manual) Monocytes % (Manual) Nucleated RBC % Seg Neutrophils # Seg Neutrophils # Man Monocytes # (Manual) PT INR APTT D-Dimer ABG pH POC ABG pO2 ABG HCO3 19.2 L ABG Base Excess -5.0 L ABG Hemoglobin 10.0 L ABG Sodium ABG Potassium ABG Chloride ABG Glucose Oxyhemoglobin 94.8 L Sodium Potassium Chloride Carbon Dioxide BUN Creatinine Glucose POC Glucose Hemoglobin A1c Calcium Magnesium Ferritin ALT Alkaline Phosphatase Lactate Dehydrogenase Total Creatine Kinase Troponin T C-Reactive Protein Albumin Triglycerides Cholesterol LDL Cholesterol Direct HDL Cholesterol Arterial Blood Glucose Urine WBC (Auto) 21.0 H Urine Creatinine 190.1 H Vancomycin Trough Random Vancomycin 04/22/20 04/22/20 04/22/20 04:54 04:54 05:30 WBC 13.0 H Hgb 9.1 L Hct 29.9 L MCV 75 L MCH 23 L MCHC RDW 16.1 H Plt Count Lymph % (Auto) 12.6 L [place] % (Auto) 9.0 H [place] # (Auto) 1.2 H Baso # (Auto) Seg Neutrophils % 76.0 H Seg Neuts % (Manual) Lymphocytes % (Manual) Monocytes % (Manual) Nucleated RBC % Seg Neutrophils # 9.9 H Seg Neutrophils # Man Monocytes # (Manual) PT INR APTT D-Dimer ABG pH POC ABG pO2 ABG HCO3 ABG Base Excess ABG Hemoglobin ABG Sodium ABG Potassium ABG Chloride ABG Glucose Oxyhemoglobin Sodium 151 H Potassium 2.8 L* Chloride 118.7 H Carbon Dioxide 21 L BUN 28 H Creatinine 1.3 H Glucose 227 H POC Glucose 182 H Hemoglobin A1c Calcium Magnesium Ferritin ALT Alkaline Phosphatase Lactate Dehydrogenase Total Creatine Kinase Troponin T C-Reactive Protein Albumin 3.2 L Triglycerides Cholesterol LDL Cholesterol Direct HDL Cholesterol Arterial Blood Glucose Urine WBC (Auto) Urine Creatinine Vancomycin Trough Random Vancomycin
--- NOTE | 2020-04-22 12:46 | Progress Note ---
Assessment and Plan Assessment and plan: 54-year-old female with multiple medical problems including Peptic ulcer disease, Hypothyroidism, JANI, HLD, insulin-dependent diabetes, hypertension, and GERD, peripheral neuropathy and hyperlipidemia was found unresponsive and diaphoretic at home. In the ED the patient was feeling groggy and admits to shortness of breath and cough. Very when asked if she remembers how she ended up in the emergency room patient could not answer the question. Very poor historian. No fever or chills. Not known whether exposed to coronavirus. Early this year was treated for sepsis and encephalopathy. CXR: Unremarkable CT Head: IMPRESSION: There are stable postoperative changes involving frontal lobes with encephalomalacia and residual left parafalcine lesion as detailed above. Overall, this been no significant interval change from 11/27/2018. 04/17: Awaiting todays labs to evaluate renal function and obtain Breastfeeding Peer Counselor. Cardiology consulted for Type 2 MS, wound care also consulted due to 5th right toe wound, will adjust Insulin for Blood sugar. 04/18. Labs reviewed. Cardiology recommends ischemic work up prior to DC. Monitor blood gas 04/19. Discussed with patient's daughter who mentions that patient is usually able to have a normal conversation. Patient is also able to use her phone and post pictures on Facebook. Daughter's last conversation with patient was 4 days ago. In light of these changes, will order an LP to rule out encephalitis. MRI brain and EEG also ordered as per neurology evaluation earlier. Labs have been reviewed-started on hypotonic solution for hypernatremia. 04/20. Plan for MRI brain and EEG today. LP still pending. Neurology evaluation. Labs reviewed-sodium 154. Continue hypotonic solution/ 04/20PM. Patient was intubated for airway protection and transferred to the critical care unit. 04/21. She is slightly awake this morning. Not clearly following commands during my encounter. She was afebrile overnight. Her labs shows leukocytosis. LP still pending. She will need MRI brain as well to rule out CVA. EEG ordered. CT abdomen and pelvis will be ordered to determine any source of infection. Awaiting neurology reevaluation. 04/22. Not able to have CT and MRI as she cannot fit into machine. Plan for LP. Remains intubated. Neurology to see Plan (1) Acute encephalopathy Current Visit: Yes Status: Acute Plan to address problem: Still persists. At baseline - she has a normal conversation with family as per daughter. Continue cefepime and vancomycin Needs LP. Will send CSF studies EEG Not able to have MRI brain Rule out other sources of possible infection - ID recs appreciated. (2) Sepsis Current Visit: Yes Status: Acute Qualifiers: Severe sepsis shock status: without septic shock Plan to address problem: No source of infection identified. IV cefepime and vancomycin started empirically. ID recs appreciated Awaiting LP. Not able to have CT abdomen and pelvis (3) Elevated troponin- ?Type 2 Current Visit: Yes Status: Acute Plan to address problem: Cardiology following. (4) JOEL (acute kidney injury) Current Visit: Yes Status: Acute Plan to address problem: Secondary to vasomotor nephropathy IV fluids (5) Hypernatremia Current Visit: Yes Status: Acute Plan to address problem: Poor intake Continue hypotonic solution Trend Na (6) IDDM (insulin dependent diabetes mellitus) Current Visit: Yes Status: Chronic Plan to address problem: Continue Lantus and SSI (7) Hyperlipidemia Current Visit: No Status: Chronic Qualifiers: Hyperlipidemia type: mixed hyperlipidemia Qualified Code(s): E78.2 - Mixed hyperlipidemia Plan to address problem: Continue statins (8) Hypertension Current Visit: Yes Status: Chronic Qualifiers: Hypertension type: essential hypertension Qualified Code(s): I10 - Essential (primary) hypertension Plan to address problem: Continue antihypertensives and adjust medications as necessary (9) GERD (gastroesophageal reflux disease) Current Visit: Yes Status: Chronic Qualifiers: Esophagitis presence: without esophagitis Qualified Code(s): K21.9 - Gastro-esophageal reflux disease without esophagitis Plan to address problem: Continue Protonix (10) Peripheral neuropathy Current Visit: Yes Status: Chronic Qualifiers: Peripheral neuropathy type: polyneuropathy, unspecified Qualified Code(s): G62.9 - Polyneuropathy, unspecified Plan to address problem: Continue Lyrica (11) Seizure disorder Current Visit: Yes Status: Chronic Plan to address problem: Continue Lamictal No seizures noted this time. Neurology recs appreciated. EEG pending (12) DVT prophylaxis Current Visit: No Status: Acute History Interval history: Patient remains intubated Awake. Plan for extubation as per pulm CT and MRI not performed as she will not fit into machine Plan for LP after extubation Hospitalist Physical - Physical exam Narrative exam: VITAL SIGNS: Reviewed. GENERAL: Intubated. HEAD: No signs of head trauma. EYES: Pupils are equal. Extraocular motions intact. MOUTH: Oropharynx is normal. NECK: No adenopathy, no JVD. CHEST: Chest with diminished breath sounds bilaterally. No wheezes, rales, or rhonchi. CARDIAC: normal S1 and S2, without murmurs, gallops, or rubs. ABDOMEN: Soft, non tender and non distended. No rebound or guarding, and no masses palpated. Bowel Sounds normal. MUSCULOSKELETAL: Edema NEUROLOGIC EXAM: Intubated. SKIN: No obvious lesions - Constitutional Vitals: Temp Pulse Resp BP Pulse Ox 98.9 F 82 25 H 138/72 100 04/22/20 04:00 04/22/20 12:01 04/22/20 12:01 04/22/20 12:01 04/22/20 12:01 General appearance: Present: obese HEART Score - HEART Score Age: 45-65 Risk factors: > 3 risk factors or hx of atherosclerotic disease Troponin: Troponin T < 0.010 ng/mL (0.00-0.029) 04/17/20 18:37 Troponin: 1-3x normal limit - Critical Actions Critical Actions: 4-6 pts:12-16.6% risk of adverse cardiac event. Should be admitted Results - Labs CBC & Chem 7: 04/22/20 04:54 04/22/20 04:54 Labs: Laboratory Last Values WBC 13.0 K/mm3 (4.5-11.0) H 04/22/20 04:54 RBC 4.01 M/mm3 (3.65-5.03) 04/22/20 04:54 Hgb 9.1 gm/dl (10.1-14.3) L 04/22/20 04:54 Hct 29.9 % (30.3-42.9) L 04/22/20 04:54 MCV 75 fl (79-97) L 04/22/20 04:54 MCH 23 pg (28-32) L 04/22/20 04:54 MCHC 31 % (30-34) 04/22/20 04:54 RDW 16.1 % (13.2-15.2) H 04/22/20 04:54 Plt Count 382 K/mm3 (140-440) 04/22/20 04:54 Lymph % (Auto) 12.6 % (13.4-35.0) L 04/22/20 04:54 Branch % (Auto) 9.0 % (0.0-7.3) H 04/22/20 04:54 Eos % (Auto) 1.7 % (0.0-4.3) 04/22/20 04:54 Baso % (Auto) 0.7 % (0.0-1.8) 04/22/20 04:54 Lymph # (Auto) 1.6 K/mm3 (1.2-5.4) 04/22/20 04:54 Branch # (Auto) 1.2 K/mm3 (0.0-0.8) H 04/22/20 04:54 Eos # (Auto) 0.2 K/mm3 (0.0-0.4) 04/22/20 04:54 Baso # (Auto) 0.1 K/mm3 (0.0-0.1) 04/22/20 04:54 Add Manual Diff Complete 04/21/20 05:24 Total Counted 100 04/21/20 05:24 Seg Neutrophils % 76.0 % (40.0-70.0) H 04/22/20 04:54 Seg Neuts % (Manual) 71.0 % (40.0-70.0) H 04/21/20 05:24 Band Neutrophils % 1.0 % 04/17/20 10:38 Lymphocytes % (Manual) 15.0 % (13.4-35.0) 04/21/20 05:24 Monocytes % (Manual) 12.0 % (0.0-7.3) H 04/21/20 05:24 Eosinophils % (Manual) 1.0 % (0.0-4.3) 04/21/20 05:24 Metamyelocytes % 1.0 % 04/21/20 05:24 Nucleated RBC % Not Reportable 04/21/20 05:24 Seg Neutrophils # 9.9 K/mm3 (1.8-7.7) H 04/22/20 04:54 Seg Neutrophils # Man 10.6 K/mm3 (1.8-7.7) H 04/21/20 05:24 Band Neutrophils # 0.0 K/mm3 04/21/20 05:24 Lymphocytes # (Manual) 2.2 K/mm3 (1.2-5.4) 04/21/20 05:24 Abs React Lymphs (Man) 0.0 K/mm3 04/21/20 05:24 Monocytes # (Manual) 1.8 K/mm3 (0.0-0.8) H 04/21/20 05:24 Eosinophils # (Manual) 0.1 K/mm3 (0.0-0.4) 04/21/20 05:24 Basophils # (Manual) 0.0 K/mm3 (0.0-0.1) 04/21/20 05:24 Metamyelocytes # 0.1 K/mm3 04/21/20 05:24 Myelocytes # 0.0 K/mm3 04/21/20 05:24 Promyelocytes # 0.0 K/mm3 04/21/20 05:24 Blast Cells # 0.0 K/mm3 04/21/20 05:24 WBC Morphology Not Reportable 04/21/20 05:24 Hypersegmented Neuts Not Reportable 04/21/20 05:24 Hyposegmented Neuts Not Reportable 04/21/20 05:24 Hypogranular Neuts Not Reportable 04/21/20 05:24 Smudge Cells Not Reportable 04/21/20 05:24 Toxic Granulation Not Reportable 04/21/20 05:24 Toxic Vacuolation Not Reportable 04/21/20 05:24 Dohle Bodies Not Reportable 04/21/20 05:24 Pelger-Huet Anomaly Not Reportable 04/21/20 05:24 Marcel Rods Not Reportable 04/21/20 05:24 Platelet Estimate Consistent w auto 04/21/20 05:24 Clumped Platelets Not Reportable 04/21/20 05:24 Plt Clumps, EDTA Not Reportable 04/21/20 05:24 Large Platelets Not Reportable 04/21/20 05:24 Giant Platelets Not Reportable 04/21/20 05:24 Platelet Satelliting Not Reportable 04/21/20 05:24 Plt Morphology Comment Not Reportable 04/21/20 05:24 RBC Morphology Not Reportable 04/21/20 05:24 Dimorphic RBCs Not Reportable 04/21/20 05:24 Polychromasia Not Reportable 04/21/20 05:24 Hypochromasia 1+ 04/21/20 05:24 Poikilocytosis Not Reportable 04/21/20 05:24 Anisocytosis Few 04/21/20 05:24 Microcytosis Not Reportable 04/21/20 05:24 Macrocytosis Not Reportable 04/21/20 05:24 Spherocytes Not Reportable 04/21/20 05:24 Pappenheimer Bodies Not Reportable 04/21/20 05:24 Sickle Cells Not Reportable 04/21/20 05:24 Target Cells Not Reportable 04/21/20 05:24 Tear Drop Cells Not Reportable 04/21/20 05:24 Ovalocytes Not Reportable 04/21/20 05:24 Helmet Cells Not Reportable 04/21/20 05:24 Moran-Floral Bodies Not Reportable 04/21/20 05:24 [place] Rings Not Reportable 04/21/20 05:24 [place] Cells Not Reportable 04/21/20 05:24 Bite Cells Not Reportable 04/21/20 05:24 Crenated Cell Not Reportable 04/21/20 05:24 Elliptocytes Not Reportable 04/21/20 05:24 Acanthocytes (Spur) Not Reportable 04/21/20 05:24 Rouleaux Not Reportable 04/21/20 05:24 Hemoglobin C Crystals Not Reportable 04/21/20 05:24 Schistocytes Few 04/21/20 05:24 Malaria parasites Not Reportable 04/21/20 05:24 Levi Bodies Not Reportable 04/21/20 05:24 Hem Pathologist Commnt No 04/21/20 05:24 PT 14.3 Sec. (12.2-14.9) 04/21/20 09:00 INR 1.12 (0.87-1.13) 04/21/20 09:00 APTT 43.3 Sec. (24.2-36.6) H 04/16/20 19:29 D-Dimer 1201.23 ng/mlDDU (0-234) H 04/17/20 10:38 ABG pH 7.390 pH Units (7.350-7.450) 04/22/20 04:40 POC ABG pCO2 37.8 mmHg (32.0-48.0) 04/21/20 03:45 ABG pCO2 32.4 mm Hg 04/22/20 04:40 POC ABG pO2 145.5 mmHg (83-108) H 04/21/20 03:45 ABG pO2 85.3 mm Hg (80.0-90.0) 04/22/20 04:40 POC ABG HCO3 20.1 04/21/20 03:45 ABG HCO3 19.2 mmol/L (20.0-26.0) L 04/22/20 04:40 ABG O2 Saturation 96.9 % (95.0-99.0) 04/22/20 04:40 ABG O2 Content 13.4 (0.0-44) 04/22/20 04:40 POC ABG Base Excess -5.1 04/21/20 03:45 ABG Base Excess -5.0 mmol/L (-2.0-3.0) L 04/22/20 04:40 ABG Hemoglobin 10.0 gm/dl (12.0-16.0) L 04/22/20 04:40 ABG Oxyhemoglobin 97.8 (94-98) 04/20/20 18:17 ABG Carboxyhemoglobin 1.7 % (0.0-5.0) 04/22/20 04:40 ABG Methemoglobin 0.5 % (0.0-1.5) 04/22/20 04:40 ABG Sodium 153.1 mmol/L (136.0-145.0) H 04/21/20 03:45 ABG Potassium 3.2 mmol/L (3.40-4.50) L 04/21/20 03:45 ABG Chloride 120.0 mmol/L (98-107) H 04/21/20 03:45 ABG Glucose 223 mg/dL (65-95) H 04/21/20 03:45 Oxyhemoglobin 94.8 % (95.0-99.0) L 04/22/20 04:40 Carboxyhemoglobin 0.8 (0.5-1.5) 04/20/20 18:17 FiO2 25 % 04/22/20 04:40 Sodium 151 mmol/L (137-145) H 04/22/20 04:54 Potassium 2.8 mmol/L (3.6-5.0) L* 04/22/20 04:54 Chloride 118.7 mmol/L (98-107) H 04/22/20 04:54 Carbon Dioxide 21 mmol/L (22-30) L 04/22/20 04:54 Anion Gap 14 mmol/L 04/22/20 04:54 BUN 28 mg/dL (7-17) H 04/22/20 04:54 Creatinine 1.3 mg/dL (0.6-1.2) H 04/22/20 04:54 Estimated GFR 52 ml/min 04/22/20 04:54 BUN/Creatinine Ratio 22 % 04/22/20 04:54 Glucose 227 mg/dL (65-100) H 04/22/20 04:54 POC Glucose 200 mg/dL (70-105) H 04/22/20 11:37 Hemoglobin A1c 7.6 % (4-6) H 04/18/20 05:23 Lactic Acid 1.10 mmol/L (0.7-2.0) 04/16/20 23:50 Calcium 9.0 mg/dL (8.4-10.2) 04/22/20 04:54 Phosphorus 3.30 mg/dL (2.5-4.5) 04/20/20 05:19 Magnesium 2.70 mg/dL (1.7-2.3) H 04/16/20 19:45 Ferritin 53172.0 ng/mL (10.0-200.0) H 04/17/20 10:38 Total Bilirubin 0.40 mg/dL (0.1-1.2) 04/22/20 04:54 AST 15 units/L (5-40) 04/22/20 04:54 ALT 27 units/L (7-56) 04/22/20 04:54 Alkaline Phosphatase 114 units/L (35-129) 04/22/20 04:54 Ammonia 50.0 umol/L (25-60) 04/16/20 19:57 Lactate Dehydrogenase 246 units/L (91-180) H 04/17/20 10:38 Total Creatine Kinase 303 units/L (30-135) H 04/16/20 19:45 CK-MB (CK-2) < 1.0 ng/mL (0.0-4.0) 04/16/20 19:45 CK-MB (CK-2) Rel Index 0.3 (0-4) 04/16/20 19:45 Troponin T < 0.010 ng/mL (0.00-0.029) 04/17/20 18:37 C-Reactive Protein 13.90 mg/dL (0.00-1.30) H 04/17/20 10:38 Total Protein 6.7 g/dL (6.3-8.2) 04/22/20 04:54 Albumin 3.2 g/dL (3.9-5) L 04/22/20 04:54 Albumin/Globulin Ratio 0.9 % 04/22/20 04:54 Triglycerides 171 mg/dL (2-149) H 04/16/20 19:29 Cholesterol 212 mg/dL (50-199) H 04/16/20 19:29 LDL Cholesterol Direct 147 mg/dL (50-130) H 04/16/20 19:29 HDL Cholesterol 35 mg/dL (40-59) L 04/16/20 19:29 Cholesterol/HDL Ratio 6.05 % 04/16/20 19:29 Procalcitonin 1.39 ng/mL (<0.15) 04/17/20 10:38 TSH 0.679 mlU/mL (0.270-4.200) 04/16/20 19:45 Free T4 0.94 ng/dL (0.76-1.46) 04/16/20 19:45 Arterial Blood Glucose 223 mg/dL (65-95) H 04/21/20 03:45 Arterial Blood Ionized Calcium 5.1 mg/dL (4.6-5.3) 04/21/20 03:45 Urine Color Yulissa (Yellow) 04/21/20 Unknown Urine Turbidity Turbid (Clear) 04/21/20 Unknown Urine pH 6.0 (5.0-7.0) 04/21/20 Unknown Ur Specific Rowe 1.021 (1.003-1.030) 04/21/20 Unknown Urine Protein 100 mg/dl mg/dL (Negative) 04/21/20 Unknown Urine Glucose (UA) 50 mg/dL (Negative) 04/21/20 Unknown Urine Ketones 20 mg/dL (Negative) 04/21/20 Unknown Urine Blood Sm (Negative) 04/21/20 Unknown Urine Nitrite Neg (Negative) 04/21/20 Unknown Urine Bilirubin Neg (Negative) 04/21/20 Unknown Urine Urobilinogen < 2.0 mg/dL (<2.0) 04/21/20 Unknown Ur Leukocyte Esterase Tr (Negative) 04/21/20 Unknown Urine WBC (Auto) 21.0 /HPF (0.0-6.0) H 04/21/20 Unknown Urine RBC (Auto) 19.0 /HPF (0.0-6.0) 04/21/20 Unknown U Epithel Cells (Auto) 1.0 /HPF (0-13.0) 04/21/20 Unknown Urine Bacteria (Auto) 3+ /HPF (Negative) 04/21/20 Unknown Amorphous Crystals Few 04/21/20 Unknown Hyaline Casts 3 /LPF 04/21/20 Unknown Granular Casts 6 /LPF 04/21/20 Unknown Urine Mucus Few /HPF 04/21/20 Unknown Urine Yeast (Budding) Few /HPF 04/21/20 Unknown Urine Osmolality 565 Mosm/kg 04/21/20 Unknown Urine Creatinine 190.1 mg/dL (0.1-20.0) H 04/21/20 Unknown Urine Sodium 44 mmol/L 04/21/20 Unknown Vancomycin Trough 56.2 ug/mL (5.0-20.0) H 04/20/20 10:17 Random Vancomycin 28.2 ug/mL (0-40.0) 04/22/20 04:54 Plasma/Serum Alcohol < 0.01 % (0-0.07) 04/16/20 19:45 Coronavirus (PCR) Negative (Negative) 04/18/20 10:20 Microbiology: Microbiology 04/16/20 23:50 Peripheral/Venous Blood Culture - Final NO GROWTH AFTER 5 DAYS 04/16/20 23:42 Peripheral/Venous Blood Culture - Final NO GROWTH AFTER 5 DAYS - Diagnostic Impressions Diagnostic Impressions: Echocardiogram 04/17/20 07:54 Transthoracic Echocardiogram Indication: SOB BP: 92/57 HR: 161 Conclusions *The study quality is technically difficult. *Global left ventricular systolic function is normal. *The estimated ejection fraction is 55-60%. *Mild concentric left ventricular hypertrophy is observed. *There is no significant mitral regurgitation. *There is at least mild to moderate tricuspid regurgitation. *There is at least mild pulmonary hypertension. *The right ventricular systolic pressure is calculated at 40 mmHg. Findings Procedure Info: The study quality is technically difficult. The study is technically limited due to poor acoustic windows. The study is technically limited due to patient body habitus. Left Ventricle: The left ventricular chamber size is normal. Mild concentric left ventricular hypertrophy is observed. Global left ventricular systolic function is normal. The estimated ejection fraction is 55-60%. Left Atrium: The left atrial chamber size is normal. Right Ventricle: The right ventricle is slightly dilated. The right ventricular global systolic function is normal. Right Atrium: The right atrial cavity size is normal. Aortic Valve: The aortic valve leaflets are mildly thickened. There is no evidence of aortic regurgitation. There is no evidence of aortic stenosis. Mitral Valve: The mitral valve leaflets are mildly thickened. There is no evidence of mitral regurgitation. There is no evidence of mitral stenosis. Tricuspid Valve: There is mild to moderate tricuspid regurgitation. The right ventricular systolic pressure is calculated at 40 mmHg. There is evidence of mild pulmonary hypertension. Pulmonic Valve: There is trace pulmonic regurgitation. Pericardium: There is no pericardial effusion. Aorta: There is no dilatation of the ascending aorta. There is no dilatation of the aortic root. Venous: The inferior vena cava appears normal in size. Measurements Chambers 2D Name Value Normal Range IVSd (2D) 1.25 cm (0.6 - 1.1) LVPWd (2D) 1.22 cm (0.6 - 1.1) LVIDd (2D) 3.38 cm (3.7 - 5.6) LVIDs (2D) 2.49 cm (2 - 3.8) LV FS (2D) 26.32 % - EF Teichholz (2D) 52.72 % - Ao root diameter (2D) 2.59 cm (2 - 3.7) Volumes/Mass Name Value Normal Range LA ESV SP 4CH (A/L) 35.95 ml - LA ESV SP 2CH (A/L) 35.35 ml - LA ESV BP (A/L) 36.93 ml - LA ESV BP (A/L) index 15.92 ml/m2 - LA ESV SP 4CH (MOD) 28.81 ml - LA ESV SP 2CH (MOD) 34.25 ml - LA ESV BP (MOD) 32.42 ml - LA ESV BP (MOD) index 13.97 ml/m2 - Diastolic/Systolic Function Name Value Normal Range MV E-wave Vmax 1.17 m/sec - MV deceleration time 107.18 msec - MV A-wave Vmax 0.67 m/sec - MV E:A ratio 1.75 ratio - Aortic Valve Name Value Normal Range AV Vmax 1.35 m/sec - AV VTI 18.24 cm - AV peak gradient 7.34 mmHg - AV mean gradient 3.81 mmHg - LVOT diameter 1.86 cm - LVOT Vmax 1.03 m/sec - LVOT VTI 14.97 cm - LVOT peak gradient 4.24 mmHg - LVOT mean gradient 1.98 mmHg - SV LVOT 40.48 ml - DRE (continuity Vmax) 2.05 cm2 - DRE (continuity VTI) 2.22 cm2 - Ascending Ao 2.6 cm - Tricuspid Valve Name Value Normal Range TR Vmax 3.05 m/sec - TR peak gradient 37 mmHg - RAP 3 mmHg - RVSP 40 mmHg - IVC diameter 1.34 cm (1.2 - 2.3) Pulmonic Valve/Qp:Qs Name Value Normal Range PV Vmax 1.14 m/sec - PV peak gradient 5.23 mmHg - GA end-diastolic Vmax 1.86 m/sec - PV acceleration time 72.31 msec - Perez/IV: Voiding Method Indwelling Catheter IV Catheter Type [Right Triple Lumen Cath Femoral] IV Catheter Type [Left Forearm INT / Saline Lock ] IV Catheter Type [Left Wrist] Peripheral IV IV Catheter Type [Left INT / Saline Lock Antecubital] Active Medications - Current Medications Current Medications: Generic Name Dose Route Start Last Admin Trade Name Freq PRN Reason Stop Dose Admin Acetaminophen 650 mg 04/17/20 23:57 04/18/20 01:04 Acetaminophen 650 Mg Rect Supp GA 650 mg Q6H PRN Administration Pain, Mild (1-3) Hydrocodone Bitart/Acetaminophen 1 each 04/17/20 10:00 Hydrocodone/Acetaminophen 5-325 Mg Tab PO Q4HR PRN PAIN Albuterol 2.5 mg 04/17/20 08:00 Albuterol 2.5 Mg/3 Ml Nebu IH Q4HRT PRN Shortness Of Breath Amiodarone HCl 200 mg 04/19/20 13:00 04/22/20 09:02 Amiodarone 200 Mg Tab PO 200 mg BID VIOLETA Administration Aspirin 81 mg 04/19/20 13:00 04/22/20 09:01 Aspirin 81 Mg Tab Chew PO 81 mg QDAY VIOLETA Administration Atorvastatin Calcium 40 mg 04/17/20 22:00 04/21/20 23:46 Atorvastatin 40 Mg Tab PO 40 mg QHS VIOLETA Administration Cholecalciferol 1,000 unit 04/17/20 14:00 04/22/20 09:02 Cholecalciferol (Vit D3) 1000 Unit (25 Mcg) Tab PO 1,000 unit DAILY VIOLETA Administration Clopidogrel Bisulfate 75 mg 04/20/20 10:00 04/22/20 09:02 Clopidogrel 75 Mg Tab PO 75 mg QDAY VIOLETA Administration Heparin Sodium (Porcine) 5,000 unit 04/19/20 13:00 04/22/20 09:02 Heparin 5,000 Unit/1 Ml Vial SUB-Q 5,000 unit Q12HR VIOLETA Administration Hydrocortisone Acetate 10 mg 04/17/20 10:00 04/22/20 09:01 Hydrocortisone 10 Mg Tab PO 10 mg BID VIOLETA Administration Hydrophilic Ointment 1 applic 04/20/20 16:32 Lip Therapy Vaseline TP Q2HR PRN Dry Lips Norepinephrine 4 mg in 250 mls @ 7.5 mls/hr 04/20/20 19:00 04/21/20 08:45 Levophed Drip 4 Mg/Ns 250 Ml IV 0 mcg/min TITR VIOLETA 0 mls/hr Titration Protocol 2 MCG/MIN Potassium Chloride 40 meq/ 1,020 mls @ 100 mls/hr 04/22/20 09:00 04/22/20 09:02 Dextrose IV 100 mls/hr DIRECT VIOLETA Administration Ceftriaxone Sodium 2 gm in 100 mls @ 200 mls/hr 04/22/20 11:00 Rocephin/Ns 2 Gm/100 Ml IV Q24HR VIOLETA Protocol Insulin Glargine 26 units 04/19/20 22:00 04/21/20 23:47 Insulin Glargine 100 Units/Ml SUB-Q 26 units QHS VIOLETA Administration Insulin Human Lispro 0 unit 04/21/20 18:00 04/22/20 06:43 Insulin Lispro 100 Unit/Ml Vial 3 Ml SUB-Q 3 unit Q6H VIOLETA Administration Protocol Lamotrigine 25 mg 04/17/20 10:00 04/22/20 09:01 Lamotrigine 25 Mg Tab PO 25 mg BID VIOLETA Administration Levothyroxine Sodium 50 mcg 04/17/20 10:00 04/22/20 06:41 Levothyroxine 50 Mcg Tab PO 50 mcg DAILY@0600 VIOLETA Administration Metoprolol Tartrate 50 mg 04/19/20 14:00 04/22/20 09:01 Metoprolol Tartrate 50 Mg Tab PO 50 mg TID VIOLETA Administration Multi-Ingred Cream/Lotion/Oil/Oint 1 applic 04/20/20 16:32 Mineral Oil/Petrolatum, White Ophth Oint 3.5 Gm OU Q4HR PRN Dry Eye(s) Nitroglycerin 0.2 mg 04/21/20 06:00 04/22/20 06:41 Nitroglycerin 0.2 Mg Patch 24hr TD 0.2 mg QDAY@0600 VIOLETA Administration Pantoprazole Sodium 40 mg 04/21/20 10:00 04/22/20 09:02 Pantoprazole 40 Mg Inj IV 40 mg BID VIOLETA Administration Pregabalin 150 mg 04/17/20 10:00 04/22/20 09:25 Pregabalin 75 Mg Cap PO 150 mg BID VIOLETA Administration Nutrition/Malnutrition Assess - Dietary Evaluation Nutrition/Malnutrition Findings: Nutrition Notes Start: 04/21/20 09:56 Freq: Status: Active Protocol: Document 04/21/20 09:56 (Rec: 04/21/20 10:39 [email or web address]) Nutrition Notes Need for Assessment generated from: MD Order Initial or Follow up Assessment Current Diagnosis Acute Kidney Injury,Diabetes, Sepsis,Hypertension, Hyperlipidemia Other Pertinent Diagnosis H/o seizures Current Diet Mechanical soft Labs/Tests Na 154 K 3.4 BUN 28 Cr 1.3 BG 230 Pertinent Medications Reviewed Height 5 ft 8 in Weight 122.47 kg [place] Body Weight (kg) 63.63 BMI 41.0 Weight Status Morbidly Obese Subjective/Other Information MD osman to evaluate intakes. Pt was intubated 04/20. Burn Absent Trauma Absent Current % PO Negligible Minimum of two criteria No physical signs of malnutrition #1 Nutrition Diagnosis Inadequate oral intake Etiology mechanical vent As Evidenced by Signs and Symptoms unable to comsume PO Is patient on ventilator? Yes Is Patient Ambulatory and/or Out of Bed No REE-([facility]-confined to bed) 2251.560 Kcal/Kg value to use for calculation 14 Approximate Energy Requirements Using 1715 kcal/Kg Calculation Used for Recommendations Kcal/kg Additional Notes Pro: >127g (>2g/kg IBW) Fluid: 1 ml/kcal or per MD Nutrition Intervention Change Diet Order: Extubate or TF when medically able Nutrition Support: Glucerna 1.2 at 65ml/hr Flush 200 ml q4h for hypernatermia Once resolved, flush 100 ml q4h Kcal 1,872 Protein (gm) 94 Fluid (mL) 1,256 Goal #1 TF start or extubation Anticipated Discharge Needs: Unable to determine at this time Follow-Up By: 04/27/20 Additional Comments FU for TF start or extubation
--- NOTE | 2020-04-22 13:59 | Progress Note ---
Assessment and Plan 1. Acute kidney injury: Vasomotor JOEL in the setting of hypotension. Monitor renal function. BUN and Creatinine level is improving. Avoid nephrotoxic agents. Meds dosage based on GFR. 2. FEN: Metabolic acidosis, improved, monitor. Hypokalemia, replete K as needed, monitor. Hypernatremia, continue IV D5W, monitor. Monitor lytes. 3. Acute metabolic encephalopathy: MRI pending. 4. Acute hypoxic resp failure: S/p extubated. Monitor. 5. Sepsis: On IV Ceftriaxone and Vancomycin. Followed by ID. 6. Elevated troponin: Seen by Cardiology. 7. DM Type 2. 8. H/o Seizures. 9. H/o Meningioma resection. 10. Sleep apnea. Subjective: Patient was seen and examined at the bedside. Examination: General appearance: well-developed, well-nourished, appears stated age, obese HEENT: ATNC, KOURTNEY, scalp surgical scar Neck: Trachea midline Respiratory: Clear to Auscultation Cardiology: regular, S1S2, no murmur Abdomen: soft, normoactive bowel sounds, not tender Integumentary: no obvious, rash Neurologic: alert, moving extremities Ext: trace edema of both LEs noted : kent catheter Subjective Date of service: 04/22/20 Principal diagnosis: Elevated cardiac enzymes Objective - Vital Signs Vital signs: Vital Signs - 12hr 04/22/20 04/22/20 04/22/20 02:00 02:30 03:00 Temperature Pulse Rate 78 83 86 Respiratory 21 26 H 24 Rate Blood Pressure 119/61 113/54 112/55 O2 Sat by Pulse 100 100 100 Oximetry 04/22/20 04/22/20 04/22/20 03:30 04:00 04:30 Temperature 98.9 F Pulse Rate 82 85 75 Respiratory 28 H 25 H 22 Rate Blood Pressure 113/48 119/59 131/54 O2 Sat by Pulse 100 100 100 Oximetry 04/22/20 04/22/20 04/22/20 04:59 05:01 05:30 Temperature Pulse Rate 76 79 87 Respiratory 24 24 Rate Blood Pressure 121/58 121/58 130/59 O2 Sat by Pulse 100 100 100 Oximetry 04/22/20 04/22/20 04/22/20 06:00 06:30 06:41 Temperature Pulse Rate 88 88 86 Respiratory 22 28 H Rate Blood Pressure 131/58 134/67 134/67 O2 Sat by Pulse 100 100 Oximetry 04/22/20 04/22/20 04/22/20 07:01 07:31 08:00 Temperature 98.2 F Pulse Rate 83 84 86 Respiratory 26 H 21 26 H Rate Blood Pressure 132/58 130/68 O2 Sat by Pulse 100 100 100 Oximetry 04/22/20 04/22/20 04/22/20 08:01 08:31 08:40 Temperature Pulse Rate 83 82 85 Respiratory 25 H 27 H 32 H Rate Blood Pressure 123/60 129/50 135/63 O2 Sat by Pulse 100 100 100 Oximetry 04/22/20 04/22/20 04/22/20 09:00 09:01 09:30 Temperature Pulse Rate 85 87 89 Respiratory 17 30 H Rate Blood Pressure 130/70 130/70 135/63 O2 Sat by Pulse 100 100 Oximetry 04/22/20 04/22/20 04/22/20 10:01 10:31 11:01 Temperature Pulse Rate 79 71 72 Respiratory 27 H 31 H 31 H Rate Blood Pressure 124/62 126/54 120/53 O2 Sat by Pulse 100 100 100 Oximetry 04/22/20 04/22/20 04/22/20 11:31 11:54 12:00 Temperature 98.1 F Pulse Rate 75 80 Respiratory 17 26 H Rate Blood Pressure 129/63 O2 Sat by Pulse 100 99 100 Oximetry 04/22/20 04/22/20 04/22/20 12:01 12:31 13:00 Temperature Pulse Rate 82 81 80 Respiratory 25 H 31 H 37 H Rate Blood Pressure 138/72 133/66 133/71 O2 Sat by Pulse 100 100 100 Oximetry 04/22/20 13:31 Temperature Pulse Rate 79 Respiratory 36 H Rate Blood Pressure 134/69 O2 Sat by Pulse 100 Oximetry - Lab 04/23/20 06:07 04/23/20 06:07 Most recent lab results ABG pH 7.390 pH Units (7.350-7.450) 04/22/20 04:40 ABG pCO2 32.4 mm Hg 04/22/20 04:40 ABG pO2 85.3 mm Hg (80.0-90.0) 04/22/20 04:40 ABG HCO3 19.2 mmol/L (20.0-26.0) L 04/22/20 04:40 ABG O2 Saturation 96.9 % (95.0-99.0) 04/22/20 04:40 Calcium 9.0 mg/dL (8.4-10.2) 04/22/20 04:54 Phosphorus 3.30 mg/dL (2.5-4.5) 04/20/20 05:19 Magnesium 2.70 mg/dL (1.7-2.3) H 04/16/20 19:45 Urine Creatinine 190.1 mg/dL (0.1-20.0) H 04/21/20 Unknown Urine Sodium 44 mmol/L 04/21/20 Unknown Medications & Allergies - Medications Allergies/Adverse Reactions: Allergies erythromycin base [From Erythrocin] Allergy (Verified 11/26/18 06:03) Itching Penicillins Allergy (Verified 11/26/18 06:02) Rash Home Medications: Home Medications Medication Instructions Recorded Confirmed Last Taken Type Atorvastatin Calcium 40 mg PO BID 11/26/18 04/17/20 11/25/18 08:00 History Cholecalciferol Vit D3 [Vitamin D3 1,000 1000units PO QDAY 11/26/18 04/17/20 11/25/18 08:00 History 1,000 UNIT TAB] HYDROcodone/APAP 5-325 [[place] 1 each PO Q4HR PRN 11/26/18 04/17/20 Unknown History 5-325 mg TAB] Hydrocortisone [Cortef TAB] 10 mg PO BID 11/26/18 04/17/20 Unknown History Insulin Glargine,Hum.rec.anlog 60 unit SQ QHS 11/26/18 04/17/20 Unknown History [Lantus Solostar] Insulin Glargine,Hum.rec.anlog See Protocol SUB-Q QACHS 11/26/18 04/17/20 Unkn own History [Lantus Solostar] Lasix TAB 20 mg PO BID 11/26/18 04/17/20 Unknown History Levothyroxine [Synthroid] 50 mcg PO QAM 11/26/18 04/17/20 11/24/18 08:00 History Lispro Insulin [HumaLOG] See Protocol SUB-Q ACHS 11/26/18 04/17/20 11/25/18 History Metoprolol [Lopressor TAB] 50 mg PO BID 11/26/18 04/17/20 Unknown History Mometasone 0.1% (Nf) 0.1 units TP BID 11/26/18 04/17/20 Unknown History Pantoprazole [Protonix TAB] 40 mg PO BID 11/26/18 04/17/20 Unknown History Petrolatum,White [Vaseline White 5 gm TP BID 11/26/18 04/17/20 Unknown History Petroleum] Pregabalin [Lyrica] 150 mg PO BID 11/26/18 04/17/20 11/25/18 08:00 History lamoTRIgine [LaMICtal] 25 mg PO BID 11/26/18 04/17/20 Unknown History ALBUTEROL NEB's [Proventil 0.083% 2.5 mg IH Q4HRT PRN nebu 05/20/19 04/17/20 Unknown Rx NEBS] Apixaban [Eliquis] 5 mg PO BID tablet 05/20/19 04/17/20 Unknown Rx AtorvaSTATin [Lipitor] 40 mg PO QDAY tablet 05/20/19 04/17/20 Unknown Rx Active Medications: Generic Name Dose Route Start Last Admin Trade Name Freq PRN Reason Stop Dose Admin Acetaminophen 650 mg 04/17/20 23:57 04/18/20 01:04 Acetaminophen 650 Mg Rect Supp [place] 650 mg Q6H PRN Administration Pain, Mild (1-3) Hydrocodone Bitart/Acetaminophen 1 each 04/17/20 10:00 Hydrocodone/Acetaminophen 5-325 Mg Tab PO Q4HR PRN PAIN Albuterol 2.5 mg 04/17/20 08:00 Albuterol 2.5 Mg/3 Ml Nebu IH Q4HRT PRN Shortness Of Breath Amiodarone HCl 200 mg 04/19/20 13:00 04/22/20 09:02 Amiodarone 200 Mg Tab PO 200 mg BID VIOLETA Administration Aspirin 81 mg 04/19/20 13:00 04/22/20 09:01 Aspirin 81 Mg Tab Chew PO 81 mg QDAY VIOLETA Administration Atorvastatin Calcium 40 mg 04/17/20 22:00 04/21/20 23:46 Atorvastatin 40 Mg Tab PO 40 mg QHS VIOLETA Administration Cholecalciferol 1,000 unit 04/17/20 14:00 04/22/20 09:02 Cholecalciferol (Vit D3) 1000 Unit (25 Mcg) Tab PO 1,000 unit DAILY VIOLETA Administration Clopidogrel Bisulfate 75 mg 04/20/20 10:00 04/22/20 09:02 Clopidogrel 75 Mg Tab PO 75 mg QDAY VIOLETA Administration Heparin Sodium (Porcine) 5,000 unit 04/19/20 13:00 04/22/20 09:02 Heparin 5,000 Unit/1 Ml Vial SUB-Q 5,000 unit Q12HR VIOLETA Administration Hydrocortisone Acetate 10 mg 04/17/20 10:00 04/22/20 09:01 Hydrocortisone 10 Mg Tab PO 10 mg BID VIOLETA Administration Hydrophilic Ointment 1 applic 04/20/20 16:32 Lip Therapy Vaseline TP Q2HR PRN Dry Lips Norepinephrine 4 mg in 250 mls @ 7.5 mls/hr 04/20/20 19:00 04/21/20 08:45 Levophed Drip 4 Mg/Ns 250 Ml IV 0 mcg/min TITR VIOLETA 0 mls/hr Titration Protocol 2 MCG/MIN Potassium Chloride 40 meq/ 1,020 mls @ 100 mls/hr 04/22/20 09:00 04/22/20 09:02 Dextrose IV 100 mls/hr DIRECT VIOLETA Administration Ceftriaxone Sodium 2 gm in 100 mls @ 200 mls/hr 04/22/20 11:00 Rocephin/Ns 2 Gm/100 Ml IV Q24HR VIOLETA Protocol Insulin Glargine 26 units 04/19/20 22:00 04/21/20 23:47 Insulin Glargine 100 Units/Ml SUB-Q 26 units QHS VIOLETA Administration Insulin Human Lispro 0 unit 04/21/20 18:00 04/22/20 06:43 Insulin Lispro 100 Unit/Ml Vial 3 Ml SUB-Q 3 unit Q6H VIOLETA Administration Protocol Lamotrigine 25 mg 04/17/20 10:00 04/22/20 09:01 Lamotrigine 25 Mg Tab PO 25 mg BID VIOLETA Administration Levothyroxine Sodium 50 mcg 04/17/20 10:00 04/22/20 06:41 Levothyroxine 50 Mcg Tab PO 50 mcg DAILY@0600 VIOLETA Administration Metoprolol Tartrate 50 mg 04/19/20 14:00 04/22/20 09:01 Metoprolol Tartrate 50 Mg Tab PO 50 mg TID VIOLETA Administration Multi-Ingred Cream/Lotion/Oil/Oint 1 applic 04/20/20 16:32 Mineral Oil/Petrolatum, White Ophth Oint 3.5 Gm OU Q4HR PRN Dry Eye(s) Nitroglycerin 0.2 mg 04/21/20 06:00 04/22/20 06:41 Nitroglycerin 0.2 Mg Patch 24hr TD 0.2 mg QDAY@0600 VIOLETA Administration Pantoprazole Sodium 40 mg 04/21/20 10:00 04/22/20 09:02 Pantoprazole 40 Mg Inj IV 40 mg BID VIOLETA Administration Pregabalin 150 mg 04/17/20 10:00 04/22/20 09:25 Pregabalin 75 Mg Cap PO 150 mg BID VIOLETA Administration
--- NOTE | 2020-04-22 14:04 | Progress Note ---
Assessment and Plan Patient admitted with altered mental status, infected diabetic ulcer, possible abdominal cellulitis, sepsis, morbid obesity and respiratory failure. Cardiac status was notable for transient inferior injury pattern, resolved on subsequent ECGs. Due to multiple severe comorbidities, patient is not a candidate for aggressive invasive cardiac therapies, underlying coronary artery disease recommended for medical management. Prognosis is poor in the setting of multiple severe acute comorbidities. Subjective Date of service: 04/22/20 Principal diagnosis: Elevated cardiac enzymes Interval history: Patient is extubated, breathing comfortably, alert and oriented x3, no acute distress. Objective Vital Signs Temp Pulse Resp BP Pulse Ox 04/22/20 13:31 79 36 H 134/69 100 04/22/20 13:00 80 37 H 133/71 100 04/22/20 12:31 81 31 H 133/66 100 04/22/20 12:01 82 25 H 138/72 100 04/22/20 12:00 98.1 F 80 26 H 100 04/22/20 11:54 99 04/22/20 11:31 75 17 129/63 100 04/22/20 11:01 72 31 H 120/53 100 04/22/20 10:31 71 31 H 126/54 100 04/22/20 10:01 79 27 H 124/62 100 04/22/20 09:30 89 30 H 135/63 100 04/22/20 09:01 87 130/70 04/22/20 09:00 85 17 130/70 100 04/22/20 08:40 85 32 H 135/63 100 04/22/20 08:31 82 27 H 129/50 100 04/22/20 08:01 83 25 H 123/60 100 04/22/20 08:00 98.2 F 86 26 H 100 04/22/20 07:31 84 21 130/68 100 04/22/20 07:01 83 26 H 132/58 100 04/22/20 06:41 86 134/67 04/22/20 06:30 88 28 H 134/67 100 04/22/20 06:00 88 22 131/58 100 04/22/20 05:30 87 24 130/59 100 04/22/20 05:01 79 24 121/58 100 04/22/20 04:59 76 121/58 100 04/22/20 04:30 75 22 131/54 100 04/22/20 04:00 98.9 F 85 25 H 119/59 100 04/22/20 03:30 82 28 H 113/48 100 04/22/20 03:00 86 24 112/55 100 04/22/20 02:30 83 26 H 113/54 100 04/22/20 02:00 78 21 119/61 100 04/22/20 01:30 76 22 109/63 100 04/22/20 01:00 75 22 124/64 100 04/22/20 00:42 73 127/67 100 04/22/20 00:30 74 21 127/67 100 04/22/20 00:01 80 25 H 120/53 100 04/22/20 00:00 82 24 100 04/21/20 23:59 99.0 F 04/21/20 23:30 83 25 H 120/55 100 04/21/20 23:00 76 18 114/54 100 04/21/20 22:30 77 22 114/54 100 04/21/20 22:00 75 21 128/66 100 04/21/20 21:30 80 23 118/53 100 04/21/20 21:26 83 24 119/53 100 04/21/20 21:00 88 24 119/53 100 04/21/20 20:47 100 04/21/20 20:41 78 124/62 100 04/21/20 20:30 79 21 124/62 100 04/21/20 20:11 75 114/61 04/21/20 20:00 98.8 F 74 23 114/61 100 04/21/20 19:30 78 21 116/54 100 04/21/20 19:00 78 23 128/49 100 04/21/20 18:30 72 21 120/63 100 04/21/20 18:00 80 23 120/71 100 04/21/20 17:30 80 23 127/39 100 04/21/20 17:00 76 21 130/61 100 04/21/20 16:39 778 H 117/61 100 04/21/20 16:30 79 21 117/61 100 04/21/20 16:00 98.3 F 77 20 122/69 100 04/21/20 15:30 73 20 122/68 100 04/21/20 15:25 79 114/52 04/21/20 15:08 84 17 100 - Physical Examination General: No Apparent Distress, Other (Patient is somnolent) HEENT: Positive: Normocephaly Neck: Positive: neck supple, Other (No significant abnormality noted) Cardiac: Positive: Reg Rate and Rhythm Lungs: Positive: Decreased Breath Sounds Neuro: Positive: Grossly Intact, Other (Patient somnolent unable to evaluate. However moves all 4 extremities) Abdomen: Positive: Unremarkable Skin: Positive: Clear Extremities: Absent: edema - Labs and Meds Cardiac Enzymes 04/22/20 Range/Units 04:54 AST 15 (5-40) units/L CBC 04/22/20 Range/Units 04:54 WBC 13.0 H (4.5-11.0) K/mm3 RBC 4.01 (3.65-5.03) M/mm3 Hgb 9.1 L (10.1-14.3) gm/dl Hct 29.9 L (30.3-42.9) % Plt Count 382 (140-440) K/mm3 Lymph # (Auto) 1.6 (1.2-5.4) K/mm3 [place] # (Auto) 1.2 H (0.0-0.8) K/mm3 Eos # (Auto) 0.2 (0.0-0.4) K/mm3 Baso # (Auto) 0.1 (0.0-0.1) K/mm3 Comprehensive Metabolic Panel 04/21/20 04/22/20 Range/Units 18:12 04:54 Sodium 151 H 151 H (137-145) mmol/L Potassium 3.1 L 2.8 L* (3.6-5.0) mmol/L Chloride 118.7 H 118.7 H (98-107) mmol/L Carbon Dioxide 20 L 21 L (22-30) mmol/L BUN 30 H 28 H (7-17) mg/dL Creatinine 1.3 H 1.3 H (0.6-1.2) mg/dL Glucose 243 H 227 H (65-100) mg/dL Calcium 9.1 9.0 (8.4-10.2) mg/dL AST 15 (5-40) units/L ALT 27 (7-56) units/L Alkaline Phosphatase 114 (35-129) units/L Total Protein 6.7 (6.3-8.2) g/dL Albumin 3.2 L (3.9-5) g/dL - Imaging and Cardiology EKG: report reviewed
[2020-04-22] MEDS: cefTRIAXone/NS 2 GM/100 ML 2 GM/100 ML BAG IV SCH (14:25)
--- NOTE | 2020-04-22 16:04 | Cat Scan Report ---
CT head/brain wo con INDICATION / CLINICAL INFORMATION: 54 years Female; CVA. TECHNIQUE: Routine CT head without contrast. All CT scans at this location are performed using CT dos e reduction for ALARA by means of automated exposure control. Motion artifact COMPARISON: 04/16/2020 FINDINGS: BRAIN / INTRACRANIAL CONTENTS: Large bifrontal craniotomy site noted. There is encephalomalacia in th e adjacent frontal lobes bilaterally-left greater than right. There is atrophic dilatation of the lef t lateral ventricle. There appears to be soft tissue thickening along the adjacent falx cerebri anter iorly and superiorly-residual, presumed meningioma suspected. Similar type findings seen on prior exa m and no significant interval change is seen in these findings when compared with 11/27/2018. Small area of encephalomalacia is also seen in the right occipital lobe anteriorly-unchanged from ruel or exams. Small lacunar infarct is seen in the medial left gangliocapsular region-unchanged from prio r exams, as well. Otherwise, no acute hemorrhage, mass effect, midline shift, hydrocephalus, or acute, large territori al infarct. No signs of significant atrophy or chronic infarct. No other significant white matter abn ormality seen. CRANIOCERVICAL JUNCTION: No significant abnormality. ORBITS: No significant abnormality of visualized orbits. SINUSES / MASTOIDS: Air-fluid levels are seen in the maxillary antra, as well as the sphenoid sinuses . Mild mucosal thickening noted in the ethmoids. These findings have progressed from prior. Note, NG tube is in place and the patient is intubated, which are new from prior. ADDITIONAL FINDINGS: None. IMPRESSION: 1. Multiple postsurgical changes as described above. Presumed, residual meningioma noted. Overall, th ere is been no significant interval change when compared with prior study. 2. No signs of acute hemorrhage or acute, large territorial infarct. Signer Name: Jorge Michelle MD, III Signed: 04/22/2020 3:59 PM Workstation Name: [id number]
[2020-04-22] MEDS ORDERED: MAGNESIUM SULFATE 2 GM/50 ML BAG IV ONE (21:37)
[2020-04-22] MEDS: INSULIN GLARGINE 100 UNITS/ML SUB-Q SCH (21:58)
[2020-04-23] MEDS: INSULIN LISPRO 100 UNIT/ML VIAL 3 mL SUB-Q SCH ×4 (00:24→18:30)
[2020-04-23] MEDS: LEVOTHYROXINE 50 MCG TAB PO SCH (05:46)
[2020-04-23 06:44] LABS: Hematocrit 31.5 % (30.3-42.9); Hemoglobin 9.7 gm/dl (10.1-14.3); Mean Corpuscular HGB Conc 31 % (30-34); Mean Corpuscular Volume 76 fl (79-97); Platelet Count 349 K/mm3 (140-440); Red Blood Count 4.16 M/mm3 (3.65-5.03); Red Cell Distribution Width 16.4 % (13.2-15.2)
[2020-04-23 06:48] LABS: Lymphocytes % (Auto) 14.6 % (13.4-35.0)
[2020-04-23 06:49] LABS: Basophils # (Auto) 0.1 K/mm3 (0.0-0.1); Basophils % (Auto) 0.6 % (0.0-1.8); Eosinophils # (Auto) 0.2 K/mm3 (0.0-0.4); Eosinophils % (Auto) 1.7 % (0.0-4.3); Lymphocytes # (Auto) 1.9 K/mm3 (1.2-5.4); Monocytes # (Auto) 1.2 K/mm3 (0.0-0.8); Monocytes % (Auto) 9.6 % (0.0-7.3)
[2020-04-23 06:59] LABS: Albumin 3.2 g/dL (3.9-5); Calcium 9.2 mg/dL (8.4-10.2)
[2020-04-23] MEDS ORDERED: VANCOMYCIN/NS 1 GM/250 ML 1 GM/250 ML BAG IV ONE (10:00)
--- NOTE | 2020-04-23 10:32 | Progress Note ---
Assessment and Plan 1. Acute kidney injury: Vasomotor JOEL in the setting of hypotension. Monitor renal function. BUN and Creatinine level is better. Avoid nephrotoxic agents. Meds dosage based on GFR. 2. FEN: Metabolic acidosis, improved, monitor. Hypokalemia, replete K as needed, monitor. Hypernatremia, continue IV D5W, monitor. Monitor lytes. 3. Acute metabolic encephalopathy: MRI pending. 4. Acute hypoxic resp failure: S/p extubated. Monitor. 5. Sepsis: On IV Ceftriaxone and Vancomycin. Followed by ID. 6. Elevated troponin: Seen by Cardiology. 7. DM Type 2. 8. H/o Seizures. 9. H/o Meningioma resection. 10. Sleep apnea. Subjective: The patient was not examined today. However the examination findings from other providers noted. The current and previous medical records are reviewed in detail as are laboratory and imaging data reviewed when appropriate. Medications being given are also reviewed. In addition the case has been discussed with the attending hospitalist and the nurse when needed. New renal recommendations as above. Examination: Subjective Date of service: 04/23/20 Principal diagnosis: Elevated cardiac enzymes Objective - Vital Signs Vital signs: Vital Signs - 12hr 04/22/20 04/22/20 04/22/20 22:41 22:51 23:00 Temperature Pulse Rate 75 73 Respiratory 22 23 Rate Blood Pressure 131/65 131/65 139/69 Blood Pressure [Left] O2 Sat by Pulse 100 100 100 Oximetry 04/22/20 04/23/20 04/23/20 23:10 00:12 03:19 Temperature 97.6 F Pulse Rate 68 69 Respiratory 28 H 28 H Rate Blood Pressure 131/65 107/51 Blood Pressure [Left] O2 Sat by Pulse 100 100 100 Oximetry 04/23/20 04/23/20 04/23/20 05:00 05:25 07:56 Temperature 98.1 F 98.7 F Pulse Rate 76 88 Respiratory 24 18 Rate Blood Pressure 124/58 Blood Pressure 144/67 [Left] O2 Sat by Pulse 100 99 100 Oximetry - Lab 04/23/20 06:07 04/23/20 06:07 Most recent lab results ABG pH 7.390 pH Units (7.350-7.450) 04/22/20 04:40 ABG pCO2 32.4 mm Hg 04/22/20 04:40 ABG pO2 85.3 mm Hg (80.0-90.0) 04/22/20 04:40 ABG HCO3 19.2 mmol/L (20.0-26.0) L 04/22/20 04:40 ABG O2 Saturation 96.9 % (95.0-99.0) 04/22/20 04:40 Calcium 9.2 mg/dL (8.4-10.2) 04/23/20 06:07 Phosphorus 3.30 mg/dL (2.5-4.5) 04/20/20 05:19 Magnesium 1.60 mg/dL (1.7-2.3) L 04/22/20 18:20 Urine Creatinine 190.1 mg/dL (0.1-20.0) H 04/21/20 Unknown Urine Sodium 44 mmol/L 04/21/20 Unknown Medications & Allergies - Medications Allergies/Adverse Reactions: Allergies erythromycin base [From Erythrocin] Allergy (Verified 11/26/18 06:03) Itching Penicillins Allergy (Verified 11/26/18 06:02) Rash Home Medications: Home Medications Medication Instructions Recorded Confirmed Last Taken Type Atorvastatin Calcium 40 mg PO BID 11/26/18 04/17/20 11/25/18 08:00 History Cholecalciferol Vit D3 [Vitamin D3 1,000 1000units PO QDAY 11/26/18 04/17/20 11/25/18 08:00 History 1,000 UNIT TAB] HYDROcodone/APAP 5-325 [[place] 1 each PO Q4HR PRN 11/26/18 04/17/20 Unknown History 5-325 mg TAB] Hydrocortisone [Cortef TAB] 10 mg PO BID 11/26/18 04/17/20 Unknown History Insulin Glargine,Hum.rec.anlog 60 unit SQ QHS 11/26/18 04/17/20 Unknown History [Lantus Solostar] Insulin Glargine,Hum.rec.anlog See Protocol SUB-Q QACHS 11/26/18 04/17/20 Unknown History [Lantus Solostar] Lasix TAB 20 mg PO BID 11/26/18 04/17/20 Unknown History Levothyroxine [Synthroid] 50 mcg PO QAM 11/26/18 04/17/20 11/24/18 08:00 History Lispro Insulin [HumaLOG] See Protocol SUB-Q ACHS 11/26/18 04/17/20 11/25/18 History Metoprolol [Lopressor TAB] 50 mg PO BID 11/26/18 04/17/20 Unknown History Mometasone 0.1% (Nf) 0.1 units TP BID 11/26/18 04/17/20 Unknown History Pantoprazole [Protonix TAB] 40 mg PO BID 11/26/18 04/17/20 Unknown History Petrolatum,White [Vaseline White 5 gm TP BID 11/26/18 04/17/20 Unknown History Petroleum] Pregabalin [Lyrica] 150 mg PO BID 11/26/18 04/17/20 11/25/18 08:00 History lamoTRIgine [LaMICtal] 25 mg PO BID 11/26/18 04/17/20 Unknown History ALBUTEROL NEB's [Proventil 0.083% 2.5 mg IH Q4HRT PRN nebu 05/20/19 04/17/20 Unknown Rx NEBS] Apixaban [Eliquis] 5 mg PO BID tablet 05/20/19 04/17/20 Unknown Rx AtorvaSTATin [Lipitor] 40 mg PO QDAY tablet 05/20/19 04/17/20 Unknown Rx Active Medications: Generic Name Dose Route Start Last Admin Trade Name Freq PRN Reason Stop Dose Admin Acetaminophen 650 mg 04/17/20 23:57 04/18/20 01:04 Acetaminophen 650 Mg Rect Supp [place] 650 mg Q6H PRN Administration Pain, Mild (1-3) Albuterol 2.5 mg 04/17/20 08:00 Albuterol 2.5 Mg/3 Ml Nebu IH Q4HRT PRN Shortness Of Breath Amiodarone HCl 200 mg 04/19/20 13:00 04/22/20 21:47 Amiodarone 200 Mg Tab PO 200 mg BID VIOLETA Administration Aspirin 81 mg 04/19/20 13:00 04/22/20 09:01 Aspirin 81 Mg Tab Chew PO 81 mg QDAY VIOLETA Administration Atorvastatin Calcium 40 mg 04/17/20 22:00 04/22/20 21:48 Atorvastatin 40 Mg Tab PO 40 mg QHS VIOLETA Administration Cholecalciferol 1,000 unit 04/17/20 14:00 04/22/20 09:02 Cholecalciferol (Vit D3) 1000 Unit (25 Mcg) Tab PO 1,000 unit DAILY VIOLETA Administration Clopidogrel Bisulfate 75 mg 04/20/20 10:00 04/22/20 09:02 Clopidogrel 75 Mg Tab PO 75 mg QDAY VIOLETA Administration Heparin Sodium (Porcine) 5,000 unit 04/19/20 13:00 04/22/20 21:48 Heparin 5,000 Unit/1 Ml Vial SUB-Q 5,000 unit Q12HR VIOLETA Administration Hydrocortisone Acetate 10 mg 04/17/20 10:00 04/22/20 21:57 Hydrocortisone 10 Mg Tab PO 10 mg BID VIOLETA Administration Potassium Chloride 40 meq/ 1,020 mls @ 100 mls/hr 04/22/20 09:00 04/22/20 21:56 Dextrose IV 100 mls/hr DIRECT VIOLETA Administration Ceftriaxone Sodium 2 gm in 100 mls @ 200 mls/hr 04/22/20 11:00 04/22/20 14:25 Rocephin/Ns 2 Gm/100 Ml IV 200 mls/hr Q24HR VIOLETA Administration Protocol Vancomycin HCl 1 gm in 250 mls @ 167.007 mls/hr 04/23/20 10:00 Vancomycin/Ns 1 Gm/250 Ml IV 04/23/20 11:29 ONCE ONE Vancomycin HCl 1 gm in 250 mls @ 166.667 mls/hr 04/23/20 23:00 Vancomycin/Ns 1 Gm/250 Ml IV Q12H [facility] Insulin Glargine 26 units 04/19/20 22:00 04/22/20 21:58 Insulin Glargine 100 Units/Ml SUB-Q 26 units QHS [facility] Administration Insulin Human Lispro 0 unit 04/21/20 18:00 04/23/20 09:21 Insulin Lispro 100 Unit/Ml Vial 3 Ml SUB-Q Not Given Q6H [facility] Protocol Lamotrigine 25 mg 04/17/20 10:00 04/22/20 21:57 Lamotrigine 25 Mg Tab PO 25 mg BID VIOLETA Administration Levothyroxine Sodium 50 mcg 04/17/20 10:00 04/23/20 05:46 Levothyroxine 50 Mcg Tab PO Not Given DAILY@0600 [facility] Metoprolol Tartrate 50 mg 04/19/20 14:00 04/22/20 21:47 Metoprolol Tartrate 50 Mg Tab PO 50 mg TID [facility] Administration Nitroglycerin 0.2 mg 04/21/20 06:00 04/22/20 06:41 Nitroglycerin 0.2 Mg Patch 24hr TD 0.2 mg QDAY@0600 VIOLETA Administration Pantoprazole Sodium 40 mg 04/21/20 10:00 04/22/20 21:57 Pantoprazole 40 Mg Inj IV 40 mg BID VIOLETA Administration Pregabalin 150 mg 04/17/20 10:00 04/22/20 21:58 Pregabalin 75 Mg Cap PO 150 mg BID VIOLETA Administration
--- NOTE | 2020-04-23 10:58 | XRay Report ---
ABDOMEN 1 VIEW 04/23/2020 9:46 AM INDICATION / CLINICAL INFORMATION: NG PLACEMENT. COMPARISON: 04/20/2020 FINDINGS: TUBES / LINES: Gastric tube projects over the left upper quadrant, likely in the mid-distal stomach. BOWEL GAS PATTERN: No significant abnormality. FREE AIR / EXTRALUMINAL GAS: None. ADDITIONAL FINDINGS: Mild bibasilar atelectasis. IMPRESSION: 1. Gastric tube projects over the left upper quadrant, likely in the mid--distal stomach. Signer Name: Apollo Diehl MD Signed: 04/23/2020 10:53 AM Workstation Name: [id number]
--- NOTE | 2020-04-23 11:35 | Progress Note ---
Assessment and Plan 54 y/o female obese with prior history of sarcoid now with altered mental state and intubated at recommendation of neurology secondary to GCS 1. Pulm-Wean FiO2 to off for sats >88%. Continue bipap QHS and PRN, patient has known JANI but readily admits to noncompliance 2. Neuro-Follow up neuro 3. ID- Follow up ID recs for today, reviewed note from yesterday, awaiting CT and LP 4. Guarded prognosis. Subjective Date of service: 04/23/20 Principal diagnosis: Elevated cardiac enzymes Interval history: Successful extubation and transition to floor. Stable. Wore bipap off and on last night. Maybe a total of 3 hours based on what I can tell from documentation. Objective Vital Signs - 12hr 04/23/20 04/23/20 04/23/20 00:12 03:19 05:00 Temperature 97.6 F Pulse Rate 68 69 Respiratory 28 H 28 H Rate Blood Pressure 107/51 Blood Pressure [Left] O2 Sat by Pulse 100 100 100 Oximetry 04/23/20 04/23/20 05:25 07:56 Temperature 98.1 F 98.7 F Pulse Rate 76 88 Respiratory 24 18 Rate Blood Pressure 124/58 Blood Pressure 144/67 [Left] O2 Sat by Pulse 99 100 Oximetry Constitutional: no acute distress, alert, other (morbidly obese) Eyes: non-icteric ENT: other (orally intubated, not on sedation.) Neck: supple, other (large in circumference) Effort: normal Ascultation: Bilateral: clear Percussion: Bilateral: not dull Cardiovascular: regular rate and rhythm Gastrointestinal: normoactive bowel sounds, soft, other (obese) Extremities: other (right foot rapped, poor skin integrity on left) CBC and BMP: 04/23/20 06:07 04/23/20 06:07 ABG, PT/INR, D-dimer: ABG ABG pH 7.390 pH Units (7.350-7.450) 04/22/20 04:40 POC ABG pCO2 37.8 mmHg (32.0-48.0) 04/21/20 03:45 ABG pCO2 32.4 mm Hg 04/22/20 04:40 POC ABG pO2 145.5 mmHg (83-108) H 04/21/20 03:45 ABG pO2 85.3 mm Hg (80.0-90.0) 04/22/20 04:40 POC ABG HCO3 20.1 04/21/20 03:45 ABG O2 Saturation 96.9 % (95.0-99.0) 04/22/20 04:40 PT/INR, D-dimer PT 14.3 Sec. (12.2-14.9) 04/21/20 09:00 INR 1.12 (0.87-1.13) 04/21/20 09:00 D-Dimer 1201.23 ng/mlDDU (0-234) H 04/17/20 10:38 Abnormal lab findings: Abnormal Labs 04/16/20 04/16/20 04/16/20 19:29 19:29 19:31 WBC Hgb Hct MCV MCH MCHC RDW Plt Count Lymph % (Auto) [place] % (Auto) [place] # (Auto) Baso # (Auto) Seg Neutrophils % Seg Neuts % (Manual) Lymphocytes % (Manual) Monocytes % (Manual) Nucleated RBC % Seg Neutrophils # Seg Neutrophils # Man Monocytes # (Manual) PT 19.5 H INR 1.64 H APTT 43.3 H D-Dimer ABG pH POC ABG pO2 ABG HCO3 ABG Base Excess ABG Hemoglobin ABG Sodium ABG Potassium ABG Chloride ABG Glucose Oxyhemoglobin Sodium Potassium 5.3 H Chloride Carbon Dioxide 20 L BUN 49 H Creatinine 1.7 H Glucose 295 H POC Glucose 243 H Hemoglobin A1c Calcium Magnesium Ferritin ALT Alkaline Phosphatase Lactate Dehydrogenase Total Creatine Kinase Troponin T 0.067 H C-Reactive Protein Albumin Triglycerides 171 H Cholesterol 212 H LDL Cholesterol Direct 147 H HDL Cholesterol 35 L Arterial Blood Glucose Urine WBC (Auto) Urine Creatinine Vancomycin Trough Random Vancomycin 04/16/20 04/16/20 04/17/20 19:45 20:37 08:43 WBC 20.6 H Hgb Hct MCV 75 L MCH 24 L MCHC RDW 15.6 H Plt Count 470 H Lymph % (Auto) [place] % (Auto) [place] # (Auto) Baso # (Auto) Seg Neutrophils % Seg Neuts % (Manual) 71.0 H Lymphocytes % (Manual) Monocytes % (Manual) 10.0 H Nucleated RBC % Seg Neutrophils # Seg Neutrophils # Man 14.6 H Monocytes # (Manual) 2.1 H PT INR APTT D-Dimer ABG pH POC ABG pO2 ABG HCO3 ABG Base Excess ABG Hemoglobin ABG Sodium ABG Potassium ABG Chloride ABG Glucose Oxyhemoglobin Sodium Potassium Chloride Carbon Dioxide BUN Creatinine Glucose POC Glucose 147 H Hemoglobin A1c Calcium Magnesium 2.70 H Ferritin ALT Alkaline Phosphatase Lactate Dehydrogenase Total Creatine Kinase 303 H Troponin T C-Reactive Protein Albumin Triglycerides Cholesterol LDL Cholesterol Direct HDL Cholesterol Arterial Blood Glucose Urine WBC (Auto) Urine Creatinine Vancomycin Trough Random Vancomycin 04/17/20 04/17/20 04/17/20 10:38 10:38 10:38 WBC Hgb Hct MCV MCH MCHC RDW Plt Count Lymph % (Auto) [place] % (Auto) [place] # (Auto) Baso # (Auto) Seg Neutrophils % Seg Neuts % (Manual) Lymphocytes % (Manual) Monocytes % (Manual) Nucleated RBC % Seg Neutrophils # Seg Neutrophils # Man Monocytes # (Manual) PT INR APTT D-Dimer 1201.23 H ABG pH POC ABG pO2 ABG HCO3 ABG Base Excess ABG Hemoglobin ABG Sodium ABG Potassium ABG Chloride ABG Glucose Oxyhemoglobin Sodium Potassium Chloride Carbon Dioxide BUN Creatinine Glucose 172 H POC Glucose Hemoglobin A1c Calcium Magnesium Ferritin 80707.0 H ALT Alkaline Phosphatase Lactate Dehydrogenase 246 H Total Creatine Kinase Troponin T C-Reactive Protein 13.90 H Albumin Triglycerides Cholesterol LDL Cholesterol Direct HDL Cholesterol Arterial Blood Glucose Urine WBC (Auto) Urine Creatinine Vancomycin Trough Random Vancomycin 04/17/20 04/17/20 04/17/20 10:38 10:38 11:50 WBC 18.0 H Hgb Hct MCV 75 L MCH 23 L MCHC RDW 15.9 H Plt Count Lymph % (Auto) [place] % (Auto) [place] # (Auto) Baso # (Auto) Seg Neutrophils % Seg Neuts % (Manual) 83.0 H Lymphocytes % (Manual) 11.0 L Monocytes % (Manual) Nucleated RBC % 1.0 H Seg Neutrophils # Seg Neutrophils # Man 14.9 H Monocytes # (Manual) 0.9 H PT INR APTT D-Dimer ABG pH POC ABG pO2 ABG HCO3 ABG Base Excess ABG Hemoglobin ABG Sodium ABG Potassium ABG Chloride ABG Glucose Oxyhemoglobin Sodium Potassium 5.2 H Chloride 107.3 H Carbon Dioxide 21 L BUN 44 H Creatinine Glucose 167 H POC Glucose 146 H Hemoglobin A1c Calcium 10.3 H Magnesium Ferritin ALT Alkaline Phosphatase Lactate Dehydrogenase Total Creatine Kinase Troponin T C-Reactive Protein Albumin Triglycerides Cholesterol LDL Cholesterol Direct HDL Cholesterol Arterial Blood Glucose Urine WBC (Auto) Urine Creatinine Vancomycin Trough Random Vancomycin 04/17/20 04/17/20 04/18/20 17:10 20:41 05:23 WBC Hgb Hct MCV MCH MCHC RDW Plt Count Lymph % (Auto) [place] % (Auto) [place] # (Auto) Baso # (Auto) Seg Neutrophils % Seg Neuts % (Manual) Lymphocytes % (Manual) Monocytes % (Manual) Nucleated RBC % Seg Neutrophils # Seg Neutrophils # Man Monocytes # (Manual) PT INR APTT D-Dimer ABG pH POC ABG pO2 ABG HCO3 ABG Base Excess ABG Hemoglobin ABG Sodium ABG Potassium ABG Chloride ABG Glucose Oxyhemoglobin Sodium Potassium Chloride Carbon Dioxide BUN Creatinine Glucose POC Glucose 165 H 212 H Hemoglobin A1c 7.6 H Calcium Magnesium Ferritin ALT Alkaline Phosphatase Lactate Dehydrogenase Total Creatine Kinase Troponin T C-Reactive Protein Albumin Triglycerides Cholesterol LDL Cholesterol Direct HDL Cholesterol Arterial Blood Glucose Urine WBC (Auto) Urine Creatinine Vancomycin Trough Random Vancomycin 04/18/20 04/18/20 04/18/20 05:23 05:23 07:33 WBC 16.6 H Hgb Hct MCV 76 L MCH 24 L MCHC RDW 15.9 H Plt Count Lymph % (Auto) 9.8 L [place] % (Auto) 12.9 H [place] # (Auto) 2.1 H Baso # (Auto) Seg Neutrophils % 75.7 H Seg Neuts % (Manual) Lymphocytes % (Manual) Monocytes % (Manual) Nucleated RBC % Seg Neutrophils # 12.6 H Seg Neutrophils # Man Monocytes # (Manual) PT INR APTT D-Dimer ABG pH POC ABG pO2 ABG HCO3 ABG Base Excess ABG Hemoglobin ABG Sodium ABG Potassium ABG Chloride ABG Glucose Oxyhemoglobin Sodium 148 H Potassium 5.5 H Chloride 114.3 H Carbon Dioxide 19 L BUN 31 H Creatinine Glucose 201 H POC Glucose 178 H Hemoglobin A1c Calcium Magnesium Ferritin ALT Alkaline Phosphatase Lactate Dehydrogenase Total Creatine Kinase Troponin T C-Reactive Protein Albumin Triglycerides Cholesterol LDL Cholesterol Direct HDL Cholesterol Arterial Blood Glucose Urine WBC (Auto) Urine Creatinine Vancomycin Trough Random Vancomycin 04/18/20 04/18/20 04/18/20 11:38 16:07 20:44 WBC Hgb Hct MCV MCH MCHC RDW Plt Count Lymph % (Auto) [place] % (Auto) [place] # (Auto) Baso # (Auto) Seg Neutrophils % Seg Neuts % (Manual) Lymphocytes % (Manual) Monocytes % (Manual) Nucleated RBC % Seg Neutrophils # Seg Neutrophils # Man Monocytes # (Manual) PT INR APTT D-Dimer ABG pH POC ABG pO2 ABG HCO3 ABG Base Excess ABG Hemoglobin ABG Sodium ABG Potassium ABG Chloride ABG Glucose Oxyhemoglobin Sodium Potassium Chloride Carbon Dioxide BUN Creatinine Glucose POC Glucose 187 H 248 H 243 H Hemoglobin A1c Calcium Magnesium Ferritin ALT Alkaline Phosphatase Lactate Dehydrogenase Total Creatine Kinase Troponin T C-Reactive Protein Albumin Triglycerides Cholesterol LDL Cholesterol Direct HDL Cholesterol Arterial Blood Glucose Urine WBC (Auto) Urine Creatinine Vancomycin Trough Random Vancomycin 04/19/20 04/19/20 04/19/20 04:55 07:40 12:01 WBC Hgb Hct MCV MCH MCHC RDW Plt Count Lymph % (Auto) [place] % (Auto) [place] # (Auto) Baso # (Auto) Seg Neutrophils % Seg Neuts % (Manual) Lymphocytes % (Manual) Monocytes % (Manual) Nucleated RBC % Seg Neutrophils # Seg Neutrophils # Man Monocytes # (Manual) PT INR APTT D-Dimer ABG pH POC ABG pO2 ABG HCO3 ABG Base Excess ABG Hemoglobin ABG Sodium ABG Potassium ABG Chloride ABG Glucose Oxyhemoglobin Sodium 152 H Potassium Chloride 117.2 H Carbon Dioxide BUN 27 H Creatinine Glucose 325 H POC Glucose 258 H 251 H Hemoglobin A1c Calcium Magnesium Ferritin ALT Alkaline Phosphatase Lactate Dehydrogenase Total Creatine Kinase Troponin T C-Reactive Protein Albumin Triglycerides Cholesterol LDL Cholesterol Direct HDL Cholesterol Arterial Blood Glucose Urine WBC (Auto) Urine Creatinine Vancomycin Trough Random Vancomycin 04/19/20 04/19/20 04/20/20 16:19 21:41 05:19 WBC 14.8 H Hgb Hct MCV 77 L MCH 23 L MCHC RDW 16.5 H Plt Count Lymph % (Auto) [place] % (Auto) 13.6 H [place] # (Auto) 2.0 H Baso # (Auto) 0.2 H Seg Neutrophils % Seg Neuts % (Manual) Lymphocytes % (Manual) Monocytes % (Manual) Nucleated RBC % Seg Neutrophils # 10.2 H Seg Neutrophils # Man Monocytes # (Manual) PT INR APTT D-Dimer ABG pH POC ABG pO2 ABG HCO3 ABG Base Excess ABG Hemoglobin ABG Sodium ABG Potassium ABG Chloride ABG Glucose Oxyhemoglobin Sodium Potassium Chloride Carbon Dioxide BUN Creatinine Glucose POC Glucose 263 H 276 H Hemoglobin A1c Calcium Magnesium Ferritin ALT Alkaline Phosphatase Lactate Dehydrogenase Total Creatine Kinase Troponin T C-Reactive Protein Albumin Triglycerides Cholesterol LDL Cholesterol Direct HDL Cholesterol Arterial Blood Glucose Urine WBC (Auto) Urine Creatinine Vancomycin Trough Random Vancomycin 04/20/20 04/20/20 04/20/20 05:19 07:22 10:17 WBC Hgb Hct MCV MCH MCHC RDW Plt Count Lymph % (Auto) [place] % (Auto) [place] # (Auto) Baso # (Auto) Seg Neutrophils % Seg Neuts % (Manual) Lymphocytes % (Manual) Monocytes % (Manual) Nucleated RBC % Seg Neutrophils # Seg Neutrophils # Man Monocytes # (Manual) PT INR APTT D-Dimer ABG pH POC ABG pO2 ABG HCO3 ABG Base Excess ABG Hemoglobin ABG Sodium ABG Potassium ABG Chloride ABG Glucose Oxyhemoglobin Sodium 154 H Potassium Chloride 119.6 H Carbon Dioxide BUN 24 H Creatinine Glucose 298 H POC Glucose 227 H Hemoglobin A1c Calcium Magnesium Ferritin ALT 58 H Alkaline Phosphatase 150 H Lactate Dehydrogenase Total Creatine Kinase Troponin T C-Reactive Protein Albumin 3.3 L Triglycerides Cholesterol LDL Cholesterol Direct HDL Cholesterol Arterial Blood Glucose Urine WBC (Auto) Urine Creatinine Vancomycin Trough 56.2 H Random Vancomycin 04/20/20 04/20/20 04/20/20 10:57 16:05 16:15 WBC Hgb Hct MCV MCH MCHC RDW Plt Count Lymph % (Auto) [place] % (Auto) [place] # (Auto) Baso # (Auto) Seg Neutrophils % Seg Neuts % (Manual) Lymphocytes % (Manual) Monocytes % (Manual) Nucleated RBC % Seg Neutrophils # Seg Neutrophils # Man Monocytes # (Manual) PT INR APTT D-Dimer ABG pH POC ABG pO2 ABG HCO3 ABG Base Excess ABG Hemoglobin ABG Sodium ABG Potassium ABG Chloride ABG Glucose Oxyhemoglobin Sodium 156 H Potassium Chloride 122.0 H Carbon Dioxide BUN 26 H Creatinine 1.4 H D Glucose 226 H POC Glucose 222 H 183 H Hemoglobin A1c Calcium Magnesium Ferritin ALT Alkaline Phosphatase Lactate Dehydrogenase Total Creatine Kinase Troponin T C-Reactive Protein Albumin Triglycerides Cholesterol LDL Cholesterol Direct HDL Cholesterol Arterial Blood Glucose Urine WBC (Auto) Urine Creatinine Vancomycin Trough Random Vancomycin 04/20/20 04/21/20 04/21/20 18:17 03:45 05:24 WBC 14.9 H Hgb 9.7 L Hct MCV 76 L MCH 22 L MCHC 29 L RDW 16.6 H Plt Count 462 H Lymph % (Auto) [place] % (Auto) [place] # (Auto) Baso # (Auto) Seg Neutrophils % Seg Neuts % (Manual) 71.0 H Lymphocytes % (Manual) Monocytes % (Manual) 12.0 H Nucleated RBC % Seg Neutrophils # Seg Neutrophils # Man 10.6 H Monocytes # (Manual) 1.8 H PT INR APTT D-Dimer ABG pH 7.286 L POC ABG pO2 137.2 H 145.5 H ABG HCO3 ABG Base Excess ABG Hemoglobin 11.1 L 10.6 L ABG Sodium 153.2 H 153.1 H ABG Potassium 3.2 L ABG Chloride 121.0 H 120.0 H ABG Glucose 256 H 223 H Oxyhemoglobin Sodium Potassium Chloride Carbon Dioxide BUN Creatinine Glucose POC Glucose Hemoglobin A1c Calcium Magnesium Ferritin ALT Alkaline Phosphatase Lactate Dehydrogenase Total Creatine Kinase Troponin T C-Reactive Protein Albumin Triglycerides Cholesterol LDL Cholesterol Direct HDL Cholesterol Arterial Blood Glucose 256 H 223 H Urine WBC (Auto) Urine Creatinine Vancomycin Trough Random Vancomycin 04/21/20 04/21/20 04/21/20 05:24 09:00 12:14 WBC Hgb Hct MCV MCH MCHC RDW Plt Count Lymph % (Auto) [place] % (Auto) [place] # (Auto) Baso # (Auto) Seg Neutrophils % Seg Neuts % (Manual) Lymphocytes % (Manual) Monocytes % (Manual) Nucleated RBC % Seg Neutrophils # Seg Neutrophils # Man Monocytes # (Manual) PT INR APTT D-Dimer ABG pH POC ABG pO2 ABG HCO3 ABG Base Excess ABG Hemoglobin ABG Sodium ABG Potassium ABG Chloride ABG Glucose Oxyhemoglobin Sodium 154 H Potassium 3.4 L Chloride 121.3 H Carbon Dioxide 19 L D BUN 28 H Creatinine 1.3 H Glucose 230 H POC Glucose 197 H Hemoglobin A1c Calcium Magnesium Ferritin ALT Alkaline Phosphatase 136 H Lactate Dehydrogenase Total Creatine Kinase Troponin T C-Reactive Protein Albumin 3.2 L Triglycerides Cholesterol LDL Cholesterol Direct HDL Cholesterol Arterial Blood Glucose Urine WBC (Auto) Urine Creatinine Vancomycin Trough Random Vancomycin 41.4 H 04/21/20 04/21/20 04/21/20 16:54 18:12 23:09 WBC Hgb Hct MCV MCH MCHC RDW Plt Count Lymph % (Auto) [place] % (Auto) [place] # (Auto) Baso # (Auto) Seg Neutrophils % Seg Neuts % (Manual) Lymphocytes % (Manual) Monocytes % (Manual) Nucleated RBC % Seg Neutrophils # Seg Neutrophils # Man Monocytes # (Manual) PT INR APTT D-Dimer ABG pH POC ABG pO2 ABG HCO3 ABG Base Excess ABG Hemoglobin ABG Sodium ABG Potassium ABG Chloride ABG Glucose Oxyhemoglobin Sodium 151 H Potassium 3.1 L Chloride 118.7 H Carbon Dioxide 20 L BUN 30 H Creatinine 1.3 H Glucose 243 H POC Glucose 195 H 179 H Hemoglobin A1c Calcium Magnesium Ferritin ALT Alkaline Phosphatase Lactate Dehydrogenase Total Creatine Kinase Troponin T C-Reactive Protein Albumin Triglycerides Cholesterol LDL Cholesterol Direct HDL Cholesterol Arterial Blood Glucose Urine WBC (Auto) Urine Creatinine Vancomycin Trough Random Vancomycin 04/21/20 04/21/20 04/22/20 Unknown Unknown 04:40 WBC Hgb Hct MCV MCH MCHC RDW Plt Count Lymph % (Auto) [place] % (Auto) [place] # (Auto) Baso # (Auto) Seg Neutrophils % Seg Neuts % (Manual) Lymphocytes % (Manual) Monocytes % (Manual) Nucleated RBC % Seg Neutrophils # Seg Neutrophils # Man Monocytes # (Manual) PT INR APTT D-Dimer ABG pH POC ABG pO2 ABG HCO3 19.2 L ABG Base Excess -5.0 L ABG Hemoglobin 10.0 L ABG Sodium ABG Potassium ABG Chloride ABG Glucose Oxyhemoglobin 94.8 L Sodium Potassium Chloride Carbon Dioxide BUN Creatinine Glucose POC Glucose Hemoglobin A1c Calcium Magnesium Ferritin ALT Alkaline Phosphatase Lactate Dehydrogenase Total Creatine Kinase Troponin T C-Reactive Protein Albumin Triglycerides Cholesterol LDL Cholesterol Direct HDL Cholesterol Arterial Blood Glucose Urine WBC (Auto) 21.0 H Urine Creatinine 190.1 H Vancomycin Trough Random Vancomycin 04/22/20 04/22/20 04/22/20 04:54 04:54 05:30 WBC 13.0 H Hgb 9.1 L Hct 29.9 L MCV 75 L MCH 23 L MCHC RDW 16.1 H Plt Count Lymph % (Auto) 12.6 L [place] % (Auto) 9.0 H [place] # (Auto) 1.2 H Baso # (Auto) Seg Neutrophils % 76.0 H Seg Neuts % (Manual) Lymphocytes % (Manual) Monocytes % (Manual) Nucleated RBC % Seg Neutrophils # 9.9 H Seg Neutrophils # Man Monocytes # (Manual) PT INR APTT D-Dimer ABG pH POC ABG pO2 ABG HCO3 ABG Base Excess ABG Hemoglobin ABG Sodium ABG Potassium ABG Chloride ABG Glucose Oxyhemoglobin Sodium 151 H Potassium 2.8 L* Chloride 118.7 H Carbon Dioxide 21 L BUN 28 H Creatinine 1.3 H Glucose 227 H POC Glucose 182 H Hemoglobin A1c Calcium Magnesium Ferritin ALT Alkaline Phosphatase Lactate Dehydrogenase Total Creatine Kinase Troponin T C-Reactive Protein Albumin 3.2 L Triglycerides Cholesterol LDL Cholesterol Direct HDL Cholesterol Arterial Blood Glucose Urine WBC (Auto) Urine Creatinine Vancomycin Trough Random Vancomycin 04/22/20 04/22/20 04/22/20 11:37 17:43 18:20 WBC Hgb Hct MCV MCH MCHC RDW Plt Count Lymph % (Auto) [place] % (Auto) [place] # (Auto) Baso # (Auto) Seg Neutrophils % Seg Neuts % (Manual) Lymphocytes % (Manual) Monocytes % (Manual) Nucleated RBC % Seg Neutrophils # Seg Neutrophils # Man Monocytes # (Manual) PT INR APTT D-Dimer ABG pH POC ABG pO2 ABG HCO3 ABG Base Excess ABG Hemoglobin ABG Sodium ABG Potassium ABG Chloride ABG Glucose Oxyhemoglobin Sodium 148 H Potassium Chloride 117.3 H Carbon Dioxide 20 L BUN 25 H Creatinine Glucose 229 H POC Glucose 200 H 199 H Hemoglobin A1c Calcium Magnesium 1.60 L Ferritin ALT Alkaline Phosphatase Lactate Dehydrogenase Total Creatine Kinase Troponin T C-Reactive Protein Albumin Triglycerides Cholesterol LDL Cholesterol Direct HDL Cholesterol Arterial Blood Glucose Urine WBC (Auto) Urine Creatinine Vancomycin Trough Random Vancomycin 04/23/20 04/23/20 04/23/20 01:16 06:07 06:07 WBC 12.9 H Hgb 9.7 L Hct MCV 76 L MCH 23 L MCHC RDW 16.4 H Plt Count Lymph % (Auto) [place] % (Auto) 9.6 H [place] # (Auto) 1.2 H Baso # (Auto) Seg Neutrophils % 73.5 H Seg Neuts % (Manual) Lymphocytes % (Manual) Monocytes % (Manual) Nucleated RBC % Seg Neutrophils # 9.4 H Seg Neutrophils # Man Monocytes # (Manual) PT INR APTT D-Dimer ABG pH POC ABG pO2 ABG HCO3 ABG Base Excess ABG Hemoglobin ABG Sodium ABG Potassium ABG Chloride ABG Glucose Oxyhemoglobin Sodium 148 H Potassium 3.5 L Chloride 116.8 H Carbon Dioxide 20 L BUN 24 H Creatinine Glucose 188 H POC Glucose 145 H Hemoglobin A1c Calcium Magnesium Ferritin ALT Alkaline Phosphatase Lactate Dehydrogenase Total Creatine Kinase Troponin T C-Reactive Protein Albumin 3.2 L Triglycerides Cholesterol LDL Cholesterol Direct HDL Cholesterol Arterial Blood Glucose Urine WBC (Auto) Urine Creatinine Vancomycin Trough Random Vancomycin 04/23/20 07:57 WBC Hgb Hct MCV MCH MCHC RDW Plt Count Lymph % (Auto) [place] % (Auto) [place] # (Auto) Baso # (Auto) Seg Neutrophils % Seg Neuts % (Manual) Lymphocytes % (Manual) Monocytes % (Manual) Nucleated RBC % Seg Neutrophils # Seg Neutrophils # Man Monocytes # (Manual) PT INR APTT D-Dimer ABG pH POC ABG pO2 ABG HCO3 ABG Base Excess ABG Hemoglobin ABG Sodium ABG Potassium ABG Chloride ABG Glucose Oxyhemoglobin Sodium Potassium Chloride Carbon Dioxide BUN Creatinine Glucose POC Glucose 145 H Hemoglobin A1c Calcium Magnesium Ferritin ALT Alkaline Phosphatase Lactate Dehydrogenase Total Creatine Kinase Troponin T C-Reactive Protein Albumin Triglycerides Cholesterol LDL Cholesterol Direct HDL Cholesterol Arterial Blood Glucose Urine WBC (Auto) Urine Creatinine Vancomycin Trough Random Vancomycin
[2020-04-23] MEDS: AMIODARONE 200 MG TAB PO SCH ×2 (12:26→22:00)
[2020-04-23] MEDS: NITROGLYCERIN 2% OINT 1 GM TP ONE ×2 (12:26→12:28)
[2020-04-23] MEDS: CLOPIDOGREL 75 MG TAB PO SCH (12:26)
[2020-04-23] MEDS: PREGABALIN 75 MG CAP PO SCH ×2 (12:26→22:00)
[2020-04-23] MEDS: HEPARIN 5,000 UNIT/1 ML VIAL SUB-Q SCH ×2 (12:27→21:59)
[2020-04-23] MEDS: ASPIRIN 81 MG TAB CHEW PO SCH (12:27)
[2020-04-23] MEDS: PANTOPRAZOLE 40 MG INJ IV SCH ×2 (12:28→21:58)
[2020-04-23] MEDS: METOPROLOL TARTRATE 50 MG TAB PO SCH ×3 (12:42→22:02)
[2020-04-23] MEDS: NITROGLYCERIN 0.2 MG PATCH 24HR TD SCH (12:50)
[2020-04-23] MEDS: CHOLECALCIFEROL (VIT D3) 1000 UNIT (25 mcg) TAB PO SCH (12:52)
[2020-04-23] MEDS: lamoTRIgine 25 MG TAB PO SCH ×2 (13:25→22:16)
[2020-04-23] MEDS: HYDROCORTISONE 10 MG TAB PO SCH ×2 (13:25→22:15)
[2020-04-23] MEDS: cefTRIAXone/NS 2 GM/100 ML 2 GM/100 ML BAG IV SCH (13:26)
--- NOTE | 2020-04-23 13:53 | Progress Note ---
Subjective Date of service: 04/23/20 Principal diagnosis: Elevated cardiac enzymes Interval history: Assessment and plan: 54-year-old female with multiple medical problems including Peptic ulcer disease, Hypothyroidism, JANI, HLD, insulin-dependent diabetes, hypertension, and GERD, peripheral neuropathy and hyperlipidemia was found unresponsive and diaphoretic at home. In the ED the patient was feeling groggy and admits to shortness of breath and cough. Very when asked if she remembers how she ended up in the emergency room patient could not answer the question. Very poor historian. No fever or chills. Not known whether exposed to coronavirus. Early this year was treated for sepsis and encephalopathy. CXR: Unremarkable CT Head: IMPRESSION: There are stable postoperative changes involving frontal lobes with encephalomalacia and residual left parafalcine lesion as detailed above. Overall, this been no significant interval change from 11/27/2018. 04/17: Awaiting todays labs to evaluate renal function and obtain Rand Maker. Cardiology consulted for Type 2 OK, wound care also consulted due to 5th right toe wound, will adjust Insulin for Blood sugar. 04/18. Labs reviewed. Cardiology recommends ischemic work up prior to DC. Monitor blood gas 04/19. Discussed with patient's daughter who mentions that patient is usually able to have a normal conversation. Patient is also able to use her phone and post pictures on Facebook. Daughter's last conversation with patient was 4 days ago. In light of these changes, will order an LP to rule out encephalitis. MRI brain and EEG also ordered as per neurology evaluation earlier. Labs have been reviewed-started on hypotonic solution for hypernatremia. 04/20. Plan for MRI brain and EEG today. LP still pending. Neurology evaluation. Labs reviewed-sodium 154. Continue hypotonic solution/ 04/20PM. Patient was intubated for airway protection and transferred to the critical care unit. 04/21. She is slightly awake this morning. Not clearly following commands during my encounter. She was afebrile overnight. Her labs shows leukocytosis. LP still pending. She will need MRI brain as well to rule out CVA. EEG ordered. CT abdomen and pelvis will be ordered to determine any source of infection. Awaiting neurology reevaluation. 04/22. Not able to have CT and MRI as she cannot fit into machine. Plan for LP. Remains intubated. Neurology to see 04/23/20 patient is awake and alert and oriented, lab results reviewed, cardiology, ID, pulmonary and nephrology notes reviewed Plan (1) Acute encephalopathy Current Visit: Yes Status: Acute Plan to address problem: Still persists. At baseline - she has a normal conversation with family as per daughter. Continue cefepime and vancomycin Needs LP. Will send CSF studies EEG Not able to have MRI brain Rule out other sources of possible infection - ID recs appreciated. (2) Sepsis Current Visit: Yes Status: Acute Qualifiers: Severe sepsis shock status: without septic shock Plan to address problem: No source of infection identified. IV cefepime and vancomycin started empirically. ID recs appreciated Awaiting LP. Not able to have CT abdomen and pelvis (3) Elevated troponin- ?Type 2 Current Visit: Yes Status: Acute Plan to address problem: Cardiology following. (4) JOEL (acute kidney injury) Current Visit: Yes Status: Acute Plan to address problem: Secondary to vasomotor nephropathy IV fluids (5) Hypernatremia Current Visit: Yes Status: Acute Plan to address problem: Poor intake Continue hypotonic solution Trend Na (6) IDDM (insulin dependent diabetes mellitus) Current Visit: Yes Status: Chronic Plan to address problem: Continue Lantus and SSI (7) Hyperlipidemia Current Visit: No Status: Chronic Qualifiers: Hyperlipidemia type: mixed hyperlipidemia Qualified Code(s): E78.2 - Mixed hyperlipidemia Plan to address problem: Continue statins (8) Hypertension Current Visit: Yes Status: Chronic Qualifiers: Hypertension type: essential hypertension Qualified Code(s): I10 - Essential (primary) hypertension Plan to address problem: Continue antihypertensives and adjust medications as necessary (9) GERD (gastroesophageal reflux disease) Current Visit: Yes Status: Chronic Qualifiers: Esophagitis presence: without esophagitis Qualified Code(s): K21.9 - Gastro-esophageal reflux disease without esophagitis Plan to address problem: Continue Protonix (10) Peripheral neuropathy Current Visit: Yes Status: Chronic Qualifiers: Peripheral neuropathy type: polyneuropathy, unspecified Qualified Code(s): G62.9 - Polyneuropathy, unspecified Plan to address problem: Continue Lyrica (11) Seizure disorder Current Visit: Yes Status: Chronic Plan to address problem: Continue Lamictal No seizures noted this time. Neurology recs appreciated. EEG pending Morbid obesity Rule out JANI Outpatient follow-up with pulmonary for sleep study (12) DVT prophylaxis Current Visit: No Status: Acute Narrative exam: VITAL SIGNS: Reviewed. GENERAL: Alert, moderately obese HEAD: No signs of head trauma. EYES: Pupils are equal. Extraocular motions intact. MOUTH: Oropharynx is normal. NECK: No adenopathy, no JVD. CHEST: Bilateral coarse breath sounds. No wheezes, rales, or rhonchi. CARDIAC: Regular rate and rhythm ABDOMEN: Soft, non tender MUSCULOSKELETAL: Bilateral leg edema and right foot covered with dressing NEUROLOGIC EXAM: Patient is alert and oriented SKIN: No obvious lesions, discoloration of skin across the lower abdomen Objective - Constitutional Vitals: Vital Signs - 12hr 04/23/20 04/23/20 04/23/20 03:19 05:00 05:25 Temperature 98.1 F Pulse Rate 69 76 Respiratory 28 H 24 Rate Blood Pressure 124/58 Blood Pressure [Left] O2 Sat by Pulse 100 100 99 Oximetry 04/23/20 07:56 Temperature 98.7 F Pulse Rate 88 Respiratory 18 Rate Blood Pressure Blood Pressure 144/67 [Left] O2 Sat by Pulse 100 Oximetry - Labs CBC & Chem 7: 04/23/20 06:07 04/23/20 06:07 Labs: Abnormal lab results 04/22/20 04/22/20 04/23/20 Range/Units 17:43 18:20 01:16 WBC (4.5-11.0) K/mm3 Hgb (10.1-14.3) gm/dl MCV (79-97) fl MCH (28-32) pg RDW (13.2-15.2) % [place] % (Auto) (0.0-7.3) % [place] # (Auto) (0.0-0.8) K/mm3 Seg Neutrophils % (40.0-70.0) % Seg Neutrophils # (1.8-7.7) K/mm3 Sodium 148 H (137-145) mmol/L Potassium (3.6-5.0) mmol/L Chloride 117.3 H (98-107) mmol/L Carbon Dioxide 20 L (22-30) mmol/L BUN 25 H (7-17) mg/dL Glucose 229 H (65-100) mg/dL POC Glucose 199 H 145 H (70-105) mg/dL Magnesium 1.60 L (1.7-2.3) mg/dL Albumin (3.9-5) g/dL 04/23/20 04/23/20 04/23/20 Range/Units 06:07 06:07 07:57 WBC 12.9 H (4.5-11.0) K/mm3 Hgb 9.7 L (10.1-14.3) gm/dl MCV 76 L (79-97) fl MCH 23 L (28-32) pg RDW 16.4 H (13.2-15.2) % [place] % (Auto) 9.6 H (0.0-7.3) % [place] # (Auto) 1.2 H (0.0-0.8) K/mm3 Seg Neutrophils % 73.5 H (40.0-70.0) % Seg Neutrophils # 9.4 H (1.8-7.7) K/mm3 Sodium 148 H (137-145) mmol/L Potassium 3.5 L (3.6-5.0) mmol/L Chloride 116.8 H (98-107) mmol/L Carbon Dioxide 20 L (22-30) mmol/L BUN 24 H (7-17) mg/dL Glucose 188 H (65-100) mg/dL POC Glucose 145 H (70-105) mg/dL Magnesium (1.7-2.3) mg/dL Albumin 3.2 L (3.9-5) g/dL 04/23/20 Range/Units 12:04 WBC (4.5-11.0) K/mm3 Hgb (10.1-14.3) gm/dl MCV (79-97) fl MCH (28-32) pg RDW (13.2-15.2) % [place] % (Auto) (0.0-7.3) % [place] # (Auto) (0.0-0.8) K/mm3 Seg Neutrophils % (40.0-70.0) % Seg Neutrophils # (1.8-7.7) K/mm3 Sodium (137-145) mmol/L Potassium (3.6-5.0) mmol/L Chloride (98-107) mmol/L Carbon Dioxide (22-30) mmol/L BUN (7-17) mg/dL Glucose (65-100) mg/dL POC Glucose 155 H (70-105) mg/dL Magnesium (1.7-2.3) mg/dL Albumin (3.9-5) g/dL HEART Score - HEART Score Age: 45-65 Risk factors: > 3 risk factors or hx of atherosclerotic disease Troponin: Troponin T < 0.010 ng/mL (0.00-0.029) 04/17/20 18:37 Troponin: 1-3x normal limit - Critical Actions Critical Actions: 4-6 pts:12-16.6% risk of adverse cardiac event. Should be admitted
--- NOTE | 2020-04-23 15:13 | Progress Note ---
Assessment and Plan Patient admitted with altered mental status, infected diabetic ulcer, possible abdominal cellulitis, sepsis, morbid obesity and respiratory failure. Cardiac status was notable for transient inferior injury pattern, resolved on subsequent ECGs. Due to multiple severe comorbidities, patient is not a candidate for aggressive invasive cardiac therapies, underlying coronary artery disease recommended for medical management. Prognosis is poor in the setting of multiple severe acute comorbidities. Subjective Date of service: 04/23/20 Principal diagnosis: Elevated cardiac enzymes Interval history: Patient is lethargic and sleepy, no acute distress. Objective Vital Signs Temp Pulse Resp BP BP Pulse Ox 04/23/20 07:56 98.7 F 88 18 144/67 100 04/23/20 05:25 98.1 F 76 24 124/58 99 04/23/20 05:00 100 04/23/20 03:19 69 28 H 100 04/23/20 00:12 97.6 F 68 28 H 107/51 100 04/22/20 23:10 131/65 100 04/22/20 23:00 139/69 100 04/22/20 22:51 73 23 131/65 100 04/22/20 22:41 75 22 131/65 100 04/22/20 22:31 75 30 H 131/65 100 04/22/20 22:30 72 29 H 128/63 100 04/22/20 22:26 73 29 H 128/63 100 04/22/20 22:00 72 30 H 128/63 100 04/22/20 21:47 70 129/63 04/22/20 21:31 74 28 H 129/63 100 04/22/20 21:07 100 04/22/20 21:04 74 28 H 134/74 100 04/22/20 21:00 77 34 H 134/74 100 04/22/20 20:31 74 23 125/66 100 04/22/20 20:01 76 30 H 134/65 100 04/22/20 20:00 73 04/22/20 19:52 98.1 F 04/22/20 19:30 77 32 H 130/65 100 04/22/20 19:00 74 30 H 129/69 100 04/22/20 18:31 76 35 H 128/62 100 04/22/20 18:01 74 34 H 130/65 100 04/22/20 17:31 72 31 H 124/55 100 04/22/20 17:01 73 28 H 131/56 100 04/22/20 16:30 71 31 H 119/61 100 04/22/20 16:01 69 32 H 122/59 100 04/22/20 16:00 73 04/22/20 15:31 71 34 H 127/56 100 - Physical Examination General: No Apparent Distress, Other (Patient is somnolent) HEENT: Positive: Normocephaly Neck: Positive: neck supple, Other (No significant abnormality noted) Cardiac: Positive: Reg Rate and Rhythm Lungs: Positive: Decreased Breath Sounds Neuro: Positive: Grossly Intact, Other (Patient somnolent unable to evaluate. However moves all 4 extremities) Abdomen: Positive: Unremarkable Skin: Positive: Clear Extremities: Absent: edema - Labs and Meds Cardiac Enzymes 04/23/20 Range/Units 06:07 AST 15 (5-40) units/L CBC 04/23/20 Range/Units 06:07 WBC 12.9 H (4.5-11.0) K/mm3 RBC 4.16 (3.65-5.03) M/mm3 Hgb 9.7 L (10.1-14.3) gm/dl Hct 31.5 (30.3-42.9) % Plt Count 349 (140-440) K/mm3 Lymph # (Auto) 1.9 (1.2-5.4) K/mm3 [place] # (Auto) 1.2 H (0.0-0.8) K/mm3 Eos # (Auto) 0.2 (0.0-0.4) K/mm3 Baso # (Auto) 0.1 (0.0-0.1) K/mm3 Comprehensive Metabolic Panel 04/22/20 04/23/20 Range/Units 18:20 06:07 Sodium 148 H 148 H (137-145) mmol/L Potassium 3.7 D 3.5 L (3.6-5.0) mmol/L Chloride 117.3 H 116.8 H (98-107) mmol/L Carbon Dioxide 20 L 20 L (22-30) mmol/L BUN 25 H 24 H (7-17) mg/dL Creatinine 1.2 1.2 (0.6-1.2) mg/dL Glucose 229 H 188 H (65-100) mg/dL Calcium 9.0 9.2 (8.4-10.2) mg/dL AST 15 (5-40) units/L ALT 24 (7-56) units/L Alkaline Phosphatase 125 (35-129) units/L Total Protein 7.1 (6.3-8.2) g/dL Albumin 3.2 L (3.9-5) g/dL - Imaging and Cardiology EKG: report reviewed
[2020-04-23] MEDS ORDERED: POTASSIUM CHLORIDE ER 20 MEQ TAB PO ONE (19:04)
[2020-04-23] MEDS: INSULIN GLARGINE 100 UNITS/ML SUB-Q SCH (21:50)
[2020-04-23] MEDS ORDERED: POTASSIUM CHLORIDE 20 MEQ PACKET FEEDTUBE SCH (22:00)
[2020-04-23] MEDS ORDERED: VANCOMYCIN/NS 1 GM/250 ML 1 GM/250 ML BAG IV SCH (23:00)
[2020-04-24] MEDS: INSULIN LISPRO 100 UNIT/ML VIAL 3 mL SUB-Q SCH ×4 (00:30→17:12)
[2020-04-24] MEDS: LEVOTHYROXINE 50 MCG TAB PO SCH (05:59)
[2020-04-24] MEDS: NITROGLYCERIN 0.2 MG PATCH 24HR TD SCH (06:06)
[2020-04-24 08:16] LABS: Mean Corpuscular HGB Conc 29 % (30-34); Mean Corpuscular Volume 78 fl (79-97); Platelet Count 357 K/mm3 (140-440); Red Blood Count 4.44 M/mm3 (3.65-5.03); Red Cell Distribution Width 16.8 % (13.2-15.2)
[2020-04-24 08:17] LABS: Hematocrit 34.8 % (30.3-42.9); Hemoglobin 10.1 gm/dl (10.1-14.3)
[2020-04-24 08:35] LABS: Alanine Aminotransferase 19 units/L (7-56); BUN/Creatinine Ratio 17; Blood Urea Nitrogen 19 mg/dL (7-17); Calcium 9.4 mg/dL (8.4-10.2); Hemolysis Index 8
[2020-04-24 09:32] LABS: Anisocytosis 1+; Band Neutrophils # (Manual) 0.1 K/mm3; Hypochromasia 1+; Total Cells Counted 100
[2020-04-24 09:33] LABS: Platelet Estimate Consistent w Auto
--- NOTE | 2020-04-24 10:19 | Progress Note ---
Assessment and Plan Patient admitted with altered mental status, infected diabetic ulcer, possible abdominal cellulitis, sepsis, morbid obesity and respiratory failure. Cardiac status was notable for transient inferior injury pattern, resolved on subsequent ECGs. Due to multiple severe comorbidities, patient is not a candidate for aggressive invasive cardiac therapies, underlying coronary artery disease recommended for medical management. Prognosis is poor in the setting of multiple severe acute comorbidities. Subjective Date of service: 04/24/20 Principal diagnosis: Elevated cardiac enzymes Interval history: Patient is lethargic and sleepy, no acute distress. Objective Vital Signs Temp Pulse Resp BP Pulse Ox 04/24/20 08:42 98.3 F 81 20 134/69 95 04/24/20 05:12 98.0 F 76 20 115/57 98 04/24/20 04:42 97 04/24/20 00:36 98.4 F 77 28 H 115/64 98 04/23/20 20:27 66 04/23/20 19:36 98.6 F 66 19 114/59 99 - Physical Examination General: No Apparent Distress, Other (Patient is somnolent) HEENT: Positive: Normocephaly Neck: Positive: neck supple, Other (No significant abnormality noted) Cardiac: Positive: Reg Rate and Rhythm Lungs: Positive: Decreased Breath Sounds Neuro: Positive: Grossly Intact, Other (Patient somnolent unable to evaluate. However moves all 4 extremities) Abdomen: Positive: Unremarkable Skin: Positive: Clear Extremities: Absent: edema - Labs and Meds Cardiac Enzymes 04/24/20 Range/Units 07:41 AST 13 (5-40) units/L CBC 04/24/20 Range/Units 07:41 WBC 10.3 (4.5-11.0) K/mm3 RBC 4.44 (3.65-5.03) M/mm3 Hgb 10.1 (10.1-14.3) gm/dl Hct 34.8 (30.3-42.9) % Plt Count 357 (140-440) K/mm3 Comprehensive Metabolic Panel 04/24/20 Range/Units 07:41 Sodium 149 H (137-145) mmol/L Potassium 3.9 (3.6-5.0) mmol/L Chloride 119.0 H (98-107) mmol/L Carbon Dioxide 19 L (22-30) mmol/L BUN 19 H (7-17) mg/dL Creatinine 1.1 (0.6-1.2) mg/dL Glucose 172 H (65-100) mg/dL Calcium 9.4 (8.4-10.2) mg/dL AST 13 (5-40) units/L ALT 19 (7-56) units/L Alkaline Phosphatase 135 H (35-129) units/L Total Protein 7.0 (6.3-8.2) g/dL Albumin 3.0 L (3.9-5) g/dL - Imaging and Cardiology EKG: report reviewed
[2020-04-24] MEDS: CHOLECALCIFEROL (VIT D3) 1000 UNIT (25 mcg) TAB PO SCH (10:41)
[2020-04-24] MEDS: HEPARIN 5,000 UNIT/1 ML VIAL SUB-Q SCH ×2 (10:41→22:06)
[2020-04-24] MEDS: HYDROCORTISONE 10 MG TAB PO SCH ×2 (10:41→22:08)
[2020-04-24] MEDS: AMIODARONE 200 MG TAB PO SCH ×2 (10:41→22:07)
[2020-04-24] MEDS: ASPIRIN 81 MG TAB CHEW PO SCH (10:41)
[2020-04-24] MEDS: CLOPIDOGREL 75 MG TAB PO SCH (10:41)
[2020-04-24] MEDS: lamoTRIgine 25 MG TAB PO SCH ×2 (10:41→22:07)
[2020-04-24] MEDS: PREGABALIN 75 MG CAP PO SCH ×2 (10:41→22:06)
[2020-04-24] MEDS: cefTRIAXone/NS 2 GM/100 ML 2 GM/100 ML BAG IV SCH (10:42)
[2020-04-24] MEDS: METOPROLOL TARTRATE 50 MG TAB PO SCH ×3 (10:43→22:06)
[2020-04-24] MEDS: PANTOPRAZOLE 40 MG TAB PO SCH ×2 (10:43→17:12)
--- NOTE | 2020-04-24 12:03 | Progress Note ---
Assessment and Plan 54 y/o female obese with prior history of sarcoid now with altered mental state and intubated at recommendation of neurology secondary to GCS 1. Pulm-Wean FiO2 to off for sats >88%. Continue bipap QHS and PRN, patient has known JANI but readily admits to noncompliance 2. Neuro-Follow up neuro 3. ID continues to follow. Do not see where LP has been done 4. Guarded prognosis. Will see pRN. Subjective Date of service: 04/24/20 Principal diagnosis: Elevated cardiac enzymes Interval history: No acute events. Wore bipap therapy last night. sats stable on 2 liters. Objective Vital Signs - 12hr 04/24/20 04/24/20 04/24/20 00:36 04:42 05:12 Temperature 98.4 F 98.0 F Pulse Rate 77 76 Respiratory 28 H 20 Rate Blood Pressure 115/64 115/57 O2 Sat by Pulse 98 97 98 Oximetry 04/24/20 08:42 Temperature 98.3 F Pulse Rate 81 Respiratory 20 Rate Blood Pressure 134/69 O2 Sat by Pulse 95 Oximetry Constitutional: no acute distress, alert, other (morbidly obese) Eyes: non-icteric ENT: other (orally intubated, not on sedation.) Neck: supple, other (large in circumference) Effort: normal Ascultation: Bilateral: clear Percussion: Bilateral: not dull Cardiovascular: regular rate and rhythm Gastrointestinal: normoactive bowel sounds, soft, other (obese) Extremities: other (right foot rapped, poor skin integrity on left) CBC and BMP: 04/24/20 07:41 04/24/20 07:41 ABG, PT/INR, D-dimer: ABG ABG pH 7.390 pH Units (7.350-7.450) 04/22/20 04:40 POC ABG pCO2 37.8 mmHg (32.0-48.0) 04/21/20 03:45 ABG pCO2 32.4 mm Hg 04/22/20 04:40 POC ABG pO2 145.5 mmHg (83-108) H 04/21/20 03:45 ABG pO2 85.3 mm Hg (80.0-90.0) 04/22/20 04:40 POC ABG HCO3 20.1 04/21/20 03:45 ABG O2 Saturation 96.9 % (95.0-99.0) 04/22/20 04:40 PT/INR, D-dimer PT 14.3 Sec. (12.2-14.9) 04/21/20 09:00 INR 1.12 (0.87-1.13) 04/21/20 09:00 D-Dimer 1201.23 ng/mlDDU (0-234) H 04/17/20 10:38 Abnormal lab findings: Abnormal Labs 04/16/20 04/16/20 04/16/20 19:29 19:29 19:31 WBC Hgb Hct MCV MCH MCHC RDW Plt Count Lymph % (Auto) Schley % (Auto) Schley # (Auto) Baso # (Auto) Seg Neutrophils % Seg Neuts % (Manual) Lymphocytes % (Manual) Monocytes % (Manual) Nucleated RBC % Seg Neutrophils # Seg Neutrophils # Man Lymphocytes # (Manual) Monocytes # (Manual) PT 19.5 H INR 1.64 H APTT 43.3 H D-Dimer ABG pH POC ABG pO2 ABG HCO3 ABG Base Excess ABG Hemoglobin ABG Sodium ABG Potassium ABG Chloride ABG Glucose Oxyhemoglobin Sodium Potassium 5.3 H Chloride Carbon Dioxide 20 L BUN 49 H Creatinine 1.7 H Glucose 295 H POC Glucose 243 H Hemoglobin A1c Calcium Magnesium Ferritin ALT Alkaline Phosphatase Lactate Dehydrogenase Total Creatine Kinase Troponin T 0.067 H C-Reactive Protein Albumin Triglycerides 171 H Cholesterol 212 H LDL Cholesterol Direct 147 H HDL Cholesterol 35 L Arterial Blood Glucose Urine WBC (Auto) Urine Creatinine Vancomycin Trough Random Vancomycin 04/16/20 04/16/20 04/17/20 19:45 20:37 08:43 WBC 20.6 H Hgb Hct MCV 75 L MCH 24 L MCHC RDW 15.6 H Plt Count 470 H Lymph % (Auto) Schley % (Auto) Schley # (Auto) Baso # (Auto) Seg Neutrophils % Seg Neuts % (Manual) 71.0 H Lymphocytes % (Manual) Monocytes % (Manual) 10.0 H Nucleated RBC % Seg Neutrophils # Seg Neutrophils # Man 14.6 H Lymphocytes # (Manual) Monocytes # (Manual) 2.1 H PT INR APTT D-Dimer ABG pH POC ABG pO2 ABG HCO3 ABG Base Excess ABG Hemoglobin ABG Sodium ABG Potassium ABG Chloride ABG Glucose Oxyhemoglobin Sodium Potassium Chloride Carbon Dioxide BUN Creatinine Glucose POC Glucose 147 H Hemoglobin A1c Calcium Magnesium 2.70 H Ferritin ALT Alkaline Phosphatase Lactate Dehydrogenase Total Creatine Kinase 303 H Troponin T C-Reactive Protein Albumin Triglycerides Cholesterol LDL Cholesterol Direct HDL Cholesterol Arterial Blood Glucose Urine WBC (Auto) Urine Creatinine Vancomycin Trough Random Vancomycin 04/17/20 04/17/20 04/17/20 10:38 10:38 10:38 WBC Hgb Hct MCV MCH MCHC RDW Plt Count Lymph % (Auto) Schley % (Auto) Schley # (Auto) Baso # (Auto) Seg Neutrophils % Seg Neuts % (Manual) Lymphocytes % (Manual) Monocytes % (Manual) Nucleated RBC % Seg Neutrophils # Seg Neutrophils # Man Lymphocytes # (Manual) Monocytes # (Manual) PT INR APTT D-Dimer 1201.23 H ABG pH POC ABG pO2 ABG HCO3 ABG Base Excess ABG Hemoglobin ABG Sodium ABG Potassium ABG Chloride ABG Glucose Oxyhemoglobin Sodium Potassium Chloride Carbon Dioxide BUN Creatinine Glucose 172 H POC Glucose Hemoglobin A1c Calcium Magnesium Ferritin 67137.0 H ALT Alkaline Phosphatase Lactate Dehydrogenase 246 H Total Creatine Kinase Troponin T C-Reactive Protein 13.90 H Albumin Triglycerides Cholesterol LDL Cholesterol Direct HDL Cholesterol Arterial Blood Glucose Urine WBC (Auto) Urine Creatinine Vancomycin Trough Random Vancomycin 04/17/20 04/17/20 04/17/20 10:38 10:38 11:50 WBC 18.0 H Hgb Hct MCV 75 L MCH 23 L MCHC RDW 15.9 H Plt Count Lymph % (Auto) Schley % (Auto) Schley # (Auto) Baso # (Auto) Seg Neutrophils % Seg Neuts % (Manual) 83.0 H Lymphocytes % (Manual) 11.0 L Monocytes % (Manual) Nucleated RBC % 1.0 H Seg Neutrophils # Seg Neutrophils # Man 14.9 H Lymphocytes # (Manual) Monocytes # (Manual) 0.9 H PT INR APTT D-Dimer ABG pH POC ABG pO2 ABG HCO3 ABG Base Excess ABG Hemoglobin ABG Sodium ABG Potassium ABG Chloride ABG Glucose Oxyhemoglobin Sodium Potassium 5.2 H Chloride 107.3 H Carbon Dioxide 21 L BUN 44 H Creatinine Glucose 167 H POC Glucose 146 H Hemoglobin A1c Calcium 10.3 H Magnesium Ferritin ALT Alkaline Phosphatase Lactate Dehydrogenase Total Creatine Kinase Troponin T C-Reactive Protein Albumin Triglycerides Cholesterol LDL Cholesterol Direct HDL Cholesterol Arterial Blood Glucose Urine WBC (Auto) Urine Creatinine Vancomycin Trough Random Vancomycin 04/17/20 04/17/20 04/18/20 17:10 20:41 05:23 WBC Hgb Hct MCV MCH MCHC RDW Plt Count Lymph % (Auto) Schley % (Auto) Schley # (Auto) Baso # (Auto) Seg Neutrophils % Seg Neuts % (Manual) Lymphocytes % (Manual) Monocytes % (Manual) Nucleated RBC % Seg Neutrophils # Seg Neutrophils # Man Lymphocytes # (Manual) Monocytes # (Manual) PT INR APTT D-Dimer ABG pH POC ABG pO2 ABG HCO3 ABG Base Excess ABG Hemoglobin ABG Sodium ABG Potassium ABG Chloride ABG Glucose Oxyhemoglobin Sodium Potassium Chloride Carbon Dioxide BUN Creatinine Glucose POC Glucose 165 H 212 H Hemoglobin A1c 7.6 H Calcium Magnesium Ferritin ALT Alkaline Phosphatase Lactate Dehydrogenase Total Creatine Kinase Troponin T C-Reactive Protein Albumin Triglycerides Cholesterol LDL Cholesterol Direct HDL Cholesterol Arterial Blood Glucose Urine WBC (Auto) Urine Creatinine Vancomycin Trough Random Vancomycin 04/18/20 04/18/20 04/18/20 05:23 05:23 07:33 WBC 16.6 H Hgb Hct MCV 76 L MCH 24 L MCHC RDW 15.9 H Plt Count Lymph % (Auto) 9.8 L Schley % (Auto) 12.9 H Schley # (Auto) 2.1 H Baso # (Auto) Seg Neutrophils % 75.7 H Seg Neuts % (Manual) Lymphocytes % (Manual) Monocytes % (Manual) Nucleated RBC % Seg Neutrophils # 12.6 H Seg Neutrophils # Man Lymphocytes # (Manual) Monocytes # (Manual) PT INR APTT D-Dimer ABG pH POC ABG pO2 ABG HCO3 ABG Base Excess ABG Hemoglobin ABG Sodium ABG Potassium ABG Chloride ABG Glucose Oxyhemoglobin Sodium 148 H Potassium 5.5 H Chloride 114.3 H Carbon Dioxide 19 L BUN 31 H Creatinine Glucose 201 H POC Glucose 178 H Hemoglobin A1c Calcium Magnesium Ferritin ALT Alkaline Phosphatase Lactate Dehydrogenase Total Creatine Kinase Troponin T C-Reactive Protein Albumin Triglycerides Cholesterol LDL Cholesterol Direct HDL Cholesterol Arterial Blood Glucose Urine WBC (Auto) Urine Creatinine Vancomycin Trough Random Vancomycin 04/18/20 04/18/20 04/18/20 11:38 16:07 20:44 WBC Hgb Hct MCV MCH MCHC RDW Plt Count Lymph % (Auto) Schley % (Auto) Schley # (Auto) Baso # (Auto) Seg Neutrophils % Seg Neuts % (Manual) Lymphocytes % (Manual) Monocytes % (Manual) Nucleated RBC % Seg Neutrophils # Seg Neutrophils # Man Lymphocytes # (Manual) Monocytes # (Manual) PT INR APTT D-Dimer ABG pH POC ABG pO2 ABG HCO3 ABG Base Excess ABG Hemoglobin ABG Sodium ABG Potassium ABG Chloride ABG Glucose Oxyhemoglobin Sodium Potassium Chloride Carbon Dioxide BUN Creatinine Glucose POC Glucose 187 H 248 H 243 H Hemoglobin A1c Calcium Magnesium Ferritin ALT Alkaline Phosphatase Lactate Dehydrogenase Total Creatine Kinase Troponin T C-Reactive Protein Albumin Triglycerides Cholesterol LDL Cholesterol Direct HDL Cholesterol Arterial Blood Glucose Urine WBC (Auto) Urine Creatinine Vancomycin Trough Random Vancomycin 04/19/20 04/19/20 04/19/20 04:55 07:40 12:01 WBC Hgb Hct MCV MCH MCHC RDW Plt Count Lymph % (Auto) Schley % (Auto) Schley # (Auto) Baso # (Auto) Seg Neutrophils % Seg Neuts % (Manual) Lymphocytes % (Manual) Monocytes % (Manual) Nucleated RBC % Seg Neutrophils # Seg Neutrophils # Man Lymphocytes # (Manual) Monocytes # (Manual) PT INR APTT D-Dimer ABG pH POC ABG pO2 ABG HCO3 ABG Base Excess ABG Hemoglobin ABG Sodium ABG Potassium ABG Chloride ABG Glucose Oxyhemoglobin Sodium 152 H Potassium Chloride 117.2 H Carbon Dioxide BUN 27 H Creatinine Glucose 325 H POC Glucose 258 H 251 H Hemoglobin A1c Calcium Magnesium Ferritin ALT Alkaline Phosphatase Lactate Dehydrogenase Total Creatine Kinase Troponin T C-Reactive Protein Albumin Triglycerides Cholesterol LDL Cholesterol Direct HDL Cholesterol Arterial Blood Glucose Urine WBC (Auto) Urine Creatinine Vancomycin Trough Random Vancomycin 04/19/20 04/19/20 04/20/20 16:19 21:41 05:19 WBC 14.8 H Hgb Hct MCV 77 L MCH 23 L MCHC RDW 16.5 H Plt Count Lymph % (Auto) Schley % (Auto) 13.6 H Schley # (Auto) 2.0 H Baso # (Auto) 0.2 H Seg Neutrophils % Seg Neuts % (Manual) Lymphocytes % (Manual) Monocytes % (Manual) Nucleated RBC % Seg Neutrophils # 10.2 H Seg Neutrophils # Man Lymphocytes # (Manual) Monocytes # (Manual) PT INR APTT D-Dimer ABG pH POC ABG pO2 ABG HCO3 ABG Base Excess ABG Hemoglobin ABG Sodium ABG Potassium ABG Chloride ABG Glucose Oxyhemoglobin Sodium Potassium Chloride Carbon Dioxide BUN Creatinine Glucose POC Glucose 263 H 276 H Hemoglobin A1c Calcium Magnesium Ferritin ALT Alkaline Phosphatase Lactate Dehydrogenase Total Creatine Kinase Troponin T C-Reactive Protein Albumin Triglycerides Cholesterol LDL Cholesterol Direct HDL Cholesterol Arterial Blood Glucose Urine WBC (Auto) Urine Creatinine Vancomycin Trough Random Vancomycin 04/20/20 04/20/20 04/20/20 05:19 07:22 10:17 WBC Hgb Hct MCV MCH MCHC RDW Plt Count Lymph % (Auto) Schley % (Auto) Schley # (Auto) Baso # (Auto) Seg Neutrophils % Seg Neuts % (Manual) Lymphocytes % (Manual) Monocytes % (Manual) Nucleated RBC % Seg Neutrophils # Seg Neutrophils # Man Lymphocytes # (Manual) Monocytes # (Manual) PT INR APTT D-Dimer ABG pH POC ABG pO2 ABG HCO3 ABG Base Excess ABG Hemoglobin ABG Sodium ABG Potassium ABG Chloride ABG Glucose Oxyhemoglobin Sodium 154 H Potassium Chloride 119.6 H Carbon Dioxide BUN 24 H Creatinine Glucose 298 H POC Glucose 227 H Hemoglobin A1c Calcium Magnesium Ferritin ALT 58 H Alkaline Phosphatase 150 H Lactate Dehydrogenase Total Creatine Kinase Troponin T C-Reactive Protein Albumin 3.3 L Triglycerides Cholesterol LDL Cholesterol Direct HDL Cholesterol Arterial Blood Glucose Urine WBC (Auto) Urine Creatinine Vancomycin Trough 56.2 H Random Vancomycin 04/20/20 04/20/20 04/20/20 10:57 16:05 16:15 WBC Hgb Hct MCV MCH MCHC RDW Plt Count Lymph % (Auto) Schley % (Auto) Schley # (Auto) Baso # (Auto) Seg Neutrophils % Seg Neuts % (Manual) Lymphocytes % (Manual) Monocytes % (Manual) Nucleated RBC % Seg Neutrophils # Seg Neutrophils # Man Lymphocytes # (Manual) Monocytes # (Manual) PT INR APTT D-Dimer ABG pH POC ABG pO2 ABG HCO3 ABG Base Excess ABG Hemoglobin ABG Sodium ABG Potassium ABG Chloride ABG Glucose Oxyhemoglobin Sodium 156 H Potassium Chloride 122.0 H Carbon Dioxide BUN 26 H Creatinine 1.4 H D Glucose 226 H POC Glucose 222 H 183 H Hemoglobin A1c Calcium Magnesium Ferritin ALT Alkaline Phosphatase Lactate Dehydrogenase Total Creatine Kinase Troponin T C-Reactive Protein Albumin Triglycerides Cholesterol LDL Cholesterol Direct HDL Cholesterol Arterial Blood Glucose Urine WBC (Auto) Urine Creatinine Vancomycin Trough Random Vancomycin 04/20/20 04/21/20 04/21/20 18:17 03:45 05:24 WBC 14.9 H Hgb 9.7 L Hct MCV 76 L MCH 22 L MCHC 29 L RDW 16.6 H Plt Count 462 H Lymph % (Auto) Schley % (Auto) Schley # (Auto) Baso # (Auto) Seg Neutrophils % Seg Neuts % (Manual) 71.0 H Lymphocytes % (Manual) Monocytes % (Manual) 12.0 H Nucleated RBC % Seg Neutrophils # Seg Neutrophils # Man 10.6 H Lymphocytes # (Manual) Monocytes # (Manual) 1.8 H PT INR APTT D-Dimer ABG pH 7.286 L POC ABG pO2 137.2 H 145.5 H ABG HCO3 ABG Base Excess ABG Hemoglobin 11.1 L 10.6 L ABG Sodium 153.2 H 153.1 H ABG Potassium 3.2 L ABG Chloride 121.0 H 120.0 H ABG Glucose 256 H 223 H Oxyhemoglobin Sodium Potassium Chloride Carbon Dioxide BUN Creatinine Glucose POC Glucose Hemoglobin A1c Calcium Magnesium Ferritin ALT Alkaline Phosphatase Lactate Dehydrogenase Total Creatine Kinase Troponin T C-Reactive Protein Albumin Triglycerides Cholesterol LDL Cholesterol Direct HDL Cholesterol Arterial Blood Glucose 256 H 223 H Urine WBC (Auto) Urine Creatinine Vancomycin Trough Random Vancomycin 04/21/20 04/21/20 04/21/20 05:24 09:00 12:14 WBC Hgb Hct MCV MCH MCHC RDW Plt Count Lymph % (Auto) Schley % (Auto) Schley # (Auto) Baso # (Auto) Seg Neutrophils % Seg Neuts % (Manual) Lymphocytes % (Manual) Monocytes % (Manual) Nucleated RBC % Seg Neutrophils # Seg Neutrophils # Man Lymphocytes # (Manual) Monocytes # (Manual) PT INR APTT D-Dimer ABG pH POC ABG pO2 ABG HCO3 ABG Base Excess ABG Hemoglobin ABG Sodium ABG Potassium ABG Chloride ABG Glucose Oxyhemoglobin Sodium 154 H Potassium 3.4 L Chloride 121.3 H Carbon Dioxide 19 L D BUN 28 H Creatinine 1.3 H Glucose 230 H POC Glucose 197 H Hemoglobin A1c Calcium Magnesium Ferritin ALT Alkaline Phosphatase 136 H Lactate Dehydrogenase Total Creatine Kinase Troponin T C-Reactive Protein Albumin 3.2 L Triglycerides Cholesterol LDL Cholesterol Direct HDL Cholesterol Arterial Blood Glucose Urine WBC (Auto) Urine Creatinine Vancomycin Trough Random Vancomycin 41.4 H 04/21/20 04/21/20 04/21/20 16:54 18:12 23:09 WBC Hgb Hct MCV MCH MCHC RDW Plt Count Lymph % (Auto) Schley % (Auto) Schley # (Auto) Baso # (Auto) Seg Neutrophils % Seg Neuts % (Manual) Lymphocytes % (Manual) Monocytes % (Manual) Nucleated RBC % Seg Neutrophils # Seg Neutrophils # Man Lymphocytes # (Manual) Monocytes # (Manual) PT INR APTT D-Dimer ABG pH POC ABG pO2 ABG HCO3 ABG Base Excess ABG Hemoglobin ABG Sodium ABG Potassium ABG Chloride ABG Glucose Oxyhemoglobin Sodium 151 H Potassium 3.1 L Chloride 118.7 H Carbon Dioxide 20 L BUN 30 H Creatinine 1.3 H Glucose 243 H POC Glucose 195 H 179 H Hemoglobin A1c Calcium Magnesium Ferritin ALT Alkaline Phosphatase Lactate Dehydrogenase Total Creatine Kinase Troponin T C-Reactive Protein Albumin Triglycerides Cholesterol LDL Cholesterol Direct HDL Cholesterol Arterial Blood Glucose Urine WBC (Auto) Urine Creatinine Vancomycin Trough Random Vancomycin 04/21/20 04/21/20 04/22/20 Unknown Unknown 04:40 WBC Hgb Hct MCV MCH MCHC RDW Plt Count Lymph % (Auto) Schley % (Auto) Schley # (Auto) Baso # (Auto) Seg Neutrophils % Seg Neuts % (Manual) Lymphocytes % (Manual) Monocytes % (Manual) Nucleated RBC % Seg Neutrophils # Seg Neutrophils # Man Lymphocytes # (Manual) Monocytes # (Manual) PT INR APTT D-Dimer ABG pH POC ABG pO2 ABG HCO3 19.2 L ABG Base Excess -5.0 L ABG Hemoglobin 10.0 L ABG Sodium ABG Potassium ABG Chloride ABG Glucose Oxyhemoglobin 94.8 L Sodium Potassium Chloride Carbon Dioxide BUN Creatinine Glucose POC Glucose Hemoglobin A1c Calcium Magnesium Ferritin ALT Alkaline Phosphatase Lactate Dehydrogenase Total Creatine Kinase Troponin T C-Reactive Protein Albumin Triglycerides Cholesterol LDL Cholesterol Direct HDL Cholesterol Arterial Blood Glucose Urine WBC (Auto) 21.0 H Urine Creatinine 190.1 H Vancomycin Trough Random Vancomycin 04/22/20 04/22/20 04/22/20 04:54 04:54 05:30 WBC 13.0 H Hgb 9.1 L Hct 29.9 L MCV 75 L MCH 23 L MCHC RDW 16.1 H Plt Count Lymph % (Auto) 12.6 L Schley % (Auto) 9.0 H Schley # (Auto) 1.2 H Baso # (Auto) Seg Neutrophils % 76.0 H Seg Neuts % (Manual) Lymphocytes % (Manual) Monocytes % (Manual) Nucleated RBC % Seg Neutrophils # 9.9 H Seg Neutrophils # Man Lymphocytes # (Manual) Monocytes # (Manual) PT INR APTT D-Dimer ABG pH POC ABG pO2 ABG HCO3 ABG Base Excess ABG Hemoglobin ABG Sodium ABG Potassium ABG Chloride ABG Glucose Oxyhemoglobin Sodium 151 H Potassium 2.8 L* Chloride 118.7 H Carbon Dioxide 21 L BUN 28 H Creatinine 1.3 H Glucose 227 H POC Glucose 182 H Hemoglobin A1c Calcium Magnesium Ferritin ALT Alkaline Phosphatase Lactate Dehydrogenase Total Creatine Kinase Troponin T C-Reactive Protein Albumin 3.2 L Triglycerides Cholesterol LDL Cholesterol Direct HDL Cholesterol Arterial Blood Glucose Urine WBC (Auto) Urine Creatinine Vancomycin Trough Random Vancomycin 04/22/20 04/22/20 04/22/20 11:37 17:43 18:20 WBC Hgb Hct MCV MCH MCHC RDW Plt Count Lymph % (Auto) Schley % (Auto) Schley # (Auto) Baso # (Auto) Seg Neutrophils % Seg Neuts % (Manual) Lymphocytes % (Manual) Monocytes % (Manual) Nucleated RBC % Seg Neutrophils # Seg Neutrophils # Man Lymphocytes # (Manual) Monocytes # (Manual) PT INR APTT D-Dimer ABG pH POC ABG pO2 ABG HCO3 ABG Base Excess ABG Hemoglobin ABG Sodium ABG Potassium ABG Chloride ABG Glucose Oxyhemoglobin Sodium 148 H Potassium Chloride 117.3 H Carbon Dioxide 20 L BUN 25 H Creatinine Glucose 229 H POC Glucose 200 H 199 H Hemoglobin A1c Calcium Magnesium 1.60 L Ferritin ALT Alkaline Phosphatase Lactate Dehydrogenase Total Creatine Kinase Troponin T C-Reactive Protein Albumin Triglycerides Cholesterol LDL Cholesterol Direct HDL Cholesterol Arterial Blood Glucose Urine WBC (Auto) Urine Creatinine Vancomycin Trough Random Vancomycin 04/23/20 04/23/20 04/23/20 01:16 06:07 06:07 WBC 12.9 H Hgb 9.7 L Hct MCV 76 L MCH 23 L MCHC RDW 16.4 H Plt Count Lymph % (Auto) Schley % (Auto) 9.6 H Schley # (Auto) 1.2 H Baso # (Auto) Seg Neutrophils % 73.5 H Seg Neuts % (Manual) Lymphocytes % (Manual) Monocytes % (Manual) Nucleated RBC % Seg Neutrophils # 9.4 H Seg Neutrophils # Man Lymphocytes # (Manual) Monocytes # (Manual) PT INR APTT D-Dimer ABG pH POC ABG pO2 ABG HCO3 ABG Base Excess ABG Hemoglobin ABG Sodium ABG Potassium ABG Chloride ABG Glucose Oxyhemoglobin Sodium 148 H Potassium 3.5 L Chloride 116.8 H Carbon Dioxide 20 L BUN 24 H Creatinine Glucose 188 H POC Glucose 145 H Hemoglobin A1c Calcium Magnesium Ferritin ALT Alkaline Phosphatase Lactate Dehydrogenase Total Creatine Kinase Troponin T C-Reactive Protein Albumin 3.2 L Triglycerides Cholesterol LDL Cholesterol Direct HDL Cholesterol Arterial Blood Glucose Urine WBC (Auto) Urine Creatinine Vancomycin Trough Random Vancomycin 04/23/20 04/23/20 04/23/20 07:57 12:04 16:40 WBC Hgb Hct MCV MCH MCHC RDW Plt Count Lymph % (Auto) Schley % (Auto) Schley # (Auto) Baso # (Auto) Seg Neutrophils % Seg Neuts % (Manual) Lymphocytes % (Manual) Monocytes % (Manual) Nucleated RBC % Seg Neutrophils # Seg Neutrophils # Man Lymphocytes # (Manual) Monocytes # (Manual) PT INR APTT D-Dimer ABG pH POC ABG pO2 ABG HCO3 ABG Base Excess ABG Hemoglobin ABG Sodium ABG Potassium ABG Chloride ABG Glucose Oxyhemoglobin Sodium Potassium Chloride Carbon Dioxide BUN Creatinine Glucose POC Glucose 145 H 155 H 164 H Hemoglobin A1c Calcium Magnesium Ferritin ALT Alkaline Phosphatase Lactate Dehydrogenase Total Creatine Kinase Troponin T C-Reactive Protein Albumin Triglycerides Cholesterol LDL Cholesterol Direct HDL Cholesterol Arterial Blood Glucose Urine WBC (Auto) Urine Creatinine Vancomycin Trough Random Vancomycin 04/23/20 04/24/20 04/24/20 21:49 00:15 07:41 WBC Hgb Hct MCV 78 L MCH 23 L MCHC 29 L RDW 16.8 H Plt Count Lymph % (Auto) Schley % (Auto) Schley # (Auto) Baso # (Auto) Seg Neutrophils % Seg Neuts % (Manual) 78.0 H Lymphocytes % (Manual) 10.0 L Monocytes % (Manual) 9.0 H Nucleated RBC % 1.0 H Seg Neutrophils # Seg Neutrophils # Man 8.0 H Lymphocytes # (Manual) 1.0 L Monocytes # (Manual) 0.9 H PT INR APTT D-Dimer ABG pH POC ABG pO2 ABG HCO3 ABG Base Excess ABG Hemoglobin ABG Sodium ABG Potassium ABG Chloride ABG Glucose Oxyhemoglobin Sodium Potassium Chloride Carbon Dioxide BUN Creatinine Glucose POC Glucose 141 H 138 H Hemoglobin A1c Calcium Magnesium Ferritin ALT Alkaline Phosphatase Lactate Dehydrogenase Total Creatine Kinase Troponin T C-Reactive Protein Albumin Triglycerides Cholesterol LDL Cholesterol Direct HDL Cholesterol Arterial Blood Glucose Urine WBC (Auto) Urine Creatinine Vancomycin Trough Random Vancomycin 01/06/1304/24/20 04/24/20 07:41 08:37 11:42 WBC Hgb Hct MCV MCH MCHC RDW Plt Count Lymph % (Auto) Schley % (Auto) Schley # (Auto) Baso # (Auto) Seg Neutrophils % Seg Neuts % (Manual) Lymphocytes % (Manual) Monocytes % (Manual) Nucleated RBC % Seg Neutrophils # Seg Neutrophils # Man Lymphocytes # (Manual) Monocytes # (Manual) PT INR APTT D-Dimer ABG pH POC ABG pO2 ABG HCO3 ABG Base Excess ABG Hemoglobin ABG Sodium ABG Potassium ABG Chloride ABG Glucose Oxyhemoglobin Sodium 149 H Potassium Chloride 119.0 H Carbon Dioxide 19 L BUN 19 H Creatinine Glucose 172 H POC Glucose 150 H 197 H Hemoglobin A1c Calcium Magnesium Ferritin ALT Alkaline Phosphatase 135 H Lactate Dehydrogenase Total Creatine Kinase Troponin T C-Reactive Protein Albumin 3.0 L Triglycerides Cholesterol LDL Cholesterol Direct HDL Cholesterol Arterial Blood Glucose Urine WBC (Auto) Urine Creatinine Vancomycin Trough Random Vancomycin
--- NOTE | 2020-04-24 15:44 | Progress Note ---
Subjective Date of service: 04/24/20 Principal diagnosis: Elevated cardiac enzymes Interval history: Assessment and plan: 54-year-old female with multiple medical problems including Peptic ulcer disease, Hypothyroidism, JANI, HLD, insulin-dependent diabetes, hypertension, and GERD, peripheral neuropathy and hyperlipidemia was found unresponsive and diaphoretic at home. In the ED the patient was feeling groggy and admits to shortness of breath and cough. Very when asked if she remembers how she ended up in the emergency room patient could not answer the question. Very poor historian. No fever or chills. Not known whether exposed to coronavirus. Early this year was treated for sepsis and encephalopathy. CXR: Unremarkable CT Head: IMPRESSION: There are stable postoperative changes involving frontal lobes with encephalomalacia and residual left parafalcine lesion as detailed above. Overall, this been no significant interval change from 11/27/2018. 04/17: Awaiting todays labs to evaluate renal function and obtain Central Service Technician. Cardiology consulted for Type 2 OH, wound care also consulted due to 5th right toe wound, will adjust Insulin for Blood sugar. 04/18. Labs reviewed. Cardiology recommends ischemic work up prior to DC. Monitor blood gas 04/19. Discussed with patient's daughter who mentions that patient is usually able to have a normal conversation. Patient is also able to use her phone and post pictures on Facebook. Daughter's last conversation with patient was 4 days ago. In light of these changes, will order an LP to rule out encephalitis. MRI brain and EEG also ordered as per neurology evaluation earlier. Labs have been reviewed-started on hypotonic solution for hypernatremia. 04/20. Plan for MRI brain and EEG today. LP still pending. Neurology evaluation. Labs reviewed-sodium 154. Continue hypotonic solution/ 04/20PM. Patient was intubated for airway protection and transferred to the critical care unit. 04/21. She is slightly awake this morning. Not clearly following commands during my encounter. She was afebrile overnight. Her labs shows leukocytosis. LP still pending. She will need MRI brain as well to rule out CVA. EEG ordered. CT abdomen and pelvis will be ordered to determine any source of infection. Awaiting neurology reevaluation. 04/22. Not able to have CT and MRI as she cannot fit into machine. Plan for LP. Remains intubated. Neurology to see 04/23/20 patient is awake and alert and oriented, lab results reviewed, cardiology, ID, pulmonary and nephrology notes reviewed Plan (1) Acute encephalopathy Current Visit: Yes Status: Acute Plan to address problem: Improving. She is more awake and alert at baseline - she has a normal conversation with family as per daughter. Continue cefepime and vancomycin Unclear if LP was done EEG Not able to have MRI brain Rule out other sources of possible infection - ID recs appreciated. (2) Sepsis Current Visit: Yes Status: Acute Qualifiers: Severe sepsis shock status: without septic shock Plan to address problem: No source of infection identified. IV cefepime and vancomycin started empirically. ID recs appreciated Awaiting LP. Not able to have CT abdomen and pelvis (3) Elevated troponin- ?Type 2 Current Visit: Yes Status: Acute Plan to address problem: Cardiology note reviewed Not a candidate for aggressive therapy (4) JOEL (acute kidney injury) Current Visit: Yes Status: Acute Plan to address problem: Secondary to vasomotor nephropathy IV fluids Nephrology note reviewed (5) Hypernatremia Current Visit: Yes Status: Acute Plan to address problem: Poor intake Continue hypotonic solution (6) IDDM (insulin dependent diabetes mellitus) Current Visit: Yes Status: Chronic Plan to address problem: Continue Lantus and SSI (7) Hyperlipidemia Current Visit: No Status: Chronic Qualifiers: Hyperlipidemia type: mixed hyperlipidemia Qualified Code(s): E78.2 - Mixed hyperlipidemia Plan to address problem: Continue statins (8) Hypertension Current Visit: Yes Status: Chronic Qualifiers: Hypertension type: essential hypertension Qualified Code(s): I10 - Essential (primary) hypertension Plan to address problem: Continue antihypertensives and adjust medications as necessary (9) GERD (gastroesophageal reflux disease) Current Visit: Yes Status: Chronic Qualifiers: Esophagitis presence: without esophagitis Qualified Code(s): K21.9 - Gastro-esophageal reflux disease without esophagitis Plan to address problem: Continue Protonix (10) Peripheral neuropathy Current Visit: Yes Status: Chronic Qualifiers: Peripheral neuropathy type: polyneuropathy, unspecified Qualified Code(s): G62.9 - Polyneuropathy, unspecified Plan to address problem: Continue Lyrica (11) Seizure disorder Current Visit: Yes Status: Chronic Plan to address problem: Continue Lamictal No seizures noted this time. Neurology recs appreciated. EEG pending Morbid obesity Rule out JANI Outpatient follow-up with pulmonary for sleep study (12) DVT prophylaxis Current Visit: No Status: Acute Narrative exam: VITAL SIGNS: Reviewed. GENERAL: Alert, moderately obese HEAD: No signs of head trauma. EYES: Pupils are equal. Extraocular motions intact. MOUTH: Oropharynx is normal. NECK: No adenopathy, no JVD. CHEST: Bilateral coarse breath sounds. No wheezes, rales, or rhonchi. CARDIAC: Regular rate and rhythm ABDOMEN: Soft, non tender MUSCULOSKELETAL: Bilateral leg edema and right foot covered with dressing NEUROLOGIC EXAM: Patient is alert and oriented SKIN: No obvious lesions, discoloration of skin across the lower abdomen Objective - Constitutional Vitals: Vital Signs - 12hr 04/24/20 04/24/20 04/24/20 04:42 05:12 08:30 Temperature 98.0 F Pulse Rate 76 Respiratory 20 Rate Blood Pressure 115/57 O2 Sat by Pulse 97 98 95 Oximetry 04/24/20 04/24/20 08:42 12:00 Temperature 98.3 F Pulse Rate 81 79 Respiratory 20 20 Rate Blood Pressure 134/69 O2 Sat by Pulse 95 96 Oximetry - Labs CBC & Chem 7: 04/24/20 07:41 04/24/20 07:41 Labs: Abnormal lab results 04/23/20 04/23/20 04/24/20 Range/Units 16:40 21:49 00:15 MCV (79-97) fl MCH (28-32) pg MCHC (30-34) % RDW (13.2-15.2) % Seg Neuts % (Manual) (40.0-70.0) % Lymphocytes % (Manual) (13.4-35.0) % Monocytes % (Manual) (0.0-7.3) % Nucleated RBC % (0.0-0.9) % Seg Neutrophils # Man (1.8-7.7) K/mm3 Lymphocytes # (Manual) (1.2-5.4) K/mm3 Monocytes # (Manual) (0.0-0.8) K/mm3 Sodium (137-145) mmol/L Chloride (98-107) mmol/L Carbon Dioxide (22-30) mmol/L BUN (7-17) mg/dL Glucose (65-100) mg/dL POC Glucose 164 H 141 H 138 H (70-105) mg/dL Alkaline Phosphatase (35-129) units/L Albumin (3.9-5) g/dL 04/24/20 04/24/20 04/24/20 Range/Units 07:41 07:41 08:37 MCV 78 L (79-97) fl MCH 23 L (28-32) pg MCHC 29 L (30-34) % RDW 16.8 H (13.2-15.2) % Seg Neuts % (Manual) 78.0 H (40.0-70.0) % Lymphocytes % (Manual) 10.0 L (13.4-35.0) % Monocytes % (Manual) 9.0 H (0.0-7.3) % Nucleated RBC % 1.0 H (0.0-0.9) % Seg Neutrophils # Man 8.0 H (1.8-7.7) K/mm3 Lymphocytes # (Manual) 1.0 L (1.2-5.4) K/mm3 Monocytes # (Manual) 0.9 H (0.0-0.8) K/mm3 Sodium 149 H (137-145) mmol/L Chloride 119.0 H (98-107) mmol/L Carbon Dioxide 19 L (22-30) mmol/L BUN 19 H (7-17) mg/dL Glucose 172 H (65-100) mg/dL POC Glucose 150 H (70-105) mg/dL Alkaline Phosphatase 135 H (35-129) units/L Albumin 3.0 L (3.9-5) g/dL 04/24/20 Range/Units 11:42 MCV (79-97) fl MCH (28-32) pg MCHC (30-34) % RDW (13.2-15.2) % Seg Neuts % (Manual) (40.0-70.0) % Lymphocytes % (Manual) (13.4-35.0) % Monocytes % (Manual) (0.0-7.3) % Nucleated RBC % (0.0-0.9) % Seg Neutrophils # Man (1.8-7.7) K/mm3 Lymphocytes # (Manual) (1.2-5.4) K/mm3 Monocytes # (Manual) (0.0-0.8) K/mm3 Sodium (137-145) mmol/L Chloride (98-107) mmol/L Carbon Dioxide (22-30) mmol/L BUN (7-17) mg/dL Glucose (65-100) mg/dL POC Glucose 197 H (70-105) mg/dL Alkaline Phosphatase (35-129) units/L Albumin (3.9-5) g/dL HEART Score - HEART Score Age: 45-65 Risk factors: > 3 risk factors or hx of atherosclerotic disease Troponin: Troponin T < 0.010 ng/mL (0.00-0.029) 04/17/20 18:37 Troponin: 1-3x normal limit - Critical Actions Critical Actions: 4-6 pts:12-16.6% risk of adverse cardiac event. Should be admitted
[2020-04-24] MEDS: PANTOPRAZOLE 40 MG INJ IV SCH (15:46)
--- NOTE | 2020-04-24 15:49 | Progress Note ---
Assessment and Plan 1. Acute kidney injury: Vasomotor JOEL in the setting of hypotension. Monitor renal function. BUN and Creatinine level is better. Avoid nephrotoxic agents. Meds dosage based on GFR. 2. FEN: Metabolic acidosis, monitor. Hypokalemia, replete K as needed, monitor. Hypernatremia, continue IV D5W, monitor. Monitor lytes. 3. Acute metabolic encephalopathy: MRI pending. 4. Acute hypoxic resp failure: S/p extubated. Monitor. 5. Sepsis: On IV Ceftriaxone and Vancomycin. Followed by ID. 6. Elevated troponin: Seen by Cardiology. 7. DM Type 2. 8. H/o Seizures. 9. H/o Meningioma resection. 10. Sleep apnea. Subjective: The patient was not examined today. However the examination findings from other providers noted. The current and previous medical records are reviewed in detail as are laboratory and imaging data reviewed when appropriate. Medications being given are also reviewed. In addition the case has been discussed with the attending hospitalist and the nurse when needed. New renal recommendations as above. Examination: Subjective Date of service: 04/24/20 Principal diagnosis: Elevated cardiac enzymes Objective - Vital Signs Vital signs: Vital Signs - 12hr 04/24/20 04/24/20 04/24/20 04:42 05:12 08:30 Temperature 98.0 F Pulse Rate 76 Respiratory 20 Rate Blood Pressure 115/57 O2 Sat by Pulse 97 98 95 Oximetry 04/24/20 04/24/20 08:42 12:00 Temperature 98.3 F Pulse Rate 81 79 Respiratory 20 20 Rate Blood Pressure 134/69 O2 Sat by Pulse 95 96 Oximetry - Lab 04/27/20 09:13 04/27/20 08:44 Most recent lab results ABG pH 7.390 pH Units (7.350-7.450) 04/22/20 04:40 ABG pCO2 32.4 mm Hg 04/22/20 04:40 ABG pO2 85.3 mm Hg (80.0-90.0) 04/22/20 04:40 ABG HCO3 19.2 mmol/L (20.0-26.0) L 04/22/20 04:40 ABG O2 Saturation 96.9 % (95.0-99.0) 04/22/20 04:40 Calcium 9.4 mg/dL (8.4-10.2) 04/24/20 07:41 Phosphorus 3.30 mg/dL (2.5-4.5) 04/20/20 05:19 Magnesium 1.60 mg/dL (1.7-2.3) L 04/22/20 18:20 Urine Creatinine 190.1 mg/dL (0.1-20.0) H 04/21/20 Unknown Urine Sodium 44 mmol/L 04/21/20 Unknown Medications & Allergies - Medications Allergies/Adverse Reactions: Allergies erythromycin base [From Erythrocin] Allergy (Verified 11/26/18 06:03) Itching Penicillins Allergy (Verified 11/26/18 06:02) Rash Home Medications: Home Medications Medication Instructions Recorded Confirmed Last Taken Type Atorvastatin Calcium 40 mg PO BID 11/26/18 04/17/20 11/25/18 08:00 History Cholecalciferol Vit D3 [Vitamin D3 1,000 1000units PO QDAY 11/26/18 04/17/20 11/25/18 08:00 History 1,000 UNIT TAB] HYDROcodone/APAP 5-325 [[place] 1 each PO Q4HR PRN 11/26/18 04/17/20 Unknown History 5-325 mg TAB] Hydrocortisone [Cortef TAB] 10 mg PO BID 11/26/18 04/17/20 Unknown History Lasix TAB 20 mg PO BID 11/26/18 04/17/20 Unknown History Levothyroxine [Synthroid] 50 mcg PO QAM 11/26/18 04/17/20 11/24/18 08:00 History Lispro Insulin [HumaLOG] See Protocol SUB-Q ACHS 11/26/18 04/17/20 11/25/18 Hist ory Metoprolol [Lopressor TAB] 50 mg PO BID 11/26/18 04/17/20 Unknown History Mometasone 0.1% (Nf) 0.1 units TP BID 11/26/18 04/17/20 Unknown History Pantoprazole [Protonix TAB] 40 mg PO BID 11/26/18 04/17/20 Unknown History Petrolatum,White [Vaseline White 5 gm TP BID 11/26/18 04/17/20 Unknown History Petroleum] Pregabalin [Lyrica] 150 mg PO BID 11/26/18 04/17/20 11/25/18 08:00 History lamoTRIgine [LaMICtal] 25 mg PO BID 11/26/18 04/17/20 Unknown History ALBUTEROL NEB's [Proventil 0.083% 2.5 mg IH Q4HRT PRN nebu 05/20/19 04/17/20 Unknown Rx NEBS] Apixaban [Eliquis] 5 mg PO BID tablet 05/20/19 04/17/20 Unknown Rx AtorvaSTATin [Lipitor] 40 mg PO QDAY tablet 05/20/19 04/17/20 Unknown Rx Amiodarone [Cordarone 200 MG TAB] 200 mg PO BID tablet 04/28/20 Unknown Rx Amoxicillin/K Clav Tab [Augmentin 1 each PO Q12HR tablet 04/28/20 Unknown Rx 875MG TAB] AtorvaSTATin [Lipitor] 40 mg PO QHS tablet 04/28/20 Unknown Rx Cholecalciferol Vit D3 [Vitamin D3 1,000 unit PO DAILY tablet 04/28/20 Unknown Rx 1,000 UNIT TAB] Insulin Glargine [Lantus VIAL] 26 units SUB-Q QHS units 04/28/20 Unknown Rx Insulin Lispro [Humalog] 0 unit SUB-Q ACHS vial 04/28/20 Unknown Rx Sulfamethoxazole/Trimethoprim 1 each PO Q12HR tablet 04/28/20 Unknown Rx [Bactrim DS TAB] Active Medications: Generic Name Dose Route Start Last Admin Trade Name Freq PRN Reason Stop Dose Admin Acetaminophen 650 mg 04/17/20 23:57 04/18/20 01:04 Acetaminophen 650 Mg Rect Supp RI 650 mg Q6H PRN Administration Pain, Mild (1-3) Albuterol 2.5 mg 04/17/20 08:00 Albuterol 2.5 Mg/3 Ml Nebu IH Q4HRT PRN Shortness Of Breath Amiodarone HCl 200 mg 04/19/20 13:00 04/24/20 10:41 Amiodarone 200 Mg Tab PO 200 mg BID VIOLETA Administration Aspirin 81 mg 04/19/20 13:00 04/24/20 10:41 Aspirin 81 Mg Tab Chew PO 81 mg QDAY VIOLETA Administration Atorvastatin Calcium 40 mg 04/17/20 22:00 04/23/20 22:00 Atorvastatin 40 Mg Tab PO 40 mg QHS VIOLETA Administration Cholecalciferol 1,000 unit 04/17/20 14:00 04/24/20 10:41 Cholecalciferol (Vit D3) 1000 Unit (25 Mcg) Tab PO 1,000 unit DAILY VIOLETA Administration Clopidogrel Bisulfate 75 mg 04/20/20 10:00 04/24/20 10:41 Clopidogrel 75 Mg Tab PO 75 mg QDAY [facility] Administration Heparin Sodium (Porcine) 5,000 unit 04/19/20 13:00 04/24/20 10:41 Heparin 5,000 Unit/1 Ml Vial SUB-Q 5,000 unit Q12HR VIOLETA Administration Hydrocortisone Acetate 10 mg 04/17/20 10:00 04/24/20 10:41 Hydrocortisone 10 Mg Tab PO 10 mg BID VIOLETA Administration Potassium Chloride 40 meq/ 1,020 mls @ 100 mls/hr 04/22/20 09:00 04/22/20 21:56 Dextrose IV 100 mls/hr DIRECT VIOLETA Administration Ceftriaxone Sodium 2 gm in 100 mls @ 200 mls/hr 04/22/20 11:00 04/24/20 10:42 Rocephin/Ns 2 Gm/100 Ml IV 200 mls/hr Q24HR [facility] Administration Protocol Vancomycin HCl 1,750 mg/ 535 mls @ 333.333 mls/hr 04/24/20 22:00 Sodium Chloride IV Q24H [facility] Insulin Glargine 26 units 04/19/20 22:00 04/23/20 21:50 Insulin Glargine 100 Units/Ml SUB-Q Not Given QHS [facility] Insulin Human Lispro 0 unit 04/21/20 18:00 04/24/20 12:00 Insulin Lispro 100 Unit/Ml Vial 3 Ml SUB-Q 3 unit Q6H [facility] Administration Protocol Lamotrigine 25 mg 04/17/20 10:00 04/24/20 10:41 Lamotrigine 25 Mg Tab PO 25 mg BID [facility] Administration Levothyroxine Sodium 50 mcg 04/17/20 10:00 04/24/20 05:59 Levothyroxine 50 Mcg Tab PO 50 mcg DAILY@0600 [facility] Administration Metoprolol Tartrate 50 mg 04/19/20 14:00 04/24/20 14:58 Metoprolol Tartrate 50 Mg Tab PO 50 mg TID [facility] Administration Nitroglycerin 0.2 mg 04/21/20 06:00 04/24/20 06:06 Nitroglycerin 0.2 Mg Patch 24hr TD Not Given QDAY@0600 VIOLETA Pantoprazole Sodium 40 mg 04/24/20 11:00 04/24/20 10:43 Pantoprazole 40 Mg Tab PO 40 mg BIDAC VIOLETA Administration Pregabalin 150 mg 04/17/20 10:00 04/24/20 10:41 Pregabalin 75 Mg Cap PO 150 mg BID VIOLETA Administration
[2020-04-24] MEDS: VANCOMYCIN 1,750 MG in SODIUM CHLORIDE 0.9% 500 ML 500 ML IV SCH (22:08)
[2020-04-24] MEDS: INSULIN GLARGINE 100 UNITS/ML SUB-Q SCH (22:08)
[2020-04-25] MEDS: INSULIN LISPRO 100 UNIT/ML VIAL 3 mL SUB-Q SCH ×4 (01:18→17:59)
[2020-04-25] MEDS: LEVOTHYROXINE 50 MCG TAB PO SCH (05:35)
[2020-04-25] MEDS: NITROGLYCERIN 0.2 MG PATCH 24HR TD SCH (05:35)
[2020-04-25] MEDS ORDERED: SODIUM BICARBONATE 325 MG TAB FEEDTUBE PRN (10:00)
[2020-04-25] MEDS ORDERED: LIPASE 10,500/PROTEASE 25,000/AMYLASE 43,750 (UNITS) DR CAP FEEDTUBE PRN (10:00)
[2020-04-25] MEDS ORDERED: SIMPLE SYRUP 15 ML FEEDTUBE PRN ×2 (10:00)
[2020-04-25] MEDS: METOPROLOL TARTRATE 50 MG TAB PO SCH ×3 (10:27→22:49)
[2020-04-25] MEDS: lamoTRIgine 25 MG TAB PO SCH ×2 (10:27→22:48)
[2020-04-25] MEDS: ASPIRIN 81 MG TAB CHEW PO SCH (10:27)
[2020-04-25] MEDS: AMIODARONE 200 MG TAB PO SCH ×2 (10:27→22:48)
[2020-04-25] MEDS: CHOLECALCIFEROL (VIT D3) 1000 UNIT (25 mcg) TAB PO SCH (10:27)
[2020-04-25] MEDS: PREGABALIN 75 MG CAP PO SCH ×2 (10:28→22:48)
[2020-04-25] MEDS: HYDROCORTISONE 10 MG TAB PO SCH ×2 (10:28→22:48)
[2020-04-25] MEDS: CLOPIDOGREL 75 MG TAB PO SCH (10:28)
[2020-04-25] MEDS: cefTRIAXone/NS 2 GM/100 ML 2 GM/100 ML BAG IV SCH (10:28)
[2020-04-25] MEDS: HEPARIN 5,000 UNIT/1 ML VIAL SUB-Q SCH ×2 (10:28→22:48)
[2020-04-25] MEDS: PANTOPRAZOLE 40 MG TAB PO SCH ×2 (10:30→17:43)
--- NOTE | 2020-04-25 12:16 | Progress Note ---
Assessment and Plan 1. Acute kidney injury: Vasomotor JOEL in the setting of hypotension. Monitor renal function. BUN and Creatinine level is better. Avoid nephrotoxic agents. Meds dosage based on GFR. No labs from today. 2. FEN: Metabolic acidosis, monitor. Hypokalemia, replete K as needed, monitor. Hypernatremia, encourage PO fluids, monitor. Monitor lytes. 3. Acute metabolic encephalopathy: MRI pending. 4. Acute hypoxic resp failure: S/p extubated. Monitor. 5. Sepsis: On IV Ceftriaxone and Vancomycin. Followed by ID. 6. Elevated troponin: Seen by Cardiology. 7. DM Type 2. 8. H/o Seizures. 9. H/o Meningioma resection. 10. Sleep apnea. Subjective: The patient was not examined today. However the examination findings from other providers noted. The current and previous medical records are reviewed in detail as are laboratory and imaging data reviewed when appropriate. Medications being given are also reviewed. In addition the case has been discussed with the attending hospitalist and the nurse when needed. New renal recommendations as above. Examination: Subjective Date of service: 04/25/20 Principal diagnosis: Elevated cardiac enzymes Objective - Vital Signs Vital signs: Vital Signs - 12hr 04/25/20 04/25/20 04/25/20 03:17 03:33 05:07 Temperature 99.9 F H 97.9 F Pulse Rate 64 Respiratory 20 20 Rate Blood Pressure 110/61 O2 Sat by Pulse 99 Oximetry 04/25/20 04/25/20 04/25/20 05:35 08:16 08:38 Temperature 98.3 F Pulse Rate 72 80 Respiratory 22 Rate Blood Pressure 110/61 124/63 O2 Sat by Pulse 99 98 Oximetry - Lab 04/27/20 09:13 04/27/20 08:44 Most recent lab results ABG pH 7.390 pH Units (7.350-7.450) 04/22/20 04:40 ABG pCO2 32.4 mm Hg 04/22/20 04:40 ABG pO2 85.3 mm Hg (80.0-90.0) 04/22/20 04:40 ABG HCO3 19.2 mmol/L (20.0-26.0) L 04/22/20 04:40 ABG O2 Saturation 96.9 % (95.0-99.0) 04/22/20 04:40 Calcium 9.4 mg/dL (8.4-10.2) 04/24/20 07:41 Phosphorus 3.30 mg/dL (2.5-4.5) 04/20/20 05:19 Magnesium 1.60 mg/dL (1.7-2.3) L 04/22/20 18:20 Urine Creatinine 190.1 mg/dL (0.1-20.0) H 04/21/20 Unknown Urine Sodium 44 mmol/L 04/21/20 Unknown Medications & Allergies - Medications Allergies/Adverse Reactions: Allergies erythromycin base [From Erythrocin] Allergy (Verified 11/26/18 06:03) Itching Penicillins Allergy (Verified 11/26/18 06:02) Rash Home Medications: Home Medications Medication Instructions Recorded Confirmed Last Taken Type Atorvastatin Calcium 40 mg PO BID 11/26/18 04/17/20 11/25/18 08:00 History Cholecalciferol Vit D3 [Vitamin D3 1,000 1000units PO QDAY 11/26/18 04/17/20 11/25/18 08:00 History 1,000 UNIT TAB] HYDROcodone/APAP 5-325 [[place] 1 each PO Q4HR PRN 11/26/18 04/17/20 Unknown History 5-325 mg TAB] Hydrocortisone [Cortef TAB] 10 mg PO BID 11/26/18 04/17/20 Unknown History Lasix TAB 20 mg PO BID 11/26/18 04/17/20 Unknown History Levothyroxine [Synthroid] 50 mcg PO QAM 11/26/18 04/17/20 11/24/18 08:00 History Lispro Insulin [HumaLOG] See Protocol SUB-Q ACHS 11/26/18 04/17/20 11/25/18 History Metoprolol [Lopressor TAB] 50 mg PO BID 11/26/18 04/17/20 Unknown History Mometasone 0.1% (Nf) 0.1 units TP BID 11/26/18 04/17/20 Unknown History Pantoprazole [Protonix TAB] 40 mg PO BID 11/26/18 04/17/20 Unknown History Petrolatum,White [Vaseline White 5 gm TP BID 11/26/18 04/17/20 Unknown History Petroleum] Pregabalin [Lyrica] 150 mg PO BID 11/26/18 04/17/20 11/25/18 08:00 History lamoTRIgine [LaMICtal] 25 mg PO BID 11/26/18 04/17/20 Unknown History ALBUTEROL NEB's [Proventil 0.083% 2.5 mg IH Q4HRT PRN nebu 05/20/19 04/17/20 Unknown Rx NEBS] Apixaban [Eliquis] 5 mg PO BID tablet 05/20/19 04/17/20 Unknown Rx AtorvaSTATin [Lipitor] 40 mg PO QDAY tablet 05/20/19 04/17/20 Unknown Rx Amiodarone [Cordarone 200 MG TAB] 200 mg PO BID tablet 04/28/20 Unknown Rx Amoxicillin/K Clav Tab [Augmentin 1 each PO Q12HR tablet 04/28/20 Unknown Rx 875MG TAB] AtorvaSTATin [Lipitor] 40 mg PO QHS tablet 04/28/20 Unknown Rx Cholecalciferol Vit D3 [Vitamin D3 1,000 unit PO DAILY tablet 04/28/20 Unknown Rx 1,000 UNIT TAB] Insulin Glargine [Lantus VIAL] 26 units SUB-Q QHS units 04/28/20 Unknown Rx Insulin Lispro [Humalog] 0 unit SUB-Q ACHS vial 04/28/20 Unknown Rx Sulfamethoxazole/Trimethoprim 1 each PO Q12HR tablet 04/28/20 Unknown Rx [Bactrim DS TAB] Active Medications: Generic Name Dose Route Start Last Admin Trade Name Freq PRN Reason Stop Dose Admin Acetaminophen 650 mg 04/17/20 23:57 04/18/20 01:04 Acetaminophen 650 Mg Rect Supp SD 650 mg Q6H PRN Administration Pain, Mild (1-3) Albuterol 2.5 mg 04/17/20 08:00 Albuterol 2.5 Mg/3 Ml Nebu IH Q4HRT PRN Shortness Of Breath Amiodarone HCl 200 mg 04/19/20 13:00 04/25/20 10:27 Amiodarone 200 Mg Tab PO 200 mg BID VIOLETA Administration Lipase/Protease/Amylase 1 each 04/25/20 10:00 Lipase 10,500/Protease 25,000/Amylase 43,750 (Units) Dr Pineda FEEDTUBE PRN PRN For Clogged Feeding Tube Aspirin 81 mg 04/19/20 13:00 04/25/20 10:27 Aspirin 81 Mg Tab Chew PO 81 mg QDAY VIOLETA Administration Atorvastatin Calcium 40 mg 04/17/20 22:00 04/24/20 22:06 Atorvastatin 40 Mg Tab PO 40 mg QHS [facility]IOLETA Administration Cholecalciferol 1,000 unit 04/17/20 14:00 04/25/20 10:27 Cholecalciferol (Vit D3) 1000 Unit (25 Mcg) Tab PO 1,000 unit DAILY VIOLETA Administration Clopidogrel Bisulfate 75 mg 04/20/20 10:00 04/25/20 10:28 Clopidogrel 75 Mg Tab PO 75 mg QDAY [facility]IOLETA Administration Heparin Sodium (Porcine) 5,000 unit 04/19/20 13:00 04/25/20 10:28 Heparin 5,000 Unit/1 Ml Vial SUB-Q 5,000 unit Q12HR VIOLETA Administration Hydrocortisone Acetate 10 mg 04/17/20 10:00 04/25/20 10:28 Hydrocortisone 10 Mg Tab PO 10 mg BID VIOLETA Administration Potassium Chloride 40 meq/ 1,020 mls @ 100 mls/hr 04/22/20 09:00 04/22/20 21:56 Dextrose IV 100 mls/hr DIRECT VIOLETA Administration Ceftriaxone Sodium 2 gm in 100 mls @ 200 mls/hr 04/22/20 11:00 04/25/20 10:28 Rocephin/Ns 2 Gm/100 Ml IV 200 mls/hr Q24HR [facility] Administration Protocol Vancomycin HCl 1,750 mg/ 535 mls @ 333.333 mls/hr 04/24/20 22:00 04/24/20 22:08 Sodium Chloride IV 333.333 mls/hr Q24H [facility]LE[facility] Administration Insulin Glargine 26 units 04/19/20 22:00 04/24/20 22:08 Insulin Glargine 100 Units/Ml SUB-Q Not Given QHS [facility] Insulin Human Lispro 0 unit 04/21/20 18:00 04/25/20 05:46 Insulin Lispro 100 Unit/Ml Vial 3 Ml SUB-Q Not Given Q6H [facility] Protocol Lamotrigine 25 mg 04/17/20 10:00 04/25/20 10:27 Lamotrigine 25 Mg Tab PO 25 mg BID VIOLETA Administration Levothyroxine Sodium 50 mcg 04/17/20 10:00 04/25/20 05:35 Levothyroxine 50 Mcg Tab PO 50 mcg DAILY@0600 [facility]IOLETA Administration Metoprolol Tartrate 50 mg 04/19/20 14:00 04/25/20 10:27 Metoprolol Tartrate 50 Mg Tab PO 50 mg TID [facility]IOLETA Administration Nitroglycerin 0.2 mg 04/21/20 06:00 04/25/20 05:35 Nitroglycerin 0.2 Mg Patch 24hr TD 0.2 mg QDAY@0600 [facility]IOLETA Administration Pantoprazole Sodium 40 mg 04/24/20 11:00 04/25/20 10:30 Pantoprazole 40 Mg Tab PO 40 mg BIDAC [facility]LE[facility] Administration Pregabalin 150 mg 04/17/20 10:00 04/25/20 10:28 Pregabalin 75 Mg Cap PO 150 mg BID VIOLETA Administration Simple Syrup 15 ml 04/25/20 10:00 Simple Syrup 15 Ml FEEDTUBE PRN PRN Hypoglycemia Simple Syrup 30 ml 04/25/20 10:00 Simple Syrup 15 Ml FEEDTUBE PRN PRN Hypoglycemia Sodium Bicarbonate 325 mg 04/25/20 10:00 Sodium Bicarbonate 325 Mg Tab FEEDTUBE PRN PRN For Clogged Feeding Tube
--- NOTE | 2020-04-25 13:58 | Progress Note ---
Subjective Date of service: 04/25/20 Principal diagnosis: Elevated cardiac enzymes Interval history: Assessment and plan: 54-year-old female with multiple medical problems including Peptic ulcer disease, Hypothyroidism, JANI, HLD, insulin-dependent diabetes, hypertension, and GERD, peripheral neuropathy and hyperlipidemia was found unresponsive and diaphoretic at home. In the ED the patient was feeling groggy and admits to shortness of breath and cough. Very when asked if she remembers how she ended up in the emergency room patient could not answer the question. Very poor historian. No fever or chills. Not known whether exposed to coronavirus. Early this year was treated for sepsis and encephalopathy. CXR: Unremarkable CT Head: IMPRESSION: There are stable postoperative changes involving frontal lobes with encephalomalacia and residual left parafalcine lesion as detailed above. Overall, this been no significant interval change from 11/27/2018. 04/17: Awaiting todays labs to evaluate renal function and obtain Drama Professor. Cardiology consulted for Type 2 WI, wound care also consulted due to 5th right toe wound, will adjust Insulin for Blood sugar. 04/18. Labs reviewed. Cardiology recommends ischemic work up prior to DC. Monitor blood gas 04/19. Discussed with patient's daughter who mentions that patient is usually able to have a normal conversation. Patient is also able to use her phone and post pictures on Facebook. Daughter's last conversation with patient was 4 days ago. In light of these changes, will order an LP to rule out encephalitis. MRI brain and EEG also ordered as per neurology evaluation earlier. Labs have been reviewed-started on hypotonic solution for hypernatremia. 04/20. Plan for MRI brain and EEG today. LP still pending. Neurology evaluation. Labs reviewed-sodium 154. Continue hypotonic solution/ 04/20PM. Patient was intubated for airway protection and transferred to the critical care unit. 04/21. She is slightly awake this morning. Not clearly following commands during my encounter. She was afebrile overnight. Her labs shows leukocytosis. LP still pending. She will need MRI brain as well to rule out CVA. EEG ordered. CT abdomen and pelvis will be ordered to determine any source of infection. Awaiting neurology reevaluation. 04/22. Not able to have CT and MRI as she cannot fit into machine. Plan for LP. Remains intubated. Neurology to see 04/23/20 patient is awake and alert and oriented, lab results reviewed, cardiology, ID, pulmonary and nephrology notes reviewed 04/25 resting, has NG tube. Has been NPO for >3 days. not on IVF. Speech therapy note reviewed. 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 Plan (1) Acute encephalopathy Current Visit: Yes Status: Acute Plan to address problem: Improving. She is more awake and alert at baseline - she has a normal conversation with family as per daughter. EEG Not able to have MRI brain ID recs appreciated. (2) Sepsis Current Visit: Yes Status: Acute Qualifiers: Severe sepsis shock status: without septic shock Plan to address problem: Blood Cx - NGTD IV cefepime and vancomycin started empirically. ID recs appreciated Awaiting LP. Not able to have CT abdomen and pelvis (3) Elevated troponin- ?Type 2 Current Visit: Yes Status: Acute Plan to address problem: Cardiology note reviewed Not a candidate for aggressive therapy (4) JOEL (acute kidney injury) Current Visit: Yes Status: Acute Plan to address problem: improved (5) Hypernatremia Current Visit: Yes Status: Acute Plan to address problem: monitor electrlytes 2/2 volume depletion (6) IDDM (insulin dependent diabetes mellitus) Current Visit: Yes Status: Chronic Plan to address problem: Continue Lantus and SSI (7) Hyperlipidemia Current Visit: No Status: Chronic Qualifiers: Hyperlipidemia type: mixed hyperlipidemia Qualified Code(s): E78.2 - Mixed hyperlipidemia Plan to address problem: Continue statins (8) Hypertension Current Visit: Yes Status: Chronic Qualifiers: Hypertension type: essential hypertension Qualified Code(s): I10 - Essential (primary) hypertension Plan to address problem: Continue antihypertensives (9) GERD (gastroesophageal reflux disease) Current Visit: Yes Status: Chronic Qualifiers: Esophagitis presence: without esophagitis Qualified Code(s): K21.9 - Gastro-esophageal reflux disease without esophagitis Plan to address problem: Continue Protonix (10) Peripheral neuropathy Current Visit: Yes Status: Chronic Qualifiers: Peripheral neuropathy type: polyneuropathy, unspecified Qualified Code(s): G62.9 - Polyneuropathy, unspecified Plan to address problem: Continue Lyrica (11) Seizure disorder Current Visit: Yes Status: Chronic Plan to address problem: Continue Lamictal No seizures noted this time. Neurology recs appreciated. EEG pending Morbid obesity Rule out JANI Outpatient follow-up with pulmonary for sleep study (12) DVT prophylaxis Current Visit: No Status: Acute Narrative exam: VITAL SIGNS: Reviewed. GENERAL: Alert, moderately obese HEAD: No signs of head trauma. EYES: Pupils are equal. Extraocular motions intact. MOUTH: Oropharynx is normal. NECK: No adenopathy, no JVD. CHEST: CTA CARDIAC: Regular rate and rhythm ABDOMEN: Soft, non tender MUSCULOSKELETAL: Bilateral leg edema and right foot covered with dressing NEUROLOGIC EXAM: Patient is alert and oriented SKIN: No obvious lesions, discoloration of skin across the lower abdomen Objective - Constitutional Vitals: Vital Signs - 12hr 04/25/20 04/25/20 04/25/20 03:17 03:33 05:07 Temperature 99.9 F H 97.9 F Pulse Rate 64 Respiratory 20 20 Rate Blood Pressure 110/61 O2 Sat by Pulse 99 Oximetry 04/25/20 04/25/20 04/25/20 05:35 08:16 08:38 Temperature 98.3 F Pulse Rate 72 80 Respiratory 22 Rate Blood Pressure 110/61 124/63 O2 Sat by Pulse 99 98 Oximetry - Labs CBC & Chem 7: 04/24/20 07:41 04/24/20 07:41 Labs: Abnormal lab results 04/24/20 04/24/20 04/25/20 Range/Units 16:17 21:50 06:53 POC Glucose 161 H 120 H 142 H (70-105) mg/dL 04/25/20 04/25/20 Range/Units 07:44 11:33 POC Glucose 140 H 143 H (70-105) mg/dL HEART Score - HEART Score Age: 45-65 Risk factors: > 3 risk factors or hx of atherosclerotic disease Troponin: Troponin T < 0.010 ng/mL (0.00-0.029) 04/17/20 18:37 Troponin: 1-3x normal limit - Critical Actions Critical Actions: 4-6 pts:12-16.6% risk of adverse cardiac event. Should be adm itted
--- NOTE | 2020-04-25 14:51 | Progress Note ---
Assessment and Plan 54 y/o female obese with prior history of sarcoid now with altered mental state and intubated at recommendation of neurology secondary to GCS 1. Pulm-Wean FiO2 to off for sats >88%. Continue bipap QHS and PRN, patient has known JANI but readily admits to noncompliance 2. Neuro-Follow up neuro 3. ID continues to follow. Do not see where LP has been done 4. Guarded prognosis. Will see pRN. Subjective Date of service: 04/25/20 Principal diagnosis: Elevated cardiac enzymes Interval history: No acute events. Stable on 2 liters and wearing bipap at night. Objective Vital Signs - 12hr 04/25/20 04/25/20 04/25/20 03:17 03:33 05:07 Temperature 99.9 F H 97.9 F Pulse Rate 64 Respiratory 20 20 Rate Blood Pressure 110/61 O2 Sat by Pulse 99 Oximetry 04/25/20 04/25/20 04/25/20 05:35 08:16 08:38 Temperature 98.3 F Pulse Rate 72 80 Respiratory 22 Rate Blood Pressure 110/61 124/63 O2 Sat by Pulse 99 98 Oximetry 04/25/20 04/25/20 10:00 12:00 Temperature Pulse Rate 69 Respiratory 18 Rate Blood Pressure O2 Sat by Pulse 96 Oximetry Constitutional: no acute distress, alert, other (morbidly obese) Eyes: non-icteric ENT: other (orally intubated, not on sedation.) Neck: supple, other (large in circumference) Effort: normal Ascultation: Bilateral: clear Percussion: Bilateral: not dull Cardiovascular: regular rate and rhythm Gastrointestinal: normoactive bowel sounds, soft, other (obese) Extremities: other (right foot rapped, poor skin integrity on left) CBC and BMP: 04/24/20 07:41 04/24/20 07:41 ABG, PT/INR, D-dimer: ABG ABG pH 7.390 pH Units (7.350-7.450) 04/22/20 04:40 POC ABG pCO2 37.8 mmHg (32.0-48.0) 04/21/20 03:45 ABG pCO2 32.4 mm Hg 04/22/20 04:40 POC ABG pO2 145.5 mmHg (83-108) H 04/21/20 03:45 ABG pO2 85.3 mm Hg (80.0-90.0) 04/22/20 04:40 POC ABG HCO3 20.1 04/21/20 03:45 ABG O2 Saturation 96.9 % (95.0-99.0) 04/22/20 04:40 PT/INR, D-dimer PT 14.3 Sec. (12.2-14.9) 04/21/20 09:00 INR 1.12 (0.87-1.13) 04/21/20 09:00 D-Dimer 1201.23 ng/mlDDU (0-234) H 04/17/20 10:38 Abnormal lab findings: Abnormal Labs 04/16/20 04/16/20 04/16/20 19:29 19:29 19:31 WBC Hgb Hct MCV MCH MCHC RDW Plt Count Lymph % (Auto) Lassen % (Auto) Lassen # (Auto) Baso # (Auto) Seg Neutrophils % Seg Neuts % (Manual) Lymphocytes % (Manual) Monocytes % (Manual) Nucleated RBC % Seg Neutrophils # Seg Neutrophils # Man Lymphocytes # (Manual) Monocytes # (Manual) PT 19.5 H INR 1.64 H APTT 43.3 H D-Dimer ABG pH POC ABG pO2 ABG HCO3 ABG Base Excess ABG Hemoglobin ABG Sodium ABG Potassium ABG Chloride ABG Glucose Oxyhemoglobin Sodium Potassium 5.3 H Chloride Carbon Dioxide 20 L BUN 49 H Creatinine 1.7 H Glucose 295 H POC Glucose 243 H Hemoglobin A1c Calcium Magnesium Ferritin ALT Alkaline Phosphatase Lactate Dehydrogenase Total Creatine Kinase Troponin T 0.067 H C-Reactive Protein Albumin Triglycerides 171 H Cholesterol 212 H LDL Cholesterol Direct 147 H HDL Cholesterol 35 L Arterial Blood Glucose Urine WBC (Auto) Urine Creatinine Vancomycin Trough Random Vancomycin 04/16/20 04/16/20 04/17/20 19:45 20:37 08:43 WBC 20.6 H Hgb Hct MCV 75 L MCH 24 L MCHC RDW 15.6 H Plt Count 470 H Lymph % (Auto) [place] % (Auto) [place] # (Auto) Baso # (Auto) Seg Neutrophils % Seg Neuts % (Manual) 71.0 H Lymphocytes % (Manual) Monocytes % (Manual) 10.0 H Nucleated RBC % Seg Neutrophils # Seg Neutrophils # Man 14.6 H Lymphocytes # (Manual) Monocytes # (Manual) 2.1 H PT INR APTT D-Dimer ABG pH POC ABG pO2 ABG HCO3 ABG Base Excess ABG Hemoglobin ABG Sodium ABG Potassium ABG Chloride ABG Glucose Oxyhemoglobin Sodium Potassium Chloride Carbon Dioxide BUN Creatinine Glucose POC Glucose 147 H Hemoglobin A1c Calcium Magnesium 2.70 H Ferritin ALT Alkaline Phosphatase Lactate Dehydrogenase Total Creatine Kinase 303 H Troponin T C-Reactive Protein Albumin Triglycerides Cholesterol LDL Cholesterol Direct HDL Cholesterol Arterial Blood Glucose Urine WBC (Auto) Urine Creatinine Vancomycin Trough Random Vancomycin 04/17/20 04/17/20 04/17/20 10:38 10:38 10:38 WBC Hgb Hct MCV MCH MCHC RDW Plt Count Lymph % (Auto) [place] % (Auto) [place] # (Auto) Baso # (Auto) Seg Neutrophils % Seg Neuts % (Manual) Lymphocytes % (Manual) Monocytes % (Manual) Nucleated RBC % Seg Neutrophils # Seg Neutrophils # Man Lymphocytes # (Manual) Monocytes # (Manual) PT INR APTT D-Dimer 1201.23 H ABG pH POC ABG pO2 ABG HCO3 ABG Base Excess ABG Hemoglobin ABG Sodium ABG Potassium ABG Chloride ABG Glucose Oxyhemoglobin Sodium Potassium Chloride Carbon Dioxide BUN Creatinine Glucose 172 H POC Glucose Hemoglobin A1c Calcium Magnesium Ferritin 21544.0 H ALT Alkaline Phosphatase Lactate Dehydrogenase 246 H Total Creatine Kinase Troponin T C-Reactive Protein 13.90 H Albumin Triglycerides Cholesterol LDL Cholesterol Direct HDL Cholesterol Arterial Blood Glucose Urine WBC (Auto) Urine Creatinine Vancomycin Trough Random Vancomycin 04/17/20 04/17/20 04/17/20 10:38 10:38 11:50 WBC 18.0 H Hgb Hct MCV 75 L MCH 23 L MCHC RDW 15.9 H Plt Count Lymph % (Auto) [place] % (Auto) [place] # (Auto) Baso # (Auto) Seg Neutrophils % Seg Neuts % (Manual) 83.0 H Lymphocytes % (Manual) 11.0 L Monocytes % (Manual) Nucleated RBC % 1.0 H Seg Neutrophils # Seg Neutrophils # Man 14.9 H Lymphocytes # (Manual) Monocytes # (Manual) 0.9 H PT INR APTT D-Dimer ABG pH POC ABG pO2 ABG HCO3 ABG Base Excess ABG Hemoglobin ABG Sodium ABG Potassium ABG Chloride ABG Glucose Oxyhemoglobin Sodium Potassium 5.2 H Chloride 107.3 H Carbon Dioxide 21 L BUN 44 H Creatinine Glucose 167 H POC Glucose 146 H Hemoglobin A1c Calcium 10.3 H Magnesium Ferritin ALT Alkaline Phosphatase Lactate Dehydrogenase Total Creatine Kinase Troponin T C-Reactive Protein Albumin Triglycerides Cholesterol LDL Cholesterol Direct HDL Cholesterol Arterial Blood Glucose Urine WBC (Auto) Urine Creatinine Vancomycin Trough Random Vancomycin 04/17/20 04/17/20 04/18/20 17:10 20:41 05:23 WBC Hgb Hct MCV MCH MCHC RDW Plt Count Lymph % (Auto) [place] % (Auto) [place] # (Auto) Baso # (Auto) Seg Neutrophils % Seg Neuts % (Manual) Lymphocytes % (Manual) Monocytes % (Manual) Nucleated RBC % Seg Neutrophils # Seg Neutrophils # Man Lymphocytes # (Manual) Monocytes # (Manual) PT INR APTT D-Dimer ABG pH POC ABG pO2 ABG HCO3 ABG Base Excess ABG Hemoglobin ABG Sodium ABG Potassium ABG Chloride ABG Glucose Oxyhemoglobin Sodium Potassium Chloride Carbon Dioxide BUN Creatinine Glucose POC Glucose 165 H 212 H Hemoglobin A1c 7.6 H Calcium Magnesium Ferritin ALT Alkaline Phosphatase Lactate Dehydrogenase Total Creatine Kinase Troponin T C-Reactive Protein Albumin Triglycerides Cholesterol LDL Cholesterol Direct HDL Cholesterol Arterial Blood Glucose Urine WBC (Auto) Urine Creatinine Vancomycin Trough Random Vancomycin 04/18/20 04/18/20 04/18/20 05:23 05:23 07:33 WBC 16.6 H Hgb Hct MCV 76 L MCH 24 L MCHC RDW 15.9 H Plt Count Lymph % (Auto) 9.8 L [place] % (Auto) 12.9 H [place] # (Auto) 2.1 H Baso # (Auto) Seg Neutrophils % 75.7 H Seg Neuts % (Manual) Lymphocytes % (Manual) Monocytes % (Manual) Nucleated RBC % Seg Neutrophils # 12.6 H Seg Neutrophils # Man Lymphocytes # (Manual) Monocytes # (Manual) PT INR APTT D-Dimer ABG pH POC ABG pO2 ABG HCO3 ABG Base Excess ABG Hemoglobin ABG Sodium ABG Potassium ABG Chloride ABG Glucose Oxyhemoglobin Sodium 148 H Potassium 5.5 H Chloride 114.3 H Carbon Dioxide 19 L BUN 31 H Creatinine Glucose 201 H POC Glucose 178 H Hemoglobin A1c Calcium Magnesium Ferritin ALT Alkaline Phosphatase Lactate Dehydrogenase Total Creatine Kinase Troponin T C-Reactive Protein Albumin Triglycerides Cholesterol LDL Cholesterol Direct HDL Cholesterol Arterial Blood Glucose Urine WBC (Auto) Urine Creatinine Vancomycin Trough Random Vancomycin 04/18/20 04/18/20 04/18/20 11:38 16:07 20:44 WBC Hgb Hct MCV MCH MCHC RDW Plt Count Lymph % (Auto) [place] % (Auto) [place] # (Auto) Baso # (Auto) Seg Neutrophils % Seg Neuts % (Manual) Lymphocytes % (Manual) Monocytes % (Manual) Nucleated RBC % Seg Neutrophils # Seg Neutrophils # Man Lymphocytes # (Manual) Monocytes # (Manual) PT INR APTT D-Dimer ABG pH POC ABG pO2 ABG HCO3 ABG Base Excess ABG Hemoglobin ABG Sodium ABG Potassium ABG Chloride ABG Glucose Oxyhemoglobin Sodium Potassium Chloride Carbon Dioxide BUN Creatinine Glucose POC Glucose 187 H 248 H 243 H Hemoglobin A1c Calcium Magnesium Ferritin ALT Alkaline Phosphatase Lactate Dehydrogenase Total Creatine Kinase Troponin T C-Reactive Protein Albumin Triglycerides Cholesterol LDL Cholesterol Direct HDL Cholesterol Arterial Blood Glucose Urine WBC (Auto) Urine Creatinine Vancomycin Trough Random Vancomycin 04/19/20 04/19/20 04/19/20 04:55 07:40 12:01 WBC Hgb Hct MCV MCH MCHC RDW Plt Count Lymph % (Auto) [place] % (Auto) [place] # (Auto) Baso # (Auto) Seg Neutrophils % Seg Neuts % (Manual) Lymphocytes % (Manual) Monocytes % (Manual) Nucleated RBC % Seg Neutrophils # Seg Neutrophils # Man Lymphocytes # (Manual) Monocytes # (Manual) PT INR APTT D-Dimer ABG pH POC ABG pO2 ABG HCO3 ABG Base Excess ABG Hemoglobin ABG Sodium ABG Potassium ABG Chloride ABG Glucose Oxyhemoglobin Sodium 152 H Potassium Chloride 117.2 H Carbon Dioxide BUN 27 H Creatinine Glucose 325 H POC Glucose 258 H 251 H Hemoglobin A1c Calcium Magnesium Ferritin ALT Alkaline Phosphatase Lactate Dehydrogenase Total Creatine Kinase Troponin T C-Reactive Protein Albumin Triglycerides Cholesterol LDL Cholesterol Direct HDL Cholesterol Arterial Blood Glucose Urine WBC (Auto) Urine Creatinine Vancomycin Trough Random Vancomycin 04/19/20 04/19/20 04/20/20 16:19 21:41 05:19 WBC 14.8 H Hgb Hct MCV 77 L MCH 23 L MCHC RDW 16.5 H Plt Count Lymph % (Auto) [place] % (Auto) 13.6 H [place] # (Auto) 2.0 H Baso # (Auto) 0.2 H Seg Neutrophils % Seg Neuts % (Manual) Lymphocytes % (Manual) Monocytes % (Manual) Nucleated RBC % Seg Neutrophils # 10.2 H Seg Neutrophils # Man Lymphocytes # (Manual) Monocytes # (Manual) PT INR APTT D-Dimer ABG pH POC ABG pO2 ABG HCO3 ABG Base Excess ABG Hemoglobin ABG Sodium ABG Potassium ABG Chloride ABG Glucose Oxyhemoglobin Sodium Potassium Chloride Carbon Dioxide BUN Creatinine Glucose POC Glucose 263 H 276 H Hemoglobin A1c Calcium Magnesium Ferritin ALT Alkaline Phosphatase Lactate Dehydrogenase Total Creatine Kinase Troponin T C-Reactive Protein Albumin Triglycerides Cholesterol LDL Cholesterol Direct HDL Cholesterol Arterial Blood Glucose Urine WBC (Auto) Urine Creatinine Vancomycin Trough Random Vancomycin 04/20/20 04/20/20 04/20/20 05:19 07:22 10:17 WBC Hgb Hct MCV MCH MCHC RDW Plt Count Lymph % (Auto) [place] % (Auto) [place] # (Auto) Baso # (Auto) Seg Neutrophils % Seg Neuts % (Manual) Lymphocytes % (Manual) Monocytes % (Manual) Nucleated RBC % Seg Neutrophils # Seg Neutrophils # Man Lymphocytes # (Manual) Monocytes # (Manual) PT INR APTT D-Dimer ABG pH POC ABG pO2 ABG HCO3 ABG Base Excess ABG Hemoglobin ABG Sodium ABG Potassium ABG Chloride ABG Glucose Oxyhemoglobin Sodium 154 H Potassium Chloride 119.6 H Carbon Dioxide BUN 24 H Creatinine Glucose 298 H POC Glucose 227 H Hemoglobin A1c Calcium Magnesium Ferritin ALT 58 H Alkaline Phosphatase 150 H Lactate Dehydrogenase Total Creatine Kinase Troponin T C-Reactive Protein Albumin 3.3 L Triglycerides Cholesterol LDL Cholesterol Direct HDL Cholesterol Arterial Blood Glucose Urine WBC (Auto) Urine Creatinine Vancomycin Trough 56.2 H Random Vancomycin 04/20/20 04/20/20 04/20/20 10:57 16:05 16:15 WBC Hgb Hct MCV MCH MCHC RDW Plt Count Lymph % (Auto) [place] % (Auto) [place] # (Auto) Baso # (Auto) Seg Neutrophils % Seg Neuts % (Manual) Lymphocytes % (Manual) Monocytes % (Manual) Nucleated RBC % Seg Neutrophils # Seg Neutrophils # Man Lymphocytes # (Manual) Monocytes # (Manual) PT INR APTT D-Dimer ABG pH POC ABG pO2 ABG HCO3 ABG Base Excess ABG Hemoglobin ABG Sodium ABG Potassium ABG Chloride ABG Glucose Oxyhemoglobin Sodium 156 H Potassium Chloride 122.0 H Carbon Dioxide BUN 26 H Creatinine 1.4 H D Glucose 226 H POC Glucose 222 H 183 H Hemoglobin A1c Calcium Magnesium Ferritin ALT Alkaline Phosphatase Lactate Dehydrogenase Total Creatine Kinase Troponin T C-Reactive Protein Albumin Triglycerides Cholesterol LDL Cholesterol Direct HDL Cholesterol Arterial Blood Glucose Urine WBC (Auto) Urine Creatinine Vancomycin Trough Random Vancomycin 04/20/20 04/21/20 04/21/20 18:17 03:45 05:24 WBC 14.9 H Hgb 9.7 L Hct MCV 76 L MCH 22 L MCHC 29 L RDW 16.6 H Plt Count 462 H Lymph % (Auto) [place] % (Auto) [place] # (Auto) Baso # (Auto) Seg Neutrophils % Seg Neuts % (Manual) 71.0 H Lymphocytes % (Manual) Monocytes % (Manual) 12.0 H Nucleated RBC % Seg Neutrophils # Seg Neutrophils # Man 10.6 H Lymphocytes # (Manual) Monocytes # (Manual) 1.8 H PT INR APTT D-Dimer ABG pH 7.286 L POC ABG pO2 137.2 H 145.5 H ABG HCO3 ABG Base Excess ABG Hemoglobin 11.1 L 10.6 L ABG Sodium 153.2 H 153.1 H ABG Potassium 3.2 L ABG Chloride 121.0 H 120.0 H ABG Glucose 256 H 223 H Oxyhemoglobin Sodium Potassium Chloride Carbon Dioxide BUN Creatinine Glucose POC Glucose Hemoglobin A1c Calcium Magnesium Ferritin ALT Alkaline Phosphatase Lactate Dehydrogenase Total Creatine Kinase Troponin T C-Reactive Protein Albumin Triglycerides Cholesterol LDL Cholesterol Direct HDL Cholesterol Arterial Blood Glucose 256 H 223 H Urine WBC (Auto) Urine Creatinine Vancomycin Trough Random Vancomycin 04/21/20 04/21/20 04/21/20 05:24 09:00 12:14 WBC Hgb Hct MCV MCH MCHC RDW Plt Count Lymph % (Auto) [place] % (Auto) [place] # (Auto) Baso # (Auto) Seg Neutrophils % Seg Neuts % (Manual) Lymphocytes % (Manual) Monocytes % (Manual) Nucleated RBC % Seg Neutrophils # Seg Neutrophils # Man Lymphocytes # (Manual) Monocytes # (Manual) PT INR APTT D-Dimer ABG pH POC ABG pO2 ABG HCO3 ABG Base Excess ABG Hemoglobin ABG Sodium ABG Potassium ABG Chloride ABG Glucose Oxyhemoglobin Sodium 154 H Potassium 3.4 L Chloride 121.3 H Carbon Dioxide 19 L D BUN 28 H Creatinine 1.3 H Glucose 230 H POC Glucose 197 H Hemoglobin A1c Calcium Magnesium Ferritin ALT Alkaline Phosphatase 136 H Lactate Dehydrogenase Total Creatine Kinase Troponin T C-Reactive Protein Albumin 3.2 L Triglycerides Cholesterol LDL Cholesterol Direct HDL Cholesterol Arterial Blood Glucose Urine WBC (Auto) Urine Creatinine Vancomycin Trough Random Vancomycin 41.4 H 12/04/21/20 04/21/20 16:54 18:12 23:09 WBC Hgb Hct MCV MCH MCHC RDW Plt Count Lymph % (Auto) [place] % (Auto) [place] # (Auto) Baso # (Auto) Seg Neutrophils % Seg Neuts % (Manual) Lymphocytes % (Manual) Monocytes % (Manual) Nucleated RBC % Seg Neutrophils # Seg Neutrophils # Man Lymphocytes # (Manual) Monocytes # (Manual) PT INR APTT D-Dimer ABG pH POC ABG pO2 ABG HCO3 ABG Base Excess ABG Hemoglobin ABG Sodium ABG Potassium ABG Chloride ABG Glucose Oxyhemoglobin Sodium 151 H Potassium 3.1 L Chloride 118.7 H Carbon Dioxide 20 L BUN 30 H Creatinine 1.3 H Glucose 243 H POC Glucose 195 H 179 H Hemoglobin A1c Calcium Magnesium Ferritin ALT Alkaline Phosphatase Lactate Dehydrogenase Total Creatine Kinase Troponin T C-Reactive Protein Albumin Triglycerides Cholesterol LDL Cholesterol Direct HDL Cholesterol Arterial Blood Glucose Urine WBC (Auto) Urine Creatinine Vancomycin Trough Random Vancomycin 04/21/20 04/21/20 04/22/20 Unknown Unknown 04:40 WBC Hgb Hct MCV MCH MCHC RDW Plt Count Lymph % (Auto) [place] % (Auto) [place] # (Auto) Baso # (Auto) Seg Neutrophils % Seg Neuts % (Manual) Lymphocytes % (Manual) Monocytes % (Manual) Nucleated RBC % Seg Neutrophils # Seg Neutrophils # Man Lymphocytes # (Manual) Monocytes # (Manual) PT INR APTT D-Dimer ABG pH POC ABG pO2 ABG HCO3 19.2 L ABG Base Excess -5.0 L ABG Hemoglobin 10.0 L ABG Sodium ABG Potassium ABG Chloride ABG Glucose Oxyhemoglobin 94.8 L Sodium Potassium Chloride Carbon Dioxide BUN Creatinine Glucose POC Glucose Hemoglobin A1c Calcium Magnesium Ferritin ALT Alkaline Phosphatase Lactate Dehydrogenase Total Creatine Kinase Troponin T C-Reactive Protein Albumin Triglycerides Cholesterol LDL Cholesterol Direct HDL Cholesterol Arterial Blood Glucose Urine WBC (Auto) 21.0 H Urine Creatinine 190.1 H Vancomycin Trough Random Vancomycin 04/22/20 04/22/20 04/22/20 04:54 04:54 05:30 WBC 13.0 H Hgb 9.1 L Hct 29.9 L MCV 75 L MCH 23 L MCHC RDW 16.1 H Plt Count Lymph % (Auto) 12.6 L [place] % (Auto) 9.0 H [place] # (Auto) 1.2 H Baso # (Auto) Seg Neutrophils % 76.0 H Seg Neuts % (Manual) Lymphocytes % (Manual) Monocytes % (Manual) Nucleated RBC % Seg Neutrophils # 9.9 H Seg Neutrophils # Man Lymphocytes # (Manual) Monocytes # (Manual) PT INR APTT D-Dimer ABG pH POC ABG pO2 ABG HCO3 ABG Base Excess ABG Hemoglobin ABG Sodium ABG Potassium ABG Chloride ABG Glucose Oxyhemoglobin Sodium 151 H Potassium 2.8 L* Chloride 118.7 H Carbon Dioxide 21 L BUN 28 H Creatinine 1.3 H Glucose 227 H POC Glucose 182 H Hemoglobin A1c Calcium Magnesium Ferritin ALT Alkaline Phosphatase Lactate Dehydrogenase Total Creatine Kinase Troponin T C-Reactive Protein Albumin 3.2 L Triglycerides Cholesterol LDL Cholesterol Direct HDL Cholesterol Arterial Blood Glucose Urine WBC (Auto) Urine Creatinine Vancomycin Trough Random Vancomycin 04/22/20 04/22/20 04/22/20 11:37 17:43 18:20 WBC Hgb Hct MCV MCH MCHC RDW Plt Count Lymph % (Auto) [place] % (Auto) [place] # (Auto) Baso # (Auto) Seg Neutrophils % Seg Neuts % (Manual) Lymphocytes % (Manual) Monocytes % (Manual) Nucleated RBC % Seg Neutrophils # Seg Neutrophils # Man Lymphocytes # (Manual) Monocytes # (Manual) PT INR APTT D-Dimer ABG pH POC ABG pO2 ABG HCO3 ABG Base Excess ABG Hemoglobin ABG Sodium ABG Potassium ABG Chloride ABG Glucose Oxyhemoglobin Sodium 148 H Potassium Chloride 117.3 H Carbon Dioxide 20 L BUN 25 H Creatinine Glucose 229 H POC Glucose 200 H 199 H Hemoglobin A1c Calcium Magnesium 1.60 L Ferritin ALT Alkaline Phosphatase Lactate Dehydrogenase Total Creatine Kinase Troponin T C-Reactive Protein Albumin Triglycerides Cholesterol LDL Cholesterol Direct HDL Cholesterol Arterial Blood Glucose Urine WBC (Auto) Urine Creatinine Vancomycin Trough Random Vancomycin 04/23/20 04/23/20 04/23/20 01:16 06:07 06:07 WBC 12.9 H Hgb 9.7 L Hct MCV 76 L MCH 23 L MCHC RDW 16.4 H Plt Count Lymph % (Auto) [place] % (Auto) 9.6 H [place] # (Auto) 1.2 H Baso # (Auto) Seg Neutrophils % 73.5 H Seg Neuts % (Manual) Lymphocytes % (Manual) Monocytes % (Manual) Nucleated RBC % Seg Neutrophils # 9.4 H Seg Neutrophils # Man Lymphocytes # (Manual) Monocytes # (Manual) PT INR APTT D-Dimer ABG pH POC ABG pO2 ABG HCO3 ABG Base Excess ABG Hemoglobin ABG Sodium ABG Potassium ABG Chloride ABG Glucose Oxyhemoglobin Sodium 148 H Potassium 3.5 L Chloride 116.8 H Carbon Dioxide 20 L BUN 24 H Creatinine Glucose 188 H POC Glucose 145 H Hemoglobin A1c Calcium Magnesium Ferritin ALT Alkaline Phosphatase Lactate Dehydrogenase Total Creatine Kinase Troponin T C-Reactive Protein Albumin 3.2 L Triglycerides Cholesterol LDL Cholesterol Direct HDL Cholesterol Arterial Blood Glucose Urine WBC (Auto) Urine Creatinine Vancomycin Trough Random Vancomycin 04/23/20 04/23/20 04/23/20 07:57 12:04 16:40 WBC Hgb Hct MCV MCH MCHC RDW Plt Count Lymph % (Auto) [place] % (Auto) [place] # (Auto) Baso # (Auto) Seg Neutrophils % Seg Neuts % (Manual) Lymphocytes % (Manual) Monocytes % (Manual) Nucleated RBC % Seg Neutrophils # Seg Neutrophils # Man Lymphocytes # (Manual) Monocytes # (Manual) PT INR APTT D-Dimer ABG pH POC ABG pO2 ABG HCO3 ABG Base Excess ABG Hemoglobin ABG Sodium ABG Potassium ABG Chloride ABG Glucose Oxyhemoglobin Sodium Potassium Chloride Carbon Dioxide BUN Creatinine Glucose POC Glucose 145 H 155 H 164 H Hemoglobin A1c Calcium Magnesium Ferritin ALT Alkaline Phosphatase Lactate Dehydrogenase Total Creatine Kinase Troponin T C-Reactive Protein Albumin Triglycerides Cholesterol LDL Cholesterol Direct HDL Cholesterol Arterial Blood Glucose Urine WBC (Auto) Urine Creatinine Vancomycin Trough Random Vancomycin 04/23/20 04/24/20 04/24/20 21:49 00:15 07:41 WBC Hgb Hct MCV 78 L MCH 23 L MCHC 29 L RDW 16.8 H Plt Count Lymph % (Auto) [place] % (Auto) [place] # (Auto) Baso # (Auto) Seg Neutrophils % Seg Neuts % (Manual) 78.0 H Lymphocytes % (Manual) 10.0 L Monocytes % (Manual) 9.0 H Nucleated RBC % 1.0 H Seg Neutrophils # Seg Neutrophils # Man 8.0 H Lymphocytes # (Manual) 1.0 L Monocytes # (Manual) 0.9 H PT INR APTT D-Dimer ABG pH POC ABG pO2 ABG HCO3 ABG Base Excess ABG Hemoglobin ABG Sodium ABG Potassium ABG Chloride ABG Glucose Oxyhemoglobin Sodium Potassium Chloride Carbon Dioxide BUN Creatinine Glucose POC Glucose 141 H 138 H Hemoglobin A1c Calcium Magnesium Ferritin ALT Alkaline Phosphatase Lactate Dehydrogenase Total Creatine Kinase Troponin T C-Reactive Protein Albumin Triglycerides Cholesterol LDL Cholesterol Direct HDL Cholesterol Arterial Blood Glucose Urine WBC (Auto) Urine Creatinine Vancomycin Trough Random Vancomycin 04/24/20 04/24/20 04/24/20 07:41 08:37 11:42 WBC Hgb Hct MCV MCH MCHC RDW Plt Count Lymph % (Auto) [place] % (Auto) [place] # (Auto) Baso # (Auto) Seg Neutrophils % Seg Neuts % (Manual) Lymphocytes % (Manual) Monocytes % (Manual) Nucleated RBC % Seg Neutrophils # Seg Neutrophils # Man Lymphocytes # (Manual) Monocytes # (Manual) PT INR APTT D-Dimer ABG pH POC ABG pO2 ABG HCO3 ABG Base Excess ABG Hemoglobin ABG Sodium ABG Potassium ABG Chloride ABG Glucose Oxyhemoglobin Sodium 149 H Potassium Chloride 119.0 H Carbon Dioxide 19 L BUN 19 H Creatinine Glucose 172 H POC Glucose 150 H 197 H Hemoglobin A1c Calcium Magnesium Ferritin ALT Alkaline Phosphatase 135 H Lactate Dehydrogenase Total Creatine Kinase Troponin T C-Reactive Protein Albumin 3.0 L Triglycerides Cholesterol LDL Cholesterol Direct HDL Cholesterol Arterial Blood Glucose Urine WBC (Auto) Urine Creatinine Vancomycin Trough Random Vancomycin 04/24/20 04/24/20 04/25/20 16:17 21:50 06:53 WBC Hgb Hct MCV MCH MCHC RDW Plt Count Lymph % (Auto) [place] % (Auto) [place] # (Auto) Baso # (Auto) Seg Neutrophils % Seg Neuts % (Manual) Lymphocytes % (Manual) Monocytes % (Manual) Nucleated RBC % Seg Neutrophils # Seg Neutrophils # Man Lymphocytes # (Manual) Monocytes # (Manual) PT INR APTT D-Dimer ABG pH POC ABG pO2 ABG HCO3 ABG Base Excess ABG Hemoglobin ABG Sodium ABG Potassium ABG Chloride ABG Glucose Oxyhemoglobin Sodium Potassium Chloride Carbon Dioxide BUN Creatinine Glucose POC Glucose 161 H 120 H 142 H Hemoglobin A1c Calcium Magnesium Ferritin ALT Alkaline Phosphatase Lactate Dehydrogenase Total Creatine Kinase Troponin T C-Reactive Protein Albumin Triglycerides Cholesterol LDL Cholesterol Direct HDL Cholesterol Arterial Blood Glucose Urine WBC (Auto) Urine Creatinine Vancomycin Trough Random Vancomycin 04/25/20 04/25/20 07:44 11:33 WBC Hgb Hct MCV MCH MCHC RDW Plt Count Lymph % (Auto) [place] % (Auto) [place] # (Auto) Baso # (Auto) Seg Neutrophils % Seg Neuts % (Manual) Lymphocytes % (Manual) Monocytes % (Manual) Nucleated RBC % Seg Neutrophils # Seg Neutrophils # Man Lymphocytes # (Manual) Monocytes # (Manual) PT INR APTT D-Dimer ABG pH POC ABG pO2 ABG HCO3 ABG Base Excess ABG Hemoglobin ABG Sodium ABG Potassium ABG Chloride ABG Glucose Oxyhemoglobin Sodium Potassium Chloride Carbon Dioxide BUN Creatinine Glucose POC Glucose 140 H 143 H Hemoglobin A1c Calcium Magnesium Ferritin ALT Alkaline Phosphatase Lactate Dehydrogenase Total Creatine Kinase Troponin T C-Reactive Protein Albumin Triglycerides Cholesterol LDL Cholesterol Direct HDL Cholesterol Arterial Blood Glucose Urine WBC (Auto) Urine Creatinine Vancomycin Trough Random Vancomycin
--- NOTE | 2020-04-25 19:03 | Progress Note ---
Assessment and Plan Patient admitted with altered mental status, infected diabetic ulcer, possible abdominal cellulitis, sepsis, morbid obesity and respiratory failure. Cardiac status was notable for transient inferior injury pattern, resolved on subsequent ECGs. Due to multiple severe comorbidities, patient is not a candidate for aggressive invasive cardiac therapies, underlying coronary artery disease recommended for medical management. Prognosis is poor in the setting of multiple severe acute comorbidities. Subjective Date of service: 04/25/20 Principal diagnosis: Elevated cardiac enzymes Interval history: Patient is lethargic and sleepy, no acute distress. Objective Vital Signs Temp Pulse Resp BP Pulse Ox 04/25/20 15:47 97.4 F L 70 22 111/52 95 04/25/20 12:00 69 04/25/20 10:00 18 96 04/25/20 08:38 98.3 F 80 22 124/63 98 04/25/20 08:16 99 04/25/20 05:35 72 110/61 04/25/20 05:07 97.9 F 64 20 110/61 99 04/25/20 03:33 99.9 F H 04/25/20 03:17 20 04/25/20 00:00 64 04/24/20 23:39 97.7 F 62 22 109/54 98 04/24/20 23:30 60 23 98 04/24/20 22:06 66 117/57 04/24/20 22:00 20 97 04/24/20 20:26 98 04/24/20 19:51 98.3 F 79 20 117/57 98 - Physical Examination General: No Apparent Distress, Other (Patient is somnolent) HEENT: Positive: Normocephaly Neck: Positive: neck supple, Other (No significant abnormality noted) Cardiac: Positive: Reg Rate and Rhythm Lungs: Positive: Decreased Breath Sounds Neuro: Positive: Grossly Intact, Other (Patient somnolent unable to evaluate. However moves all 4 extremities) Abdomen: Positive: Unremarkable Skin: Positive: Clear Extremities: Absent: edema - Imaging and Cardiology EKG: report reviewed
[2020-04-25] MEDS: INSULIN GLARGINE 100 UNITS/ML SUB-Q SCH (22:47)
[2020-04-25] MEDS: VANCOMYCIN 1,750 MG in SODIUM CHLORIDE 0.9% 500 ML 500 ML IV SCH (22:50)
[2020-04-26] MEDS: INSULIN LISPRO 100 UNIT/ML VIAL 3 mL SUB-Q SCH ×4 (00:29→17:39)
[2020-04-26] MEDS: NITROGLYCERIN 0.2 MG PATCH 24HR TD SCH (06:02)
[2020-04-26] MEDS: LEVOTHYROXINE 50 MCG TAB PO SCH (06:04)
[2020-04-26 09:03] LABS: BUN/Creatinine Ratio 19; Blood Urea Nitrogen 19 mg/dL (7-17); Calcium 9.6 mg/dL (8.4-10.2); Hemolysis Index 16
[2020-04-26] MEDS: PANTOPRAZOLE 40 MG TAB PO SCH ×2 (09:13→15:51)
[2020-04-26] MEDS: CLOPIDOGREL 75 MG TAB PO SCH (10:13)
[2020-04-26] MEDS: CHOLECALCIFEROL (VIT D3) 1000 UNIT (25 mcg) TAB PO SCH (10:13)
[2020-04-26] MEDS: AMIODARONE 200 MG TAB PO SCH ×2 (10:13→21:52)
[2020-04-26] MEDS: ASPIRIN 81 MG TAB CHEW PO SCH (10:13)
[2020-04-26] MEDS: HYDROCORTISONE 10 MG TAB PO SCH ×2 (10:14→21:50)
[2020-04-26] MEDS: PREGABALIN 75 MG CAP PO SCH ×2 (10:14→21:52)
[2020-04-26] MEDS: HEPARIN 5,000 UNIT/1 ML VIAL SUB-Q SCH ×2 (10:14→21:50)
[2020-04-26] MEDS: lamoTRIgine 25 MG TAB PO SCH ×2 (10:14→21:50)
[2020-04-26] MEDS: cefTRIAXone/NS 2 GM/100 ML 2 GM/100 ML BAG IV SCH (10:14)
[2020-04-26] MEDS: METOPROLOL TARTRATE 50 MG TAB PO SCH ×3 (10:26→21:51)
--- NOTE | 2020-04-26 12:47 | Progress Note ---
Assessment and Plan Patient admitted with altered mental status, infected diabetic ulcer, possible abdominal cellulitis, sepsis, morbid obesity and respiratory failure. Cardiac status was notable for transient inferior injury pattern, resolved on subsequent ECGs. Due to multiple severe comorbidities, patient is not a candidate for aggressive invasive cardiac therapies, underlying coronary artery disease recommended for medical management. Prognosis is poor in the setting of multiple severe acute comorbidities. Subjective Date of service: 04/26/20 Principal diagnosis: Elevated cardiac enzymes Interval history: Patient is lethargic and sleepy, no acute distress. Objective Vital Signs Temp Pulse Resp BP BP Pulse Ox 04/26/20 11:49 98.2 F 70 18 128/61 98 04/26/20 10:26 89 121/73 04/26/20 09:18 99 04/26/20 08:31 97.9 F 89 18 129/63 98 04/26/20 06:02 136/66 04/26/20 01:19 98.3 F 82 18 136/66 98 04/25/20 22:00 100 04/25/20 20:27 126/62 04/25/20 20:16 98.7 F 80 20 100 04/25/20 19:49 99 04/25/20 15:47 97.4 F L 70 22 111/52 95 - Physical Examination General: No Apparent Distress, Other (Patient is lethargic and sleepy, but no acute respiratory distress) HEENT: Positive: Normocephaly Neck: Positive: neck supple, Other (No significant abnormality noted) Cardiac: Positive: Reg Rate and Rhythm Lungs: Positive: Decreased Breath Sounds Neuro: Positive: Grossly Intact, Other (Patient somnolent unable to evaluate. However moves all 4 extremities) Abdomen: Positive: Unremarkable Skin: Positive: Clear Extremities: Absent: edema - Labs and Meds Comprehensive Metabolic Panel 04/26/20 Range/Units 08:17 Sodium 149 H (137-145) mmol/L Potassium 5.2 H D (3.6-5.0) mmol/L Chloride 117.0 H (98-107) mmol/L Carbon Dioxide 26 D (22-30) mmol/L BUN 19 H (7-17) mg/dL Creatinine 1.0 (0.6-1.2) mg/dL Glucose 206 H (65-100) mg/dL Calcium 9.6 (8.4-10.2) mg/dL - Imaging and Cardiology EKG: report reviewed
--- NOTE | 2020-04-26 13:52 | Progress Note ---
Assessment and Plan Cultures: Blood culture 04/16/2020 no growth today. SARS-CoV-2 PCR negative. Assessment: 54 years old female with morbid obesity, JANI, PUD, hyperlipidemia, diabetes mellitus, hypertension, GERD, peripheral neuropathy, ? Meningioma status post craniotomy, previous coagulase-negative staph bacteremia and abdominal wall abscess, admitted on 04/16/2020 after being found unresponsive and diaphoretic at home: #Severe sepsis: present on admission with fever, leukocytosis, tachycardia, hypotension; unclear source. ?Abdominal wall cellulitis. Chest x-ray unremarkable. Urinalysis negative. Elevated procalcitonin, though in the setting of JOEL. SARS-CoV-2 PCR negative. #Abdominal wall cellulitis?/deep abdominal folds with maceration: Patient history of abdominal wall abscess. #Right fifth toe wound: Noninfected? #JOEL: Improved #Diabetes mellitus uncontrolled #Encephalopathy: Patient found unresponsive. At baseline she is bedbound. Neurology also on board. Recommendations: -Continue IV Ceftriaxone and Vancomycin for now -White count appears to be improved, if discharging would send with Bactrim and Augmentin to complete 1 week from today stop date 05/03/2020 -Lumbar puncture not performed -> not sure if will be? -CT cannot be performed Jian Pathak MD [facility] O: [phone] F: [phone] Subjective Date of service: 04/26/20 Principal diagnosis: Elevated cardiac enzymes Interval history: Afebrile, white count resolved now 10.3. Cultures remain negative at this time. No other acute changes at the present time. Objective - Exam Narrative Exam: Physical Exam: Constitutional: Awake, following commands, intubated, on the vent Head, Ears, Nose: Normocephalic, atraumatic. Eyes: Conjunctivae/corneas clear. No icterus. No ptosis. Neck: intubated Oral: intubated Cardiovascular: S1, S2 + Respiratory: AE fair bilaterally and equal GI: Soft, obese, large pannus, non-tender; bowel sounds + Musculoskeletal: trace pedal edema. Skin: No rash or abscess Hem/Lymphatic: No palpable cervical or supraclavicular nodes. No lymphangitis Psych: no agitation Neurological: Awake, following commands, intubated, on the vent, exam limited - Constitutional Vitals: Vital Signs Temp Pulse Resp BP Pulse Ox 98.2 F 70 18 128/61 98 04/26/20 11:49 04/26/20 11:49 04/26/20 11:49 04/26/20 11:49 04/26/20 11:49 Temperature -Last 24 Hours Temperature 98.2 F Temperature 97.9 F Temperature 98.3 F Temperature 98.7 F Temperature 97.4 F - Labs CBC & Chem 7: 04/24/20 07:41 04/26/20 08:17 Labs: Abnormal lab results 04/25/20 04/25/20 04/26/20 Range/Units 15:44 23:07 00:18 Sodium (137-145) mmol/L Potassium (3.6-5.0) mmol/L Chloride (98-107) mmol/L BUN (7-17) mg/dL Glucose (65-100) mg/dL POC Glucose 172 H 170 H 180 H (70-105) mg/dL 04/26/20 04/26/20 04/26/20 Range/Units 05:57 08:17 11:47 Sodium 149 H (137-145) mmol/L Potassium 5.2 H D (3.6-5.0) mmol/L Chloride 117.0 H (98-107) mmol/L BUN 19 H (7-17) mg/dL Glucose 206 H (65-100) mg/dL POC Glucose 179 H 185 H (70-105) mg/dL
--- NOTE | 2020-04-26 16:55 | Progress Note ---
Subjective Date of service: 04/26/20 Principal diagnosis: Elevated cardiac enzymes Interval history: Assessment and plan: 54-year-old female with multiple medical problems including Peptic ulcer disease, Hypothyroidism, JANI, HLD, insulin-dependent diabetes, hypertension, and GERD, peripheral neuropathy and hyperlipidemia was found unresponsive and diaphoretic at home. In the ED the patient was feeling groggy and admits to shortness of breath and cough. Very when asked if she remembers how she ended up in the emergency room patient could not answer the question. Very poor historian. No fever or chills. Not known whether exposed to coronavirus. Early this year was treated for sepsis and encephalopathy. CXR: Unremarkable CT Head: IMPRESSION: There are stable postoperative changes involving frontal lobes with encephalomalacia and residual left parafalcine lesion as detailed above. Overall, this been no significant interval change from 11/27/2018. 04/17: Awaiting todays labs to evaluate renal function and obtain [place] [employer]. Cardiology consulted for Type 2 IL, wound care also consulted due to 5th right toe wound, will adjust Insulin for Blood sugar. 04/18. Labs reviewed. Cardiology recommends ischemic work up prior to DC. Monitor blood gas 04/19. Discussed with patient's daughter who mentions that patient is usually able to have a normal conversation. Patient is also able to use her phone and post pictures on Facebook. Daughter's last conversation with patient was 4 days ago. In light of these changes, will order an LP to rule out encephalitis. MRI brain and EEG also ordered as per neurology evaluation earlier. Labs have been reviewed-started on hypotonic solution for hypernatremia. 04/20. Plan for MRI brain and EEG today. LP still pending. Neurology evaluation. Labs reviewed-sodium 154. Continue hypotonic solution/ 04/20PM. Patient was intubated for airway protection and transferred to the critical care unit. 04/21. She is slightly awake this morning. Not clearly following commands during my encounter. She was afebrile overnight. Her labs shows leukocytosis. LP still pending. She will need MRI brain as well to rule out CVA. EEG ordered. CT abdomen and pelvis will be ordered to determine any source of infection. Awaiting neurology reevaluation. 04/22. Not able to have CT and MRI as she cannot fit into machine. Plan for LP. Remains intubated. Neurology to see 04/23/20 patient is awake and alert and oriented, lab results reviewed, cardiology, ID, pulmonary and nephrology notes reviewed 04/25 resting, has NG tube. Has been NPO for >3 days. not on IVF. Speech therapy note reviewed. will consult hydrotreater operator and will start on glucerna pending nutrition consult. 04/26 no acute events over nite. started on NGT feeds pending further rec. by speech therapy. All inter disciplinary notes reviewed. Discussed with CM regarding disposition. needs COVID test Prior to discharge Plan (1) Acute encephalopathy Current Visit: Yes Status: Acute Plan to address problem: Improving. She is more awake and alert at baseline - she has a normal conversation with family as per daughter. EEG Not able to have MRI brain ID recs appreciated. (2) Sepsis Current Visit: Yes Status: Acute Qualifiers: Severe sepsis shock status: without septic shock Plan to address problem: Blood Cx - NGTD IV cefepime and vancomycin started empirically. ID recs appreciated Awaiting LP. Not able to have CT abdomen and pelvis (3) Elevated troponin- ?Type 2 Current Visit: Yes Status: Acute Plan to address problem: Cardiology note reviewed Not a candidate for aggressive therapy (4) JOEL (acute kidney injury) Current Visit: Yes Status: Acute Plan to address problem: improved (5) Hypernatremia Current Visit: Yes Status: Acute Plan to address problem: monitor electrlytes 2/2 volume depletion (6) IDDM (insulin dependent diabetes mellitus) Current Visit: Yes Status: Chronic Plan to address problem: Continue Lantus and SSI (7) Hyperlipidemia Current Visit: No Status: Chronic Qualifiers: Hyperlipidemia type: mixed hyperlipidemia Qualified Code(s): E78.2 - Mixed hyperlipidemia Plan to address problem: Continue statins (8) Hypertension Current Visit: Yes Status: Chronic Qualifiers: Hypertension type: essential hypertension Qualified Code(s): I10 - Essential (primary) hypertension Plan to address problem: Continue antihypertensives (9) GERD (gastroesophageal reflux disease) Current Visit: Yes Status: Chronic Qualifiers: Esophagitis presence: without esophagitis Qualified Code(s): K21.9 - Gastro-esophageal reflux disease without esophagitis Plan to address problem: Continue Protonix (10) Peripheral neuropathy Current Visit: Yes Status: Chronic Qualifiers: Peripheral neuropathy type: polyneuropathy, unspecified Qualified Code(s): G62.9 - Polyneuropathy, unspecified Plan to address problem: Continue Lyrica (11) Seizure disorder Current Visit: Yes Status: Chronic Plan to address problem: Continue Lamictal No seizures noted this time. Neurology recs appreciated. EEG pending Morbid obesity Rule out JANI Outpatient follow-up with pulmonary for sleep study (12) DVT prophylaxis Current Visit: No Status: Acute Narrative exam: VITAL SIGNS: Reviewed. GENERAL: Alert, moderately obese HEAD: No signs of head trauma. EYES: Pupils are equal. Extraocular motions intact. MOUTH: Oropharynx is normal. NECK: No adenopathy, no JVD. CHEST: CTA CARDIAC: Regular rate and rhythm ABDOMEN: Soft, non tender MUSCULOSKELETAL: Bilateral leg edema and right foot covered with dressing NEUROLOGIC EXAM: Patient is alert and oriented SKIN: No obvious lesions, discoloration of skin across the lower abdomen Objective - Constitutional Vitals: Vital Signs - 12hr 04/26/20 04/26/20 04/26/20 06:02 08:31 09:18 Temperature 97.9 F Pulse Rate 89 Respiratory 18 Rate Blood Pressure 136/66 129/63 O2 Sat by Pulse 98 99 Oximetry 04/26/20 04/26/20 04/26/20 10:00 10:26 11:49 Temperature 98.2 F Pulse Rate 89 70 Respiratory 18 Rate Blood Pressure 121/73 128/61 O2 Sat by Pulse 99 98 Oximetry 04/26/20 14:20 Temperature Pulse Rate 78 Respiratory Rate Blood Pressure 128/68 O2 Sat by Pulse Oximetry - Labs CBC & Chem 7: 04/24/20 07:41 04/26/20 08:17 Labs: Abnormal lab results 04/25/20 04/26/20 04/26/20 Range/Units 23:07 00:18 05:57 Sodium (137-145) mmol/L Potassium (3.6-5.0) mmol/L Chloride (98-107) mmol/L BUN (7-17) mg/dL Glucose (65-100) mg/dL POC Glucose 170 H 180 H 179 H (70-105) mg/dL 04/26/20 04/26/20 Range/Units 08:17 11:47 Sodium 149 H (137-145) mmol/L Potassium 5.2 H D (3.6-5.0) mmol/L Chloride 117.0 H (98-107) mmol/L BUN 19 H (7-17) mg/dL Glucose 206 H (65-100) mg/dL POC Glucose 185 H (70-105) mg/dL HEART Score - HEART Score Age: 45-65 Risk factors: > 3 risk factors or hx of atherosclerotic disease Troponin: Troponin T < 0.010 ng/mL (0.00-0.029) 04/17/20 18:37 Troponin: 1-3x normal limit - Critical Actions Critical Actions: 4-6 pts:12-16.6% risk of adverse cardiac event. Should be admitted
[2020-04-26] MEDS: INSULIN GLARGINE 100 UNITS/ML SUB-Q SCH (21:52)
[2020-04-26] MEDS: VANCOMYCIN 1,750 MG in SODIUM CHLORIDE 0.9% 500 ML 500 ML IV SCH (21:55)
--- NOTE | 2020-04-26 23:55 | Progress Note ---
Assessment and Plan 1. Acute kidney injury: Vasomotor JOEL in the setting of hypotension. Monitor renal function. BUN and Creatinine level is better. Avoid nephrotoxic agents. Meds dosage based on GFR. No labs from today. 2. FEN: Metabolic acidosis, monitor. Hypokalemia, replete K as needed, monitor. Hypernatremia, encourage PO fluids, monitor. Monitor lytes. 3. Acute metabolic encephalopathy: MRI pending. 4. Acute hypoxic resp failure: S/p extubated. Monitor. 5. Sepsis: On IV Ceftriaxone and Vancomycin. Followed by ID. 6. Elevated troponin: Seen by Cardiology. 7. DM Type 2. 8. H/o Seizures. 9. H/o Meningioma resection. 10. Sleep apnea. Subjective: The patient was not examined today. However the examination findings from other providers noted. The current and previous medical records are reviewed in detail as are laboratory and imaging data reviewed when appropriate. Medications being given are also reviewed. In addition the case has been discussed with the attending hospitalist and the nurse when needed. New renal recommendations as above. Examination: Subjective Date of service: 04/26/20 Principal diagnosis: Elevated cardiac enzymes Objective - Vital Signs Vital signs: Vital Signs - 12hr 04/26/20 04/26/20 04/26/20 12:00 14:20 17:32 Temperature Pulse Rate 87 78 68 Respiratory 18 Rate Blood Pressure 128/68 142/65 O2 Sat by Pulse 93 Oximetry 04/26/20 04/26/20 04/26/20 19:34 21:49 21:51 Temperature 98.4 F Pulse Rate 70 70 Respiratory 18 Rate Blood Pressure 120/49 O2 Sat by Pulse 97 99 Oximetry 04/26/20 23:25 Temperature 98.3 F Pulse Rate 78 Respiratory 18 Rate Blood Pressure 137/63 O2 Sat by Pulse 91 Oximetry - Lab 04/27/20 09:13 04/27/20 08:44 Most recent lab results ABG pH 7.390 pH Units (7.350-7.450) 04/22/20 04:40 ABG pCO2 32.4 mm Hg 04/22/20 04:40 ABG pO2 85.3 mm Hg (80.0-90.0) 04/22/20 04:40 ABG HCO3 19.2 mmol/L (20.0-26.0) L 04/22/20 04:40 ABG O2 Saturation 96.9 % (95.0-99.0) 04/22/20 04:40 Calcium 9.6 mg/dL (8.4-10.2) 04/26/20 08:17 Phosphorus 3.30 mg/dL (2.5-4.5) 04/20/20 05:19 Magnesium 1.60 mg/dL (1.7-2.3) L 04/22/20 18:20 Urine Creatinine 190.1 mg/dL (0.1-20.0) H 04/21/20 Unknown Urine Sodium 44 mmol/L 04/21/20 Unknown Medications & Allergies - Medications Allergies/Adverse Reactions: Allergies erythromycin base [From Erythrocin] Allergy (Verified 11/26/18 06:03) Itching Penicillins Allergy (Verified 11/26/18 06:02) Rash Home Medications: Home Medications Medication Instructions Recorded Confirmed Last Taken Type Atorvastatin Calcium 40 mg PO BID 11/26/18 04/17/20 11/25/18 08:00 History Cholecalciferol Vit D3 [Vitamin D3 1,000 1000units PO QDAY 11/26/18 04/17/20 11/25/18 08:00 History 1,000 UNIT TAB] HYDROcodone/APAP 5-325 [Jackson 1 each PO Q4HR PRN 11/26/18 04/17/20 Unknown History 5-325 mg TAB] Hydrocortisone [Cortef TAB] 10 mg PO BID 11/26/18 04/17/20 Unknown History Lasix TAB 20 mg PO BID 11/26/18 04/17/20 Unknown History Levothyroxine [Synthroid] 50 mcg PO QAM 11/26/18 04/17/20 11/24/18 08:00 History Lispro Insulin [HumaLOG] See Protocol SUB-Q ACHS 11/26/18 04/17/20 11/25/18 History Metoprolol [Lopressor TAB] 50 mg PO BID 11/26/18 04/17/20 Unknown History Mometasone 0.1% (Nf) 0.1 units TP BID 11/26/18 04/17/20 Unknown History Pantoprazole [Protonix TAB] 40 mg PO BID 11/26/18 04/17/20 Unknown History Petrolatum,White [Vaseline White 5 gm TP BID 11/26/18 04/17/20 Unknown History Petroleum] Pregabalin [Lyrica] 150 mg PO BID 11/26/18 04/17/20 11/25/18 08:00 History lamoTRIgine [LaMICtal] 25 mg PO BID 11/26/18 04/17/20 Unknown History ALBUTEROL NEB's [Proventil 0.083% 2.5 mg IH Q4HRT PRN nebu 05/20/19 04/17/20 Unknown Rx NEBS] Apixaban [Eliquis] 5 mg PO BID tablet 05/20/19 04/17/20 Unknown Rx AtorvaSTATin [Lipitor] 40 mg PO QDAY tablet 05/20/19 04/17/20 Unknown Rx Amiodarone [Cordarone 200 MG TAB] 200 mg PO BID tablet 04/28/20 Unknown Rx Amoxicillin/K Clav Tab [Augmentin 1 each PO Q12HR tablet 04/28/20 Unknown Rx 875MG TAB] AtorvaSTATin [Lipitor] 40 mg PO QHS tablet 04/28/20 Unknown Rx Cholecalciferol Vit D3 [Vitamin D3 1,000 unit PO DAILY tablet 04/28/20 Unknown Rx 1,000 UNIT TAB] Insulin Glargine [Lantus VIAL] 26 units SUB-Q QHS units 04/28/20 Unknown Rx Insulin Lispro [Humalog] 0 unit SUB-Q ACHS vial 04/28/20 Unknown Rx Sulfamethoxazole/Trimethoprim 1 each PO Q12HR tablet 04/28/20 Unknown Rx [Bactrim DS TAB] Active Medications: Generic Name Dose Route Start Last Admin Trade Name Freq PRN Reason Stop Dose Admin Acetaminophen 650 mg 04/17/20 23:57 04/18/20 01:04 Acetaminophen 650 Mg Rect Supp NM 650 mg Q6H PRN Administration Pain, Mild (1-3) Albuterol 2.5 mg 04/17/20 08:00 Albuterol 2.5 Mg/3 Ml Nebu IH Q4HRT PRN Shortness Of Breath Amiodarone HCl 200 mg 04/19/20 13:00 04/26/20 21:52 Amiodarone 200 Mg Tab PO 200 mg BID VIOLETA Administration Lipase/Protease/Amylase 1 each 04/25/20 10:00 Lipase 10,500/Protease 25,000/Amylase 43,750 (Units) Dr Pineda FEEDTUBE PRN PRN For Clogged Feeding Tube Aspirin 81 mg 04/19/20 13:00 04/26/20 10:13 Aspirin 81 Mg Tab Chew PO 81 mg QDAY VIOLETA Administration Atorvastatin Calcium 40 mg 04/17/20 22:00 04/26/20 21:50 Atorvastatin 40 Mg Tab PO 40 mg QHS VIOLETA Administration Cholecalciferol 1,000 unit 04/17/20 14:00 04/26/20 10:13 Cholecalciferol (Vit D3) 1000 Unit (25 Mcg) Tab PO 1,000 unit DAILY VIOLETA Administration Clopidogrel Bisulfate 75 mg 04/20/20 10:00 04/26/20 10:13 Clopidogrel 75 Mg Tab PO 75 mg QDAY VIOLETA Administration Heparin Sodium (Porcine) 5,000 unit 04/19/20 13:00 04/26/20 21:50 Heparin 5,000 Unit/1 Ml Vial SUB-Q 5,000 unit Q12HR VIOLETA Administration Hydrocortisone Acetate 10 mg 04/17/20 10:00 04/26/20 21:50 Hydrocortisone 10 Mg Tab PO 10 mg BID VIOLETA Administration Ceftriaxone Sodium 2 gm in 100 mls @ 200 mls/hr 04/22/20 11:00 04/26/20 10:14 Rocephin/Ns 2 Gm/100 Ml IV 200 mls/hr Q24HR VIOLETA Administration Protocol Vancomycin HCl 1,750 mg/ 535 mls @ 333.333 mls/hr 04/24/20 22:00 04/26/20 21:55 Sodium Chloride IV 333.333 mls/hr Q24H VIOLETA Administration Insulin Glargine 26 units 04/19/20 22:00 04/26/20 21:52 Insulin Glargine 100 Units/Ml SUB-Q 26 units QHS VIOLETA Administration Insulin Human Lispro 0 unit 04/21/20 18:00 04/26/20 17:39 Insulin Lispro 100 Unit/Ml Vial 3 Ml SUB-Q 3 unit Q6H VIOLETA Administration Protocol Lamotrigine 25 mg 04/17/20 10:00 04/26/20 21:50 Lamotrigine 25 Mg Tab PO 25 mg BID VIOLETA Administration Levothyroxine Sodium 50 mcg 04/17/20 10:00 04/26/20 06:04 Levothyroxine 50 Mcg Tab PO 50 mcg DAILY@0600 VIOLETA Administration Metoprolol Tartrate 50 mg 04/19/20 14:00 04/26/20 21:51 Metoprolol Tartrate 50 Mg Tab PO 50 mg TID VIOLETA Administration Nitroglycerin 0.2 mg 04/21/20 06:00 04/26/20 06:02 Nitroglycerin 0.2 Mg Patch 24hr TD 0.2 mg QDAY@0600 VIOLETA Administration Pantoprazole Sodium 40 mg 04/24/20 11:00 04/26/20 15:51 Pantoprazole 40 Mg Tab PO 40 mg BIDAC VIOLETA Administration Pregabalin 150 mg 04/17/20 10:00 04/26/20 21:52 Pregabalin 75 Mg Cap PO 150 mg BID VIOLETA Administration Simple Syrup 15 ml 04/25/20 10:00 Simple Syrup 15 Ml FEEDTUBE PRN PRN Hypoglycemia Simple Syrup 30 ml 04/25/20 10:00 Simple Syrup 15 Ml FEEDTUBE PRN PRN Hypoglycemia Sodium Bicarbonate 325 mg 04/25/20 10:00 Sodium Bicarbonate 325 Mg Tab FEEDTUBE PRN PRN For Clogged Feeding Tube
[2020-04-27] MEDS: INSULIN LISPRO 100 UNIT/ML VIAL 3 mL SUB-Q SCH ×4 (00:39→18:45)
[2020-04-27] MEDS: LEVOTHYROXINE 50 MCG TAB PO SCH (05:37)
[2020-04-27] MEDS: NITROGLYCERIN 0.2 MG PATCH 24HR TD SCH (05:37)
[2020-04-27] MEDS: PANTOPRAZOLE 40 MG TAB PO SCH ×2 (09:00→16:05)
[2020-04-27] MEDS: METOPROLOL TARTRATE 50 MG TAB PO SCH ×3 (09:00→20:40)
[2020-04-27 09:32] LABS: Mean Corpuscular HGB Conc 30 % (30-34); Mean Corpuscular Volume 78 fl (79-97); Platelet Count 346 K/mm3 (140-440); Red Blood Count 4.32 M/mm3 (3.65-5.03); Red Cell Distribution Width 17.3 % (13.2-15.2)
[2020-04-27 09:35] LABS: Hematocrit 33.5 % (30.3-42.9)
[2020-04-27 09:42] LABS: BUN/Creatinine Ratio 19; Blood Urea Nitrogen 17 mg/dL (7-17); Calcium 9.5 mg/dL (8.4-10.2); Hemolysis Index 0
[2020-04-27] MEDS: PREGABALIN 75 MG CAP PO SCH ×2 (09:55→22:11)
[2020-04-27] MEDS: lamoTRIgine 25 MG TAB PO SCH ×2 (09:55→22:11)
[2020-04-27] MEDS: AMIODARONE 200 MG TAB PO SCH ×2 (09:55→22:11)
[2020-04-27] MEDS: ASPIRIN 81 MG TAB CHEW PO SCH (09:55)
[2020-04-27] MEDS: HYDROCORTISONE 10 MG TAB PO SCH ×2 (09:56→22:11)
[2020-04-27] MEDS: HEPARIN 5,000 UNIT/1 ML VIAL SUB-Q SCH ×2 (09:56→22:12)
[2020-04-27] MEDS: CHOLECALCIFEROL (VIT D3) 1000 UNIT (25 mcg) TAB PO SCH (09:56)
[2020-04-27] MEDS: CLOPIDOGREL 75 MG TAB PO SCH (09:56)
[2020-04-27] MEDS: cefTRIAXone/NS 2 GM/100 ML 2 GM/100 ML BAG IV SCH (09:57)
--- NOTE | 2020-04-27 11:22 | Progress Note ---
Assessment and Plan 54 y/o female obese with prior history of sarcoid now with altered mental state and intubated at recommendation of neurology secondary to GCS 1. Pulm-Wean FiO2 to off for sats >88%. Continue bipap QHS and PRN, patient has known JANI but readily admits to noncompliance 2. Neuro-Follow up neuro 3. ID continues to follow. Do not see where LP has been done 4. Guarded prognosis. Will sign off Subjective Date of service: 04/27/20 Principal diagnosis: Elevated cardiac enzymes Interval history: Stable pulm status. CM working on disposition Objective Vital Signs - 12hr 04/26/20 04/26/20 04/27/20 23:25 23:30 03:00 Temperature 98.3 F Pulse Rate 78 Respiratory 18 18 19 Rate Blood Pressure 137/63 O2 Sat by Pulse 91 98 97 Oximetry 04/27/20 04/27/20 04/27/20 03:44 05:37 06:00 Temperature 98.4 F Pulse Rate 75 75 Respiratory 21 18 Rate Blood Pressure 105/43 O2 Sat by Pulse 100 99 Oximetry 04/27/20 04/27/20 04/27/20 06:24 09:00 09:14 Temperature 98.1 F Pulse Rate 74 84 Respiratory 18 Rate Blood Pressure 120/72 124/61 O2 Sat by Pulse 99 100 Oximetry Constitutional: no acute distress, alert, other (morbidly obese) Eyes: non-icteric ENT: other (orally intubated, not on sedation.) Neck: supple, other (large in circumference) Effort: normal Ascultation: Bilateral: clear Percussion: Bilateral: not dull Cardiovascular: regular rate and rhythm Gastrointestinal: normoactive bowel sounds, soft, other (obese) Extremities: other (right foot rapped, poor skin integrity on left) CBC and BMP: 04/27/20 09:13 04/27/20 08:44 ABG, PT/INR, D-dimer: ABG ABG pH 7.390 pH Units (7.350-7.450) 04/22/20 04:40 POC ABG pCO2 37.8 mmHg (32.0-48.0) 04/21/20 03:45 ABG pCO2 32.4 mm Hg 04/22/20 04:40 POC ABG pO2 145.5 mmHg (83-108) H 04/21/20 03:45 ABG pO2 85.3 mm Hg (80.0-90.0) 04/22/20 04:40 POC ABG HCO3 20.1 04/21/20 03:45 ABG O2 Saturation 96.9 % (95.0-99.0) 04/22/20 04:40 PT/INR, D-dimer PT 14.3 Sec. (12.2-14.9) 04/21/20 09:00 INR 1.12 (0.87-1.13) 04/21/20 09:00 D-Dimer 1201.23 ng/mlDDU (0-234) H 04/17/20 10:38 Abnormal lab findings: Abnormal Labs 04/16/20 04/16/20 04/16/20 19:29 19:29 19:31 WBC Hgb Hct MCV MCH MCHC RDW Plt Count Lymph % (Auto) [place] % (Auto) [place] # (Auto) Baso # (Auto) Seg Neutrophils % Seg Neuts % (Manual) Lymphocytes % (Manual) Monocytes % (Manual) Nucleated RBC % Seg Neutrophils # Seg Neutrophils # Man Lymphocytes # (Manual) Monocytes # (Manual) PT 19.5 H INR 1.64 H APTT 43.3 H D-Dimer ABG pH POC ABG pO2 ABG HCO3 ABG Base Excess ABG Hemoglobin ABG Sodium ABG Potassium ABG Chloride ABG Glucose Oxyhemoglobin Sodium Potassium 5.3 H Chloride Carbon Dioxide 20 L BUN 49 H Creatinine 1.7 H Glucose 295 H POC Glucose 243 H Hemoglobin A1c Calcium Magnesium Ferritin ALT Alkaline Phosphatase Lactate Dehydrogenase Total Creatine Kinase Troponin T 0.067 H C-Reactive Protein Albumin Triglycerides 171 H Cholesterol 212 H LDL Cholesterol Direct 147 H HDL Cholesterol 35 L Arterial Blood Glucose Urine WBC (Auto) Urine Creatinine Vancomycin Trough Random Vancomycin 04/16/20 04/16/20 04/17/20 19:45 20:37 08:43 WBC 20.6 H Hgb Hct MCV 75 L MCH 24 L MCHC RDW 15.6 H Plt Count 470 H Lymph % (Auto) [place] % (Auto) [place] # (Auto) Baso # (Auto) Seg Neutrophils % Seg Neuts % (Manual) 71.0 H Lymphocytes % (Manual) Monocytes % (Manual) 10.0 H Nucleated RBC % Seg Neutrophils # Seg Neutrophils # Man 14.6 H Lymphocytes # (Manual) Monocytes # (Manual) 2.1 H PT INR APTT D-Dimer ABG pH POC ABG pO2 ABG HCO3 ABG Base Excess ABG Hemoglobin ABG Sodium ABG Potassium ABG Chloride ABG Glucose Oxyhemoglobin Sodium Potassium Chloride Carbon Dioxide BUN Creatinine Glucose POC Glucose 147 H Hemoglobin A1c Calcium Magnesium 2.70 H Ferritin ALT Alkaline Phosphatase Lactate Dehydrogenase Total Creatine Kinase 303 H Troponin T C-Reactive Protein Albumin Triglycerides Cholesterol LDL Cholesterol Direct HDL Cholesterol Arterial Blood Glucose Urine WBC (Auto) Urine Creatinine Vancomycin Trough Random Vancomycin 04/17/20 04/17/20 04/17/20 10:38 10:38 10:38 WBC Hgb Hct MCV MCH MCHC RDW Plt Count Lymph % (Auto) [place] % (Auto) [place] # (Auto) Baso # (Auto) Seg Neutrophils % Seg Neuts % (Manual) Lymphocytes % (Manual) Monocytes % (Manual) Nucleated RBC % Seg Neutrophils # Seg Neutrophils # Man Lymphocytes # (Manual) Monocytes # (Manual) PT INR APTT D-Dimer 1201.23 H ABG pH POC ABG pO2 ABG HCO3 ABG Base Excess ABG Hemoglobin ABG Sodium ABG Potassium ABG Chloride ABG Glucose Oxyhemoglobin Sodium Potassium Chloride Carbon Dioxide BUN Creatinine Glucose 172 H POC Glucose Hemoglobin A1c Calcium Magnesium Ferritin 46595.0 H ALT Alkaline Phosphatase Lactate Dehydrogenase 246 H Total Creatine Kinase Troponin T C-Reactive Protein 13.90 H Albumin Triglycerides Cholesterol LDL Cholesterol Direct HDL Cholesterol Arterial Blood Glucose Urine WBC (Auto) Urine Creatinine Vancomycin Trough Random Vancomycin 04/17/20 04/17/20 04/17/20 10:38 10:38 11:50 WBC 18.0 H Hgb Hct MCV 75 L MCH 23 L MCHC RDW 15.9 H Plt Count Lymph % (Auto) [place] % (Auto) [place] # (Auto) Baso # (Auto) Seg Neutrophils % Seg Neuts % (Manual) 83.0 H Lymphocytes % (Manual) 11.0 L Monocytes % (Manual) Nucleated RBC % 1.0 H Seg Neutrophils # Seg Neutrophils # Man 14.9 H Lymphocytes # (Manual) Monocytes # (Manual) 0.9 H PT INR APTT D-Dimer ABG pH POC ABG pO2 ABG HCO3 ABG Base Excess ABG Hemoglobin ABG Sodium ABG Potassium ABG Chloride ABG Glucose Oxyhemoglobin Sodium Potassium 5.2 H Chloride 107.3 H Carbon Dioxide 21 L BUN 44 H Creatinine Glucose 167 H POC Glucose 146 H Hemoglobin A1c Calcium 10.3 H Magnesium Ferritin ALT Alkaline Phosphatase Lactate Dehydrogenase Total Creatine Kinase Troponin T C-Reactive Protein Albumin Triglycerides Cholesterol LDL Cholesterol Direct HDL Cholesterol Arterial Blood Glucose Urine WBC (Auto) Urine Creatinine Vancomycin Trough Random Vancomycin 04/17/20 04/17/20 04/18/20 17:10 20:41 05:23 WBC Hgb Hct MCV MCH MCHC RDW Plt Count Lymph % (Auto) [place] % (Auto) [place] # (Auto) Baso # (Auto) Seg Neutrophils % Seg Neuts % (Manual) Lymphocytes % (Manual) Monocytes % (Manual) Nucleated RBC % Seg Neutrophils # Seg Neutrophils # Man Lymphocytes # (Manual) Monocytes # (Manual) PT INR APTT D-Dimer ABG pH POC ABG pO2 ABG HCO3 ABG Base Excess ABG Hemoglobin ABG Sodium ABG Potassium ABG Chloride ABG Glucose Oxyhemoglobin Sodium Potassium Chloride Carbon Dioxide BUN Creatinine Glucose POC Glucose 165 H 212 H Hemoglobin A1c 7.6 H Calcium Magnesium Ferritin ALT Alkaline Phosphatase Lactate Dehydrogenase Total Creatine Kinase Troponin T C-Reactive Protein Albumin Triglycerides Cholesterol LDL Cholesterol Direct HDL Cholesterol Arterial Blood Glucose Urine WBC (Auto) Urine Creatinine Vancomycin Trough Random Vancomycin 04/18/20 04/18/20 04/18/20 05:23 05:23 07:33 WBC 16.6 H Hgb Hct MCV 76 L MCH 24 L MCHC RDW 15.9 H Plt Count Lymph % (Auto) 9.8 L [place] % (Auto) 12.9 H [place] # (Auto) 2.1 H Baso # (Auto) Seg Neutrophils % 75.7 H Seg Neuts % (Manual) Lymphocytes % (Manual) Monocytes % (Manual) Nucleated RBC % Seg Neutrophils # 12.6 H Seg Neutrophils # Man Lymphocytes # (Manual) Monocytes # (Manual) PT INR APTT D-Dimer ABG pH POC ABG pO2 ABG HCO3 ABG Base Excess ABG Hemoglobin ABG Sodium ABG Potassium ABG Chloride ABG Glucose Oxyhemoglobin Sodium 148 H Potassium 5.5 H Chloride 114.3 H Carbon Dioxide 19 L BUN 31 H Creatinine Glucose 201 H POC Glucose 178 H Hemoglobin A1c Calcium Magnesium Ferritin ALT Alkaline Phosphatase Lactate Dehydrogenase Total Creatine Kinase Troponin T C-Reactive Protein Albumin Triglycerides Cholesterol LDL Cholesterol Direct HDL Cholesterol Arterial Blood Glucose Urine WBC (Auto) Urine Creatinine Vancomycin Trough Random Vancomycin 04/18/20 04/18/20 04/18/20 11:38 16:07 20:44 WBC Hgb Hct MCV MCH MCHC RDW Plt Count Lymph % (Auto) [place] % (Auto) [place] # (Auto) Baso # (Auto) Seg Neutrophils % Seg Neuts % (Manual) Lymphocytes % (Manual) Monocytes % (Manual) Nucleated RBC % Seg Neutrophils # Seg Neutrophils # Man Lymphocytes # (Manual) Monocytes # (Manual) PT INR APTT D-Dimer ABG pH POC ABG pO2 ABG HCO3 ABG Base Excess ABG Hemoglobin ABG Sodium ABG Potassium ABG Chloride ABG Glucose Oxyhemoglobin Sodium Potassium Chloride Carbon Dioxide BUN Creatinine Glucose POC Glucose 187 H 248 H 243 H Hemoglobin A1c Calcium Magnesium Ferritin ALT Alkaline Phosphatase Lactate Dehydrogenase Total Creatine Kinase Troponin T C-Reactive Protein Albumin Triglycerides Cholesterol LDL Cholesterol Direct HDL Cholesterol Arterial Blood Glucose Urine WBC (Auto) Urine Creatinine Vancomycin Trough Random Vancomycin 04/19/20 04/19/20 04/19/20 04:55 07:40 12:01 WBC Hgb Hct MCV MCH MCHC RDW Plt Count Lymph % (Auto) [place] % (Auto) [place] # (Auto) Baso # (Auto) Seg Neutrophils % Seg Neuts % (Manual) Lymphocytes % (Manual) Monocytes % (Manual) Nucleated RBC % Seg Neutrophils # Seg Neutrophils # Man Lymphocytes # (Manual) Monocytes # (Manual) PT INR APTT D-Dimer ABG pH POC ABG pO2 ABG HCO3 ABG Base Excess ABG Hemoglobin ABG Sodium ABG Potassium ABG Chloride ABG Glucose Oxyhemoglobin Sodium 152 H Potassium Chloride 117.2 H Carbon Dioxide BUN 27 H Creatinine Glucose 325 H POC Glucose 258 H 251 H Hemoglobin A1c Calcium Magnesium Ferritin ALT Alkaline Phosphatase Lactate Dehydrogenase Total Creatine Kinase Troponin T C-Reactive Protein Albumin Triglycerides Cholesterol LDL Cholesterol Direct HDL Cholesterol Arterial Blood Glucose Urine WBC (Auto) Urine Creatinine Vancomycin Trough Random Vancomycin 04/19/20 04/19/20 04/20/20 16:19 21:41 05:19 WBC 14.8 H Hgb Hct MCV 77 L MCH 23 L MCHC RDW 16.5 H Plt Count Lymph % (Auto) [place] % (Auto) 13.6 H [place] # (Auto) 2.0 H Baso # (Auto) 0.2 H Seg Neutrophils % Seg Neuts % (Manual) Lymphocytes % (Manual) Monocytes % (Manual) Nucleated RBC % Seg Neutrophils # 10.2 H Seg Neutrophils # Man Lymphocytes # (Manual) Monocytes # (Manual) PT INR APTT D-Dimer ABG pH POC ABG pO2 ABG HCO3 ABG Base Excess ABG Hemoglobin ABG Sodium ABG Potassium ABG Chloride ABG Glucose Oxyhemoglobin Sodium Potassium Chloride Carbon Dioxide BUN Creatinine Glucose POC Glucose 263 H 276 H Hemoglobin A1c Calcium Magnesium Ferritin ALT Alkaline Phosphatase Lactate Dehydrogenase Total Creatine Kinase Troponin T C-Reactive Protein Albumin Triglycerides Cholesterol LDL Cholesterol Direct HDL Cholesterol Arterial Blood Glucose Urine WBC (Auto) Urine Creatinine Vancomycin Trough Random Vancomycin 04/20/20 04/20/20 04/20/20 05:19 07:22 10:17 WBC Hgb Hct MCV MCH MCHC RDW Plt Count Lymph % (Auto) [place] % (Auto) [place] # (Auto) Baso # (Auto) Seg Neutrophils % Seg Neuts % (Manual) Lymphocytes % (Manual) Monocytes % (Manual) Nucleated RBC % Seg Neutrophils # Seg Neutrophils # Man Lymphocytes # (Manual) Monocytes # (Manual) PT INR APTT D-Dimer ABG pH POC ABG pO2 ABG HCO3 ABG Base Excess ABG Hemoglobin ABG Sodium ABG Potassium ABG Chloride ABG Glucose Oxyhemoglobin Sodium 154 H Potassium Chloride 119.6 H Carbon Dioxide BUN 24 H Creatinine Glucose 298 H POC Glucose 227 H Hemoglobin A1c Calcium Magnesium Ferritin ALT 58 H Alkaline Phosphatase 150 H Lactate Dehydrogenase Total Creatine Kinase Troponin T C-Reactive Protein Albumin 3.3 L Triglycerides Cholesterol LDL Cholesterol Direct HDL Cholesterol Arterial Blood Glucose Urine WBC (Auto) Urine Creatinine Vancomycin Trough 56.2 H Random Vancomycin 04/20/20 04/20/20 04/20/20 10:57 16:05 16:15 WBC Hgb Hct MCV MCH MCHC RDW Plt Count Lymph % (Auto) [place] % (Auto) [place] # (Auto) Baso # (Auto) Seg Neutrophils % Seg Neuts % (Manual) Lymphocytes % (Manual) Monocytes % (Manual) Nucleated RBC % Seg Neutrophils # Seg Neutrophils # Man Lymphocytes # (Manual) Monocytes # (Manual) PT INR APTT D-Dimer ABG pH POC ABG pO2 ABG HCO3 ABG Base Excess ABG Hemoglobin ABG Sodium ABG Potassium ABG Chloride ABG Glucose Oxyhemoglobin Sodium 156 H Potassium Chloride 122.0 H Carbon Dioxide BUN 26 H Creatinine 1.4 H D Glucose 226 H POC Glucose 222 H 183 H Hemoglobin A1c Calcium Magnesium Ferritin ALT Alkaline Phosphatase Lactate Dehydrogenase Total Creatine Kinase Troponin T C-Reactive Protein Albumin Triglycerides Cholesterol LDL Cholesterol Direct HDL Cholesterol Arterial Blood Glucose Urine WBC (Auto) Urine Creatinine Vancomycin Trough Random Vancomycin 04/20/20 04/21/20 04/21/20 18:17 03:45 05:24 WBC 14.9 H Hgb 9.7 L Hct MCV 76 L MCH 22 L MCHC 29 L RDW 16.6 H Plt Count 462 H Lymph % (Auto) [place] % (Auto) [place] # (Auto) Baso # (Auto) Seg Neutrophils % Seg Neuts % (Manual) 71.0 H Lymphocytes % (Manual) Monocytes % (Manual) 12.0 H Nucleated RBC % Seg Neutrophils # Seg Neutrophils # Man 10.6 H Lymphocytes # (Manual) Monocytes # (Manual) 1.8 H PT INR APTT D-Dimer ABG pH 7.286 L POC ABG pO2 137.2 H 145.5 H ABG HCO3 ABG Base Excess ABG Hemoglobin 11.1 L 10.6 L ABG Sodium 153.2 H 153.1 H ABG Potassium 3.2 L ABG Chloride 121.0 H 120.0 H ABG Glucose 256 H 223 H Oxyhemoglobin Sodium Potassium Chloride Carbon Dioxide BUN Creatinine Glucose POC Glucose Hemoglobin A1c Calcium Magnesium Ferritin ALT Alkaline Phosphatase Lactate Dehydrogenase Total Creatine Kinase Troponin T C-Reactive Protein Albumin Triglycerides Cholesterol LDL Cholesterol Direct HDL Cholesterol Arterial Blood Glucose 256 H 223 H Urine WBC (Auto) Urine Creatinine Vancomycin Trough Random Vancomycin 04/21/20 04/21/20 04/21/20 05:24 09:00 12:14 WBC Hgb Hct MCV MCH MCHC RDW Plt Count Lymph % (Auto) [place] % (Auto) [place] # (Auto) Baso # (Auto) Seg Neutrophils % Seg Neuts % (Manual) Lymphocytes % (Manual) Monocytes % (Manual) Nucleated RBC % Seg Neutrophils # Seg Neutrophils # Man Lymphocytes # (Manual) Monocytes # (Manual) PT INR APTT D-Dimer ABG pH POC ABG pO2 ABG HCO3 ABG Base Excess ABG Hemoglobin ABG Sodium ABG Potassium ABG Chloride ABG Glucose Oxyhemoglobin Sodium 154 H Potassium 3.4 L Chloride 121.3 H Carbon Dioxide 19 L D BUN 28 H Creatinine 1.3 H Glucose 230 H POC Glucose 197 H Hemoglobin A1c Calcium Magnesium Ferritin ALT Alkaline Phosphatase 136 H Lactate Dehydrogenase Total Creatine Kinase Troponin T C-Reactive Protein Albumin 3.2 L Triglycerides Cholesterol LDL Cholesterol Direct HDL Cholesterol Arterial Blood Glucose Urine WBC (Auto) Urine Creatinine Vancomycin Trough Random Vancomycin 41.4 H 04/21/20 04/21/20 04/21/20 16:54 18:12 23:09 WBC Hgb Hct MCV MCH MCHC RDW Plt Count Lymph % (Auto) [place] % (Auto) [place] # (Auto) Baso # (Auto) Seg Neutrophils % Seg Neuts % (Manual) Lymphocytes % (Manual) Monocytes % (Manual) Nucleated RBC % Seg Neutrophils # Seg Neutrophils # Man Lymphocytes # (Manual) Monocytes # (Manual) PT INR APTT D-Dimer ABG pH POC ABG pO2 ABG HCO3 ABG Base Excess ABG Hemoglobin ABG Sodium ABG Potassium ABG Chloride ABG Glucose Oxyhemoglobin Sodium 151 H Potassium 3.1 L Chloride 118.7 H Carbon Dioxide 20 L BUN 30 H Creatinine 1.3 H Glucose 243 H POC Glucose 195 H 179 H Hemoglobin A1c Calcium Magnesium Ferritin ALT Alkaline Phosphatase Lactate Dehydrogenase Total Creatine Kinase Troponin T C-Reactive Protein Albumin Triglycerides Cholesterol LDL Cholesterol Direct HDL Cholesterol Arterial Blood Glucose Urine WBC (Auto) Urine Creatinine Vancomycin Trough Random Vancomycin 04/21/20 04/21/20 04/22/20 Unknown Unknown 04:40 WBC Hgb Hct MCV MCH MCHC RDW Plt Count Lymph % (Auto) [place] % (Auto) [place] # (Auto) Baso # (Auto) Seg Neutrophils % Seg Neuts % (Manual) Lymphocytes % (Manual) Monocytes % (Manual) Nucleated RBC % Seg Neutrophils # Seg Neutrophils # Man Lymphocytes # (Manual) Monocytes # (Manual) PT INR APTT D-Dimer ABG pH POC ABG pO2 ABG HCO3 19.2 L ABG Base Excess -5.0 L ABG Hemoglobin 10.0 L ABG Sodium ABG Potassium ABG Chloride ABG Glucose Oxyhemoglobin 94.8 L Sodium Potassium Chloride Carbon Dioxide BUN Creatinine Glucose POC Glucose Hemoglobin A1c Calcium Magnesium Ferritin ALT Alkaline Phosphatase Lactate Dehydrogenase Total Creatine Kinase Troponin T C-Reactive Protein Albumin Triglycerides Cholesterol LDL Cholesterol Direct HDL Cholesterol Arterial Blood Glucose Urine WBC (Auto) 21.0 H Urine Creatinine 190.1 H Vancomycin Trough Random Vancomycin 04/22/20 04/22/20 04/22/20 04:54 04:54 05:30 WBC 13.0 H Hgb 9.1 L Hct 29.9 L MCV 75 L MCH 23 L MCHC RDW 16.1 H Plt Count Lymph % (Auto) 12.6 L [place] % (Auto) 9.0 H [place] # (Auto) 1.2 H Baso # (Auto) Seg Neutrophils % 76.0 H Seg Neuts % (Manual) Lymphocytes % (Manual) Monocytes % (Manual) Nucleated RBC % Seg Neutrophils # 9.9 H Seg Neutrophils # Man Lymphocytes # (Manual) Monocytes # (Manual) PT INR APTT D-Dimer ABG pH POC ABG pO2 ABG HCO3 ABG Base Excess ABG Hemoglobin ABG Sodium ABG Potassium ABG Chloride ABG Glucose Oxyhemoglobin Sodium 151 H Potassium 2.8 L* Chloride 118.7 H Carbon Dioxide 21 L BUN 28 H Creatinine 1.3 H Glucose 227 H POC Glucose 182 H Hemoglobin A1c Calcium Magnesium Ferritin ALT Alkaline Phosphatase Lactate Dehydrogenase Total Creatine Kinase Troponin T C-Reactive Protein Albumin 3.2 L Triglycerides Cholesterol LDL Cholesterol Direct HDL Cholesterol Arterial Blood Glucose Urine WBC (Auto) Urine Creatinine Vancomycin Trough Random Vancomycin 04/22/20 04/22/20 04/22/20 11:37 17:43 18:20 WBC Hgb Hct MCV MCH MCHC RDW Plt Count Lymph % (Auto) [place] % (Auto) [place] # (Auto) Baso # (Auto) Seg Neutrophils % Seg Neuts % (Manual) Lymphocytes % (Manual) Monocytes % (Manual) Nucleated RBC % Seg Neutrophils # Seg Neutrophils # Man Lymphocytes # (Manual) Monocytes # (Manual) PT INR APTT D-Dimer ABG pH POC ABG pO2 ABG HCO3 ABG Base Excess ABG Hemoglobin ABG Sodium ABG Potassium ABG Chloride ABG Glucose Oxyhemoglobin Sodium 148 H Potassium Chloride 117.3 H Carbon Dioxide 20 L BUN 25 H Creatinine Glucose 229 H POC Glucose 200 H 199 H Hemoglobin A1c Calcium Magnesium 1.60 L Ferritin ALT Alkaline Phosphatase Lactate Dehydrogenase Total Creatine Kinase Troponin T C-Reactive Protein Albumin Triglycerides Cholesterol LDL Cholesterol Direct HDL Cholesterol Arterial Blood Glucose Urine WBC (Auto) Urine Creatinine Vancomycin Trough Random Vancomycin 04/23/20 04/23/20 04/23/20 01:16 06:07 06:07 WBC 12.9 H Hgb 9.7 L Hct MCV 76 L MCH 23 L MCHC RDW 16.4 H Plt Count Lymph % (Auto) [place] % (Auto) 9.6 H [place] # (Auto) 1.2 H Baso # (Auto) Seg Neutrophils % 73.5 H Seg Neuts % (Manual) Lymphocytes % (Manual) Monocytes % (Manual) Nucleated RBC % Seg Neutrophils # 9.4 H Seg Neutrophils # Man Lymphocytes # (Manual) Monocytes # (Manual) PT INR APTT D-Dimer ABG pH POC ABG pO2 ABG HCO3 ABG Base Excess ABG Hemoglobin ABG Sodium ABG Potassium ABG Chloride ABG Glucose Oxyhemoglobin Sodium 148 H Potassium 3.5 L Chloride 116.8 H Carbon Dioxide 20 L BUN 24 H Creatinine Glucose 188 H POC Glucose 145 H Hemoglobin A1c Calcium Magnesium Ferritin ALT Alkaline Phosphatase Lactate Dehydrogenase Total Creatine Kinase Troponin T C-Reactive Protein Albumin 3.2 L Triglycerides Cholesterol LDL Cholesterol Direct HDL Cholesterol Arterial Blood Glucose Urine WBC (Auto) Urine Creatinine Vancomycin Trough Random Vancomycin 04/23/20 04/23/20 04/23/20 07:57 12:04 16:40 WBC Hgb Hct MCV MCH MCHC RDW Plt Count Lymph % (Auto) [place] % (Auto) [place] # (Auto) Baso # (Auto) Seg Neutrophils % Seg Neuts % (Manual) Lymphocytes % (Manual) Monocytes % (Manual) Nucleated RBC % Seg Neutrophils # Seg Neutrophils # Man Lymphocytes # (Manual) Monocytes # (Manual) PT INR APTT D-Dimer ABG pH POC ABG pO2 ABG HCO3 ABG Base Excess ABG Hemoglobin ABG Sodium ABG Potassium ABG Chloride ABG Glucose Oxyhemoglobin Sodium Potassium Chloride Carbon Dioxide BUN Creatinine Glucose POC Glucose 145 H 155 H 164 H Hemoglobin A1c Calcium Magnesium Ferritin ALT Alkaline Phosphatase Lactate Dehydrogenase Total Creatine Kinase Troponin T C-Reactive Protein Albumin Triglycerides Cholesterol LDL Cholesterol Direct HDL Cholesterol Arterial Blood Glucose Urine WBC (Auto) Urine Creatinine Vancomycin Trough Random Vancomycin 04/23/20 04/24/20 04/24/20 21:49 00:15 07:41 WBC Hgb Hct MCV 78 L MCH 23 L MCHC 29 L RDW 16.8 H Plt Count Lymph % (Auto) [place] % (Auto) [place] # (Auto) Baso # (Auto) Seg Neutrophils % Seg Neuts % (Manual) 78.0 H Lymphocytes % (Manual) 10.0 L Monocytes % (Manual) 9.0 H Nucleated RBC % 1.0 H Seg Neutrophils # Seg Neutrophils # Man 8.0 H Lymphocytes # (Manual) 1.0 L Monocytes # (Manual) 0.9 H PT INR APTT D-Dimer ABG pH POC ABG pO2 ABG HCO3 ABG Base Excess ABG Hemoglobin ABG Sodium ABG Potassium ABG Chloride ABG Glucose Oxyhemoglobin Sodium Potassium Chloride Carbon Dioxide BUN Creatinine Glucose POC Glucose 141 H 138 H Hemoglobin A1c Calcium Magnesium Ferritin ALT Alkaline Phosphatase Lactate Dehydrogenase Total Creatine Kinase Troponin T C-Reactive Protein Albumin Triglycerides Cholesterol LDL Cholesterol Direct HDL Cholesterol Arterial Blood Glucose Urine WBC (Auto) Urine Creatinine Vancomycin Trough Random Vancomycin 04/24/20 04/24/20 04/24/20 07:41 08:37 11:42 WBC Hgb Hct MCV MCH MCHC RDW Plt Count Lymph % (Auto) [place] % (Auto) [place] # (Auto) Baso # (Auto) Seg Neutrophils % Seg Neuts % (Manual) Lymphocytes % (Manual) Monocytes % (Manual) Nucleated RBC % Seg Neutrophils # Seg Neutrophils # Man Lymphocytes # (Manual) Monocytes # (Manual) PT INR APTT D-Dimer ABG pH POC ABG pO2 ABG HCO3 ABG Base Excess ABG Hemoglobin ABG Sodium ABG Potassium ABG Chloride ABG Glucose Oxyhemoglobin Sodium 149 H Potassium Chloride 119.0 H Carbon Dioxide 19 L BUN 19 H Creatinine Glucose 172 H POC Glucose 150 H 197 H Hemoglobin A1c Calcium Magnesium Ferritin ALT Alkaline Phosphatase 135 H Lactate Dehydrogenase Total Creatine Kinase Troponin T C-Reactive Protein Albumin 3.0 L Triglycerides Cholesterol LDL Cholesterol Direct HDL Cholesterol Arterial Blood Glucose Urine WBC (Auto) Urine Creatinine Vancomycin Trough Random Vancomycin 04/24/20 04/24/20 04/25/20 16:17 21:50 06:53 WBC Hgb Hct MCV MCH MCHC RDW Plt Count Lymph % (Auto) [place] % (Auto) [place] # (Auto) Baso # (Auto) Seg Neutrophils % Seg Neuts % (Manual) Lymphocytes % (Manual) Monocytes % (Manual) Nucleated RBC % Seg Neutrophils # Seg Neutrophils # Man Lymphocytes # (Manual) Monocytes # (Manual) PT INR APTT D-Dimer ABG pH POC ABG pO2 ABG HCO3 ABG Base Excess ABG Hemoglobin ABG Sodium ABG Potassium ABG Chloride ABG Glucose Oxyhemoglobin Sodium Potassium Chloride Carbon Dioxide BUN Creatinine Glucose POC Glucose 161 H 120 H 142 H Hemoglobin A1c Calcium Magnesium Ferritin ALT Alkaline Phosphatase Lactate Dehydrogenase Total Creatine Kinase Troponin T C-Reactive Protein Albumin Triglycerides Cholesterol LDL Cholesterol Direct HDL Cholesterol Arterial Blood Glucose Urine WBC (Auto) Urine Creatinine Vancomycin Trough Random Vancomycin 04/25/20 04/25/20 04/25/20 07:44 11:33 15:44 WBC Hgb Hct MCV MCH MCHC RDW Plt Count Lymph % (Auto) [place] % (Auto) [place] # (Auto) Baso # (Auto) Seg Neutrophils % Seg Neuts % (Manual) Lymphocytes % (Manual) Monocytes % (Manual) Nucleated RBC % Seg Neutrophils # Seg Neutrophils # Man Lymphocytes # (Manual) Monocytes # (Manual) PT INR APTT D-Dimer ABG pH POC ABG pO2 ABG HCO3 ABG Base Excess ABG Hemoglobin ABG Sodium ABG Potassium ABG Chloride ABG Glucose Oxyhemoglobin Sodium Potassium Chloride Carbon Dioxide BUN Creatinine Glucose POC Glucose 140 H 143 H 172 H Hemoglobin A1c Calcium Magnesium Ferritin ALT Alkaline Phosphatase Lactate Dehydrogenase Total Creatine Kinase Troponin T C-Reactive Protein Albumin Triglycerides Cholesterol LDL Cholesterol Direct HDL Cholesterol Arterial Blood Glucose Urine WBC (Auto) Urine Creatinine Vancomycin Trough Random Vancomycin 04/25/20 04/26/20 04/26/20 23:07 00:18 05:57 WBC Hgb Hct MCV MCH MCHC RDW Plt Count Lymph % (Auto) [place] % (Auto) [place] # (Auto) Baso # (Auto) Seg Neutrophils % Seg Neuts % (Manual) Lymphocytes % (Manual) Monocytes % (Manual) Nucleated RBC % Seg Neutrophils # Seg Neutrophils # Man Lymphocytes # (Manual) Monocytes # (Manual) PT INR APTT D-Dimer ABG pH POC ABG pO2 ABG HCO3 ABG Base Excess ABG Hemoglobin ABG Sodium ABG Potassium ABG Chloride ABG Glucose Oxyhemoglobin Sodium Potassium Chloride Carbon Dioxide BUN Creatinine Glucose POC Glucose 170 H 180 H 179 H Hemoglobin A1c Calcium Magnesium Ferritin ALT Alkaline Phosphatase Lactate Dehydrogenase Total Creatine Kinase Troponin T C-Reactive Protein Albumin Triglycerides Cholesterol LDL Cholesterol Direct HDL Cholesterol Arterial Blood Glucose Urine WBC (Auto) Urine Creatinine Vancomycin Trough Random Vancomycin 04/26/20 04/26/20 04/26/20 08:17 11:47 17:30 WBC Hgb Hct MCV MCH MCHC RDW Plt Count Lymph % (Auto) [place] % (Auto) [place] # (Auto) Baso # (Auto) Seg Neutrophils % Seg Neuts % (Manual) Lymphocytes % (Manual) Monocytes % (Manual) Nucleated RBC % Seg Neutrophils # Seg Neutrophils # Man Lymphocytes # (Manual) Monocytes # (Manual) PT INR APTT D-Dimer ABG pH POC ABG pO2 ABG HCO3 ABG Base Excess ABG Hemoglobin ABG Sodium ABG Potassium ABG Chloride ABG Glucose Oxyhemoglobin Sodium 149 H Potassium 5.2 H D Chloride 117.0 H Carbon Dioxide BUN 19 H Creatinine Glucose 206 H POC Glucose 185 H 198 H Hemoglobin A1c Calcium Magnesium Ferritin ALT Alkaline Phosphatase Lactate Dehydrogenase Total Creatine Kinase Troponin T C-Reactive Protein Albumin Triglycerides Cholesterol LDL Cholesterol Direct HDL Cholesterol Arterial Blood Glucose Urine WBC (Auto) Urine Creatinine Vancomycin Trough Random Vancomycin 04/26/20 04/27/20 04/27/20 23:50 05:26 08:44 WBC Hgb Hct MCV MCH MCHC RDW Plt Count Lymph % (Auto) [place] % (Auto) [place] # (Auto) Baso # (Auto) Seg Neutrophils % Seg Neuts % (Manual) Lymphocytes % (Manual) Monocytes % (Manual) Nucleated RBC % Seg Neutrophils # Seg Neutrophils # Man Lymphocytes # (Manual) Monocytes # (Manual) PT INR APTT D-Dimer ABG pH POC ABG pO2 ABG HCO3 ABG Base Excess ABG Hemoglobin ABG Sodium ABG Potassium ABG Chloride ABG Glucose Oxyhemoglobin Sodium 149 H Potassium Chloride 116.3 H Carbon Dioxide BUN Creatinine Glucose 182 H POC Glucose 211 H 174 H Hemoglobin A1c Calcium Magnesium Ferritin ALT Alkaline Phosphatase Lactate Dehydrogenase Total Creatine Kinase Troponin T C-Reactive Protein Albumin Triglycerides Cholesterol LDL Cholesterol Direct HDL Cholesterol Arterial Blood Glucose Urine WBC (Auto) Urine Creatinine Vancomycin Trough Random Vancomycin 04/27/20 09:13 WBC Hgb 10.0 L Hct MCV 78 L MCH 23 L MCHC RDW 17.3 H Plt Count Lymph % (Auto) [place] % (Auto) [place] # (Auto) Baso # (Auto) Seg Neutrophils % Seg Neuts % (Manual) Lymphocytes % (Manual) Monocytes % (Manual) Nucleated RBC % Seg Neutrophils # Seg Neutrophils # Man Lymphocytes # (Manual) Monocytes # (Manual) PT INR APTT D-Dimer ABG pH POC ABG pO2 ABG HCO3 ABG Base Excess ABG Hemoglobin ABG Sodium ABG Potassium ABG Chloride ABG Glucose Oxyhemoglobin Sodium Potassium Chloride Carbon Dioxide BUN Creatinine Glucose POC Glucose Hemoglobin A1c Calcium Magnesium Ferritin ALT Alkaline Phosphatase Lactate Dehydrogenase Total Creatine Kinase Troponin T C-Reactive Protein Albumin Triglycerides Cholesterol LDL Cholesterol Direct HDL Cholesterol Arterial Blood Glucose Urine WBC (Auto) Urine Creatinine Vancomycin Trough Random Vancomycin
--- NOTE | 2020-04-27 12:10 | Progress Note ---
Assessment and Plan Patient admitted with altered mental status, infected diabetic ulcer, possible abdominal cellulitis, sepsis, morbid obesity and respiratory failure. Cardiac status was notable for transient inferior injury pattern, resolved on subsequent ECGs. Due to multiple severe comorbidities, patient is not a candidate for aggressive invasive cardiac therapies, underlying coronary artery disease recommended for medical management. Prognosis is poor in the setting of multiple severe acute comorbidities. Subjective Date of service: 04/27/20 Principal diagnosis: Elevated cardiac enzymes Interval history: Patient is lethargic and sleepy, no acute distress. Objective Vital Signs Temp Pulse Resp BP Pulse Ox 04/27/20 09:14 98.1 F 84 18 124/61 100 04/27/20 09:00 74 120/72 04/27/20 06:24 99 04/27/20 06:00 18 99 04/27/20 05:37 75 04/27/20 03:44 98.4 F 75 21 105/43 100 04/27/20 03:00 19 97 04/26/20 23:30 18 98 04/26/20 23:25 98.3 F 78 18 137/63 91 04/26/20 21:51 70 04/26/20 21:49 99 04/26/20 19:34 98.4 F 70 18 120/49 97 04/26/20 17:32 68 18 142/65 93 04/26/20 14:20 78 128/68 - Physical Examination General: No Apparent Distress, Other (Patient is lethargic and sleepy, but no acute respiratory distress) HEENT: Positive: Normocephaly Neck: Positive: neck supple, Other (No significant abnormality noted) Cardiac: Positive: Reg Rate and Rhythm Lungs: Positive: Decreased Breath Sounds Neuro: Positive: Grossly Intact, Other (Patient somnolent unable to evaluate. However moves all 4 extremities) Abdomen: Positive: Unremarkable Skin: Positive: Clear Extremities: Absent: edema - Labs and Meds CBC 04/27/20 Range/Units 09:13 WBC 10.1 (4.5-11.0) K/mm3 RBC 4.32 (3.65-5.03) M/mm3 Hgb 10.0 L (10.1-14.3) gm/dl Hct 33.5 (30.3-42.9) % Plt Count 346 (140-440) K/mm3 Comprehensive Metabolic Panel 04/26/20 04/27/20 Range/Units 16:35 08:44 Sodium 149 H (137-145) mmol/L Potassium 4.1 D 4.1 (3.6-5.0) mmol/L Chloride 116.3 H (98-107) mmol/L Carbon Dioxide 30 (22-30) mmol/L BUN 17 (7-17) mg/dL Creatinine 0.9 (0.6-1.2) mg/dL Glucose 182 H (65-100) mg/dL Calcium 9.5 (8.4-10.2) mg/dL - Imaging and Cardiology EKG: report reviewed
--- NOTE | 2020-04-27 13:59 | Progress Note ---
Assessment and Plan 1. Acute kidney injury: Vasomotor JOEL in the setting of hypotension. Monitor renal function. BUN and Creatinine level is better. Avoid nephrotoxic agents. Meds dosage based on GFR. 2. FEN: Metabolic acidosis, improved, monitor. Hypokalemia, improved, monitor. Hypernatremia, encourage PO fluids, monitor. Monitor lytes. 3. Acute metabolic encephalopathy: MRI pending. 4. Acute hypoxic resp failure: S/p extubated. Monitor. 5. Sepsis: On Augmentin and Bactrim. Followed by ID. 6. Elevated troponin: Seen by Cardiology. 7. DM Type 2. 8. H/o Seizures. 9. H/o Meningioma resection. 10. Sleep apnea. Subjective: The patient was not examined today. However the examination findings from other providers noted. The current and previous medical records are reviewed in detail as are laboratory and imaging data reviewed when appropriate. Medications being given are also reviewed. In addition the case has been discussed with the attending hospitalist and the nurse when needed. New renal recommendations as above. Examination: Subjective Date of service: 04/27/20 Principal diagnosis: Elevated cardiac enzymes Objective - Vital Signs Vital signs: Vital Signs - 12hr 04/27/20 04/27/20 04/27/20 03:00 03:44 05:37 Temperature 98.4 F Pulse Rate 75 75 Respiratory 19 21 Rate Blood Pressure 105/43 O2 Sat by Pulse 97 100 Oximetry 04/27/20 04/27/20 04/27/20 06:00 06:24 09:00 Temperature Pulse Rate 74 Respiratory 18 Rate Blood Pressure 120/72 O2 Sat by Pulse 99 99 Oximetry 04/27/20 04/27/20 09:14 13:39 Temperature 98.1 F Pulse Rate 84 69 Respiratory 18 Rate Blood Pressure 124/61 121/68 O2 Sat by Pulse 100 Oximetry - Lab 04/27/20 09:13 04/27/20 08:44 Most recent lab results ABG pH 7.390 pH Units (7.350-7.450) 04/22/20 04:40 ABG pCO2 32.4 mm Hg 04/22/20 04:40 ABG pO2 85.3 mm Hg (80.0-90.0) 04/22/20 04:40 ABG HCO3 19.2 mmol/L (20.0-26.0) L 04/22/20 04:40 ABG O2 Saturation 96.9 % (95.0-99.0) 04/22/20 04:40 Calcium 9.5 mg/dL (8.4-10.2) 04/27/20 08:44 Phosphorus 3.30 mg/dL (2.5-4.5) 04/20/20 05:19 Magnesium 1.60 mg/dL (1.7-2.3) L 04/22/20 18:20 Urine Creatinine 190.1 mg/dL (0.1-20.0) H 04/21/20 Unknown Urine Sodium 44 mmol/L 04/21/20 Unknown Medications & Allergies - Medications Allergies/Adverse Reactions: Allergies erythromycin base [From Erythrocin] Allergy (Verified 11/26/18 06:03) Itching Penicillins Allergy (Verified 11/26/18 06:02) Rash Home Medications: Home Medications Medication Instructions Recorded Confirmed Last Taken Type Atorvastatin Calcium 40 mg PO BID 11/26/18 04/17/20 11/25/18 08:00 History Cholecalciferol Vit D3 [Vitamin D3 1,000 1000units PO QDAY 11/26/18 04/17/20 11/25/18 08:00 History 1,000 UNIT TAB] HYDROcodone/APAP 5-325 [[place] 1 each PO Q4HR PRN 11/26/18 04/17/20 Unknown History 5-325 mg TAB] Hydrocortisone [Cortef TAB] 10 mg PO BID 11/26/18 04/17/20 Unknown History Lasix TAB 20 mg PO BID 11/26/18 04/17/20 Unknown History Levothyroxine [Synthroid] 50 mcg PO QAM 11/26/18 04/17/20 11/24/18 08:00 History Lispro Insulin [HumaLOG] See Protocol SUB-Q ACHS 11/26/18 04/17/20 11/25/18 History Metoprolol [Lopressor TAB] 50 mg PO BID 11/26/18 04/17/20 Unknown History Mometasone 0.1% (Nf) 0.1 units TP BID 11/26/18 04/17/20 Unknown History Pantoprazole [Protonix TAB] 40 mg PO BID 11/26/18 04/17/20 Unknown History Petrolatum,White [Vaseline White 5 gm TP BID 11/26/18 04/17/20 Unknown History Petroleum] Pregabalin [Lyrica] 150 mg PO BID 11/26/18 04/17/20 11/25/18 08:00 History lamoTRIgine [LaMICtal] 25 mg PO BID 11/26/18 04/17/20 Unknown History ALBUTEROL NEB's [Proventil 0.083% 2.5 mg IH Q4HRT PRN nebu 05/20/19 04/17/20 Unknown Rx NEBS] Apixaban [Eliquis] 5 mg PO BID tablet 05/20/19 04/17/20 Unknown Rx AtorvaSTATin [Lipitor] 40 mg PO QDAY tablet 05/20/19 04/17/20 Unknown Rx Amiodarone [Cordarone 200 MG TAB] 200 mg PO BID tablet 04/28/20 Unknown Rx Amoxicillin/K Clav Tab [Augmentin 1 each PO Q12HR tablet 04/28/20 Unknown Rx 875MG TAB] AtorvaSTATin [Lipitor] 40 mg PO QHS tablet 04/28/20 Unknown Rx Cholecalciferol Vit D3 [Vitamin D3 1,000 unit PO DAILY tablet 04/28/20 Unknown Rx 1,000 UNIT TAB] Insulin Glargine [Lantus VIAL] 26 units SUB-Q QHS units 04/28/20 Unknown Rx Insulin Lispro [Humalog] 0 unit SUB-Q ACHS vial 04/28/20 Unknown Rx Sulfamethoxazole/Trimethoprim 1 each PO Q12HR tablet 04/28/20 Unknown Rx [Bactrim DS TAB] Active Medications: Generic Name Dose Route Start Last Admin Trade Name Freq PRN Reason Stop Dose Admin Acetaminophen 650 mg 04/17/20 23:57 04/18/20 01:04 Acetaminophen 650 Mg Rect Supp [place] 650 mg Q6H PRN Administration Pain, Mild (1-3) Albuterol 2.5 mg 04/17/20 08:00 Albuterol 2.5 Mg/3 Ml Nebu IH Q4HRT PRN Shortness Of Breath Amiodarone HCl 200 mg 04/19/20 13:00 04/27/20 09:55 Amiodarone 200 Mg Tab PO 200 mg BID VIOLETA Administration Amoxicillin/Clavulanate Potassium 1 each 04/27/20 22:00 Amoxicillin/K Clav 875/125mg Tab PO 05/03/20 23:59 Q12HR VIOLETA Protocol Lipase/Protease/Amylase 1 each 04/25/20 10:00 Lipase 10,500/Protease 25,000/Amylase 43,750 (Units) Dr Edwin MILLERTRADHA PRN PRN For Clogged Feeding Tube Aspirin 81 mg 04/19/20 13:00 04/27/20 09:55 Aspirin 81 Mg Tab Chew PO 81 mg QDAY VIOLETA Administration Atorvastatin Calcium 40 mg 04/17/20 22:00 04/26/20 21:50 Atorvastatin 40 Mg Tab PO 40 mg QHS VIOLETA Administration Cholecalciferol 1,000 unit 04/17/20 14:00 04/27/20 09:56 Cholecalciferol (Vit D3) 1000 Unit (25 Mcg) Tab PO 1,000 unit DAILY VIOLETA Administration Clopidogrel Bisulfate 75 mg 04/20/20 10:00 04/27/20 09:56 Clopidogrel 75 Mg Tab PO 75 mg QDAY VIOLETA Administration Heparin Sodium (Porcine) 5,000 unit 04/19/20 13:00 04/27/20 09:56 Heparin 5,000 Unit/1 Ml Vial SUB-Q 5,000 unit Q12HR VIOLETA Administration Hydrocortisone Acetate 10 mg 04/17/20 10:00 04/27/20 09:56 Hydrocortisone 10 Mg Tab PO 10 mg BID VIOLETA Administration Insulin Glargine 26 units 04/19/20 22:00 04/26/20 21:52 Insulin Glargine 100 Units/Ml SUB-Q 26 units QHS VIOLETA Administration Insulin Human Lispro 0 unit 04/21/20 18:00 04/27/20 12:01 Insulin Lispro 100 Unit/Ml Vial 3 Ml SUB-Q 4 unit Q6H VIOLETA Administration Protocol Lamotrigine 25 mg 04/17/20 10:00 04/27/20 09:55 Lamotrigine 25 Mg Tab PO 25 mg BID VIOLETA Administration Levothyroxine Sodium 50 mcg 04/17/20 10:00 04/27/20 05:37 Levothyroxine 50 Mcg Tab PO 50 mcg DAILY@0600 VIOLETA Administration Metoprolol Tartrate 50 mg 04/19/20 14:00 04/27/20 13:39 Metoprolol Tartrate 50 Mg Tab PO 50 mg TID VIOLETA Administration Nitroglycerin 0.2 mg 04/21/20 06:00 04/27/20 05:37 Nitroglycerin 0.2 Mg Patch 24hr TD 0.2 mg QDAY@0600 VIOLETA Administration Pantoprazole Sodium 40 mg 04/24/20 11:00 04/27/20 09:00 Pantoprazole 40 Mg Tab PO 40 mg BIDAC VIOLETA Administration Pregabalin 150 mg 04/17/20 10:00 04/27/20 09:55 Pregabalin 75 Mg Cap PO 150 mg BID VIOLETA Administration Simple Syrup 15 ml 04/25/20 10:00 Simple Syrup 15 Ml FEEDTUBE PRN PRN Hypoglycemia Simple Syrup 30 ml 04/25/20 10:00 Simple Syrup 15 Ml FEEDTUBE PRN PRN Hypoglycemia Sodium Bicarbonate 325 mg 04/25/20 10:00 Sodium Bicarbonate 325 Mg Tab FEEDTUBE PRN PRN For Clogged Feeding Tube Trimethoprim/Sulfamethoxazole 1 each 04/27/20 22:00 Sulfamethoxazole/Trimethoprim 800/160mg Ds Tab PO 05/03/20 23:59 Q12HR [facility] Protocol
--- NOTE | 2020-04-27 14:32 | Progress Note ---
Assessment and Plan Cultures: Blood culture 04/16/2020 no growth today. SARS-CoV-2 PCR negative. Assessment: 54 years old female with morbid obesity, JANI, PUD, hyperlipidemia, diabetes mellitus, hypertension, GERD, peripheral neuropathy, ? Meningioma status post craniotomy, previous coagulase-negative staph bacteremia and abdominal wall abscess, admitted on 04/16/2020 after being found unresponsive and diaphoretic at home: #Severe sepsis: present on admission with fever, leukocytosis, tachycardia, hypotension; unclear source. ?Abdominal wall cellulitis. Chest x-ray unremarkable. Urinalysis negative. Elevated procalcitonin, though in the setting of JOEL. SARS-CoV-2 PCR negative. #Abdominal wall cellulitis?/deep abdominal folds with maceration: Patient history of abdominal wall abscess. #Right fifth toe wound: Noninfected? #JOEL: Improved #Diabetes mellitus uncontrolled #Encephalopathy: Patient found unresponsive. At baseline she is bedbound. Neurology also on board. Recommendations: -White count appears to be improved, changed to Bactrim and Augmentin to complete until stop date 05/03/2020 ID will sign off. Please call with questions. Jian Pathak MD [facility] ([facility] O: [phone] F: [phone] Subjective Date of service: 04/27/20 Principal diagnosis: Elevated cardiac enzymes Interval history: Afebrile. No other acute changes at the present time. Objective - Exam Narrative Exam: Physical Exam: Constitutional: Awake, following commands, intubated, on the vent Head, Ears, Nose: Normocephalic, atraumatic. Eyes: Conjunctivae/corneas clear. No icterus. Neck: intubated Oral: intubated Cardiovascular: S1, S2 + Respiratory: AE fair bilaterally and equal GI: Soft, obese, large pannus, non-tender; bowel sounds + Musculoskeletal: trace pedal edema. Skin: No rash or abscess Hem/Lymphatic: No palpable cervical or supraclavicular nodes. No lymphangitis Psych: no agitation Neurological: Awake, following commands, intubated, on the vent, exam limited - Constitutional Vitals: Vital Signs Temp Pulse Resp BP Pulse Ox 98.1 F 69 18 121/68 100 04/27/20 09:14 04/27/20 13:39 04/27/20 10:00 04/27/20 13:39 04/27/20 10:00 Temperature -Last 24 Hours Temperature 98.1 F Temperature 98.4 F Temperature 98.3 F Temperature 98.4 F - Labs CBC & Chem 7: 04/27/20 09:13 04/27/20 08:44 Labs: Abnormal lab results 04/26/20 04/26/20 04/27/20 Range/Units 17:30 23:50 05:26 Hgb (10.1-14.3) gm/dl MCV (79-97) fl MCH (28-32) pg RDW (13.2-15.2) % Sodium (137-145) mmol/L Chloride (98-107) mmol/L Glucose (65-100) mg/dL POC Glucose 198 H 211 H 174 H (70-105) mg/dL 04/27/20 04/27/20 04/27/20 Range/Units 08:44 09:13 11:44 Hgb 10.0 L (10.1-14.3) gm/dl MCV 78 L (79-97) fl MCH 23 L (28-32) pg RDW 17.3 H (13.2-15.2) % Sodium 149 H (137-145) mmol/L Chloride 116.3 H (98-107) mmol/L Glucose 182 H (65-100) mg/dL POC Glucose 205 H (70-105) mg/dL
--- NOTE | 2020-04-27 15:05 | Progress Note ---
Assessment and Plan -- Acute encephalopathy Improving. She is more awake and alert at baseline - she has a normal conversation with family as per daughter. EEG suggestive for diffuse encephalopathy without any epileptiform discharge, Not able to have MRI brain ID recs appreciated. --Sepsis without septic shock Blood Cx - NGTD s/p IV cefepime and vancomycin started empirically. ID recs appreciated Not able to have CT abdomen and pelvis. White count improved Likely due to abdominal wall cellulitis -deep abdominal fold with maceration changed to Bactrim and Augmentin to complete until stop date 05/03/2020 ID signed off --Elevated troponin- ?Type 2 Cardiology note reviewed Not a candidate for aggressive therapy -- JOEL (acute kidney injury)/vasomotor nephropathy improved -- Hypernatremia, acute 2/2 volume depletion, continue free water with tube feeding and hypotonic normal saline -- IDDM (insulin dependent diabetes mellitus) Continue Lantus and SSI -- Hyperlipidemia Continue statins -- Hypertension Continue antihypertensives -- GERD (gastroesophageal reflux disease) Continue Protonix -- Peripheral neuropathy Continue Lyrica -- Seizure disorder Continue Lamictal No seizures noted this time. Neurology recs appreciated. EEG pending --Morbid obesity Rule out JANI Outpatient follow-up with pulmonary for sleep study --DVT prophylaxis Brief history: 54-year-old female with multiple medical problems including Peptic ulcer disease, Hypothyroidism, JANI, HLD, insulin-dependent diabetes, hypertension, and GERD, peripheral neuropathy and hyperlipidemia was found unresponsive and diaphoretic at home. In the ED the patient was feeling groggy and admits to shortness of breath and cough. Very when asked if she remembers how she ended up in the emergency room patient could not answer the question. Very poor historian. No fever or chills. Not known whether exposed to coronavirus. Early this year was treated for sepsis and encephalopathy. CXR: Unremarkable CT Head: IMPRESSION: There are stable postoperative changes involving frontal lobes with encephalomalacia and residual left parafalcine lesion as detailed above. Overall, this been no significant interval change from 11/27/2018. 04/17: Awaiting todays labs to evaluate renal function and obtain [employer]. Cardiology consulted for Type 2 DE, wound care also consulted due to 5th right toe wound, will adjust Insulin for Blood sugar. 04/18. Labs reviewed. Cardiology recommends ischemic work up prior to DC. Monitor blood gas 04/19. Discussed with patient's daughter who mentions that patient is usually able to have a normal conversation. Patient is also able to use her phone and post pictures on Facebook. Daughter's last conversation with patient was 4 days ago. In light of these changes, will order an LP to rule out encephalitis. MRI brain and EEG also ordered as per neurology evaluation earlier. Labs have been reviewed-started on hypotonic solution for hypernatremia. 04/20. Plan for MRI brain and EEG today. LP still pending. Neurology evaluation. Labs reviewed-sodium 154. Continue hypotonic solution/ 04/20PM. Patient was intubated for airway protection and transferred to the critical care unit. 04/21. She is slightly awake this morning. Not clearly following commands during my encounter. She was afebrile overnight. Her labs shows leukocytosis. LP still pending. She will need MRI brain as well to rule out CVA. EEG ordered. CT abdomen and pelvis will be ordered to determine any source of infection. Awaiting neurology reevaluation. 04/22. Not able to have CT and MRI as she cannot fit into machine. Plan for LP. Remains intubated. Neurology to see 04/23/20 patient is awake and alert and oriented, lab results reviewed, cardiology, ID, pulmonary and nephrology notes reviewed 04/25 resting, has NG tube. Has been NPO for >3 days. not on IVF. Speech therapy note reviewed. will consult thread spooler and will start on glucerna pending nutrition consult. 04/26 no acute events over nite. started on NGT feeds pending further rec. by speech therapy. All inter disciplinary notes reviewed. Discussed with CM regarding disposition. needs COVID test Prior to discharge 04/27: Patient currently on tube feeding, continue half-normal saline for hypernatremia along with free water with tube feeding. Wait on repeat speech eval for diet -ordered for MBS study. Discharge pending on improvement of swallow function and hyponatremia. Subjective Date of service: 04/27/20 Principal diagnosis: Elevated cardiac enzymes Objective - Exam Narrative Exam: VITAL SIGNS: Reviewed. GENERAL: Alert, moderately obese HEAD: No signs of head trauma. EYES: Pupils are equal. Extraocular motions intact. MOUTH: Oropharynx is normal. NECK: No adenopathy, no JVD. CHEST: CTA CARDIAC: Regular rate and rhythm ABDOMEN: Soft, non tender MUSCULOSKELETAL: Bilateral leg edema and right foot covered with dressing NEUROLOGIC EXAM: Patient is alert and oriented SKIN: No obvious lesions, discoloration of skin across the lower abdomen - Constitutional Vitals: Vital Signs - 12hr 04/27/20 04/27/20 04/27/20 03:44 05:37 06:00 Temperature 98.4 F Pulse Rate 75 75 Pulse Rate [ Left Dorsalis Pedis] Respiratory 21 18 Rate Blood Pressure 105/43 O2 Sat by Pulse 100 99 Oximetry 04/27/20 04/27/20 04/27/20 06:24 09:00 09:14 Temperature 98.1 F Pulse Rate 74 84 Pulse Rate [ Left Dorsalis Pedis] Respiratory 18 Rate Blood Pressure 120/72 124/61 O2 Sat by Pulse 99 100 Oximetry 04/27/20 04/27/20 10:00 13:39 Temperature Pulse Rate 69 Pulse Rate [ 79 Left Dorsalis Pedis] Respiratory 18 Rate Blood Pressure 121/68 O2 Sat by Pulse 100 Oximetry - Labs CBC & Chem 7: 04/27/20 09:13 04/27/20 08:44 Labs: Abnormal lab results 04/26/20 04/26/20 04/27/20 Range/Units 17:30 23:50 05:26 Hgb (10.1-14.3) gm/dl MCV (79-97) fl MCH (28-32) pg RDW (13.2-15.2) % Sodium (137-145) mmol/L Chloride (98-107) mmol/L Glucose (65-100) mg/dL POC Glucose 198 H 211 H 174 H (70-105) mg/dL 04/27/20 04/27/20 04/27/20 Range/Units 08:44 09:13 11:44 Hgb 10.0 L (10.1-14.3) gm/dl MCV 78 L (79-97) fl MCH 23 L (28-32) pg RDW 17.3 H (13.2-15.2) % Sodium 149 H (137-145) mmol/L Chloride 116.3 H (98-107) mmol/L Glucose 182 H (65-100) mg/dL POC Glucose 205 H (70-105) mg/dL HEART Score - HEART Score Age: 45-65 Risk factors: > 3 risk factors or hx of atherosclerotic disease Troponin: Troponin T < 0.010 ng/mL (0.00-0.029) 04/17/20 18:37 Troponin: 1-3x normal limit - Critical Actions Critical Actions: 4-6 pts:12-16.6% risk of adverse cardiac event. Should be admitted
[2020-04-27] MEDS: SODIUM CHLORIDE 0.45% 1000 ML 1,000 ML IV SCH (15:25)
--- NOTE | 2020-04-27 16:36 | XRay Report ---
XR abdomen 1V ap INDICATION: Tube placement. COMPARISON: 05/13/2019 FINDINGS: The tip of the esophagogastric tube projects over the left midabdomen. Signer Name: Les Stewart MD Signed: 04/27/2020 4:31 PM Workstation Name: [id number]
[2020-04-27] MEDS: SULFAMETHOXAZOLE/TRIMETHOPRIM 800/160MG DS TAB PO SCH (22:11)
[2020-04-27] MEDS: AMOXICILLIN/K CLAV 875/125MG TAB PO SCH (22:11)
[2020-04-27] MEDS: INSULIN GLARGINE 100 UNITS/ML SUB-Q SCH (22:45)
[2020-04-28] MEDS: INSULIN LISPRO 100 UNIT/ML VIAL 3 mL SUB-Q SCH ×3 (00:50→13:16)
[2020-04-28] MEDS: SODIUM CHLORIDE 0.45% 1000 ML 1,000 ML IV SCH (01:08)
[2020-04-28] MEDS: NITROGLYCERIN 0.2 MG PATCH 24HR TD SCH (06:29)
[2020-04-28] MEDS: LEVOTHYROXINE 50 MCG TAB PO SCH (06:29)
[2020-04-28] MEDS: CHOLECALCIFEROL (VIT D3) 1000 UNIT (25 mcg) TAB PO SCH (10:09)
[2020-04-28] MEDS: AMOXICILLIN/K CLAV 875/125MG TAB PO SCH (10:09)
[2020-04-28] MEDS: PREGABALIN 75 MG CAP PO SCH (10:09)
[2020-04-28] MEDS: AMIODARONE 200 MG TAB PO SCH (10:09)
[2020-04-28] MEDS: ASPIRIN 81 MG TAB CHEW PO SCH (10:09)
[2020-04-28] MEDS: SULFAMETHOXAZOLE/TRIMETHOPRIM 800/160MG DS TAB PO SCH (10:09)
[2020-04-28] MEDS: HEPARIN 5,000 UNIT/1 ML VIAL SUB-Q SCH (10:09)
[2020-04-28] MEDS: HYDROCORTISONE 10 MG TAB PO SCH (10:09)
[2020-04-28] MEDS: CLOPIDOGREL 75 MG TAB PO SCH (10:10)
[2020-04-28] MEDS: lamoTRIgine 25 MG TAB PO SCH (10:10)
[2020-04-28] MEDS: METOPROLOL TARTRATE 50 MG TAB PO SCH ×2 (10:18→13:28)
[2020-04-28] MEDS: PANTOPRAZOLE 40 MG TAB PO SCH ×2 (10:18→16:17)
--- NOTE | 2020-04-28 11:55 | Fluoroscopy Report ---
MODIFIED BARIUM SWALLOW INDICATION: dysphagia/ poss aspiration TECHNIQUE: Swallowing was evaluated in the lateral position under direct fluoroscopy. FINDINGS: The patient was evaluated with thin liquids, semisolid and puree consistencies. No aspiration or penetration was witnessed during this exam. Please correlate with the formal report by speech therapy. IMPRESSION: Unremarkable exam. Fluoroscopic time: 0.5 minutes Number of fluoroscopic images: 1 Signer Name: Ifeanyi Galvan Jr, MD Signed: 04/28/2020 11:51 AM Workstation Name: [id number]
--- NOTE | 2020-04-28 13:14 | Progress Note ---
Assessment and Plan Patient admitted with altered mental status, infected diabetic ulcer, possible abdominal cellulitis, sepsis, morbid obesity and respiratory failure. Cardiac status was notable for transient inferior injury pattern, resolved on subsequent ECGs. Due to multiple severe comorbidities, patient is not a candidate for aggressive invasive cardiac therapies, underlying coronary artery disease recommended for medical management. Prognosis is poor in the setting of multiple severe acute comorbidities. Subjective Date of service: 04/28/20 Principal diagnosis: Elevated cardiac enzymes Interval history: Patient is lethargic and sleepy, no acute distress. Objective Vital Signs Temp Pulse Resp BP Pulse Ox 04/28/20 12:00 71 04/28/20 08:55 99 04/28/20 08:01 18 100 04/28/20 07:38 98.9 F 78 20 138/62 100 04/28/20 06:29 70 124/67 04/28/20 04:15 97.3 F L 70 21 124/67 98 04/28/20 00:00 65 04/27/20 23:52 98.4 F 64 23 115/56 97 04/27/20 22:21 74 22 100 04/27/20 22:00 18 100 04/27/20 20:40 74 149/71 04/27/20 19:43 97.8 F 74 19 149/71 98 04/27/20 14:47 98.2 F 67 19 115/60 98 04/27/20 13:39 69 121/68 - Physical Examination General: No Apparent Distress, Other (Patient is lethargic and sleepy, but no acute respiratory distress) HEENT: Positive: Normocephaly Neck: Positive: neck supple, Other (No significant abnormality noted) Cardiac: Positive: Reg Rate and Rhythm Lungs: Positive: Decreased Breath Sounds Neuro: Positive: Grossly Intact, Other (Patient somnolent unable to evaluate. However moves all 4 extremities) Abdomen: Positive: Unremarkable Skin: Positive: Clear Extremities: Absent: edema - Imaging and Cardiology EKG: report reviewed
--- NOTE | 2020-04-28 13:39 | Discharge Summary ---
Providers - Providers Date of Admission: 04/16/20 22:25 Date of discharge: 04/28/20 Attending physician: TEODORA SANABRIA 04/17/20 06:52 Speech Therapy Evaluation and Treat [CONS] Urgent Reason For Exam: swallow eval 04/17/20 07:45 Consult to Wound/ET Nurse [CONS] Urgent Reason For Exam: Wound POA ----wound eval 04/17/20 07:50 Consult to Physician [CONS] Routine Comment: Consulting Provider: JEAN LOCKETT Physician Instructions: Reason For Exam: Elevated troponin 04/17/20 07:51 Consult to Physician [CONS] Routine Comment: Consulting Provider: LICO MISHRA Physician Instructions: Reason For Exam: Sepsis 04/17/20 08:07 Consult to Physician [CONS] Routine Comment: Consulting Provider: LIBERTAD HERNANDEZ Physician Instructions: Reason For Exam: JOEL 04/19/20 12:20 Consult to Physician [CONS] Routine Comment: Consulting Provider: TRISTON DIMAS Physician Instructions: Reason For Exam: Altered mental status 04/20/20 16:32 Consult to Dietitian/Nutrition [CONS] Routine Physician Instructions: Reason For Exam: Tube feeding Reason for Consult: Evaluate nutritional intake Consult to Physician [CONS] Routine Comment: Dr. Giraldo is aware/ armond Consulting Provider: HENRIQUE GIRALDO Physician Instructions: Reason For Exam: Vent management 04/24/20 09:52 Speech Therapy Evaluation and Treat [CONS] Routine Reason For Exam: swallow eval Primary care physician: ELIGIO ALBARADO Hospitalization Condition: Fair Disposition: DC-30 STILL A PATIENT Exam - Physical Exam Narrative exam: VITAL SIGNS: Reviewed. GENERAL: Alert, moderately obese HEAD: No signs of head trauma. EYES: Pupils are equal. Extraocular motions intact. MOUTH: Oropharynx is normal. NECK: No adenopathy, no JVD. CHEST: CTA CARDIAC: Regular rate and rhythm ABDOMEN: Soft, non tender MUSCULOSKELETAL: Bilateral leg edema and right foot covered with dressing NEUROLOGIC EXAM: Patient is alert and oriented SKIN: No obvious lesions, discoloration of skin across the lower abdomen - Constitutional Vitals: Temp Pulse Resp BP Pulse Ox 98.9 F 71 18 138/62 99 04/28/20 07:38 04/28/20 12:00 04/28/20 08:01 04/28/20 07:38 04/28/20 08:55 Plan Activity: advance as tolerated Weight Bearing Status: Weight Bear as Tolerated Diet: other (mechanical soft diet) Additional Instructions: Continue Bactrim and Augmentin to complete until stop date 05/03/2020 Follow up with: ELIGIO ALBARADO MD [Primary Care Provider] - 7 Days
[2020-04-28] MEDS ORDERED: ACETAMINOPHEN 325 MG TAB PO PRN (15:57)
[2020-04-28 16:25] VITALS: BP 166/59
[2020-04-28] MEDS ORDERED: INSULIN LISPRO 100 UNIT/ML VIAL 3 mL SUB-Q SCH (16:30)
== END 2020-04-28 19:02 | DRG 871 ==
LOC: ED 19:01 → 4A 22:25 → IMCU 04-20 16:42 → CC1 04-21 11:41 → 4A 04-22 23:45
PROVIDERS: ADMIT Internal Medicine; ATTEND Internal Medicine
PROC: 5A1945Z Respiratory Ventilation, 24-96 Consecutive Hours (ICD-10-PCS; principal; 2020-04-22)
PROC: 0BH17EZ Insertion of Endotracheal Airway into Trachea, Via Natural or Artificial Opening (ICD-10-PCS; 2020-04-22)
PROC: 4A033R1 Measurement of Arterial Saturation, Peripheral, Percutaneous Approach (ICD-10-PCS; 2020-04-22)
DX: A41.9 Sepsis, unspecified organism (principal); N17.0 Acute kidney failure with tubular necrosis; I21.A1 Myocardial infarction type 2; G93.41 Metabolic encephalopathy; J96.01 Acute respiratory failure with hypoxia; E87.5 Hyperkalemia; E11.9 Type 2 diabetes mellitus without complications; D32.9 Benign neoplasm of meninges, unspecified; E03.9 Hypothyroidism, unspecified; D64.9 Anemia, unspecified; M79.7 Fibromyalgia; K21.9 Gastro-esophageal reflux disease without esophagitis; I10 Essential (primary) hypertension; E78.5 Hyperlipidemia, unspecified; E11.42 Type 2 diabetes mellitus with diabetic polyneuropathy; D86.9 Sarcoidosis, unspecified; G47.33 Obstructive sleep apnea (adult) (pediatric); K27.9 Peptic ulcer, site unspecified, unspecified as acute or chronic, without hemorrhage or perforation; I95.9 Hypotension, unspecified; E87.6 Hypokalemia; E87.0 Hyperosmolality and hypernatremia; Z20.822 Contact with and (suspected) exposure to COVID-19; E66.01 Morbid (severe) obesity due to excess calories; N17.9 Acute kidney failure, unspecified; G40.909 Epilepsy, unspecified, not intractable, without status epilepticus; Z79.4 Long term (current) use of insulin; Z88.0 Allergy status to penicillin; Z88.1 Allergy status to other antibiotic agents; Z79.899 Other long term (current) drug therapy; Z79.891 Long term (current) use of opiate analgesic; Z79.01 Long term (current) use of anticoagulants; Z79.2 Long term (current) use of antibiotics; Z68.41 Body mass index [BMI] 40.0-44.9, adult
CPT/HCPCS: 36415; 36600; 70450; 71045; 74018; 74230; 80048; 80053; 80061; 80202; 80320; 81001; 82140; 82164; 82550; 82553; 82570; 82728; 82803; 82805; 82947; 82962; 83036; 83520; 83615; 83735; 83935; 84100; 84132; 84145; 84300; 84439; 84443; 84484; 85007; 85025; 85027; 85379; 85610; 85730; 86140; 87040; 87086; 90471; 93005; 93306; 94002; 94003; 94660; 94760; 95819; 96374; 96375; 96376; G0378; A9270-GY; C9113; G0480; J0610; J0692; J0696; J1644; J1815; J1953; J1956; J3370; J3475; J3480; J7030; J7040; J7070; U0003